=== PATIENT | male | born 1935 | race Caucasian/White ===

== ENCOUNTER 2024-04-07 07:36 | Observation (INO) | payer MEDICARE, SELFPAY ==
[2024-04-07] VITALS (17 sets, daily range): BP systolic 118–180; BP diastolic 67–93; PULSE 62–80; RESP 14–18; TEMP 36.1–37.2; O2SAT 91–100; BMI 29.1
[2024-04-07] MEDS: 0.9% Normal Saline (1000mL) 1,000 ML 15 ML IV (06:46)
--- NOTE | 2024-04-07 06:55 | PRE.ANES_ITS ---
ASA Classification* ASA Classification ASA Classification: 2 Assessment & Plan Anesthesia* Anesthesia Assessment Anesthesia Assessment: Discussed sedation and/or anesthesia options, risks, benefits, and alternatives with patient/parents/legal guardian/POA. Questions invited. The patient/parents/legal guardian/POA seems to understand and agrees to proceed with anesthesia plan. Reviewed the physical assessment, medical history, allergy history and patient home medications list prior to surgery/procedure/anesthetic and documented any changes. Performed airway and anesthesia risk assessments. Anesthesia Type Anesthesia Type: General Anesthesia Focused Assessment* Temperature: 97 F Pulse Rate: 80 Blood Pressure: 180/93 Respiratory Rate: 16 Pulse Ox: 96 Airway Assessment Mouth opens: >3 cm Mallampati Score: II Focused Labs Anesthesia Preop lab: CBC CHEMISTRY COAG Pre-Assessment Diagnosis/Proposed Procedure Planned Operative Procedure(s): Cysto,TUR,Prostate,Olympus and Removal of SP tube Anesthesia History Anesthesia History - destination sign repairer: Anesthesia History - destination sign repairer Hx Hospitalization Yes 03/24/24 11:26 Any Problems With Anesthesia No 03/24/24 11:26 Cholinesterase deficiency No 03/24/24 11:26 You/Your Family Experience No 03/24/24 11:26 fever (hyperthermia) with Relationship Recent Exposure to Contagious No 04/07/24 06:35 Disease Does patient have nerve No 03/24/24 11:26 stimulator Patient instructed to have device shut off --Does patient have Pacemaker No 04/07/24 06:35 or ICD? When Was Last Pacemaker Check QUESTION #4 FULL TEXT: You/Your Family Experience fever (hyperthermia) with Anesthesia Last Oral Intake Last Oral intake: Last Oral Intake NPO since 06:15 04/07/24 06:35 Meds taken in AM with sips of Yes 04/07/24 06:35 water? Meds patient instructed to SEE MAR 04/07/24 06:35 take am of surgery PONV PONV - destination sign repairer: PONV - destination sign repairer Female No 03/24/24 11:26 HX of Motion Sickness No 03/24/24 11:26 HX of N/V After Surgery No 03/24/24 11:26 Non-Smoker Yes 03/24/24 11:26 Duration of Surgery greater No 03/24/24 11:26 than 60 minutes Number of Risk Factors 1 03/24/24 11:26 PONV Score Low Risk 03/24/24 11:26 Height & Weight Height & Weight: Anesthesia: Height & Weight Height 5 ft 10 in 04/07/24 06:35 Weight: 92.079 kg 04/07/24 06:35 Body Mass Index (BMI) 29.1 04/07/24 06:35 Respiratory Assessment Respiratory Assessment - destination sign repairer: Respiratory Tract Infection Hx - destination sign repairer Hx Respiratory Tract Infection No 03/24/24 11:26 STOP Sleep Apnea STOP Sleep Apnea - destination sign repairer: STOP Sleep Apnea - destination sign repairer Hx Hypertension Yes: CONTROLLED ON MED 03/24/24 11:26 Hx Sleep Apnea No 03/24/24 11:26 CPAP BIPAP Do you snore loudly (louder No 03/24/24 11:26 than talking or can be heard Do you often feel tired/ No 03/24/24 11:26 fatigued/ sleepy during daytime? Has anyone observed you stop No 03/24/24 11:26 breathing during sleep? STOP Results Negative 03/24/24 11:26 QUESTION #5 FULL TEXT : Do you snore loudly (louder than talking or can be heard through closed doors)? Tobacco Use History Tobacco Use History - destination sign repairer: Tobacco Use History - destination sign repairer Tobacco Use Smoking Status Never smoker 03/24/24 11:26 Hx Tobacco Use No 03/24/24 11:26 Years Smoking Packs Smoked per Day Smoking Cessation Date was within the last 15 years Hx Smoking Cessation Date Hx Smoking Cessation Counseling Hematologic Medial History Hematologic Hx - destination sign repairer: Hematologic Medical Hx - certified pharmacy technician Hx of Blood Transfusion No 03/24/24 11:26 Hx of Transfusion in last 3 No 03/24/24 11:26 Months Date of Last Transfusion (if within last 3 months) Ever experience any problems No 03/24/24 11:26 with transfusion(s)? Specify any problems Hx of Preganancy in last 3 N/A 03/24/24 11:26 Months Nurse Filling Out Transfusion VCHRISTIN 03/24/24 11:26 & Questions: Date: 03/24/24 03/24/24 11:26 Time: 11:28 03/24/24 11:26 Patient unable to answer at this time (ie. confused, unrespo /Reproduction History /Reproductive History - destination sign repairer: /Reproductive Hx- destination sign repairer Hx Now Gestational Age (in weeks): EDC: Hx Hx Para Hx Section SAB Active Medications Active Medications: Current Medications Generic Name Dose Route Start Last Admin Trade Name Freq PRN Reason Stop Dose Admin Cefazolin Sodium 2 gm/ N/A 20 mls @ 400 mls/hr 04/07/24 07:30 IV 04/07/24 07:32 PREOP ONE Sodium Chloride 1,000 mls @ 15 mls/hr 04/07/24 06:20 04/07/24 06:46 IV 04/12/24 19:39 15 mls/hr .Q48H GAURI Administration Protocol [facility] Medical History Wears hearing aid Wears glasses Anemia Excessive bleeding DVT (deep venous thrombosis) Gastric reflux Non-smoker Hypertension Suprapubic catheter Home Medications ?Medication ?Instructions ?Recorded ?Last Taken ?Type ascorbic acid (vitamin C) 500 mg 500 mg PO DAILY 03/24/24 Unknown History tablet (C-500) calcium 315 mg (as 1 tab PO DAILY 03/24/24 Unknown History citrate)-vitamin D3 5 mcg (200 unit) tablet (Calcium Citrate + D) cholecalciferol (vitamin D3) 25 25 mcg PO DAILY 03/24/24 Unknown History mcg (1,000 unit) capsule (Vitamin D3) finasteride 5 mg tablet 5 mg PO DAILY 03/24/24 Unknown History fluticasone 500 mcg-salmeterol 50 1 inh inhalation PRN 03/24/24 Unknown History mcg/dose blistr powdr for inhalation fluticasone propionate 50 2 spray intranasal DAILY 03/24/24 Unknown History mcg/actuation nasal spray,suspension guaifenesin 600 mg tablet, 600 mg PO BID 03/24/24 Unknown History extended release 12 hr (Mucus Relief ER) multivitamin (Daily Multi-Vitamin 1 tab PO DAILY 03/24/24 Unknown History tablet) pantoprazole 40 mg tablet,delayed 40 mg PO DAILY 03/24/24 04/07/24 History release polyethylene glycol 3350 17 17 g PO DAILY PRN constipation 03/24/24 Unknown History gram/dose oral powder rivaroxaban 20 mg tablet (Xarelto) 20 mg PO DAILY 03/24/24 04/02/24 History valsartan 40 mg tablet 40 mg PO DAILY 03/24/24 04/07/24 History vit C 250 mg-vit E 90 mg-zinc 40 1 tab PO BID 03/24/24 Unknown History mg-copper 1 [id number] capsule (PreserVision AREDS-2) vitamin A 2,400 mcg capsule 2,400 mcg PO DAILY 03/24/24 Unknown History Allergy/AdvReac Type Severity Reaction Status Date / Time hydrocodone Allergy Severe Other Verified 04/07/24 06:34 Surgical History Hx of transurethral resection of prostate History of back surgery Social History Smoking Status: Never smoker Review of Systems (Anesthesia) ROS Narrative System reviewed and no additional complaints, except as documented.
[2024-04-07 07:07] LABS: Hematocrit 39.4 % (40-54); Hemoglobin 12.3 g/dL (13.0-16.5); Mean Corp Hgb Conc 31.2 g/dL (32-36); Mean Corpuscular Hgb 26.8 pg (27.0-32.0); Mean Corpuscular Volume 85.8 fL (80-94); Mean Platelet Vol. 9.8 fl (6.2-12.0); Platelet Count 217 K/mm3 (150-450); RBC Distribution Width CV 14.1 % (11.6-14.6); RBC Distribution Width SD 43.8 fl (35.1-43.9); Red Blood Count 4.59 M/mm3 (4.6-6.2)
--- NOTE | 2024-04-07 07:15 | PCM.HP.STD ---
HPI - General General Date of Service: 04/07/24 Chief Complaint: urine retention HPI Narrative NYDIA SALES, is a 89 M who presents for a turp for retention of urine, already had a turp at outside hospital and failed but on cysto still has obstructive tissue so going to repeat turp in hopes it will work and pt and void post op, will leave sp in place, pt is will to proceed but knows that surgery may fail and may not be able to void still? [facility] Medical History Wears hearing aid Wears glasses Anemia Excessive bleeding DVT (deep venous thrombosis) Gastric reflux Non-smoker Hypertension Suprapubic catheter Home Medications ?Medication ?Instructions ?Recorded ?Last Taken ?Type ascorbic acid (vitamin C) 500 mg 500 mg PO DAILY 03/24/24 Unknown History tablet (C-500) calcium 315 mg (as 1 tab PO DAILY 03/24/24 Unknown History citrate)-vitamin D3 5 mcg (200 unit) tablet (Calcium Citrate + D) cholecalciferol (vitamin D3) 25 25 mcg PO DAILY 03/24/24 Unknown History mcg (1,000 unit) capsule (Vitamin D3) finasteride 5 mg tablet 5 mg PO DAILY 03/24/24 Unknown History fluticasone 500 mcg-salmeterol 50 1 inh inhalation PRN 03/24/24 Unknown History mcg/dose blistr powdr for inhalation fluticasone propionate 50 2 spray intranasal DAILY 03/24/24 Unknown History mcg/actuation nasal spray,suspension guaifenesin 600 mg tablet, 600 mg PO BID 03/24/24 Unknown History extended release 12 hr (Mucus Relief ER) multivitamin (Daily Multi-Vitamin 1 tab PO DAILY 03/24/24 Unknown History tablet) pantoprazole 40 mg tablet,delayed 40 mg PO DAILY 03/24/24 04/07/24 History release polyethylene glycol 3350 17 17 g PO DAILY PRN constipation 03/24/24 Unknown History gram/dose oral powder rivaroxaban 20 mg tablet (Xarelto) 20 mg PO DAILY 03/24/24 04/02/24 History valsartan 40 mg tablet 40 mg PO DAILY 03/24/24 04/07/24 History vit C 250 mg-vit E 90 mg-zinc 40 1 tab PO BID 03/24/24 Unknown History mg-copper 1 [id number] capsule (PreserVision AREDS-2) vitamin A 2,400 mcg capsule 2,400 mcg PO DAILY 03/24/24 Unknown History Allergy/AdvReac Type Severity Reaction Status Date / Time hydrocodone Allergy Severe Other Verified 04/07/24 06:34 Surgical History Hx of transurethral resection of prostate History of back surgery Social History Smoking Status: Never smoker Vital Signs Vital Signs Vital Signs: 04/07/24 06:35 04/07/24 06:35 04/07/24 06:55 Temperature 97 F L 97 F L Temperature Source Temporal Pulse Rate 80 80 Respiratory Rate 16 16 Respiratory Pattern Normal Blood Pressure 180/93 H 180/93 H Blood Pressure Mean 122 Blood Pressure Source Monitor Blood Pressure Position Semi-Fowlers Blood Pressure Location Left Arm Pulse Ox 96 96 Oxygen Delivery Method Room Air Weight Weight: 92.079 kg Body Mass Index (BMI) 29.1 Results Lab / Micro Data 04/07/24 06:49 04/07/24 06:49 Labs: Laboratory Results - last 24 hr 04/07/24 06:49: WBC 6.0, RBC 4.59 L, Hgb 12.3 L, Hct 39.4 L, MCV 85.8, MCH 26.8 L, MCHC 31.2 L, RDW Std Deviation 43.8, RDW Coeff of Vikas 14.1, Plt Count 217, MPV 9.8
[2024-04-07 07:20] LABS: Anion Gap 2 (5-15); BUN 20 mg/dL (7-18); BUN/Creat Ratio 12.8 RATIO (10-20); Chloride 108 mmol/L (98-107); Creatinine, Serum 1.56 mg/dL (0.70-1.30); EST Glomerular Filtration Rate 45 mL/min (>60); Est Glom Filt Rate - Afr Amer 54 mL/min (>60); Estimated Creatinine Clearance 37.33 ml/min; Glucose 112 mg/dL (74-106); Potassium 4.4 mmol/L (3.5-5.1); Sodium Level 140 mmol/L (136-145)
[2024-04-07] MEDS: Cefazolin 2 GM in Syringe IV (07:30)
--- NOTE | 2024-04-07 07:30 | PROS_PTH ---
PATIENT: NYDIA SALES LOC: MS3 U#:[id number] AGE/SX: 89/M ROOM: [facility] [place]/07/[address]: Dr. Sina Augustine MD : [id number] BED: 1 DIS: 04/08/2024 SPEC #: [id number] RECD: 04/07/24 10:19 STATUS: ABBY DONOHUE #: [id number] KARIN: 04/07/24 07:[address]: Sina Augustine DEPT: SURGICAL PATHOLOGY RECD BY: Link Salazar ENTERED: 04/07/24 11:30 SP TYPE: TURP OTHR DR: Dr. Elvin Damian MD Tissues: Prostate, NOS Procedures: Surgery Specimen Level IV HEADER OPERATION: Transurethral resection, prostate PRE-OP DIAGNOSIS: TISSUE SUBMITTED: Prostate tissue MICROSCOPIC DIAGNOSIS Prostate tissue, transurethral resection: Benign nodular hyperplasia, glandular and stromal types. Focal squamous metaplasia. Chronic inflammation. AM. 04/08/2024 MICROSCOPIC DESCRIPTION Slides are reviewed. GROSS DESCRIPTION Received is one container labeled with the patient's name and designated prostate tissue. The specimen consists of multiple irregular fragments of pink-silvestre, rubbery, soft tissue that in aggregate weigh 7.7 gm and measure in aggregate 3.5 x 4.5 x 1.0 cm. The entire specimen is submitted in eight cassettes. 04/07/2024 TC:3 CPT: 74172
--- NOTE | 2024-04-07 07:39 | DCINST_ITS ---
Discharge Instructions Diet Discharge Diet: No restrictions, Light diet - advance as tolerated and Soft diet DC O2, CPAP, BIPAP needs Additional Home O2 Discharge instructions: No Dressing / Incision Discharge Activity: Return to Normal Activity May shower in (days): 1 Dressing / Incision Catheter: - (SP tube Clamped) Follow Up Care Please Follow Up With: Sina Augustine MD When: call for follow up appt [phone] Test Results: Test results from this visit will be discussed in further detail at your follow- up appointment, if applicable. Discharge Plan Admission Primary Reason for Your Visit: turp Attending Provider: Sina Augustine Primary Care Provider: Elvin Damian Instructions Print Language: Maori Discharge Orders/Prescriptions Prescriptions: New ciprofloxacin HCl [Cipro] 500 mg tablet 500 mg PO BID Qty: 14 0RF Continued pantoprazole 40 mg tablet,delayed release (DR/EC) 40 mg PO DAILY polyethylene glycol 3350 17 gram/dose powder 17 g PO DAILY PRN (Reason: constipation) fluticasone propionate 50 mcg/actuation spray,suspension 2 spray INTRANASAL DAILY valsartan 40 mg tablet 40 mg PO DAILY guaifenesin [Mucus Relief ER] 600 mg tablet extended release 12hr 600 mg PO BID PreserVision AREDS-2 250-90-40-1 mg capsule 1 tab PO BID vitamin A 2,400 mcg capsule 2,400 mcg PO DAILY cholecalciferol (vitamin D3) [Vitamin D3] 25 mcg (1,000 unit) capsule 25 mcg PO DAILY multivitamin [Daily Multi-Vitamin] Tablet 1 tab PO DAILY ascorbic acid (vitamin C) [C-500] 500 mg tablet 500 mg PO DAILY calcium citrate-vitamin D3 [Calcium Citrate + D] 315 mg-5 mcg (200 unit) table t 1 tab PO DAILY fluticasone propion-salmeterol 500-50 mcg/dose blister with device 1 inh INHALATION PRN Patient Comments: INHALE 1 DOSE BY MOUTH TWICE DAILY DIRECTED Held Xarelto 20 mg tablet 20 mg PO DAILY Hold Instructions: Resume on 04/21/24. Patient Comments: STOP 4 DAYS PRIOR TO SURGERY PER DR. AUGUSTINE Discontinued finasteride 5 mg tablet 5 mg PO DAILY Referrals / Follow Up: Elvin Damian MD [Primary Care Provider] - Sina Augustine MD [Med Staff - Active Staff] - Disposition Disposition (needs filled in before D/C Order can be placed): Home, Self Care
--- NOTE | 2024-04-07 08:48 | PCM.OPRPT ---
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 Post-Operative Diagnosis: The same Surgery/Procedure Performed: Transurethral section of prostate electronic data interchange specialist: No Type of Anesthesia: General RN Documented Start/Stop Times: Operation Date: 04/07/24 07:30 Case Time Into Pre-Op 04/07/24 06:18 Out of Pre-Op 04/07/24 07:27 Procedure Start Time: 07:45 Procedure Stop Time: 08:48 Select all DRAINS/GRAFTS/IMPLANTS that apply: Drains Drain details: Ackerman catheter and SP tube Estimated Blood Loss: Minimal le Specimen collected: Yes Description of specimen(s) removed: Prostate tissue Description of surgery: Indication this is an 89-year-old male who developed retention of urine and he underwent a TURP and a Ackerman placement and suprapubic catheter placement at outside hospital felt Ackerman catheter had been removed but he was still not able to urinate so he been having a chronic suprapubic catheter for last few months. He came in to see me for second opinion as to why he is not able to urinate we did a cystoscopy in the office and I found that on cystoscopy he still had significant obstruction of the prostate channel even though he had a prior TURP just done recently there was still a lot of obstruction near the apex and the sphincter of the prostatic channel and the fact obstruction was so severe that it would sealed in together and was very weak and hard to get through the blockage into the bladder so because of this I recommended that we do a TURP this would be a second TURP first TURP was done by another surgeon and this will be done by myself to resect the residual tissue that is still causing obstruction. Patient was taken back to the operating room after smooth induction of anesthesia went into the urethra with a 26 Swedish continuous-flow resectoscope once I got through the urethra the entire length urethra was clear of any strictures or problems sphincter was identified the verumontanum was identified but then right beyond the verumontanum the there was prostatic hypertrophy and blockage and it had sealed together and there was a tiny opening into the bladder I then pushed through this and then I saw the bladder neck the bladder neck was wide open I then switched over to the medium size loop and started resecting all this obstructive tissue I resected back to the verumontanum I then resected the obstructive tissue in the right side of the prostate obstructive tissue in the left side prostate tissue in the roof and then resected a wide open channel at this point I had no obstructive tissue from the verumontanum into the bladder neck. I did a flow test had a wide open flow the sphincter looked intact but I did have to resect a lot of tissue real close of the sphincter. Harsha that all the chips out of the bladder and we left a suprapubic catheter in place as a safety valve irrigation through the SP tube and out through the Ackerman urine was completely clear I cauterized the prostate to control bleeding and is taken back to the PACU in stable condition we will remove the catheter tomorrow for a voiding trial and either go home with an SP tube or be able to urinate his own and he will use the SP tube for voiding trial given the clamp to start retraining his bladder see him in the office in a few weeks to decide whether we remove the SP tube or keep it in place. Surgical Findings: Had a lot of significant obstruction in the prostatic channel even after a prior TURP done by another hospital Complications Complications: No Admit VTE Documentation VTE Present on Admission: No VTE Mechan Device Prophylaxis: SCD's VTE Pharm Prophylaxis ordered?: No
--- NOTE | 2024-04-07 08:51 | PCM.POST.ANE ---
Anesthesia: Postop Eval I Current Vital Signs Temperature: 98.4 F Pulse Rate: 73 Blood Pressure: 159/89 Respiratory Rate: 18 Pulse Ox: 96 Assessment Airway patent: Yes Spontaneous unlabored respirations: Yes nausea: No Vomiting: No Anesthesia Complication: No Fluid Hydration Crystalloid volume administer (ml): 1,000 Total IV fluid infused: 1,000 Progress Note Anesthesia document: Postop Eval 1 completed: Yes
[2024-04-07] MEDS: 0.9% Normal Saline (1000mL) 1,000 ML 75 ML IV ×2 (09:42→20:06)
--- NOTE | 2024-04-07 10:58 | POSTOPAN2_ITS ---
Anesthesia Postop Eval I Sum Postop Eval Completion status Anesthesia document: Postop Eval 1 completed: Yes Anesthesia Postop Eval I Summary Anesthesia Postop Eval I Summary: Anesthesia Postop Eval I: Assessment Summary Airway patent Yes 04/07/24 08:51 GENERAL MAINTENANCE MECHANIC.CSIR Spontaneous unlabored Yes 04/07/24 08:51 GENERAL MAINTENANCE MECHANIC.CSIR respirations Mental status nausea No 04/07/24 08:51 GENERAL MAINTENANCE MECHANIC.CSIR Vomiting No 04/07/24 08:51 GENERAL MAINTENANCE MECHANIC.CSIR Anesthesia Postop Eval I: Fluid Summary Crystalloid volume administer 1,000 04/07/24 08:51 GENERAL MAINTENANCE MECHANIC.CSIR (ml) Colloids volume administered ( ml) Blood Product volume administered (ml) Total IV fluid infused 1,000 04/07/24 08:51 GENERAL MAINTENANCE MECHANIC.CSIR Anesthesia Postop Eval I: Summary Notes Anesthesia Complication No 04/07/24 08:51 GENERAL MAINTENANCE MECHANIC.CSIR Anesthesia Complication Comment: Post-operative progress note Anesthesia: Postop Eval II Evaluation Mental status: Awake Pain Level: 0 nausea: No Vomiting: No
--- NOTE | 2024-04-07 10:58 | PCM.POSTANE2 ---
Anesthesia Postop Eval I Sum Postop Eval Completion status Anesthesia document: Postop Eval 1 completed: Yes Anesthesia Postop Eval I Summary Anesthesia Postop Eval I Summary: Anesthesia Postop Eval I: Assessment Summary Airway patent Yes 04/07/24 08:51 REAL ESTATE SALES AGENT.CSIR Spontaneous unlabored Yes 04/07/24 08:51 REAL ESTATE SALES AGENT.CSIR respirations Mental status nausea No 04/07/24 08:51 REAL ESTATE SALES AGENT.CSIR Vomiting No 04/07/24 08:51 REAL ESTATE SALES AGENT.CSIR Anesthesia Postop Eval I: Fluid Summary Crystalloid volume administer 1,000 04/07/24 08:51 REAL ESTATE SALES AGENT.CSIR (ml) Colloids volume administered ( ml) Blood Product volume administered (ml) Total IV fluid infused 1,000 04/07/24 08:51 REAL ESTATE SALES AGENT.CSIR Anesthesia Postop Eval I: Summary Notes Anesthesia Complication No 04/07/24 08:51 REAL ESTATE SALES AGENT.CSIR Anesthesia Complication Comment: Post-operative progress note Anesthesia: Postop Eval II Evaluation Mental status: Awake Pain Level: 0 nausea: No Vomiting: No
[2024-04-07] MEDS: Ciprofloxacin 400 MG/200 ML BAG 200 MG IV ×2 (12:13→23:19)
--- NOTE | 2024-04-07 12:52 | CASEMGMT ---
Charge nurse made aware pt would like to speak to RN CM regarding dc planning. RN CM into pt room, pt sitting up in bed with and son at bedside. Pt states that his had brain surgery recently and was in a rehab facility and he wants to know if he can stay an extra night in the hospital. Made pt aware that with his procedure, he has a dc in for tomorrow. Asked pt if he felt he couldn't manage at home. Pt states he ambulates without a device, but board states 1-2 assist. Pt stated he had HHC currently then stated it ended. Discussed SNF if pt needed. Pt does not want pt to go to SNF and does not want HHC again. Pt son did not speak for entire 20 minute conversation until the end when he asked his father why he had the RN CM come in. He states they will do at home what they were doing prior to this surgery. Pt asked about transportation resources but did not want any if he had to pay for them. Pt then states he agrees with and he will dc home without services. He is aware to ask for RN CM should he change his mind.
[2024-04-08 03:21] VITALS: BP 135/81; PULSE 75; RESP 16; TEMP 36.6; O2SAT 94
[2024-04-08 06:40] VITALS: BP 127/75; PULSE 70; RESP 16; TEMP 36.6; O2SAT 96
--- NOTE | 2024-04-08 07:21 | PCM.PN.GU ---
Subjective Subjective Doing well s/p TURP d/c lopez leave SP tube clamped. if he cant urinate he can unclamp and drain and then reclamp and try again!! show him how to unclamp and reclamp SP tube. home today Objective Data Objective Data Vital Signs: Vital Signs Temp Pulse Resp BP Pulse Ox O2 Del Method O2 Flow Rate 98 F 70 16 127/75 H 96 Room Air 2 04/08/24 06:40 04/08/24 06:40 04/08/24 06:40 04/08/24 06:40 04/08/24 06:40 04/08/24 06:40 04/07/24 10:50 Oxygen Flow Rate (L/min) 2 Oxygen Delivery Method Room Air Weight: 92.079 kg Body Mass Index (BMI) 29.1 Intake & Output: Intake and Output for Last 24 Hours 04/06/24 04/07/24 04/08/24 23:59 23:59 23:59 Intake Total 2200.00 / 2200.00 500 / 500 Output Total 1400 / 1400 100 / 100 Balance 800.00 / 800.00 400 / 400 Lab / Micro Data 04/07/24 06:49 04/07/24 06:49
[2024-04-08 07:44] VITALS: PULSE 80
[2024-04-08 09:48] VITALS: BP 144/88; PULSE 80; RESP 18; TEMP 37.3; O2SAT 98
[2024-04-08] MEDS: Docusate Sodium 100 MG Capsule 200 MG PO (09:50)
[2024-04-08] MEDS: Losartan Potassium 25 MG Tablet PO (09:50)
[2024-04-08] MEDS: Pantoprazole Sodium 40 MG Tablet PO (09:50)
[2024-04-08 12:00] VITALS: BP 124/70; PULSE 75; RESP 20; TEMP 36.6; O2SAT 95
--- NOTE | 2024-04-08 12:35 | NURSING ---
Call daughter Serena that pt is ready to be picked up. Said she will be here when she can be here.
--- NOTE | 2024-04-08 12:36 | NURSING ---
Dr Deleon removed cath this am.
== END 2024-04-08 13:54 | disposition home or self-care (01) ==
LOC: SDC 10:51 → MS3 10:51
PROVIDERS: Anesthesiology; Admitting Provider Urology; PCP Family Medicine; Referring Provider Urology; Visit Provider Urology
PROC: (CPT 52630; principal; 2024-04-07 07:20)
DX: N40.1 Benign prostatic hyperplasia with lower urinary tract symptoms (principal); Z93.50 Unspecified cystostomy status; K21.9 Gastro-esophageal reflux disease without esophagitis; Z79.01 Long term (current) use of anticoagulants; N13.8 Other obstructive and reflux uropathy; R33.8 Other retention of urine; I10 Essential (primary) hypertension; Z86.718 Personal history of other venous thrombosis and embolism; Z79.899 Other long term (current) drug therapy; Z79.51 Long term (current) use of inhaled steroids
CPT/HCPCS: 52630; 80048; 85027; 88305; 93005; 96361; 96365; 96366; 99221; G0378; J0744; J2405

== ENCOUNTER → 2024-10-30 | Outpatient (CLI) | payer MEDICARE, SELFPAY ==
--- OUTSIDE RECORDS SUMMARY | 2024-10-30 09:35 | XMS RPT_ITS | CCD ---
Author Organization [facility] Care Team Providers Care Group Home Counselor Name Role Phone Rickie Hermann Loi Primary Care Provider [phone] RICKIE HERMANN DANIEL Primary Care UnavailMAK Mares Admitting Unavailable MARY CHAVEZ Attending Unavailable Hermann Damian MD Primary Care Provider Ciro Frausto MD Unavailable [phone] Sana Marcos DO Unavailable Dana Plummer RN Unavailable Unavailable Davide, Anshul Admitting Unavailable Davide, Anshul Attending Unavailable Davide, Asnhul Referring Unavailable Rickie, Hermann Primary Care Unavailable RICKIE, HERMANN Primary Care Unavailable PRITI, SANA Attending Unavailable RICKIE, HERMANN Primary Care Unavailable RICKIE, HERMANN Primary Care Unavailable RICKIE, HERMANN Primary Care Unavailable KING BAEZA Attending Unavailable PRITI, SANA Admitting Unavailable PRITIERONSANA Attending Unavailable RICKIE, HERMANN Primary Care Unavailable RICKIE, HERMANN Primary Care Unavailable ANDRES SERVIN Attending Unavailable RICKIE, HERMANN Primary Care Unavailable CONRAD KNOX Attending Unavailable RICKIE, HERMANN Primary Care Unavailable ALBERTO ANGELES Attending Unavailable YASHIRA RODRIGUEZ Attending Unavailable RICKIE, HERMANN Primary Care Unavailable BRIDENTHAL, GRETCHEN Attending Unavailable RICKIE, HERMANN Primary Care Unavailable BRIDENTHAL, GRETCHEN Attending Unavailable RICKIE, HERMANN Primary Care Unavailable YASHIRA RODRIGUEZ Attending Unavailable RICKIE, HERMANN Primary Care Unavailable ANDRES SERVIN Referring Unavailable RICKIE, HERMANN Primary Care Unavailable BRIDENTHAL, GRETCHEN Attending Unavailable RICKIE, HERMANN Primary Care Unavailable RICKIE, HERMANN Attending Unavailable RICKIE, HERMANN Primary Care [facility] Unavailable SANA MARCOS Attending Unavailable HERMANN DAMIAN [facility] Unavailable HERMANN DAMIAN [facility] Unavailable SANA MARCOS Attending Unavailable RICKIEHERMANN WEEMS [facility] Unavailable [facility] Unavailable Allergies Allergy Classification Reported Allergen(s) Allergy Type Date of Onset Reaction(s) Facility beta Sitosterol / ZINC CITRATE (9 sources) beta Sitosterol / ZINC CITRATE Drug Allergy 2 Other [facility] Opioid Agonists (9 sources) HYDROcodone Drug Allergy 4 Other, Swelling [facility] (20 sources) beta Sitosterol / ZINC CITRATE Drug Allergy 2 Other [facility] (20 sources) HYDROcodone; Translations: [HYDROCODONE] Drug Allergy 4 Other, Swelling [facility] (20 sources) Levonorgestrel- Ethinyl Estrad; Translations: [LEVONORGESTREL -ETHINYL ESTRAD] Drug Allergy 4 Unknown [facility] (20 sources) Lisinopril Propensity to adverse reactions 4 Cough [facility] (1 source) HYDROcodone Drug Allergy 4 [facility] Repository Medications Current Medications Medication Drug Class(es) Dates Sig (Normalized) Sig (Original) albuterol 0.83 mg/ml inhalation solution (20 sources) beta2-Adrenergic Agonist Start: 01-13-2024 albuterol (2.5 MG/3ML) 0.083% nebulizer solution Indications: Wheezing Take 3 mL (2.5 mg) by nebulization every 6 hours as needed for wheezing. 150 mL 01/13/2024 Active Start: 10-05-2023 End: 10-06-2023 2.5 mg, Nebulization, As nee ded, wheezing, Starting on 10/05/23 at 1015, Every 1 to 3 hours as needed 24 hr alfuzosin hydrochloride 10 mg extended release oral tablet (20 sources) alpha-Adrenergic Mando Start: 09-03-2023 End: 12-02-2023 take 1 tablet by mouth once daily alfuzosin ER (Uroxatral) 10 MG 24 hr tablet Indications: Benign Prostatic Hypertrophy Take 1 tablet (10 mg) by mouth daily. Do not crush, chew, or split. 90 tablet 2 09/03/2023 12/02/2023 Active ALPRAZolam 0.25 mg disintegrating oral tablet (1 source) Benzodiazepine Start: 05-28-2019 ALPRAZolam (NIRAVAM) dissolvable tablet 0.25 mg amoxicillin 875 mg / clavulanate 125 mg oral tablet (3 sources) Penicillin-class Antibacterial Start: 2024 End: 04-08-2024 take 1 tablet by mouth twice daily amoxicillin-clavu lanate (Augmentin) 875-125 MG tablet Indications: Acute maxillary sinusitis, recurrence not specified Take 1 tablet by mouth 2 times daily for 10 days. 20 tablet 2024 04/08/2024 Active Start: 08-21-2023 End: 08-28-2023 take 1 tablet by mouth twice daily amoxicillin-clavulanate (Augmentin) 875-125 MG tablet Indications: Acute bacterial sinusitis Take 1 tablet by mouth 2 times daily for 7 days. 14 tablet 0 08/21/2023 08/28/2023 Active ascorbic acid 500 mg oral tablet (20 sources) Vitamin C take 500 mg by mouth at bedtime ASCORBIC ACID PO Take 500 mg by mouth before bedtime. Active ASCORBIC ACID PO Take by mouth. 0 Active ascorbic acid 113 mg / copper gluconate 0.4 mg / docosahexaenoic acid 87.5 mg / eicosapentaenoic acid 163 mg / lutein 2.5 mg / tocopherol acetate 100 unt / zeaxanthin 0.5 mg / zinc oxide 17.4 mg oral capsule (1 source) Vitamin C Multiple Vitamins-Minerals (PreserVision AREDS 2) capsule Take by mouth. Active benzonatate 200 mg oral capsule (1 source) Non-narcotic Antitussive Start: End: take 1 capsule by mouth three times daily as needed for cough benzonatate (Tessalon) 200 MG capsule Indications: Chronic cough Take 1 capsule (200 mg) by mouth 3 times daily as needed for cough for up to 7 days. Do not crush or chew. 21 capsule 11/12/2023 11/19/2023 Active Calcium Citrate / Vitamin D (20 sources) take 600 mg by mouth once at bedtime Calcium Citrate-Vitamin D (CALCIUM CITRATE + PO) Take 600 mg by mouth before bedtime. Suspended take 600 mg by mouth once at bed time Calcium Citrate-Vitamin D (CALCIUM CITRATE + PO) Take 600 mg by mouth before bedtime. Active take 600 mg by mouth once at bed time Calcium Citrate-Vitamin D (CALCIUM CITRATE + PO) Take 600 mg by mouth before bedtime. 0 Suspended take 600 mg by mouth once at bed time Calcium Citrate-Vitamin D (CALCIUM CITRATE + PO) Take 600 mg by mouth before bedtime. 0 Active Cholecalciferol (20 sources) Vitamin D take 125 ug by mouth at bedtime CHOLECALCIFEROL PO Take 125 mcg by mouth before bedtime. Suspended take 125 ug by mouth at bedtime CHOLECALCIFEROL PO Take 125 mcg by mouth before bedtime. Active take 125 ug by mouth at bedtime CHOLECALCIFEROL PO Take 125 mcg by mouth before bedtime. 0 Suspended take 125 ug by mouth at bedtime CHOLECALCIFEROL PO Take 125 mcg by mouth before bedtime. 0 Active CHOLECALCIFEROL PO Take by mouth. 0 Active ciclopirox 7.7 mg/ml topical cream (20 sources) Start: 09-11-2023 ciclopirox (Loprox) 0.77 % cream Indications: Toenail fungus Apply topically 2 times daily x4 weeks to affected toenails 90 g 09/11/2023 Active 1 ml diphenhydrAMINE hydrochloride 50 mg/ml cartridge (1 source) Histamine-1 Receptor Antagonist Start: 05-28-2019 End: 05-28-2019 diphenhydrAMINE (BENADRYL) injection 12.5 mg docusate sodium 50 mg / sennosides, chcf 8.6 mg oral tablet (20 sources) Start: 09-29-2023 End: 09-29-2024 take 1 tablet by mouth every twenty-four hours as needed for constipation and constipation and constipation senna-docusate sodium (Senokot-S) 8.6-50 MG tablet Indications: Constipation, unspecified constipation type Take 1 tablet by mouth Daily as needed for constipation (if no bowel movement in 3 days). 30 tablet 1 09/29/2023 09/29/2024 Active fexofenadine hydrochloride 180 mg oral tablet (2 sources) Histamine-1 Receptor Antagonist Start: 09-29-2024 take 1 tablet by mouth once daily as needed fexofenadine (Radha) 180 MG tablet Indications: Allergic rhinitis, unspecified seasonality, unspecified trigger Take 1 tablet (180 mg) by mouth Daily as needed (allergies). 90 tablet 1 09/29/2024 Active finasteride 5 mg oral tablet (20 sources) 5-alpha Reductase Inhibitor Start: 09-29-2023 End: 12-15-2024 take 1 tablet by mouth once daily finasteride (Proscar) 5 MG tablet Indications: Benign Prostatic Hypertrophy Take 1 tablet (5 mg) by mouth daily. Do not crush, chew, or split. 90 tablet 3 12/16/2023 12/15/2024 Active 60 actuat fluticasone propionate 0.5 mg/actuat / salmeterol 0.05 mg/actuat dry powder inhaler (20 sources) Corticosteroid, beta2-Adrenergi c Agonist Start: 12-16-2023 take 1 dose by mouth twice daily Fluticasone-Salmete rol 500-50 MCG/ACT aerosol powder INHALE 1 DOSE BY MOUTH TWICE DAILY DIRECTED 12/16/2023 Active 12 hr guaiFENesin 600 mg extended release oral tablet (20 sources) Start: 10-05-2023 End: 10-05-2024 take 1 tablet by mouth twice daily guaiFENesin (Mucinex) 600 MG 12 hr tablet Take 1 tablet (600 mg) by mouth 2 times daily. Do not crush, chew, or split. 60 tablet 3 10/13/2023 02/10/2024 Active 1 ml HYDROmorphone hydrochloride 1 mg/ml cartridge (4 sources) Opioid Agonist Start: 05-28-2019 HYDROmorphone (DILAUDID) injection 1 mg Start: 05-28-2019 HYDROmorphone (DILAUDID) injection 0.5 mg Start: 05-28-2019 HYDROmorphone (DILAUDID) injection 0.25 mg ipratropium bromide 0.042 mg/actuat metered dose nasal spray (2 sources) Anticholinergic Start: 10-04-2022 End: 10-11-2022 take 2 spray(s) nasal route three times daily ipratropium (Atrovent) 0.06 % nasal spray Indications: Rhinorrhea associated with the Common Cold Administer 2 sprays into each nostril 3 times daily for 7 days. 15 mL 0 10/04/2022 Active 4 ml labetalol hydrochloride 5 mg/ml cartridge (1 source) beta-Adrenergic Mando Start: 05-28-2019 labetalol (NORMODYNE;TRANDA TE) injection 5 mg 1 ml meperidine hydrochloride 25 mg/ml cartridge (1 source) Opioid Agonist Start: 05-28-2019 meperidine (DEMEROL) injection 12.5 mg mometasone furoate 0.05 mg/actuat metered dose nasal spray (2 sources) Corticosteroid Start: 09-29-2024 take 2 spray(s) nasal route once daily mometasone (Nasonex) 50 MCG/ACT nasal spray Indications: Allergic rhinitis, unspecified seasonality, unspecified trigger Administer 2 sprays into each nostril daily. 17 g 5 09/29/2024 Active Multiple Vitamins-Minerals (CENTRUM SILVER 50+MEN PO) (20 sources) Multiple Vitamins-Minerals (CENTRUM SILVER 50+MEN PO) Take by mouth Nightly. Active Multiple Vitamin s-Minerals (CENTRUM SILVER 50+MEN PO) Take by mouth Nightly. Suspended Multiple Vitamin s-Minerals (CENTRUM SILVER 50+MEN PO) Take by mouth 1 (one) time each day. Active Multiple Vitamin s-Minerals (CENTRUM SILVER 50+MEN PO) Take by mouth 1 (one) time each day. 0 Suspended Multiple Vitamin s-Minerals (CENTRUM SILVER 50+MEN PO) Take by mouth 1 (one) time each day. 0 Active NON FORMULARY (20 sources) take 1 drop(s) into the eye(s) twice daily as needed NON FORMULARY 2 times daily as needed. Unk eye drop Suspended take 1 drop(s) into the eye(s) twice daily as needed NON FORMULARY 2 times daily as needed. U nk eye drop Active take 1 drop(s) into the eye(s) twice daily as needed NON FORMULARY 2 times daily as needed. U nk eye drop 0 Suspended take 1 drop(s) into the eye(s) twice daily as needed NON FORMULARY 2 times daily as needed. U nk eye drop 0 Active omega-3 acid ethyl esters (chcf) 1000 mg oral capsule (2 sources) take 1 capsule by mouth once daily before breakfast Napoleon-3 Fatty Acids (OMEGA-3 FISH OIL) 1000 MG CAPS Take 1,000 mg by mouth every morning (before breakfast) 0 Active 2 ml ondansetron 2 mg/ml injection (1 source) Serotonin-3 Receptor Antagonist Start: 0 End: 0 ondansetron (ZOFRAN) injection 4 mg 24 hr oxybutynin chloride 10 mg extended release oral tablet (20 sources) Cholinergic Muscarinic Antagonist Start: 5 End: 5 take 1 tablet by mouth once daily oxybutynin XL (Ditropan-XL) 10 MG 24 hr tablet Indications: OAB (overactive bladder) Take 1 tablet (10 mg) by mouth daily. 90 tablet 1 10/13/2024 Active Start: 02-11-2022 End: 08-05-2023 take 1 tablet by mouth once daily oxybutynin XL (Ditropan-XL) 10 MG 24 hr tablet Take 10 mg by mouth daily. 0 02/11/2022 08/05/2023 Discontinued (Stop taking at discharge) polyethylene glycol 3350 23471 mg powder for oral solution (20 sources) Osmotic Laxative Start: 12-16-2023 End: 12-15-2024 polyethylene glycol, PEG, 3350 (MiraLax) 17 GM/SCOOP powder Indications: Constipation, unspecified constipation type Take 17 g by mouth daily. 850 g 3 12/16/2023 12/15/2024 Active Start: 09-29-2023 End: 11-28-2023 polyethylene glycol, PEG, 33 50 (MiraLax) 17 GM/SCOOP powder Indications: Constipation, unspecified constipation type Take 17 g by mouth daily. 1020 g 09/29/2023 11/28/2023 Active Start: 07-31-2023 End: 08-05-2023 17 g, Oral, Daily, First dos e on Alyce 07/31/23 at 1515, Phase II/On Unit, Bowel Regimen - for prevention of constipation., , On hold since [place] 08/03/2023 at 0852 until manually unheld 1 ml promethazine hydrochloride 25 mg/ml injection (1 source) Phenothiazine Start: 05-28-2019 End: 05-28-2019 promethazine (PHENERGAN) injection 6.25 mg rivaroxaban 20 mg oral tablet (20 sources) Factor Xa Inhibitor Start: 04-12-2024 End: 10-13-2024 take 1 tablet by mouth once daily at mealtime rivaroxaban (Xarelto) 20 MG tablet Indications: Other pulmonary embolism without acute cor pulmonale, unspecified chronicity (HCC) Take 1 tablet (20 mg) by mouth daily. Take with food. 90 tablet 1 10/13/2024 Active Start: 04-07-2024 End: 04-09-2024 take 1 tablet by mouth once daily at mealtime rivaroxaban (Xarelto) 20 MG tablet Take 1 tablet by mouth once daily with food 90 tablet 1 04/07/2024 04/09/2024 Discontinued (Reorder) Start: 11-11-2023 End: 01-06-2024 take 1 tablet by mouth once daily at mealtime rivaroxaban (Xarelto) 20 MG tablet Take 1 tablet (20 mg) by mouth daily. Take with food. Do not start before January 07, 2024. 90 tablet 1 01/07/2024 Active Start: 11-07-2023 take 1 tablet by brian th once daily at mealtime rivaroxaban (Xarelto) 20 MG tablet Take 1 tablet (20 mg) by mouth daily. Take with food. 30 tablet 2 11/07/2023 Active Start: 11-26-2022 End: 04-03-2023 take 1 tablet by mouth once daily, then take 8 tablets by mouth at mealtime rivaroxaban (Xarelto) 20 MG tablet Indications: Acute deep vein thrombosis (DVT) of popliteal vein of left lower extremity (HCC) Take 1 tablet (20 mg) by mouth daily. Take with food. Do not start before November 26, 2022. 30 tablet 2 11/26/2022 04/03/2023 Discontinued (Therapy completed) Start: 11-04-2022 End: 12-16-2022 take 1 tablet by mouth twice daily at mealtime rivaroxaban (Xarelto) 15 MG tablet Indications: Acute deep vein thrombosis (DVT) of popliteal vein of left lower extremity (HCC) Take 1 tablet (15 mg) by mouth 2 times daily for 21 days. Take with food. 42 tablet 0 11/04/2022 12/16/2022 Discontinued (Therapy completed) rosuvastatin calcium 5 mg oral tablet (6 sources) HMG-CoA Reductase Inhibitor Start: 04-13-2024 End: 10-10-2024 take 1 tablet by mouth once daily rosuvastatin (Crestor) 5 MG tablet Take 1 tablet (5 mg) by mouth daily. 30 tablet 04/13/2024 Active Completed/Discontinued Medications Medication Drug Class(es) Dates Sig (Normalized) Sig (Original) acetaminophen 325 mg oral tablet (9 sources) Start: 01-05-2024 End: 01-06-2024 take 1 tablet by mouth every six hours as needed for pain Start: 01-05-2024 End: 01-05-2024 take 1000 mg by mouth once, then take 4000 mg by mouth every twenty-four hours 1,000 mg, Oral, Once, On 01/05/24 at 0730, For 1 dose, Preprocedure, Maximum dose of acetaminophen is 4000 mg from all sources in 24 hours. Do not administer if patient has taken tylenol Start: 10-03-2023 End: 10-06-2023 take 1 tablet by mouth every six hours as needed for pain and fever acetaminophen (Tylenol) tablet 650 mg Start: 07-31-2023 End: 07-31-2023 acetaminophen (Tylenol) tabl et 1,000 mg Start: 05-28-2019 End: 05-28-2019 acetaminophen (TYLENOL) tabl et 1,000 mg acetaminophen 325 mg / oxyCODONE hydrochloride 5 mg oral tablet (9 sources) Opioid Agonist Start: 01-06-2024 End: 02-12-2024 take 1 tablet by mouth every six hours as needed for pain oxyCODONE-acetaminophen (Percocet) 5-325 MG tablet Indications: Benign prostatic hyperplasia with lower urinary tract symptoms Take 1 tablet by mouth every 6 hours as needed for severe pain (7-10) for up to 5 days. 10 tablet 01/06/2024 4:51 PM EDT 01/06/2024 02/12/2024 Discontinued Start: 08-05-2023 End: 08-12-2023 take 1 tablet by mouth every eight hours as needed for pain oxyCODONE-acetaminophen (Percocet) 5-325 MG tablet Indications: Lumbar stenosis with neurogenic claudication Take 1 tablet by mouth every 8 hours as needed for severe pain (7-10) for up to 7 days. 21 tablet 0 08/05/2023 08/12/2023 Active Start: 07-31-2023 End: 08-05-2023 take 1 tablet by mouth every four hours as needed for pain oxyCODONE-acetaminophen (Percocet) 5-325 MG per tablet 1 tablet Start: 05-28-2019 End: 05-31-2019 take 1 tablet by mouth every six hours as needed for pain, then take 1 tablet by mouth as needed for pain oxyCODONE-acetaminophen (PERCOCET) 5-325 MG per tablet Indications: Umbilical hernia without obstruction and without gangrene Take 1 tablet by mouth every 6 hours as needed for Pain for up to 3 days. Intended supply: 3 days. Take lowest dose possible to manage pain 20 tablet 0 05/28/2019 05/31/2019 Active albuterol 0.833 mg/ml / ipratropium bromide 0.167 mg/ml inhalation solution (2 sources) Anticholinergic, beta2-Adrenergic Agonist Start: 10-04-2023 End: 10-04-2023 3 mL, Nebulization, Once, On 10/04/23 at 0045, For 1 dose amLODIPine 10 mg oral tablet (20 sources) Dihydropyridine Calcium Channel Mando Start: 04-19-2022 End: 04-10-2023 take 1 tablet by mouth once daily amLODIPine (Norvasc) 10 MG tablet Indications: Essential hypertension, benign Take 1 tablet (10 mg) by mouth daily. 90 tablet 1 10/18/2022 04/10/2023 Discontinued (Side effects) Start: 10-07-2019 take 1 tablet by brian th once daily amLODIPine (NORVASC) 5 MG tablet Indications: Essential hypertension, benign Take 1 tablet by mouth daily 90 tablet 1 10/07/2019 Active Start: 12-25-2018 take 1 tablet by brian th once daily amLODIPine (NORVASC) 5 MG tablet Indications: Essential hypertension, benign Take 1 tablet by mouth daily 90 tablet 1 12/25/2018 Active apixaban 5 mg oral tablet (16 sources) Factor Xa Inhibitor Start: 11-03-2023 End: 11-07-2023 take 1 tablet by mouth twice daily apixaban (Eliquis) 5 MG tablet Take 1 tablet (5 mg) by mouth 2 times daily. 60 tablet 11/03/2023 11/07/2023 Discontinued Start: 10-06-2023 End: 12-10-2023 take 2 tablets by mouth twice daily, then take 1 tablet by mouth twice daily apixaban (Eliquis) 5 MG tablet Take 2 tablets (10 mg) by mouth 2 times daily for 5 days, THEN 1 tablet (5 mg) 2 times daily. 60 tablet 10/06/2023 11/03/2023 Discontinued (Reorder) Start: 10-04-2023 End: 10-06-2023 apixaban (Eliquis) tablet 10 mg bacitracin 0.5 unt/mg topical ointment (2 sources) Start: 01-05-2024 End: 01-06-2024 bisacodyl 10 mg rectal suppository (4 sources) Stimulant Laxative Start: 07-31-2023 End: 08-05-2023 take 10 mg rectal route every twenty-four hours as needed for constipation 10 mg, Rectal, Daily PRN, constipation, Starting on Alyce 07/31/23 at 1507, Phase II/On Unit, 2nd line for treatment of constipation - give scheduled (in addition to 1st line agent) if no bowel movement in past 48 hours Start: 07-31-2023 End: 08-05-2023 take 1 tablet by mouth every twenty-four hours as needed for constipation 5 mg, Oral, Daily PRN, constipation, Starting on Alyce 07/31/23 at 1507, Phase II/On Unit, 1st line for treatment of constipation - give scheduled if no bowel movement in past 24 hours. Do not crush, chew, or split. calcium carbonate 500 mg ora l tablet (20 sources) End: 10-04-2023 calcium carbonate (Os-Mariana) 1 250 (500 Ca) MG tablet Take by mouth daily. 10/04/2023 Discontinued (Therapy completed) calcium chloride 0.0014 meq/ ml / potassium chloride 0.004 meq/ml / sodium chloride 0.103 meq/ml / sodium lactate 0.028 meq/ml injectable solution (3 sources) Start: 07-31-2023 End: 07-31-2023 lactated Ringer's (LR) infus ion Start: 05-28-2019 lactated ringe rs infusion Dhqogyn-Upgrterrh-Xaax 333-1 33-5 MG tablet (19 sources) End: 04-10-2023 Tdpubyr-Xyyfnjjvz-Blzi 333-133-5 MG tablet Take by mouth. 0 04/10/2023 Discontinued (Therapy completed) Calcium-Magnesiu m-Zinc 333-133-5 MG tablet Take by mouth. 0 Active carboxymethylcellulose sodium 5 mg/ml ophthalmic solution (2 sources) Start: 10-05-2023 End: 10-06-2023 1 drop, Both Eyes, As needed, dry eyes, Starting on Fri10/05/23 at 1004 carboxymethylcellulose 0.0025 mg/mg / hypromellose 0.003 mg/mg ophthalmic gel (20 sources) End: 05-20-2023 Carboxymethylce ll-Hypromellose 0.25-0.3 % gel Apply to affected eye(s). 0 05/20/2023 Discontinued ceFAZolin 2000 mg injection (2 sources) Cephalosporin Antibacterial Start: 07-31-2023 End: 07-31-2023 take 2000 mg intravenously every eight hours 2,000 mg, IntraVENous, Administer over 30 Minutes, Every 8 hours, First dose on Alyce 07/31/23 at 1515, For 2 doses, Phase II/On Unit, premix bag, Suspected Indication (Select all that apply): Surgical Prophylaxis ceFAZolin (ANCEF) 2 g in dextrose 5 % 100 mL IVPB (1 source) Start: 05-28-2019 End: 05-28-2019 ceFAZolin (ANCEF) 2 g in dextrose 5 % 100 mL IVPB cefTRIAXone (Rocephin) 1,000 mg in sodium chloride 0.9 % 50 mL IVPB Mini-Bag Plus (8 sources) Start: 01-28-2024 End: 01-28-2024 1,000 mg, IntraVENous, at 100 mL/hr, Administer over 30 Minutes, Once, On Fri01/28/24 at 1755, For 1 dose, Mini-Bag Plus bag, Suspected Indication (Select all that apply): Urinary Tract Infection Start: 10-05-2023 End: 10-06-2023 1,000 mg, IntraVENous, at 10 0 mL/hr, Administer over 30 Minutes, Every 24 hours, First dose (after last modification) on Fri10/05/23 at 0400, For 3 doses, Mini-Bag Plus bag, Suspected Indication (Select all that apply): Urinary Tract Infection Start: 10-03-2023 End: 10-04-2023 1,000 mg, IntraVENous, at 10 0 mL/hr, Administer over 30 Minutes, Every 24 hours, First dose on Fri10/03/23 at 2230, Mini-Bag Plus bag, Suspected Indication (Select all that apply): Urinary Tract Infection Start: 10-03-2023 End: 10-03-2023 1,000 mg, IntraVENous, at 10 0 mL/hr, Administer over 30 Minutes, Once, On Fri10/03/23 at 1305, For 1 dose, Mini-Bag Plus bag, Suspected Indication (Select all that apply): Urinary Tract Infection cefuroxime 500 mg oral tablet (12 sources) Cephalosporin Antibacterial Start: 01-28-2024 End: 02-12-2024 take 1 tablet by mouth twice daily cefuroxime (Ceftin) 500 MG tablet Take 1 tablet (500 mg) by mouth 2 times daily for 7 days. 14 tablet 01/28/2024 02/12/2024 Discontinued (Therapy completed) celecoxib 200 mg oral capsule (1 source) Nonsteroidal Anti-inflammatory Drug Start: 05-28-2019 End: 05-28-2019 celecoxib (CELEBREX) capsule 200 mg cephalexin 500 mg oral capsule (1 source) Cephalosporin Antibacterial Start: 11-04-2022 End: 11-04-2022 cephalexin (Keflex) 500 MG capsule Indications: Cellulitis of left lower extremity Take 1 capsule (500 mg) by mouth in the morning and 1 capsule (500 mg) at noon and 1 capsule (500 mg) in the evening and 1 capsule (500 mg) before bedtime. Do all this for 7 days. 28 capsule 0 11/04/2022 11/04/2022 Discontinued cetirizine hydrochloride 10 mg oral tablet (3 sources) Histamine-1 Receptor Antagonist Start: 07-31-2023 End: 08-05-2023 take 10 mg by mouth once daily 10 mg, Oral, Daily, First dose on Fri07/31/23 at 2200, Phase II/On Unit End: 05-20-2019 take 1 tablet by mouth once daily cetirizine (ZYRTEC ALLERGY) 10 MG tablet Take 10 mg by mouth daily 0 05/20/2019 Discontinued (Therapy completed) ciprofloxacin 500 mg oral tablet (7 sources) Quinolone Antimicrobial Start: 04-07-2024 End: 10-13-2024 take 1 tablet by mouth twice daily ciprofloxacin (Cipro) 500 MG tablet Take 500 mg by mouth 2 times daily. 04/07/2024 10/13/2024 Discontinued (Med list cleanup) clobetasol propionate 0.5 mg/ml topical solution (4 sources) Corticosteroid Start: 03-10-2023 End: 05-20-2023 clobetasol (Temovate) 0.05 % external solution APPLY TOPICALLY AT NIGHT FOR 2 WEEKS TAKING 1 WEEK OFF BEFORE REPEATING NEEDED FOR FLARES 0 03/10/2023 05/20/2023 Discontinued Cranberry, Vacc oxycoccus, (Cranberry Extract) 200 MG capsule (19 sources) End: 04-10-2023 Cranberry, Vacc oxycoccus, (Cranberry Extract) 200 MG capsule Take by mouth. 0 04/10/2023 Discontinued (Therapy completed) Cranberry, Vacc oxycoccus, (Cranberry Extract) 200 MG capsule Take by mouth. 0 Active diphenhydrAMINE / Phenylephrine (1 source) Histamine-1 Receptor Antagonist, alpha-1 Adrenergic Agonist End: 10-18-2022 diphenhydrAMINE-Phenylephrin e (RA ALLERGY PLUS SINUS PO) Take by mouth. 0 10/18/2022 Discontinued [id number] PAP (ALLERGY RELIEF PLUS SINUS PO) (4 sources) End: 10-18-2022 [id number] (ALL ERGY RELIEF PLUS SINUS PO) Take by mouth. 0 10/18/2022 Discontinued diphenhydrAMINE- PE-APAP (ALLERGY RELIEF PLUS SINUS PO) Take by mouth. 0 Active docosahexaenoic acid 120 mg / eicosapentaenoic acid 180 mg oral capsule (20 sources) End: 04-10-2023 omega-3 (Fish Oil) 1000 MG capsule Take 1,000 mg by mouth. 0 04/10/2023 Discontinued (Therapy completed) docusate sodium 100 mg oral capsule (20 sources) Start: 08-21-2023 End: 03-09-2024 take 1 capsule by mouth once daily as needed for constipation docusate sodium (Colace) 100 MG capsule Indications: Drug-induced constipation Take 1 capsule (100 mg) by mouth Daily as needed for constipation. 90 capsule 1 09/11/2023 10/06/2023 Discontinued (Stop taking at discharge) Start: 07-31-2023 End: 08-05-2023 take 100 mg by mouth twice daily for constipation 100 mg, Oral, 2 times daily, First dose on Alyce 07/31/23 at 2100, Phase II/On Unit, Bowel Regimen - for prevention of constipation., , On hold since 08/03/2023 at 0852 until manually unheld 0.4 ml enoxaparin sodium 100 mg/ml prefilled syringe (2 sources) Low Molecular Weight Heparin Start: 10-04-2023 End: 10-04-2023 inject 40 mg by subcutaneous injection every twenty-four hours 40 mg, SubCUTAneous, Every 24 hours scheduled (Daily), First dose on 10/04/23 at 0900, Indication of Use: Prophylaxis-DVT/PE, Indications: Prophylaxis of Venous Thromboembolism famotidine 20 mg oral tablet (20 sources) Histamine-2 Receptor Antagonist Start: 08-02-2023 End: 08-05-2023 famotidine (Pepcid) tablet 20 mg Start: 05-28-2019 End: 10-13-2024 famotidine (PEPCID) tablet 2 0 mg famotidine (Pepcid) 20 mg in sodium chloride (PF) 0.9 % 10 mL injection (2 sources) Start: 08-01-2023 End: 08-02-2023 famotidine (Pepcid) 20 mg in sodium chloride (PF) 0.9 % 10 mL injection 2 ml fentaNYL 0.05 mg/ml injection (2 sources) Opioid Agonist Start: 07-31-2023 End: 07-31-2023 fentaNYL (Sublimaze) injection 25 mcg ferrous sulfate 325 mg oral tablet (20 sources) Start: 10-14-2023 End: 10-13-2024 take 1 tablet by mouth every other day ferrous sulfate 325 (65 Fe) MG tablet Indications: Anemia, unspecified type Take 1 tablet (325 mg) by mouth every other day. 45 tablet 1 10/14/2023 11/12/2023 Discontinued (Therapy completed) End: 10-14-2023 take 65 mg by mouth once daily Ferrous Sulfate Dried ( FERROUS SULFATE CR PO) Take 65 mg by mouth 1 (one) time each day. 10/14/2023 Discontinued take 65 mg by mouth once daily F errous Sulfate Dried (FERROUS SULFATE CR PO) Take 65 mg by mouth 1 (one) time each day. Active take 65 mg by mouth once daily F errous Sulfate Dried (FERROUS SULFATE CR PO) Take 65 mg by mouth 1 (one) time each day. 0 Suspended take 65 mg by mouth once daily F errous Sulfate Dried (FERROUS SULFATE CR PO) Take 65 mg by mouth 1 (one) time each day. 0 Active Ferrous Sulfate Dried (FERROUS SULFATE CR PO) Take by mouth. 0 Active fluticasone propionate 0.05 mg/actuat metered dose nasal spray (20 sources) Corticosteroid Start: 09-09-2022 End: 09-29-2024 take 2 spray(s) nasal route once daily fluticasone (Flonase) 50 MCG/ACT nasal spray Indications: Sinus congestion Administer 2 sprays into each nostril daily. Shake gently. Before first use, prime pump. After use, clean tip and replace cap. 16 g 5 09/11/2023 09/29/2024 Discontinued (Formulary change) 4 ml furosemide 10 mg/ml injection (7 sources) Loop Diuretic Start: 10-03-2023 End: 10-04-2023 20 mg, IntraVENous, Once, On 10/04/23 at 0045, For 1 dose Start: 04-07-2023 End: 04-10-2023 take 1 tablet by mouth once daily furosemide (Lasix) 20 MG tablet Indications: Bilateral lower extremity edema Take 1 tablet (20 mg) by mouth daily for 2 days. 2 tablet 0 04/07/2023 04/10/2023 Discontinued (Therapy completed) gabapentin 100 mg oral capsule (13 sources) Anti-epileptic Agent Start: 09-12-2022 End: 04-03-2023 take 3 capsules by mouth every twelve hours gabapentin (Neurontin) 100 MG capsule Take 300 mg by mouth in the morning and 300 mg in the evening. 0 09/12/2022 04/03/2023 Discontinued (Therapy completed) Start: 09-12-2022 take 1 capsule by [facility] once daily gabapentin (Neurontin) 100 MG capsule TAKE 1 CAPSULE BY MOUTH ONCE DAILY DIRECTED 0 09/12/2022 Active Start: 05-28-2019 End: 05-28-2019 gabapentin (NEURONTIN) capsu le 100 mg 1 ml hydrALAZINE hydrochloride 20 mg/ml injection (3 sources) Arteriolar Vasodilator Start: 07-31-2023 End: 08-05-2023 take 10 mg intravenously every six hours as needed for hypertension hydrALAZINE (Apresoline) injection 10 mg Start: 05-28-2019 hydrALAZINE (A PRESOLINE) injection 5 mg hydroCHLOROthiazide 25 mg / triamterene 37.5 mg oral tablet (12 sources) Potassium-sparing Diuretic, Thiazide Diuretic Start: 04-10-2023 End: 08-05-2023 take 1 tablet by mouth once daily triamterene-hydrochlorothiazide (Maxzide-25) 37.5-25 MG tablet Take 1 tablet by mouth daily. 30 tablet 0 04/10/2023 08/05/2023 Discontinued (Stop taking at discharge) hydrocortisone 25 mg/ml topical cream (6 sources) Corticosteroid Start: 04-03-2023 End: 04-02-2024 hydrocortisone 2.5 % cream Indications: Dermatitis Apply topically 2 times daily as needed for irritation or rash. 30 g 0 04/03/2023 04/10/2023 Discontinued (Therapy completed) ibuprofen 200 mg oral tablet (9 sources) Nonsteroidal Anti-inflammatory Drug End: 08-05-2023 take 3 tablets by mouth every eight hours as needed ibuprofen 200 MG tablet Take 600 mg by mouth every 8 hours as needed. 0 08/05/2023 Discontinued (Stop taking at discharge) ibuprofen 200 MG tablet Take by mouth. 0 Active iopamidol (Isovue-370) 76 % injection 75 mL (2 sources) Start: 10-03-2023 End: 10-03-2023 iopamidol (Isovue-370) 76 % injection 75 mL ketoconazole 20 mg/ml medicated shampoo (4 sources) Azole Antifungal Start: 01-22-2023 End: 05-20-2023 ketoconazole (NIZOral) 2 % shampoo WASH THE SCALP DAILY WHEN FLARED, THEN 1-2 TIMES PER WEEK FOR MAINTENANCE. LATHER & LET SIT FOR A FEW MINUTES BEFORE RINSING. 0 01/22/2023 05/20/2023 Discontinued lidocaine 0.04 mg/mg medicated patch (5 sources) Antiarrhythmic, Amide Local Anesthetic Start: 07-31-2023 End: 08-05-2023 apply 1 dose topically once daily, then apply 1 dose topically every twelve hours 1 patch, Topical, Administer over 12 Hours, Daily, First dose on Alyce 07/31/23 at 1515, Phase II/On Unit, Apply patch to LUMBAR SPINE. Patch may remain in place for up to 12 hours in any 24 hour period. Start: 05-20-2023 End: 05-20-2023 lidocaine (Xylocaine) 2 % in jection 4 mL Start: 05-20-2023 End: 05-20-2023 lidocaine (Xylocaine) 2 % in jection 4 mL Start: 05-28-2019 End: 05-28-2019 lidocaine PF 1 % injection 1 mL lisinopril 20 mg oral tablet (13 sources) Angiotensin Converting Enzyme Inhibitor Start: 04-19-2022 End: 11-18-2022 take 1 tablet by mouth once daily lisinopril 20 MG tablet Indications: Essential hypertension, benign Take 1 tablet (20 mg) by mouth daily. 90 tablet 1 10/18/2022 11/18/2022 Discontinued (Side effects) Start: 10-07-2019 take 1 tablet by brian th once daily lisinopril (PRINIVIL;ZESTRIL) 20 MG tablet Indications: Essential hypertension, benign Take 1 tablet by mouth daily 90 tablet 1 10/07/2019 Active Start: 12-25-2018 take 1 tablet by brian th once daily lisinopril (PRINIVIL;ZESTRIL) 20 MG tablet Indications: Essential hypertension, benign Take 1 tablet by mouth daily 90 tablet 1 12/25/2018 Active loratadine 10 mg oral tablet (20 sources) End: 10-04-2023 take 10 mg by mouth at bedtime Loratadine (CLARITIN PO) Take 10 mg by mouth before bedtime. 10/04/2023 Discontinued (Therapy completed) Loratadine (CLAR ITIN PO) Take by mouth daily. 0 Active Loratadine (CLAR ITIN PO) Take by mouth. 0 Active 1 ml methylPREDNISolone acetate 40 mg/ml injection (2 sources) Corticosteroid Start: 05-20-2023 End: 05-20-2023 methylPREDNISolone acetate (DEPO-Medrol) injection 40 mg Start: 05-20-2023 End: 05-20-2023 methylPREDNISolone acetate ( DEPO-Medrol) injection 40 mg morphine injection 2 mg (2 sources) Start: 07-31-2023 End: 08-05-2023 morphine injection 2 mg 1 ml naloxone hydrochloride 0.4 mg/ml injection (6 sources) Opioid Antagonist Start: 01-05-2024 End: 01-06-2024 0.4 mg, IntraVENous, Every 5 min PRN, opioid reversal, respiratory depression, Starting on 01/05/24 at 1400, +++ For RR Start: 08-05-2023 End: 08-05-2023 naloxone (Narcan) 4 mg/0.1 m L nasal spray Administer 1 spray (4 mg) into affected nostril(s) Once for 1 dose. May repeat every 2-3 minutes if needed, alternating nostrils, until medical assistance becomes available. 2 each 0 08/05/2023 08/05/2023 Active Start: 07-31-2023 End: 08-05-2023 naloxone (Narcan) injection 0.4 mg Normal saline (2 sources) Start: 10-04-2023 End: 10-06-2023 Nasal, Every 2 hour PRN, congestion, Starting on 10/04/23 at 1326 ondansetron ODT (Zofran-ODT) disintegrating tablet 4 mg (6 sources) Start: 01-05-2024 End: 01-06-2024 take 1 tablet by mouth every eight hours as needed for nausea and vomiting ondansetron ODT (Zofran-ODT) disintegrating tablet 4 mg Start: 10-03-2023 End: 10-06-2023 take 1 tablet by mouth every eight hours as needed for nausea and vomiting ondansetron ODT (Zofran-ODT) disintegrating tablet 4 mg Start: 07-31-2023 End: 08-05-2023 take 1 tablet by mouth every eight hours as needed for nausea and vomiting ondansetron ODT (Zofran-ODT) disintegrating tablet 4 mg oxyCODONE hydrochloride 5 mg oral tablet (9 sources) Opioid Agonist Start: 01-30-2024 End: 01-30-2024 take 10 mg by mouth once 10 mg, Oral, Once, On Fri01/30/24 at 2310, For 1 dose Start: 01-30-2024 End: 01-30-2024 take 10 mg by mouth once 10 mg, Oral, Once, On Fri at 2310, For 1 dose Start: 01-29-2024 End: 01-29-2024 take 10 mg by mouth once 10 mg, Oral, Once, On Alyce at 2345, For 1 dose Start: 01-28-2024 End: 01-28-2024 take 10 mg by mouth once 10 mg, Oral, Once, On Fri at 1715, For 1 dose Start: 01-05-2024 End: 01-06-2024 take 1 tablet by mouth every six hours as needed for pain and pain 5 mg, Oral, Every 6 hours PRN, moderate pain (4-6), severe pain (7-10), Starting on Fri01/05/24 at 1104 Start: 05-28-2019 End: 05-28-2019 oxyCODONE (ROXICODONE) immed iate release tablet 5 mg pantoprazole 40 mg delayed release oral tablet (20 sources) Proton Pump Inhibitor Start: 11-27-2023 End: 10-13-2024 take 1 tablet by mouth once daily pantoprazole (ProtoNix) 40 MG EC tablet Take 1 tablet (40 mg) by mouth daily. 90 tablet 1 05/24/2024 10/13/2024 Discontinued (Med list cleanup) perflutren protein A microsphere (Optison) 3 mL in sodium chloride (PF) 0.9 % 10 mL IV syringe (2 sources) Start: 01-06-2024 End: 01-06-2024 0-10 mL, IntraVENous, IMG once PRN, other, Suboptimal echo image, Starting on Fri01/06/24 at 1559, For 1 dose, CV Procedural Medications, Administer via slow IVP for suboptimal echocardiogram enhancement. May administer as divided doses to reach optimal image enhancement pregabalin 75 mg oral capsule (6 sources) Start: 03-20-2023 End: 04-10-2023 take 1 capsule by mouth twice daily pregabalin (Lyrica) 75 MG capsule TAKE 1 CAPSULE BY MOUTH TWICE DAILY DIRECTED 0 03/20/2023 04/10/2023 Discontinued (Therapy completed) simethicone 80 mg chewable tablet (2 sources) Start: 08-01-2023 End: 08-05-2023 simethicone (Mylicon) chewable tablet 80 mg 5 ml sodium chloride 9 mg/ml injection (20 sources) Start: 01-05-2024 End: 01-06-2024 take 50 mL intravenously every hour 50 mL/hr, IntraVENous, Continuous, Starting on Fri01/05/24 at 1115 Start: 01-05-2024 End: 01-06-2024 10 mL, IntraVENous, Every 12 hours scheduled (2 times per day), First dose on 01/05/24 at 1115 Start: 01-05-2024 End: 01-06-2024 Start: 01-05-2024 End: 01-06-2024 Start: 08-03-2023 End: 08-04-2023 sodium chloride 0.9 % infusi on Start: 07-31-2023 End: 08-05-2023 10 mL, IntraVENous, Every 12 hours scheduled (2 times per day), First dose on Alyce 07/31/23 at 2100, Phase II/On Unit Start: 07-31-2023 End: 08-02-2023 take 75 mL intravenously every hour 75 mL/hr, IntraVENous, Continuous, Starting on Alyce 07/31/23 at 1515, Phase II/On Unit Start: 07-31-2023 End: 08-05-2023 take 100 mL intravenously every hour as needed, then take 20 mL intravenously every hour as needed 5-250 mL/hr, IntraVENous, PRN, if patient receiving piggyback infusions and maintenance fluids are not ordered OR KVO fluids to protect IV site / prevent frequent line interruptions/ long duration, Starting on Alyce 07/31/23 at 1507, Phase II/On Unit, For piggyback infusion, administer at same rate as piggyback for a total of 25 mL. Enter 25 mL into dose field and piggyback rate into rate field of order. If piggyback is infusing at a rate less than 100 mL/hr, enter 25 mL into dose field and 100 mL/hr into rate field of order. For KVO fluids, enter rate of 20 mL/hr or less into rate field of order. Start: 07-31-2023 End: 08-05-2023 take 10 mL intravenously once as needed 10 mL, IntraVENous, PRN, line care, Starting on Alyce 07/31/23 at 1507, Phase II/On Unit, After every IV line use Start: 05-28-2019 sodium chlorid e flush 0.9 % injection 10 mL tamsulosin hydrochloride 0.4 mg oral capsule (15 sources) alpha-Adrenergic Mando Start: 08-19-2023 End: 05-15-2024 take 1 capsule by mouth twice daily tamsulosin (Flomax) 0.4 MG 24 hr capsule Indications: Urinary retention Take 1 capsule (0.4 mg) by mouth 2 times daily. 180 capsule 3 08/19/2023 09/03/2023 Discontinued (Ineffective) Start: 08-06-2023 End: 08-19-2023 take 1 capsule by mouth once daily tamsulosin (Flomax) 0.4 MG 24 hr capsule Indications: Urinary retention Take 1 capsule (0.4 mg) by mouth daily. 90 capsule 3 08/19/2023 08/19/2023 Discontinued Start: 08-02-2023 End: 08-05-2023 tamsulosin (Flomax) 24 hr ca psule 0.4 mg tiZANidine 4 mg oral tablet (16 sources) Central alpha-2 Adrenergic Agonist Start: 07-31-2023 End: 08-21-2023 take 1 tablet by mouth every eight hours as needed tiZANidine (Zanaflex) 4 MG tablet Take 1 tablet (4 mg) by mouth every 8 hours as needed for muscle spasms for up to 10 days. 30 tablet 0 08/05/2023 08/21/2023 Discontinued (Therapy completed) End: 08-05-2023 take 1 capsule by mouth twice daily as needed for muscle spasms tiZANidine (Zanaflex) 4 MG capsule Take 4 mg by mouth 2 times daily as needed for muscle spasms. 0 08/05/2023 Discontinued (Stop taking at discharge) trospium chloride 20 mg oral tablet (2 sources) Cholinergic Muscarinic Antagonist Start: 07-31-2023 End: 08-01-2023 take 20 mg by mouth once daily 1 hour(s) before mealtime 20 mg, Oral, Daily, First dose on Alyce 07/31/23 at 1515, Phase II/On Unit, Substituted for oxybutynin (DITROPAN); fesoterodine (TOVIAZ); darifenacin (ENABLEX); solifenacin (VESICARE); tolterodine IR (DETROL); tolterodine ER (DETROL LA). Give one hour before meals. Turmeric extract (19 sources) End: 04-10-2023 TURMERIC PO Take by mouth. 0 04/10/2023 Discontinued (Therapy completed) TURMERIC PO Take by mouth. 0 Active valsartan 40 mg oral tablet (20 sources) Angiotensin 2 Receptor Mando Start: 10-04-2023 End: 10-06-2023 take 40 mg by mouth once daily 40 mg, Oral, Daily, First dose on 10/04/23 at 0900 Start: 09-11-2023 End: 04-11-2025 take 1 tablet by mouth once daily valsartan (Diovan) 40 MG tablet Indications: Essential hypertension, benign Take 1 tablet (40 mg) by mouth daily. 90 tablet 1 05/24/2024 10/13/2024 Discontinued (Reorder) Start: 08-17-2023 End: 09-11-2023 take 1 tablet by mouth in the morning valsartan (Diovan) 80 MG tablet Take 80 mg by mouth in the morning. 0 08/17/2023 09/11/2023 Discontinued (Side effects) Start: 07-31-2023 End: 08-05-2023 40 mg, Oral, Daily, First do se on Alyce 07/31/23 at 1515, Phase II/On Unit, Hold if systolic blood pressure less than 100, , On hold since 08/03/2023 at 1305 until manually unheld Start: 05-26-2023 End: 08-21-2023 take 1 tablet by mouth in the morning valsartan (Diovan) 40 MG tablet Take 1 tablet by mouth in the morning. 0 05/26/2023 08/21/2023 Discontinued (Med list cleanup) Start: 11-18-2022 End: 07-05-2023 take 0.5 tablet by mouth once daily valsartan (Diovan) 40 MG tablet Indications: Essential hypertension, benign Take 0.5 tablets (20 mg) by mouth daily. 90 tablet 1 04/10/2023 Active zinc gluconate 50 mg oral tablet (7 sources) End: 10-18-2022 take 1 tablet by mouth once daily zinc gluconate 50 MG tablet Take 50 mg by mouth daily. 0 10/18/2022 Discontinued (Therapy completed) Problems Active Problems Problem Classification Problem Date Documented Da te Episodic/Chronic Chronic kidney disease (20 sources) Chronic kidney disease stage 3; Translations: [Chronic renal disease, stage III] Onset: 12-14-2021 02-03-2022 Chronic Chronic kidney disease (2 sources) Chronic kidney disease; Translations: [Chronic kidney disease, stage 3a (HCC)] Onset: 10-12-2024 Diabetes mellitus without complication (20 sources) Prediabetes; Translations: [Prediabetes] Onset: 12-27-2018 12-27-2018 Episodic Disorders of lipid metabolism (20 sources) Hyperlipidemia; Translations: [Hyperlipidemia, unspecified] Onset: 04-11-2020 02-03-2022 Chronic Essential hypertension (20 sources) Benign essential hypertension; Translations: [Essential (primary) hypertension] Onset: 06-21-2016 Resolved: 10-13-2023 06-21-2016 Chronic Genitourinary symptoms and ill-defined conditions (20 sources) Urge incontinence of urine; Translations: [Urge incontinence] Onset: 08-08-2016 Resolved: 10-13-2024 08-08-2016 Chronic Hyperplasia of prostate (20 sources) Benign prostatic hypertrophy with outflow obstruction; Translations: [Benign prostatic hyperplasia with lower urinary tract symptoms] Onset: 08-08-2016 Resolved: 04-06-2018 04-06-2018 Chronic Mycoses (1 source) Onychomycosis of toenails; Translations: [Tinea unguium] 09-11-2023 Episodic Osteoarthritis (20 sources) Osteoarthritis of right hip joint; Translations: [Unilateral primary osteoarthritis, right hip] Onset: 12-05-2021 02-03-2022 Chronic Other acquired deformities (1 source) Lumbar spondylolisthesis; Translations: [Spondylolisthesis, lumbar region] 06-18-2023 Episodic Other aftercare (1 source) Encounter for other specified aftercare; Translations: [Aftercare] Onset: 08-05-2023 Episodic Other diseases of bladder and urethra (20 sources) Overactive bladder; Translations: [Overactive bladder] Onset: 10-18-2022 10-18-2022 Chronic Other diseases of bladder and urethra (2 sources) Overactive bladder; Translations: [Overactive bladder] Onset: 10-18-2022 Chronic Other gastrointestinal disorders (1 source) Drug-induced constipation; Translations: [Drug induced constipation] 09-11-2023 Episodic Other gastrointestinal disorders (1 source) Slow transit constipation; Translations: [Slow transit constipation] 10-13-2024 Episodic Other hereditary and degenerative nervous system conditions (20 sources) Hereditary essential tremor; Translations: [Essential tremor] Onset: 02-27-2017 02-27-2017 Chronic Other hereditary and degenerative nervous system conditions (2 sources) Essential tremor; Translations: [Essential tremor] Onset: 02-03-2022 Chronic Other lower respiratory disease (6 sources) Wheezing; Translations: [Wheezing] 01-13-2024 Episodic Other non-epithelial cancer of skin (1 source) Basal cell carcinoma of nose; Translations: [Basal cell carcinoma of nose] Onset: 10-07-2019 10-07-2019 Chronic Other non-traumatic joint disorders (1 source) Pain in right hip joint; Translations: [Pain in right hip] Episodic Other nutritional; endocrine; and metabolic disorders (20 sources) Obese class I; Translations: [Obesity, unspecified] Onset: 08-05-2023 08-20-2023 Chronic Other upper respiratory disease (7 sources) Seasonal allergic rhinitis; Translations: [Other seasonal allergic rhinitis] Onset: 10-02-2017 10-02-2017 Chronic Other upper respiratory disease (20 sources) Chronic rhinitis; Translations: [Chronic rhinitis] Onset: 10-18-2022 10-18-2022 Chronic Other upper respiratory disease (20 sources) Allergic rhinitis; Translations: [Allergic rhinitis, unspecified] Onset: 10-02-2017 11-04-2022 Chronic Other upper respiratory disease (2 sources) Allergic rhinitis, unspecified; Translations: [Allergic rhinitis, unspecified] Onset: 11-04-2022 Chronic Other upper respiratory disease (20 sources) Congestion of nasal sinus; Translations: [Nasal congestion] Onset: 10-13-2023 09-11-2023 Episodic Other upper respiratory disease (2 sources) Nasal congestion; Translations: [Nasal congestion] Onset: 10-13-2023 Episodic Pulmonary heart disease (20 sources) Acute pulmonary embolism; Translations: [Other pulmonary embolism without acute cor pulmonale] Onset: 10-13-2023 Resolved: 04-12-2024 10-13-2023 Episodic Residual codes; unclassified (1 source) Influenza vaccination declined; Translations: [Immunization not carried out because of patient refusal] 04-12-2024 Episodic Unclassified (20 sources) Patient Stated Goal Onset: 11-11-2023 11-11-2023 Unclassified (2 sources) Post-op; Translations: [Post-op] Onset: 02-12-2024 Unclassified (2 sources) Other; Translations: [Other] Onset: 01-15-2024 Past or Other Problems Problem Classification Problem Date Documented Da te Episodic/Chronic Abdominal hernia (20 sources) Umbilical hernia; Translations: [Umbilical hernia without obstruction or gangrene] Onset: 04-06-2018 04-06-2018 Episodic Allergic reactions (20 sources) Contact dermatitis due to poison gt; Translations: [Allergic contact dermatitis due to plants, except food] Onset: 11-22-2020 Resolved: 04-19-2022 04-19-2022 Episodic Complication of device; implant or graft (12 sources) Obstructed indwelling urinary catheter; Translations: [Other mechanical complication of indwelling urethral catheter, initial encounter] Onset: 01-29-2024 01-30-2024 Episodic Complications of surgical procedures or medical care (20 sources) Delayed recovery from general anesthesia; Translations: [Other complications of anesthesia, initial encounter] Onset: 12-29-2023 12-29-2023 Episodic Deficiency and other anemia (20 sources) Anemia; Translations: [Anemia, unspecified] Onset: 08-21-2023 Resolved: 10-13-2024 08-21-2023 Episodic Genitourinary symptoms and ill-defined conditions (20 sources) Retention of urine; Translations: [Retention of urine, unspecified] Onset: 08-05-2023 Resolved: 10-13-2024 08-19-2023 Episodic Other connective tissue disease (20 sources) Triggering of digit; Translations: [Trigger finger, left ring finger] Onset: 01-05-2021 02-03-2022 Episodic Other connective tissue disease (20 sources) Trochanteric bursitis; Translations: [Trochanteric bursitis, right hip] Onset: 10-10-2020 02-03-2022 Episodic Other connective tissue disease (20 sources) Tendinitis of left rotator cuff; Translations: [Other shoulder lesions, left shoulder] Onset: 07-05-2021 02-03-2022 Episodic Other connective tissue disease (20 sources) Pain of left lower leg; Translations: [Pain in left lower leg] Onset: 11-04-2022 Resolved: 11-18-2022 11-04-2022 Episodic Other connective tissue disease (20 sources) Swelling of left lower limb; Translations: [Other specified soft tissue disorders] Onset: 04-03-2023 Resolved: 04-15-2023 04-03-2023 Episodic Other diseases of kidney and ureters (20 sources) Renal impairment; Translations: [Disorder of kidney and ureter, unspecified] Onset: 08-06-2023 08-20-2023 Episodic Other diseases of kidney and ureters (2 sources) Other obstructive and reflux uropathy; Translations: [Other obstructive and reflux uropathy] Onset: 01-05-2024 Episodic Other gastrointestinal disorders (20 sources) Constipation; Translations: [Constipation, unspecified] Onset: 08-06-2023 08-20-2023 Episodic Other gastrointestinal disorders (2 sources) Constipation, unspecified; Translations: [Constipation, unspecified] Onset: 08-20-2023 Episodic Other lower respiratory disease (1 source) Interstitial lung disease; Translations: [Other specified interstitial pulmonary diseases] Onset: 04-21-2024 Resolved: 10-13-2024 10-13-2024 Chronic Other lower respiratory disease (20 sources) Chronic cough; Translations: [Chronic cough] Onset: 10-04-2022 Resolved: 01-06-2023 10-04-2022 Episodic Other lower respiratory disease (20 sources) Cough; Translations: [Subacute cough] Onset: 10-04-2022 09-11-2023 Episodic Other lower respiratory disease (20 sources) Hypoxia; Translations: [Hypoxemia] Onset: 10-03-2023 Resolved: 10-13-2024 10-03-2023 Episodic Other non-epithelial cancer of skin (20 sources) Basal cell carcinoma of nose; Translations: [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] Onset: 10-07-2019 02-03-2022 Episodic Other screening for suspected conditions (not mental disorders or infectious disease) (20 sources) Raised prostate specific antigen; Translations: [Elevated prostate specific antigen [PSA]] Onset: 08-08-2016 04-06-2018 Episodic Other skin disorders (20 sources) Sebaceous cyst of skin; Translations: [Sebaceous cyst] Onset: 12-05-2021 02-03-2022 Episodic Other upper respiratory infections (20 sources) Viral upper respiratory tract infection; Translations: [Acute upper respiratory infection, unspecified] Onset: 04-11-2022 Resolved: 09-11-2023 04-19-2022 Episodic Phlebitis; thrombophlebitis and thromboembolism (20 sources) Acute deep venous thrombosis of popliteal vein of left leg; Translations: [Acute embolism and thrombosis of left popliteal vein] Onset: 11-18-2022 Resolved: 10-13-2024 11-18-2022 Episodic Residual codes; unclassified (20 sources) Bilateral lower limb edema; Translations: [Localized edema] Onset: 04-03-2023 Resolved: 10-13-2024 04-03-2023 Episodic Residual codes; unclassified (2 sources) Immunization not carried out because of patient refusal; Translations: [Immunization not carried out because of patient refusal] Onset: 04-12-2024 Episodic Skin and subcutaneous tissue infections (20 sources) Cellulitis of left lower limb; Translations: [Cellulitis of left lower limb] Onset: 11-04-2022 Resolved: 11-28-2022 11-04-2022 Episodic Spondylosis; intervertebral disc disorders; other back problems (20 sources) Spinal stenosis of lumbar region; Translations: [Spinal stenosis, lumbar region with neurogenic claudication] Onset: 07-31-2023 Resolved: 09-11-2023 06-18-2023 Episodic Urinary tract infections (4 sources) Acute cystitis; Translations: [Acute cystitis without hematuria] Onset: 01-28-2024 01-28-2024 Episodic Results Test Name Value Interpretation Reference Range Facility 37on 10-13-2024 37 Please follow up wit h the ENT for your congestion of your sinuses. [facility] Office Visiton 10-13-2024 Follow-up visit [id number] Ciro Sales 1935 M Date Provider Department Center 10/13/2024 [id number] [facility] Family History Problem Relation Age of Onset Heart disease Mother Cancer Father Family Status - Relation Status Age at Mother Father Level of Service:13175 [place] OFFICE/OUTPATIENT ESTABLISHED MOD MDM 30 MIN Reason for Visit and Comments: Medication Check [[id number]] Med Refill [795002] Other [0] - Wants refill on oxybutynin-advised patient it may have to come from urology [facility] Progress Noteon 10-13-2024 Progress Note Controlled. Blood pressure 139/69. Continue valsartan 40 mg daily Normal [facility] Progress Note Has been stable. Las t hemoglobin A1c Lab Results Component Value Date HGBA1C 6.2 (H) 04/12/2024 Continue low-carb diet, avoid concentrated sweets Normal [facility] Progress Note Symptoms poorly controlled, continue current medications and follow-up with ENT [facility] Progress Note Symptoms well-controlled continue increased fiber and senna if needed [facility] Progress Note Controlled. Continue rosuvastatin 5 mg daily. Continue low-fat low-cholesterol diet. Normal [facility] Progress Note Continue Nasonex, follow-up with ENT [facility] Progress Note Denies any chest [place] n or shortness of breath. Continue Eliquis. Normal [facility] Progress Note Stable, continue oxybutynin XL. Advised patient that if he has any difficulty urinating that he should stop the medication as he does have a history of urinary retention [facility] Progress Note Has been stable. Lizbeth ck BMP. Normal [facility] Progress Note 10/13/2024 Ciro Sales (: 1935) is a 89 y.o. male , Established patient, here for evaluation of the following chief complaint(s): Medication Check, Med Refill, and Other (Wants refill on oxybutynin-advised patient it may have to come from urology) ASSESSMENT/PLAN: 1. Mixed hyperlipidemia Assessment & Plan: Controlled. Continue rosuvastatin 5 mg daily. Continue low-fat low-cholesterol diet. 2. Stage 3a chronic kidney disease (HCC) Assessment & Plan: Has been stable. Check BMP. Orders: - Basic metabolic panel 3. Other pulmonary embolism without acute cor pulmonale, unspecified chronicity (HCC) Assessment & Plan: Denies any chest pain or shortness of breath. Continue Eliquis. Orders: - rivaroxaban (Xarelto) 20 MG tablet; Take 1 tablet (20 mg) by mouth daily. Take with food., Starting 10/13/2024, Normal 4. Sinus congestion Assessment & Plan: Continues to have sinus congestion. Continue Nasonex and fexofenadine. Recommend following up with ENT for further evaluation and treatment. 5. Prediabetes Assessment & Plan: Has been stable. Last hemoglobin A1c Lab Results Component Value Date HGBA1C 6.2 (H) 04/12/2024 Continue low-carb diet, avoid concentrated sweets 6. Allergic rhinitis, unspecified seasonality, unspecified trigger Assessment & Plan: Symptoms poorly controlled, continue current medications and follow-up with ENT 7. Essential hypertension, benign - valsartan (Diovan) 40 MG tablet; Take 1 tablet (40 mg) by mouth daily., Starting Fri10/13/2024, Until Fri04/11/2025, Normal 8. OAB (overactive bladder) Assessment & Plan: Stable, continue oxybutynin XL. Advised patient that if he has any difficulty urinating that he should stop the medication as he does have a history of urinary retention Orders: - oxybutynin XL (Ditropan-XL) 10 MG 24 hr tablet; Take 1 tablet (10 mg) by mouth daily., Starting Fri10/13/2024, Normal 9. Essential (primary) hypertension Assessment & Plan: Controlled. Blood pressure 139/69. Continue valsartan 40 mg daily 10. Slow transit constipation Assessment & Plan: Symptoms well-controlled continue increased fiber and senna if needed 11. Chronic rhinitis Assessment & Plan: Continue Nasonex, follow-up with ENT Follow up for with primary care provider as scheduled. SUBJECTIVE/OBJECTIVE: ALFREDA - Ciro Sales (: 1935) is a 89 y.o. male , Established patient, here for the evaluation of the following chief complaint(s): Medication Check, Med Refill, and Other (Wants refill on oxybutynin-advised patient it may have to come from urology) Patient presents for med check and to follow-up with sinus congestion and allergic rhinitis. Was seen last week and was changed over from Flonase to Nasonex. He has had a chronic issue with his sinuses and was last seen by ENT last year sometime. Said he had allergy testing done and he was allergic to dust but nothing else. Denies any fever or chills. Thinks that it might be slightly better since last week. Hypertension-is taking the valsartan daily denies any adverse effects of the medication. His blood pressure initially was elevated we will recheck it prior to him leaving today. Hyperlipidemia-is taking rosuvastatin daily, his last lipid panel was good Overactive bladder-is requesting a refill of oxybutynin, reports he has been on this for several years and it helps a lot with his nighttime urination. 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 Reports he has been doing well and feels like he is emptying his bladder fine. 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 Denies any signs or symptoms of bleeding. Current Medications[1] Review of Systems Constitutional: Negative. HENT: Positive for congestion, postnasal drip and sinus pressure. Negative for facial swelling and sinus pain. Respiratory: Negative. Cardiovascular: Negative. Negative for chest pain. Gastrointestinal: Negative. Senna helps Genitourinary: Negative for difficulty urinating. Reports overactive and would like refill of oxybutin Neurological: Positive for tremors (head). Negative for dizziness, light-headedness and headaches. Vitals: 10/13/24 1032 10/13/24 1119 BP: (!) 149/72 139/69 Pulse: 68 59 Resp: 24 Temp: 37.4 ?C (99.3 ?F) TempSrc: Infrared SpO2: 91% Weight: 213 lb (96.6 kg) Physical Exam Vitals reviewed. Constitutional: General: He is not in acute distress. Appearance: Normal appearance. He is not ill-appearing. HENT: Head: Normocephalic and atraumatic. Right Ear: Tympanic membrane normal. Left Ear: Tympanic membrane normal. Ears: Comments: Hearing aids Nose: No congestion or rhinorrhea. Comments: No significant nasal edema noted. Mouth/Throat: Mouth: Mucous membranes are moist. Pharynx: Oropharynx is clear. No posterior oropharyngeal erythema. E (more content not included)... [facility] 36on 09-29-2024 36 Noted. Will see as scheduled. [facility] Office Visiton 09-29-2024 Follow-up visit [id number] Ciro Sales 1935 M Date Provider Department Center 09/29/2024 [id number] RODRIGUEZ [facility] Family History Problem Relation Age of Onset Heart disease Mother Cancer Father Family Status - Relation Status Age at Mother Father Level of Service:41297 [place] OFFICE/OUTPATIENT ESTABLISHED LOW [facility] 20 MIN Reason for Visit and Comments: Sinusitis [[id number]] - Patient has complaints of sinus pressure, headache, nasal drips that comes and goes. Patient reports he has had these symptoms for the past couple months [facility] Progress Noteon 09-29-2024 Progress Note 09/29/2024 Ciro Sales (: 1935) is a 89 y.o. male , Established patient, here for evaluation of the following chief complaint(s): Sinusitis (Patient has complaints of sinus pressure, headache, nasal drips that comes and goes. Patient reports he has had these symptoms for the past couple months) I obtained verbal consent from the patient and/or patient?s guardian to use ambient listening technology during this encounter before the ambient technology was engaged. Assessment/Plan 1. Allergic rhinitis, unspecified seasonality, unspecified trigger - fexofenadine (Radha) 180 MG tablet; Take 1 tablet (180 mg) by mouth Daily as needed (allergies)., Starting 09/29/2024, Normal - mometasone (Nasonex) 50 MCG/ACT nasal spray; Administer 2 sprays into each nostril daily., Starting 09/29/2024, Normal - chronic, poorly controlled - Patient experiencing sinus pressure, occasional nasal drainage, and eye irritation - Pale and swollen nasal passages consistent with chronic allergies - Provided reassurance of negative exam findings that would support signs of a bacterial infection - Discontinue current allergy medications - Prescribed Nasonex nasal spray to replace Flonase - Prescribed Radha to replace Loratadine - Follow up with Ashly on 10/13/2024 to assess effectiveness of new regimen I performed the above service AI scribed on my behalf, and I have reviewed and confirmed the accuracy and completeness of the medical documentation. Follow up in 2 weeks (on 10/13/2024) for Next scheduled follow-up. Subjective History of Present Illness Ciro Sales, an 89-year-old male, presents for a same-day appointment with complaints of head pain and sinus pressure that have been ongoing for the past few months. He reports occasional nasal drainage, but not today. He has been using [id number] mucus relief medication and Flonase nasal spray. The patient mentions feeling drowsy and sleeping a lot. See ROS for additional information. Review of Systems Constitutional: Negative for chills and fever. HENT: Positive for congestion, rhinorrhea, sinus pressure and sinus pain. Negative for ear discharge, ear pain and sore throat. Respiratory: Negative for cough, chest tightness, shortness of breath and wheezing. Cardiovascular: Negative for chest pain. Objective Vitals: 09/29/24 1102 09/29/24 1110 BP: (!) 169/89 139/82 Pulse: 72 SpO2: 95% Weight: 211 lb (95.7 kg) Height: 5' 10 (1.778 m) Body mass index is 30.28 kg/m?. Physical Exam Constitutional: General: He is not in acute distress. Appearance: He is not ill-appearing or diaphoretic. HENT: Head: Normocephalic and atraumatic. Right Ear: Tympanic membrane, ear canal and external ear normal. Left Ear: Tympanic membrane, ear canal and external ear normal. Nose: Mucosal edema, congestion and rhinorrhea present. Rhinorrhea is clear. Right Turbinates: Swollen and pale. Left Turbinates: Swollen and pale. Mouth/Throat: Lips: [place]. Mouth: Mucous membranes are moist. Pharynx: Oropharynx is clear. Postnasal drip present. No pharyngeal swelling, oropharyngeal exudate or posterior oropharyngeal erythema. Tonsils: No tonsillar exudate or tonsillar abscesses. Pulmonary: Effort: Pulmonary effort is normal. Breath sounds: Normal breath sounds. Musculoskeletal: Cervical back: Neck supple. Lymphadenopathy: Head: Right side of head: No tonsillar adenopathy. Left side of head: No tonsillar adenopathy. Cervical: No cervical adenopathy. Skin: General: Skin is warm and dry. Coloration: Skin is not pale. Findings: No erythema or rash. Neurological: Mental Status: He is alert and oriented to person, place, and time. Psychiatric: Mood and Affect: Mood normal. Behavior: Behavior normal. Thought Content: Thought content normal. Judgment: Judgment normal. Data Reviewed Results Blood pressure: 139/82 An electronic signature was used to authenticate this note. KALLIE Vallecillo CNP 09/29/2024 11:57 AM Normal [facility] 36on 09-28-2024 36 S: Patient spoke wit h CAC nurse regarding URI/ sinus infection B: Onset of symptoms/concern, greater than a month Last OV 04/12/25 A: C/O severe headache, eye and facial pressure, and intermittent clear nasal drainage for greater than a monht Denies any fever, chest pain or shortness of breath, or facial redness or swelling. Has not checked for Covid. Using OTC cold, unknown name. R: Appointment scheduled for first available 09/29/24 at 11 am with June Rodriguez CNP. Declined POD or UCC. [facility] Advised to wear mask to appointment, arrive 15 mins prior, bring insurance card, ID and copayment. Patient instructed to call back with new or worsening symptoms. Encouraged to hydrate, use saline nasal wash and OTC pain relief. Patient understands care advice. Reason for Disposition Severe headache Protocols used: Sinus Pain [facility] 09-[facility]24 36 Okay, thank you [facility] 36 S: Patient spoke wit h CAC nurse regarding sinus congestion/headache B: Onset of symptoms/concern 2-3 weeks A: Patient c/o headache 8/10, sinus pressure, eye pressure/forehead. Patient reports he is taking an over the counter sinus PE for congestion. CAC nurse advised checking with his pharmacist before continuing to take that medication as it might make his blood pressure higher and they might recommend something different. Denies redness, swelling, fever. R: CAC nurse unable to schedule at PCP office patient declined virtual or POD appointments. CAC nurse gave home care advise and advised UC eval. Patient declined UC eval. Reports he will call the office back on Friday. CAC nurse stressed importance of calling back if he develops fever, redness, swelling, pain not relieved 2 hrs after taking tylenol or any new or worsening symptoms. Patient verbalized understanding, Message sent to the office for review. Reason for Disposition Patient wants to be seen Protocols used: Face [id number] [place] [address]on 07-23-2024 36 Ok.? [place] [address] Message released to patient as written. Patient's further questions if applicable: Pt spoke to his insurance and they stated that the 90 day supply is covered. Pt picked up a 30 day supply yesterday. Were all questions from office addressed or relayed to the patient from encounter: Yes [place] [address] Yes, there isn't an alternative for him. Not sure why such a difference in cost? Maybe Ludivina Wright has input regarding? . [address] 07-22-2024 36 Name of caller: Kirill wilkes Contact phone number: [phone] Relationship to Patient: patient Provider: Dr. Damian Practice: [facility] Chief Complaint/Reason for Call: The patient is calling in regards to the refill of his medication called rivaroxaban (Xarelto) 20 MG tablet. The patient states when he got the medication filled time it was $119.00 for 90 days. Today is Daughter stopped to warp picker the medication and it was $195.00 for 30 days. The patient is asking if there is a different cheaper medication he can get in place of the Xarelto. The patient states he doesn't want to be on the blood thinning medication that has to be monitored. Please advise. Best time of day caller can be reached: Any Patient advised that office/PCP has 24-48 business hours to return their call: No [address] 05-24-2024 36 Reviewed chart. Refi ll appropriate. RX sent. [place] [address] Ordering provider: Howard Damian Date of last office visit: 04/12/24 Date of next office visit: 10/13/24 Updated/Validated preferred pharmacy: Yes Patient instructed to contact the pharmacy prior to picking up the medication: Yes (1) Medication name: valsartan (Diovan) tablet 40 mg Medication dosage: 40 mg Monthly quantity needed: 30 How many day supply requestin days Medication route: oral (PO) Medication administration time(s): daily If taking medication PRN, reason for taking medication: N/A If this is a controlled substance do you receive this or any other controlled medication from any other doctor or facility: No Date of last refill (see medication tab): 01/06/24 (2) Medication name: pantoprazole (ProtoNix) EC tablet 40 mg Medication dosage: 40 mg Monthly quantity needed: 30 How many day supply requestin days Medication route: oral (PO) Medication administration time(s): daily If taking medication PRN, reason for taking medication: N/A If this is a controlled substance do you receive this or any other controlled medication from any other doctor or facility: No Date of last refill (see medication tab): 01/06/24 I [facility] Progress Noteon 04-30-2024 Progress Note EMR reviewed. The patient had a Medicare annual wellness visit with PCP on 04/12/24: ssessment/Plan : Problem List Items Addressed This Visit BPH with obstruction/lower urinary tract symptoms Stable, beginning to urinate better he is seeing urology for this. Stage 3a chronic kidney disease (HCC) Stable Benign head tremor Stable, he is currently on no medication. Essential hypertension, benign Controlled, currently off of all of his blood pressure medications. Hyperlipidemia Controlled, off of all of his cholesterol medicine. Continue low-fat low-cholesterol diet. Relevant Orders Lipid panel Prediabetes Stable, will get lab work today Relevant Orders Comprehensive metabolic panel Hemoglobin A1c Vitals: BP 135/80 Pulse 94 Ht 1.778 m (5' 10) Wt 91.7 kg (202 lb 3.2 oz) SpO2 91% BMI 29.01 kg/m? BSA 2.13 m? PMH: SPINAL STENOSIS, HTN, PE, CKD3, URINARY RETENTION, PREDIABETES, ANEMIA, HYPERLIPIDEMIA He still has a suprapubic catheter. He is urinating on his own. He stated he gets up every 2 hours at night to urinate. He has an appt. with Urology next week on 05/06/24. He is going to talk with the doctor about prescribing a medication for his frequent urination. He stated he still has a dry cough since his surgery 2 weeks ago. CM suggested a humidifier and lozenges. He sated he has been losing some weight-current weight 198 pounds. Stated with his age he doesn't eat as much anymore. He stated his is home from Rehab. She had surgery to remove a brain tumor. He stated he hasn't driven since his back surgery in July. He wants to resume driving. CM suggested he talk with his doctors and his family about this to make sure he is safe when driving. The patient denies any current needs. CM gave the patient her phone number in case he has an questions. CM will follow-up one more time with the patient in a few weeks. Scheduled next outreach. [facility] 36on 04-15-2024 36 Noted. Agree with disposition. [facility] 36 S: Patient spoke sammie brito [facility] nurse regarding constipation B: Onset of symptoms/concern 04/08/24 A: States they have not had regular bowel movement since 04/08/24. States they have had small bowel movements. States they are taking stool softeners daily and have tried Miralax. Denies rectal pain or fullness, denies bloated or distended abdomen, denies abdominal pain, denies nausea or vomiting, denies chest pain or shortness of breath. R: Home care advise to increase hydration with 6-8 cups water per day, add warm prune juice and Milk of Magnesia per package directions. Patient understands care advice. No further needs at this time. Patient instructed to call back with new or worsening symptoms. Reason for Disposition MILD constipation Protocols used: [id number] [facility] 36on 04-13-2024 36 Rx sent, order signed [facility] 36 Spoke with patients . Agreeable to send into pharmacy. Medications and labs pended. Scheduled in 4 weeks for lab recheck. Also sent [employer] message for both patient and to reference back to. [facility] 36 ----- Message from Hermann Damian MD sent at 04/13/2024 5:20 AM EST ----- Blood sugar is good, chemistry is normal except slightly decreased kidney function which is stable. A1c is good at 6.2. Cholesterol total is borderline, good is very good, bad is a little high at 129, recommend low-dose rosuvastatin 5 mg and continue very strict low-fat low-cholesterol diet and recheck in 4 weeks. [facility] 36on 04-12-2024 36 Prescription Request : Sent to [facility] 04/07/24 90 and 1 refill Call pt and see if he can warp picker there or does he need to have it resent to [facility]? Pt asking for it to be resent to [facility] - called and lm to cancel script at [facility] 37on 04-12-2024 37 Personalized Preventative Plan for Ciro Sales - 04/12/2024 Medicare offers a range of preventative health benefits. Some of the tests and screenings are paid in full while others may be subject to a deductible, co-insurance, and / or copay. Some of these benefits include a comprehensive review of your medical history including lifestyle, illnesses that may run in your family, and various assessments and screenings as appropriate. After reviewing your medical record and screening and assessments performed today, your provider may have ordered immunizations, labs, imaging, and / or referrals for you. A list of these orders (if applicable) as well as your Preventative Care list are included within your After Visit Summary for your review. Other Preventative Recommendations: A preventive eye exam by an weatherization specialist is recommended every 1-2 years to screen for glaucoma, cataracts, macular degeneration, and other eye disorders. A preventive dental visit is recommended every 6 months. Try to get at least 150 minutes of exercise per week or 10,000 steps per day on a pedometer. You need 1200-1500mg of calcium and [id number] international units of vitamin D per day. It is possible to meet your calcium requirement with diet alone, but a vitamin D supplement is usually necessary to meet this goal. When exposed to the sun, use a sunscreen that protects against both UVA and UVB radiation with an SPF of 30 or greater. Reapply every 2-3 hours or after sweating, drying off with a towel, or swimming. Always wear a seat belt when traveling in a car. Always wear a helmet when riding a bicycle or a motorcycle [facility] Office Visiton 04-12-2024 Follow-up visit [id number] Ciro Sales 1935 M Date Provider Department Center 04/12/2024 27230[facility]N [facility] Family History Problem Relation Age of Onset Heart disease Mother Cancer Father Family Status - Relation Status Age at Mother Father Level of Service:G0439 [place] PPPS, SUBSEQ VISIT Reason for Visit and Comments: Medicare Annual Wellness Visit Subsequent [297] Blood Work [066411] Health Maintenance [872] - Dermatology referral- refuse Flu vaccine- refuse 3rd covid vaccine- not done Orders [749] - Asking for cough syrup Normal [facility] Progress Noteon 04-12-2024 Progress Note Controlled, off of a ll of his cholesterol medicine. Continue low-fat low-cholesterol diet. Normal [facility] Progress Note Stable, will get lab work today Normal [facility] Progress Note Stable Normal [facility] Progress Note Stable, beginning to urinate better he is seeing urology for this. Normal [facility] Progress Note Controlled, currentl y off of all of his blood pressure medications. Normal [facility] Progress Note Stable, he is angie kumar on no medication. Normal [facility] Progress Note Patient verified by last name and date of . Normal [facility] Progress Note She is [facility] [address] [facility] [address] [facility] [address] Dept: [phone] Dept Chief Complaint: Ciro Sales is an 89 y.o. male here for an annual wellness visit. Assessment/Plan : Problem List Items Addressed This Visit BPH with obstruction/lower urinary tract symptoms Stable, beginning to urinate better he is seeing urology for this. Stage 3a chronic kidney disease (HCC) Stable Benign head tremor Stable, he is currently on no medication. Essential hypertension, benign Controlled, currently off of all of his blood pressure medications. Hyperlipidemia Controlled, off of all of his cholesterol medicine. Continue low-fat low-cholesterol diet. Relevant Orders Lipid panel Prediabetes Stable, will get lab work today Relevant Orders Comprehensive metabolic panel Hemoglobin A1c Other Visit Diagnoses Routine general medical examination at health care facility - Primary Influenza vaccine refused I have reviewed and reconciled the medication list with the patient today. Current Outpatient Medications Medication Sig Dispense Refill albuterol (2.5 MG/3ML) 0.083% nebulizer solution Take 3 mL (2.5 mg) by nebulization every 6 hours as needed for wheezing. 150 mL 0 ASCORBIC ACID PO Take 500 mg by mouth before bedtime. Calcium Citrate-Vitamin D (CALCIUM CITRATE + PO) Take 600 mg by mouth before bedtime. CHOLECALCIFEROL PO Take 125 mcg by mouth before bedtime. ciclopirox (Loprox) 0.77 % cream Apply topically 2 times daily x4 weeks to affected toenails 90 g 0 ciprofloxacin (Cipro) 500 MG tablet Take 500 mg by mouth 2 times daily. famotidine (Pepcid) 20 MG tablet Take by mouth every evening. fluticasone (Flonase) 50 MCG/ACT nasal spray Administer 2 sprays into each nostril daily. Shake gently. Before first use, prime pump. After use, clean tip and replace cap. 16 g 5 Fluticasone-Salmeterol 500-50 MCG/ACT aerosol powder INHALE 1 DOSE BY MOUTH TWICE DAILY DIRECTED Multiple Vitamins-Minerals (CENTRUM SILVER 50+MEN PO) Take by mouth Nightly. NON FORMULARY 2 times daily as needed. Unk eye drop pantoprazole (ProtoNix) 40 MG EC tablet Take 40 mg by mouth daily. polyethylene glycol, PEG, 3350 (MiraLax) 17 GM/SCOOP powder Take 17 g by mouth daily. 850 g 3 senna-docusate sodium (Senokot-S) 8.6-50 MG tablet Take 1 tablet by mouth Daily as needed for constipation (if no bowel movement in 3 days). 30 tablet 1 rivaroxaban (Xarelto) 20 MG tablet Take 1 tablet (20 mg) by mouth daily. Take with food. 90 tablet 1 valsartan (Diovan) 40 MG tablet Take 1 tablet (40 mg) by mouth daily. 90 tablet 1 No current facility-administered medications for this visit. Also reviewed during this visit: The following health maintenance schedule was reviewed with the patient and provided in printed form in the after visit summary: Health Maintenance Topic Date Due Depression Screening 04/10/2024 RSV Immunization for Adults (1 - 1-dose 75+ series) 04/15/2024 (Originally 2011) Influenza Vaccine (1) 10/18/2024 (Originally 12/21/2023) Derm Melanoma Skin Check 04/12/2025 (Originally 08/26/2023) COVID-19 Vaccine (3 - 2023- season) 2025 (Originally 12/21/2023) DTaP/Tdap/Td Vaccines (2 - Td or Tdap) 04/06/2028 Lipid Panel 04/10/2028 Medicare Advantage Annual Wellness Visit Completed Hepatitis B Vaccines Completed Pneumococcal Vaccine: 50+ Years Completed Zoster Vaccines Completed RSV Immunization under 20 Months Aged Out HIB Vaccines Aged Out IPV Vaccines Aged Out Hepatitis A Vaccines Aged Out Meningococcal Vaccine Aged Out Rotavirus Vaccines Aged Out HPV Vaccines Aged Out List of current healthcare providers: Patient Care Team: Hermann Damian MD as PCP - General Ciro Frausto MD as Surgeon (Urology) Sana Marcos DO as Surgeon (Urology) Dana Plummer, RN as Water Purifier Operator (Rolling Mill Plugger Manager) Orders Placed This Encounter Procedures Lipid panel Standing Status: Future Number of Occurrences: 1 Standing Expiration Date: 04/09/2025 Comprehensive metabolic panel Standing Status: Future Number of Occurrences: 1 Standing Expiration Date: 04/09/2025 Hemoglobin A1c Standing Status: Future Number of Occurrences: 1 Standing Expiration Date: 04/09/2025 Review of Systems Constitutional: Negative for activity change, appetite change, chills, fever and unexpected weight change. HENT: Negative for ear pain and sore throat. Respiratory: Negative for shortness of breath. Cardiovascular: Negative for chest pain and palpitations. Gastrointestinal: Positive for constipation. Negative for abdominal pain, blood in stool and diarrhea. Genitourinary: Negative for dysuria, frequency, hematuria and urgency. Musculoskeletal: Negative for arthralgias and back pain. Skin: Negative. Neurological: Negative for weakness and numbness. Psychiatric/Behavioral: Negativ (more content not included)... Normal [facility] 36on 04-09-2024 36 Okay, thank you Normal [facility] 36 S Patient calling urinary issues B Recent surgery discharged yesterday A Spine Surgery [facility] discharged yesterday States he had called Dr Waters - neurology at [phone] but they are closed today. Patient calling with what sounds like bladder spasm. States it feels like muscle spasm in penis. Causing frequency and urgency. Incontinent at night. Some discomfort. No burning. Just pain with spasms. No visible bleeding.. Is asking for rx from Dr Damian for this. Is also asking if pcp has or could request recent blood work from [facility] for upcoming appt Friday. Reports he did have catheter in the hospital R Declines appt today. Has appt with Dr Damian Friday, will discuss then. Advised he could be experiencing irritation for catheter and that he could try OTC to see if it would help with his symptoms. Home care given. Advised calling back if anything changes or worsens. Initially advised trying AZO but then told patient to not take that until he sees pcp due to his kidney function. Patient voiced understanding. Will have pcp address Friday and will call back with concerns. Reason for Disposition Can't control passage of urine (i.e., urinary incontinence) and new-onset (< 2 weeks) or getting worse All other males with painful urination, or patient wants to be seen Protocols used: Urinary Jrqpirpl-[id number]-QA, Urination Pain - ADULT-[place] Normal [facility] Basic Metabolic Profile (BMP )on 04-09-2024 BUN Normal 7-18 [facility] Comment on above: Result Comment: Canc elled via OM: Order cancelled - Patient discharged Performed By: #### L 500.2500, L100.0100 #### [facility] [address] [place], [address] BUN/CRE Normal -20 [facility] Comment on above: Result Comment: Canc elled via OM: Order cancelled - Patient discharged Performed By: #### L 500.2500, L100.0100 #### [facility] [address] [place], [address] CA,Total Normal 8.5-10.1 [facility] Comment on above: Result Comment: Canc elled via OM: Order cancelled - Patient discharged Performed By: #### L 500.2500, L100.0100 #### [facility] [address] [place], [address] CL Normal 98-107 [facility] Comment on above: Result Comment: Canc elled via OM: Order cancelled - Patient discharged Performed By: #### L 500.2500, L100.0100 #### [facility] [address] [place], [address] CO2 Normal 21.0-32.0 [facility] Comment on above: Result Comment: Canc elled via OM: Order cancelled - Patient discharged Performed By: #### L 500.2500, L100.0100 #### [facility] [address] [place], [address] CREAT,SERUM Normal 0.70-1.30 [facility] Comment on above: Result Comment: Canc elled via OM: Order cancelled - Patient discharged Performed By: #### L 500.2500, L100.0100 #### [facility] [address] [place], [address] EST GFR Normal >60 [facility] Comment on above: Result Comment: Canc elled via OM: Order cancelled - Patient discharged Performed By: #### L 500.2500, L100.0100 #### [facility] [address] [place], [address] EST GFR - AA Normal >60 [facility] Comment on above: Result Comment: Canc elled via OM: Order cancelled - Patient discharged Performed By: #### L 500.2500, L100.0100 #### [facility] [address] [place], [address] GAP Normal 5-15 [facility] Comment on above: Result Comment: Canc elled via OM: Order cancelled - Patient discharged Performed By: #### L 500.2500, L100.0100 #### [facility] [address] [place], [address] GLU Normal 74-106 [facility] Comment on above: Result Comment: Canc elled via OM: Order cancelled - Patient discharged Performed By: #### L 500.2500, L100.0100 #### [facility] [address] [place], [address] Potassium Normal 3.5-5.1 [facility] Comment on above: Result Comment: Canc elled via OM: Order cancelled - Patient discharged Performed By: #### L 500.2500, L100.0100 #### [facility] [address] [place], [address] Basic Metabolic Profile (BMP) Normal 136-145 [facility] Comment on above: Result Comment: Canc elled via OM: Order cancelled - Patient discharged Performed By: #### L 500.2500, L100.0100 #### [facility] [address] [place], [address] CBC W/Diff, Automatedon 12-2 0-4 Absolute Neut Normal 2.0-7.7 [facility] Comment on above: Result Comment: Canc elled via OM: Order cancelled - Patient discharged Performed By: #### L 500.2500, L100.0100 #### [facility] [address] [place], [address] HCT Normal 40-54 [facility] Comment on above: Result Comment: Canc elled via OM: Order cancelled - Patient discharged Performed By: #### L 500.2500, L100.0100 #### [facility] [address] [place], [address] HGB Normal 13.0-16.5 [facility] Comment on above: Result Comment: Canc elled via OM: Order cancelled - Patient discharged Performed By: #### L 500.2500, L100.0100 #### [facility] [address] [place], [address] MCH Normal 27.0-32.0 [facility] Comment on above: Result Comment: Canc elled via OM: Order cancelled - Patient discharged Performed By: #### L 500.2500, L100.0100 #### [facility] [address] [place], [address] MCHC Normal 32-36 [facility] Comment on above: Result Comment: Canc elled via OM: Order cancelled - Patient discharged Performed By: #### L 500.2500, L100.0100 #### [facility] [address] [place], [address] MCV Normal 80-94 [facility] Comment on above: Result Comment: Canc elled via OM: Order cancelled - Patient discharged Performed By: #### L 500.2500, L100.0100 #### [facility] [address] [place], [address] NEUT% Normal 47-70 [facility] Comment on above: Result Comment: Canc elled via OM: Order cancelled - Patient discharged Performed By: #### L 500.2500, L100.0100 #### [facility] [address] [place], [address] PLT Normal 150-450 [facility] Comment on above: Result Comment: Canc elled via OM: Order cancelled - Patient discharged Performed By: #### L 500.2500, L100.0100 #### [facility] [address] [place], [address] RBC Normal 4.6-6.2 [facility] Comment on above: Result Comment: Canc elled via OM: Order cancelled - Patient discharged Performed By: #### L 500.2500, L100.0100 #### [facility] [address] [place], [address] RDW CV Normal 11.6-14.6 [facility] Comment on above: Result Comment: Canc elled via OM: Order cancelled - Patient discharged Performed By: #### L 500.2500, L100.0100 #### [facility] [address] [place], [address] RDW SD Normal 35.1-43.9 [facility] Comment on above: Result Comment: Canc elled via OM: Order cancelled - Patient discharged Performed By: #### L 500.2500, L100.0100 #### [facility] [address] [place], [address] WBC Normal 4.4-11.0 [facility] Comment on above: Result Comment: Canc elled via OM: Order cancelled - Patient discharged Performed By: #### L 500.2500, L100.0100 #### [facility] [address] [place], [address] 36on 04-07-2024 36 Rx sent Normal [facility] 36 Prescription Request : Last medication check: 09/11/23 Last physical exam: 04/10/23 Next scheduled appointment: 04/12/24 Last date of refill on this medication 01/07/24 90 day 1 refill Normal [facility] Basic Metabolic Profile (BMP )on 04-07-2024 BUN/CRE 12.8 RATIO Normal 10-20 [facility] Comment on above: Performed By: #### L 100.0500, L500.2500 #### [facility] [address] [place], [address] CA,Total 9.0 mg/dL Normal 8.5-10.1 [facility] Comment on above: Performed By: #### L 100.0500, L500.2500 #### [facility] [address] [place], [address] Chloride [Moles/Vol] 108 mmol/L High 98-107 [facility] Comment on above: Performed By: #### L 100.0500, L500.2500 #### [facility] [address] [place], [address] CO2 [Moles/Vol] 29.0 mmol/L Normal 21.0-32.0 [facility] Comment on above: Performed By: #### L 100.0500, L500.2500 #### [facility] [address] [place], [address] Creatinine [Mass/Vol] 1.56 mg/dL High 0.70-1.30 [facility] Comment on above: Result Comment: The validity of the calculated GFR GFRAA in patients over 70 years has not been determined. Clinical correlation is essential. Performed By: #### L 100.0500, L500.2500 #### [facility] [address] [place], [address] ECRCL 37.33 ml/min Normal [facility] Comment on above: Performed By: #### L 100.0500, L500.2500 #### [facility] [address] [place], [address] EST GFR - AA 54 mL/min Low >60 [facility] Comment on above: Result Comment: Afri can Azerbaijani GFR Calc Performed By: #### L 100.0500, L500.2500 #### [facility] [address] [place], [address] GAP 2 Low 5-15 [facility] Comment on above: Performed By: #### L 100.0500, L500.2500 #### [facility] [address] [place], [address] GFR/1.73 sq M.predicted among non-blacks MDRD (S/P/Bld) [Vol rate/Area] 45 mL/min/{1.73_m2} Low >60 [facility] Comment on above: Result Comment: Non- GFR Calc Performed By: #### L 100.0500, L500.2500 #### [facility] [address] [place], [address] Glucose [Mass/Vol] 112 mg/dL High 74-106 [facility] Comment on above: Result Comment: Fast ing Glucose result from 100 to 125 mg/dL suggests IMPAIRED HOMEOSTASIS per A.D.A. criteria. Performed By: #### L 100.0500, L500.2500 #### [facility] [address] [place], [address] Potassium [Moles/Vol] 4.4 mmol/L Normal 3.5-5.1 [facility] Comment on above: Performed By: #### L 100.0500, L500.2500 #### [facility] [address] [place], [address] Sodium [Moles/Vol] 140 mmol/L Normal 136-145 [facility] Comment on above: Performed By: #### L 100.0500, L500.2500 #### [facility] [address] [place], [address] Urea nitrogen [Mass/Vol] 20 mg/dL High 7-18 [facility] Comment on above: Performed By: #### L 100.0500, L500.2500 #### [facility] [address] [place], [address] CBC-Complete Blood Cnt No Di ffon 04-07-2024 Erythrocyte distribution width (RBC) [Ratio] 14.1 % Normal 11.6-14.6 [facility] Comment on above: Performed By: #### L 100.0500, L500.2500 #### [facility] [address] [place], [address] Hematocrit (Bld) [Volume fraction] 39.4 % Low 40-54 [facility] Comment on above: Performed By: #### L 100.0500, L500.2500 #### [facility] [address] [place], [address] Hemoglobin (Bld) [Mass/Vol] 12.3 g/dL Low 13.0-16.5 [facility] Comment on above: Performed By: #### L 100.0500, L500.2500 #### [facility] [address] [place], [address] MCH (RBC) [Entitic mass] 26.8 pg Low 27.0-32.0 [facility] Comment on above: Performed By: #### L 100.0500, L500.2500 #### [facility] [address] [place], [address] MCHC (RBC) [Mass/Vol] 31.2 g/dL Low 32-36 [facility] Comment on above: Performed By: #### L 100.0500, L500.2500 #### [facility] [address] [place], [address] MCV (RBC) [Entitic vol] 85.8 fL Normal 80-94 [facility] Comment on above: Performed By: #### L 100.0500, L500.2500 #### [facility] [address] [place], [address] Platelet mean volume (Bld) [Entitic vol] 9.8 fL Normal 6.2-12.0 [facility] Comment on above: Performed By: #### L 100.0500, L500.2500 #### [facility] [address] [place], [address] Platelets (Bld) [#/Vol] 217 10*3/uL Normal 150-450 [facility] Comment on above: Performed By: #### L 100.0500, L500.2500 #### [facility] [address] [place], [address] RBC (Bld) [#/Vol] 4.59 10*6/uL Low 4.6-6.[address] [facility] Comment on above: Performed By: #### L 100.0500, L500.2500 #### [facility] [address] [place], [address] RDW SD 43.8 fl Normal 35.1-43.9 [facility] Comment on above: Performed By: #### L 100.0500, L500.2500 #### [facility] [address] [place], [address] WBC (Bld) [#/Vol] 6.0 10*3/uL Normal 4.4-11.0 [facility] Comment on above: Performed By: #### L 100.0500, L500.2500 #### [facility] [address] [place], [address] Discharge Instructionon 03-21 Discharge Instruction [facility] Medical Records Department [address] [place] [address] Instructions for Home/Discharge Instructions 04/07/24 0739 MR#: [id number] Acct: [id number] Name: CIRO SALES Rep #: [id number] : [id number] From: Sina Augustine MD PCP: Dr. Hermann Damian MD Status:REG SDC Discharge Instructions Diet Discharge Diet: No restrictions, Light diet - advance as tolerated and Soft diet DC O2, CPAP, BIPAP needs Additional Home O2 Discharge instructions: No Dressing / Incision Discharge Activity: Return to Normal Activity May shower in (days): 1 Dressing / Incision Catheter: - (SP tube Clamped) Follow Up Care Please Follow Up With: Sina Augustine MD When: call for follow up appt [phone] Test Results: Test results from this visit will be discussed in further detail at your follow-up appointment, if applicable. Discharge Plan Admission Primary Reason for Your Visit: turp Attending Provider: Sina Augustine Primary Care Provider: Hermann Damian Instructions Print Language: Nauruan Discharge Orders/Prescriptions Prescriptions: New ciprofloxacin HCl [Cipro] 500 mg tablet 500 mg PO BID Qty: 14 0RF Continued pantoprazole 40 mg tablet,delayed release (DR/EC) 40 mg PO DAILY polyethylene glycol 3350 17 gram/dose powder 17 g PO DAILY PRN (Reason: constipation) fluticasone propionate 50 mcg/actuation spray,suspension 2 spray INTRANASAL DAILY valsartan 40 mg tablet 40 mg PO DAILY guaifenesin [Mucus Relief ER] 600 mg tablet extended release 12hr 600 mg PO BID PreserVision AREDS-2 250-90-40-1 mg capsule 1 tab PO BID vitamin A 2,400 mcg capsule 2,400 mcg PO DAILY cholecalciferol (vitamin D3) [Vitamin D3] 25 mcg (1,000 unit) capsule 25 mcg PO DAILY multivitamin [Daily Multi-Vitamin] Tablet 1 tab PO DAILY ascorbic acid (vitamin C) [C-500] 500 mg tablet 500 mg PO DAILY calcium citrate-vitamin D3 [Calcium Citrate + D] 315 mg-5 mcg (200 unit) tablet 1 tab PO DAILY fluticasone propion-salmeterol 500-50 mcg/dose blister with device 1 inh INHALATION PRN Patient Comments: INHALE 1 DOSE BY MOUTH TWICE DAILY DIRECTED Held Xarelto 20 mg tablet 20 mg PO DAILY Hold Instructions: Resume on 04/21/24. Patient Comments: STOP 4 DAYS PRIOR TO SURGERY PER DR. AUGUSTINE Discontinued finasteride 5 mg tablet 5 mg PO DAILY Referrals / Follow Up: Hermann Damian MD [Primary Care Provider] - Davide,Sina Mueller MD [Med Staff - Active Staff] - Disposition Disposition (needs filled in before D/C Order can be placed): Home, Self Care 04/07/24 0740 Sina Augustine MD CC: Dr. Hermann Damian MD Signed [facility] MR/POSTOP.ANE 04-07-2024 MR/POSTOP.[facility] Medical Records Department [address] [place] [address] Anesthesia Postop Eval I 04/07/2451 MR#: [id number] Acct: [id number] Name: CIRO SALES Rep #: [id number] : 1935 89 From: Stefany Saenz PCP: Dr. Hermann Damian MD Status:[facility] Y Race: C Location: [place] [address] Anesthesia: Postop Eval I Current Vital Signs Temperature: 98.4 F Pulse Rate: 73 Blood Pressure: 159/89 Respiratory Rate: 18 Pulse Ox: 96 Assessment Airway patent: Yes Spontaneous unlabored respirations: Yes nausea: No Vomiting: No Anesthesia Complication: No Fluid Hydration Crystalloid volume administer (ml): 1,000 Total IV fluid infused: 1,000 Progress Note Anesthesia document: Postop Eval 1 completed: Yes 04/07/2452 Date Stefany Robin Signature: Date CC: Signed [facility] MR/[id number] 04-07-2024 [facility] Medical Records Department [address] [place] [address] Anesthesia Postop Eval II 04/07/24 1058 MR#: [id number] Acct: [id number] Name: CIRO SALES Rep #: [id number] : 1935 89 From: Abhinav Lopez MD PCP: Dr. Hermann Damian MD Status:[facility] Y Race: C Location: [place] [address] Anesthesia Postop Eval I Sum Postop Eval Completion status Anesthesia document: Postop Eval 1 completed: Yes Anesthesia Postop Eval I Summary Anesthesia Postop Eval I Summary: Anesthesia Postop Eval I: Assessment Summary Airway patent Yes 04/07/24 08:51 VAMP CUT OUT WORKER.CSIR Spontaneous unlabored Yes 04/07/24 08:51 VAMP CUT OUT WORKER.CSIR respirations Mental status nausea No 04/07/24 08:51 VAMP CUT OUT WORKER.CSIR Vomiting No 04/07/24 08:51 VAMP CUT OUT WORKER.CSIR Anesthesia Postop Eval I: Fluid Summary Crystalloid volume administer 1,000 04/07/24 08:51 VAMP CUT OUT WORKER.CSIR (ml) Colloids volume administered ( ml) Blood Product volume administered (ml) Total IV fluid infused 1,000 04/07/24 08:51 VAMP CUT OUT WORKER.CSIR Anesthesia Postop Eval I: Summary Notes Anesthesia Complication No 04/07/24 08:51 VAMP CUT OUT WORKER.CSIR Anesthesia Complication Comment: Post-operative progress note Anesthesia: Postop Eval II Evaluation Mental status: Awake Pain Level: 0 nausea: No Vomiting: No 04/07/24 1058 Date Abhinav Lopez MD Cosigner Signature: Date CC: Signed Normal [facility] Operative Reporton 4 Operative Report [facility] Medical Records Department [address] [place] [address] Operative Report 04/07/24 0848 MR#: [id number] Acct: [id number] Name: CIRO SALES Rep #: [id number] : 1935 89 From: Sina Augustine MD PCP: Dr. 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 Post-Operative Diagnosis: The same Surgery/Procedure Performed: Transurethral section of prostate special librarian: No Type of Anesthesia: General RN Documented Start/Stop Times: Operation Date: 04/07/24 07:30 Case Time Into Pre-Op 04/07/24 06:18 Out of Pre-Op 04/07/24 07:27 Procedure Start Time: 07:45 Procedure Stop Time: 08:48 Select all DRAINS/GRAFTS/IMPLANTS that apply: Drains Drain details: Lopez catheter and SP tube Estimated Blood Loss: Minimal le Specimen collected: Yes Description of specimen(s) removed: Prostate tissue Description of surgery: Indication this is an 89-year-old male who developed retention of urine and he underwent a TURP and a Lopez placement and suprapubic catheter placement at outside hospital felt Lopez catheter had been removed but he was still not able to urinate so he been having a chronic suprapubic catheter for last few months. He came in to see me for second opinion as to why he is not able to urinate we did a cystoscopy in the office and I found that on cystoscopy he still had significant obstruction of the prostate channel even though he had a prior TURP just done recently there was still a lot of obstruction near the apex and the sphincter of the prostatic channel and the fact obstruction was so severe that it would sealed in together and was very weak and hard to get through the blockage into the bladder so because of this I recommended that we do a TURP this would be a second TURP first TURP was done by another surgeon and this will be done by myself to resect the residual tissue that is still causing obstruction. Patient was taken back to the operating room after smooth induction of anesthesia went into the urethra with a 26 Nicaraguan continuous-flow resectoscope once I got through the urethra the entire length urethra was clear of any strictures or problems sphincter was identified the verumontanum was identified but then right beyond the verumontanum the there was prostatic hypertrophy and blockage and it had sealed together and there was a tiny opening into the bladder I then pushed through this and then I saw the bladder neck the bladder neck was wide open I then switched over to the medium size loop and started resecting all this obstructive tissue I resected back to the verumontanum I then resected the obstructive tissue in the right side of the prostate obstructive tissue in the left side prostate tissue in the roof and then resected a wide open channel at this point I had no obstructive tissue from the verumontanum into the bladder neck. I did a flow test had a wide open flow the sphincter looked intact but I did have to resect a lot of tissue real close of the sphincter. Ellik that all the chips out of the bladder and we left a suprapubic catheter in place as a safety valve irrigation through the SP tube and out through the Lopez urine was completely clear I cauterized the prostate to control bleeding and is taken back to the PACU in stable condition we will remove the catheter tomorrow for a voiding trial and either go home with an SP tube or be able to urinate his own and he will use the SP tube for voiding trial given the clamp to start retraining his bladder see him in the office in a few weeks to decide whether we remove the SP tube or keep it in place. Surgical Findings: Had a lot of significant obstruction in the prostatic channel even after a prior TURP done by another hospital Complications Complications: No Admit VTE Documentation VTE Present on Admission: No VTE Mechan Device Prophylaxis: SCD's VTE Pharm Prophylaxis ordered?: No 04/07/24 0851 Cosigner Signature (if applicable): CC: Dr. Hermann Damian MD; Dr. Sina Augustine MD Signed Normal [facility] Surgery Specimen Level Nancy 04-07-2024 Surgery Specimen Level IV Patient Age/Sex Location Account Attending Physician LAWRENCECIRO GILMORE 89/M MS3 [id number] Dr. Sina Augustine MD Specimen: [id number] Received: 04/07/24 Status: [facility] [place] Num: [id number] Spec Type: TURP Subm Dr: Dr. Sina Augustine MD HEADER OPERATION: Transurethral resection, prostate PRE-OP DIAGNOSIS: TISSUE SUBMITTED: Prostate tissue MICROSCOPIC DIAGNOSIS Prostate tissue, transurethral resection: Benign nodular hyperplasia, glandular and stromal types. Focal squamous metaplasia. Chronic inflammation. AM. 04/08/2024 MICROSCOPIC DESCRIPTION Slides are reviewed. GROSS DESCRIPTION Received is one container labeled with the patient's name and designated prostate tissue. The specimen consists of multiple irregular fragments of pink-silvestre, rubbery, soft tissue that in aggregate weigh 7.7 gm and measure in aggregate 3.5 x 4.5 x 1.0 cm. The entire specimen is submitted in eight cassettes. . 04/07/2024 TC:3 CPT: 82843 Patient Age/Sex Location Account Attending Physician CIRO SALES 89/M MS3 [id number] Dr. Sina Augustine MD Signed (signature on file) Dr. Nicholas Johnson DO 04/08/24 1459 Normal [facility] Comment on above: Performed By: #### P ABELARDO #### [facility] Laboratory [address] [place], [address] 36on 2024 36 S: The patient is calling the [facility] about sinus symptoms B: Symptoms have been present for a week A: He has a head fullness and headache with drainage. No dyspnea, wheezing or fever. He is having a prostate surgery next week - he has a temporary indwelling catheter. R: He wants seen today because he is concerned that he be better for this surgery. Appointment made, insurance verified and care advise reviewed. Reason for Disposition Patient wants to be seen Protocols used: Sinus Pain or [id number] [facility] Office Visiton 2024 Follow-up visit [id number] Ciro Sales 1935 M Date Provider Department Center 2024 [id number]-GNCZPYASHIRA RODRIGUEZ [facility] Family History Problem Relation Age of Onset Heart disease Mother Cancer Father Family Status - Relation Status Age at Mother Father Level of Service:27282 [place] OFFICE/OUTPATIENT ESTABLISHED LOW MDM 20 MIN Reason for Visit and Comments: URI [115] - States that his nose has been running like crazy, sneezing, watery eyes. States that he has surgery coming up next Friday and wants to get checked out before then. [facility] Progress Noteon 2024 Progress Note 2024 Ciro Sales (: 1935) is a 89 y.o. male , Established patient, here for evaluation of the following chief complaint(s): URI (States that his nose has been running like crazy, sneezing, watery eyes. States that he has surgery coming up next Friday and wants to get checked out before then. ) ASSESSMENT/PLAN: 1. Acute maxillary sinusitis, recurrence not specified - amoxicillin-clavulanate (Augmentin) 875-125 MG tablet; Take 1 tablet by mouth 2 times daily for 10 days., Starting 2024, Until Alyce 04/08/2024, Normal - Saline nasal spray for congestion. - Encouraged increasing oral fluids to keep mucous secretions moist. - Sleep with humidified air. - Discussed signs and symptoms warranting follow up in the office- verbalized understanding. Follow up in 2 weeks (on 04/12/2024) for Next scheduled follow-up. SUBJECTIVE/OBJECTIVE: HPI - Ciro presents today with concerns of sinus congestion with pressure and drainage that has been ongoing for the past week or more. Has taken OTC cough/cold medications without much improvement. Has a cough as well- denies shortness of breath or wheezing. Is worried because he is scheduled for surgery on his indwelling urinary catheter in a week or so and wants to make sure he is okay for the surgery. See ROS for additional information. Review of Systems Constitutional: Negative for chills and fever. HENT: Positive for congestion, rhinorrhea, sinus pressure and sinus pain. Negative for ear discharge, ear pain and sore throat. Respiratory: Positive for cough. Negative for chest tightness, shortness of breath and wheezing. Cardiovascular: Negative for chest pain. Vitals: 03/29/24 1400 BP: 132/84 BP Location: Left arm Patient Position: Sitting Pulse: 81 Temp: 36.6 ?C (97.9 ?F) SpO2: 94% Weight: 205 lb 3.2 oz (93.1 kg) Height: 5' 10 (1.778 m) Body mass index is 29.44 kg/m?. Physical Exam Constitutional: General: He is not in acute distress. Appearance: He is not diaphoretic. HENT: Head: Normocephalic and atraumatic. Right Ear: Tympanic membrane, ear canal and external ear normal. Left Ear: Tympanic membrane, ear canal and external ear normal. Nose: Congestion and rhinorrhea present. Rhinorrhea is purulent. Right Turbinates: Swollen. Left Turbinates: Swollen. Mouth/Throat: Mouth: Mucous membranes are moist. Pharynx: Oropharynx is clear. No oropharyngeal exudate or posterior oropharyngeal erythema. Cardiovascular: Rate and Rhythm: Normal rate and regular rhythm. Heart sounds: Normal heart sounds. No murmur heard. No friction rub. Pulmonary: Effort: Pulmonary effort is normal. Breath sounds: Normal breath sounds. No wheezing, rhonchi or rales. Musculoskeletal: Cervical back: Neck supple. Lymphadenopathy: Cervical: No cervical adenopathy. Skin: General: Skin is warm and dry. Coloration: Skin is not pale. Findings: No erythema. Neurological: Mental Status: He is alert and oriented to person, place, and time. Psychiatric: Mood and Affect: Mood normal. Behavior: Behavior normal. Thought Content: Thought content normal. Judgment: Judgment normal. Data Reviewed Labs: Imaging/Testing: An electronic signature was used to authenticate this note. Yashira Rodriguez APRN - 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 2024 2:43 PM [facility] Progress Noteon 03-10-2024 Progress Note [facility] UROLOGY [address], [address] [facility] [address] Urology Nursing Visit PATIENT NAME: Ciro Sales DATE OF : 1935 TODAY'S DATE: 03/10/2024 Patient presents today for suprapubic catheter change. The patient's identity was verified by name and . Patient complaining of tenderness around stoma and of catheter pulling and rubbing. Light pink skin surrounding stoma site. Existing catheter 10 mL balloon deflated and the 18 romanian BARD catheter was removed without difficulty. Patient prepped and draped in sterile fashion. A new 18 romanian BARD catheter was inserted without difficulty an 10 mL of fluid used to inflate catheter balloon. There noted to be draining cloudy/sediment and straw-yellow output passively into overnight bag. Gauze dressing placed around insertion site and two stat locks to prevent rubbing. Patient tolerated well. Extra overnight bag and stat locks given to patient at this time. Advised patient that it is common to see blood-tinged urine for the first 48 hours after catheter change just from the manipulation. This timeframe can be longer if on blood thinning medications. Advised to call office if catheter not draining in >4 hours during the daytime hours. If catheter not draining and becomes uncomfortable after hours, patient will have to go to the nearest emergency department for evaluation of catheter. [facility] Progress Noteon 02-25-2024 Progress Note EMR reviewed. The patient has had 4 ED encounters over the past few weeks. The most recent one was on 02/01/24 for abdominal pain: HPI Tennille Sales is a 88 y.o. who presents to the emergency department with chief complaint of suprapubic abdominal pain. Patient has a suprapubic catheter in place. Family states that it does not appear to be draining since around 11 AM. Patient is complaining of a pressure sensation in the suprapubic region. Patient states that he has recently started antibiotics for urinary tract infection. Since starting his catheter has clogged 3 previous times. Suprapubic catheter was just placed approximately 2-3 weeks ago. The patient had a post-op appt. 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 Fortunately this was benign but was causing mass effect and pushing on her eye. Tennille initially passed his void trial on 926 however it appears that he was unable to void and thus the suprapubic tube was hooked up to a drainage bag. He has had some intermittent issues with it not draining however this was resolved after hand irrigation, removing some debris and sediment Today is his first suprapubic tube exchange There is granulation tissue on the outside of the suprapubic tract, this is to be expected especially at the beginning when he is still healing Explained need for suprapubic tube, while he is very disappointed that he is not able to have the tube removed we did manage to secure it in a different fashion so that he was able to be slightly more mobile I showed his son how to secure it today as well Vitals: BP 117/66 (BP Location: Right arm, Patient Position: Sitting, BP Cuff Size: Large adult) Pulse 75 Ht 1.778 m (5' 10) Wt 92.5 kg (204 lb) BMI 29.27 kg/m? BSA 2.14 m? Pain Sc 0-No pain PMH: SPINAL STENOSIS, HTN, PE, CKD3, URINARY RETENTION, PREDIABETES, ANEMIA, HYPERLIPIDEMIA Follow-up appts: 03/10/24-Urology The patient stated he hasn't had any difficulty with the suprapubic catheter draining since seeing the Urologist on 02/12/24. He wants to have his suprapubic catheter removed. He stated he has an appt. tomorrow with another Urologist for a second opinion at [facility]. He stated he has an appt. this month with an ENT for a cough. He was prescribed Pantoprazole for acid reflux and they want him to follow-up. The patient stated his is currently in Rehab. She had surgery a few weeks ago for a benign brain tumor. The patient has been visiting his daily. The patient has 4 children who have been transporting the patient. He stated his children are all very helpful. He is still receiving home health services. Skilled nurse is visiting this Friday. The patient stated his daughter just arrived with some donuts and he was wanting to talk with her. plans on following up with the patient in a few weeks to further assess patient's needs. Scheduled next outreach. [facility] 36on 02-16-2024 36 Patient was notified. [facility] 36 Notified. [place] [address] Name of caller: Tennille Contact phone number: [phone] Relationship to Patient: patient Provider: Dr. Damian Practice: [facility] Chief Complaint/Reason for Call: The patient is Is calling back stating he found a Urologist in [place] Dr. Sina Augustine #[phone] that he can get a 2nd opinion regarding getting rid of the urine bag. The patient is asking if the referral can be faxed to fax#[phone]. Please advise. Best time of day caller can be reached: Any Patient advised that office/PCP has 24-48 business hours to return their call: No [place] [address] Name of caller: tennille Contact phone number: [phone] Relationship to Patient: patient Provider: rickie Practice: [facility] Chief Complaint/Reason for Call: Pt is requesting to be referred to another doctor in [facility] who takes his insurance to get a second opinion on the issue he is having with carrying a urine bag around all day every day. Pt states does not want to do that and is wanting a second opinion on what else can be done. Please advise. Best time of day caller can be reached: AM Patient advised that office/PCP has 24-48 business hours to return their call: Yes [facility] 36on 02-12-2024 36 Bella from [facility] called in to let us know she saw the pt today and his spt site is pussy and green, she states that she flushed the cath with no restrictions, but the tubing is gross from nolan, he just got off antibiotics last week from a uti but she suggests an oral antibiotic. She wanted to make sure this was addressed at his appt. [facility] Office Visiton 02-12-2024 Follow-up visit [id number] Ciro Sales 1935 M Date Provider Department Center 02/12/2024 [id number] MARCOS [facility] ACH URO None Family History Problem Relation Age of Onset Heart disease Mother Cancer Father Family Status - Relation Status Age at Mother Father Level of Service:20945 [place] OFFICE/OUTPATIENT ESTABLISHED MOD MDM 30 MIN Reason for Visit and Comments: Post-op [483] - TURP./ Home health nurse think SPT maybe infected [facility] Progress Noteon 02-12-2024 Progress Note Sana Marcos DO Urology Office Visit Established patient [facility] UROLOGY - [address] [facility] [address] Dept: [phone] Dept Loc: [phone] PATIENT NAME: Ciro Sales DATE OF : 1935 REFERRING PROVIDER: No ref. provider found PCP: Hermann Damian MD DATE OF VISIT: 02/12/24 CHIEF COMPLAINT: Chief Complaint Patient presents with Post-op TURP./ Home health nurse think SPT maybe infected Impression: Diagnoses and all orders for this visit: Urinary retention . Plan: 18 Nicaraguan SP tube exchanged today, placed to drainage Discussed with patient and his son who is present with him that unfortunately despite TURP he is still unable to void After his void trial in office the bag had to be hooked up to drainage as he could not empty his bladder Continue irrigation as needed for sediment, debris Appears significantly improved today Topical Vaseline or Aquaphor around SP tube, dressing as needed Granulation tissue, healing appropriately and as would be expected no evidence for infection Discussed with patient that at this time I would not recommend he return to driving nor to using his lawnmower Based on his current functional status and also due to having an indwelling catheter with an attached bag I feel this would be a significant hazard to him operating any heavy machinery Discussed this with his son who is present with him today as well Will plan on SP tube changes every 4 to 5 weeks and urology office They will contact office sooner as needed Discontinue finasteride, this is no longer necessary as 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 Sana Marcos, Reconstructive Urology [facility] Subjective: Mr. Sales is a 88 y.o. male who presents to the office for first SPT change. 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 Fortunately this was benign but was causing mass effect and pushing on her eye. Tennille initially passed his void trial on however it appears that he was unable to void and thus the suprapubic tube was hooked up to a drainage bag. He has had some intermittent issues with it not draining however this was resolved after hand irrigation, removing some debris and sediment Today is his first suprapubic tube exchange There is granulation tissue on the outside of the suprapubic tract, this is to be expected especially at the beginning when he is still healing Explained need for suprapubic tube, while he is very disappointed that he is not able to have the tube removed we did manage to secure it in a different fashion so that he was able to be slightly more mobile I showed his son how to secure it today as well 01/28/24 [facility] ED. SP tube not draining. ED Flushed it. Then drained. Sent home -Spear 01/15/24 Void trial. Able to void through penis, given cap for SPT as well as additional leg and overnight bags 01/05/24 TURP, SPT 18 fr By Priti 09/03/23 [place] - unable to void. Switched to Alfuzosin due to side effects from tamsulosin 08/18/22 [place] - unable to void. Tamsulosin BID 08/02/23 Consult for retention after spinal surgery on 07/30. > 1 L UOP Known hx of BPH, Elevated PSA Tobacco History reports that he has never smoked. He has never used smokeless tobacco. Review of Systems Review of Systems Constitutional: Positive for activity change and fatigue. HENT: Positive for hearing loss. Genitourinary: Positive for difficulty urinating. Neurological: Positive for tremors, speech difficulty and weakness. Past Medical History: Past Medical History: Diagnosis Date Acute deep vein thrombosis (DVT) of popliteal vein of left lower extremity (HCC) 11/18/2022 11/04/2022. 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/2023 Anemia Arthritis Cancer (CMS/HCC) (HCC) BcC of nose DVT (deep venous thrombosis) (HCC) LLE GERD (gastroesophageal reflux disease) History of elevated PSA Hyperlipidemia Hypertension Poison gt 11/22/2020 Umbilical hernia without obstruction or gangrene SCHEDULED FOR THE SURGERY ON 05/28 Viral URI with cough 04/11/2022 Past Surgical History: Past Surgical History: Procedure Laterality Date CATARACT EXTRACTION Right COLONOSCOPY HEMORRHOID SURGERY 1999 [facility] HERNIA REPAIR Right inguinal LAMINECTOMY 07/31/2023 L2, L3, L4, L5 laminectomy L4-L5 fusion NOSE SURGERY A KID OTHER SURGICAL HISTORY TURP UMBILICAL HERNIA REPAIR 05/28/2019 Medications Current Outpatient Medications: albuterol (2.5 MG/3ML) 0.083% nebulizer solution, Take 3 mL (2.5 mg) by nebulization e (more content not included)... [facility] Progress Noteon 02-03-2024 Progress Note --- Attestation signed by Carlos Manuel Mosley APRN - 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 at 02/03/2024 3:[address] [place] [phone] Supervising Provider?s Attestation Statement The patient met the criteria for indirect supervision. I discussed the findings and plans with the nurse and agree as documented in their noted. Carlos Manuel Mosley DNP, [facility] 02/03/2024 at 3:11 PM An electronic signature was used to authenticate this note. Patient here today with son and to learn how to irrigate SPT at home. SPT flushed with 100cc normal saline with clear urine return. Patient tolerated well. Instructed on how to detach bag prior to flushing and reconnecting bag. Irrigation supplies given along with extra bags and stat locks. Family had no other questions about irrigation process. Verbalized and demonstrated understanding of procedure. [facility] 36on 02-02-2024 36 SPT cannot be change d until 02/12/24 due to recent placement Ok to bring patient in for nurse visit to teach patient's family member how to irrigate Another option is to place urethral catheter for the time being while SPT tract is healing [facility] 36 Daughter, Roma, LVM on clinical line due to continued issues with SPT. Patient in the ER twice over the weekend due to clogged catheter and needing flushed. Daughter requesting if an order for home care to come and flush catheter daily. Returned call to Roma. Advised to have her father increase his water intake to help with sediment. Patient has [facility] coming to the house one time a week. She would like to either have Home Care come more often or be taught how to flush his catheter. Please advise. [facility] ED Nursing Noteon 02-01-2024 ED Nursing Note Patient has a suprapubic lopez catheter in place that has been obstructed due to a UTI. Bladder scan completed for 566 ml. Suprapubic lopez irrigated with 40 ml of sterile NS. Immediate return of 750 ml of yellow cloudy urine. Dr. Knox notified. Yue Chacon, RN 02/01/24 3068 [facility] ED Nursing Note Patient to room 7 wi th c/o lower abdominal pressure. Patient has a supra pubic lopez catheter, that has been blocked in past visits. Patient is taking an antibiotic for a UTI. V/S obtained, call light within reach. [facility] ED Provider Noteon ED Provider Note EMERGENCY DEPARTMENT ENCOUNTER Pt Name: Tennille Sales Birthdate 1935 Date of evaluation: 02/01/2024 ED Provider: Conrad Knox MD CHIEF COMPLAINT Chief Complaint Patient presents with Abdominal Pain HISTORY OF PRESENT ILLNESS (Location/Symptom, Timing/Onset, Context/Setting, Quality, Duration, Modifying Factors, Severity) Note limiting factors. I wore appropriate PPE for the entirety of this encounter. HPI Tennille Sales is a 88 y.o. who presents to the emergency department with chief complaint of suprapubic abdominal pain. Patient has a suprapubic catheter in place. Family states that it does not appear to be draining since around 11 AM. Patient is complaining of a pressure sensation in the suprapubic region. Patient states that he has recently started antibiotics for urinary tract infection. Since starting his catheter has clogged 3 previous times. Suprapubic catheter was just placed approximately 2-3 weeks ago. Nursing Notes were reviewed. Limitations to history: None Outside historians: Family REVIEW OF SYSTEMS Review of Systems All other systems reviewed and are negative. Pertinent positives and negatives as per HPI. PAST MEDICAL HISTORY Past Medical History: Diagnosis Date Acute deep vein thrombosis (DVT) of popliteal vein of left lower extremity (HCC) 11/18/2022 11/04/2022. 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 ([facility]) 04/21/2023 Anemia Arthritis Cancer (CMS/HCC) ([facility]) BcC of nose DVT (deep venous thrombosis) ([facility]) LLE GERD (gastroesophageal reflux disease) History of elevated PSA Hyperlipidemia Hypertension Poison gt 11/22/2020 Umbilical hernia without obstruction or gangrene SCHEDULED FOR THE SURGERY ON 05/28 Viral URI with cough 04/11/2022 SURGICAL HISTORY Past Surgical History: Procedure Laterality Date CATARACT EXTRACTION Right COLONOSCOPY HEMORRHOID SURGERY 1999 [facility] HERNIA REPAIR Right inguinal LAMINECTOMY 07/31/2023 L2, L3, L4, L5 laminectomy L4-L5 fusion NOSE SURGERY A KID OTHER SURGICAL HISTORY TURP UMBILICAL HERNIA REPAIR 05/28/2019 CURRENT MEDICATIONS Previous Medications ALBUTEROL (2.5 MG/3ML) 0.083% NEBULIZER SOLUTION Take 3 mL (2.5 mg) by nebulization every 6 hours as needed for wheezing. ASCORBIC ACID PO Take 500 mg by mouth before bedtime. CALCIUM CITRATE-VITAMIN D (CALCIUM CITRATE + PO) Take 600 mg by mouth before bedtime. CEFUROXIME (CEFTIN) 500 MG TABLET Take 1 tablet (500 mg) by mouth 2 times daily for 7 days. CHOLECALCIFEROL PO Take 125 mcg by mouth before bedtime. CICLOPIROX (LOPROX) 0.77 % CREAM Apply topically 2 times daily x4 weeks to affected toenails FAMOTIDINE (PEPCID) 20 MG TABLET Take by mouth every evening. FINASTERIDE (PROSCAR) 5 MG TABLET Take 1 tablet (5 mg) by mouth daily. Do not crush, chew, or split. FLUTICASONE (FLONASE) 50 MCG/ACT NASAL SPRAY Administer 2 sprays into each nostril daily. Shake gently. Before first use, prime pump. After use, clean tip and replace cap. FLUTICASONE-SALMETEROL 500-50 MCG/ACT AEROSOL POWDER INHALE 1 DOSE BY MOUTH TWICE DAILY DIRECTED GUAIFENESIN (MUCINEX) 600 MG 12 HR TABLET Take 1 tablet (600 mg) by mouth 2 times daily. Do not crush, chew, or split. MULTIPLE VITAMINS-MINERALS (CENTRUM SILVER 50+MEN PO) Take by mouth Nightly. NON FORMULARY 2 times daily as needed. Unk eye drop PANTOPRAZOLE (PROTONIX) 40 MG EC TABLET Take 40 mg by mouth daily. POLYETHYLENE GLYCOL, PEG, 3350 (MIRALAX) 17 GM/SCOOP POWDER Take 17 g by mouth daily. RIVAROXABAN (XARELTO) 20 MG TABLET Take 1 tablet (20 mg) by mouth daily. Take with food. Do not start before January 07, 2024. SENNA-DOCUSATE SODIUM (SENOKOT-S) 8.6-50 MG TABLET Take 1 tablet by mouth Daily as needed for constipation (if no bowel movement in 3 days). VALSARTAN (DIOVAN) 40 MG TABLET Take 1 tablet (40 mg) by mouth daily. ALLERGIES Hydrocodone, Lisinopril, and Seasonal ic [cholestatin] FAMILY HISTORY Family History Problem Relation Name Age of Onset Heart disease Mother Cancer Father SOCIAL HISTORY Social History Socioeconomic History Marital status: Tobacco Use Smoking status: Never Smokeless tobacco: Never Vaping Use Vaping status: Never Used Substance and Sexual Activity Alcohol use: Yes Comment: 3-4 per year Drug use: No Sexual activity: Not Currently Social Determinants of Health Financial Resource Strain: Low Risk (04/10/2023) Overall Financial Resource Strain (CARDIA) Difficulty of Paying Living Expenses: Not very hard Food Insecurity: No Food Insecurity (01/06/2024) Hunger Vital Sign Worried About Running Out of Food in the Last Year: Never true Ran Out of Food in the Last Year: Never true Transportation Needs: No Transportation Needs (01/06/2024) PRAPARE - Transportation Lack of Transportation (Medical): No Lack of Transportation (Non-Medical): No Physical Ac (more content not included)... [facility] 36on 01-30-2024 36 Received a VM from patient's daughter Roma. Roma states patient was seen in the ER the past 2 nights for UTI and clogged catheter. States patient has had a lot of sediment in his catheter. They just wanted to make us aware and requested a call back with any additional instructions. Roma is not on patient's contact list. Contacted patient and spoke with his spouse Manju. Manju gave permission for this nurse to speak with Roma about patient's care. Manju did inform this nurse that patient's urine at this moment looks clear. Advised Manju this nurse would speak with Roma. Call placed to Roma. Roma just wanted us to be aware that patient was in the ER and being treated for a UTI. Discussed sediment. Advised to have patient increase his water intake, and that once infection clears the sediment may not be a concern. Reviewed with daughter that if patient's catheter clogs they can call the office during business hours and if after hours to just go to the ER like they did. Reviewed follow up with Dr. Marcos on 02/11. Advised this is sufficient for follow up and POC going forward will be discussed at that visit. Roma voiced understanding and was thankful for return call. [facility] ED Nursing Noteon 01-30-2024 ED Nursing Note Pt's catheter flushe d, large chunk of settlement came out along with 700cc of urine. Pt reports relief. DO Gombash at bedside. Harriet Gutiérrez, AILYN 01/30/242323 Harriet Gutiérrez RN 01/30/24 2325 [facility] ED Nursing Note Lopez cath bag last drained at 1999. Harriet Gutiérrez RN 01/30/24 2300 [facility] ED Nursing Note Dr. Baeza at bedside . Hemalatha Sanchez RN 01/30/2425 [facility] ED Nursing Note Suprapubic catheter irrigated with 60 ML sterile water. Small amount of a yellow substance noted in syringe after irrigation. Immediate return of urine- approx 500 ml. Patient tolerated well. New dressing placed on insertion site per patient request. Site was open to air prior. Hemalatha Sanchez RN 01/30/2425 [facility] ED Provider Noteon ED Provider Note EMERGENCY DEPARTMENT ENCOUNTER Pt Name: Ciro Sales Birthdate 1935 Date of evaluation: 01/30/2024 ED Provider: Alberto Angeles DO CHIEF COMPLAINT Chief Complaint Patient presents with Urinary Catheter Problem Pt here for third night in a row for catheter to be flushed. Pt has had to have pain medications and catheter flushed for it to drain. Pt reports he has settlement in his catheter clogging it due to a UTI. Pt has suprapubic catheter and has a urologist who he called today. HISTORY OF PRESENT ILLNESS (Location/Symptom, Timing/Onset, Context/Setting, Quality, Duration, Modifying Factors, Severity) Note limiting factors. I wore appropriate PPE for the entirety of this encounter. HPI Ciro Sales is a 88 y.o. male who presents to the emergency department with lower abdominal pain and decreased output from his suprapubic catheter. Patient has been in the emergency room the past 3 nights for the same complaint. Found to have a UTI 2 nights ago which led to increased sediment buildup which clog the catheter. Last night it was flushed and draining. Today when he was going to bed he noticed mild increased pain and decreased output. Pain is now moderate to severe in the suprapubic region. No fevers or chills. Nursing Notes were reviewed. REVIEW OF SYSTEMS 14 systems reviewed and otherwise acutely negative except as in the [place]. PAST MEDICAL HISTORY Past Medical History: Diagnosis Date Acute deep vein thrombosis (DVT) of popliteal vein of left lower extremity (HCC) 11/18/2022 11/04/2022. 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/2023 Anemia Arthritis Cancer (CMS/HCC) (HCC) BcC of nose DVT (deep venous thrombosis) (HCC) LLE GERD (gastroesophageal reflux disease) History of elevated PSA Hyperlipidemia Hypertension Poison gt 11/22/2020 Umbilical hernia without obstruction or gangrene SCHEDULED FOR THE SURGERY ON 05/28 Viral URI with cough 04/11/2022 SURGICAL HISTORY Past Surgical History: Procedure Laterality Date CATARACT EXTRACTION Right COLONOSCOPY HEMORRHOID SURGERY 1999 [facility] HERNIA REPAIR Right inguinal LAMINECTOMY 07/31/2023 L2, L3, L4, L5 laminectomy L4-L5 fusion NOSE SURGERY A KID OTHER SURGICAL HISTORY TURP UMBILICAL HERNIA REPAIR 05/28/2019 CURRENT MEDICATIONS Discharge Medication List as of 01/30/2024 11:26 PM CONTINUE these medications which have NOT CHANGED Details albuterol (2.5 MG/3ML) 0.083% nebulizer solution Take 3 mL (2.5 mg) by nebulization every 6 hours as needed for wheezing., Starting Fri01/13/2024, Print ASCORBIC ACID PO Take 500 mg by mouth before bedtime., Historical Med Calcium Citrate-Vitamin D (CALCIUM CITRATE + PO) Take 600 mg by mouth before bedtime., Historical Med cefuroxime (Ceftin) 500 MG tablet Take 1 tablet (500 mg) by mouth 2 times daily for 7 days., Starting Fri01/28/2024, Until Fri02/04/2024, Normal CHOLECALCIFEROL PO Take 125 mcg by mouth before bedtime., Historical Med ciclopirox (Loprox) 0.77 % cream Apply topically 2 times daily x4 weeks to affected toenails, Normal famotidine (Pepcid) 20 MG tablet Take by mouth every evening., Historical Med finasteride (Proscar) 5 MG tablet Take 1 tablet (5 mg) by mouth daily. Do not crush, chew, or split., Starting Fri12/16/2023, Until Fri12/15/2024, Normal fluticasone (Flonase) 50 MCG/ACT nasal spray Administer 2 sprays into each nostril daily. Shake gently. Before first use, prime pump. After use, clean tip and replace cap., Starting Fri09/11/2023, Until Fri09/10/2024, Normal Fluticasone-Salmeterol 500-50 MCG/ACT aerosol powder INHALE 1 DOSE BY MOUTH TWICE DAILY DIRECTED, Historical Med guaiFENesin (Mucinex) 600 MG 12 hr tablet Take 1 tablet (600 mg) by mouth 2 times daily. Do not crush, chew, or split., Starting Fri10/13/2023, Until Fri02/10/2024, Normal Multiple Vitamins-Minerals (CENTRUM SILVER 50+MEN PO) Take by mouth Nightly., Historical Med NON FORMULARY 2 times daily as needed. Unk eye drop, Historical Med pantoprazole (ProtoNix) 40 MG EC tablet Take 40 mg by mouth daily., Starting Fri11/27/2023, Historical Med polyethylene glycol, PEG, 3350 (MiraLax) 17 GM/SCOOP powder Take 17 g by mouth daily., Starting Fri12/16/2023, Until Fri12/15/2024, Normal rivaroxaban (Xarelto) 20 MG tablet Take 1 tablet (20 mg) by mouth daily. Take with food. Do not start before January 07, 2024., Starting Fri01/07/2024, Normal senna-docusate sodium (Senokot-S) 8.6-50 MG tablet Take 1 tablet by mouth Daily as needed for constipation (if no bowel movement in 3 days)., Starting Fri09/29/2023, Until Fri09/28/2024 at 2359, Normal valsartan (Diovan) 40 MG tablet Take 1 tablet (40 mg) by mouth daily., Starting Fri10/13/2023, Until 04/10/2024, Normal ALLERGIES Hydrocodone, Lisinopril, and Seasonal ic [cholestatin] FAMILY HISTORY Family History Problem R (more content not included)... [facility] ED Provider Noteon ED Provider Note EMERGENCY DEPARTMENT ENCOUNTER Pt Name: Ciro Sales Birthdate 1935 Date of evaluation: 01/29/2024 ED Provider: King Baeza MD CHIEF COMPLAINT Chief Complaint Patient presents with Urinary Retention Pt has suprapubic catheter that has stopped draining. Began to have pain when going to sleep. HISTORY OF PRESENT ILLNESS I wore appropriate PPE for the entirety of this encounter. HPI Ciro Sales is a 88 y.o. person who presents to the emergency department with concern for Lopez catheter not draining. He had a TURP procedure done last month and had both Lopez catheter placed through his penis as well as suprapubically. He was seen in the office 2 weeks ago where they removed his penile Lopez catheter and was able to do a void trial at that time they did his suprapubic catheter with the hopes that he would be urinating normally although he reports that has not been doing so. He does have mild leakage through the penis itself although main drainage is through the Lopez catheter. He was seen here yesterday where he had CT imaging as well as blood work and urinalysis obtained was thought to have a UTI and case was discussed with urology on-call who recommended keeping Lopez catheter in place as the tract was too immature at this time and having him follow-up outpatient. He reports throughout the day was draining appropriately up until about 7 PM when it stopped draining he feels suprapubic pain as well as no drainage from the Lopez catheter since this time last time he emptied it was at 9 PM and has had no output since then. Nursing Notes were reviewed. Limitations to history: None Outside historians: None REVIEW OF SYSTEMS Review of Systems Gastrointestinal: Positive for abdominal pain. PAST MEDICAL HISTORY Past Medical History: Diagnosis Date Acute deep vein thrombosis (DVT) of popliteal vein of left lower extremity (HCC) 11/18/2022 11/04/2022. 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/2023 Anemia Arthritis Cancer (CMS/HCC) (HCC) BcC of nose DVT (deep venous thrombosis) ([facility]) LLE GERD (gastroesophageal reflux disease) History of elevated PSA Hyperlipidemia Hypertension Poison gt 11/22/2020 Umbilical hernia without obstruction or gangrene SCHEDULED FOR THE SURGERY ON 05/28 Viral URI with cough 04/11/2022 SURGICAL HISTORY Past Surgical History: Procedure Laterality Date CATARACT EXTRACTION Right COLONOSCOPY HEMORRHOID SURGERY 1999 [facility] HERNIA REPAIR Right inguinal LAMINECTOMY 07/31/2023 L2, L3, L4, L5 laminectomy L4-L5 fusion NOSE SURGERY A KID OTHER SURGICAL HISTORY TURP UMBILICAL HERNIA REPAIR 05/28/2019 CURRENT MEDICATIONS Previous Medications ALBUTEROL (2.5 MG/3ML) 0.083% NEBULIZER SOLUTION Take 3 mL (2.5 mg) by nebulization every 6 hours as needed for wheezing. ASCORBIC ACID PO Take 500 mg by mouth before bedtime. CALCIUM CITRATE-VITAMIN D (CALCIUM CITRATE + PO) Take 600 mg by mouth before bedtime. CEFUROXIME (CEFTIN) 500 MG TABLET Take 1 tablet (500 mg) by mouth 2 times daily for 7 days. CHOLECALCIFEROL PO Take 125 mcg by mouth before bedtime. CICLOPIROX (LOPROX) 0.77 % CREAM Apply topically 2 times daily x4 weeks to affected toenails FAMOTIDINE (PEPCID) 20 MG TABLET Take by mouth every evening. FINASTERIDE (PROSCAR) 5 MG TABLET Take 1 tablet (5 mg) by mouth daily. Do not crush, chew, or split. FLUTICASONE (FLONASE) 50 MCG/ACT NASAL SPRAY Administer 2 sprays into each nostril daily. Shake gently. Before first use, prime pump. After use, clean tip and replace cap. FLUTICASONE-SALMETEROL 500-50 MCG/ACT AEROSOL POWDER INHALE 1 DOSE BY MOUTH TWICE DAILY DIRECTED GUAIFENESIN (MUCINEX) 600 MG 12 HR TABLET Take 1 tablet (600 mg) by mouth 2 times daily. Do not crush, chew, or split. MULTIPLE VITAMINS-MINERALS (CENTRUM SILVER 50+MEN PO) Take by mouth Nightly. NON FORMULARY 2 times daily as needed. Unk eye drop PANTOPRAZOLE (PROTONIX) 40 MG EC TABLET Take 40 mg by mouth daily. POLYETHYLENE GLYCOL, PEG, 3350 (MIRALAX) 17 GM/SCOOP POWDER Take 17 g by mouth daily. RIVAROXABAN (XARELTO) 20 MG TABLET Take 1 tablet (20 mg) by mouth daily. Take with food. Do not start before January 07, 2024. SENNA-DOCUSATE SODIUM (SENOKOT-S) 8.6-50 MG TABLET Take 1 tablet by mouth Daily as needed for constipation (if no bowel movement in 3 days). VALSARTAN (DIOVAN) 40 MG TABLET Take 1 tablet (40 mg) by mouth daily. ALLERGIES Hydrocodone, Lisinopril, and Seasonal ic [cholestatin] FAMILY HISTORY Family History Problem Relation Name Age of Onset Heart disease Mother Cancer Father SOCIAL HISTORY Social History Socioeconomic History Marital status: Tobacco Use Smoking status: Never Smokeless tobacco: Never Vaping Use Vaping status: Never Used Substance and Sexual Activity Alcohol use: Yes Comment: 3-4 per year (more content not included)... [facility] 36on 01-28-2024 36 Name of caller: January Contact phone number: [phone] Relationship to Patient: [facility]hab Therapist Provider: Dr. Marcos Practice: Urology Chief Complaint/Reason for Call: January states that the patient has been in terrible pain since yesterday. Pain around his pubic catheter into the penis area. She states that the pain medication is not helping it at all , there is a yellowish sloth around the pubic catheter. Urine is cloudy and thick. Patient is thinking of going to the ER because pain is so bad. Please contact January to advise. Best time of day caller can be reached: any Patient advised that office/PCP has 24-48 business hours to return their call: N/A [facility] CBC W Auto Differential pane l (Bld)on 01-28-2024 Basophils (Bld) [#/Vol] 0.0 10*3/uL 0.0 - 0.2 10*3/uL [facility] Basophils/100 WBC (Bld) 0.3 % 0.0 - 2.0 % [facility] Eosinophils (Bld) [#/Vol] 0.0 10*3/uL 0.0 - 0.5 10*3/uL [facility] Eosinophils/100 WBC (Bld) 0.3 % 0.0 - 6.0 % [facility] Erythrocyte distribution width (RBC) [Ratio] 14.5 % 11.5 - 15.0 % [facility] Hematocrit (Bld) [Volume fraction] 38.3 % Low 40.0 - 52.0 % [facility] Hemoglobin (Bld) [Mass/Vol] 12.5 g/dL Low 13.0 - 18.0 g/dL [facility] Immature granulocytes (Bld) [#/Vol] 0.1 10*3/uL High NINF - 0.1 10*3/uL [facility] Immature granulocytes/100 WBC (Bld) 0.4 % 0.0 - 2.0 % [facility] Interpretation and review of laboratory results Abnormal [facility] Lymphocytes (Bld) [#/Vol] 2.2 10*3/uL 1.0 - 4.3 10*3/uL [facility] Lymphocytes/100 WBC (Bld) 18.4 % 15.0 - 45.0 % [facility] MCH (RBC) [Entitic mass] 28.0 pg 26. 0 - 34.0 pg [facility] MCHC (RBC) [Mass/Vol] 32.6 % 30.5 - 36.0 % [facility] MCV (RBC) [Entitic vol] 85.9 fL 77.0 - 99.0 fL [facility] Monocytes (Bld) [#/Vol] 0.9 10*3/uL 0.0 - 0.9 10*3/uL [facility] Monocytes/100 WBC (Bld) 7.4 % 5.0 - 13.0 % [facility] Neutrophils (Bld) [#/Vol] 8.8 10*3/uL High 1.8 - 7.5 10*3/uL [facility] Neutrophils/100 WBC (Bld) 73.2 % 38.0 - 82.0 % [facility] Nucleated RBC/100 WBC (Bld) [Ratio] 0.0 % [facility] Platelet mean volume (Bld) [Entitic vol] 9.6 fL 9.0 - 12.7 fL [facility] Comment on above: MPV is a calculated measurement using platelet volume ratio Platelets (Bld) [#/Vol] 311 10*3/uL 140 - 440 10*3/uL [facility] RBC (Bld) [#/Vol] 4.46 10*6/uL 4.40 - 5.9 0 10*6/uL [facility] WBC (Bld) [#/Vol] 12.0 10*3/uL High 3.6 - 10.7 10*3/uL [facility] CBC WITH AUTO DIFFERENTIALon 01-28-2024 Basophils (Bld) [#/Vol] 0.0 10*3/uL Normal 0.0-0.2 [facility] Comment on above: Performed By: #### L [id number] #### Clinical Engineering Director: CHIQUIS PINEDO ([id number]) [facility] ([facility]) [address] [place] [address] Basophils/100 WBC (Bld) 0.3 % Normal 0.0-2.0 [facility] Comment on above: Performed By: #### L [id number] #### Clinical Engineering Director: CHIQUIS PINEDO ([id number]) [facility]) [address] [place] [address] Eosinophils (Bld) [#/Vol] 0.0 10*3/uL Normal 0.0-0.5 [facility] Comment on above: Performed By: #### L [id number] #### Clinical Engineering Director: CHIQUIS PINEDO ([id number]) [facility]) [address] [place] [address] Eosinophils/100 WBC (Bld) 0.3 % Normal 0.0-6.0 [facility] Comment on above: Performed By: #### L [id number] #### Clinical Engineering Director: CHIQUIS PINEDO ([id number]) [facility]) [address] [place] [address] Erythrocyte distribution width (RBC) [Ratio] 14.5 % Normal 11.5-15.0 [facility] Comment on above: Performed By: #### L [id number] #### Clinical Engineering Director: CHIQUIS PINEDO ([id number]) [facility]) [address] [place] [address] Hematocrit (Bld) [Volume fraction] 38.3 % Low 40.0-52.0 [facility] Comment on above: Performed By: #### L [id number] #### Clinical Engineering Director: CHIQUIS PINEDO ([id number]) [facility]) [address] [place] [address] Hemoglobin (Bld) [Mass/Vol] 12.5 g/dL Low 13.0-18.0 [facility] Comment on above: Performed By: #### L [id number] #### Clinical Engineering Director: CHIQUIS PINEDO ([id number]) [facility]) [address] [place] [address] IMMATURE GRANS % 0.4 % Normal 0.0-2.0 [facility] Comment on above: Performed By: #### L [id number] #### Clinical Engineering Director: CHIQUIS PINEDO ([id number]) [facility] ([facility]) [address] [place] [address] IMMATURE GRANS ABSOLUTE 0.1 10*3/uL High <0.1 [facility] Comment on above: Performed By: #### L [id number] #### Clinical Engineering Director: CHIQUIS PINEDO ([id number]) [facility] ([facility]) [address] [place] [address] Lymphocytes (Bld) [#/Vol] 2.2 10*3/uL Normal 1.0-4.3 [facility] Comment on above: Performed By: #### L [id number] #### Clinical Engineering Director: CHIQUIS PINEDO ([id number]) [facility]) [address] [place] [address] Lymphocytes/100 WBC (Bld) 18.4 % Normal 15.0-45.0 [facility] Comment on above: Performed By: #### L [id number] #### Clinical Engineering Director: CHIQUIS PINEDO ([id number]) [facility] ([facility]) [address] [place] [address] MCH (RBC) [Entitic mass] 28.0 pg Normal 26.0-34.0 [facility] Comment on above: Performed By: #### L [id number] #### Clinical Engineering Director: CHIQUIS PINEDO ([id number]) [facility]) [address] [place] [address] MCHC 32.6 % Normal 30.5-36.0 [facility] Comment on above: Performed By: #### L [id number] #### Clinical Engineering Director: CHIQUIS PINEDO ([id number]) [facility] ([facility]) [address] [place] [address] MCV (RBC) [Entitic vol] 85.9 fL Normal 77.0-99.0 [facility] Comment on above: Performed By: #### L [id number] #### Clinical Engineering Director: CHIQUIS PINEDO ([id number]) [facility] ([facility]) [address] [place] [address] [place] Monocytes (Bld) [#/Vol] 0.9 10*3/uL Normal 0.0-0.9 [facility] Comment on above: Performed By: #### L [id number] #### Clinical Engineering Director: CHIQUIS PINEDO ([id number]) [facility] ([facility]) [address] [place] [address] Monocytes/100 WBC (Bld) 7.4 % Normal 5.0-13.0 [facility] Comment on above: Performed By: #### L AB239 #### Clinical Engineering Director: CHIQUIS PINEDO ([id number]) [facility] [address] [place] [address] NEUTROPHILS ABSOLUTE 8.8 10*3/uL High 1.8-7.5 [facility] Comment on above: Performed By: #### L [id number] #### Clinical Engineering Director: CHIQUIS PINEDO ([id number]) [facility] [address] [place] [address] Neutrophils/100 WBC (Bld) 73.2 % Normal 38.0-82.0 [facility] Comment on above: Performed By: #### L [id number] #### Clinical Engineering Director: CHIQUIS PINEDO ([id number]) [facility] [address] [place] [address] NRBC 0.0 /100 WBCs Normal 0.0-2.0 [facility] Comment on above: Performed By: #### L [id number] #### Clinical Engineering Director: CHIQUIS PINEDO ([id number]) [facility] ([facility]) [address] [place] [address] Platelet mean volume (Bld) [Entitic vol] 9.6 fL Normal 9.0-12.7 [facility] Comment on above: Result Comment: MPV is a calculated measurement using platelet volume ratio Performed By: #### L AB239 #### Clinical Engineering Director: CHIQUIS PINEDO ([id number]) [facility]) [address] [place] [address] Platelets (Bld) [#/Vol] 311 10*3/uL Normal 140-440 [facility] Comment on above: Performed By: #### L AB239 #### Clinical Engineering Director: CHIQUIS PINEDO ([id number]) [facility] ([facility]) [address] [place] [address] RBC (Bld) [#/Vol] 4.46 10*6/uL Normal 4.40-5.90 [facility] Comment on above: Performed By: #### L AB239 #### Clinical Engineering Director: CHIQUIS PINEDO ([id number]) [facility] ([facility]) [address] [place] [address] WBC (Bld) [#/Vol] 12.0 10*3/uL High 3.6-10.7 [facility] Comment on above: Performed By: #### L AB239 #### Clinical Engineering Director: CHIQUIS PINEDO ([id number]) [facility] ([facility]) [address] [place] [address] COMPLETE URINALYSISon 2023 BACTERIA (#/HPF) IN URINE Loaded Abnormal Negative [facility] Comment on above: Performed By: #### L [id number] ####Clinical Engineering Director: CHIQUIS PINEDO ([id number])[facility] ([facility])[address] [place] [address] BILIRUBIN, TOTAL PRESENCE IN URINE Negative Normal Negative [facility] Comment on above: Performed By: #### L AB347 ####Clinical Engineering Director: CHIQUIS PINEDO ([id number])[facility] ([facility])[address] [place] [address] Clarity (U) Extra Turbid Abnormal Clear [facility] Comment on above: Performed By: #### L AB347 ####Clinical Engineering Director: CHIQUIS PINEDO ([id number])[facility] ([facility])[address] [place] [address] Color (U) Yellow Normal Lt. Yellow [facility] Comment on above: Performed By: #### L AB347 ####Clinical Engineering Director: CHIQUIS PINEDO ([id number])[facility] ([facility])[address] [place] [address] [place] GLUCOSE (MG/DL) IN URINE Normal Normal Nor mal (<70) [facility] Comment on above: Performed By: #### L AB347 ####Clinical Engineering Director: CHIQUIS PINEDO ([id number])[facility] ([facility])[address] [place] [address] [place] HEMOGLOBIN PRESENCE IN URINE 1.0 mg/dL Abnormal Negative [facility] Comment on above: Performed By: #### L AB347 ####Clinical Engineering Director: CHIQUIS PINEDO ([id number])[facility] ([facility])[address] Ketones Ql (U) Negative Normal Negative [facility] Comment on above: Performed By: #### L AB347 ####Clinical Engineering Director: CHIQUIS PINEDO ([id number])[facility] ([facility])[address] [place] [address] [place] LEUKOCYTE ESTERASE PRESENCE IN URINE BY TEST STRIP 500 David/uL Abnormal Negative [facility] Comment on above: Performed By: #### L AB347 ####Clinical Engineering Director: CHIQUIS PINEDO ([id number])[facility] BRAYRAIZA RITTMAN ([facility])[address] [place] [address] [place] NITRITE PRESENCE IN URINE Negative Normal Negative [facility] Comment on above: Performed By: #### L AB347 ####Clinical Engineering Director: CHIQUIS PINEDO ([id number])[facility] ([facility])[address] [place] [address] [place] pH (U) 6.5 [pH] Normal 5.0-8.0 [facility] Comment on above: Performed By: #### L AB347 ####Clinical Engineering Director: CHIQUIS PINEDO ([id number])[facility] ([facility])[address] [place] [address] [place] Protein (U) [Mass/Vol] 200 mg/dL Abnormal Negative [facility] Comment on above: Performed By: #### L AB347 ####Clinical Engineering Director: CHIQUIS PINEDO ([id number])[facility] EASTMAN [facility] ([facility])[address] [place] [address] [place] RBC (#/HPF) IN URINE SEDIMENT Present Abnormal 0-2 [facility] Comment on above: Performed By: #### L AB347 ####Clinical Engineering Director: CHIQUIS PINEDO ([id number])[facility] ([facility])[address] [place] [address] Specific gravity (U) [Rel density] 1.014 Normal 1.005-1.030 [facility] Comment on above: Performed By: #### L AB347 ####Clinical Engineering Director: CHIQUIS PINEDO ([id number])[facility] ([facility])[address] [place] [address] SQUAMOUS EPITHELIAL CELLS (#/HPF) IN URINE SEDIMENT Present Abnormal 3-5 [facility] Comment on above: Performed By: #### L AB347 ####Clinical Engineering Director: CHIQUIS PINEDO ([id number])[facility] E[facility] ([facility])[address] [place] [address] [place] UROBILINOGEN (MG/DL) IN URINE Normal Normal Normal (0-1) [facility] Comment on above: Performed By: #### L AB347 ####Clinical Engineering Director: CHIQUIS PINEDO ([id number])[facility] ([facility])[address] [place] [address] [place] VOLUME OF URINE QNS for accurate quantitation. Normal [facility] Comment on above: Performed By: #### L AB347 ####Clinical Engineering Director: CHIQUIS PINEDO ([id number])[facility] EAST[facility] ([facility])[address] [place] [address] [place] WBC (LEUKOCYTE) (#/HPF) IN URINE SEDIMENT Grossly loaded, unable to identify any other formed elements. Abnormal 0-5 [facility] Comment on above: Performed By: #### L [id number] ####Clinical Engineering Director: CHIQUIS PINEDO ([id number])[facility] STOVER ([facility])[address] [place] [address] COMPREHENSIVE METABOLIC PANE John 01-28-2024 Albumin [Mass/Vol] 3.8 g/dL Normal 3.5-5.0 [facility] Comment on above: Performed By: #### L AB239 #### Clinical Engineering Director: CHIQUIS PINEDO ([id number]) [facility] ([facility]) [address] [place] [address] ALP [Catalytic activity/Vol] 69 U/L Normal 38-126 [facility] Comment on above: Performed By: #### L AB239 #### Clinical Engineering Director: CHIQUIS PINEDO ([id number]) [facility] ([facility]) [address] [place] [address] ALT [Catalytic activity/Vol] 16 U/L Normal 0-49 [facility] Comment on above: Performed By: #### L AB239 #### Clinical Engineering Director: CHIQUIS PINEDO ([id number]) [facility] ([facility]) [address] [place] [address] Anion gap [Moles/Vol] 9 mmol/L Normal 3-13 [facility] Comment on above: Performed By: #### L AB239 #### Clinical Engineering Director: CHIQUIS PINEDO ([id number]) [facility] ([facility]) [address] [place] [address] AST [Catalytic activity/Vol] 22 U/L Normal 15-46 [facility] Comment on above: Performed By: #### L AB239 #### Clinical Engineering Director: CHIQUIS PINEDO ([id number]) [facility] ([facility]) [address] [place] [address] Bilirubin [Mass/Vol] 0.8 mg/dL Normal 0.2-1.3 [facility] Comment on above: Performed By: #### L AB239 #### Clinical Engineering Director: CHIQUIS PINEDO ([id number]) [facility] ([facility]) [address] [place] [address] Calcium [Mass/Vol] 9.0 mg/dL Normal 8.4-10.4 [facility] Comment on above: Performed By: #### L AB239 #### Clinical Engineering Director: CHIQUIS PINEDO ([id number]) [facility] ([facility]) [address] [place] [address] Chloride [Moles/Vol] 97 mmol/L Low 98-107 [facility] Comment on above: Performed By: #### L AB239 #### Clinical Engineering Director: CHIQUIS PINEDO ([id number]) [facility] [address] [place] [address] CO2 [Moles/Vol] 28 mmol/L Normal 22-30 [facility] Comment on above: Performed By: #### L AB239 #### Clinical Engineering Director: CHIQUIS PINEDO ([id number]) [facility]) [address] [place] [address] Creatinine [Mass/Vol] 1.74 mg/dL High 0.66-1.25 [facility] Comment on above: Performed By: #### L AB239 #### Clinical Engineering Director: CHIQUIS PINEDO ([id number]) [facility] ([facility]) [address] [place] [address] [place] GLOMERULAR FILTRATION RATE ML/MIN/1.73 SQ M.PREDICTED 37.5 mL/min/1.73m*2 Low >60.0 [facility] Comment on above: Result Comment: Calc ulation based on the Chronic Kidney Disease Epidemiology Collaboration (CKD-EPI) equation refit without adjustment for race Performed By: #### L AB239 #### Clinical Engineering Director: CHIQUIS PINEDO ([id number]) [facility] ([facility]) [address] [place] [address] [place] Glucose [Mass/Vol] 135 mg/dL High 70-100 [facility] Comment on above: Performed By: #### L AB239 #### Clinical Engineering Director: CHIQUIS [id number]) [facility] ([facility]) [address] [place] [address] Potassium [Moles/Vol] 4.5 mmol/L Normal 3.5-5.1 [facility] Comment on above: Performed By: #### L AB239 #### Clinical Engineering Director: CHIQUIS PINEDO ([id number]) [facility]) [address] [place] [address] Protein [Mass/Vol] 7.2 g/dL Normal 6.3-8.2 [facility] Comment on above: Performed By: #### L AB239 #### Clinical Engineering Director: CHIQUIS PINEDO ([id number]) [facility]) [address] [place] [address] Sodium [Moles/Vol] 133 mmol/L Low 135-145 [facility] Comment on above: Performed By: #### L AB239 #### Clinical Engineering Director: CHIQUIS PINEDO ([id number]) [facility]) [address] [place] [address] Urea nitrogen [Mass/Vol] 26 mg/dL High 9-20 [facility] Comment on above: Performed By: #### L AB239 #### Clinical Engineering Director: CHIQUIS PINEDO ([id number]) [facility]) [address] [place] [address] CT [facility]EL[facility] WO IV CONTRAST Patient Name: CIRO SALES : 1935 Exam Date/Time: 01/28/2024 16:47 Procedure: CT ABDOMEN PELVIS WO IV CONTRAST Ordering Provider: SERVIN JONATHAN Reason For Exam: LLQ abdominal pain CT ABDOMEN AND PELVIS Indication: 88-year-old male; left lower quadrant pain Scan Parameters: Multiple axial CT images were obtained of the abdomen and pelvis. Coronal and sagittal reconstructions were reviewed as well. ALARA protocol. Dose reduction was employed with automated exposure control. Contrast: No IV and no oral contrast Comparison: CTA chest 10/03/2023 FINDINGS: The lung bases are clear. A right lower lobe calcified 7 mm granuloma is present. The heart is not enlarged. Atherosclerotic calcifications are present along length of the aorta and branches. Posterior fusion hardware L4-L5 with laminectomies L2-L5. The bones are osteopenic. A postsurgical scarring is present at the midline posteriorly. Low attenuating lesions within the liver likely reflect cysts, incompletely characterized on unenhanced exam. The gallbladder is normal in contour. The pancreas is normal. Calcifications are present within the spleen. The spleen is not enlarged. The adrenal glands are normal. Bilateral perinephric stranding and edema is present. There is no obstructing ureteral calculus. There is mild prominence of the renal collecting system bilaterally. The bladder is distended approximately 16 cm. There is a ventral approach suprapubic Lopez catheter present. There is wall thickening along the posterior aspect of the bladder. It is difficult to separate the prostate gland from the bladder. The prostate gland is enlarged (TURP procedure 01/05/2024 with benign pathology). There is a 1.9 x 1.5 cm soft tissue density to the right of the bladder in the mesentery which may reflect an enlarged lymph node. There is stranding in the fat surrounding the bladder. The left iliac chain lymph node measures 2.2 x 1.9 cm. A right iliac chain lymph node measures 1.4 x 3.4 cm. The appendix is normal. A few colonic diverticuli are present. There is no CT evidence for bowel obstruction. A small sliding-type hiatal hernia is present. IMPRESSION: 1. The bladder is distended approximately 16 cm with a suprapubic Lopez catheter present. There is abnormal wall thickening along the posterior aspect of the bladder, (differential malignancy versus chronic outlet obstruction inflammation). There is no clear fatty plane between the bladder and the prostate gland. The prostate gland is enlarged (TURP procedure 01/05/2024 with benign pathology). 2. There are enlarged abnormal lymph nodes to the right of the bladder and within the bilateral iliac chain measuring 1.9 cm and 2.2 cm, malignancy is not excluded 3. There is mild hydronephrosis. Bilateral perinephric stranding is present as well as stranding surrounding the bladder, superimposed infectious/inflammatory process not excluded. 4. Lumbar spine postsurgical changes. 5. Hepatic low attenuating lesions, probable cysts. 6. Colonic diverticulosis. 7. Additional findings, as above. Report Dictated on Electronically Signed By: Yuliya Lyle MD Electronically Signed Date/Time: 01/28/2024 5:15 PM EDT Pt reports pain in his groin that started yesterday after riding a stationary bike for 15 minutes. Pt had a suprapubic catheter placed 2 weeks ago, pt denies fevers. Pt is incontinent, urinating with his penis in addition to the suprapubic catheter, catheter also appears to be leaking at the site, urine is malodorous and cloudy. Normal [facility] CT Abdomen WO contraston 1. The bladder is distended approximately 16 cm with a suprapubic Lopez catheter present. There is abnormal wall thickening along the posterior aspect of the bladder, (differential malignancy versus chronic outlet obstruction inflammation). There is no clear fatty plane between the bladder and the prostate gland. The prostate gland is enlarged (TURP procedure 01/05/2024 with benign pathology). 2. There are enlarged abnormal lymph nodes to the right of the bladder and within the bilateral iliac chain measuring 1.9 cm and 2.2 cm, malignancy is not excluded 3. There is mild hydronephrosis. Bilateral perinephric stranding is present as well as stranding surrounding the bladder, superimposed infectious/inflammatory process not excluded. 4. Lumbar spine postsurgical changes. 5. Hepatic low attenuating lesions, probable cysts. 6. Colonic diverticulosis. 7. Additional findings, as above. Report Dictated on Electronically Signed By: Yuliya Lyle MD Electronically Signed Date/Time: 01/28/2024 5:15 PM EDT [facility] Patient Name: CIRO SALES : 1935 Exam Date/Time: 01/28/2024 16:47 Procedure: CT ABDOMEN PELVIS WO IV CONTRAST Ordering Provider: SERVIN JONATHAN Reason For Exam: LLQ abdominal pain CT ABDOMEN AND PELVIS Indication: 88-year-old male; left lower quadrant pain Scan Parameters: Multiple axial CT images were obtained of the abdomen and pelvis. Coronal and sagittal reconstructions were reviewed as well. ALARA protocol. Dose reduction was employed with automated exposure control. Contrast: No IV and no oral contrast Comparison: CTA chest 10/03/2023 FINDINGS: The lung bases are clear. A right lower lobe calcified 7 mm granuloma is present. The heart is not enlarged. Atherosclerotic calcifications are present along length of the aorta and branches. Posterior fusion hardware L4-L5 with laminectomies L2-L5. The bones are osteopenic. A postsurgical scarring is present at the midline posteriorly. Low attenuating lesions within the liver likely reflect cysts, incompletely characterized on unenhanced exam. The gallbladder is normal in contour. The pancreas is normal. Calcifications are present within the spleen. The spleen is not enlarged. The adrenal glands are normal. Bilateral perinephric stranding and edema is present. There is no obstructing ureteral calculus. There is mild prominence of the renal collecting system bilaterally. The bladder is distended approximately 16 cm. There is a ventral approach suprapubic Lopez catheter present. There is wall thickening along the posterior aspect of the bladder. It is difficult to separate the prostate gland from the bladder. The prostate gland is enlarged (TURP procedure 01/05/2024 with benign pathology). There is a 1.9 x 1.5 cm soft tissue density to the right of the bladder in the mesentery which may reflect an enlarged lymph node. There is stranding in the fat surrounding the bladder. The left iliac chain lymph node measures 2.2 x 1.9 cm. A right iliac chain lymph node measures 1.4 x 3.4 cm. The appendix is normal. A few colonic diverticuli are present. There is no CT evidence for bowel obstruction. A small sliding-type hiatal hernia is present. [facility] Yuliya Lyle MD - 01/28/2024 Patient Name: CIRO SALES : 1935 Exam Date/Time: 01/28/2024 16:47 Procedure: CT ABDOMEN PELVIS WO IV CONTRAST Ordering Provider: SERVIN JONATHAN Reason For Exam: LLQ abdominal pain CT ABDOMEN AND PELVIS Indication: 88-year-old male; left lower quadrant pain Scan Parameters: Multiple axial CT images were obtained of the abdomen and pelvis. Coronal and sagittal reconstructions were reviewed as well. ALARA protocol. Dose reduction was employed with automated exposure control. Contrast: No IV and no oral contrast Comparison: CTA chest 10/03/2023 FINDINGS: The lung bases are clear. A right lower lobe calcified 7 mm granuloma is present. The heart is not enlarged. Atherosclerotic calcifications are present along length of the aorta and branches. Posterior fusion hardware L4-L5 with laminectomies L2-L5. The bones are osteopenic. A postsurgical scarring is present at the midline posteriorly. Low attenuating lesions within the liver likely reflect cysts, incompletely characterized on unenhanced exam. The gallbladder is normal in contour. The pancreas is normal. Calcifications are present within the spleen. The spleen is not enlarged. The adrenal glands are normal. Bilateral perinephric stranding and edema is present. There is no obstructing ureteral calculus. There is mild prominence of the renal collecting system bilaterally. The bladder is distended approximately 16 cm. There is a ventral approach suprapubic Lopez catheter present. There is wall thickening along the posterior aspect of the bladder. It is difficult to separate the prostate gland from the bladder. The prostate gland is enlarged (TURP procedure 01/05/2024 with benign pathology). There is a 1.9 x 1.5 cm soft tissue density to the right of the bladder in the mesentery which may reflect an enlarged lymph node. There is stranding in the fat surrounding the bladder. The left iliac chain lymph node measures 2.2 x 1.9 cm. A right iliac chain lymph node measures 1.4 x 3.4 cm. The appendix is normal. A few colonic diverticuli are present. There is no CT evidence for bowel obstruction. A small sliding-type hiatal hernia is present. IMPRESSION: 1. The bladder is distended approximately 16 cm with a suprapubic Lopez catheter present. There is abnormal wall thickening along the posterior aspect of the bladder, (differential malignancy versus chronic outlet obstruction inflammation). There is no clear fatty plane between the bladder and the prostate gland. The prostate gland is enlarged (TURP procedure 01/05/2024 with benign pathology). 2. There are enlarged abnormal lymph nodes to the right of the bladder and within the bilateral iliac chain measuring 1.9 cm and 2.2 cm, malignancy is not excluded 3. There is mild hydronephrosis. Bilateral perinephric stranding is present as well as stranding surrounding the bladder, superimposed infectious/inflammatory process not excluded. 4. Lumbar spine postsurgical changes. 5. Hepatic low attenuating lesions, probable cysts. 6. Colonic diverticulosis. 7. Additional findings, as above. Report Dictated on Electronically Signed By: Yuliya Lyle MD Electronically Signed Date/Time: 01/28/2024 5:15 PM EDT [facility] Radiology Study observation (narrative) [facility] CT Abdomen WO contrastOrdere d By: Yuliya Lyle on 01-28-2024 [facility] [employer] Work Phone: Comprehensive metabolic 1998 panelon 01-28-2024 Albumin [Mass/Vol] 3.8 g/dL 3.5 - 5.0 g/dL [facility] ALP [Catalytic activity/Vol] 69 U/L 38 - 126 U/L [facility] ALT [Catalytic activity/Vol] 16 U/L 0 - 49 U/L [facility] Anion gap [Moles/Vol] 9 mmol/L 3 - 13 mmol/L [facility] AST [Catalytic activity/Vol] 22 U/L 15 - 46 U/L [facility] Bilirubin [Mass/Vol] 0.8 mg/dL 0.2 - 1 .3 mg/dL [facility] Calcium [Mass/Vol] 9.0 mg/dL 8.4 - 10. 4 mg/dL [facility] [employer] Chloride [Moles/Vol] 97 mmol/L Low 98 - 10 7 mmol/L [facility] CO2 [Moles/Vol] 28 mmol/L 22 - 30 mmol/L [facility] Creatinine [Mass/Vol] 1.74 mg/dL High 0.66 - 1.25 mg/dL [facility] GFR/1.73 sq M.predicted (S/P/Bld) [Vol rate/Area] 37.5 mL/min Low - PINF [facility] Comment on above: Calculation based on the Chronic Kidney Disease Epidemiology Collaboration (CKD-EPI) equation refit without adjustment for race Glucose [Mass/Vol] 135 mg/dL High 70 - 100 mg/dL [facility] Interpretation and review of laboratory results Abnormal [facility] Potassium [Moles/Vol] 4.5 mmol/L 3.5 - 5.1 mmol/L [facility] [employer] Protein [Mass/Vol] 7.2 g/dL 6.3 - 8.2 g/dL [facility] [employer] Sodium [Moles/Vol] 133 mmol/L Low 135 - 145 mmol/L [facility] Urea nitrogen [Mass/Vol] 26 mg/dL High 9 - 20 mg/dL [facility] ED Nursing Noteon 01-28-2024 ED Nursing Note Pt changed into alexandre n diaper, new dressing applied to suprapubic catheter, pt changed into his clothes and assisted to car via wheelchair. Lacy Anderson RN 01/28/24 1858 [facility] ED Provider Noteon ED Provider Note [facility] ED EMERGENCY DEPARTMENT ENCOUNTER Pt Name: Ciro Sales Birthdate 1935 Date of evaluation: 01/28/2024 Provider: Andres Servin MD CHIEF COMPLAINT Chief Complaint Patient presents with Groin Pain Pt reports pain in his groin that started yesterday after riding a stationary bike for 15 minutes. Pt had a suprapubic catheter placed 2 weeks ago, pt denies fevers. Pt is incontinent, urinating with his penis in addition to the suprapubic catheter, catheter also appears to be leaking at the site, urine is malodorous and cloudy. HISTORY OF PRESENT ILLNESS I wore proper PPE for the entirety of this encounter. Ciro Sales is a 88 y.o. male who presents to the emergency department with left lower quadrant abdominal pain/inguinal pain after riding a stationary bike this evening. Patient also notes that 2 weeks ago his suprapubic catheter placed. He denies nausea, vomiting, diarrhea, constipation. No hematuria. He does have incontinence of urine through his penis but does not note any dysuria. No fever or chills. Nursing Notes were reviewed. REVIEW OF SYSTEMS As above PAST MEDICAL HISTORY Past Medical History: Diagnosis Date Acute deep vein thrombosis (DVT) of popliteal vein of left lower extremity (HCC) 11/18/2022 11/04/2022. 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/2023 Anemia Arthritis Cancer (CMS/HCC) (HCC) BcC of nose DVT (deep venous thrombosis) ([facility]) LLE GERD (gastroesophageal reflux disease) History of elevated PSA Hyperlipidemia Hypertension Poison gt 11/22/2020 Umbilical hernia without obstruction or gangrene SCHEDULED FOR THE SURGERY ON 02/07 Viral URI with cough 04/11/2022 SURGICAL HISTORY Past Surgical History: Procedure Laterality Date CATARACT EXTRACTION Right COLONOSCOPY HEMORRHOID SURGERY 1999 [facility] HERNIA REPAIR Right inguinal LAMINECTOMY 07/31/2023 L2, L3, L4, L5 laminectomy L4-L5 fusion NOSE SURGERY A KID OTHER SURGICAL HISTORY TURP UMBILICAL HERNIA REPAIR 05/28/2019 CURRENT MEDICATIONS Discharge Medication List as of 01/28/2024 6:01 PM CONTINUE these medications which have NOT CHANGED Details albuterol (2.5 MG/3ML) 0.083% nebulizer solution Take 3 mL (2.5 mg) by nebulization every 6 hours as needed for wheezing., Starting Fri01/13/2024, Print ASCORBIC ACID PO Take 500 mg by mouth before bedtime., Historical Med Calcium Citrate-Vitamin D (CALCIUM CITRATE + PO) Take 600 mg by mouth before bedtime., Historical Med CHOLECALCIFEROL PO Take 125 mcg by mouth before bedtime., Historical Med ciclopirox (Loprox) 0.77 % cream Apply topically 2 times daily x4 weeks to affected toenails, Normal famotidine (Pepcid) 20 MG tablet Take by mouth every evening., Historical Med finasteride (Proscar) 5 MG tablet Take 1 tablet (5 mg) by mouth daily. Do not crush, chew, or split., Starting Fri12/16/2023, Until Fri12/15/2024, Normal fluticasone (Flonase) 50 MCG/ACT nasal spray Administer 2 sprays into each nostril daily. Shake gently. Before first use, prime pump. After use, clean tip and replace cap., Starting Fri09/11/2023, Until Fri09/10/2024, Normal Fluticasone-Salmeterol 500-50 MCG/ACT aerosol powder INHALE 1 DOSE BY MOUTH TWICE DAILY DIRECTED, Historical Med guaiFENesin (Mucinex) 600 MG 12 hr tablet Take 1 tablet (600 mg) by mouth 2 times daily. Do not crush, chew, or split., Starting Fri10/13/2023, Until Fri02/10/2024, Normal Multiple Vitamins-Minerals (CENTRUM SILVER 50+MEN PO) Take by mouth Nightly., Historical Med NON FORMULARY 2 times daily as needed. Unk eye drop, Historical Med pantoprazole (ProtoNix) 40 MG EC tablet Take 40 mg by mouth daily., Starting Fri11/27/2023, Historical Med polyethylene glycol, PEG, 3350 (MiraLax) 17 GM/SCOOP powder Take 17 g by mouth daily., Starting Fri12/16/2023, Until Fri12/15/2024, Normal rivaroxaban (Xarelto) 20 MG tablet Take 1 tablet (20 mg) by mouth daily. Take with food. Do not start before January 07, 2024., Starting Fri01/07/2024, Normal senna-docusate sodium (Senokot-S) 8.6-50 MG tablet Take 1 tablet by mouth Daily as needed for constipation (if no bowel movement in 3 days)., Starting Fri09/29/2023, Until Fri09/28/2024 at 2359, Normal valsartan (Diovan) 40 MG tablet Take 1 tablet (40 mg) by mouth daily., Starting Fri10/13/2023, Until 04/10/2024, Normal ALLERGIES Hydrocodone, Lisinopril, and Seasonal ic [cholestatin] FAMILY HISTORY Family History Problem Relation Name Age of Onset Heart disease Mother Cancer Father SOCIAL HISTORY Social History Socioeconomic History Marital status: Tobacco Use Smoking status: Never Smokeless tobacco: Never Vaping Use Vaping status: Never Used Substance and Sexual Activity Alcohol use: Yes Comment: 3-4 per year Drug use: No Sexual activity: Not Currently Social Determinants of Health Financial (more content not included)... [facility] LIPASEon 01-28-2024 Lipase [Catalytic activity/Vol] 101 U/L Normal 23-300 [facility] Comment on above: Performed By: #### L [id number] #### Clinical Engineering Director: CHIQUIS PINEDO ([id number]) [facility] ([facility]) [address] [place] [address] Laboratory - Chemistry and C hemistry - challengeon 01-28-2024 Lipase [Catalytic activity/Vol] 101 U/L 23 - 300 U/L [facility] Lipase [Catalytic activity/V ol]on 01-28-2024 Interpretation and review of laboratory results Normal [facility] No Panel Informationon 01-27 [facility] URINE CULTUREon 10-09-2024 Bacteria identified Cx Nom (U) URINE CULTURE (A) Reference CITROBACTER FREUNDII >100,000 CFU/mL Citrobacter freundii (A) This organism possesses an ampC beta-lactamase. For serious infections outside of the urinary tract, third generation cephalosporins may not be effective, even if test results indicate the organism is susceptible. PSEUDOMONAS AERUGINOSA >100,000 CFU/mL Pseudomonas aeruginosa (A) Organism: CITROBACTER FREUNDII Antibiotic RADHA Interpretation Status Amoxicillin / Clavulanate R F Aztreonam <=1 ug/ml S F Cefazolin >=64 ug/ml R F Cefepime <=1 ug/ml S F Ceftriaxone <=1 ug/ml S F Ciprofloxacin <=0.25 ug/ml S F Gentamicin <=1 ug/ml S F Meropenem <=0.25 ug/ml S F Nitrofurantoin <=16 ug/ml S F Piperacillin / Tazobactam <=4 ug/ml S F Trimethoprim / Sulfamethoxazole <=20 ug/ml S F Organism: PSEUDOMONAS AERUGINOSA Antibiotic RADHA Interpretation Status Cefepime <=1 ug/ml S F Ciprofloxacin <=0.25 ug/ml S F Gentamicin <=1 ug/ml S F Meropenem <=0.25 ug/ml S F Piperacillin / Tazobactam <=4 ug/ml S F [ S = SUSCEPTIBLE R = RESISTANT I = INTERMEDIATE S-DD = Susceptible-dose dependent NS = Non-susceptible NO = No Interpretation ] [facility] Comment on above: Performed By: #### L [id number] #### Clinical Engineering Director: CHIQUIS PINEDO ([id number]) [facility] ([address] Urinalysis complete panel (U )Ordered By: Ximena Razo on 01-28-2024 Bacteria LM.HPF (Urine sed) [#/Area] Loaded Abnormal Negative /HPF [facility] Bilirubin Ql (U) Negative Negative mg/dL [facility] Clarity (U) Extra Turbid Abnormal Clear [facility] Color (U) Yellow Lt. Yellow [facility] Epithelial cells.squamous LM.HPF (Urine sed) [#/Area] Present Abnormal [facility] Glucose Ql (U) Normal Normal (<70) mg/dL [facility] Hemoglobin Ql (U) 1.0 mg/dL Abnormal Negative [facility] Interpretation and review of laboratory results Abnormal [facility] Ketones (U) [Mass/Vol] Negative Negat miguelito mg/dL [facility] Leukocyte esterase Test strip Ql (U) 500 Abnormal Negative David/uL [facility] Nitrite Ql (U) Negative Negative [facility] pH (U) 6.5 [pH] 5.0 - 8.0 pH [facility] Protein (U) [Mass/Vol] 200 mg/dL Abnormal Negative [facility] RBC LM.HPF (Urine sed) [#/Area] Present Abnormal [facility] Specific gravity (U) [Rel density] 1.014 1.005 - 1.030 [facility] Urobilinogen (U) [Mass/Vol] Normal Normal (0-1) mg/dL [facility] Volume, Urine QNS for accurate quantitation. [facility] WBC LM.HPF (Urine sed) [#/Area] Grossly loaded, unable to identify any other formed elements. Abnormal [facility] CARECOORDon 01-26-2024 [place] Patient Choice Patient Name: CIRO SALES Date of : 1935 [facility] 36on 01-19-2024 36 Notified. Normal [place] [address] Diagnosis code on e previous x-ray order was R06.2 Wheezing, 2 views would be okay [place] [id number] Message released to patient as written. Hermann Damian MD 01/19/24 8:02 AM Note Yes, it can be changed to a portable Patient's further questions if applicable: Char is wanting to know if pcp has a diagnosis code for order and how many views should xray be. Please advise. Were all questions from office addressed or relayed to the patient from encounter: N/A [facility] 36 Called [facility] , , it went to a . I called Bella at [phone] and left a message to call the office. [facility] 36 Yes, it can be pickett ed to a portable [facility] 36on 01-16-2024 36 Name of caller: Bill christie/ [facility] Contact phone number: [phone] Relationship to Patient: [facility] Provider: Dr. Damian Practice: [facility] Chief Complaint/Reason for Call: x-ray not completed because he was not informed of when it was scheduled. Home care wants to know if x-ray can be changed to portable x-ray. Verbal order or fax [phone]. Please advise. Best time of day caller can be reached: any Patient advised that office/PCP has 24-48 business hours to return their call: Yes [facility] Progress Noteon 01-16-2024 Progress Note EMR reviewed. The patient had a hospital admission from 01/05/24 to 01/06/24: HOSPITAL COURSE: Patient was admitted following cystoscopy, TURP, and insertion of SPT. On POD#1, pain remained well controlled. Patient was ambulating and tolerating a diet. Suprapubic catheter was clamped. Urine remained faint pink and urethral catheter third port was capped. He was discharged in stable condition. The patient had the lopez catheter removed on 01/15/24. PMH: SPINAL STENOSIS, HTN, PE, CKD3, URINARY RETENTION, PREDIABETES, ANEMIA, HYPERLIPIDEMIA Follow-up appts: 02/12/24-Urology The patient is receiving home health services. Physical therapy is visiting twice per week He has a suprapubic catheter. He stated it was leaking last night. Denies any pain. The patient stated he also has had a cough for the past few days. A home health nurse from [facility] contacted the patient's PCP on 01/13/24 and got an order for a chest x-ray and a nebulizer. He had an appt. yesterday and the nurse wanted him to get his chest x-ray while he was there. The patient stated he never was told to get the chest x-ray and therefore didn't have it done. CM contacted [facility]'s home health care and they are going to contact the patient regarding his suprapubic catheter that may be leaking and his chest x-ray order. CM called the patient back and left him a detailed voicemail message with CM's phone number in case he has any further questions. CM will continue to follow-up. Scheduled next outreach. [facility] Progress Noteon 01-15-2024 Progress Note --- Attestation signed by Carlos Manuel Mosley APRN - [facility] at 01/20/2024 10:42 AM [address] [facility] [id number] Supervising Provider?s Attestation Statement The patient met the criteria for indirect supervision. I discussed the findings and plans with the nurse and agree as documented in their noted. Carlos Manuel Mosley DNP, [facility] Urology 01/20/2024 at 10:42 AM An electronic signature was used to authenticate this note. [facility] [address] [facility] [id number] Urology Nursing Visit PATIENT NAME: Ciro Sales DATE OF : 1935 TODAY'S DATE: 01/15/2024 Patient presents today for indwelling lopez catheter removal and trial of voiding. Patient presents for lopez catheter removal and trial of voiding after episode of urinary retention. Patient is currently on Alfuzosin (Uroxatrol). Allergies Allergen Reactions Hydrocodone Other and Swelling Swelling of LEs Lisinopril Cough Seasonal Ic [Cholestatin] Other sinus Procedure: The existing 30 romanian straight tip catheter was instilled with 100 mL of sterile water into the urinary bladder. The catheter balloon was deflated, removing 20mL of fluid. The catheter was clamped and then removed without difficulty. The patient was able to void 50 mL immediately. Patient tolerated well. PLAN: Patient was able to void through his penis after the voiding trial, patient was provided a new cap for his SPT and given additional leg and overnight bag for drainage. Advised patient he may experience some leakage from his penis and this is normal, patient also advised if he has the urge to urinate through his penis, it is ok to do this. Advised patient that it is common to having some burning with urination and to see blood-tinged urine intermittently for 2-4 weeks after catheter removal due to nature of recent surgical procedure. This timeframe can be longer if on blood thinning medications. Encouraged patient to increase fluids over the next few weeks to help with blood in urine and burning with urination that can occur. Patient instructed to go to ER if fever >100.4F +/- chills develop or unable to urinate. [facility] 36on 01-13-2024 36 Bella notified and orders faxed. [place] [address] Order for chest x-ra y, nebulizer with tubing and albuterol solution printed to fax. [facility] 36 Name of caller: Bella Contact phone number: [phone] [facility] [place] Nurse Provider: Rickie Practice: [facility] Chief Complaint/Reason for Call: Bella calling and asking for chest x-ray. Pt has some wheezing. Also possibly a nebulizer. Pt does have an inhaler, O2 was 94% at room air. Pt has an appointment on at [facility] and can have X-Ray done at that time. Please Advise. Best time of day caller can be reached: Any Patient advised that office/PCP has 24-48 business hours to return their call: Yes [facility] 36on 01-08-2024 36 Noted. [facility] 36 Patient discharged f rom [facility] on 01/06/24 INSTRUCTIONS TO MA/ALIGNING CHECKER: Please call patient on day after discharge (must document patient contacted within 2 business days of discharge). - patient said he's following up with a urologist FOLLOW UP QUESTIONS FOR MA/ALIGNING CHECKER: 1. Did you get medications filled and taking them as instructed from discharge? yes 2. Are you following your discharge instructions from your hospital stay? yes 3. Please confirm patient is scheduled for a follow up appointment within the above time frame. Left a message to return call. The [facility] is allowed to schedule transitional care follow ups in case he calls back. Thanks! [facility] 36on 01-07-2024 36 Patient discharged f rom [facility] on 01/06/24 INSTRUCTIONS TO MA/ALIGNING CHECKER: Please call patient on day after discharge (must document patient contacted within 2 business days of discharge). FOLLOW UP QUESTIONS FOR MA/ALIGNING CHECKER: 1. Did you get medications filled and taking them as instructed from discharge? 2. Are you following your discharge instructions from your hospital stay? 3. Please confirm patient is scheduled for a follow up appointment within the above time frame. Left a message to return call. The [facility] is allowed to schedule transitional care follow ups in case he calls back. Thanks! [facility] CARECOORDon 01-06-2024 [place] Next Site of Care Admission Date: 01/05/2024 06:43 AM Patient Name: CIRO SALES [id number] Date of : 1935 - Placement Information - Referral Type:Home Health Care Services - New Referral ID:[id number] Provider Name:[facility] At Home Address 1:[address] Address 2: City:[place] Selection Factors:Patient/Family Choice State:[place] [facility] informed SW that Pt in need of transport home, family not able to provide transport. SW phone call w / [facility] provider [facility] and inquired upon Pt's transport benefits. SW scheduled wheelchair transport through [employer]. SW met w /Pt to inform of transport plans, bedside nurse was present in the room and was on the phone w / Pt's Dtr, informed SW that Pt was worried about possible transportation cost, Pt's Dtr is able to transport Pt home after all. Pt confirmed this information. SW cancelled transport in [employer]. SW called [facility] w / [facility] transport and cancelled scheduled transport. [facility] Care Managment Initi al Assessment Date: 01/06/2024 Patient Name: Ciro Sales : 1935 Patient Information Source of Information: Patient Cognition/Language: WFL - Within Functional Limits Permission given to speak with patient self pay representative/caregive r as indicated: Confirmation of Payer with patient/family: Yes Payer Name: [employer] Medicare [place]: No Confirmation of Primary Care Physician: Confirmed PCP Name: Hermann Damian Seen in last 2 years?: Yes Primary Caregiver: Self If assistance needed, confirmed caregiver ready, willing and able to care for patient at discharge: Confirmed with: Living Arrangements Current Residence: House Number of Floors 1 Number of Entry Steps: 3 Bed/Bath Levels: Both first floor Facility: Facility Name: Plan to Return: Lives with: Spouse/significant other Support Systems: Spouse/significant other, Children, Family members, Friends/neighbors Activities of Daily Living Ambulation: Independent (has cane, walker at home if needed) Bathing/Dressing: Independent Elimination/Continence/ Toileting: Independent Feeding: Independent Who Assists with Activities of Daily Living: Instrumental Activities of Daily Living Prescription Coverage: Yes Pharmacy Used: [facility] Medication Management: Independent Transportation/Shopping : Independent Transportation Mode: Car Needs Assistance with Transportation at Discharge: No (son will transport) Meal Preparation: Independent Laundry/Cleaning: Assistance Provider Laundry/Cleaning Assistance Provider Name: spouse Finances/Bill Paying: Independent Communication: Independent Types of Care Services/Equipment Utilized Care Services: Dialysis Type: Durable Medical Equipment: Cane, Walker Patient's Goal/Discharge Plan Patient expects to be discharged to: home with spouse and home care Discharge Planning Actions: Continue to follow Patient's Choice Rights and [employer] and Collaborative Relationships Disclosed as Indicated for Post-Acute Care: Interdisciplinary Team Engagement: Social Work Referral for: Additional Information: 88 yo male assigned to observation status for surgery on 01/05/24: Cystscopy, TURP and creation of suprapubic tube. Pt underwent CBI treatments last night. He will be going home with lopez catheter. SP tube has been capped. Met with pt at bedside; explained role of tcc. Pt lives with his . He is independent adls. He uses cane and walker prn. Discussed pt going home with catheter and he is agreeable to home care. AXEL Wagner has been made aware. Anticipate discharge to home later today vs tomorrow if medically stable. Thalia Sow RN [facility] met w /Pt, introduced self, explained role, and informed of [facility] and [employer] [facility] resources. Pt thanked for information, stated he used [facility] service 1x in past and would be interested in using again. Pt stated his Dtr will provide transport at discharge. Pt stated his has Hx of brain tumors, they are growing back, she has a scheduled follow up MRI later this month, and their children are able to provide assistance. Pt reported no other issues for to address at this time. [facility] IDNon 01-06-2024 IDN Problem: Pain - Adul t Goal: Verbalizes/displays adequate comfort level or baseline comfort level Outcome: Progressing Problem: Safety - Adult Goal: Free from fall injury Outcome: Progressing Problem: Discharge Planning Goal: Discharge to home or other facility with appropriate resources Outcome: Progressing Problem: Skin/Tissue Integrity - Adult Goal: Incisions, wounds, or drain sites healing without S/S of infection Outcome: Progressing Problem: Genitourinary - Adult Goal: Urinary catheter remains patent Outcome: Progressing [facility] IDN Problem: Pain - Adul t Goal: Verbalizes/displays adequate comfort level or baseline comfort level Outcome: Progressing Problem: Safety - Adult Goal: Free from fall injury Outcome: Progressing Problem: Discharge Planning Goal: Discharge to home or other facility with appropriate resources Outcome: Progressing Problem: Skin/Tissue Integrity - Adult Goal: Incisions, wounds, or drain sites healing without S/S of infection Outcome: Progressing Problem: Genitourinary - Adult Goal: Urinary catheter remains patent Outcome: Progressing [facility] Progress Noteon 01-06-2024 Progress Note --- Attestation signed by Sana Marcos DO at 01/07/2024 7:33 AM Attending Physician's Attestation Date of assessment: 01/06/24 I have seen and examined the patient and agree with the assessment and plan. Doing well POD1 TURP and SPT Urine clear SPT capped, urethral lopez to drainage Continue home medications at this time Outpatient void trial If able to void will still leave SPT in place, capped, for at least 2 months Please do not hesitate to reach out to the urology team with additional questions or concerns On-Call Finder --> [facility] Page on-call resident(s) first Sana Marcos DO [facility] Urology UROLOGY PROGRESS NOTE PATIENT NAME: Ciro Sales DATE OF : 1935 ADMISSION DATE: 01/05/2024 TODAY'S DATE: 01/06/2024 Subjective No acute events overnight. POD1 TURP Alivia irrigation running on slow gtt this AM, urine grade 1-2 Has been OOB BM yesterday Tolerating diet Said he does not have a ride until tomorrow Objective VS: BP 157/91 Pulse 72 Temp 36.6 ?C (97.8 ?F) (Temporal) Resp 20 Ht 5' 10 (1.778 m) Wt 210 lb (95.3 kg) SpO2 95% BMI 30.13 kg/m? I & O - 24hr: I/O last 3 completed shifts: In: 887 (9.3 mL/kg) [I.V.:828 (8.7 mL/kg); IV Piggyback:59] Out: 4200 (44.1 mL/kg) [Urine:4100 (1.2 mL/kg/hr); Blood:100] Weight: 95.3 kg I/O this shift: In: 496.7 [I.V.:496.7] Out: -90 Physical Exam: General: Neck: Resp: Abdomen: No acute distress Supple Normal effort, no respiratory distress, on room air Soft, non-tender, nondistended : Alivia irrigation on slow gtt, urine grade 1-2 Skin: Skin color, texture, turgor normal, no rashes or lesions Labs and Imaging Studies Labs: CBC: Lab Results Component Value Date WBC 7.1 12/29/2023 HGB 12.7 (L) 12/29/2023 HCT 40.6 12/29/2023 MCV 85.3 12/29/2023 PLT 242 12/29/2023 BMP: Lab Results Component Value Date GLUCOSE 92 12/29/2023 CALCIUM 9.3 12/29/2023 NA 136 12/29/2023 K 4.8 12/29/2023 CO2 30 12/29/2023 CL 103 12/29/2023 BUN 30 (H) 12/29/2023 CREATININE 1.67 (H) 12/29/2023 PT/INR: Lab Results Component Value Date INR 1.0 08/01/2023 PROTIME 10.8 08/01/2023 Assessment and Plan ASSESSMENT: 88 y.o. male with hx of BPH POD1 TURP PLAN: -Doing well -POD1 TURP -CBI on slow gtt urine grade 1-2 -CBI clamped this AM -No labs -encourage ambulation / IS - DC fluids -Will cap SPT this AM, urethral catheter to gravity drainage -Home tomorrow, no ride today Darlene Hodge MD Urology PGY-3 01/06/2024 6:40 AM -Please refer to electronic page makeup system operator finder and page the electronic page makeup system operator resident with questions or concerns [facility] 36on 01-05-2024 36 of pt called in stating she needed to cancel 01/15/24 appt because she also has an appt for herself on 01/15/24. The son of the pt got on the phone to explain the need for the appt change. Changed 01/15/24 nurse visit for VT from 9:30 AM to 11:00 AM. [facility] Nursing Noteon 01-05-2024 Nursing Note Patient family/visit or updated by RN at this time. Update to son Yobany via phone call, will meet patient in room 5130 [facility] Op Noteon 01-05-2024 Op Note UROLOGY OPERATIVE REPORT PATIENT NAME: Ciro Sales DATE OF : 1935 TODAY'S DATE: 01/05/24 PreOp Dx: Urinary retention, BPH, possible neurogenic bladder PostOp Dx: same Operation: Cystoscopy Transurethral resection of the prostate Insertion of suprapubic catheter Surgeon: Sana Marcos DO Relay Adjuster: Mc Jiménez MD PGY2 Anesthesia: General endotracheal EBL: 50 cc Wound classification: clean contaminated Implants: none Drains/Packing: none Lopez: 18 fr SPT 24 fr urethral catheter [place] irrigation Specimens: Prostate chips Complications: none apparent Condition: Stable to PACU Indication for Procedure: Ciro Sales is a 88 y.o. male who presents with urinary retention sustained several months after spinal surgery. After having a discussion on treatment options, risks and benefits, the patient wishes to proceed forward with surgical intervention Description of Procedure: Patient was brought to the operating room and placed on the operative table. Induction per anesthesia. Ancef was administered preoperative antibiotic, positioned in a lithotomy fashion. Patient was then prepped and draped in the normal sterile fashion, a timeout was performed and all parties were in agreement. Rigid cystoscope was used to atraumatically enter the bladder. Prostate is noted to be severely enlarged with intravesical median lobe and lateral lobe coaptation. Bladder was thoroughly inspected, no masses, stones, or lesions were identified. Bilateral ureteral orifices are identified, they did appear normal in number position and orientation. Scope was withdrawn and a resectoscope was then inserted. The bipolar loop electrode was used to perform transurethral resection of the prostate. We started at the 3 o'clock position and resected from the bladder neck to the verumontanum systematically going to the 9 o'clock position. Resection continued antiorly to include the anterior prostate. Once all obstructing tissue had been resected, chips were evacuated from the bladder. Scope was then reintroduced and the loop was used to obtain hemostasis. Ureteral orifices were identified again, away from the area of resection. Once adequate hemostasis had been obtained and there was noted to be a wide open channel through the prostatic urethra. At this point we inserted the suprapubic catheter. The abdomen had been prepped previously, patient was placed in a trendelenburg position. Cook Carmine Suprapubic Trochar With the bladder distended, the chosen location on the abdominal wall was incised with a scalpel. Scalpel was used to incised the dermis and then cautery was used to divide the subcutaneous tissues. Using the spinal needle from the Cook Carmine Suprapubic Trochar kit, needle was passed into the bladder under direct visualization. Inner stylet was removed and guidewire was passed into the bladder. Needle was removed and the 18/20 fr suprapubic trochar was passed over the wire. Using steady pressure the trochar was passed into the bladder. Once in the bladder, the wire and inner trochar were removed while maintaining the outer sheath. An 18 fr catheter was passed via the sheath into the bladder with aid of a catheter guide. Catheter guide was removed, and balloon was inflated under direct visualization. After balloon was inflated, bladder wall was inspected for hemostasis. There was no active bleeding identified. The scope was removed and catheter was allowed to drain. Catheter was secured to the skin with a permanent suture. Wounds were cleaned and dried and dressings were applied.the scope was withdrawn and a 24 [place] two-way hematuria catheter was placed. Balloon inflated with 30 cc of fluid and continuous bladder irrigation initiated via keys irrigation. He was administered a belladonna and opium suppository in the operating room prior to being awakened. Patient was awakened from anesthesia and transferred to the recovery room in stable condition Plan: Admit overnight for perioperative antbiotics, keys irrigation Plan to dc home on POD 1 with SPT capped and urethral lopez to drainage Has void trial next week SPT will remain capped if patient passes void trial [facility] Op Note Date: 01/05/2024 Location: [facility] OR Name: Tennille Sales, : 1935, Diagnosis Pre-op Diagnosis * Benign prostatic hyperplasia with lower urinary tract symptoms [N40.1] * Retention of urine, unspecified [R33.9] Post-op Diagnosis * Benign prostatic hyperplasia with lower urinary tract symptoms [N40.1] * Retention of urine, unspecified [R33.9] Procedures CYSTOSCOPY 28621 - NV CYSTOURETHROSCOPY TRANSURETHRAL RESECTION OF PROSTATE 57390 - NV TRURL ELECTROSURG RESCJ PROSTATE BLEED COMPLETE INSERTION OF SUPRAPUBIC TUBE 85515 - [place] ASPIRATION BLADDER INSERT SUPRAPUBIC CATHETER Surgeons * Sana Marcos - Primary Procedure Summary Anesthesia: General ASA: III Estimated Blood Loss: 100 mL Drains: Urethral Catheter (Active) Catheter Indications Short-term following a surgical procedure (i.e. Urological or Gynecological) or active irrigation 01/05/24 1105 Site Assessment Skin intact;Clean 01/05/24 1300 Collection Container Standard drainage bag 01/05/24 1105 Catheter Best Practices Drainage tube clipped to bed;Catheter secured to thigh;Tamper seal intact;Bag below bladder;Lack of dependent loop in tubing;Drainage bag less than half full;Bag not on floor 01/05/24 1142 Catheter Status Draining 01/05/24 1300 Suprapubic Catheter (Active) Site Assessment Clean;Intact 01/05/24 1300 Dressing Status Clean, dry & intact 01/05/24 1300 Dressing Type Split gauze 01/05/24 1300 Output (mL) 1100 mL 01/05/24 1300 Specimens ID Source Type Tests Collected By Collected At Frozen? Priority Lab ID 1 Prostate Tissue TISSUE EXAM Sana Benji Marcos DO 01/05/24 0846 No Routine [id number] Description: Prostate Chips Staff: Filament Wound Parts Fabricator: Camron Hernadez RN Scrub Person: Lisa Morales; Dayana Jason RN Findings: Unremarkable urethra on cystoscope insertion. Enlarged prostate with enlarged median lobe identified. TURP was done down to just proximal of the Veru. Prostatic chips collected for biopsy Suprapubic tube was then inserted without complication. Alivia irrigation initiated after insertion of both suprapubic tube and urethral lopez catheter. Complications: None; patient tolerated the procedure well. Specimens Collected: Order Name Source Comment Collection Info Order Time POTASSIUM WITH MG REFLEX For patients on dialysis to draw potassium day of surgery 01/05/2024 7:27 AM PROTHROMBIN TIME If patient on coumadin within 4 days prior. 01/05/2024 7:27 AM TISSUE EXAM Prostate Collected By: Sana Marcos DO 01/05/2024 8:46 AM Wound Class: Class II: Clean-Contaminated Blood Products: None Prophylactic Antibiotics: Procedure appropriate prophylactic antibiotic(s) given within 1 hour of surgical incision (two hours if receiving Vancomycin or flouroquinolone) [facility] Progress Noteon 01-05-2024 Progress Note Updated patient tara ly on delay. Notified them of patient going to room [facility] 3601-02-2024 36 Returned call to patient, spoke with patient and to clarify medications prior to surgery. Advised them to refer to their PAT paper work. Reviewed medication together. Communicated understanding, no further questions. [facility] 36 Received call from keshav cadena regarding his upcoming surgery. Pt had questions about his medications. Pt does take Xarelto, see TE from 12-30 with ALEJANDRA. Returned call to pt, no answer, left message to call the office back [facility] 36on 12-31-2023 36 Notified. [facility] 36 Notified by CAC, a T E was started. [facility] 36 Message released to patient as written. Bridging anticoagulation would be taking another short acting blood thinner while off of his Xarelto, but I do not feel he needs to do this for his surgery. He has been taking the Xarelto for 3 months since most recent clot, which would allow adequate treatment time. He is remaining on the Xarelto lifelong to prevent future clots. Per surgical clearance with Ashly, For the procedure he will need to be off of the anticoagulant 2 days prior to surgery and 2 days after. Please let him know the bridging instructions are not needed for him. Thank you Patient's further questions if applicable: Patient verbalized understanding. Patient would like to know how long it will take them to recover from this procedure. Please advise. Were all questions from office addressed or relayed to the patient from encounter: No [facility] 36 Yashira Rodriguez, [employer] - 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 [facility] Luly Oconnell Clinical Support Staff15 hours ago (6:33 PM) Bridging anticoagulation would be taking another short acting blood thinner while off of his Xarelto, but I do not feel he needs to do this for his surgery. He has been taking the Xarelto for 3 months since most recent clot, which would allow adequate treatment time. He is remaining on the Xarelto lifelong to prevent future clots. Per surgical clearance with Ashly, For the procedure he will need to be off of the anticoagulant 2 days prior to surgery and 2 days after. Please let him know the bridging instructions are not needed for him. Thank you. Left a message to return call. [facility] 36on 12-30-2023 36 Bridging anticoagulation would be taking another short acting blood thinner while off of his Xarelto, but I do not feel he needs to do this for his surgery. He has been taking the Xarelto for 3 months since most recent clot, which would allow adequate treatment time. He is remaining on the Xarelto lifelong to prevent future clots. Per surgical clearance with Ashly, For the procedure he will need to be off of the anticoagulant 2 days prior to surgery and 2 days after. Please let him know the bridging instructions are not needed for him. Thank you. [facility] 36 S: Patient spoke wit h [facility] nurse regarding Xarelto question pre-op B: Onset of symptoms/concern today A: Pre-testing appointment for surgery on 01/04. Patient on Xarelto and wanting to know about the bridging instructions for Xarelto pre-op. See below: rivaroxaban 20 MG tablet Commonly known as: Xarelto Take 1 tablet (20 mg) by mouth daily. Take with food. Medication Adjustments for Surgery: Other (Comment) Notes to patient: LAST DOSE PRE OP 01/02/24, FOLLOW INSTRUCTIONS GIVEN BY PCP FOR ANY NEEDED BRIDGING, FOLLOW SURGEON INSTRUCTIONS FOR WHEN OK TO RESUME - 1 DAYS POST OP PER DR. MARCOS INSTRUCTIONS R: Patient advised note will be sent to office. Please advise patient of pre-op and post-op Xarelto instructions. Patient phone is [phone]. Patient advised to keep phone charged, ringer on and near him. Patient understands care advice. No further needs at this time. Patient instructed to call back with new or worsening symptoms. Reason for Disposition ? Nursing judgment Protocols used: Information Only Call - No [id number] [facility] BASIC METABOLIC PANELon Anion gap [Moles/Vol] 3 mmol/L Normal 3-13 [facility] Comment on above: Performed By: #### L AB15 ####Clinical Engineering Director: CHIQUIS PINEDO ([id number])[address] Calcium [Mass/Vol] 9.3 mg/dL Normal 8.4-10.4 [facility] Comment on above: Performed By: #### L AB15 ####Clinical Engineering Director: CHIQUIS PINEDO ([id number])[facility])[address] [place] [address] Chloride [Moles/Vol] 103 mmol/L Normal 98-107 [facility] Comment on above: Performed By: #### L AB15 ####Clinical Engineering Director: CHIQUIS PINEDO ([id number])[address] CO2 [Moles/Vol] 30 mmol/L Normal 22-30 [facility] Comment on above: Performed By: #### L AB15 ####Clinical Engineering Director: CHIQUIS [id number])[facility] ([facility])[address] [place] [address] Creatinine [Mass/Vol] 1.67 mg/dL High 0.66-1.25 [facility] Comment on above: Performed By: #### L AB15 ####Clinical Engineering Director: CHIQUIS PINEDO ([id number])[facility] ([facility])[address] [place] [address] [place] GLOMERULAR FILTRATION RATE ML/MIN/1.73 SQ M.PREDICTED 39.4 mL/min/1.73m*2 Low >60.0 [facility] Comment on above: Result Comment: Calc ulation based on the Chronic Kidney Disease Epidemiology Collaboration (CKD-EPI) equation refit without adjustment for race Performed By: #### L AB15 ####Clinical Engineering Director: CHIQUIS PINEDO ([id number])[facility] ([facility])[address] [place] [address] Glucose [Mass/Vol] 92 mg/dL Normal 70-100 [facility] Comment on above: Performed By: #### L AB15 ####Clinical Engineering Director: CHIQUIS PINEDO ([id number])[facility] ([facility])[address] [place] [address] Potassium [Moles/Vol] 4.8 mmol/L Normal 3.5-5.1 [facility] Comment on above: Performed By: #### L AB15 ####Clinical Engineering Director: CHIQUIS PINEDO ([id number])[facility] ([facility])[address] [place] [address] [place] Sodium [Moles/Vol] 136 mmol/L Normal 135-145 [facility] Comment on above: Performed By: #### L AB15 ####Clinical Engineering Director: CHIQUIS PINEDO ([id number])[facility])[address] [place] [address] Urea nitrogen [Mass/Vol] 30 mg/dL High 9-20 [facility] Comment on above: Performed By: #### L AB15 ####Clinical Engineering Director: CHIQUIS PINEDO ([id number])[facility])[address] [place] [address] CBC (HEMOGRAM)on 12-29-2023 Erythrocyte distribution width (RBC) [Ratio] 16.3 % High 11.5-15.0 [facility] Comment on above: Performed By: #### L AB294 ####Clinical Engineering Director: CHIQUIS PINEDO ([id number])[address] Hematocrit (Bld) [Volume fraction] 40.6 % Normal 40.0-52.0 [facility] Comment on above: Performed By: #### L AB294 ####Clinical Engineering Director: CHIQUIS PINEDO ([id number])[address] Hemoglobin (Bld) [Mass/Vol] 12.7 g/dL Low 13.0-18.0 [facility] Comment on above: Performed By: #### L AB294 ####Clinical Engineering Director: CHIQUIS PINEDO ([id number])[facility])[address] [place] [address] MCH (RBC) [Entitic mass] 26.7 pg Normal 26.0-34.0 [facility] Comment on above: Performed By: #### L AB294 ####Clinical Engineering Director: CHIQUIS PINEDO ([id number])[address] MCHC 31.3 % Normal 30.5-36.0 [facility] Comment on above: Performed By: #### L AB294 ####Clinical Engineering Director: CHIQUIS PINEDO ([id number])[facility])[address] [place] [address] MCV (RBC) [Entitic vol] 85.3 fL Normal 77.0-99.0 [facility] Comment on above: Performed By: #### L AB294 ####Clinical Engineering Director: CHIQUIS PINEDO ([id number])[facility])[address] [place] [address] Platelet mean volume (Bld) [Entitic vol] 10.6 fL Normal 9.0-12.7 [facility] Comment on above: Performed By: #### L AB294 ####Clinical Engineering Director: CHIQUIS PINEDO ([id number])[facility] ([facility])[address] [place] [address] Platelets (Bld) [#/Vol] 242 10*3/uL Normal 140-440 [facility] Comment on above: Performed By: #### L AB294 ####Clinical Engineering Director: CHIQUIS PINEDO ([id number])[facility] ([facility])[address] [place] [address] RBC (Bld) [#/Vol] 4.76 10*6/uL Normal 4.40-5.90 [facility] Comment on above: Performed By: #### L AB294 ####Clinical Engineering Director: CHIQUIS PINEDO ([id number])[facility] ([facility])[address] [place] [address] WBC (Bld) [#/Vol] 7.1 10*3/uL Normal 3.6-10.7 [facility] Comment on above: Performed By: #### L AB294 ####Clinical Engineering Director: CHIQUIS PINEDO ([id number])[facility])[address] [place] [address] PREPROCINSon 12-29-2023 PREPROCINS Medication List Accurate as of December 29, 2023 3:26 PM. Always use your most recent med list. ASCORBIC ACID PO Medication Adjustments for Surgery: Take night before surgery CALCIUM CITRATE + PO Medication Adjustments for Surgery: Take night before surgery CENTRUM SILVER 50+MEN PO Medication Adjustments for Surgery: Take night before surgery CHOLECALCIFEROL PO Medication Adjustments for Surgery: Take night before surgery ciclopirox 0.77 % cream Commonly known as: Loprox Apply topically 2 times daily x4 weeks to affected toenails Medication Adjustments for Surgery: Other (Comment) famotidine 20 MG tablet Commonly known as: Pepcid Medication Adjustments for Surgery: Take night before surgery finasteride 5 MG tablet Commonly known as: Proscar Take 1 tablet (5 mg) by mouth daily. Do not crush, chew, or split. Medication Adjustments for Surgery: Take morning of surgery fluticasone 50 MCG/ACT nasal spray Commonly known as: Flonase Administer 2 sprays into each nostril daily. Shake gently. Before first use, prime pump. After use, clean tip and replace cap. Medication Adjustments for Surgery: Take morning of surgery guaiFENesin 600 MG 12 hr tablet Commonly known as: Mucinex Take 1 tablet (600 mg) by mouth 2 times daily. Do not crush, chew, or split. Medication Adjustments for Surgery: Hold morning of surgery NON FORMULARY Medication Adjustments for Surgery: Other (Comment) Notes to patient: OK TO USE EYE DROPS IF NEEDED pantoprazole 40 MG EC tablet Commonly known as: ProtoNix Medication Adjustments for Surgery: Take morning of surgery polyethylene glycol (PEG) 3350 17 GM/SCOOP powder Commonly known as: MiraLax Take 17 g by mouth daily. Medication Adjustments for Surgery: Hold morning of surgery rivaroxaban 20 MG tablet Commonly known as: Xarelto Take 1 tablet (20 mg) by mouth daily. Take with food. Medication Adjustments for Surgery: Other (Comment) Notes to patient: LAST DOSE PRE OP 01/02/24, FOLLOW INSTRUCTIONS GIVEN BY PCP FOR ANY NEEDED BRIDGING, FOLLOW SURGEON INSTRUCTIONS FOR WHEN OK TO RESUME - 1 DAYS POST OP PER DR. MARCOS INSTRUCTIONS senna-docusate sodium 8.6-50 MG tablet Commonly known as: Senokot-S Take 1 tablet by mouth Daily as needed for constipation (if no bowel movement in 3 days). Medication Adjustments for Surgery: Hold morning of surgery valsartan 40 MG tablet Commonly known as: Diovan Take 1 tablet (40 mg) by mouth daily. Medication Adjustments for Surgery: Hold morning of surgery Additional Instructions: You may take your prescription pain medication. You may take Tylenol for pain. NO Motrin, ibuprofen or Advil for 24 hours prior to surgery or longer if instructed by your surgeon. NO Aleve or Naprosyn for 5 days prior to surgery or longer if instructed by your surgeon. IF YOU TAKE BLOOD THINNERS OR ASPIRIN: DO NOT take aspirin or aspirin containing products for 5 days before surgery, or longer if instructed by your surgeon. Follow any instructions given to you by Dr. MARCOS Shower with an antibacterial soap such as Dial or Safeguard or shower kit provided to you before coming to the hospital. No makeup, lotion, powder, deodorant or body spays. No hair products. Remove all jewelry and leave it at home. Wear loose comfortable clothing to go home in. You may brush your teeth morning of surgery. Do not wear contacts day of surgery. No marijuana (THC), smoking or alcohol for 24 hours prior to surgery. Please arrange for a responsible adult to drive you home after your surgery and that there is a responsible adult with you for 24 hours post discharge. If you have specific questions, please call your surgeon. You will receive a call the day before your surgery to verify your arrival time and date. You will be asked to arrive at least two hours prior to your scheduled surgery time. Please bring your [facility] Surgical folder and medication list with you day of surgery. We encourage you to write down any questions you may have for the surgeon, anesthesiologist, or other members of the surgical team and bring it with you the day of surgery. Please bring photo ID and insurance information. If you will be spending the night following surgery, please plan to have your ride available by 11 am on the day of discharge. SUPERVISOR [employer]AL[employer]ING ENTER BUILDING AT THE MAIN ENTRANCE. TAKE THE H ELEVATOR TO THE FIRST FLOOR, TURN LEFT OFF THE ELEVATOR AND GO TO THE SAME DAY SURGERY REGISTRATION DESK TO CHECK IN PARKING DECK You may park in the main garage for free day of surgery, and take the bridge on level one to enter the hospital. Sign into same day surgery on the right hand side. [facility] Progress Noteon 12-29-2023 Progress Note [facility] PLANNI DIANN Ciro Leeroy Sales : 1935 Primary Care Physician: Hermann Damian MD The patient and/or family/surrogate voluntarily agreed to participate in ACP services. Patient?s cognitive capacity: Patient is Alert and [place] to person, place and time Code Status: [x] [FULL CODE - Continue all advanced life support: CPR,intubation,invasive procedures] [_] [DNR-CCA - DO NOT do CPR, intubation] [_] [DNR-FIRE SUPPORT MAN - Comfort care only] [_] DNR form [was/was not] signed Summary of discussion: The patient health care POA/ surrogate is the following: Yes, advised to bring a copy DOS to have scanned into his chart [Condition that instigated the ACP on this DOS, relevant PMH, functional status, goals of care, and whom this was discussed with including names and relationship to the patient, and any relevant advance care documentation discussion] I answered all the patient/family questions that I could within the range and scope of the current medical situation. We discussed the medical conditions, risks, benefits, outcomes, and goals of care at this time for the patient's medical issues at hand in the face of the patient's chronic issues and current presentation. Total time spent: 2 minutes were spent discussing the patient's resuscitation status, advance care planning, and end of life care, with patient and/or family/surrogate. Tanna Finch APRN - 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 [employer] 12/29/2023, 11:57 AM [facility] 36on 12-24-2023 36 Spoke to patient, appointment was confirmed. [facility] Office Visiton 12-24-2023 Follow-up visit [id number] Ciro Sales 1935 [facility] Provider Department Center 12/24/2023 [id number] BLAND [facility] Family History Problem Relation Age of Onset Heart disease Mother Cancer Father Family Status - Relation Status Age at Mother Father Level of Service:80433 [place] OFFICE/OUTPATIENT ESTABLISHED LOW MDM 20 MIN Reason for Visit and Comments: Follow-up [625503] - Surgical Clearance [facility] Progress Noteon 12-24-2023 Progress Note [facility] [address] [facility] [address] Dept: [phone] Dept Loc: [phone] Subjective Chief Complaint: Mr. Sales is a 88 y.o. male who presentsfor pre-operative evaluation. Planned surgery: cystoscopy Surgeon: Dr. Marcos Date of Surgery: 01/05/2024 Patient is scheduled for surgery January 05, 2024 and preoperative testing on December 29, 2023. Currently has a urinary catheter due to urinary retention and BPH. He is scheduled for cystoscopy. 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 He will have been on anticoagulant for 3 months since the last episode. 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 For the procedure he will need to be off of the anticoagulant 2 days prior to surgery and 2 days after. Review of Systems Constitutional: Negative for activity change, appetite change, diaphoresis, fatigue, fever and unexpected weight change. Respiratory: Positive for cough. Negative for apnea, chest tightness and shortness of breath. Cardiovascular: Negative for chest pain, palpitations and leg swelling. Gastrointestinal: Negative. Genitourinary: Urinary catheter Musculoskeletal: Negative. Neurological: Negative for dizziness, light-headedness and headaches. Psychiatric/Behavioral: Negative. Functional Capacity (>4 METS implies low cardiovascular risk from surgery): Do yardwork, such as raking leaves, weeding,or pushing a power mower (4.50 METs) Jose's Simple Cardiac RiskIndex: High-risk surgery (intraperitoneal, intrathoracic or suprainguinalvascular surgery): no Coronary artery disease: yes - 1 Point Congestive heart failure: no History of cerebrovascular disease: no Insulin treatment for diabetes mellitus: no Preoperative serumcreatinine > 2.0mg/dL: pending preoperative testing on 12/29/2023 Total: pending results of preop testing for creatinine Interpretation: 0Points Class I 1 Point Class II 2 Points Class III >=3 Points Class IV Class: pending preop testing Objective BP 115/72 Pulse 81 Temp 36.9 ?C (98.4 ?F) (Infrared) Resp 24 Wt 205 lb 9.6 oz (93.3 kg) SpO2 93% BMI 29.50 kg/m? Physical Exam Constitutional: General: He is not in acute distress. Appearance: Normal appearance. He is not ill-appearing. HENT: Head: Normocephalic and atraumatic. Right Ear: Tympanic membrane normal. Left Ear: Tympanic membrane normal. Nose: Nose normal. Mouth/Throat: Mouth: Mucous membranes are moist. Pharynx: Oropharynx is clear. No posterior oropharyngeal erythema. Eyes: Conjunctiva/sclera: Conjunctivae normal. Cardiovascular: Rate and Rhythm: Normal rate and regular rhythm. Pulses: Normal pulses. Heart sounds: Normal heart sounds. Pulmonary: Effort: Pulmonary effort is normal. Breath sounds: Normal breath sounds. Abdominal: General: Bowel sounds are normal. Palpations: Abdomen is soft. Tenderness: There is no abdominal tenderness. Genitourinary: Comments: Urinary catheter draining clear yellow urine Musculoskeletal: Right lower leg: No edema. Left lower leg: No edema. Comments: Gait steady and ambulates without assistance Lymphadenopathy: Cervical: No cervical adenopathy. Skin: General: Skin is warm and dry. Neurological: Mental Status: He is alert and oriented to person, place, and time. Psychiatric: Mood and Affect: Mood normal. Behavior: Behavior normal. Thought Content: Thought content normal. Assessment/Plan 1. Pre-operative clearance [x] No CV contraindications to surgery, as per ACC / AHA guidelines [] Postponesurgery for noninvasive testing Patient medically optimized for surgery. He does have pending preadmission testing which should include an updated CBC and BMP for renal functioning. His previous labs completed in September were relatively good and his creatinine was below 2. Discussed increased risk of thrombosis, PE or stroke with being off of the anticoagulant for the surgery. He would like to proceed with the surgery as scheduled. Follow-up:Follow up for with specialist. Gretchen Cabrera, [employer] - 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 [facility] Progress Note Patient was identifi ed by name and Date of . [facility] 36on 12-19-2023 36 Left a message to return call. CAC: If patient calls back please confirm if he can come in on 12/23 at 10:00 am for his surgical clearance [facility] 36on 12-18-2023 36 Lvm for Pt with d/t/ l and instructions for PAT/Surgery Doctor: Priti PATE (arrive 15 min early): 12/29/23 at 10:00am at [facility] PAT instructions: Please bring photo ID, insurance card, list of all current medications Surgery: 01/05/24 at 8:30am at [facility] Surgery arrival time: 6:30am Surgery instructions: Nothing to eat after midnight. Can have clear liquids black coffee (no cream or dairy), tea, water, Sprite, apple juice, Gatorade (no reds or purples) up until arrival time. Medication instructions: Hold Aspirin, fish oil and over the counter vitamins 3 days prior to surgery Post op follow-up: [facility] Progress Noteon 12-18-2023 Progress Note EMR reviewed. The patient had a follow-up appt. with PCP's office on 11/12/23: HPI - Ciro Sales (: 1935) is a 88 y.o. male , Established patient, here for the evaluation of the following chief complaint(s): Follow-up Presents with today for continued cough and sinus drainage, was referred to ENT but his appointment is not until the end of December. He would like referral to another provider to see if he can get in sooner. Denies any increased symptoms. He also would like to try Tessalon Perles for his cough as he has taken those in the past. Denies any fever or chills. Urinary retention-continues to have Lopez catheter and reports he is going to see urology next month and hopefully have it removed. Recently had a pulmonary embolism and was restarted on anticoagulants. He is currently on Xarelto 20 mg daily. Previously on Eliquis. Anemia-was placed on ferrous sulfate to help with his anemia. Last CBC was markedly improved and his iron levels had also improved. Last checked labs 1 month ago. He would like to stop taking the ferrous sulfate as it causes him constipation. Vitals: BP 133/75 Pulse 82 Temp 37.1 ?C (98.7 ?F) (Infrared) Resp 16 Wt 93.1 kg (205 lb 3.2 oz) SpO2 94% BMI 29.44 kg/m? BSA 2.14 m? Pain Sc 0-No pain The patient had a follow-up appt. with Urology on 12/16/23: HPI HPI He is on xarelto for DVT/PE which was found in early September 2023 10/07/23 had surgery planned (TURP and SPT insertion) however this was cancelled as he was admitted with a PE He would like to proceed with surgery when able to schedule Understands that we need to weigh risks and benefits of holding anticoagulation and discuss appropriate timing of surgery Will start finasteride at this time This will potentially help with prostatic bleeding/varices are time of surgery Plan: Will send message to PCP regarding timing of surgery Would need to hold Xarelto 2 days prior to surgery and likely 2 days after surgery If unable to hold xarelto, would not recommend surgery at this time Continue Q 4 week catheter changes If we are able to get Cysto/TURP/SPT scheduled then would plan for catheter change with urine culture about 2 weeks prior to surgery date Will contact pt once we head back from primary team PMH: SPINAL STENOSIS, HTN, PE, CKD3, URINARY RETENTION, PREDIABETES, ANEMIA, HYPERLIPIDEMIA Follow-up appts: 12/24/23-Family medicine 12/29/2302-Kds-hliqcflca testing 01/07/24-Family medicine 01/15/24-Urology ?receiving physical therapy ?having cystoscopy on 01/05/24 ?still having a cough ?get paperwork completed for patient assistance for Xarelto Outreach attempted. CM called [phone] and left a voicemail message requesting a callback. Scheduled next outreach. [facility] 36on 12-17-2023 36 Correction on time: 12/23 at 10:00am [facility] 36 Left a message to return call. CAC: I am going to put patient on schedule for 12/23 at 10:20am for a surgical clearance per ashly. Please confirm with patient if this will work. [facility] 36 Name of caller: Tennille Contact phone number: [phone] or call [phone] Relationship to Patient: patient Provider: Dr. Damian Practice: [facility] Chief Complaint/Reason for Call: pt called to get the surgical visit gerardo and the soonest was 01/07/24 and please call if the pt can get in anytime next week, 12/22/23. Pt does not drive and has a lot of upcoming appt and is wanting to get the surgery with Dr. Marcos as soon as he can. See prior TE. Pt is on vacation till 12/21/23 and will have his cell with him till he comes back home. Best time of day caller can be reached: any Patient advised that office/PCP has 24-48 business hours to return their call: N/A [facility] Office Visiton 12-16-2023 Follow-up visit [id number] Ciro Sales 1935 M Date Provider Department Center 12/16/2023 [id number]-FABHSANA MARCOS [facility] URO None Family History Problem Relation Age of Onset Heart disease Mother Cancer Father Family Status - Relation Status Age at Mother Father Level of Service:87800 [place] OFFICE/OUTPATIENT ESTABLISHED MOD MDM 30 MIN Reason for Visit and Comments: Follow-up [582046] Urinary Retention [781475] - Discuss surgery options [facility] Progress Noteon 12-16-2023 Progress Note Sana Marcos DO Urology Office Visit Established patient [facility] [address] [facility] [address] Dept: [phone] Dept Loc: [phone] PATIENT NAME: Ciro Sales DATE OF : 1935 REFERRING PROVIDER: No ref. provider found PCP: Hermann Damian MD DATE OF VISIT: 12/16/23 CHIEF COMPLAINT: Chief Complaint Patient presents with Follow-up Urinary Retention Discuss surgery options Impression: Diagnoses and all orders for this visit: Urinary retention BPH with obstruction/lower urinary tract symptoms - finasteride (Proscar) 5 MG tablet; Take 1 tablet (5 mg) by mouth daily. Do not crush, chew, or split. Constipation, unspecified constipation type - polyethylene glycol, PEG, 3350 (MiraLax) 17 GM/SCOOP powder; Take 17 g by mouth daily. Acute pulmonary embolism, unspecified pulmonary embolism type, unspecified whether acute cor pulmonale present (HCC) . Plan: Will send message to PCP regarding timing of surgery Would need to hold Xarelto 2 days prior to surgery and likely 2 days after surgery If unable to hold xarelto, would not recommend surgery at this time Continue Q 4 week catheter changes If we are able to get Cysto/TURP/SPT scheduled then would plan for catheter change with urine culture about 2 weeks prior to surgery date Will contact pt once we head back from primary team Follow Up: Follow up in about 2 weeks (around 12/30/2023) for nurse visit catheter change . Sana Marcos DO Reconstructive Urology [facility] Subjective: Mr. Sales is a 88 y.o. male who presents to the office for BPH/urinary retention . Records have been reviewed HPI HPI He is on xarelto for DVT/PE which was found in early September 2023 10/07/23 had surgery planned (TURP and SPT insertion) however this was cancelled as he was admitted with a PE He would like to proceed with surgery when able to schedule Understands that we need to weigh risks and benefits of holding anticoagulation and discuss appropriate timing of surgery Will start finasteride at this time This will potentially help with prostatic bleeding/varices are time of surgery 09/03/23 VT - unable to void. Switched to Alfuzosin due to side effects from tamsulosin 08/18/22 VT - unable to void. Tamsulosin BID 08/02/23 Consult for retention after spinal surgery on 07/30. > 1 L UOP Known hx of BPH, Elevated PSA Tobacco History reports that he has never smoked. He has never used smokeless tobacco. Review of Systems Review of Systems Constitutional: Negative. HENT: Negative. Cardiovascular: Negative for leg swelling. Genitourinary: Positive for difficulty urinating. Musculoskeletal: Positive for back pain and gait problem. Neurological: Positive for weakness. Past Medical History: Past Medical History: Diagnosis Date Acute deep vein thrombosis (DVT) of popliteal vein of left lower extremity (HCC) 11/18/2022 11/04/2022. 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/2023 Anemia Arthritis Cancer (CMS/HCC) (HCC) BcC of nose DVT (deep venous thrombosis) ([facility]) LLE GERD (gastroesophageal reflux disease) History of elevated PSA Hyperlipidemia Hypertension Poison gt 11/22/2020 Umbilical hernia without obstruction or gangrene SCHEDULED FOR THE SURGERY ON 05/28 Viral URI with cough 04/11/2022 Past Surgical History: Past Surgical History: Procedure Laterality Date CATARACT EXTRACTION Right COLONOSCOPY HEMORRHOID SURGERY 1999 [facility] HERNIA REPAIR Right inguinal LAMINECTOMY 07/31/2023 L2, L3, L4, L5 laminectomy L4-L5 fusion NOSE SURGERY A KID UMBILICAL HERNIA REPAIR 05/28/2019 Medications Current Outpatient Medications: ASCORBIC ACID PO, Take 500 mg by mouth before bedtime., Disp: , Rfl: Calcium Citrate-Vitamin D (CALCIUM CITRATE + PO), Take 600 mg by mouth before bedtime., Disp: , Rfl: CHOLECALCIFEROL PO, Take 125 mcg by mouth before bedtime., Disp: , Rfl: ciclopirox (Loprox) 0.77 % cream, Apply topically 2 times daily x4 weeks to affected toenails, Disp: 90 g, Rfl: 0 fluticasone (Flonase) 50 MCG/ACT nasal spray, Administer 2 sprays into each nostril daily. Shake gently. Before first use, prime pump. After use, clean tip and replace cap., Disp: 16 g, Rfl: 5 guaiFENesin (Mucinex) 600 MG 12 hr tablet, Take 1 tablet (600 mg) by mouth 2 times daily. Do not crush, chew, or split., Disp: 60 tablet, Rfl: 3 Multiple Vitamins-Minerals (CENTRUM SILVER 50+MEN PO), Take by mouth 1 (one) time each day., Disp: , Rfl: NON FORMULARY, 2 times daily as needed. Unk eye drop, Disp: , Rfl: pantoprazole (ProtoNix) 40 MG EC tablet, Take 40 mg by mouth daily., Disp: , Rfl: rivaroxaban (Xarelto) 20 MG tablet, Take 1 tablet (20 mg) by mouth daily. Take with food., Disp: 90 tablet, Rfl: 1 senna-docusate sodium (Senokot-S) 8.6-50 MG ta (more content not included)... [facility] Progress Noteon 11-25-2023 Progress Note --- Attestation signed by Calros Manuel Mosley APRN - 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 at 11/25/2023 10:[address] [place] [id number] Supervising Provider?s Attestation Statement The patient met the criteria for indirect supervision. I discussed the findings and plans with the nurse and agree as documented in their noted. Carlos Manuel Mosley DNP, KALLIE [facility] Urology 11/25/2023 at 10:37 AM An electronic signature was used to authenticate this note. [facility] [address], [address] [facility] [id number] Urology Nursing Visit PATIENT NAME: Ciro Sales DATE OF : 1935 TODAY'S DATE: 11/25/2023 Patient presents today for indwelling lopez catheter change. The patient's identity was verified by name and . Existing catheter 10 mL balloon deflated and the 16 romanian coud? tip catheter catheter was removed without difficulty. Patient prepped and draped in sterile fashion. A new 16 romanian coud? tip catheter catheter was inserted without difficulty an 10 mL of fluid used to inflate catheter balloon. There noted to be draining blood-tinged clear urine output passively into drainage bag. Patient tolerated well. Extra drainage bag and stat locks given to patient at this time. Urojet x 1 UROJET 6 ML [facility] [id number] LOT # [id number] EXPIRES 09/2025 Administered by Iram Morrison MA Pt tolerated well Encouraged patient and to push fluids to clear up blood. Reassured patient and that blood in urine most likely from catheter passing large prostate. Advised patient that it is common to see blood-tinged urine for the first 48 hours after catheter change just from the manipulation. This timeframe can be longer if on blood thinning medications. Advised to call office if catheter not draining in >4 hours during the daytime hours. If catheter not draining and becomes uncomfortable after hours, patient will have to go to the nearest emergency department for evaluation of catheter. [facility] 36on 11-13-2023 36 Patients notifi ed. Patient already scheduled on 11/27/23. [facility] 36 Will call after [address] [facility] Office Visiton 11-12-2023 Follow-up visit [id number] Ciro Sales 1935 M Date Provider Department Center 11/12/2023 [id number][facility]GBHK[facility]UNLAGRETCHEN [facility] Family History Problem Relation Age of Onset Heart disease Mother Cancer Father Family Status - Relation Status Age at Mother Father Level of Service:74020 [place] OFFICE/OUTPATIENT ESTABLISHED LOW MDM 20 MIN Reason for Visit and Comments: Follow-up [796108] [facility] PATINSon 11-12-2023 PATINS Ok to stop taking iron. Normal [facility] Progress Noteon 11-12-2023 Progress Note Likely secondary to chronic postnasal drainage. Recommend continuing with fluticasone nasal spray. Previously referred to ENT, as we had tried multiple things without significant improvement in his symptoms. Patient reports appointment with ENT is not until the end of December and is requesting a referral to another provider to see if they can get him in sooner. Will place referral [facility] Progress Note Resolving. Patient h as continued his iron supplement over the past month and a half. Has been having some constipation secondary to the iron supplement. Most recent iron levels had improved significantly. Okay to stop iron supplement at this time [facility] Progress Note 11/12/2023 Ciro Sales (: 1935) is a 88 y.o. male , Established patient, here for evaluation of the following chief complaint(s): Follow-up ASSESSMENT/PLAN: 1. Chronic cough Assessment & Plan: Likely secondary to chronic postnasal drainage. Recommend continuing with fluticasone nasal spray. Previously referred to ENT, as we had tried multiple things without significant improvement in his symptoms. Patient reports appointment with ENT is not until the end december and is requesting a referral to another provider to see if they can get him in sooner. Will place referral Orders: - benzonatate (Tessalon) 200 MG capsule; Take 1 capsule (200 mg) by mouth 3 times daily as needed for cough for up to 7 days. Do not crush or chew., Starting Fri11/12/2023, Until Fri11/19/2023 at 2359, Normal - External referral to ENT 2. Anemia, unspecified type Assessment & Plan: Resolving. Patient has continued his iron supplement over the past month and a half. Has been having some constipation secondary to the iron supplement. Most recent iron levels had improved significantly. Okay to stop iron supplement at this time Follow up for with primary care provider as scheduled. SUBJECTIVE/OBJECTIVE: HPI - Ciro Sales (: 1935) is a 88 y.o. male , Established patient, here for the evaluation of the following chief complaint(s): Follow-up Presents with today for continued cough and sinus drainage, was referred to ENT but his appointment is not until the end of December. He would like referral to another provider to see if he can get in sooner. Denies any increased symptoms. He also would like to try Tessalon Perles for his cough as he has taken those in the past. Denies any fever or chills. Urinary retention-continues to have Lopez catheter and reports he is going to see urology next month and hopefully have it removed. Recently had a pulmonary embolism and was restarted on anticoagulants. He is currently on Xarelto 20 mg daily. Previously on Eliquis. Anemia-was placed on ferrous sulfate to help with his anemia. Last CBC was markedly improved and his iron levels had also improved. Last checked labs 1 month ago. He would like to stop taking the ferrous sulfate as it causes him constipation. Prior to Admission medications Medication Sig Start Date End Date Taking? Authorizing Provider alfuzosin ER (Uroxatral) 10 MG 24 hr tablet Take 1 tablet (10 mg) by mouth daily. Do not crush, chew, or split. 09/03/23 12/02/23 KALLIE Bowles CNP ASCORBIC ACID PO Take 500 mg by mouth before bedtime. Historical Provider, Calcium Citrate-Vitamin D (CALCIUM CITRATE + PO) Take 600 mg by mouth before bedtime. Historical Provider, CHOLECALCIFEROL PO Take 125 mcg by mouth before bedtime. Historical Provider, ciclopirox (Loprox) 0.77 % cream Apply topically 2 times daily x4 weeks to affected toenails 09/11/23 KALLIE Carter CNP famotidine (Pepcid) 20 MG tablet Take by mouth. Historical Provider, ferrous sulfate 325 (65 Fe) MG tablet Take 1 tablet (325 mg) by mouth every other day. 10/14/23 10/13/24 KALLIE Carter CNP fluticasone (Flonase) 50 MCG/ACT nasal spray Administer 2 sprays into each nostril daily. Shake gently. Before first use, prime pump. After use, clean tip and replace cap. 09/11/23 09/10/24 Gretchen KALLIE Cabrera - JERZY guaiFENesin (Mucinex) 600 MG 12 hr tablet Take 1 tablet (600 mg) by mouth 2 times daily. Do not crush, chew, or split. 10/13/23 02/10/24 Gretchen KALLIE Cabrera - JERZY Multiple Vitamins-Minerals (CENTRUM SILVER 50+MEN PO) Take by mouth 1 (one) time each day. Historical Provider, NON FORMULARY 2 times daily as needed. Unk eye drop Historical Provider, polyethylene glycol, PEG, 3350 (MiraLax) 17 GM/SCOOP powder Take 17 g by mouth daily. 09/29/23 11/28/23 Sana Marcos DO rivaroxaban (Xarelto) 20 MG tablet Take 1 tablet (20 mg) by mouth daily. Take with food. 11/11/23 Hermann Damian MD senna-docusate sodium (Senokot-S) 8.6-50 MG tablet Take 1 tablet by mouth Daily as needed for constipation (if no bowel movement in 3 days). 09/29/23 09/28/24 Sana Marcos DO valsartan (Diovan) 40 MG tablet Take 1 tablet (40 mg) by mouth daily. 10/13/23 04/10/24 KALLIE Carter CNP apixaban (Eliquis) 5 MG tablet Take 1 tablet (5 mg) by mouth 2 times daily. 11/03/23 11/07/23 KALLIE Vallecillo CNP rivaroxaban (Xarelto) 20 MG tablet Take 1 tablet (20 mg) by mouth daily. Take with food. 11/07/23 11/10/23 Hermann Damian MD Review of Systems Constitutional: Positive for fatigue (Unchanged). Negative for activity change, chills and fever. Respiratory: Positive for cough. Negative for chest tightness, shortness of breath and wheezing. Cardiovascular: Negative for chest pain and leg swelling. Neurological: Negative. Vitals: 11/12/23 1020 11/12/23 1102 BP: (!) 170/87 133/75 Pulse: (more content not included)... [facility] Healthcare Progress Note Patient was identifi ed by name and Date of . [facility]on 11-11-2023 36 Rx sent [facility] Progress Noteon 11-11-2023 Progress Note EMR reviewed. The patient had a follow-up appt. with Neurosurgery on 10/15/23: History of Present Illness: 88 y.o. presents with postop follow-up. He underwent L2, L3, L4, L5 laminectomy, L4-5 fusion on 07/31/2023. From a surgery standpoint, he is doing well with minimal back pain or leg symptoms. He was recently hospitalized due to DVT and PE, was started on Eliquis. He states he is easily fatigued and complains of chronic cough, has been following with his PCP. He is following with urology for urinary retention. Overall he is pleased with his surgical results. PMH: SPINAL STENOSIS, HTN, PE, CKD3, URINARY RETENTION, PREDIABETES, ANEMIA, HYPERLIPIDEMIA Follow-up appts: 11/12/23-Family medicine 11/25/23-Urology HTN MEDS: Valsartan 40mg daily Not monitoring BP's at home. Has a BP cuff, but not working correctly. He stated PT was monitoring his BP's. Always had good readings. Denies any edema The patient stated he still has a urinary catheter. He was supposed to have a TURP surgery a few weeks ago and during the work-up they found blood clots in his legs and lungs. He is now taking Xarelto. He was treated for a UTI with IV antibiotics while in the hospital. He stated he is taking iron for anemia. Still lacking energy. The patient lives with his . His still drives, but not too far. Patient stated they are supposed to be resuming PT. PCP signed an order, but waiting to hear from home health. He has 4 children-2 boys and 2 girls. 3 live in the area. They all help the patient. The patient was also concerned about a persistent cough he has had since his hospitalization in September. This was addressed at his PCP follow-up appt. on 10/13/23. 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 recommended continuing Flonase and referred the patient to ENT. The patient is also taking Mucinex. He patient plans on re-addressing this issue 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 at tomorrow's follow-up appt. The patient was asking about financial assistance for Xarelto. CM called and spoke with a self pay representative at [facility]. CM received the patient assistance enrollment form and emailed it to the patient to complete. He has an appt. tomorrow with PCP's office and he is going to take the form into the office and have his PCP sign and fax it. CM provided the patient with CM's phone number in case he had an questions or concerns. SDOH completed. CM will continue to follow-up. Scheduled next outreach. [facility] 36on 11-10-2023 36 Spoke to pt justinnilda valentino the Xarelto rx that was sent in to replace the eliquis. He is requesting this be changed to a 90 day supply. Med pended. [place] [address]on 11-07-2023 36 Called [facility], left a detailed vm with verbal order. Called Tennille to notify him. Spoke to patient, no questions. [facility] 36 The patient called i n making sure no further information is needed. At this time, I do not see anything needed. Please advise and call Tennille to notify him when the verbal orders have been placed and he can begin with PT in the home at [phone]. [place] [address]on 11-04-2023 36 Please send a verbal order to [facility] for home PT if he qualifies. [facility] 36 Message released to patient as written. Patient's further questions if applicable Were all questions from office addressed or relayed to the patient from encounter: Yes Message released: What is he having the PT for? Urology does not usually order physical therapy. Answer: The patient states he had back surgery on 07-31-[address] Li. The patient would like to continue PT at home. Also, the patient state they found a blood clot in his legs. The patient Urology appointment does not have anything to do with his physical therapy appointment. However, he states he has a catheter and he wants it removed. The patient states he is seeing the Urologist today at 8:30 am. If you have any further questions, please call the patient. Call back time: PM [facility] Progress Noteon 11-04-2023 Progress Note --- Attestation signed by Maribel Mcgovern APRN [facility] at 11/04/2023 11:[address] [facility] [id number] Supervising Provider?s Attestation Statement The patient met the criteria for indirect supervision. I discussed the findings and plans with the nurse and agree as documented in their noted. Maribel Mcgovern APRN [facility] Urology 11/04/2023 at 11:49 AM An electronic signature was used to authenticate this note. [facility] [address], [address] [facility] [address] Urology Nursing Visit PATIENT NAME: Ciro Sales DATE OF : 1935 TODAY'S DATE: 11/04/2023 Patient presents today for indwelling lopez catheter change. The patient's identity was verified by name and . 16 Fr coude catheter removed after deflating 10 cc balloon. Site prepped with 3 povidone-iodine swabs prior to new catheter insertion. UROJET 6 ML [facility] [id number] LOT # [id number] EXPIRES 09/13 Administered by Kamaljit Holley LPN 16 Fr coude catheter placed,instilled 50 ml sodium chloride to verify placement, inflated 10 cc balloon, rec'd urine return. Pt tolerated well. Overnight bag and Clear STAT lock placed. [facility] 36 11-03-2023 36 Left a message to return call. [place] [address] Refill sent. [place] [address] Medication name: apixaban (Eliquis) 5 MG tablet The patient states he is out of the medication and is asking if the prescription can be sent to the pharmacy today. Please advise. Medication dosage: 5 mg (Miligrams Monthly quantity needed: 180 How many day supply requestin days Medication route: oral (PO) Medication administration time(s): apixaban (Eliquis) 5 MG tablet If taking medication PRN, reason for taking medication: N/A If this is a controlled substance do you receive this or any other controlled medication from any other doctor or facility: No Ordering provider: Gretchen Cabrera Date of last office visit: 10/13/2023 Date of next office visit: 04/12/2024 Date of last refill: (see medication tab): 10/06/2023 Updated/Validated preferred pharmacy: Yes Patient instructed to contact the pharmacy prior to picking up the medication: No [place] [address] What is he having th e PT for? Urology does not usually order physical therapy. [place] [address] S: The patient is calling the [facility] about a cough B: This has been present since July A: The cough productive and Mucinex is helping some but not completely. No additional symptoms noted. He is not short of breath or wheezing; no lower extremity edema. R: Offered an appointment but he prefers to wait until next week to schedule Reason for Disposition Cough has been present for > 3 weeks Protocols used: Cough - Acute Ign-Vquevvmpba-GVRQU-[place] [id number] Name of caller: Tennille Contact phone number: [phone] Relationship to Patient: patient Provider: Dr. Damian Practice: [facility] Chief Complaint/Reason for Call: pt just got back from camping with family and called urology to continue his PT with [facility] @ [phone] and they stated the pt should call Dr. Damian to continue with PT at home, have another order with [facility]. Pt wants to stay with [facility] coming out. Please advise. Best time of day caller can be reached: any Patient advised that office/PCP has 24-48 business hours to return their call: Yes [place] [address]on 10-22-2023 36 Ok. Hopefully he'll be able to come in when he gets back from vacation [facility] 36 Message released to patient as written. Patient's further questions if applicable: Were all questions from office addressed or relayed to the patient from encounter: Yes. I released the message to the patient. He said he's going on vacation next week so he won't be able to schedule an appointment. [facility] 36 Gretchen Cabrera, [employer] - 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 [facility] Clinical Support Staff1 hour ago (1:56 PM) Please call and let Tennille know that he can increase the Mucinex to 1200 mg every 12 hours. Schedule him an office appointment with me early next week if possible to further address this cough-prior to make sure he keeps the ENT appointment Left a message to return call. [facility] 36 Please call and let Tennille know that he can increase the Mucinex to 1200 mg every 12 hours. Schedule him an office appointment with me early next week if possible to further address this cough-prior to make sure he keeps the ENT appointment [place] [address] Doe Limon, I see you saw Tennille most recently and thought you may be better able to provide recommendation. Thanks. Yashira Rodriguez APRN - JERZY [facility] 36 Name of caller: tennille Contact phone number: [phone] Relationship to Patient: patient Provider: Dr. Damian Practice: [facility] Chief Complaint/Reason for Call: pt called it report can't get in to see ent until December, still coughing a lot, want to ask pcp if mucinex can be increased and also needs a cough medicine, please call and advise pt. Starts coughing every time start talking Best time of day caller can be reached: AM Patient advised that office/PCP has 24-48 business hours to return their call: Yes [facility] 36on 10-16-2023 36 Pts called henny mercado needing to R/S his 12/24/2023 josefina. I rescheduled him for 12/16/2023. [facility] Bacteria identified Cx Nom ( U)Ordered By: Phil Alejandro on 10-05-2023 Interpretation and review of laboratory results Normal [facility] Ferritin [Mass/Vol]on 2023 Interpretation and review of laboratory results Normal [facility] Laboratory - Chemistry and C hemistry - challengeon 10-05-2023 Ferritin [Mass/Vol] 74 ng/mL 18 - 464 ng/mL [facility] Laboratory - Microbiology an d Antimicrobial susceptibilityOrdered By: Phil Alejandro on 10-05-2023 Bacteria identified Cx Nom (U) No growth (<1,000 CFU/mL) [facility] US Heart TransthoracicOrdere d By: Donna Lopez on 10-05-2023 Ao Root Index 1.60 cm/m2 [facility] Work Phone: [phone] Aortic Root 3.4 cm [facility] Work Phone: [phone] AV Area by Peak Velocity 2.5 cm2 [facility] Work Phone: 95 AV Area by VTI 2.8 cm2 [facility] th Work Phone: 95 AV Mean Gradient 4 mmHg [facility] Work Phone: 95 AV Mean Velocity 0.9 m/s [facility] Work Phone: 95 AV Peak Gradient 7 mmHg [facility] Work Phone: 95 AV Peak Velocity 1.3 m/s [facility] Work Phone: 95 AV Velocity Ratio 0.62 [facility] Work Phone: 95 AV VTI 22.4 cm [facility] Work Phone: 95 ARABELLA/BSA Peak Velocity 1.2 cm2/m2 [facility] Work Phone: 95 ARABELLA/BSA VTI 1.3 cm2/m2 [facility] Work Phone: 95 Est. RA Pressure 3 mmHg [facility] Work Phone: [phone] Fractional Shortening 2D 29 % 28 - 44 % [facility] Work Phone: [phone] IVC Diameter 2.0 cm [facility] Work Phone: [phone] IVSd 0.9 cm 0.6 - 1.0 cm [facility] Work Phone: [phone] LA Diameter 2.9 cm [facility] Work Phone: [phone] LA Size Index 1.37 cm/m2 [facility] Work Phone: [phone] LA/AO Root Ratio 0.85 [facility] Work Phone: [phone] LV Mass 2D 123.1 g 88 - 224 g [facility] Work Phone: [phone] LV Mass 2D Index 58.1 g/m2 49 - 115 g/m2 [facility] Work Phone: [phone] LV RWT Ratio 0.36 [facility] [employer] Work Phone: 95 LVIDd 4.5 cm 4.2 - 5.9 cm [facility] [employer] Work Phone: [phone] LVIDd Index 2.12 cm/m2 [facility] [employer] Work Phone: [phone] LVIDs 3.2 cm [facility] [employer] Work Phone: [phone] LVIDs Index 1.51 cm/m2 [facility] [employer] Work Phone: [phone] LVOT Area 4.2 cm2 [facility] [employer] Work Phone: [phone] LVOT Cardiac Output 4.6 liter/mi nut e [facility] [employer] Work Phone: [phone] LVOT Diameter 2.3 cm [facility] Work Phone: [phone] LVOT Mean Gradient 2 mmHg [facility] [employer] Work Phone: [phone] LVOT Peak Gradient 2 mmHg [facility] [employer] Work Phone: [phone] LVOT Peak Velocity 0.8 m/s [facility] [employer] Work Phone: 95 LVOT Stroke Volume Index 29.0 mL/m2 [facility] [employer] Work Phone: [phone] LVOT SV 61.5 ml [facility] Work Phone: [phone] LVOT VTI 14.8 cm [facility] [employer] Work Phone: [phone] LVOT:AV VTI Index 0.66 [facility] Work Phone: [phone] LVPWd 0.8 cm 0.6 - 1.0 cm [facility] [employer] Work Phone: [phone] MV A Velocity 0.72 m/s [facility] Work Phone: [phone] MV E Velocity 0.40 m/s [facility] [employer] Work Phone: [phone] MV E Wave Deceleration Time 390.1 ms [facility] [employer] Work Phone: [phone] MV E/A 0.56 [facility] [employer] Work Phone: [phone] RA Area 4C 64.4 mL [facility] [employer] Work Phone: [phone] RV Free Wall Peak S' 11 cm/s [facility] [employer] Work Phone: [phone] TAPSE 1.7 cm 1.7 cm [facility] [employer] Phone: [phone] [facility] [employer] Work Phone: [phone] Heart Transthoracicon Left Ventricle: Left ventricle size is normal. Normal wall thickness. Normal left ventricular systolic function. The EF by visual approximation is 55%. Unable to assess wall motion. Right Ventricle: Not well visualized. Right Atrium: Right atrium is mildly dilated. No significant valvular abnormalities. Aorta: Ascending aorta is not well visualized. Normal sized sinuses of Valsalva. There is mild and non-protruding atherosclerosis present in the sinuses of Valsalva with grade 2 thickening (extensive aortic wall intimal thickening but no protruding atheroma). Pericardium: Evidence of prominent epicardial fat. Left Ventricle Left ventricle size is normal. Normal wall thickness. Normal left ventricular systolic function. The EF by visual approximation is 55%. Unable to assess wall motion. Indeterminate diastolic function. Right Ventricle Not well visualized. Left Atrium Not well visualized. Right Atrium Right atrium is mildly dilated. Mitral Valve Not well visualized. Tricuspid Valve Valve structure is normal. Trace regurgitation. Unable to assess RVSP due to insignificant tricuspid regurgitation. Aortic Valve Thickened cusps. No regurgitation. No stenosis. AV mean gradient is 4 mmHg. AV peak velocity is 1.3 m/s. Pulmonic Valve The pulmonic valve visualization is suboptimal but appears to be functioning normally. Ascending Aorta Ascending aorta is not well visualized. Normal sized sinuses of Valsalva. There is mild and non-protruding atherosclerosis present in the sinuses of Valsalva with grade 2 thickening (extensive aortic wall intimal thickening but no protruding atheroma). Pericardium Evidence of prominent epicardial fat. Septum No interatrial shunt visualized on color Doppler. Study Details Image quality: technically difficult. Heart rate: 70 bpm. Blood pressure: 131/79 mmHg. Technical qualifiers: Technically difficult study, technically difficult study with poor endocardial visualization, technically difficult study due to patient's body habitus, technically difficult study due to low parasternal window and procedure performed with the patient in a supine position. Technically difficult due to poor acoustic windows and lung interference. No contrast was given. Echo Additional Conclusions No significant valvular abnormalities. CV CPACS Basic metabolic 1998 panelon 10-04-2023 Anion gap [Moles/Vol] 6 mmol/L 3 - 13 mmol/L [facility] Calcium [Mass/Vol] 8.6 mg/dL 8.4 - 10. 4 mg/dL [facility] Chloride [Moles/Vol] 100 mmol/L 98 - 10 7 mmol/L [facility] CO2 [Moles/Vol] 27 mmol/L 22 - 30 mmol/L [facility] Creatinine [Mass/Vol] 1.41 mg/dL High 0.66 - 1.25 mg/dL [facility] GFR/1.73 sq M.predicted MDRD (S/P/Bld) [Vol rate/Area] 48.2 mL/min/{1.73_m2} Low - PINF [facility] Comment on above: Calculation based on the Chronic Kidney Disease Epidemiology Collaboration (CKD-EPI) equation refit without adjustment for race Glucose [Mass/Vol] 137 mg/dL High 70 - 100 mg/dL [facility] Interpretation and review of laboratory results Abnormal [facility] Potassium [Moles/Vol] 4.7 mmol/L 3.5 - 5.1 mmol/L [facility] Sodium [Moles/Vol] 132 mmol/L Low 135 - 145 mmol/L [facility] Urea nitrogen [Mass/Vol] 22 mg/dL High 9 - 20 mg/dL [facility] CBC W Auto Differential pane l (Bld)on 10-04-2023 Basophils (Bld) [#/Vol] 0.0 10*3/uL 0.0 - 0.2 10*3/uL [facility] Basophils/100 WBC (Bld) 0.4 % 0.0 - 2.0 % [facility] Eosinophils (Bld) [#/Vol] 0.1 10*3/uL 0.0 - 0.5 10*3/uL [facility] Eosinophils/100 WBC (Bld) 1.4 % 0.0 - 6.0 % [facility] Erythrocyte distribution width (RBC) [Ratio] 13.6 % 11.5 - 15.0 % [facility] Hematocrit (Bld) [Volume fraction] 33.6 % Low 40.0 - 52.0 % [facility] Hemoglobin (Bld) [Mass/Vol] 10.6 g/dL Low 13.0 - 18.0 g/dL [facility] Immature granulocytes (Bld) [#/Vol] 0.0 10*3/uL NINF - 0.1 10*3/uL [facility] Immature granulocytes/100 WBC (Bld) 0.2 % 0.0 - 2.0 % [facility] Interpretation and review of laboratory results Abnormal [facility] Lymphocytes (Bld) [#/Vol] 1.6 10*3/uL 1.0 - 4.3 10*3/uL [facility] Lymphocytes/100 WBC (Bld) 29.1 % 15.0 - 45.0 % [facility] MCH (RBC) [Entitic mass] 27.5 pg 26. 0 - 34.0 pg [facility] MCHC (RBC) [Mass/Vol] 31.5 % 30.5 - 36.0 % [facility] MCV (RBC) [Entitic vol] 87.3 fL 77.0 - 99.0 fL [facility] Monocytes (Bld) [#/Vol] 0.8 10*3/uL 0.0 - 0.9 10*3/uL [facility] Monocytes/100 WBC (Bld) 13.5 % High 5.0 - 13.0 % [facility] Neutrophils (Bld) [#/Vol] 3.1 10*3/uL 1.8 - 7.5 10*3/uL [facility] Neutrophils/100 WBC (Bld) 55.4 % 38.0 - 82.0 % [facility] Nucleated RBC/100 WBC (Bld) [Ratio] 0.0 % [facility] Platelet mean volume (Bld) [Entitic vol] 10.1 fL 9.0 - 12.7 fL [facility] Platelets (Bld) [#/Vol] 200 10*3/uL 140 - 440 10*3/uL [facility] RBC (Bld) [#/Vol] 3.85 10*6/uL Low 4.40 - 5.9 0 10*6/uL [facility] WBC (Bld) [#/Vol] 5.6 10*3/uL 3.6 - 10.7 10*3/uL [facility] No Panel Informationon 10-03 Acute occlusive deep vein thrombosis in the right peroneal vein. Acute occlusive deep vein thrombosis in the right soleal vein. Acute non-occlusive, loosely attached deep vein thrombosis in the left middle femoral vein. Acute occlusive deep vein thrombosis in the left distal femoral vein. No evidence of superficial thrombosis in the right lower extremity. No evidence of superficial thrombosis in the left lower extremity. Right Lower Venous No evidence of superficial thrombosis in the right lower extremity. Common Femoral Vein: Patent, normal phasicity, spontaneous, normal augmentation, compressible. Greater Saphenous Vein: Entire vessel patent, compressible Saphenofemoral Junction: Patent, compressible. Profunda Femoral Vein: Patent. Femoral Vein: Patent, normal phasicity, spontaneous, normal augmentation, compressible Popliteal Vein: Patent, normal phasicity, spontaneous, normal augmentation, compressible. Gastrocnemius Vein: Patent, compressible. Soleal Vein: Acute occlusive thrombus. Posterior Tibial Vein: Patent, compressible. Peroneal Vein: Acute occlusive thrombus. Left Lower Venous No evidence of superficial thrombosis in the left lower extremity. Common Femoral Vein: Patent, normal phasicity, spontaneous, normal augmentation, compressible. Greater Saphenous Vein: Enitre vessel patent, compressible. Saphenofemoral Junction: Patent, compressible. Profunda Femoral Vein: Patent. Proximal Femoral Vein: Patent, compressible. Middle Femoral Vein: Acute non-occlusive thrombus. Distal Femoral Vein: Acute occlusive thrombus. Popliteal Vein: Patent, normal phasicity, spontaneous, normal augmentation, compressible. Gastrocnemius Vein: Patent, compressible. Soleal Vein: Patent, compressible. Posterior Tibial Vein: Patent, compressible. Peroneal Vein: Patent, compressible. 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 During the study longitudinal and transverse views were obtained. Pulsed wave doppler was performed. The exam was performed with the patient in the supine position. Study was technically difficult due to: bedside exam. CV CPACS Urinalysis complete panel (U )Ordered By: Niki Mendoza on 10-04-2023 Bacteria LM.HPF (Urine sed) [#/Area] Negative Negative /HPF [facility] Bilirubin Ql (U) Negative Negative mg/dL [facility] Clarity (U) Turbid Abnormal Clear [facility] Color (U) Yellow Lt. Yellow [facility] Epithelial cells.squamous LM.HPF (Urine sed) [#/Area] [facility] Glucose Ql (U) Normal Normal (<70) mg/dL [facility] Hemoglobin Ql (U) 0.5 mg/dL Abnormal Negative [facility] Hyaline casts Auto (Urine sed) [#/Area] Negative Negative /LPF [facility] Interpretation and review of laboratory results Abnormal [facility] Ketones (U) [Mass/Vol] Negative Negat miguelito mg/dL [facility] Leukocyte esterase Test strip Ql (U) 500 Abnormal Negative David/uL [facility] Mucus LM.HPF (Urine sed) [#/Area] Few Negative /LPF [facility] Nitrite Ql (U) Negative Negative [facility] [place] pH (U) 5.0 [pH] 5.0 - 8.0 pH [facility] Protein (U) [Mass/Vol] 50 mg/dL Abnormal Negative [facility] RBC LM.HPF (Urine sed) [#/Area] 51-100 Abnormal [facility] Specific gravity (U) [Rel density] 1.024 1.005 - 1.030 [facility] Urobilinogen (U) [Mass/Vol] 2 mg/dL Abnormal Normal (0-1) [facility] WBC LM.HPF (Urine sed) [#/Area] 26-50 Abnormal [facility] Basic metabolic 1998 panelon 10-03-2023 Anion gap [Moles/Vol] 8 mmol/L 3 - 13 mmol/L [facility] Calcium [Mass/Vol] 8.7 mg/dL 8.4 - 10. 4 mg/dL [facility] Chloride [Moles/Vol] 98 mmol/L 98 - 10 7 mmol/L [facility] CO2 [Moles/Vol] 27 mmol/L 22 - 30 mmol/L [facility] Creatinine [Mass/Vol] 1.56 mg/dL High 0.66 - 1.25 mg/dL [facility] GFR/1.73 sq M.predicted MDRD (S/P/Bld) [Vol rate/Area] 42.7 mL/min/{1.73_m2} Low - PINF [facility] Comment on above: Calculation based on the Chronic Kidney Disease Epidemiology Collaboration (CKD-EPI) equation refit without adjustment for race Glucose [Mass/Vol] 146 mg/dL High 70 - 100 mg/dL [facility] Interpretation and review of laboratory results Abnormal [facility] Potassium [Moles/Vol] 4.6 mmol/L 3.5 - 5.1 mmol/L [facility] Sodium [Moles/Vol] 133 mmol/L Low 135 - 145 mmol/L [facility] Urea nitrogen [Mass/Vol] 23 mg/dL High 9 - 20 mg/dL [facility] CBC W Auto Differential pane l (Bld)on 10-03-2023 Basophils (Bld) [#/Vol] 0.0 10*3/uL 0.0 - 0.2 10*3/uL [facility] Basophils/100 WBC (Bld) 0.6 % 0.0 - 2.0 % [facility] Eosinophils (Bld) [#/Vol] 0.0 10*3/uL 0.0 - 0.5 10*3/uL [facility] Eosinophils/100 WBC (Bld) 0.3 % 0.0 - 6.0 % [facility] Erythrocyte distribution width (RBC) [Ratio] 13.7 % 11.5 - 15.0 % [facility] Hematocrit (Bld) [Volume fraction] 35.6 % Low 40.0 - 52.0 % [facility] Hemoglobin (Bld) [Mass/Vol] 11.6 g/dL Low 13.0 - 18.0 g/dL [facility] [employer] Immature granulocytes (Bld) [#/Vol] 0.0 10*3/uL NINF - 0.1 10*3/uL [facility] [employer] Immature granulocytes/100 WBC (Bld) 0.3 % 0.0 - 2.0 % [facility] Interpretation and review of laboratory results Abnormal [facility] Lymphocytes (Bld) [#/Vol] 1.4 10*3/uL 1.0 - 4.3 10*3/uL [facility] Lymphocytes/100 WBC (Bld) 19.9 % 15.0 - 45.0 % [facility] MCH (RBC) [Entitic mass] 28.0 pg 26. 0 - 34.0 pg [facility] MCHC (RBC) [Mass/Vol] 32.6 % 30.5 - 36.0 % [facility] MCV (RBC) [Entitic vol] 86.0 fL 77.0 - 99.0 fL [facility] Monocytes (Bld) [#/Vol] 0.7 10*3/uL 0.0 - 0.9 10*3/uL [facility] Monocytes/100 WBC (Bld) 9.2 % 5.0 - 13.0 % [facility] Neutrophils (Bld) [#/Vol] 4.9 10*3/uL 1.8 - 7.5 10*3/uL [facility] Neutrophils/100 WBC (Bld) 69.7 % 38.0 - 82.0 % [facility] Nucleated RBC/100 WBC (Bld) [Ratio] 0.0 % [facility] Platelet mean volume (Bld) [Entitic vol] 9.9 fL 9.0 - 12.7 fL [facility] Comment on above: MPV is a calculated measurement using platelet volume ratio Platelets (Bld) [#/Vol] 216 10*3/uL 140 - 440 10*3/uL [facility] RBC (Bld) [#/Vol] 4.14 10*6/uL Low 4.40 - 5.9 0 10*6/uL [facility] WBC (Bld) [#/Vol] 7.0 10*3/uL 3.6 - 10.7 10*3/uL [facility] COVID-19, Flu A/B, and RSV C omboon 10-03-2023 Interpretation and review of laboratory results Normal [facility] CTA Chest vessels WO and W c ontrast Nancy 10-03-2023 Significantly limite d study. No large acute central pulmonary embolus. Small regions of diminished attenuation within lower lobe and right middle lobe pulmonary arterial branches may be artifactual, however true filling defect within the right middle lobe and upper lobe segmental branches (i.e. pulmonary embolus) are a possibility. Consider follow-up duplex ultrasound of the lower extremities, correlation with patient risk factors and short-term follow-up exam. Report Dictated on Electronically Signed By: Danisha Valentin MD Electronically Signed Date/Time: 10/03/2023 12:14 PM EDT [facility] Patient Name: CIRO SALES : 1935 [id number] Exam Date/Time: 10/03/2023 11:58 Procedure: CT CHEST ANGIOGRAM W AND/OR WO IV CONTRAST Ordering Provider: SCHMITZ KEVIN Reason For Exam: Pulmonary embolism (PE) suspected, positive D-dimer EXAMINATION: CT angiogram chest Indication: Pulmonary embolism (PE) suspected, positive D-dimer TECHNIQUE: Axial CT angiographic images of the chest were obtained from the thoracic inlet through the lung bases at 1 mm intervals with IV contrast (75 cc Isovue 370). Dose reduction was employed with automatic exposure control. Images were reformatted on a separate 3-D workstation concurrently by myself and reviewed with volume rendering. FINDINGS: Respiratory and patient motion artifact present, which limits assessment. There are no definitive pulmonary arterial filling defects to suggest acute pulmonary embolus. There are regions of diminished attenuation within the pulmonary arterial branch vessels in the lower lungs, some of which are indeterminate and some of which may be artifactual. Moderate calcification of the thoracic aorta. Heart size appears borderline. No sizable pleural or pericardial effusion is noted. There is no thoracic or axillary adenopathy. The lungs are grossly clear. Small hepatic cysts are present. Scoliosis and at least moderate degenerative changes of the spine are present. [facility] Danisha Valentin MD - 10/03/2023 Patient Name: CIRO SALES : 1935 [id number] Exam Date/Time: 10/03/2023 11:58 Procedure: CT CHEST ANGIOGRAM W AND/OR WO IV CONTRAST Ordering Provider: SCHMITZ KEVIN Reason For Exam: Pulmonary embolism (PE) suspected, positive D-dimer EXAMINATION: CT angiogram chest Indication: Pulmonary embolism (PE) suspected, positive D-dimer TECHNIQUE: Axial CT angiographic images of the chest were obtained from the thoracic inlet through the lung bases at 1 mm intervals with IV contrast (75 cc Isovue 370). Dose reduction was employed with automatic exposure control. Images were reformatted on a separate 3-D workstation concurrently by myself and reviewed with volume rendering. FINDINGS: Respiratory and patient motion artifact present, which limits assessment. There are no definitive pulmonary arterial filling defects to suggest acute pulmonary embolus. There are regions of diminished attenuation within the pulmonary arterial branch vessels in the lower lungs, some of which are indeterminate and some of which may be artifactual. Moderate calcification of the thoracic aorta. Heart size appears borderline. No sizable pleural or pericardial effusion is noted. There is no thoracic or axillary adenopathy. The lungs are grossly clear. Small hepatic cysts are present. Scoliosis and at least moderate degenerative changes of the spine are present. IMPRESSION: Significantly limited study. No large acute central pulmonary embolus. Small regions of diminished attenuation within lower lobe and right middle lobe pulmonary arterial branches may be artifactual, however true filling defect within the right middle lobe and upper lobe segmental branches (i.e. pulmonary embolus) are a possibility. Consider follow-up duplex ultrasound of the lower extremities, correlation with patient risk factors and short-term follow-up exam. Report Dictated on Electronically Signed By: Danisha Valentin MD Electronically Signed Date/Time: 10/03/2023 12:14 PM EDT [facility] Radiology Study observation (narrative) [facility] sebastian Fibrin D-dimer FEU (PPP) [Ma ss/Vol]on 10-03-2023 Interpretation and review of laboratory results Abnormal [facility] D-Dimer values of <0.50 mg/L FEU can be used in combination with a pre-test probability model (e.g. Well's) to exclude pulmonary embolism (PE) disease, as well as an aid in the diagnosis of deep vein thrombosis (DVT). [facility] Hepatic function 2000 panelo n 10-03-2023 Albumin [Mass/Vol] 3.5 g/dL 3.5 - 5.0 g/dL [facility] [employer] ALP [Catalytic activity/Vol] 64 U/L 38 - 126 U/L [facility] ALT [Catalytic activity/Vol] 16 U/L 0 - 49 U/L [facility] AST [Catalytic activity/Vol] 25 U/L 15 - 46 U/L [facility] [employer] Bilirubin [Mass/Vol] 0.7 mg/dL 0.2 - 1 .3 mg/dL [facility] Bilirubin.conjugated [Mass/Vol] 0.0 mg/dL 0.0 - 0.3 mg/dL [facility] Interpretation and review of laboratory results Normal [facility] Protein [Mass/Vol] 6.7 g/dL 6.3 - 8.2 g/dL [facility] Laboratory - Chemistry and C hemistry - challengeon 10-03-2023 Troponin I.cardiac [Mass/Vol] ng/mL NINF - 0.034 ng/mL [facility] Troponin I.cardiac [Mass/Vol] ng/mL NINF - 0.034 ng/mL [facility] Troponin I.cardiac [Mass/Vol] 0.012 ng/mL NINF - 0.034 ng/mL [facility] Laboratory - Coagulationon 0 10-03-2023 Fibrin D-dimer FEU (PPP) [Mass/Vol] 3.55 mg/L High NINF - 0.50 mg/L [facility] Laboratory - Microbiology an d Antimicrobial susceptibilityon 10-03-2023 FLUAV RNA CHRISTA+probe Ql (Resp) Not detected Not Detected [facility] FLUBV RNA CHRISTA+probe Ql (Resp) Not detected Not Detected [facility] RSV RNA CHRISTA+probe Ql (Resp) Not detected Not Detected [facility] SARS-CoV-2 (COVID-19) RNA CHRISTA+probe Ql (Resp) Not detected Not Detected [facility] SARS-CoV-2 (COVID-19) RNA CHRISTA+probe Ql (Unsp spec) Methodology: real-time, RT-PCR The SARS-CoV-2, Flu A/B, and RSV Combo assay is intended for in vitro diagnostic use under the FDA Emergency Use Authorization (EUA). This test has not been FDA cleared or approved. In compliance with this authorization, please visit www.fda.gov/media/66294 5/download or www.fda.gov/media/16340 6/download to access the applicable information sheets. [facility] Natriuretic peptide B [Mass/ Vol]on 10-03-2023 Interpretation and review of laboratory results Abnormal [facility] Natriuretic peptide B (Bld) [Mass/Vol] 777 pg/mL High <20 - 300 [facility] [employer] No Panel Informationon 10-02 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 [facility] Interpretation and review of laboratory results Normal [facility] Patients with high levels of Biotin oral intake (ie >5 mg/day) may have falsely decreased Troponin levels. [facility] Interpretation and review of laboratory results Normal [facility] Patients with high levels of Biotin oral intake (ie >5 mg/day) may have falsely decreased Troponin levels. [facility] Urinalysis complete panel (U )Ordered By: Ximena Razo on 10-03-2023 Amorphous Phosphates, Urine Few Abnormal Negative /HPF [facility] Bacteria LM.HPF (Urine sed) [#/Area] Many Abnormal Negative /HPF [facility] Bilirubin Ql (U) Negative Negative mg/dL [facility] Clarity (U) Turbid Abnormal Clear [facility] Color (U) Yellow Lt. Yellow [facility] Epithelial cells.squamous LM.HPF (Urine sed) [#/Area] 0-2 [facility] h Glucose Ql (U) Normal Normal (<70) mg/dL [facility] Hemoglobin Ql (U) 0.03 mg/dL Abnormal Negative [facility] Interpretation and review of laboratory results Abnormal [facility] Ketones (U) [Mass/Vol] Negative Negat miguelito mg/dL [facility] Leukocyte esterase Test strip Ql (U) 500 Abnormal Negative David/uL [facility] Nitrite Ql (U) Positive Abnormal Negative [facility] th pH (U) 6.5 [pH] 5.0 - 8.0 pH [facility] Protein (U) [Mass/Vol] 50 mg/dL Abnormal Negative [facility] RBC LM.HPF (Urine sed) [#/Area] 3-5 Abnormal [facility] Specific gravity (U) [Rel density] 1.018 1.005 - 1.030 [facility] Urobilinogen (U) [Mass/Vol] 3 mg/dL Abnormal Normal (0-1) [facility] Volume, Urine 8-12 mL [facility] WBC LM.HPF (Urine sed) [#/Area] /[HPF] Abnormal [facility] Vital signson 10-03-2023 Heart rate 90 /min bpm [facility] XR Chest Single viewon 10-02 Mild cardiomegaly. Report Dictated on Electronically Signed By: Danisha Valentin MD Electronically Signed Date/Time: 10/03/2023 11:11 AM EDT [facility] Patient Name: CIRO SALES : 1935 Exam Date/Time: 10/03/2023 11:10 Procedure: XR CHEST 1 VIEW Ordering Provider: SCHMITZ KEVIN Reason For Exam: DYSPNEA EXAMINATION: Portable chest INDICATION: DYSPNEA FINDINGS: There is no focal consolidation, sizable pleural effusion or pneumothorax. Mild volume loss of the right hemithorax noted. There is mild elevation of the right hemidiaphragm. Mild coarsening of interstitium is likely chronic. The cardiac silhouette is mildly enlarged. There is moderate calcification of the thoracic aorta. Small to moderate osteophytes of the spine are present at multiple levels. Left shoulder osteoarthritis present. [facility] Danisha Valentin MD - 10/03/2023 Patient Name: CIRO SALES : 1935 Exam Date/Time: 10/03/2023 11:10 Procedure: XR CHEST 1 VIEW Ordering Provider: SCHMITZ KEVIN Reason For Exam: DYSPNEA EXAMINATION: Portable chest INDICATION: DYSPNEA FINDINGS: There is no focal consolidation, sizable pleural effusion or pneumothorax. Mild volume loss of the right hemithorax noted. There is mild elevation of the right hemidiaphragm. Mild coarsening of interstitium is likely chronic. The cardiac silhouette is mildly enlarged. There is moderate calcification of the thoracic aorta. Small to moderate osteophytes of the spine are present at multiple levels. Left shoulder osteoarthritis present. IMPRESSION: Mild cardiomegaly. Report Dictated on Electronically Signed By: Danisha Valentin MD Electronically Signed Date/Time: 10/03/2023 11:11 AM EDT [facility] Radiology Study observation (narrative) Kj cortes XR Chest Single viewOrdered By: Danisha Valentin on 10-03-2023 [facility]R Chest 2 Viewson 4 Chronic appearing interstitial changes. No focal consolidation is identified within the lungs. Report Dictated on Electronically Signed By: Andres Encarnacion MD Electronically Signed Date/Time: 10/02/2023 6:18 PM EDT [employer] [facility] Patient Name: CIRO SALES : 1935 Exam Date/Time: 10/02/2023 12:11 Procedure: XR CHEST 2 VIEWS Ordering Provider: FINCH BRANDY Reason For Exam: PREOPERATIVE ANESTHESIA CHEST X-RAY PA/LATERAL CLINICAL INDICATION: PREOPERATIVE ANESTHESIA Frontal and lateral plain films of the chest were obtained. COMPARISON: 10/04/2022 FINDINGS: The cardiac silhouette is within normal limits. Coarsening of the interstitial lung markings is noted, likely chronic. No focal consolidation is seen within the lungs. No pleural effusion or pneumothorax is identified. There are degenerative changes of the thoracic spine. [facility] Andres Encarnacion MD - 10/02/2023 Patient Name: CIRO SALES : 1935 Exam Date/Time: 10/02/2023 12:11 Procedure: XR CHEST 2 VIEWS Ordering Provider: FINCH BRANDY Reason For Exam: PREOPERATIVE ANESTHESIA CHEST X-RAY PA/LATERAL CLINICAL INDICATION: PREOPERATIVE ANESTHESIA Frontal and lateral plain films of the chest were obtained. COMPARISON: 10/04/2022 FINDINGS: The cardiac silhouette is within normal limits. Coarsening of the interstitial lung markings is noted, likely chronic. No focal consolidation is seen within the lungs. No pleural effusion or pneumothorax is identified. There are degenerative changes of the thoracic spine. IMPRESSION: Chronic appearing interstitial changes. No focal consolidation is identified within the lungs. Report Dictated on Electronically Signed By: Andres Encarnacion MD Electronically Signed Date/Time: 10/02/2023 6:18 PM EDT [facility] Radiology Study observation (narrative) [facility] XR Chest 2 ViewsOrdered By: Andres Encarnacion on 10-02-2023 [facility] [employer] SOCIAL WORKon 08-18-2023 SOCIAL WORK HNO ID: [id number] Author: TAMMY COURTNEY LSW Service: Social Work Author Type: Morgue Keeper Type: Social Work Filed: 08/21/2023 15:56 Note Text: Summary: Post DC Note SOCIAL WORK PROGRESS NOTE Name: Ciro Sales Phone call from patient's Manju. [facility] (DC 08/17) Phoned Kj/Cassie. She will check with intake and call me within the hour. Phoned Manju to relay this. Patient had appt on 08/18 and has one today. Hoping for start of care on 08/21. SW to let know when Kj calls back. 1426: Have not heard back from Cassie. Phoned again [phone] and the person answering for multiple agencies could not find patient's record and did not know who Cassie is. Phoned Aure Flores at [phone]. She will check start of care and call MICHAEL back. 1510: Aure called back/left messagestating there was a miscommunication and she will call patient's now re: visits. Signature: ANTHONY Rodriguez Date: August 21, 2023 Time: 9:29 AM Normal [facility] SOCIAL WORK HNO ID: [id number] Author: TAMMY COURTNEY LSW Service: Social Work Author Type: Morgue Keeper Type: Social Work Filed: 08/18/2023 08:50 Note Text: Summary: MICHAEL rounding/DC SOCIAL WORK PROGRESS NOTE Name: Ciro Sales Provided patient with contact info for [facility]. Patient asking several questions about what to do if he's not doing well at home, doses of meds, etc. MICHAEL addressed questions and assured patient he would receive a medication list and nurse will go over each med/dose. Signature: ANTHONY Rodriguez Date: August 18, 2023 Time: 8:50 AM Normal [facility] THERAPY NTon 08-18-2023 THERAPY NT HNO ID: [id number] Author: GLENDY DONOVAN, PT Service: Physical Therapy Author Type: Physical Therapist Type: Therapy (PT/OT/Speech/Resp) Filed: 08/18/2023 15:05 Note Text: Summary: PT Discharge Note Physical Therapy Assisted Facility Treatment Summary SERVICE DATE: 08/18/2023 SERVICE TIME: 1120 to 1205 ROOM: [place] [id number] PT 6 Clicks Score: 23 DISCHARGE RECOMMENDATIONS Home PT Recommended Discharge Disposition Comments: Home PT with 11/11 supervision and assist from spouse and PRN from children as needed followed by outpatient therapy Anticipated Discharge Needs: Family Training, Physical Assist at Home, Supervision at Home, Equipment, Home Modifications Recommended Discharge Equipment: Commode-3 in 1, Hand Held Shower, Wheeled Walker, To Be Determined (B HRs to enter home) GOALS Patient will demonstrate progress with functional mobility to allow safe discharge to home with available support and/or physical assistance. Able to Perform HEP with: Independent Transfer Sit to/from Stand with: Modified Independent Ambulate with: Stand By Assistance Distance: 150+ Device: Wheeled Walker Ambulate Up and Down Steps with: Contact Guard Assistance Number of Steps: 4 Device: Rail ROM: BLE strength to WFL Goal: 10 MWT walking speed to at least 0.75 m/s Rehab Potential: Good Progress Toward Goals: Progressing as expected ASSESSMENT Response to Therapy Interventions: On-Track to Achieve Discharge Goals PT initial goals met or nearly met. Requires SBA to CGA for safety with ambulation and stair management. Patient tendency to lean on walker and may not be appropriate for use of Rollator at this time. Had difficulty maintaining stability of Rollator on hard mendel. May do better at home with carpeted surfaces. Home PT to continue with patient to assess in home mobility, progress mobility and strength, reinforce proper body mechanics for post spinal fusion. Plan for Next Visit: Gait Training, Stair Training, Standing Tolerance PRECAUTIONS Fall Risk L-2-3-4-5 laminectomy with L4-5 posterior fusion, no back brace, lopez, no BLT, resting tremor, [place] SUBJECTIVE Patient perferring to hold off on purchasing FWW as he has a Rollator at home. Requesting prescription for walker should he choose to purchase one later. FUNCTIONAL STATUS Bed Mobility Rolling: Modified Independent Supine To Sit: Supervision Sit to Supine: Supervision Scooting: Stand By Assistance Transfers Sit To Stand: Stand By Assistance Stand To Sit: Stand By Assistance Bed to Chair Contact Guard Assistance Bed To Chair Transfer Type: Stepping Bed To Chair Transfer Equipment: Wheeled Walker Gait Stand By Assistance attempted with Rollator, patient did not like the feel of the swivel whhels. States his rollator at home has smaller wheels and feels more stable. Gait Device: Rollator, Wheeled Walker Gait Distance (feet): 200+ Stairs Stand By Assistance Stairs Device: Rail (bilateral) Number of Stairs: 8 CURRENT HOSPITAL COURSE Patient is an 88 year old male presenting to [facility] s/p elective L2-3-4-5 laminectomy and L4-5 posterior fusion on 07/30 at [facility] with Dr. Rhodes after diagnosis of lumbar spondylosis and stenosis. Uneventful post-op course. Patient now presents below baseline level of function and can benefit from skilled services to facilitate return to home setting. Relevant Past Medical History: Lumbar stenosis and spondylosis HOME LIVING Patient Lives With: Spouse (1 story home with basement) Assistance Available: 24-Hour (spouse is retired, 4 children that live locally) Entry To Home: Stairs, With Rail Number Of Stairs Into Home: 4 (3 steps plus threshold, 1 HR) Number Of Stairs To Bed/Bath: 0 (ranch home) Tub/Shower Type: Tub/shower combo, grab bars, stands to shower, shower chair Laundry: Spouse performs, main floor Equipment Owned: Rollator, Grab Bars- Shower, Shower Chair, Commode- Raised PRIOR FUNCTIONAL LEVEL Within Functional Limits, Required Assistance, History of Falls Assistance Required With: Laundry, Cleaning, Meals Patient reports ind with ambulation without AD. One fall noted on a ship. 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 Performs own med mgmt. Was sleeping a recliner x 2 months. Has hearing aides but does not like them. 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 THERAPY DIAGNOSIS Reduced mobility-other, Muscle Weakness (generalized), Abnormalities of gait and mobility-other, Difficulty walking-musculoskeletal TREATMENT INTERVE (more content not included)... Normal [facility] THERAPY NT HNO ID: [id number] Author: CHIQUIS MTZ OTR/Leeroy Service: Occupational Therapy Author Type: Occupational Therapist Type: Therapy (PT/OT/Speech/Resp) Filed: 08/18/2023 12:18 Note Text: Summary: OT Discharge Note Occupational Therapy Assisted Facility Treatment Summary and Discharge Note SERVICE DATE: 08/18/2023 SERVICE TIME: 1015 to 1055 ROOM: [place] [address] OT 6 Clicks Score: 21 DISCHARGE RECOMMENDATIONS Discharge Therapy Services Discharged (date): 08/18/23 Discharged To: Home Ability To Apply Precautions Upon Discharge: Requires Cues Equipment Issued: Long Sponge Home OT Recommended Discharge Disposition Comments: Pt is expected to return home with supportive family to provide 24/ assistance as needed and home health to follow for continued OT Anticipated Discharge Needs: Family Training, Physical Assist at Home, Supervision at Home, Equipment, Home Modifications Recommended Discharge Equipment: ADL Kit, Commode-3 in 1, Wheeled Walker, Walker bag/basket, Shower Chair (shower chair vs, extended tub bench with home therapist to further assess.) GOALS Patient will demonstrate progress with self-care, cognitive and/or coping needs identified to allow safe discharge to home with available support and/or physical assistance.:Met Lower Body Bathing with: Stand By Assistance: Not met Lower Body Dressing with: Stand By Assistance: Not met Toilet Hygiene with: Minimal Assistance: Met Chair Transfer with: Stand By Assistance: Not met Toilet Transfer with: Stand By Assistance: Met Tub Transfer with: Minimal Assistance: Met Tolerate (minutes of functional activity): 50: Met Functional Activity with: Stand By Assistance : Not met Progress Toward Goals: Progressing as expected Rehab Potential: Good ASSESSMENT Response to Therapy Interventions: Cognitive Deficits, Good Participation in Activities, Improved Tolerance for Activity, Needs Frequent Redirection or Reinstruction, Requires Additional Time to Complete Activities This 88 year old patient has made good progress in all areas addressed by OT during his course of inpatient rehab s/p spinal surgery. Pt did not meet all OT goals mainly due to issues with cognition and decreased investment of pt into using alternative methods of completing ADL tasks with pt stating his spouse would do these tasks for him. Family has been instructed in amount/type of assistance pt requires for ADLIADLs and functional mobility skills re: ADLs. Equipment recommendations have been made and handouts provided. Contacted pt's dtr Serena by phone today and reviewed all discharge instructions as well as anwering questions that family may have. Pt is being discharged home with spouse today and he will have home health services upon discharge including Nursing, OT, PT, and DENTISTRY TEACHER. See below for specifics. Plan for Next Visit: (N/A due to discharge home today) PRECAUTIONS Fall Risk L-2-3-4-5 laminectomy with L4-5 posterior fusion, no back brace, lopez, no BLT, resting tremor, [place] SUBJECTIVE Pt commented frequently on his concern re: the lopez catheter FUNCTIONAL STATUS Activities of Daily Living Assist Level Additional Information Feeding Independent, Set Up Grooming Set Up (while seated) Bathing Upper Body Verbal Cues Only, Additional Information Bathing Lower Body Minimal Assistance Dressing Upper Body Modified Independent Dressing Lower Body Minimal Assistance, Additional Information pt not invested in use of AE for lower body ADLs, stating his spouse would complete for him. Verbal cues needed for use of AE for dressing tasks; minimal assist for shoes.Assist to manage catheter tubing through briefs/pants. Discussed pt's current status in this area with pt's dtr by phone today Toileting Stand By Assistance, Additional Information SBA for hygiene to posterior after BM; pt using commode frame over toilet in bathroom Instrumental Activities of Daily Living Assist Level Additional Information Meal/Beverage Prep Total Assistance Cleaning Total Assistance Laundry Total Assistance Medication Management with Strategies Mobility Assist Level Additional Information Bed Mobility Supine To Sit: Independent flat bed, no rail Sit To Supine: Independent, Additional Information flat bed, no rail Sit to Stand Supervision improved hand placement Stand to Sit Stand By Assistance improved hand placement Bed to Chair Contact Guard Assistance Bed To Chair Transfer Type: Stepping Bed To Chair Transfer Equipment: Wheeled Walker, Gait Belt Toilet/Commode Supervision using commode frame over toilet in bathroom Shower Contact Guard Assistance Functional Mobility Stand By Assistance Functional Mobility Device: Wheeled Walker CURRENT HOSPITAL COURSE Patient is an 88 y (more content not included)... Normal [facility] C diff Tox gens Stl Ql CHRISTA+p robeon 08-17-2023 C. difficile toxin genes CHRISTA+probe Ql (Stl) Negative Normal Negative for C. difficile toxin by PCR [facility] Comment on above: Order Comment: Speci men Type: STOOL SPECIMEN Ordering Facility: [facility] Address: [address] [place] [address] Performed By: #### 5 4067-4 #### [facility] [id number] [address] [place] [address] STATES OF [facility] CNDSon 08-17-2023 CNDS HNO ID: [id number] Author: MARY CHAVEZ MD Service: Hospital Medicine Author Type: Nurse Practitioner Type: Discharge Summary Filed: 08/19/2023 23:32 Note Text: Attestation signed by Mary Chavez MD at 08/19/2023 11:32 PM Attending Note I have personally reviewed the PA/PROGRESSIVE ASSEMBLER AND FITTER note. Agree with above assessment and plan. Other additions or changes: None SIGNATURE: Mary Chavez MD DATE: August 19, 2023 TIME: 11:32 PM DISCHARGE SUMMARY PATIENT NAME: Ciro Sales ADMISSION DATE: 08/05/2023 DISCHARGE DATE: 08/18/2023 ATTENDING PHYSICIAN: Mary Chavez MD Code Status: Full Code Highest Readmission Risk Score: 12 The 30 day readmissions risk score is derived from an internally validated risk model which evaluates patient level characteristics, utilization history, medication orders and lab results up until the day of discharge. Patients with a score of 40 or above are considered highest risk for readmission. Specific patient level drivers will be listed at the bottom of the summary. CONSULTING TEAMS DURING HOSPITALIZATION: None Treatment Team: Attending Provider: Mary Chavez MD REASON FOR HOSPITALIZATION: Aftercare and rehab services DIAGNOSIS: Principal Problem: Aftercare (POA: Yes) Active Problems: Low back pain (POA: Yes) HTN (hypertension) (POA: Yes) S/P laminectomy (POA: Yes) Urinary retention (POA: Yes) Obesity, Class I, BMI 30-34.9 (POA: Yes) Constipation (POA: Yes) Spinal stenosis (POA: Yes) Renal insufficiency (POA: Yes) Resolved Problems: * No resolved hospital problems. * OPERATIONS DURING HOSPITALIZATION: None PROCEDURES DURING HOSPITALIZATION: No procedures performed HOSPITAL COURSE: Ciro Sales is a 88 year old male with PMH BCC, elevated PSA, HTN, OAB, spinal stenosis was admitted to [facility] on 07/31/2023 for lumbar laminectomy. Post-op course was complicated by urinary retention. Patient failed voiding trial and was DCd with lopez. Flomax was started and Oxybutynin was stopped. Urology appointment scheduled for 08/18. Post-op recs were vitamin D and Calcium. Do not lift over 10 pounds for 4 weeks. Post-op appointment done 08/12 and sutures removed at that time. PT/OT recommended SNF, [facility]. Progressed well with rehab plan and is now being discharged to home. Ciro was treated for the follwoing Principal Problem: Aftercare - Hospitalization Dates: 07/31/2023-08/05/2023 - Hospitalization Diagnosis: Spinal stenosis - Discharge Facility[facility] - PT/OT Consult - Nutrition Consult - Case Management Consult for Discharge Planning - Pain Control: scheduled tylenol; PRN oxycodone/Zanalfex - DVT Prophylaxis: early ambulation - PT/OT Restrictions: no lifting over 10 pounds for 4 weeks - Current Living Situation: home with - Code Status: FULL CODE Low back pain Spinal stenosis S/P laminectomy Lumbar laminectomy on 07/31/2023 Scheduled tylenol and PRN oxycodone/Zanaflex Lidocaine patches to back Vitamin D and Calcium for wound healing Bowel regimen No lifting greater than 10 pounds for 4 weeks Limit twisting, turning, and bending motions at the waist Sutures removed Urinary retention S/p lopez placement with failed voiding trial Stopped Oxybutynin Continue tamsulosin Failed voiding trial again Lopez had to be replaced Discharge with lopez Follow-up with urology as scheduled HTN (hypertension) Valsartan increased to 80mg daily Obesity, Class I, BMI 30-34.9 BMI 31.89 Lifestyle modification counseling Constipation RESOLVED Bowel regimen now PRN due to diarrhea Anemia H/H stable Iron level 31 Started on ferrous sulfate No overt bleeding 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 Valsartan increased to 80mg daily; LABS AND PROCEDURES PENDING AT DISCHARGE: No pending results. PATIENT CONDITION AT DISCHARGE: Stable DISCHARGE DISPOSITION: Home with Home Health Discharge Physical Exam: VITAL SIGNS: BP 167/82 Pulse 86 Temp 36.5 ?C (97.7 ?F) (Oral) Resp 16 Ht 177.8 cm (5' 10) Wt 100.8 kg (222 lb 3.6 oz) SpO2 92% BMI 31.89 kg/m? Constitutional: General: He is not in acute distress. Appearance: He is normal weight. He is not toxic-appearing. HENT: Head: Normocephalic and atraumatic. Nose: Nose normal. Mouth/Throat: Mouth: Mucous membranes are moist. Pharynx: Oropharynx is clear. Cardiovascular: Rate and Rhythm: Regular rhythm. Pulse (more content not included)... Normal [facility] FECAL LACTOFERRIN/LEUKOCYTES on 08-17-2023 Lactoferrin IA Ql (Stl) Negative for lactoferrin, which may indicate the absence of fecal white blood cells Normal Negative [facility] Comment on above: Order Comment: Speci men Type: STOOL SPECIMEN Ordering Facility: [facility] Address: [address] [place] [address] Performed By: #### F ECWBC #### [facility] CLIA [id number] OF [facility] G lamblia+Cryptosp Ag Stl Ql IAon 08-17-2023 G. lamblia+Cryptosporidium sp Ag IA Ql (Stl) CRYPTOSPORIDIUM ANTIGEN BY EIA: Negative for Cryptosporidium by EIA. GIARDIA ANTIGEN BY EIA: Negative for Giardia lamblia by EIA. Normal [facility] Comment on above: Performed By: #### 4 8059-0 ####[facility] [id number] [address] OF [place] Gastrointestinal pathogens i dentified CHRISTA+probe Nom (Stl)on 08-17-2023 Campylobacter sp DNA CHRISTA+probe Nom (Unsp spec) Not detected Normal Not Detected [facility] Comment on above: Order Comment: Speci men Type: STOOL SPECIMEN Ordering Facility: [facility] Address: [address] [place] [address] Performed By: #### 7 9390-1 #### [facility] CLIA [id number] [address] [place] [address] [place] Salmonella sp DNA CHRISTA+probe Ql (Unsp spec) Not detected Normal Not Detected [facility] Comment on above: Order Comment: Speci men Type: STOOL SPECIMEN Ordering Facility: [facility] Address: [address] [place] [address] Performed By: #### 7 9390-1 #### [facility] CLIA [id number] [address] [place] [address] [place] Shiga toxin stx gene CHRISTA+probe Nom (Unsp spec) Not detected Normal Not Detected [facility] Comment on above: Order Comment: Speci men Type: STOOL SPECIMEN Ordering Facility: [facility] Address: [address] [place] [address] Performed By: #### 7 9390-1 #### [facility] CLIA [id number] [address] [place] [address] STATES [place] Shigella sp DNA CHRISTA+probe Ql (Unsp spec) Not detected Normal Not Detected [facility] Comment on above: Order Comment: Speci men Type: STOOL SPECIMEN Ordering Facility: [facility] Address: [address] [place] [address] Performed By: #### 7 9390-1 #### [facility] CLIA [id number] [address] [place] [address] [place] NURSING PROGon 08-17-2023 NURSING PROG HNO ID: [id number] Author: ATUL DRISCOLL, RN Service: Nursing Author Type: Registered Nurse Type: Nursing Progress Note Filed: 08/17/2023 12:15 Note Text: Received Fax from [employer] this AM stating the physician reviewer agrees with termination of services. Spoke to pt and (at bedside) about appeal being denied. They are planning on D/C on Friday08/18/23 after lunch. Normal [facility] NURSING PROGon 08-16-2023 NURSING PROG HNO ID: [id number] Author: ATUL DRISCOLL, RN Service: Nursing Author Type: Registered Nurse Type: Nursing Progress Note Filed: 08/16/2023 17:25 Note Text: Received Insurance Appeal request from [employer]. Requested documentation faxed to [employer] today @ 1100. [employer] called to request signed NOMNC to be faxed. NOMNC faxed to [employer] @ [phone] today as requested. Normal [facility] THERAPY NTon 08-16-2023 THERAPY NT HNO ID: [id number] Author: YULIYA CAMERON, PT Service: Physical Therapy Author Type: Regional Account Executive Type: Therapy (PT/OT/Speech/Resp) Filed: 08/16/2023 17:16 Note Text: Attestation signed by Yuliya Cameron, PT at 08/16/2023 5:16 PM I reviewed and agree with the documentation corresponding to this therapy visit. SIGNATURE: Yuliya Cameron PT DATE: August 16, 2023 TIME: 5:16 PM Physical Therapy Assisted Facility Treatment Summary SERVICE DATE: 08/16/2023 SERVICE TIME: 1025 to 1107 ROOM: [place] [address] PT 6 Clicks Score: 23 DISCHARGE RECOMMENDATIONS Home PT Recommended Discharge Disposition Comments: Home PT with 11/11 supervision and assist from spouse and PRN from children as needed followed by outpatient therapy Anticipated Discharge Needs: Family Training, Physical Assist at Home, Supervision at Home, Equipment, Home Modifications Recommended Discharge Equipment: Commode-3 in 1, Hand Held Shower, Wheeled Walker, To Be Determined (B HRs to enter home) GOALS Patient will demonstrate progress with functional mobility to allow safe discharge to home with available support and/or physical assistance. Able to Perform HEP with: Independent Transfer Sit to/from Stand with: Modified Independent Ambulate with: Stand By Assistance Distance: 150+ Device: Wheeled Walker Ambulate Up and Down Steps with: Contact Guard Assistance Number of Steps: 4 Device: Rail ROM: BLE strength to WFL Goal: 10 MWT walking speed to at least 0.75 m/s Rehab Potential: Good Progress Toward Goals: Progressing as expected ASSESSMENT Response to Therapy Interventions: Good Participation in Activities Patinet completes to complete all exercise with good tolerance and minimal fatigue. Plan for Next Visit: Gait Training, Stair Training, Standing Tolerance PRECAUTIONS Fall Risk L-2-3-4-5 laminectomy with L4-5 posterior fusion, no back brace, lopez, no BLT, resting tremor, [place] SUBJECTIVE Theres gotta be something they can give me for my head FUNCTIONAL STATUS Bed Mobility Rolling: Modified Independent Supine To Sit: Supervision Sit to Supine: Supervision Scooting: Stand By Assistance Transfers Sit To Stand: Stand By Assistance Stand To Sit: Stand By Assistance Bed to Chair Contact Guard Assistance Bed To Chair Transfer Type: Stepping Bed To Chair Transfer Equipment: Wheeled Walker Gait Stand By Assistance Gait Device: Wheeled Walker General Deviations/Observations : Flexed trunk posture, Improper distancing from assistive device Gait Distance (feet): 200+ Stairs Stand By Assistance Stairs Device: Rail (bilateral) Number of Stairs: 8 CURRENT HOSPITAL COURSE Patient is an 88 year old male presenting to [facility] s/p elective L2-3-4-5 laminectomy and L4-5 posterior fusion on 07/30 at [facility] with Dr. Rhodes after diagnosis of lumbar spondylosis and stenosis. Uneventful post-op course. Patient now presents below baseline level of function and can benefit from skilled services to facilitate return to home setting. Relevant Past Medical History: Lumbar stenosis and spondylosis HOME LIVING Patient Lives With: Spouse (1 story home with basement) Assistance Available: 24-Hour (spouse is retired, 4 children that live locally) Entry To Home: Stairs, With Rail Number Of Stairs Into Home: 4 (3 steps plus threshold, 1 HR) Number Of Stairs To Bed/Bath: 0 (ranch home) Tub/Shower Type: Tub/shower combo, grab bars, stands to shower, shower chair Laundry: Spouse performs, main floor Equipment Owned: Rollator, Grab Bars- Shower, Shower Chair, Commode- Raised PRIOR FUNCTIONAL LEVEL Within Functional Limits, Required Assistance, History of Falls Assistance Required With: Laundry, Cleaning, Meals Patient reports ind with ambulation without AD. One fall noted on a ship. 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 Performs own med mgmt. Was sleeping a recliner x 2 months. Has hearing aides but does not like them. 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 THERAPY DIAGNOSIS Reduced mobility-other, Muscle Weakness (generalized), Abnormalities of gait and mobility-other, Difficulty walking-musculoskeletal TREATMENT INTERVENTIONS Therapeutic Exercise (32641), Therapeutic Activity (48682), Gait Training (06597) Timed Code Treatment (minutes): 40 Skilled Treatment Time (minutes): 40 EXERCISE Exercises Exercise: standing june x20, standing hip abduction x10, standing hamstring curl x10, lateral stepping TRAINING AND EDUCATION PROVIDED Benefits of In (more content not included)... Normal [facility] SOCIAL WORKon 08-15-2023 SOCIAL WORK HNO ID: [id number] Author: TAMMY COURTNEY LSW Service: Social Work Author Type: Morgue Keeper Type: Social Work Filed: 08/15/2023 17:57 Note Text: Summary: [facility] SOCIAL WORK PROGRESS NOTE Name: Ciro Sales Received NOMNC with LCD of 08/16. Patient signed and called family. Yobany plans to mariana to appeal. NOMNC emailed to Lisa/Lakshmi as well as faxed to [phone] and [phone]. Signature: ANTHONY Rodriguez Date: August 15, 2023 Time: 5:42 PM [facility] SOCIAL WORK HNO ID: [id number] Author: TAMMY COURTNEY LSW Service: Social Work Author Type: Morgue Keeper Type: Social Work Filed: 08/15/2023 09:35 Note Text: Summary: Family Call SOCIAL WORK PROGRESS NOTE Name: Ciro Sales Phoned patient's daughter Serena to relay that patient's lopez had to be reinserted. Serena saying that if staff feels patient is ready to go, she is fine with discharge any time. She knows patient is concerned about lopez.Told her that staff is hoping that insurance will give patient until 08/18 so [facility] and then [facility]. Daughter agreeable to that. Signature: ANTHONY Rodriguez Date: August 15, 2023 Time: 9:31 AM [facility] THERAPY NTon 08-15-2023 THERAPY NT HNO ID: [id number] Author: GLENDY DONOVAN PT Service: Physical Therapy Author Type: Regional Account Executive Type: Therapy (PT/OT/Speech/Resp) Filed: 08/15/2023 16:26 Note Text: Attestation signed by Glendy Donovan, PT at 08/15/2023 4:26 PM I reviewed and agree with the documentation corresponding to this therapy visit. SIGNATURE: Glendy Donovan PT DATE: August 15, 2023 TIME: 4:26 PM Physical Therapy Assisted Facility Treatment Summary SERVICE DATE: 08/15/2023 SERVICE TIME: 1419 to 1525 ROOM: [place] [address] PT 6 Clicks Score: 22 DISCHARGE RECOMMENDATIONS Home PT Recommended Discharge Disposition Comments: Home PT with 11/11 supervision and assist from spouse and PRN from children as needed followed by outpatient therapy Anticipated Discharge Needs: Family Training, Physical Assist at Home, Supervision at Home, Equipment, Home Modifications Recommended Discharge Equipment: Commode-3 in 1, Hand Held Shower, Wheeled Walker, To Be Determined (B HRs to enter home) GOALS Patient will demonstrate progress with functional mobility to allow safe discharge to home with available support and/or physical assistance. Able to Perform HEP with: Independent Transfer Sit to/from Stand with: Modified Independent Ambulate with: Stand By Assistance Distance: 150+ Device: Wheeled Walker Ambulate Up and Down Steps with: Contact Guard Assistance Number of Steps: 4 Device: Rail ROM: BLE strength to WFL Goal: 10 MWT walking speed to at least 0.75 m/s Rehab Potential: Good Progress Toward Goals: Progressing as expected ASSESSMENT Response to Therapy Interventions: Good Participation in Activities Patient complees all exercise with minimum faigue. Plan for Next Visit: Gait Training, Stair Training, Standing Tolerance PRECAUTIONS Fall Risk L-2-3-4-5 laminectomy with L4-5 posterior fusion, no back brace, lopez, no BLT, resting tremor, [place] SUBJECTIVE I need that cream on my back FUNCTIONAL STATUS Bed Mobility Rolling: Modified Independent Supine To Sit: Supervision Sit to Supine: Supervision Scooting: Stand By Assistance Transfers Sit To Stand: Stand By Assistance Stand To Sit: Stand By Assistance Bed to Chair Contact Guard Assistance Bed To Chair Transfer Type: Stepping Bed To Chair Transfer Equipment: Wheeled Walker Gait Stand By Assistance, Contact Guard Assistance (CGA with no AD) Gait Device: Wheeled Walker, None General Deviations/Observations : Flexed trunk posture, Cynthia decreased, Improper distancing from assistive device Gait Distance (feet): 200+; 15 (15 without AD) Stairs Contact Guard Assistance Stairs Device: Rail (right ascending handrail) Number of Stairs: 16 CURRENT HOSPITAL COURSE Patient is an 88 year old male presenting to [facility] s/p elective L2-3-4-5 laminectomy and L4-5 posterior fusion on 07/30 at [facility] with Dr. Rhodes after diagnosis of lumbar spondylosis and stenosis. Uneventful post-op course. Patient now presents below baseline level of function and can benefit from skilled services to facilitate return to home setting. Relevant Past Medical History: Lumbar stenosis and spondylosis HOME LIVING Patient Lives With: Spouse (1 story home with basement) Assistance Available: 24-Hour (spouse is retired, 4 children that live locally) Entry To Home: Stairs, With Rail Number Of Stairs Into Home: 4 (3 steps plus threshold, 1 HR) Number Of Stairs To Bed/Bath: 0 (ranch home) Tub/Shower Type: Tub/shower combo, grab bars, stands to shower, shower chair Laundry: Spouse performs, main floor Equipment Owned: Rollator, Grab Bars- Shower, Shower Chair, Commode- Raised PRIOR FUNCTIONAL LEVEL Within Functional Limits, Required Assistance, History of Falls Assistance Required With: Laundry, Cleaning, Meals Patient reports ind with ambulation without AD. One fall noted on a ship. 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 Performs own med mgmt. Was sleeping a recliner x 2 months. Has hearing aides but does not like them. 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 THERAPY DIAGNOSIS Reduced mobility-other, Muscle Weakness (generalized), Abnormalities of gait and mobility-other, Difficulty walking-musculoskeletal TREATMENT INTERVENTIONS Therapeutic Exercise (73461), Therapeutic Activity (64273), Gait Training (11377) Timed Code Treatment (minutes): 63 Skilled Treatment Time (minutes): 63 EXERCISE Exercises Exercise: seated march green T-band x20, seated hip abduction green T-band x20, hip adduction green T-b (more content not included)... [facility] THERAPY NT HNO ID: [id number] Author: KERRI DOUGHERTY OTR/Leeroy Service: Occupational Therapy Author Type: Occupational Therapist Type: Therapy (PT/OT/Speech/Resp) Filed: 08/15/2023 11:38 Note Text: Summary: OT insurance update Occupational Therapy Assisted Facility Treatment SERVICE DATE: 08/15/2023 SERVICE TIME: 1035 to 1125 ROOM: [place] [address] Recommended Discharge Disposition: Home OT Recommended Discharge Disposition Comments: Pt is expected to return home with supportive family to provide 24/7 assistance as needed and home health to follow for continued OT Anticipated Discharge Needs: Family Training, Physical Assist at Home, Supervision at Home, Equipment, Home Modifications Recommended Discharge Equipment: Commode-3 in 1, ADL Kit, Hand Held Shower, Long Handled Sponge, Wheeled Walker, To Be Determined OT 6 Clicks Score: 21 Precautions/Activity Restrictions: Fall Risk Precaution/Activity Restriction Comments: L-2-3-4-5 laminectomy with L4-5 posterior fusion, no back brace, lopez, no BLT, resting tremor, [place] Isolation Type: None Current Hospital Course: Patient is an 88 year old male presenting to [facility] s/p elective L2-3-4-5 laminectomy and L4-5 posterior fusion on 07/30 at [facility] with Dr. Rhodes after diagnosis of lumbar spondylosis and stenosis. Uneventful post-op course. Patient now presents below baseline level of function and can benefit from skilled services to facilitate return to home setting. Relevant Past Medical History: Lumbar stenosis and spondylosis Response to Therapy Interventions: Good Participation in Activities, Needs Frequent Redirection or Reinstruction, Requires Encouragement to Complete Activities Assessment Comments: Pt completing shower level ADL this date; pt requiring encouragement for independence; pt requesting assist for many aspects of ADLS; he is improving with transfers and mobility but will likely require assist with lopez management, LB ADLS, toileting and IADLS; pt would benefit from cont. therapy services to ensure safety and independence with exptected d/c by 08/19 Treatment Interventions: Education, Self Care/Home Management, Energy Conservation Training, Strengthening, Functional Mobility Training, Balance Training Home Environment Patient Lives With: Spouse (1 story home with basement) Assistance Available: 24-Hour (spouse is retired, 4 children that live locally) Entry To Home: Stairs, With Rail Number Of Stairs Into Home: 4 (3 steps plus threshold, 1 HR) Number Of Stairs To Bed/Bath: 0 (ranch home) Tub/Shower Type: Tub/shower combo, grab bars, stands to shower, shower chair Laundry: Spouse performs, main floor Equipment Owned: Rollator, Grab Bars- Shower, Shower Chair, Commode- Raised Prior Functional Level: Within Functional Limits, Required Assistance, History of Falls Assistance Required With: Laundry, Cleaning, Meals Prior Functional Level Comments: Patient reports ind with ambulation without AD. One fall noted on a ship. 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 Performs own med mgmt. Was sleeping a recliner x 2 months. Has hearing aides but does not like them. 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; worked at [employer] in the [place] Highest Level of Education: (not reported) Occupational Factors Life Roles: Spouse/Significant Other, Family Member, Retired Identified Strengths for Life Roles: Good Support System, Involvement in Hobbies/Leisure Activities, Positive Coping Strategies, Effective Communication Skills, Motivation Identified Barriers for Life Roles: Difficulty with ADLs/IADLs, Fear/Anxiety, Fatigue/Endurance, Medical Acuity/Chronic Condition Subjective: pt requesting shower; reports having rough night because of the catheter CURRENT FUNCTIONAL STATUS: Most recent performance Current Activities of Daily Living Assist Level Additional Information Feeding Independent, Set Up Grooming Set Up (while seated) Bathing Upper Body Verbal Cues Only, Additional Information shower level - assist for back, V/Cs throughout for sequencing as pt would forget soap or to rinse. encouragement for thoroughness independntly; assist for back Bathing Lower Body Minimal Assistance shower level - shower chair, HHSH, grab bars in use. Pt able to bathe all aspects but buttocks (medial portions) with use of LHS for distal portions of BLEs. V/Cs throu (more content not included)... Normal [facility] THERAPY NT HNO ID: [id number] Author: GLENDY DONOVAN PT Service: Physical Therapy Author Type: Regional Account Executive Type: Therapy (PT/OT/Speech/Resp) Filed: 08/15/2023 10:30 Note Text: Attestation signed by Glendy Donovan PT at 08/15/2023 10:30 AM I reviewed and agree with the documentation corresponding to this therapy visit. SIGNATURE: Glendy Donovan PT DATE: August 15, 2023 TIME: 10:30 AM Physical Therapy Assisted Facility Treatment Summary SERVICE DATE: 08/15/2023 SERVICE TIME: 843 to 915 ROOM: [place] [address] PT 6 Clicks Score: 22 DISCHARGE RECOMMENDATIONS Home PT Recommended Discharge Disposition Comments: Home PT with 11/11 supervision and assist from spouse and PRN from children as needed followed by outpatient therapy Anticipated Discharge Needs: Family Training, Physical Assist at Home, Supervision at Home, Equipment, Home Modifications Recommended Discharge Equipment: Commode-3 in 1, Hand Held Shower, Wheeled Walker, To Be Determined (B HRs to enter home) GOALS Patient will demonstrate progress with functional mobility to allow safe discharge to home with available support and/or physical assistance. Able to Perform HEP with: Independent Transfer Sit to/from Stand with: Modified Independent Ambulate with: Stand By Assistance Distance: 150+ Device: Wheeled Walker Ambulate Up and Down Steps with: Contact Guard Assistance Number of Steps: 4 Device: Rail ROM: BLE strength to WFL Goal: 10 MWT walking speed to at least 0.75 m/s Rehab Potential: Good Progress Toward Goals: Progressing as expected ASSESSMENT Response to Therapy Interventions: Good Participation in Activities Patient able to complete stairs this session with one handrail. Plan for Next Visit: Gait Training, Stair Training, Standing Balance (Core strength) PRECAUTIONS Fall Risk L-2-3-4-5 laminectomy with L4-5 posterior fusion, no back brace, lopez, no BLT, resting tremor, [place] SUBJECTIVE They said I was getting a shower at 8:45 FUNCTIONAL STATUS Bed Mobility Rolling: Modified Independent Supine To Sit: Supervision Sit to Supine: Supervision Scooting: Stand By Assistance Transfers Sit To Stand: Stand By Assistance Stand To Sit: Stand By Assistance Bed to Chair Contact Guard Assistance Bed To Chair Transfer Type: Stepping Bed To Chair Transfer Equipment: Wheeled Walker Gait Stand By Assistance Gait Device: Wheeled Walker General Deviations/Observations : Flexed trunk posture, Cynthia decreased, Improper distancing from assistive device Gait Distance (feet): 200+ Stairs Contact Guard Assistance Stairs Device: Rail (right ascending handrail) Number of Stairs: 16 CURRENT HOSPITAL COURSE Patient is an 88 year old male presenting to [facility] s/p elective L2-3-4-5 laminectomy and L4-5 posterior fusion on 07/30 at [facility] with Dr. Rhodes after diagnosis of lumbar spondylosis and stenosis. Uneventful post-op course. Patient now presents below baseline level of function and can benefit from skilled services to facilitate return to home setting. Relevant Past Medical History: Lumbar stenosis and spondylosis HOME LIVING Patient Lives With: Spouse (1 story home with basement) Assistance Available: 24-Hour (spouse is retired, 4 children that live locally) Entry To Home: Stairs, With Rail Number Of Stairs Into Home: 4 (3 steps plus threshold, 1 HR) Number Of Stairs To Bed/Bath: 0 (ranch home) Tub/Shower Type: Tub/shower combo, grab bars, stands to shower, shower chair Laundry: Spouse performs, main floor Equipment Owned: Rollator, Grab Bars- Shower, Shower Chair, Commode- Raised PRIOR FUNCTIONAL LEVEL Within Functional Limits, Required Assistance, History of Falls Assistance Required With: Laundry, Cleaning, Meals Patient reports ind with ambulation without AD. One fall noted on a ship. 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 Performs own med mgmt. Was sleeping a recliner x 2 months. Has hearing aides but does not like them. 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 THERAPY DIAGNOSIS Reduced mobility-other, Muscle Weakness (generalized), Abnormalities of gait and mobility-other, Difficulty walking-musculoskeletal TREATMENT INTERVENTIONS Gait Training (06494), Therapeutic Activity (79723) Timed Code Treatment (minutes): 30 Skilled Treatment Time (minutes): 30 EXERCISE Exercises Exercise: cone taps x25 TRAINING AND EDUCATION PROVIDED Exercise Program, Expected Functional Level, Gait Pattern, Reduction of Deviations, Stair Navigation (more content not included)... [facility] NURSING PROGon 08-14-2023 NURSING PROG HNO ID: [id number] Author: SUKHI DELATORRE RN Service: Nursing Author Type: Registered Nurse Type: Nursing Progress Note Filed: 08/14/2023 12:39 Note Text: Patient requesting to sit up in chair at bedside for lunch. All new orders were reviewed with patient and spouse. Patient and spouse verbalized understanding. Pt requesting to wait and take lopez out after lunch so I can go back to bed. No other requests were made. [facility] NURSING PROG HNO ID: [id number] Author: SUKHI DELATORRE RN Service: Nursing Author Type: Registered Nurse Type: Nursing Progress Note Filed: 08/14/2023 08:21 Note Text: Patient resting in bed on left side. All treatments and procedures were explained. Pt asking about nasal spray. Patient states, That nurse yesterday told me that I had to wait a few more hours before I could take it again. Informed patient that it is every 12 hours as needed. Pt states, You can buy it over the counter so I think that you can take sooner than that. Took package into room and read instructions on back of package every 10 - 12 hours as needed and no more than 2 doses in a 24 hour period. Patient verbalized understanding. No other questions or concerns were voiced at this time.. [facility] SOCIAL WORKon 08-14-2023 SOCIAL WORK HNO ID: [id number] Author: TAMMY COURTNEY LSW Service: Social Work Author Type: Morgue Keeper Type: Social Work Filed: 08/14/2023 11:33 Note Text: Summary: Family Call SOCIAL WORK PROGRESS NOTE Name: Ciro Sales Patient's daughter Serena called after conference to make sure she didn't miss anything (had to go back to work.) She asked about patient's lopez. SW relayed that a voiding trial is to be done today to determine if patient is able to void and if not, lopez will have to be placed again. Serena asking that staff let her know the results of the trial. Serena said if patient has to discharge prior to 08/18, family will get him to his appt. Signature: ANTHONY Rodriguez Date: August 14, 2023 Time: 11:30 AM [facility] SOCIAL WORK HNO ID: [id number] Author: TAMMY COURTNEY LSW Service: Social Work Author Type: Morgue Keeper Type: Social Work Filed: 08/14/2023 11:21 Note Text: Summary: Patient Care Conference [facility] SERVICE DATE: 08/14/2023 ADMISSION DATE: 08/05/2023 SERVICE TIME: 10:30 AM ANTICIPATED D/C DATE: Pending insurance approval. Update 08/14. Physical Therapy: Yuliya Occupational Therapy: Toshia Social Work: Tammy Met with Ciro Sales, Manju and dtr Serena (via phone) to discuss patient's progress in rehabilitation program. Anticipated discharge date: Earliest would be 08/17 if insurance gives 3 days notice on 08/14. Anticipated discharge disposition: Home with homecare Equipment recommendations: Bedside Commode, Dressing Stick, Book Agent, Sock Aid. We recommend you have home therapist suggest an appropriate bed rail if needed. PT to work with patient to see if rail is necessary. Morgue Keeper will get front wheeled walker from [facility] equipment closet. Was family updated on current status and discharge planning: Yes Additional needs: Manju to measure height of bed at home. Patient had made a lot of progress. He is walking 500+ feet. Needs to remember to walk with an upright posture. Therapy recommends that someone be with patient 11/11 initially just to make sure he is getting around okay. [facility] will provide home therapy (physical and occupational), a nurse and a bath aide. Patient has an appt with urology on 08/18 at 9:30 am. sewage disposal worker will schedule wheelchair van if patient is at [facility] at that time. DOCUMENTED BY: ANTHONY Rodriguez PATIENT NAME: Ciro Sales DATE: August 14, 2023 TIME: 11:05 AM CSN: [id number] [facility] THERAPY NTon 08-14-2023 THERAPY NT HNO ID: [id number] Author: KERRI DOUGHERTY OTR/L Service: Occupational Therapy Author Type: Technical Sales Consultant Type: Therapy (PT/OT/Speech/Resp) Filed: 08/15/2023 07:39 Note Text: Attestation signed by Kerri Dougherty OTR/L at 08/15/2023 7:39 AM I reviewed and agree with the documentation corresponding to this therapy visit. SIGNATURE: COURT Morrissey DATE: August 15, 2023 TIME: 7:39 AM Summary: OT Insurance Update Occupational Therapy Assisted Facility Treatment Summary SERVICE DATE: 08/14/2023 SERVICE TIME: 1515 to 1557 ROOM: [place] [address] OT 6 Clicks Score: 21 DISCHARGE RECOMMENDATIONS Home OT Recommended Discharge Disposition Comments: Pt is expected to return home with supportive family to provide 11/11 assistance as needed and home health to follow for continued OT Anticipated Discharge Needs: Family Training, Physical Assist at Home, Supervision at Home, Equipment, Home Modifications Recommended Discharge Equipment: Commode-3 in 1, ADL Kit, Hand Held Shower, Long Handled Sponge, Wheeled Walker, To Be Determined GOALS Patient will demonstrate progress with self-care, cognitive and/or coping needs identified to allow safe discharge to home with available support and/or physical assistance. Lower Body Bathing with: Stand By Assistance Lower Body Dressing with: Stand By Assistance Toilet Hygiene with: Minimal Assistance Chair Transfer with: Stand By Assistance Toilet Transfer with: Stand By Assistance Tub Transfer with: Minimal Assistance Tolerate (minutes of functional activity): 50 Functional Activity with: Stand By Assistance Progress Toward Goals: Progressing as expected Rehab Potential: Good ASSESSMENT Response to Therapy Interventions: Good Participation in Activities, Needs Frequent Redirection or Reinstruction, Requires Encouragement to Complete Activities Pt improving in posterior hygiene tasks this day. Pt continues to demo some difficulty retaining education on effective sock aide use and would benefit from continued training to increase retention of education. Recommendation of caregiver presence during tub/shower transfers and standing aspects in the shower to decrease fall risk. Please see tub transfer comments for further detail. Plan for Next Visit: Bed Mobility, Chair/Commode Transfer Training, Dressing Training, Energy Conservation, Grooming Training, Sit to Stand Transfers, Standing Balance, Standing Tolerance, Toileting Instruction PRECAUTIONS Fall Risk L-2-3-4-5 laminectomy with L4-5 posterior fusion, no back brace, lopez, no BLT, resting tremor, [place] SUBJECTIVE Pt seen sleeping upon entering room - amenable to OT with some encouragement. FUNCTIONAL STATUS Activities of Daily Living Assist Level Additional Information Feeding Independent, Set Up Grooming Set Up (while seated) Bathing Upper Body Verbal Cues Only, Additional Information Bathing Lower Body Minimal Assistance, Additional Information Dressing Upper Body Modified Independent Dressing Lower Body Verbal Cues Only to don/doff socks. Cues for efficient AE use. Toileting Contact Guard Assistance, Minimal Assistance BSC frame over commode. Pt with catheter removed. Stating he does not have to urinate but amenable to placement of urinal while attempting BM for urine collection. Pt unsuccessful on both fronts. Pt participating in posterior hygiene but requiring assist for thoroughness. Pt likely able to complete at CGA/SBA with ample time and rest breaks as needed Instrumental Activities of Daily Living Assist Level Additional Information Meal/Beverage Prep Total Assistance Cleaning Total Assistance Laundry Total Assistance Medication Management with Strategies Mobility Assist Level Additional Information Bed Mobility Supine To Sit: Stand By Assistance use of hand rail Sit To Supine: Stand By Assistance Sit to Stand Stand By Assistance improved hand placement Stand to Sit Stand By Assistance improved hand placement Bed to Chair Contact Guard Assistance Bed To Chair Transfer Type: Stepping Bed To Chair Transfer Equipment: Wheeled Walker, Gait Belt Toilet/Commode Stand By Assistance BSC over commode Shower Contact Guard Assistance Functional Mobility Stand By Assistance Functional Mobility Device: Wheeled Walker CURRENT HOSPITAL COURSE Patient is an 88 year old male presenting to [facility] s/p elective L2-3-4-5 laminectomy and L4-5 posterior fusion on 07/30 at [facility] with Dr. Rhodes after diagnosis of lumbar spondylosis and stenosis. Uneventful post-op cours (more content not included)... [facility] THERAPY NT HNO ID: [id number] Author: YULIYA CAMERON PT Service: Physical Therapy Author Type: Regional Account Executive Type: Therapy (PT/OT/Speech/Resp) Filed: 08/14/2023 14:34 Note Text: Attestation signed by Yuliya Cameron PT at 08/14/2023 2:34 PM I reviewed and agree with the documentation corresponding to this therapy visit. SIGNATURE: Yuliya Cameron PT DATE: August 14, 2023 TIME: 2:34 PM Summary: PT Insurance Update Physical Therapy Assisted Facility Treatment Summary SERVICE DATE: 08/14/2023 SERVICE TIME: 1302 to 1350 ROOM: [place] [address] PT 6 Clicks Score: 22 DISCHARGE RECOMMENDATIONS Home PT Recommended Discharge Disposition Comments: Home PT with 11/11 supervision and assist from spouse and PRN from children as needed followed by outpatient therapy Anticipated Discharge Needs: Family Training, Physical Assist at Home, Supervision at Home, Equipment, Home Modifications Recommended Discharge Equipment: Commode-3 in 1, Hand Held Shower, Wheeled Walker, To Be Determined (B HRs to enter home) GOALS Patient will demonstrate progress with functional mobility to allow safe discharge to home with available support and/or physical assistance. Able to Perform HEP with: Independent Transfer Sit to/from Stand with: Modified Independent Ambulate with: Stand By Assistance Distance: 150+ Device: Wheeled Walker Ambulate Up and Down Steps with: Contact Guard Assistance Number of Steps: 4 Device: Rail ROM: BLE strength to WFL Goal: 10 MWT walking speed to at least 0.75 m/s Rehab Potential: Good Progress Toward Goals: Progressing as expected ASSESSMENT Response to Therapy Interventions: Good Participation in Activities, On-Track to Achieve Discharge Goals Patient able to ambulate around whole unit complete stairs and seated lower extremity exercises with resistance. Patient will continue to benefit from therapy as he could still use some work on the steps as he still requires cues for technique patient will also benefit as he still has some lower extremity weakness. Plan for Next Visit: Gait Training, Stair Training (core) PRECAUTIONS Fall Risk L-2-3-4-5 laminectomy with L4-5 posterior fusion, no back brace, lopez, no BLT, resting tremor, [place] SUBJECTIVE I've been up in this chair a little too long FUNCTIONAL STATUS Bed Mobility Rolling: Modified Independent Supine To Sit: Supervision Sit to Supine: Supervision Scooting: Stand By Assistance Transfers Sit To Stand: Stand By Assistance Stand To Sit: Stand By Assistance Bed to Chair Contact Guard Assistance Bed To Chair Transfer Type: Stepping Bed To Chair Transfer Equipment: Wheeled Walker Gait Stand By Assistance Gait Device: Wheeled Walker General Deviations/Observations : Flexed trunk posture, Cynthia decreased, Improper distancing from assistive device Gait Distance (feet): 200+ Stairs Contact Guard Assistance Stairs Device: Rail (bilateral) Number of Stairs: 8 CURRENT HOSPITAL COURSE Patient is an 88 year old male presenting to [facility] s/p elective L2-3-4-5 laminectomy and L4-5 posterior fusion on 07/30 at [facility] with Dr. Rhodes after diagnosis of lumbar spondylosis and stenosis. Uneventful post-op course. Patient now presents below baseline level of function and can benefit from skilled services to facilitate return to home setting. Relevant Past Medical History: Lumbar stenosis and spondylosis HOME LIVING Patient Lives With: Spouse (1 story home with basement) Assistance Available: 24-Hour (spouse is retired, 4 children that live locally) Entry To Home: Stairs, With Rail Number Of Stairs Into Home: 4 (3 steps plus threshold, 1 HR) Number Of Stairs To Bed/Bath: 0 (ranch home) Tub/Shower Type: Tub/shower combo, grab bars, stands to shower, shower chair Laundry: Spouse performs, main floor Equipment Owned: Rollator, Grab Bars- Shower, Shower Chair, Commode- Raised PRIOR FUNCTIONAL LEVEL Within Functional Limits, Required Assistance, History of Falls Assistance Required With: Laundry, Cleaning, Meals Patient reports ind with ambulation without AD. One fall noted on a ship. 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 Performs own med mgmt. Was sleeping a recliner x 2 months. Has hearing aides but does not like them. 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 THERAPY DIAGNOSIS Reduced mobility-other, Mus (more content not included)... [facility] THERAPY NT HNO ID: [id number] Author: CARLOS ALLISON OTA/L Service: Occupational Therapy Author Type: Technical Sales Consultant Type: Therapy (PT/OT/Speech/Resp) Filed: 08/14/2023 12:56 Note Text: Attestation signed by Brooke Ruiz OTR/L at 08/14/2023 3:20 PM I reviewed and agree with the documentation corresponding to this therapy visit. SIGNATURE: Brooke Ruiz OTR/L DATE: August 14, 2023 TIME: 3:20 PM Occupational Therapy Assisted Facility Treatment Summary SERVICE DATE: 08/14/2023 SERVICE TIME: 1035 to 1111 ROOM: [place] [address] OT 6 Clicks Score: 21 DISCHARGE RECOMMENDATIONS Home OT Recommended Discharge Disposition Comments: Pt is expected to return home with supportive family to provide 11/11 assistance as needed and home health to follow for continued OT Anticipated Discharge Needs: Family Training, Physical Assist at Home, Supervision at Home, Equipment, Home Modifications Recommended Discharge Equipment: Commode-3 in 1, ADL Kit, Hand Held Shower, Long Handled Sponge, Wheeled Walker, To Be Determined GOALS Patient will demonstrate progress with self-care, cognitive and/or coping needs identified to allow safe discharge to home with available support and/or physical assistance. Lower Body Bathing with: Stand By Assistance Lower Body Dressing with: Stand By Assistance Toilet Hygiene with: Minimal Assistance Chair Transfer with: Stand By Assistance Toilet Transfer with: Stand By Assistance Tub Transfer with: Minimal Assistance Tolerate (minutes of functional activity): 50 Functional Activity with: Stand By Assistance Progress Toward Goals: Progressing as expected Rehab Potential: Good ASSESSMENT Response to Therapy Interventions: Good Participation in Activities Pt and family participating in Care Conference. Education and recommendations provided re: equipment, assist levels, cargiver support. Pt, spouse, and dtr verbalizing understanding of all recommendations. Plan for Next Visit: Bed Mobility, Chair/Commode Transfer Training, Dressing Training, Energy Conservation, Grooming Training, Sit to Stand Transfers, Standing Balance, Standing Tolerance, Toileting Instruction PRECAUTIONS Fall Risk L-2-3-4-5 laminectomy with L4-5 posterior fusion, no back brace, lopez, no BLT, resting tremor, [place] SUBJECTIVE Pt, spouse, and dtr participating in Care Conference this day. FUNCTIONAL STATUS Activities of Daily Living Assist Level Additional Information Feeding Independent, Set Up Grooming Set Up (while seated) Bathing Upper Body Verbal Cues Only, Additional Information Bathing Lower Body Minimal Assistance, Additional Information Dressing Upper Body Modified Independent Dressing Lower Body Minimal Assistance, Additional Information Toileting Contact Guard Assistance Instrumental Activities of Daily Living Assist Level Additional Information Meal/Beverage Prep Total Assistance Cleaning Total Assistance Laundry Total Assistance Medication Management with Strategies Mobility Assist Level Additional Information Bed Mobility Supine To Sit: Stand By Assistance Sit To Supine: Stand By Assistance Sit to Stand Stand By Assistance Stand to Sit Stand By Assistance Bed to Chair Contact Guard Assistance Bed To Chair Transfer Type: Stepping Bed To Chair Transfer Equipment: Wheeled Walker, Gait Belt Toilet/Commode Stand By Assistance Shower Contact Guard Assistance Functional Mobility Stand By Assistance Functional Mobility Device: Wheeled Walker CURRENT HOSPITAL COURSE Patient is an 88 year old male presenting to [facility] s/p elective L2-3-4-5 laminectomy and L4-5 posterior fusion on 07/30 at [facility] with Dr. Rhodes after diagnosis of lumbar spondylosis and stenosis. Uneventful post-op course. Patient now presents below baseline level of function and can benefit from skilled services to facilitate return to home setting. Relevant Past Medical History: Lumbar stenosis and spondylosis HOME LIVING Patient Lives With: Spouse (1 story home with basement) Assistance Available: 24-Hour (spouse is retired, 4 children that live locally) Entry To Home: Stairs, With Rail Number Of Stairs Into Home: 4 (3 steps plus threshold, 1 HR) Number Of Stairs To Bed/Bath: 0 (ranch home) Tub/Shower Type: Tub/shower combo, grab bars, stands to shower, shower chair Laundry: Spouse performs, main floor Equipment Owned: Rollator, Grab Bars- Shower, Shower Chair, Commode- Raised PRIOR FUNCTIONAL LEVEL Within Functional Limits, Required Assistance, History of Falls Assistance Required With: Laundry, Cleaning, Meals Patient reports ind with ambulation without AD. One fall noted on a ship. Patient reporting ind with ADLs, showering, spouse performs cooking, cleaning, and l (more content not included)... Normal [facility] THERAPY NT HNO ID: [id number] Author: YULIYA CAMERON PT Service: Physical Therapy Author Type: Physical Therapist Type: Therapy (PT/OT/Speech/Resp) Filed: 08/14/2023 12:26 Note Text: Physical Therapy Assisted Facility Treatment Summary SERVICE DATE: 08/14/2023 SERVICE TIME: 1035 to 1111 ROOM: [place] [address] PT 6 Clicks Score: 23 DISCHARGE RECOMMENDATIONS Home PT Recommended Discharge Disposition Comments: Home PT with 11/11 supervision and assist from spouse and PRN from children as needed followed by outpatient therapy Anticipated Discharge Needs: Family Training, Physical Assist at Home, Supervision at Home, Equipment, Home Modifications Recommended Discharge Equipment: Commode-3 in 1, Hand Held Shower, Wheeled Walker, To Be Determined (B HRs to enter home) GOALS Patient will demonstrate progress with functional mobility to allow safe discharge to home with available support and/or physical assistance. Able to Perform HEP with: Independent Transfer Sit to/from Stand with: Modified Independent Ambulate with: Stand By Assistance Distance: 150+ Device: Wheeled Walker Ambulate Up and Down Steps with: Contact Guard Assistance Number of Steps: 4 Device: Rail ROM: BLE strength to WFL Goal: 10 MWT walking speed to at least 0.75 m/s Rehab Potential: Good Progress Toward Goals: Progressing as expected ASSESSMENT Response to Therapy Interventions: On-Track to Achieve Discharge Goals Care conference completed this date with patient, spouse, daughter Serena via phone, PT, OT, MANAGER VAN present. Discussion this date regarding patient's current level of functioning including ambulation at a CGA level, 4 steps with CGA and gait belt, as well as bed mobility encouraging log roll with SBA/ supervision. Discussed that paitent has been resistive to exercises for core/ trunk strength as well as LE strength. Patient notes that he has a recumbent bicycle at home he'd be willing to use, with encouragement for no resistance while bicycling. NRD of 08/14, and patient extremely concerned regarding lopez management. Voiding trial scheduled for today after lunch, with discussion that should patient fail voiding trial, we will show him and family how to don a leg bag/ empty the bag. Patient also questionning if he should be mowing the lawn, with patient educated that family should be completing all outdoor tasks. Continue as tolerated. Plan for Next Visit: Gait Training, Stair Training (core strength) PRECAUTIONS Fall Risk L-2-3-4-5 laminectomy with L4-5 posterior fusion, no back brace, lopez, no BLT, resting tremor, [place] SUBJECTIVE Care conference completed this date with patient, spouse, daughter Serena via phone, PT, OT, MANAGER VAN present FUNCTIONAL STATUS Bed Mobility Rolling: Modified Independent Supine To Sit: Supervision Sit to Supine: Supervision Scooting: Stand By Assistance Transfers Sit To Stand: Stand By Assistance (cues for hand placement at times due to pulling up on walker) Stand To Sit: Stand By Assistance Bed to Chair Contact Guard Assistance Bed To Chair Transfer Type: Stepping Bed To Chair Transfer Equipment: Wheeled Walker Gait Stand By Assistance Gait Device: Wheeled Walker Gait Distance (feet): 150 Stairs Contact Guard Assistance Stairs Device: Rail Number of Stairs: 4 CURRENT HOSPITAL COURSE Patient is an 88 year old male presenting to [facility] s/p elective L2-3-4-5 laminectomy and L4-5 posterior fusion on 07/30 at [facility] with Dr. Rhodes after diagnosis of lumbar spondylosis and stenosis. Uneventful post-op course. Patient now presents below baseline level of function and can benefit from skilled services to facilitate return to home setting. Relevant Past Medical History: Lumbar stenosis and spondylosis HOME LIVING Patient Lives With: Spouse (1 story home with basement) Assistance Available: 24-Hour (spouse is retired, 4 children that live locally) Entry To Home: Stairs, With Rail Number Of Stairs Into Home: 4 (3 steps plus threshold, 1 HR) Number Of Stairs To Bed/Bath: 0 (ranch home) Tub/Shower Type: Tub/shower combo, grab bars, stands to shower, shower chair Laundry: Spouse performs, main floor Equipment Owned: Rollator, Grab Bars- Shower, Shower Chair, Commode- Raised PRIOR FUNCTIONAL LEVEL Within Functional Limits, Required Assistance, History of Falls Assistance Required With: Laundry, Cleaning, Meals Patient reports ind with ambulation without AD. One fall noted on a ship. 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 Performs own med mgmt. Was sleeping a recliner x 2 months. Has hearing aides but does not like them. 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 THERAPY DIAGNOSIS Reduced mobility- (more content not included)... [facility] NURSING PROGon 08-13-2023 NURSING PROG HNO ID: [id number] Author: SUKHI DELATORRE RN Service: Nursing Author Type: Registered Nurse Type: Nursing Progress Note Filed: 08/13/2023 15:16 Note Text: Patient sitting up on side of bed with OT present in room. Patient with concerns regarding lopez. Patient states, I don't want to go home with this catheter . It is too much for me and my to handle. Discussed with patient that we have no answers until he sees the urologist on the . Patient asking about bladder scan or removal of lopez. Informed patient that he will need to see the urologist next week. Patient states, Just tell the insurance that it's too much for us and that I need to stay here until it is out. Patient states, What would happen and they try to send me home with this catheter. Informed patient if they do we will teach them how to take care of the lopez. No other questions or concerns were voiced at this time. [facility] NURSING PROG HNO ID: [id number] Author: SUKHI DELATORRE RN Service: Nursing Author Type: Registered Nurse Type: Nursing Progress Note Filed: 08/13/2023 11:16 Note Text: Patient sitting up in chair at bedside waiting for breakfast. All treatments and procedures were explained. Patient verbalized understanding. Patient has an appointment to have sutures removed this morning. Pick-up time 0745. Meds given. No questions or concerns were voiced at this time. [facility] NUTRITIONon 08-13-2023 NUTRITION HNO ID: [id number] Author: ALEJANDRO SMITH RD Service: Nutrition Therapy Author Type: Registered Dietitian Type: Nutrition Filed: 08/13/2023 11:51 Note Text: NUTRITION THERAPY PROGRESS NOTE SERVICE DATE: 08/13/2023 SERVICE TIME: 11:47 AM Nutrition Assessment: Recommended Malnutrition Diagnosis: No Malnutrition Identified (08/06/23 1051 : Alejandro Smith RD) Calorie Calculation Method: 25-30 kcals/kg Estimated protein needs (grams): 76-91 Grams protein determined by: 1.0 - 1.2 g/kg, [place] body weight Care Plan: Continue current diet Monitor and Evaluation: Meet greater than 75% of estimated needs, Monitor fluid/electrolyte balance, Monitor labs, I/Os, vital signs, weight Discharge Recommendations: Diet Diet: regular Interval History: Day 7 LOS, here for therapy, no new wt. Skin alterations remain, N.O. VitC,Fe, Calcium,VitD. Good appetite >75% meals, no concerns voiced. +BMs per Chart. 1+BLE edema noted. Anthropometrics: Height: 177.8 cm (5' 10) Weight: 100.8 kg (222 lb 3.6 oz) Dosing Weight: 75.3 kg (166 lb) Body mass index is 31.89 kg/m?. Intake History: Current Nutrition Intake: Greater than 75% estimated energy needs Current Intake Over time: Greater than or equal to 7 days Diet Orders (From admission, onward) Start Ordered 08/05/23 1545 DIET REGULAR START NOW 08/05/23 1537 MNT Billing: $ Reassessment: 1-15 minutes SIGNATURE: Alejandro Smith RD PATIENT NAME: Ciro Sales DATE: August 13, 2023 TIME: 11:47 AM [facility] SOCIAL WORKon 08-13-2023 SOCIAL WORK HNO ID: [id number] Author: TAMMY COURTNEY LSW Service: Social Work Author Type: Morgue Keeper Type: Social Work Filed: 08/13/2023 18:11 Note Text: Summary: MICHAEL cardenas SOCIAL WORK PROGRESS NOTE Name: Ciro Sales Patient returned from appt. Said he has another appt on 08/18 and is really hoping to be here at that time as it is much easier to transport from here. Told him of insurance update on 08/14. Signature: ANTHONY Rodriguez Date: August 13, 2023 Time: 6:10 PM [facility] SOCIAL WORK HNO ID: [id number] Author: TAMMY COURTNEY LSW Service: Social Work Author Type: Morgue Keeper Type: Social Work Filed: 08/13/2023 16:48 Note Text: Summary: Team Rounds MULTIDISCIPLINARY ROUNDS SERVICE DATE: 08/13/2023 ADMISSION DATE: 08/05/2023 SERVICE TIME: 12:30 PM ANTICIPATED D/C DATE: 08/18 Problem List: ACTIVE PROBLEM LIST Aftercare Low Back Pain Htn (Hypertension) S/P Laminectomy Urinary Retention Obesity, Class I, Bmi 30-34.9 Constipation Spinal Stenosis Renal Insufficiency Attendees Present at Rounds: CM, 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, NM, OT, PT, SW Needs Discussed on Rounds: Discharge Needs Follow Up Appointments Mobility Psycho/Social Plan of Care Anticipated Discharge Disposition: Home with Home Health Last Vitals: BP 165/92 Pulse 88 Temp (Src) 98.8 (Oral) Resp 16 Ht 5' 10 (1.78m) Wt 222 lb 3.6 oz (100.8kg) SpO2 91% BMI 31.89 kg/(m2). O2 Therapy: Room Air SW: Conference 08/13 at 10:30 with Manju. Daughter Serena on phone. DC plan - Home with . Patient hoping to be here to go to [facility] on 08/18. PT: Walked over 500ft. 8 steps with contact guard. OT: Resistant to self care. Toileting is biggest barrier. Capable to reach most areas in showering but relied upon therapy to complete most tasks. Nursing: DOCUMENTED BY: ANTHONY Rodriguez PATIENT NAME: Ciro Sales DATE: August 13, 2023 TIME: 11:26 AM CSN: [id number] [facility] THERAPY NTon 08-13-2023 THERAPY NT HNO ID: [id number] Author: GLENDY DONOVAN PT Service: Physical Therapy Author Type: Regional Account Executive Type: Therapy (PT/OT/Speech/Resp) Filed: 08/14/2023 08:02 Note Text: Attestation signed by Glendy Donovan PT at 08/14/2023 8:02 AM I reviewed and agree with the documentation corresponding to this therapy visit. SIGNATURE: Glendy Donovan PT DATE: August 14, 2023 TIME: 8:02 AM Physical Therapy Assisted Facility Treatment Summary SERVICE DATE: 08/13/2023 SERVICE TIME: 1515 to 1555 ROOM: [place] [address] PT 6 Clicks Score: 23 DISCHARGE RECOMMENDATIONS Home PT Recommended Discharge Disposition Comments: Home PT with 11/11 supervision and assist from spouse and PRN from children as needed followed by outpatient therapy Anticipated Discharge Needs: Family Training, Physical Assist at Home, Supervision at Home, Equipment, Home Modifications Recommended Discharge Equipment: Commode-3 in 1, Hand Held Shower, Wheeled Walker, To Be Determined (B HRs to enter home) GOALS Patient will demonstrate progress with functional mobility to allow safe discharge to home with available support and/or physical assistance. Able to Perform HEP with: Independent Transfer Sit to/from Stand with: Modified Independent Ambulate with: Stand By Assistance Distance: 150+ Device: Wheeled Walker Ambulate Up and Down Steps with: Contact Guard Assistance Number of Steps: 4 Device: Rail ROM: BLE strength to WFL Goal: 10 MWT walking speed to at least 0.75 m/s Rehab Potential: Good Progress Toward Goals: Progressing as expected ASSESSMENT Response to Therapy Interventions: Good Participation in Activities Patient continues to tolerate all exercises well while require some verbal and visual cues throughout for technique as well as some short rest breaks due to fatigue. Plan for Next Visit: Gait Training, Standing Balance, Standing Tolerance PRECAUTIONS Fall Risk L-2-3-4-5 laminectomy with L4-5 posterior fusion, no back brace, lopez, no BLT, resting tremor, [place] SUBJECTIVE what's this meeting tomorrow all about FUNCTIONAL STATUS Bed Mobility Rolling: Modified Independent Supine To Sit: Supervision Sit to Supine: Supervision Scooting: Stand By Assistance Transfers Sit To Stand: Stand By Assistance (cues for hand placement at times due to pulling up on walker) Stand To Sit: Stand By Assistance Bed to Chair Contact Guard Assistance Bed To Chair Transfer Type: Stepping Bed To Chair Transfer Equipment: Wheeled Walker Gait Stand By Assistance Gait Device: Wheeled Walker General Deviations/Observations : Flexed trunk posture, Cynthia decreased, Improper distancing from assistive device Gait Distance (feet): 150 Stairs Contact Guard Assistance Stairs Device: Rail Number of Stairs: 4 CURRENT HOSPITAL COURSE Patient is an 88 year old male presenting to [facility] s/p elective L2-3-4-5 laminectomy and L4-5 posterior fusion on 07/30 at [facility] with Dr. Rhodes after diagnosis of lumbar spondylosis and stenosis. Uneventful post-op course. Patient now presents below baseline level of function and can benefit from skilled services to facilitate return to home setting. Relevant Past Medical History: Lumbar stenosis and spondylosis HOME LIVING Patient Lives With: Spouse (1 story home with basement) Assistance Available: 24-Hour (spouse is retired, 4 children that live locally) Entry To Home: Stairs, With Rail Number Of Stairs Into Home: 4 (3 steps plus threshold, 1 HR) Number Of Stairs To Bed/Bath: 0 (ranch home) Tub/Shower Type: Tub/shower combo, grab bars, stands to shower, shower chair Laundry: Spouse performs, main floor Equipment Owned: Rollator, Grab Bars- Shower, Shower Chair, Commode- Raised PRIOR FUNCTIONAL LEVEL Within Functional Limits, Required Assistance, History of Falls Assistance Required With: Laundry, Cleaning, Meals Patient reports ind with ambulation without AD. One fall noted on a ship. 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 Performs own med mgmt. Was sleeping a recliner x 2 months. Has hearing aides but does not like them. 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 THERAPY DIAGNOSIS Reduced mobility-other, Muscle Weakness (generalized), Abnormalities of gait and mobility-other, Difficulty walking-musculoskeletal TREATMENT INTERVENTIONS Gait Training (75198), Therapeutic Exercise (50484) Timed Code Treatment (minutes): 38 Skilled Treatment Time (minutes): 38 EXERCISE Exercises Exercise: seated hip abduction green T- (more content not included)... [facility] THERAPY NT HNO ID: [id number] Author: KERRI DOUGHERTY OTR/L Service: Occupational Therapy Author Type: Technical Sales Consultant Type: Therapy (PT/OT/Speech/Resp) Filed: 08/13/2023 15:47 Note Text: Attestation signed by Kerri Dougherty OTR/L at 08/13/2023 3:47 PM I reviewed and agree with the documentation corresponding to this therapy visit. SIGNATURE: COURT Morrissey DATE: August 13, 2023 TIME: 3:47 PM Occupational Therapy Assisted Facility Treatment Summary SERVICE DATE: 08/13/2023 SERVICE TIME: 1500 to 1514 ROOM: [place] [address] OT 6 Clicks Score: 21 DISCHARGE RECOMMENDATIONS Home OT Recommended Discharge Disposition Comments: Pt is expected to return home with supportive family to provide 11/11 assistance as needed and home health to follow for continued OT Anticipated Discharge Needs: Family Training, Physical Assist at Home, Supervision at Home, Equipment, Home Modifications Recommended Discharge Equipment: Commode-3 in 1, ADL Kit, Hand Held Shower, Long Handled Sponge, Wheeled Walker, To Be Determined GOALS Patient will demonstrate progress with self-care, cognitive and/or coping needs identified to allow safe discharge to home with available support and/or physical assistance. Lower Body Bathing with: Stand By Assistance Lower Body Dressing with: Stand By Assistance Toilet Hygiene with: Minimal Assistance Chair Transfer with: Stand By Assistance Toilet Transfer with: Stand By Assistance Tub Transfer with: Minimal Assistance Tolerate (minutes of functional activity): 50 Functional Activity with: Stand By Assistance Progress Toward Goals: Progressing as expected Rehab Potential: Good ASSESSMENT Response to Therapy Interventions: Good Participation in Activities Pt completing exercise this day with physical assist and modeling to body mechanics. Plan for Next Visit: Bed Mobility, Chair/Commode Transfer Training, Dressing Training, Energy Conservation, Grooming Training, Sit to Stand Transfers, Standing Balance, Standing Tolerance, Toileting Instruction PRECAUTIONS Fall Risk L-2-3-4-5 laminectomy with L4-5 posterior fusion, no back brace, lopez, no BLT, resting tremor, [place] SUBJECTIVE Pt reporting he thought this therapist was coming back - saying he was upset re: catheter but still wanted to work with therapy if there was time. FUNCTIONAL STATUS Activities of Daily Living Assist Level Additional Information Feeding Independent, Set Up Grooming Set Up (while seated) Bathing Upper Body Verbal Cues Only, Additional Information Bathing Lower Body Minimal Assistance, Additional Information Dressing Upper Body Modified Independent Dressing Lower Body Minimal Assistance, Additional Information Pt stating he is able to BLT per doctor apt this morning. Unsuccessful attempt to thread brief over BLEs and demo'ing some difficutly with AE use but more success than without. Participating in cath mgmt this day with extended time/effort Toileting Contact Guard Assistance BSC frame over commode. Pt able to complete posterior hygiene in standing with unilateral support on FWW. Instrumental Activities of Daily Living Assist Level Additional Information Meal/Beverage Prep Total Assistance Cleaning Total Assistance Laundry Total Assistance Medication Management with Strategies Mobility Assist Level Additional Information Bed Mobility Supine To Sit: Stand By Assistance using log roll technique for spinal precautions; bed flat, heavy use of rail Sit To Supine: Stand By Assistance Sit to Stand Stand By Assistance improved hand placement Stand to Sit Stand By Assistance improved hand placement Bed to Chair Contact Guard Assistance Bed To Chair Transfer Type: Stepping Bed To Chair Transfer Equipment: Wheeled Walker, Gait Belt Toilet/Commode Stand By Assistance BSC over commode Shower Contact Guard Assistance Functional Mobility Stand By Assistance Functional Mobility Device: Wheeled Walker CURRENT HOSPITAL COURSE Patient is an 88 year old male presenting to [facility] s/p elective L2-3-4-5 laminectomy and L4-5 posterior fusion on 07/30 at [facility] with Dr. Rhodes after diagnosis of lumbar spondylosis and stenosis. Uneventful post-op course. Patient now presents below baseline level of function and can benefit from skilled services to facilitate return to home setting. Relevant Past Medical History: Lumbar stenosis and spondylosis HOME LIVING Patient Lives With: Spouse (1 story home with basement) Assistance Available: 24-Hour (spouse is retired, 4 children that live locally) Entry To Home: Stairs, With Rail Number Of Stairs Into Home: 4 (3 steps plus threshold, 1 HR) Number Of Stairs To Bed/Bath: 0 (ranch home) Tub/Shower Type: Tub/harleen (more content not included)... Normal [facility] THERAPY NT HNO ID: [id number] Author: KERRI DOUGHERTY OTR/L Service: Occupational Therapy Author Type: Technical Sales Consultant Type: Therapy (PT/OT/Speech/Resp) Filed: 08/13/2023 15:45 Note Text: Attestation signed by Kerri Dougherty OTR/L at 08/13/2023 3:45 PM I reviewed and agree with the documentation corresponding to this therapy visit. SIGNATURE: COURT Morrissey DATE: August 13, 2023 TIME: 3:45 PM Occupational Therapy Assisted Facility Treatment Summary SERVICE DATE: 08/13/2023 SERVICE TIME: 1350 to 1430 ROOM: [place] [address] OT 6 Clicks Score: 21 DISCHARGE RECOMMENDATIONS Home OT Recommended Discharge Disposition Comments: Pt is expected to return home with supportive family to provide 11/11 assistance as needed and home health to follow for continued OT Anticipated Discharge Needs: Family Training, Physical Assist at Home, Supervision at Home, Equipment, Home Modifications Recommended Discharge Equipment: Commode-3 in 1, ADL Kit, Hand Held Shower, Long Handled Sponge, Wheeled Walker, To Be Determined GOALS Patient will demonstrate progress with self-care, cognitive and/or coping needs identified to allow safe discharge to home with available support and/or physical assistance. Lower Body Bathing with: Stand By Assistance Lower Body Dressing with: Stand By Assistance Toilet Hygiene with: Minimal Assistance Chair Transfer with: Stand By Assistance Toilet Transfer with: Stand By Assistance Tub Transfer with: Minimal Assistance Tolerate (minutes of functional activity): 50 Functional Activity with: Stand By Assistance Progress Toward Goals: Progressing as expected Rehab Potential: Good ASSESSMENT Response to Therapy Interventions: Good Participation in Activities, Requires Encouragement to Complete Activities Pt participating in equipement recommendations as he demo'd no recollection of previous conversations regarding equipment. Pt provided with handouts for AE, BSC, and shower chair as needed. Pt reporting doctor has removed BLT restrictions but confirmation may be warrented as pt may not be an accurate historian. Pt would benefit from continued LB dressing and toileting training prior to d/c with a focus on catheter mgmt in order to increase IND prior to d/c. Plan for Next Visit: Bed Mobility, Chair/Commode Transfer Training, Dressing Training, Energy Conservation, Grooming Training, Sit to Stand Transfers, Standing Balance, Standing Tolerance, Toileting Instruction PRECAUTIONS Fall Risk L-2-3-4-5 laminectomy with L4-5 posterior fusion, no back brace, lopez, no BLT, resting tremor, [place] SUBJECTIVE Pt sleeping upon entering room. Pt amenable to some OT but very distracted throughout. Pt becoming upset re:catheter management and d/c planning. Tearful and requesting cold cloth for eyes. Requesting early end to session FUNCTIONAL STATUS Activities of Daily Living Assist Level Additional Information Feeding Independent, Set Up Grooming Set Up (while seated) Bathing Upper Body Verbal Cues Only, Additional Information Bathing Lower Body Minimal Assistance, Additional Information Dressing Upper Body Modified Independent Dressing Lower Body Minimal Assistance, Additional Information Pt stating he is able to BLT per doctor apt this morning. Unsuccessful attempt to thread brief over BLEs and demo'ing some difficutly with AE use but more success than without. Participating in cath mgmt this day with extended time/effort Toileting Contact Guard Assistance BSC frame over commode. Pt able to complete posterior hygiene in standing with unilateral support on FWW. Instrumental Activities of Daily Living Assist Level Additional Information Meal/Beverage Prep Total Assistance Cleaning Total Assistance Laundry Total Assistance Medication Management with Strategies Mobility Assist Level Additional Information Bed Mobility Supine To Sit: Stand By Assistance using log roll technique for spinal precautions; bed flat, heavy use of rail Sit To Supine: Stand By Assistance Sit to Stand Stand By Assistance improved hand placement Stand to Sit Stand By Assistance improved hand placement Bed to Chair Contact Guard Assistance Bed To Chair Transfer Type: Stepping Bed To Chair Transfer Equipment: Wheeled Walker, Gait Belt Toilet/Commode Stand By Assistance BSC over commode Shower Contact Guard Assistance Functional Mobility Stand By Assistance Functional Mobility Device: Wheeled Walker CURRENT HOSPITAL COURSE Patient is an 88 year old male presenting to [facility] s/p elective L2-3-4-5 laminectomy and L4-5 posterior fusion on 07/30 at [facility] with Dr. Rhodes after diagnosis of lumbar spondylosis and stenosis. Uneventful post-op course. Patient n (more content not included)... Normal [facility] FLUABV+SARS-CoV-2+RSV Pnl Re sp CHRISTA+probeon 08-12-2023 FLUABV+SARS-CoV-2+RSV Pnl Resp CHRISTA+probe COVID 19 RESULT: Not detected The method used is RT-PCR or an equivalent NAAT method. Reference Range(the expected result in uninfected individuals): Not detected INFLUENZA A PCR: Not detected INFLUENZA B PCR: Not detected RSV PCR: Not detected Normal [facility] Comment on above: Performed By: #### 9 5941-1 ####[facility] [id number] [place] [address] [facility] SOCIAL WORKon 08-12-2023 SOCIAL WORK HNO ID: [id number] Author: TAMMY COURTNEY LSW Service: Social Work Author Type: Morgue Keeper Type: Social Work Filed: 08/12/2023 15:54 Note Text: Summary: Family Call/care conference SOCIAL WORK PROGRESS NOTE Name: Ciro Sales Patient's informed SW that the number we have for daughter Serena is no longer correct. She has a cell now: [phone]. Scheduled conference for 08/13 at 1030 am. Serena to be on phone. SW will relay to patient's . 1553: Left message for patient's re: conference at 10:30 on 08/13. Signature: ANTHONY Rodriguez Date: August 12, 2023 Time: 10:56 AM Normal [facility] THERAPY NTon 08-12-2023 THERAPY NT HNO ID: [id number] Author: ROBINA MARTINEZ, PT, DPT Service: Physical Therapy Author Type: Physical Therapist Type: Therapy (PT/OT/Speech/Resp) Filed: 08/12/2023 15:21 Note Text: Physical Therapy Assisted Facility Treatment Summary SERVICE DATE: 08/12/2023 SERVICE TIME: 1330 to 1416 ROOM: [place] [address] PT 6 Clicks Score: 23 DISCHARGE RECOMMENDATIONS Home PT Recommended Discharge Disposition Comments: Home PT with 11/11 supervision and assist from spouse and PRN from children as needed followed by outpatient therapy Anticipated Discharge Needs: Family Training, Physical Assist at Home, Supervision at Home, Equipment, Home Modifications Recommended Discharge Equipment: Commode-3 in 1, Hand Held Shower, Wheeled Walker, To Be Determined (B HRs to enter home) GOALS Patient will demonstrate progress with functional mobility to allow safe discharge to home with available support and/or physical assistance. Able to Perform HEP with: Independent Transfer Sit to/from Stand with: Modified Independent Ambulate with: Stand By Assistance Distance: 150+ Device: Wheeled Walker Ambulate Up and Down Steps with: Contact Guard Assistance Number of Steps: 4 Device: Rail ROM: BLE strength to WFL Goal: 10 MWT walking speed to at least 0.75 m/s Rehab Potential: Good Progress Toward Goals: Progressing as expected ASSESSMENT Response to Therapy Interventions: Good Participation in Activities, Improved Tolerance for Activity Patient is pleasant and engaged in therapy session, demonstrating improved overall functional mobility requiring SBA-CGA from therapist. Patient able to complete standing balance activities without LOB. Patient in bed with needs in reach at end of session. Plan for Next Visit: Gait Training, Standing Balance, Fall Prevention PRECAUTIONS Fall Risk L-2-3-4-5 laminectomy with L4-5 posterior fusion, no back brace, lopez, no BLT, resting tremor, [place] SUBJECTIVE Patient sitting up in bed upon entering room,agreeable to therapy session. FUNCTIONAL STATUS most recent performance Bed Mobility Rolling: Modified Independent Supine To Sit: Supervision Sit to Supine: Supervision Scooting: Stand By Assistance Transfers Sit To Stand: Stand By Assistance (cues for hand placement at times due to pulling up on walker) Stand To Sit: Stand By Assistance Bed to Chair Contact Guard Assistance Bed To Chair Transfer Type: Stepping Bed To Chair Transfer Equipment: Wheeled Walker Gait Stand By Assistance, Additional Information patient ambulates with decreased gait speed, wide IRENA and reciprocal pattern. Gait Device: Wheeled Walker General Deviations/Observations : Flexed trunk posture, Cynthia decreased, Improper distancing from assistive device Gait Distance (feet): 200', 150' Stairs Contact Guard Assistance Stairs Device: Rail Number of Stairs: 4 CURRENT HOSPITAL COURSE Patient is an 88 year old male presenting to [facility] s/p elective L2-3-4-5 laminectomy and L4-5 posterior fusion on 07/30 at [facility] with Dr. Rhodes after diagnosis of lumbar spondylosis and stenosis. Uneventful post-op course. Patient now presents below baseline level of function and can benefit from skilled services to facilitate return to home setting. Relevant Past Medical History: Lumbar stenosis and spondylosis HOME LIVING Patient Lives With: Spouse (1 story home with basement) Assistance Available: 24-Hour (spouse is retired, 4 children that live locally) Entry To Home: Stairs, With Rail Number Of Stairs Into Home: 4 (3 steps plus threshold, 1 HR) Number Of Stairs To Bed/Bath: 0 (ranch home) Tub/Shower Type: Tub/shower combo, grab bars, stands to shower, shower chair Laundry: Spouse performs, main floor Equipment Owned: Rollator, Grab Bars- Shower, Shower Chair, Commode- Raised PRIOR FUNCTIONAL LEVEL Within Functional Limits, Required Assistance, History of Falls Assistance Required With: Laundry, Cleaning, Meals Patient reports ind with ambulation without AD. One fall noted on a ship. 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 Performs own med mgmt. Was sleeping a recliner x 2 months. Has hearing aides but does not like them. 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 THERAPY DIAGNOSIS Reduced mobility-other, Muscle Weakness (generalized), Abnormalities of gait and mobility-other, Difficulty walking-musculoskeletal TREATMENT INTERVENTIONS Gait Training (82110), Therapeutic Exercise (47390), Therapeutic Activity (44630) Timed Code Treatment (minutes): 46 Skilled Treatment Time (minutes): 46 EXERCISE Exercises Exercise Performed: Hip Abduction, LAQ (HS curls with green T band 1x10 B LE, hip abduction with green T (more content not included)... Normal [facility] THERAPY NT HNO ID: [id number] Author: KERRI DOUGHERTY OTR/L Service: Occupational Therapy Author Type: Technical Sales Consultant Type: Therapy (PT/OT/Speech/Resp) Filed: 08/12/2023 12:28 Note Text: Attestation signed by Kerri Dougherty OTR/L at 08/12/2023 12:28 PM I reviewed and agree with the documentation corresponding to this therapy visit. SIGNATURE: COURT Morrissey DATE: August 12, 2023 TIME: 12:28 PM Occupational Therapy Assisted Facility Treatment Summary SERVICE DATE: 08/12/2023 SERVICE TIME: 1005 to 1057 ROOM: [place] [address] OT 6 Clicks Score: 20 DISCHARGE RECOMMENDATIONS Home OT Recommended Discharge Disposition Comments: Pt is expected to return home with supportive family to provide 24/7 assistance as needed and home health to follow for continued OT Anticipated Discharge Needs: Family Training, Physical Assist at Home, Supervision at Home, Equipment, Home Modifications Recommended Discharge Equipment: Commode-3 in 1, ADL Kit, Hand Held Shower, Long Handled Sponge, Wheeled Walker, To Be Determined GOALS Patient will demonstrate progress with self-care, cognitive and/or coping needs identified to allow safe discharge to home with available support and/or physical assistance. Lower Body Bathing with: Stand By Assistance Lower Body Dressing with: Stand By Assistance Toilet Hygiene with: Minimal Assistance Chair Transfer with: Stand By Assistance Toilet Transfer with: Stand By Assistance Tub Transfer with: Minimal Assistance Tolerate (minutes of functional activity): 50 Functional Activity with: Stand By Assistance Progress Toward Goals: Progressing as expected Rehab Potential: Good ASSESSMENT Response to Therapy Interventions: Good Participation in Activities, Requires Encouragement to Complete Activities Pt improving in bathing and LB dressing skills this day. Pt would benefit from con't AE training. Plan for Next Visit: Bed Mobility, Chair/Commode Transfer Training, Dressing Training, Energy Conservation, Grooming Training, Sit to Stand Transfers, Standing Balance, Standing Tolerance, Toileting Instruction PRECAUTIONS Fall Risk, Lines/Tubes/Drains, Spine L-2-3-4-5 laminectomy with L4-5 posterior fusion, no back brace, lopez, no BLT, resting tremor, [place] SUBJECTIVE Pt amenable to shower - asleep upon entering room. FUNCTIONAL STATUS Activities of Daily Living Assist Level Additional Information Feeding Independent, Set Up Grooming Set Up (while seated) Bathing Upper Body Verbal Cues Only, Additional Information shower level - assist for back, V/Cs throughout for sequencing as pt would forget soap or to rinse. Bathing Lower Body Minimal Assistance, Additional Information shower level - shower chair, HHSH, grab bars in use. Pt able to bathe all aspects but buttocks (medial portions) with use of LHS for distal portions of BLEs. V/Cs throughout to inhibit BLT Dressing Upper Body Modified Independent Dressing Lower Body Minimal Assistance, Additional Information with use of AE to don/doff pants and brief, thread catheter through pant leg. Assist for donning socks d/t time constraints Toileting Moderate Assistance Instrumental Activities of Daily Living Assist Level Additional Information Meal/Beverage Prep Total Assistance Cleaning Total Assistance Laundry Total Assistance Medication Management with Strategies Mobility Assist Level Additional Information Bed Mobility Supine To Sit: Stand By Assistance using log roll technique for spinal precautions; bed flat, heavy use of rail Sit to Stand Stand By Assistance cues for hand placement Stand to Sit Stand By Assistance cues for hand placement Bed to Chair Contact Guard Assistance Bed To Chair Transfer Type: Stepping Bed To Chair Transfer Equipment: Wheeled Walker, Gait Belt Toilet/Commode Stand By Assistance Shower Contact Guard Assistance Functional Mobility Contact Guard Assistance, Stand By Assistance Functional Mobility Device: Wheeled Walker CURRENT HOSPITAL COURSE Patient is an 88 year old male presenting to [facility] s/p elective L2-3-4-5 laminectomy and L4-5 posterior fusion on 07/30 at [facility] with Dr. Rhodes after diagnosis of lumbar spondylosis and stenosis. Uneventful post-op course. Patient now presents below baseline level of function and can benefit from skilled services to facilitate return to home setting. Relevant Past Medical History: Lumbar stenosis and spondylosis HOME LIVING Patient Lives With: Spouse (1 story home with basement) Assistance Available: 24-Hour (spouse is retired, 4 children that live locally) Entry To Home: Stairs, With Rail Number Of Stairs Into Home: 4 (3 steps plus threshold, 1 HR) Number Of Stairs To Bed/Bath: 0 (ranc (more content not included)... Normal [facility] Basic metabolic 2000 panelon 08-11-2023 Anion gap [Moles/Vol] 8 mmol/L Low 9-18 [facility] Comment on above: Order Comment: Speci men Type: BLOOD SPECIMEN Ordering Facility: [facility] Address: [address] [place] [address] Performed By: #### 2 4321-2 #### [facility] CLIA [id number] [address] [place] [address] [place] Calcium [Mass/Vol] 8.6 mg/dL Normal 8.5-10.2 [facility] Comment on above: Order Comment: Speci men Type: BLOOD SPECIMEN Ordering Facility: [facility] Address: [address] [place] [address] Performed By: #### 2 4321-2 #### [facility] CLIA [id number] [address] [place] [address] [place] Chloride [Moles/Vol] 104 mmol/L Normal 97-105 [facility] Comment on above: Order Comment: Speci men Type: BLOOD SPECIMEN Ordering Facility: [facility] Address: [address] [place] [id number] Performed By: #### 2 4321-2 #### [facility] CLIA [id number] [address] [place] [address] [place] CO2 [Moles/Vol] 28 mmol/L Normal 22-30 [facility] Comment on above: Order Comment: Speci men Type: BLOOD SPECIMEN Ordering Facility: [facility] Address: [address] [place] [address] Performed By: #### 2 4321-2 #### [facility] CLIA [id number] [address] [place] [address] [place] Creatinine [Mass/Vol] 1.48 mg/dL High 0.73-1.22 [facility] Comment on above: Order Comment: Speci men Type: BLOOD SPECIMEN Ordering Facility: [facility] Address: [address] [place] [address] Performed By: #### 2 4321-2 #### [facility] CLIA [id number] [address] [place] [id number] [place] Creatinine and Glomerular filtration rate.predicted panel (S/P/Bld) 46 mL/min/1.73m??? Low >=60 [facility] Comment on above: Order Comment: Speci men Type: BLOOD SPECIMEN Ordering Facility: [facility] Address: [address] [place] [address] Result Comment: Lorrie mated Glomerular Filtration Rate (eGFR) is calculated using the 2020 CKD-EPI creatinine equation. This equation utilizes serum creatinine, sex, and age as parameters. The creatinine assay has traceable calibration to isotope dilution-mass spectrometry. Refer to KDIGO guidelines for clinical interpretation. In patients with unstable renal function, e.g. those with acute kidney injury, the eGFR may not accurately reflect actual GFR. Performed By: #### 2 4321-2 #### [facility] CLIA [id number] [address] [place] [address] [place] Glucose [Mass/Vol] 103 mg/dL High 74-99 [facility] Comment on above: Order Comment: Speci men Type: BLOOD SPECIMEN Ordering Facility: [facility] Address: [address] [place] [id number] Result Comment: The [place] Diabetes Association (ADA) provides guidance for cutoff values for fasting glucose and random glucose. The ADA defines fasting as no caloric intake for at least 8 hours. Fasting plasma glucose results between 100 to 125 mg/dL indicate increased risk for diabetes (prediabetes). Fasting plasma glucose results greater than or equal to 126 mg/dL meet the criteria for diagnosis of diabetes. In the absence of unequivocal hyperglycemia, results should be confirmed by repeat testing. In a patient with classic symptoms of hyperglycemia or hyperglycemic crisis, random plasma glucose results greater than or equal to 200 mg/dL meet the criteria for diagnosis of diabetes. Reference: Standards of Medical Care in Diabetes 2016, [place] [employer] Association. Diabetes Care. 2016.39(Suppl 1). Performed By: #### 2 4321-2 #### [facility] CLIA [id number] [address] [place] [address] [place] Potassium [Moles/Vol] 4.1 mmol/L Normal 3.7-5.1 [facility] Comment on above: Order Comment: Speci men Type: BLOOD SPECIMEN Ordering Facility: [facility] Address: [address] [place] [address] Performed By: #### 2 4321-2 #### [facility] CLIA [id number] [address] [place] [address] [place] Sodium [Moles/Vol] 140 mmol/L Normal 136-144 [facility] Comment on above: Order Comment: Speci men Type: BLOOD SPECIMEN Ordering Facility: [facility] Address: [address] [place] [id number] Performed By: #### 2 4321-2 #### [facility] CLIA [id number] [address] [place] [address] [place] Urea nitrogen [Mass/Vol] 15 mg/dL Normal 9-24 [facility] Comment on above: Order Comment: Speci men Type: BLOOD SPECIMEN Ordering Facility: [facility] Address: [address] [place] [id number] Performed By: #### 2 4321-2 #### [facility] CLIA [id number] [address] [place] [address] [place] CBC panel Auto (Bld)on 08-10 Erythrocyte distribution width (RBC) [Ratio] 13.8 % Normal 11.5-15.0 [facility] Comment on above: Order Comment: Speci men Type: BLOOD SPECIMEN Ordering Facility: [facility] Address: [address] [place] [address] Performed By: #### 5 8410-2 #### [facility] CLIA [id number] [address] [place] [address] [place] Hematocrit (Bld) [Volume fraction] 31.1 % Low 39.0-51.0 [facility] Comment on above: Order Comment: Speci men Type: BLOOD SPECIMEN Ordering Facility: [facility] Address: [address] [place] [address] Performed By: #### 5 8410-2 #### [facility] CLIA [id number] [address] [place] [address] [facility] [place] Hemoglobin (Bld) [Mass/Vol] 9.8 g/dL Low 13.0-17.0 [facility] Comment on above: Order Comment: Speci men Type: BLOOD SPECIMEN Ordering Facility: [facility] Address: [address] [place] [address] Performed By: #### 5 8410-2 #### [facility] CLIA [id number] [address] [place] [address] [place] MCH (RBC) [Entitic mass] 29.9 pg Normal 26.0-34.0 [facility] Comment on above: Order Comment: Speci men Type: BLOOD SPECIMEN Ordering Facility: [facility] Address: [address] [place] [address] Performed By: #### 5 8410-2 #### [facility] CLIA [id number] [address] [place] [address] [place] MCHC (RBC) [Mass/Vol] 31.5 g/dL Normal 30.5-36.0 [facility] Comment on above: Order Comment: Speci men Type: BLOOD SPECIMEN Ordering Facility: [facility] Address: [address] [place] [address] Performed By: #### 5 8410-2 #### [facility] CLIA [id number] [address] [place] [address] [place] MCV (RBC) [Entitic vol] 94.8 fL Normal 80.0-100.0 [facility] Comment on above: Order Comment: Speci men Type: BLOOD SPECIMEN Ordering Facility: [facility] Address: [address] [place] [address] Performed By: #### 5 8410-2 #### [facility] CLIA [id number] [address] [place] [address] [place] Platelet mean volume (Bld) [Entitic vol] 9.5 fL Normal 9.0-12.7 [facility] Comment on above: Order Comment: Speci men Type: BLOOD SPECIMEN Ordering Facility: [facility] Address: [address] [place] [address] Performed By: #### 5 8410-2 #### [facility] CLIA [id number] [address] [place] [address] [place] Platelets (Bld) [#/Vol] 249 10*3/uL Normal 150-400 [facility] Comment on above: Order Comment: Speci men Type: BLOOD SPECIMEN Ordering Facility: [facility] Address: [address] [place] [address] Performed By: #### 5 8410-2 #### [facility] CLIA [id number] [address] [place] [address] [place] RBC (Bld) [#/Vol] 3.28 10*6/uL Low 4.20-6.00 [facility] Comment on above: Order Comment: Speci men Type: BLOOD SPECIMEN Ordering Facility: [facility] Address: [address] [place] [address] Performed By: #### 5 8410-2 #### [facility] CLIA [id number] [address] [place] [address] [place] WBC (Bld) [#/Vol] 7.53 10*3/uL Normal 3.70-11.00 [facility] Comment on above: Order Comment: Speci men Type: BLOOD SPECIMEN Ordering Facility: [facility] Address: [address] [place] [address] Performed By: #### 5 [id number] #### [facility] CLIA [id number] [address] [place] [address] [facility] SOCIAL WORKon 08-11-2023 SOCIAL WORK HNO ID: [id number] Author: TAMMY COURTNEY LSW Service: Social Work Author Type: Morgue Keeper Type: Social Work Filed: 08/11/2023 18:24 Note Text: Summary: MICHAEL rounding/Appt SOCIAL WORK PROGRESS NOTE Name: Ciro Sales Patient's Manju asking about appt with Dr Gaona. States patient will need w/ch transport. She told daughter Serena that MICHAEL wants to schedule a conference. MICHAEL will call Serena again to schedule. 1250: Scheduled [facility] Wheelchair/Princess to warp picker patient on 08/12 at 0745 for [address] Ta Gaona, [address] [place], [place] [id number]. [phone]. Signature: ANTHONY Rodriguez Date: August 11, 2023 Time: 12:42 PM Normal [facility] THERAPY NTon 08-11-2023 THERAPY NT HNO ID: [id number] Author: GLENDY DONOVAN PT Service: Physical Therapy Author Type: Regional Account Executive Type: Therapy (PT/OT/Speech/Resp) Filed: 08/11/2023 17:02 Note Text: Attestation signed by Glendy Donovan PT at 08/11/2023 5:02 PM I reviewed and agree with the documentation corresponding to this therapy visit. SIGNATURE: Glendy Donovan PT DATE: August 11, 2023 TIME: 5:02 PM Physical Therapy Assisted Facility Treatment Summary SERVICE DATE: 08/11/2023 SERVICE TIME: 1530 to 1619 ROOM: [place] [address] PT 6 Clicks Score: 23 DISCHARGE RECOMMENDATIONS Home PT Recommended Discharge Disposition Comments: Home PT with / supervision and assist from spouse and PRN from children as needed followed by outpatient therapy Anticipated Discharge Needs: Family Training, Physical Assist at Home, Supervision at Home, Equipment, Home Modifications Recommended Discharge Equipment: Commode-3 in 1, Hand Held Shower, Wheeled Walker, To Be Determined (B HRs to enter home) GOALS Patient will demonstrate progress with functional mobility to allow safe discharge to home with available support and/or physical assistance. Able to Perform HEP with: Independent Transfer Sit to/from Stand with: Modified Independent Ambulate with: Stand By Assistance Distance: 150+ Device: Wheeled Walker Ambulate Up and Down Steps with: Contact Guard Assistance Number of Steps: 4 Device: Rail ROM: BLE strength to WFL Goal: 10 MWT walking speed to at least 0.75 m/s Rehab Potential: Good Progress Toward Goals: Progressing as expected ASSESSMENT Response to Therapy Interventions: Good Participation in Activities Patient continues to motivated and states he likes doing therapy because he feels that he need it and it is helping him. Plan for Next Visit: Gait Training, Standing Balance PRECAUTIONS Fall Risk, Lines/Tubes/Drains, Spine L-2-3-4-5 laminectomy with L4-5 posterior fusion, no back brace, lopez, no BLT, resting tremor, [place] SUBJECTIVE i appreciate you stopping by FUNCTIONAL STATUS Bed Mobility Rolling: Modified Independent Supine To Sit: Supervision Sit to Supine: Supervision Scooting: Stand By Assistance Transfers Sit To Stand: Stand By Assistance Stand To Sit: Stand By Assistance Bed to Chair Stand By Assistance Bed To Chair Transfer Type: Stepping Bed To Chair Transfer Equipment: Gait Belt, Wheeled Walker Gait Stand By Assistance Gait Device: Wheeled Walker General Deviations/Observations : Flexed trunk posture, Improper distancing from assistive device Gait Distance (feet): 200+ Stairs Contact Guard Assistance Stairs Device: Rail (once with bilateral: once with left ascendding) Number of Stairs: 8 CURRENT HOSPITAL COURSE Patient is an 88 year old male presenting to [facility] s/p elective L2-3-4-5 laminectomy and L4-5 posterior fusion on 07/30 at [facility] with Dr. Rhodes after diagnosis of lumbar spondylosis and stenosis. Uneventful post-op course. Patient now presents below baseline level of function and can benefit from skilled services to facilitate return to home setting. Relevant Past Medical History: Lumbar stenosis and spondylosis HOME LIVING Patient Lives With: Spouse (1 story home with basement) Assistance Available: 24-Hour (spouse is retired, 4 children that live locally) Entry To Home: Stairs, With Rail Number Of Stairs Into Home: 4 (3 steps plus threshold, 1 HR) Number Of Stairs To Bed/Bath: 0 (ranch home) Tub/Shower Type: Tub/shower combo, grab bars, stands to shower, shower chair Laundry: Spouse performs, main floor Equipment Owned: Rollator, Grab Bars- Shower, Shower Chair, Commode- Raised PRIOR FUNCTIONAL LEVEL Within Functional Limits, Required Assistance, History of Falls Assistance Required With: Laundry, Cleaning, Meals Patient reports ind with ambulation without AD. One fall noted on a ship. 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 Performs own med mgmt. Was sleeping a recliner x 2 months. Has hearing aides but does not like them. 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 THERAPY DIAGNOSIS Reduced mobility-other, Muscle Weakness (generalized), Abnormalities of gait and mobility-other, Difficulty walking-musculoskeletal TREATMENT INTERVENTIONS Therapeutic Exercise (19434), Gait Training (91339) Timed Code Treatment (minutes): 49 Skilled Treatment Time (minutes): 49 EXERCISE Exercises Exercise: seated march green T-band x20, hip addcution x10 green T-band, seated hip abduction green T-band x10, LAQ (more content not included)... Normal [facility] THERAPY NT HNO ID: [id number] Author: CHIQUIS MTZ OTR/L Service: Occupational Therapy Author Type: Technical Sales Consultant Type: Therapy (PT/OT/Speech/Resp) Filed: 08/11/2023 17:44 Note Text: Attestation signed by Chiquis Mtz OTR/L at 08/11/2023 5:44 PM I reviewed and agree with the documentation corresponding to this therapy visit. SIGNATURE: COURT Amato DATE: August 11, 2023 TIME: 5:44 PM Occupational Therapy Assisted Facility Treatment Summary SERVICE DATE: 08/11/2023 SERVICE TIME: 1302 to 1342 ROOM: [place] [address] OT 6 Clicks Score: 19 DISCHARGE RECOMMENDATIONS Home OT Recommended Discharge Disposition Comments: Pt is expected to return home with supportive family to provide 24/7 assistance as needed and home health to follow for continued OT Anticipated Discharge Needs: Family Training, Physical Assist at Home, Supervision at Home, Equipment, Home Modifications Recommended Discharge Equipment: Commode-3 in 1, ADL Kit, Hand Held Shower, Long Handled Sponge, Wheeled Walker, To Be Determined GOALS Patient will demonstrate progress with self-care, cognitive and/or coping needs identified to allow safe discharge to home with available support and/or physical assistance. Lower Body Bathing with: Stand By Assistance Lower Body Dressing with: Stand By Assistance Toilet Hygiene with: Minimal Assistance Chair Transfer with: Stand By Assistance Toilet Transfer with: Stand By Assistance Tub Transfer with: Minimal Assistance Tolerate (minutes of functional activity): 50 Functional Activity with: Stand By Assistance Progress Toward Goals: Progressing as expected Rehab Potential: Good ASSESSMENT Response to Therapy Interventions: Good Participation in Activities, Requires Encouragement to Complete Activities Pt requiring encouragement to participate but improving in AE use this day. Pt would benefit from continued practice with AE prior to d/c. Plan for Next Visit: Bed Mobility, Chair/Commode Transfer Training, Dressing Training, Energy Conservation, Grooming Training, Sit to Stand Transfers, Standing Balance, Standing Tolerance, Toileting Instruction PRECAUTIONS Fall Risk, Lines/Tubes/Drains, Spine L-2-3-4-5 laminectomy with L4-5 posterior fusion, no back brace, lopez, no BLT, resting tremor, [place] SUBJECTIVE Pt requiring some encouragement to participate in therapy. FUNCTIONAL STATUS Activities of Daily Living Assist Level Additional Information Feeding Independent, Set Up Grooming Set Up (while seated) Bathing Upper Body Set Up Bathing Lower Body Maximal Assistance Dressing Upper Body Modified Independent Dressing Lower Body Minimal Assistance, Additional Information with use of AE to don/doff pants and brief, thread catheter through pant leg Toileting Moderate Assistance BSC over commode. Pt incontinent of bowel but able to complete BM on commode. Participating in posterior hygiene but requiring assist for thoroughness. Instrumental Activities of Daily Living Assist Level Additional Information Meal/Beverage Prep Total Assistance Cleaning Total Assistance Laundry Total Assistance Medication Management with Strategies Mobility Assist Level Additional Information Bed Mobility Supine To Sit: Contact Guard Assistance, Additional Information Sit to Stand Stand By Assistance cues for hand placement Stand to Sit Stand By Assistance cues for hand placement Bed to Chair Contact Guard Assistance Bed To Chair Transfer Type: Stepping Bed To Chair Transfer Equipment: Wheeled Walker, Gait Belt Toilet/Commode Stand By Assistance using commode frame over toilet in bathroom Shower Functional Mobility Contact Guard Assistance, Stand By Assistance Functional Mobility Device: Wheeled Walker CURRENT HOSPITAL COURSE Patient is an 88 year old male presenting to [facility] s/p elective L2-3-4-5 laminectomy and L4-5 posterior fusion on 07/30 at [facility] with Dr. Rhodes after diagnosis of lumbar spondylosis and stenosis. Uneventful post-op course. Patient now presents below baseline level of function and can benefit from skilled services to facilitate return to home setting. Relevant Past Medical History: Lumbar stenosis and spondylosis HOME LIVING Patient Lives With: Spouse (1 story home with basement) Assistance Available: 24-Hour (spouse is retired, 4 children that live locally) Entry To Home: Stairs, With Rail Number Of Stairs Into Home: 4 (3 steps plus threshold, 1 HR) Number Of Stairs To Bed/Bath: 0 (ranch home) Tub/Shower Type: Tub/shower combo, grab bars, stands to shower, shower chair Laundry: Spouse performs, main floor Equipment Owned: Rollator, Grab Bars- Shower, Shower Chair, Commode- Raised PRIOR FUNCTIONAL LEVEL Within Functional Limits, Requ (more content not included)... Normal [facility] THERAPY NT HNO ID: [id number] Author: GLENDY DONOVAN, PT Service: Physical Therapy Author Type: Regional Account Executive Type: Therapy (PT/OT/Speech/Resp) Filed: 08/11/2023 12:31 Note Text: Attestation signed by Glendy Donovan, PT at 08/11/2023 12:31 PM I reviewed and agree with the documentation corresponding to this therapy visit. SIGNATURE: Glendy Donovan, PT DATE: August 11, 2023 TIME: 12:31 PM Physical Therapy Assisted Facility Treatment Summary SERVICE DATE: 08/11/2023 SERVICE TIME: 844 to 926 ROOM: [place] [address] PT 6 Clicks Score: 23 DISCHARGE RECOMMENDATIONS Home PT Recommended Discharge Disposition Comments: Home PT with 11/11 supervision and assist from spouse and PRN from children as needed followed by outpatient therapy Anticipated Discharge Needs: Family Training, Physical Assist at Home, Supervision at Home, Equipment, Home Modifications Recommended Discharge Equipment: Commode-3 in 1, Hand Held Shower, Wheeled Walker, To Be Determined (B HRs to enter home) GOALS Patient will demonstrate progress with functional mobility to allow safe discharge to home with available support and/or physical assistance. Able to Perform HEP with: Independent Transfer Sit to/from Stand with: Modified Independent Ambulate with: Stand By Assistance Distance: 150+ Device: Wheeled Walker Ambulate Up and Down Steps with: Contact Guard Assistance Number of Steps: 4 Device: Rail ROM: BLE strength to WFL Goal: 10 MWT walking speed to at least 0.75 m/s Rehab Potential: Good Progress Toward Goals: Progressing as expected ASSESSMENT Response to Therapy Interventions: Good Participation in Activities Improved participation this session as patients walks around whole unit completes satirs and performs a few exercises. Plan for Next Visit: Gait Training, Stair Training PRECAUTIONS Fall Risk, Lines/Tubes/Drains, Spine L-2-3-4-5 laminectomy with L4-5 posterior fusion, no back brace, lopez, no BLT, resting tremor, [place] SUBJECTIVE I had a lot of company yesterday FUNCTIONAL STATUS Bed Mobility Rolling: Modified Independent Supine To Sit: Supervision Sit to Supine: Supervision Scooting: Stand By Assistance Transfers Sit To Stand: Stand By Assistance Stand To Sit: Stand By Assistance Bed to Chair Stand By Assistance Bed To Chair Transfer Type: Stepping Bed To Chair Transfer Equipment: Gait Belt, Wheeled Walker Gait Stand By Assistance Gait Device: Wheeled Walker General Deviations/Observations : Flexed trunk posture, Improper distancing from assistive device Gait Distance (feet): 200+ Stairs Contact Guard Assistance Stairs Device: Rail (once with bilateral: once with left ascendding) Number of Stairs: 8 CURRENT HOSPITAL COURSE Patient is an 88 year old male presenting to [facility] s/p elective L2-3-4-5 laminectomy and L4-5 posterior fusion on 07/30 at [facility] with Dr. Rhodes after diagnosis of lumbar spondylosis and stenosis. Uneventful post-op course. Patient now presents below baseline level of function and can benefit from skilled services to facilitate return to home setting. Relevant Past Medical History: Lumbar stenosis and spondylosis HOME LIVING Patient Lives With: Spouse (1 story home with basement) Assistance Available: 24-Hour (spouse is retired, 4 children that live locally) Entry To Home: Stairs, With Rail Number Of Stairs Into Home: 4 (3 steps plus threshold, 1 HR) Number Of Stairs To Bed/Bath: 0 (ranch home) Tub/Shower Type: Tub/shower combo, grab bars, stands to shower, shower chair Laundry: Spouse performs, main floor Equipment Owned: Rollator, Grab Bars- Shower, Shower Chair, Commode- Raised PRIOR FUNCTIONAL LEVEL Within Functional Limits, Required Assistance, History of Falls Assistance Required With: Laundry, Cleaning, Meals Patient reports ind with ambulation without AD. One fall noted on a ship. 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 Performs own med mgmt. Was sleeping a recliner x 2 months. Has hearing aides but does not like them. 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 THERAPY DIAGNOSIS Reduced mobility-other, Muscle Weakness (generalized), Abnormalities of gait and mobility-other, Difficulty walking-musculoskeletal TREATMENT INTERVENTIONS Therapeutic Exercise (89681), Gait Training (81307), Therapeutic Activity (71592) Timed Code Treatment (minutes): 42 Skilled Treatment Time (minutes): 42 Exercise Exercise: SLR x10, supine hip abduction x10, SAQ x10 TRAINING AND EDUCATION PROVIDED Anatom (more content not included)... Normal [facility] NURSING PROGon 08-10-2023 NURSING PROG HNO ID: [id number] Author: SUKHI DELATORRE RN Service: Nursing Author Type: Registered Nurse Type: Nursing Progress Note Filed: 08/10/2023 15:13 Note Text: Patient resting quietly in bed. All treatments and procedures were explained. Patient verbalized understanding. Patient assisted up to BR with use of gait belt and walker. Patient needs encouragement to assist getting self to side of bed. Patient incontinent of a small brown unformed stool. Will continue to monitor stools. Patient requests to sit for a few minutes. Pt told to pull red string when he was ready to get up. Patient verbalized understanding. Informed patient that labs will be redrawn tomorrow morning. No questions or concerns were voiced at this time Normal [facility] NURSING PROGon 08-09-2023 NURSING PROG HNO ID: [id number] Author: SUKHI DELATORRE RN Service: Nursing Author Type: Registered Nurse Type: Nursing Progress Note Filed: 08/09/2023 09:42 Note Text: Patient sitting up in chair at bedside. All treatments and procedures were explained. Patient verbalized understanding. Pt hear of hearing. No questions or concerns were voiced at this time. Normal [facility] THERAPY NTon 08-09-2023 THERAPY NT HNO ID: [id number] Author: YULIYA CAMERON, PT Service: Physical Therapy Author Type: Physical Therapist Type: Therapy (PT/OT/Speech/Resp) Filed: 08/09/2023 16:12 Note Text: Physical Therapy Assisted Facility Treatment Summary SERVICE DATE: 08/09/2023 SERVICE TIME: 1321 to 1350 ROOM: [place] [address] PT 6 Clicks Score: 23 DISCHARGE RECOMMENDATIONS Home PT Recommended Discharge Disposition Comments: Home PT with 24/7 supervision and assist from spouse and PRN from children as needed followed by outpatient therapy Anticipated Discharge Needs: Family Training, Physical Assist at Home, Supervision at Home, Equipment, Home Modifications Recommended Discharge Equipment: Commode-3 in 1, Hand Held Shower, Wheeled Walker, To Be Determined (B HRs to enter home) GOALS Patient will demonstrate progress with functional mobility to allow safe discharge to home with available support and/or physical assistance. Able to Perform HEP with: Independent Transfer Sit to/from Stand with: Modified Independent Ambulate with: Stand By Assistance Distance: 150+ Device: Wheeled Walker Ambulate Up and Down Steps with: Contact Guard Assistance Number of Steps: 4 Device: Rail ROM: BLE strength to WFL Goal: 10 MWT walking speed to at least 0.75 m/s Rehab Potential: Good Progress Toward Goals: Progressing as expected ASSESSMENT Response to Therapy Interventions: Requires Encouragement to Complete Activities Patient minimally willing to participate this date, if at all, with multiple attempts made just to initiate therapy session, with patient only willing to ambulate this date, not able to perform any therapeutic exercises, and requesting to return to bed after session, though he returns to the chair after session. Spouse present initially to attempt to motivate patient. Plan for Next Visit: Gait Training, Stair Training PRECAUTIONS Fall Risk, Lines/Tubes/Drains, Spine L-2-3-4-5 laminectomy with L4-5 posterior fusion, no back brace, lopez, no BLT, resting tremor, [place] SUBJECTIVE I'm not walking again. I already walked. Don't make me do anything. I won't. FUNCTIONAL STATUS Bed Mobility Rolling: Modified Independent Supine To Sit: Supervision Sit to Supine: Supervision Scooting: Stand By Assistance Transfers Sit To Stand: Stand By Assistance Stand To Sit: Stand By Assistance Bed to Chair Stand By Assistance Bed To Chair Transfer Type: Stepping Bed To Chair Transfer Equipment: Gait Belt, Wheeled Walker Gait Stand By Assistance Gait Device: Wheeled Walker Gait Distance (feet): 500+ Stairs Contact Guard Assistance Stairs Device: Rail (Right ascending handrail) Number of Stairs: 8 CURRENT HOSPITAL COURSE Patient is an 88 year old male presenting to [facility] s/p elective L2-3-4-5 laminectomy and L4-5 posterior fusion on 07/30 at [facility] with Dr. Rhodes after diagnosis of lumbar spondylosis and stenosis. Uneventful post-op course. Patient now presents below baseline level of function and can benefit from skilled services to facilitate return to home setting. Relevant Past Medical History: Lumbar stenosis and spondylosis HOME LIVING Patient Lives With: Spouse (1 story home with basement) Assistance Available: 24-Hour (spouse is retired, 4 children that live locally) Entry To Home: Stairs, With Rail Number Of Stairs Into Home: 4 (3 steps plus threshold, 1 HR) Number Of Stairs To Bed/Bath: 0 (ranch home) Tub/Shower Type: Tub/shower combo, grab bars, stands to shower, shower chair Laundry: Spouse performs, main floor Equipment Owned: Rollator, Grab Bars- Shower, Shower Chair, Commode- Raised PRIOR FUNCTIONAL LEVEL Within Functional Limits, Required Assistance, History of Falls Assistance Required With: Laundry, Cleaning, Meals Patient reports ind with ambulation without AD. One fall noted on a ship. 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 Performs own med mgmt. Was sleeping a recliner x 2 months. Has hearing aides but does not like them. 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 THERAPY DIAGNOSIS Reduced mobility-other, Muscle Weakness (generalized), Abnormalities of gait and mobility-other, Difficulty walking-musculoskeletal TREATMENT INTERVENTIONS Gait Training (01766) Timed Code Treatment (minutes): 29 Skilled Treatment Time (minutes): 29 EXERCISE None performed this session due to patient refusal TRAINING AND EDUCATION PROVIDED Discharge Planning, Disease Specific Education, Expected Functional Level, Falls Prevention, Gait Pattern, Reduction of Deviations, Home Safety, Home Set-up/Modifications THERAPEUTIC SKILLS USED Activity Dosing, Cuing Tactile, Cues for Sequencing/Proper Technique for (more content not included)... Normal [facility] THERAPY NT HNO ID: [id number] Author: CARLOS ALLISON OTA/L Service: Occupational Therapy Author Type: Technical Sales Consultant Type: Therapy (PT/OT/Speech/Resp) Filed: 08/09/2023 12:23 Note Text: Attestation signed by Brooke Ruiz OTR/L at 08/09/2023 12:44 PM I reviewed and agree with the documentation corresponding to this therapy visit. SIGNATURE: COURT Arora DATE: August 09, 2023 TIME: 12:44 PM Occupational Therapy Assisted Facility Treatment Summary SERVICE DATE: 08/09/2023 SERVICE TIME: 0952 to 1016 ROOM: [place] [address] OT 6 Clicks Score: 18 DISCHARGE RECOMMENDATIONS Home OT Recommended Discharge Disposition Comments: Pt is expected to return home with supportive family to provide 24 assistance as needed and home health to follow for continued OT Anticipated Discharge Needs: Family Training, Physical Assist at Home, Supervision at Home, Equipment, Home Modifications Recommended Discharge Equipment: Commode-3 in 1, ADL Kit, Hand Held Shower, Long Handled Sponge, Wheeled Walker, To Be Determined GOALS Patient will demonstrate progress with self-care, cognitive and/or coping needs identified to allow safe discharge to home with available support and/or physical assistance. Lower Body Bathing with: Stand By Assistance Lower Body Dressing with: Stand By Assistance Toilet Hygiene with: Minimal Assistance Chair Transfer with: Stand By Assistance Toilet Transfer with: Stand By Assistance Tub Transfer with: Minimal Assistance Tolerate (minutes of functional activity): 50 Functional Activity with: Stand By Assistance Progress Toward Goals: Progressing as expected Rehab Potential: Good ASSESSMENT Response to Therapy Interventions: Limited Participation, Requires Encouragement to Complete Activities Pt with limited participation this day - refusing most ADLs, transfering to bed d/t having been up for 2 hours, most exercise. Pt educated on importance of participation in therapy with pt verbalizing understanding, agreeing to some LB dressing. Pt would benefit from continued LB dressing and bathing training to reduce caregiver burden upon d/c and increase IND in self-care tasks. Plan for Next Visit: Bed Mobility, Chair/Commode Transfer Training, Dressing Training, Energy Conservation, Grooming Training, Sit to Stand Transfers, Standing Balance, Standing Tolerance, Toileting Instruction PRECAUTIONS Fall Risk, Lines/Tubes/Drains, Spine L-2-3-4-5 laminectomy with L4-5 posterior fusion, no back brace, lopez, no BLT, resting tremor, [place] SUBJECTIVE Pt declining most ADLs but requesting to ambulate. FUNCTIONAL STATUS Activities of Daily Living Assist Level Additional Information Feeding Independent, Set Up Grooming Set Up (while seated) Bathing Upper Body Set Up Bathing Lower Body Maximal Assistance Dressing Upper Body Modified Independent Dressing Lower Body Moderate Assistance with use of AE to don pants. Toileting Maximal Assistance Instrumental Activities of Daily Living Assist Level Additional Information Meal/Beverage Prep Total Assistance Cleaning Total Assistance Laundry Total Assistance Medication Management with Strategies Mobility Assist Level Additional Information Bed Mobility Supine To Sit: Contact Guard Assistance, Additional Information Sit to Stand Stand By Assistance cues for hand placement Stand to Sit Stand By Assistance cues for hand placement Bed to Chair Contact Guard Assistance Bed To Chair Transfer Type: Stepping Bed To Chair Transfer Equipment: Wheeled Walker, Gait Belt Toilet/Commode Stand By Assistance Shower Functional Mobility Contact Guard Assistance, Stand By Assistance Functional Mobility Device: Wheeled Walker CURRENT HOSPITAL COURSE Patient is an 88 year old male presenting to [facility] s/p elective L2-3-4-5 laminectomy and L4-5 posterior fusion on 07/30 at [facility] with Dr. Rhodes after diagnosis of lumbar spondylosis and stenosis. Uneventful post-op course. Patient now presents below baseline level of function and can benefit from skilled services to facilitate return to home setting. Relevant Past Medical History: Lumbar stenosis and spondylosis HOME LIVING Patient Lives With: Spouse (1 story home with basement) Assistance Available: 24-Hour (spouse is retired, 4 children that live locally) Entry To Home: Stairs, With Rail Number Of Stairs Into Home: 4 (3 steps plus threshold, 1 HR) Number Of Stairs To Bed/Bath: 0 (ranch home) Tub/Shower Type: Tub/shower combo, grab bars, stands to shower, shower chair Laundry: Spouse performs, main floor Equipment Owned: Rollator, Grab Bars- Shower, Shower Chair, Commode- Raised PRIOR FUNCTIONAL LEVEL Within Functional Limits, Required Assistance, History of (more content not included)... Normal [facility] SOCIAL WORKon 08-08-2023 SOCIAL WORK HNO ID: [id number] Author: TAMMY COURTNEY LSW Service: Social Work Author Type: Morgue Keeper Type: Social Work Filed: 08/11/2023 17:24 Note Text: Summary: Family Call SOCIAL WORK PROGRESS NOTE Name: Ciro Sales Phoned patient's Manju re: conference. She is very agreeable. Says she's comfortable with having patient home, but thinks it would be good to meet. To call daughter Serena to see what day is good for her. Attempted to call daughter x 2. Line is busy. Signature: ANTHONY Rodriguez Date: August 08, 2023 Time: 4:08 PM Normal [facility] THERAPY NTon 08-08-2023 THERAPY NT HNO ID: [id number] Author: YULIYA CAMERON PT Service: Physical Therapy Author Type: Regional Account Executive Type: Therapy (PT/OT/Speech/Resp) Filed: 08/08/2023 15:23 Note Text: Attestation signed by Yuliya Cameron, PT at 08/08/2023 3:23 PM I reviewed and agree with the documentation corresponding to this therapy visit. SIGNATURE: Yuliya Cameron PT DATE: August 08, 2023 TIME: 3:23 PM Physical Therapy Assisted Facility Treatment Summary SERVICE DATE: 08/08/2023 SERVICE TIME: 1425 to 1502 ROOM: [place] [address] PT 6 Clicks Score: 20 DISCHARGE RECOMMENDATIONS Home PT Recommended Discharge Disposition Comments: Home PT with 11/11 supervision and assist from spouse and PRN from children as needed followed by outpatient therapy Anticipated Discharge Needs: Family Training, Physical Assist at Home, Supervision at Home, Equipment, Home Modifications Recommended Discharge Equipment: Commode-3 in 1, Hand Held Shower, Wheeled Walker, To Be Determined (B HRs to enter home) GOALS Patient will demonstrate progress with functional mobility to allow safe discharge to home with available support and/or physical assistance. Able to Perform HEP with: Independent Transfer Sit to/from Stand with: Modified Independent Ambulate with: Stand By Assistance Distance: 150+ Device: Wheeled Walker Ambulate Up and Down Steps with: Contact Guard Assistance Number of Steps: 4 Device: Rail ROM: BLE strength to WFL Goal: 10 MWT walking speed to at least 0.75 m/s Rehab Potential: Good Progress Toward Goals: Progressing as expected ASSESSMENT Response to Therapy Interventions: Good Participation in Activities Patient demonstrates good tolerance to all exercises this session. Plan for Next Visit: Gait Training, Standing Tolerance, Exercise Instruction/Handout PRECAUTIONS Fall Risk, Lines/Tubes/Drains, Spine L-2-3-4-5 laminectomy with L4-5 posterior fusion, no back brace, lopez, no BLT, resting tremor, [place] SUBJECTIVE They sure keep you busy around here FUNCTIONAL STATUS Bed Mobility Rolling: Modified Independent Supine To Sit: Supervision Sit to Supine: Supervision Scooting: Contact Guard Assistance Transfers Sit To Stand: Stand By Assistance Stand To Sit: Stand By Assistance Bed to Chair Contact Guard Assistance Bed To Chair Transfer Type: Stepping Bed To Chair Transfer Equipment: Gait Belt, Wheeled Walker Gait Contact Guard Assistance Gait Device: Wheeled Walker General Deviations/Observations : Flexed trunk posture, Cynthia decreased, Improper distancing from assistive device Gait Distance (feet): 100, 80 Stairs Contact Guard Assistance Stairs Device: Rail (Right ascending handrail) Number of Stairs: 8 CURRENT HOSPITAL COURSE Patient is an 88 year old male presenting to [facility] s/p elective L2-3-4-5 laminectomy and L4-5 posterior fusion on 07/30 at [facility] with Dr. Rhodes after diagnosis of lumbar spondylosis and stenosis. Uneventful post-op course. Patient now presents below baseline level of function and can benefit from skilled services to facilitate return to home setting. Relevant Past Medical History: Lumbar stenosis and spondylosis HOME LIVING Patient Lives With: Spouse (1 story home with basement) Assistance Available: 24-Hour (spouse is retired, 4 children that live locally) Entry To Home: Stairs, With Rail Number Of Stairs Into Home: 4 (3 steps plus threshold, 1 HR) Number Of Stairs To Bed/Bath: 0 (ranch home) Tub/Shower Type: Tub/shower combo, grab bars, stands to shower, shower chair Laundry: Spouse performs, main floor Equipment Owned: Rollator, Grab Bars- Shower, Shower Chair, Commode- Raised PRIOR FUNCTIONAL LEVEL Within Functional Limits, Required Assistance, History of Falls Assistance Required With: Laundry, Cleaning, Meals Patient reports ind with ambulation without AD. One fall noted on a ship. 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 Performs own med mgmt. Was sleeping a recliner x 2 months. Has hearing aides but does not like them. 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 THERAPY DIAGNOSIS Reduced mobility-other, Muscle Weakness (generalized), Abnormalities of gait and mobility-other, Difficulty walking-musculoskeletal TREATMENT INTERVENTIONS Therapeutic Exercise (80114), Gait Training (69459) Timed Code Treatment (minutes): 37 Skilled Treatment Time (minutes): 37 Exercise Exercise: standing june x20, standing hip abduction x10, standing hip extension x10, standing hamstring curl x10, STS x5 TRAINI (more content not included)... Normal [facility] THERAPY NT HNO ID: [id number] Author: YULIYA CAMERON PT Service: Physical Therapy Author Type: Regional Account Executive Type: Therapy (PT/OT/Speech/Resp) Filed: 08/08/2023 13:35 Note Text: Attestation signed by Yuliya Cameron PT at 08/08/2023 1:35 PM I reviewed and agree with the documentation corresponding to this therapy visit. SIGNATURE: Yuliya Cameron PT DATE: August 08, 2023 TIME: 1:35 PM Physical Therapy Assisted Facility Treatment Summary SERVICE DATE: 08/08/2023 SERVICE TIME: 1102 to 1144 ROOM: [place] [address] PT 6 Clicks Score: 20 DISCHARGE RECOMMENDATIONS Home PT Recommended Discharge Disposition Comments: Home PT with 11/11 supervision and assist from spouse and PRN from children as needed followed by outpatient therapy Anticipated Discharge Needs: Family Training, Physical Assist at Home, Supervision at Home, Equipment, Home Modifications Recommended Discharge Equipment: Commode-3 in 1, Hand Held Shower, Wheeled Walker, To Be Determined (B HRs to enter home) GOALS Patient will demonstrate progress with functional mobility to allow safe discharge to home with available support and/or physical assistance. Able to Perform HEP with: Independent Transfer Sit to/from Stand with: Modified Independent Ambulate with: Stand By Assistance Distance: 150+ Device: Wheeled Walker Ambulate Up and Down Steps with: Contact Guard Assistance Number of Steps: 4 Device: Rail ROM: BLE strength to WFL Goal: 10 MWT walking speed to at least 0.75 m/s Rehab Potential: Good Progress Toward Goals: Progressing as expected ASSESSMENT Response to Therapy Interventions: Good Participation in Activities Patient able to completed all seated exercises with resistance this session with minimal fatigue. Plan for Next Visit: Gait Training, Standing Tolerance, Stair Training PRECAUTIONS Fall Risk, Lines/Tubes/Drains, Spine L-2-3-4-5 laminectomy with L4-5 posterior fusion, no back brace, lopez, no BLT, resting tremor, [place] SUBJECTIVE I just fell asleep FUNCTIONAL STATUS Bed Mobility Rolling: Modified Independent Supine To Sit: Supervision Sit to Supine: Supervision Scooting: Contact Guard Assistance Transfers Sit To Stand: Stand By Assistance Stand To Sit: Stand By Assistance Bed to Chair Contact Guard Assistance Bed To Chair Transfer Type: Stepping Bed To Chair Transfer Equipment: Gait Belt, Wheeled Walker Gait Contact Guard Assistance Gait Device: Wheeled Walker General Deviations/Observations : Flexed trunk posture, Cyn[place]ha decreased, Improper distancing from assistive device Gait Distance (feet): 100, 80 Stairs Contact Guard Assistance Stairs Device: Rail (bilateral handrails step to pattern) Number of Stairs: 8 CURRENT HOSPITAL COURSE Patient is an 88 year old male presenting to [facility] s/p elective L2-3-4-5 laminectomy and L4-5 posterior fusion on 07/30 at [facility] with Dr. Rhodes after diagnosis of lumbar spondylosis and stenosis. Uneventful post-op course. Patient now presents below baseline level of function and can benefit from skilled services to facilitate return to home setting. Relevant Past Medical History: Lumbar stenosis and spondylosis HOME LIVING Patient Lives With: Spouse (1 story home with basement) Assistance Available: 24-Hour (spouse is retired, 4 children that live locally) Entry To Home: Stairs, With Rail Number Of Stairs Into Home: 4 (3 steps plus threshold, 1 HR) Number Of Stairs To Bed/Bath: 0 (ranch home) Tub/Shower Type: Tub/shower combo, grab bars, stands to shower, shower chair Laundry: Spouse performs, main floor Equipment Owned: Rollator, Grab Bars- Shower, Shower Chair, Commode- Raised PRIOR FUNCTIONAL LEVEL Within Functional Limits, Required Assistance, History of Falls Assistance Required With: Laundry, Cleaning, Meals Patient reports ind with ambulation without AD. One fall noted on a ship. 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 Performs own med mgmt. Was sleeping a recliner x 2 months. Has hearing aides but does not like them. 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 THERAPY DIAGNOSIS Reduced mobility-other, Muscle Weakness (generalized), Abnormalities of gait and mobility-other, Difficulty walking-musculoskeletal TREATMENT INTERVENTIONS Therapeutic Exercise (89913), Gait Training (57915) Timed Code Treatment (minutes): 41 Skilled Treatment Time (minutes): 41 Exercise Exercise: seated march green T-band x20, hip addcution x10 green T-band, seated hip abduction green T-band x10, LAQ x10 (more content not included)... Normal [facility] THERAPY NT HNO ID: [id number] Author: KERRI DOUGHERTY OTR/Leeroy Service: Occupational Therapy Author Type: Occupational Therapist Type: Therapy (PT/OT/Speech/Resp) Filed: 08/08/2023 09:34 Note Text: Occupational Therapy Assisted Facility Treatment SERVICE DATE: 08/08/2023 SERVICE TIME: 45 to 928 ROOM: [place] [address] Recommended Discharge Disposition: Home OT Recommended Discharge Disposition Comments: Pt is expected to return home with supportive family to provide 24/7 assistance as needed and home health to follow for continued OT Anticipated Discharge Needs: Family Training, Physical Assist at Home, Supervision at Home, Equipment, Home Modifications Recommended Discharge Equipment: Commode-3 in 1, ADL Kit, Hand Held Shower, Long Handled Sponge, Wheeled Walker, To Be Determined OT 6 Clicks Score: 18 Precautions/Activity Restrictions: Fall Risk, Lines/Tubes/Drains, Spine Precaution/Activity Restriction Comments: L-2-3-4-5 laminectomy with L4-5 posterior fusion, no back brace, lopez, no BLT, resting tremor, [place] Isolation Type: None Current Hospital Course: Patient is an 88 year old male presenting to [facility] s/p elective L2-3-4-5 laminectomy and L4-5 posterior fusion on 07/30 at [facility] with Dr. Rhodes after diagnosis of lumbar spondylosis and stenosis. Uneventful post-op course. Patient now presents below baseline level of function and can benefit from skilled services to facilitate return to home setting. Relevant Past Medical History: Lumbar stenosis and spondylosis Response to Therapy Interventions: Good Participation in Activities, Low Activity Tolerance, Needs Frequent Redirection or Reinstruction, Requires Additional Time to Complete Activities Assessment Comments: Pt completing toilieting tasks with increased ability to release from stabilization; pt cont. to have difficulty controlling bowels - very loose (RN aware); pt declining grooming tasks standing at sink this date; would cont. to benefit from AE practice, standing tolerance/balance during ADLS Treatment Interventions: Education, Self Care/Home Management, Energy Conservation Training, Strengthening, Functional Mobility Training, Balance Training Home Environment Patient Lives With: Spouse (1 story home with basement) Assistance Available: 24-Hour (spouse is retired, 4 children that live locally) Entry To Home: Stairs, With Rail Number Of Stairs Into Home: 4 (3 steps plus threshold, 1 HR) Number Of Stairs To Bed/Bath: 0 (ranch home) Tub/Shower Type: Tub/shower combo, grab bars, stands to shower, shower chair Laundry: Spouse performs, main floor Equipment Owned: Rollator, Grab Bars- Shower, Shower Chair, Commode- Raised Prior Functional Level: Within Functional Limits, Required Assistance, History of Falls Assistance Required With: Laundry, Cleaning, Meals Prior Functional Level Comments: Patient reports ind with ambulation without AD. One fall noted on a ship. 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 Performs own med mgmt. Was sleeping a recliner x 2 months. Has hearing aides but does not like them. 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 Highest Level of Education: (not reported) Occupational Factors Life Roles: Spouse/Significant Other, Family Member, Retired Identified Strengths for Life Roles: Good Support System, Involvement in Hobbies/Leisure Activities, Positive Coping Strategies, Effective Communication Skills, Motivation Identified Barriers for Life Roles: Difficulty with ADLs/IADLs, Fear/Anxiety, Fatigue/Endurance, Medical Acuity/Chronic Condition Subjective: pt reporting having a bowel movement CURRENT FUNCTIONAL STATUS: Most recent performance Current Activities of Daily Living Assist Level Additional Information Feeding Independent, Set Up Grooming Set Up (while seated) Bathing Upper Body Set Up Bathing Lower Body Maximal Assistance Dressing Upper Body Modified Independent Dressing Lower Body Maximal Assistance began instruction with use of AE and purpose including sock aid, local sales manager, dressing stick, shoe horn and sponge- pt reports will likely assist; discussed best clothing options for lopez management Toileting Maximal Assistance using commode frame over toilet in bathroom; pt incontinent of bowel requiring assist for clothing management and posterior hygiene; pt begining to release from stabilization to roberta/doff briefs over hips Instrumental Activities of Daily Living Assist Level Additional Information Meal/Beverage Prep T (more content not included)... Normal [facility] CASE MGT EMILY De La Torre 2023 CASE MGT EMILY CUETO HNO ID: [id number] Author: TAMMY COURTNEY LSW Service: Social Work Author Type: Morgue Keeper Type: Care Mgt Initial Assessment Filed: 08/07/2023 10:08 Note Text: Summary: Initial Assessment CARE MANAGEMENT: ASSESSMENT AND DISCHARGE PLAN SERVICE DATE: August 07, 2023 SERVICE TIME: 909 PCP: Hermann Damian MD Primary Contact: Extended Emergency Contact Information Primary Emergency Contact: Serena Martin Relation: Daughter Secondary Emergency Contact: Mnaju Sales Address: [address] [place] [address] Relation: Spouse Admission Status: Inpatient Swing Insurance Provider: [employer] Discharge Planning requested by: Per Department Practice Potential Transition Plans Home OT/PT Advance Directives: Not in EMR Current Living Arrangements and Support Lives with: Spouse/significant other Type of Residence: Private Residence (Apartment or Condo) Does the patient have to climb stairs at home?: Yes;stairs outside the home (3 steps and 1 threshold to get into home) Support: Children, Spouse/significant other How do you manage to accomplish the following: Independent: Ambulation;Bathe/Shower ;Dress;Going to the bathroom;Medication Management Needs Assistance: Meals/Meal Prep;Transportation to appointments/community Current Services/Equipment Current Post-Acute Service(s): DME Current DME Type: Rollator Scooter, Grab bars, Shower seat, Elevated toilet seat Discharge Planning Patient Goal(s): Be able to go home, Better mobility, Be able to drive [place] Explained: [place] of [place] Given: Yes Level of Care Discussed: Home Care (No previous) Discharge Planning Participant(s): Patient Patient/Family Comments: Someone said I have an appt with Dr Damian. I thought that was in September. Caregiver Assessment: Caregiver is ready, willing and able to meet the patient's needs as recommended by the inter-professional team: Other: See Comment (To be determined) Transport at Discharge: TBD Needs Prior to Discharge: Needs Prior to Discharge: To Be Determined;Facility or Agency Choices;Home Care Order Post-Acute Discharge Plan: Home with [facility] Patient came to [facility] from [facility]. He lives with his Manju. He has 4 children who all live within an hour away. Patient denies any concerns about discharge. Plans to return home and is very agreeable to [facility]. Told him if he needs extra help (aides) and has no family available, there are agencies that have aides for hire. Patient states he doesn't think he will need that. Said his children work but are able to assist if needed. Patient expects his to be here soon. SW to speak with her when she arrives. Patient aware of appt with Dr Young on 08/12 at 9 am. Asking about appt with Dr Damian - he thinks he's to see him in September. SW to check. SIGNATURE: ANTHONY Rodriguez PATIENT NAME: Ciro Sales DATE: August 07, 2023 TIME: 9:34 AM CONTACT #: [id number] Normal [facility] CBC panel Auto (Bld)on 08-06 Erythrocyte distribution width (RBC) [Ratio] 13.7 % Normal 11.5-15.0 [facility] Comment on above: Order Comment: Elías thomson Type: BLOOD SPECIMENOrdering Facility: [facility] Address: [address] [place] [address] Performed By: #### 5 8410-2 ####[facility] LABCLIA [id number] [place] [address] [place] Hematocrit (Bld) [Volume fraction] 30.5 % Low 39.0-51.0 [facility] Comment on above: Order Comment: Elías thomson Type: BLOOD SPECIMENOrdering Facility: [facility] Address: [address] [place] [address] Performed By: #### 5 8410-2 ####[facility] LABCLIA [id number] [place] [address] [place] Hemoglobin (Bld) [Mass/Vol] 9.7 g/dL Low 13.0-17.0 [facility] Comment on above: Order Comment: Elías thomson Type: BLOOD SPECIMENOrdering Facility: [facility] Address: [address] [place] [address] Performed By: #### 5 8410-2 ####[facility] LABCLIA [id number] [place] [address] [place] MCH (RBC) [Entitic mass] 29.9 pg Normal 26.0-34.0 [facility] Comment on above: Order Comment: Speci men Type: BLOOD SPECIMENOrdering Facility: [facility] Address: [address] [place] [address] Performed By: #### 5 8410-2 ####[facility] LABCLIA [id number] [place] [address] [place] MCHC (RBC) [Mass/Vol] 31.8 g/dL Normal 30.5-36.0 [facility] Comment on above: Order Comment: Speci men Type: BLOOD SPECIMENOrdering Facility: [facility] Address: [address] [place] [address] Performed By: #### 5 8410-2 ####[facility] LABCL[facility] [id number] [place] [address] [place] MCV (RBC) [Entitic vol] 94.1 fL Normal 80.0-100.0 [facility] Comment on above: Order Comment: Speci men Type: BLOOD SPECIMENOrdering Facility: [facility] Address: [address] [place] [address] Performed By: #### 5 8410-2 ####[facility] LABCLIA [id number] [place] [address] [place] Platelet mean volume (Bld) [Entitic vol] 10.1 fL Normal 9.0-12.7 [facility] Comment on above: Order Comment: Speci men Type: BLOOD SPECIMENOrdering Facility: [facility] Address: [address] [place] [address] Performed By: #### 5 8410-2 ####[facility] LABCLIA [id number] [place] [address] [facility] Platelets (Bld) [#/Vol] 193 10*3/uL Normal 150-400 [facility] Comment on above: Order Comment: Speci men Type: BLOOD SPECIMENOrdering Facility: [facility] Address: [address] [place] [address] Performed By: #### 5 8410-2 ####[facility] LABCLIA [id number] [place] [address] [facility] [place] RBC (Bld) [#/Vol] 3.24 10*6/uL Low 4.20-6.00 [facility] Comment on above: Order Comment: Speci men Type: BLOOD SPECIMENOrdering Facility: [facility] Address: [address] [place] [address] Performed By: #### 5 8410-2 ####[facility] LABCLIA [id number] [facility] [address] [facility] WBC (Bld) [#/Vol] 7.97 10*3/uL Normal 3.70-11.00 [facility] Comment on above: Order Comment: Speci men Type: BLOOD SPECIMENOrdering Facility: [facility] Address: [address] [place] [address] Performed By: #### 5 8410-2 ####[facility] LABCLIA [id number] [place] [address] [facility] CONSULT PROGon 08-07-2023 CONSULT PROG HNO ID: [id number] Author: KAREN BAILEY RPh Service: Pharmacy Author Type: Pharmacist Type: Consult Progress Note Filed: 08/07/2023 19:33 Note Text: PHARMACY PROGRESS NOTE Patient Name: Ciro Sales Admission Date: 08/05/2023 Date of Consult: 08/07/2023 Time of Consult: 7:32 PM In accordance with the pharmacy dose optimization service, the following medication changes/decisions have been made: Medication Current Regimen Dosing Assessment Indication Assessment/Plan Famotidine 20 mg Q12h Modify dosing to 20 mg Q24h gastroesophageal reflux disease (GERD) Order has been modified to standard dosing based on the patient's estimated renal function: CrCl 42.4 mL/min For medications which dose is dependent on renal function, a pharmacist will monitor renal function daily and adjust doses accordingly. Any dose adjustments needed based on changes in indication should be addressed by an LIP. If you have any questions, [place] [phone]. Estimated Creatinine Clearance: 42.4 mL/min (A) (based on SCr of 1.46 mg/dL (H)). Serum creatinine and eGFR results 72 hours 08/07/2023 6:06 AM SCr (mg/dL) 1.46 eGFR (mL/min/1.73m2) 46 Allergies: ALLERGIES Allergen Reactions Hydrocodone Swelling Seasonale [Levonorg* Unknown Last 1 Encounter Wt Readings: Date: Wt: 08/05/2023 100.8 kg (222 lb 3.6 oz) Last 1 Encounter Ht Readings: Date: Ht: 08/05/2023 177.8 cm (5' 10) Karen Bailey [facility] August 07, 2023 7:32 PM Normal [facility] Comprehensive metabolic 2000 panelon 08-07-2023 Albumin [Mass/Vol] 2.9 g/dL Low 3.9-4.9 [facility] Comment on above: Order Comment: Speci men Type: BLOOD SPECIMEN Ordering Facility: [facility] Address: [address] [place] [address] Performed By: #### 5 0190-8 #### [facility] CLIA [id number] [address] #### 67602-0 #### [facility] CLIA [id number] [address] [place] [address] ALP [Catalytic activity/Vol] 61 U/L Normal 38-113 [facility] Comment on above: Order Comment: Speci men Type: BLOOD SPECIMEN Ordering Facility: [facility] Address: [address] [place] [address] Performed By: #### 5 0190-8 #### [facility] CLIA [id number] [address] #### 64055-2 #### [facility] CLIA [id number] [address] [place] [address] ALT With P-5'-P [Catalytic activity/Vol] 26 U/L Normal 10-54 [facility] Comment on above: Order Comment: Speci men Type: BLOOD SPECIMEN Ordering Facility: [facility] Address: [address] [place] [address] Performed By: #### 5 0190-8 #### [facility] CLIA [id number] [address] #### 45880-6 #### [facility] CLIA [id number] [address] [place] Anion gap [Moles/Vol] 9 mmol/L Normal 9-18 [facility] Comment on above: Order Comment: Speci men Type: BLOOD SPECIMEN Ordering Facility: [facility] Address: [address] [place] [address] Performed By: #### 5 0190-8 #### [facility] CLIA [id number] [address] #### 27469-1 #### [facility] CLIA [id number] [address] [place] AST With P-5'-P [Catalytic activity/Vol] 21 U/L Normal 14-40 [facility] Comment on above: Order Comment: Speci men Type: BLOOD SPECIMEN Ordering Facility: [facility] Address: [address] [place] [address] Performed By: #### 5 0190-8 #### [facility] CLIA [id number] [address] [place] #### 73392-3 #### [facility] CLIA [id number] [address] [place] Bilirubin [Mass/Vol] 0.4 mg/dL Normal 0.2-1.3 [facility] Comment on above: Order Comment: Speci men Type: BLOOD SPECIMEN Ordering Facility: [facility] Address: [address] [place] [address] Performed By: #### 5 0190-8 #### [facility] CLIA [id number] [address] #### 46610-9 #### [facility] CLIA [id number] [address] [place] [address] [place] Calcium [Mass/Vol] 8.4 mg/dL Low 8.5-10.2 [facility] Comment on above: Order Comment: Speci men Type: BLOOD SPECIMEN Ordering Facility: [facility] Address: [address] [place] [address] Performed By: #### 5 0190-8 #### [facility] CLIA [id number] [address] #### 06722-2 #### [facility] CLIA [id number] [address] [place] Chloride [Moles/Vol] 106 mmol/L High 97-105 [facility] Comment on above: Order Comment: Speci men Type: BLOOD SPECIMEN Ordering Facility: [facility] Address: [address] [place] [address] Performed By: #### 5 0190-8 #### [facility] CLIA [id number] [address] #### 30831-7 #### [facility] CLIA [id number] [address] [place] CO2 [Moles/Vol] 26 mmol/L Normal 22-30 [facility] Comment on above: Order Comment: Speci men Type: BLOOD SPECIMEN Ordering Facility: [facility] Address: [address] [place] [address] Performed By: #### 5 0190-8 #### [facility] CLIA [id number] [address] [place] #### 02515-0 #### [facility] CLIA [id number] [address] [place] [address] [place] Creatinine [Mass/Vol] 1.46 mg/dL High 0.73-1.22 [facility] Comment on above: Order Comment: Elías thomson Type: BLOOD SPECIMEN Ordering Facility: [facility] Address: [address] [place] [address] Performed By: #### 5 0190-8 #### [facility] CLIA [id number] [address] [place] #### 87187-8 #### [facility] CLIA [id number] [address] [place] [address] Creatinine and Glomerular filtration rate.predicted panel (S/P/Bld) 46 mL/min/1.73m??? Low >=60 [facility] Comment on above: Order Comment: Elías thomson Type: BLOOD SPECIMEN Ordering Facility: [facility] Address: [address] [place] [address] Result Comment: Lorrie mated Glomerular Filtration Rate (eGFR) is calculated using the 2020 CKD-EPI creatinine equation. This equation utilizes serum creatinine, sex, and age as parameters. The creatinine assay has traceable calibration to isotope dilution-mass spectrometry. Refer to KDIGO guidelines for clinical interpretation. In patients with unstable renal function, e.g. those with acute kidney injury, the eGFR may not accurately reflect actual GFR. Performed By: #### 5 0190-8 #### [facility] CLIA [id number] [address] [place] [address] #### 18490-9 #### [facility] CLIA [id number] [address] [place] [address] [place] Glucose [Mass/Vol] 115 mg/dL High 74-99 [facility] Comment on above: Order Comment: Elías thomson Type: BLOOD SPECIMEN Ordering Facility: [facility] Address: [address] [place] [address] Result Comment: The [place] Diabetes [employer] (ADA) provides guidance for cutoff values for fasting glucose and random glucose. The ADA defines fasting as no caloric intake for at least 8 hours. Fasting plasma glucose results between 100 to 125 mg/dL indicate increased risk for diabetes (prediabetes). Fasting plasma glucose results greater than or equal to 126 mg/dL meet the criteria for diagnosis of diabetes. In the absence of unequivocal hyperglycemia, results should be confirmed by repeat testing. In a patient with classic symptoms of hyperglycemia or hyperglycemic crisis, random plasma glucose results greater than or equal to 200 mg/dL meet the criteria for diagnosis of diabetes. Reference: Standards of Medical Care in Diabetes 2016, [place] [employer] Association. Diabetes Care. 2016.39(Suppl 1). Performed By: #### 5 0190-8 #### [facility] CLIA [id number] [address] #### 48106-6 #### [facility] CLIA [id number] [address] [place] [address] [place] Potassium [Moles/Vol] 3.8 mmol/L Normal 3.7-5.1 [facility] Comment on above: Order Comment: Speci men Type: BLOOD SPECIMEN Ordering Facility: [facility] Address: [address] [place] [address] Performed By: #### 5 0190-8 #### [facility] CLIA [id number] [address] #### 95627-7 #### [facility] CLIA [id number] [address] [place] [address] [place] Protein [Mass/Vol] 5.5 g/dL Low 6.3-8.0 [facility] Comment on above: Order Comment: Elías thomson Type: BLOOD SPECIMEN Ordering Facility: [facility] Address: [address] [place] [address] Performed By: #### 5 0190-8 #### [facility] CLIA [id number] [address] #### 22224-1 #### [facility] CLIA [id number] [address] [place] [address] [place] [facility] Sodium [Moles/Vol] 141 mmol/L Normal 136-144 [facility] Comment on above: Order Comment: Toniai berto Type: BLOOD SPECIMEN Ordering Facility: [facility] Address: [address] [place] [address] Performed By: #### 5 0190-8 #### [facility] CLIA [id number] [address] #### 06724-3 #### [facility] CLIA [id number] [address] OF [facility] Urea nitrogen [Mass/Vol] 21 mg/dL Normal 9-24 [facility] Comment on above: Order Comment: Speci men Type: BLOOD SPECIMEN Ordering Facility: [facility] Address: [address] [place] [address] Performed By: #### 5 0190-8 #### [facility] CLIA [id number] [address] #### 46032-0 #### [facility] CLIA [id number] [address] [place] Iron and Iron binding capaci ty panel 08-07-2023 Iron [Mass/Vol] 31 ug/dL Low 41-186 [facility] Comment on above: Order Comment: Speci men Type: BLOOD SPECIMEN Ordering Facility: [facility] Address: [address] [place] [address] Performed By: #### 5 0190-8 #### [facility] CLIA [id number] [address] #### 86644-4 #### [facility] CLIA [id number] [address] [place] Iron binding capacity [Mass/Vol] 180 ug/dL Low 232-386 [facility] Comment on above: Order Comment: Speci men Type: BLOOD SPECIMEN Ordering Facility: [facility] Address: [address] [place] [address] Performed By: #### 5 0190-8 #### [facility] CLIA [id number] [address] [place] #### 33857-8 #### [facility] CLIA [id number] [address] [place] [address] [facility] Iron saturation [Mass fraction] 17.2 % Normal 15.0-57.0 [facility] Comment on above: Order Comment: Speci men Type: BLOOD SPECIMEN Ordering Facility: [facility] Address: [address] [place], [place] [address] [address] Performed By: #### 5 0190-8 #### [facility] CLIA [id number] [address] #### 73344-0 #### [facility] CLIA [id number] [address] [place] [address] [facility] [place] NURSING PROGon 08-07-2023 NURSING PROG HNO ID: [id number] Author: SUKHI DELATORRE RN Service: Nursing Author Type: Registered Nurse Type: Nursing Progress Note Filed: 08/07/2023 17:53 Note Text: Discussed lab results (iron, TIBC) with patient and daughter. Discussed new orders to recheck labs on 08/11/23 and hold off starting an iron tablet due to recent back surgery and risk of constipation due to iron tablet. Patient and daughter verbalized understanding. Discussed urology appointment with patient and daughter. Patient with concerns if the urologist is in the [facility] and where the office is. Informed patient the urologist is in the [facility] and the office is in [place]. Daughter with questions could patient go home with lopez if he is discharged home before appointment? Discussed with daughter that he could go home with lopez and the family will get taught how to care for the lopez. Daughter verbalized understanding. Normal [facility] NURSING PROG HNO ID: [id number] Author: SUKHI DELATORRE RN Service: Nursing Author Type: Registered Nurse Type: Nursing Progress Note Filed: 08/07/2023 12:19 Note Text: Patient assisted up to BR with use of gait belt and walker. Pt incontinent of a moderate amount of stool. Josefina care and lopez care given. Gown changed. All treatments and procedures were explained. Patient verbalized understanding. No questions or concerns were voiced at this time. Normal [facility] SOCIAL WORKon 08-07-2023 SOCIAL WORK HNO ID: [id number] Author: TAMMY COURTNEY LSW Service: Social Work Author Type: Morgue Keeper Type: Social Work Filed: 08/08/2023 15:08 Note Text: Summary: Appointments SOCIAL WORK PROGRESS NOTE Name: Ciro Sales Told patient the only appointments listed are with Dr Keshav Young/ Neurosurgeon on 08/12 at 9:[address] Terrazas/Urology on 08/18 at 9:30 am. Signature: ANTHONY Rodriguez Date: August 07, 2023 Time: 10:08 AM Normal [facility] THERAPY NTon 08-07-2023 THERAPY NT HNO ID: [id number] Author: GLENDY DONOVAN PT Service: Physical Therapy Author Type: Regional Account Executive Type: Therapy (PT/OT/Speech/Resp) Filed: 08/07/2023 18:50 Note Text: Attestation signed by Glendy Donovan PT at 08/07/2023 6:50 PM I reviewed and agree with the documentation corresponding to this therapy visit. SIGNATURE: Glendy Donovan PT DATE: August 07, 2023 TIME: 6:50 PM Physical Therapy Assisted Facility Treatment Summary SERVICE DATE: 08/07/2023 SERVICE TIME: 1512 to 1555 ROOM: [place] [address] PT 6 Clicks Score: 20 DISCHARGE RECOMMENDATIONS Home PT Recommended Discharge Disposition Comments: Home PT with 11/11 supervision and assist from spouse and PRN from children as needed followed by outpatient therapy Anticipated Discharge Needs: Family Training, Physical Assist at Home, Supervision at Home, Equipment, Home Modifications Recommended Discharge Equipment: Commode-3 in 1, Hand Held Shower, Wheeled Walker, To Be Determined (B HRs to enter home) GOALS Patient will demonstrate progress with functional mobility to allow safe discharge to home with available support and/or physical assistance. Able to Perform HEP with: Independent Transfer Sit to/from Stand with: Modified Independent Ambulate with: Stand By Assistance Distance: 150+ Device: Wheeled Walker Ambulate Up and Down Steps with: Contact Guard Assistance Number of Steps: 4 Device: Rail ROM: BLE strength to WFL Goal: 10 MWT walking speed to at least 0.75 m/s Rehab Potential: Good Progress Toward Goals: Progressing as expected ASSESSMENT Response to Therapy Interventions: Good Participation in Activities Patient tolerates all seated exercises well, attempted a few standing exercises however patient states that his calf are sore and would like to go back to his room. Plan for Next Visit: Gait Training, Exercise Instruction/Handout PRECAUTIONS Fall Risk, Lines/Tubes/Drains, Spine L-2-3-4-5 laminectomy with L4-5 posterior fusion, no back brace, lopez, no BLT, resting tremor, [place] SUBJECTIVE Patient states he just finished with occupational therapy and is agreeable to physical therapy FUNCTIONAL STATUS Bed Mobility Rolling: Modified Independent Supine To Sit: Supervision Sit to Supine: Supervision Scooting: Contact Guard Assistance Transfers Sit To Stand: Contact Guard Assistance Stand To Sit: Contact Guard Assistance Bed to Chair Contact Guard Assistance Bed To Chair Transfer Type: Stepping Bed To Chair Transfer Equipment: Gait Belt, Wheeled Walker Gait Contact Guard Assistance Gait Device: Wheeled Walker General Deviations/Observations : Flexed trunk posture, Difficulty changing direction/turning, Cynthia decreased, Antalgic gait, Shuffling Gait, Step length decreased Gait Distance (feet): 100, 80 Stairs Contact Guard Assistance Stairs Device: Rail (bilateral handrails step to pattern) Number of Stairs: 8 CURRENT HOSPITAL COURSE Patient is an 88 year old male presenting to [facility] s/p elective L2-3-4-5 laminectomy and L4-5 posterior fusion on 07/30 at [facility] with Dr. Rhodes after diagnosis of lumbar spondylosis and stenosis. Uneventful post-op course. Patient now presents below baseline level of function and can benefit from skilled services to facilitate return to home setting. Relevant Past Medical History: Lumbar stenosis and spondylosis HOME LIVING Patient Lives With: Spouse (1 story home with basement) Assistance Available: 24-Hour (spouse is retired, 4 children that live locally) Entry To Home: Stairs, With Rail Number Of Stairs Into Home: 4 (3 steps plus threshold, 1 HR) Number Of Stairs To Bed/Bath: 0 (ranch home) Tub/Shower Type: Tub/shower combo, grab bars, stands to shower, shower chair Laundry: Spouse performs, main floor Equipment Owned: Rollator, Grab Bars- Shower, Shower Chair, Commode- Raised PRIOR FUNCTIONAL LEVEL Within Functional Limits, Required Assistance, History of Falls Assistance Required With: Laundry, Cleaning, Meals Patient reports ind with ambulation without AD. One fall noted on a ship. 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 Performs own med mgmt. Was sleeping a recliner x 2 months. Has hearing aides but does not like them. 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 THERAPY DIAGNOSIS Reduced mobility-other, Muscle Weakness (generalized), Abnormalities of gait and mobility-other, Difficulty walking-musculoskeletal TREATMENT INTERVENTIONS Therapeutic Exercise (63677), Gait Training (90442), Thera (more content not included)... Normal [facility] THERAPY NT HNO ID: [id number] Author: KERRI DOUGHERTY, OTR/L Service: Occupational Therapy Author Type: Occupational Therapist Type: Therapy (PT/OT/Speech/Resp) Filed: 08/07/2023 15:16 Note Text: Occupational Therapy Assisted Facility Treatment SERVICE DATE: 08/07/2023 SERVICE TIME: 1425 to 1510 ROOM: [place] [address] Recommended Discharge Disposition: Home OT Recommended Discharge Disposition Comments: Pt is expected to return home with supportive family to provide 24/ assistance as needed and home health to follow for continued OT Anticipated Discharge Needs: Family Training, Physical Assist at Home, Supervision at Home, Equipment, Home Modifications Recommended Discharge Equipment: Commode-3 in 1, ADL Kit, Hand Held Shower, Long Handled Sponge, Wheeled Walker, To Be Determined OT 6 Clicks Score: 18 Precautions/Activity Restrictions: Fall Risk, Lines/Tubes/Drains, Spine Precaution/Activity Restriction Comments: L-2-3-4-5 laminectomy with L4-5 posterior fusion, no back brace, lopez, no BLT, resting tremor, [place] Isolation Type: None Current Hospital Course: Patient is an 88 year old male presenting to [facility] s/p elective L2-3-4-5 laminectomy and L4-5 posterior fusion on 07/30 at [facility] with Dr. Rhodes after diagnosis of lumbar spondylosis and stenosis. Uneventful post-op course. Patient now presents below baseline level of function and can benefit from skilled services to facilitate return to home setting. Relevant Past Medical History: Lumbar stenosis and spondylosis Response to Therapy Interventions: Good Participation in Activities, Low Activity Tolerance, Needs Frequent Redirection or Reinstruction, Requires Additional Time to Complete Activities Assessment Comments: Pt is demo'ing good balance and improved transfers; he reports will be there to assist; Treatment Interventions: Education, Self Care/Home Management, Energy Conservation Training, Strengthening, Functional Mobility Training, Balance Training Home Environment Patient Lives With: Spouse (1 story home with basement) Assistance Available: 24-Hour (spouse is retired, 4 children that live locally) Entry To Home: Stairs, With Rail Number Of Stairs Into Home: 4 (3 steps plus threshold, 1 HR) Number Of Stairs To Bed/Bath: 0 (ranch home) Tub/Shower Type: Tub/shower combo, grab bars, stands to shower, shower chair Laundry: Spouse performs, main floor Equipment Owned: Rollator, Grab Bars- Shower, Shower Chair, Commode- Raised Prior Functional Level: Within Functional Limits, Required Assistance, History of Falls Assistance Required With: Laundry, Cleaning, Meals Prior Functional Level Comments: Patient reports ind with ambulation without AD. One fall noted on a ship. 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 Performs own med mgmt. Was sleeping a recliner x 2 months. Has hearing aides but does not like them. 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; worked at [employer] in the [place] Highest Level of Education: (not reported) Occupational Factors Life Roles: Spouse/Significant Other, Family Member, Retired Identified Strengths for Life Roles: Good Support System, Involvement in Hobbies/Leisure Activities, Positive Coping Strategies, Effective Communication Skills, Motivation Identified Barriers for Life Roles: Difficulty with ADLs/IADLs, Fear/Anxiety, Fatigue/Endurance, Medical Acuity/Chronic Condition Subjective: pt asking questions about expected functional level/equipment and general sx; OT answering questions - pt verbalizing understanding CURRENT FUNCTIONAL STATUS: Most recent performance Current Activities of Daily Living Assist Level Additional Information Feeding Independent, Set Up Grooming Set Up (while seated) Bathing Upper Body Set Up Bathing Lower Body Maximal Assistance Dressing Upper Body Set Up Dressing Lower Body Maximal Assistance began instruction with use of AE and purpose including sock aid, local sales manager, dressing stick, shoe horn and sponge- pt reports will likely assist; discussed best clothing options for lopez management Toileting Maximal Assistance using commode frame over toilet in bathroom; pt fearful of using unilateral support on walker for clothing mgt aspects of toileting; total assist for hygiene following BM Instrumental Activities of Daily Living Assist Level Additional Information Meal/Beverage Prep Total Assistance Cleaning Total Assistance Laundry Total Assistance Medication Management with Strategies Functional Mobility Assist Level Additiona (more content not included)... Normal [facility] THERAPY NT HNO ID: [id number] Author: GLENDY DONOVAN PT Service: Physical Therapy Author Type: Regional Account Executive Type: Therapy (PT/OT/Speech/Resp) Filed: 08/07/2023 12:22 Note Text: Attestation signed by Glendy Donovan PT at 08/07/2023 12:22 PM I reviewed and agree with the documentation corresponding to this therapy visit. SIGNATURE: Glendy Donovan PT DATE: August 07, 2023 TIME: 12:22 PM Physical Therapy Assisted Facility Treatment Summary SERVICE DATE: 08/07/2023 SERVICE TIME: 937 to 1013 ROOM: [place] [address] PT 6 Clicks Score: 20 DISCHARGE RECOMMENDATIONS Home PT Recommended Discharge Disposition Comments: Home PT with 11/11 supervision and assist from spouse and PRN from children as needed followed by outpatient therapy Anticipated Discharge Needs: Family Training, Physical Assist at Home, Supervision at Home, Equipment, Home Modifications Recommended Discharge Equipment: Commode-3 in 1, Hand Held Shower, Wheeled Walker, To Be Determined (B HRs to enter home) GOALS Patient will demonstrate progress with functional mobility to allow safe discharge to home with available support and/or physical assistance. Able to Perform HEP with: Independent Transfer Sit to/from Stand with: Modified Independent Ambulate with: Stand By Assistance Distance: 150+ Device: Wheeled Walker Ambulate Up and Down Steps with: Contact Guard Assistance Number of Steps: 4 Device: Rail ROM: BLE strength to WFL Goal: 10 MWT walking speed to at least 0.75 m/s Rehab Potential: Good Progress Toward Goals: Progressing as expected ASSESSMENT Response to Therapy Interventions: Good Participation in Activities Patient able to ambulate around unit as well as perform the stairs in this session with good tolerance and only requiring some verbal cues for technique. Plan for Next Visit: Gait Training, Exercise Instruction/Handout PRECAUTIONS Fall Risk, Lines/Tubes/Drains, Spine L-2-3-4-5 laminectomy with L4-5 posterior fusion, no back brace, lopez, no BLT, resting tremor, [place] SUBJECTIVE I don't know why they don't make this hospital bigger FUNCTIONAL STATUS Bed Mobility Rolling: Modified Independent Supine To Sit: Supervision Sit to Supine: Supervision Scooting: Contact Guard Assistance Transfers Sit To Stand: Contact Guard Assistance Stand To Sit: Contact Guard Assistance Bed to Chair Contact Guard Assistance Bed To Chair Transfer Type: Stepping Bed To Chair Transfer Equipment: Gait Belt, Wheeled Walker Gait Contact Guard Assistance Gait Device: Wheeled Walker General Deviations/Observations : Flexed trunk posture, Difficulty changing direction/turning, Cynthia decreased, Antalgic gait, Shuffling Gait, Step length decreased Gait Distance (feet): 100 x 2 Stairs Contact Guard Assistance Stairs Device: Rail (bilateral handrails step to pattern) Number of Stairs: 8 CURRENT HOSPITAL COURSE Patient is an 88 year old male presenting to [facility] s/p elective L2-3-4-5 laminectomy and L4-5 posterior fusion on 07/30 at [facility] with Dr. Rhodes after diagnosis of lumbar spondylosis and stenosis. Uneventful post-op course. Patient now presents below baseline level of function and can benefit from skilled services to facilitate return to home setting. Relevant Past Medical History: Lumbar stenosis and spondylosis HOME LIVING Patient Lives With: Spouse (1 story home with basement) Assistance Available: 24-Hour (spouse is retired, 4 children that live locally) Entry To Home: Stairs, With Rail Number Of Stairs Into Home: 4 (3 steps plus threshold, 1 HR) Number Of Stairs To Bed/Bath: 0 (ranch home) Tub/Shower Type: Tub/shower combo, grab bars, stands to shower, shower chair Laundry: Spouse performs, main floor Equipment Owned: Rollator, Grab Bars- Shower, Shower Chair, Commode- Raised PRIOR FUNCTIONAL LEVEL Within Functional Limits, Required Assistance, History of Falls Assistance Required With: Laundry, Cleaning, Meals Patient reports ind with ambulation without AD. One fall noted on a ship. 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 Performs own med mgmt. Was sleeping a recliner x 2 months. Has hearing aides but does not like them. 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 THERAPY DIAGNOSIS Reduced mobility-other, Muscle Weakness (generalized), Abnormalities of gait and mobility-other, Difficulty walking-musculoskeletal TREATMENT INTERVENTIONS Gait Training (55964), Therapeutic Activity (62829) Timed Code Treatment (minutes): 34 Skilled Treatment T (more content not included)... Normal [facility] HISTORY PHYSICALon HISTORY PHYSICAL HNO ID: [id number] Author: STARLA FRAZIER APRN.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 Service: Hospital Medicine Author Type: Nurse Practitioner Type: H&P Filed: 08/06/2023 21:04 Note Text: Attestation signed by Mak Thomason MD at 08/07/2023 12:26 PM [facility] STAFF PHYSICIAN NOTE OF PERSONAL INVOLVEMENT IN CARE I have reviewed the history and physical examination obtained and documented by the nurse practitioner and discussed the case on as needed basis Principal Problem: Aftercare (POA: Yes) Active Problems: Low back pain (POA: Yes) HTN (hypertension) (POA: Yes) S/P laminectomy (POA: Yes) Urinary retention (POA: Yes) Obesity, Class I, BMI 30-34.9 (POA: Yes) Constipation (POA: Yes) Spinal stenosis (POA: Yes) Renal insufficiency (POA: Yes) Resolved Problems: * No resolved hospital problems. * Mak Thomason MD, FACP [facility] Staff,Dept of Hospital Medicine August 07, 2023 12:26 PM Pager:Click here to page [facility] MEDICINE HISTORY AND PHYSICAL EXAM SERVICE DATE: 08/06/2023 SERVICE TIME: 12:15 PM Primary Care Physician: Hermann Damian MD NIGHT AND WEEKEND COVERAGE: [facility] Medicine JOSEFINA 7a-7p Page [id number] Subjective CHIEF COMPLAINT: rehabilitation following hospitalization HPI: This is a 88 year old male with PMH BCC, elevated PSA, HTN, OAB, spinal stenosis was admitted to [facility] on 07/31/2023 for lumbar laminectomy. Post-op course was complicated by urinary retention. Patient failed voiding trial and was DCd with lopez. Flomax was started and Oxybutynin was stopped. Urology appointment scheduled for 08/18 for voiding trial (remove lopez on 08/17). Post-op recs were vitamin D and Calcium. Do not lift over 10 pounds for 4 weeks. Post-op appointment was scheduled for 08/12 and sutures will be removed at that time. PT/OT recommended SNF, thus patient was transferred to [facility] for further services. Today, patient resting in chair. Denies pain to back. No SOB, CP, N/V. Reports mild constipation and states he has not had BM for several days. Reports chronic dry cough. Lives at home with his and is hopeful to return at [place]. PAST MEDICAL HISTORY Diagnosis Date Basal cell carcinoma nose Elevated prostate specific antigen (PSA) HTN (hypertension) Mixed hyperlipidemia OAB (overactive bladder) Spinal stenosis PAST SURGICAL HISTORY Procedure Laterality Date CATARACT EXTRACTION HX Right HEMORRHOID;BAND LIGAT, SNGL/MUL 2000 HERNIA REPAIR HX 2020 umbilical HERNIA REPAIR HX Right inguinal LAMINECTOMY,LUMBAR 07/31/2023 L2, L3, L4, L5 laminectomy; L4-5 fusion History reviewed. No pertinent family history. Social History Tobacco Use Smoking status: Never Passive exposure: Never Smokeless tobacco: Never Substance Use Topics Alcohol use: Not Currently Drug use: Never PRIOR TO ADMISSION MEDICATIONS: tamsulosin (FLOMAX) 0.4 mg, Take 0.4 mg by mouth once daily., Disp: , Rfl: tiZANidine (ZANAFLEX) 4 mg tablet, Take 4 mg by mouth every 8 hours as needed (muscle spasms)., Disp: , Rfl: loratadine (CLARITIN ORAL), Take by mouth once daily., Disp: , Rfl: naloxone (NARCAN) 0.4 mg/mL soln, 0.4 mg as needed for known or suspected opioid overdose. nasal, Disp: , Rfl: oxyCODONE-acetaminophen (PERCOCET) 5-325 mg tablet, Take 1 tablet by mouth every 8 hours as needed for pain., Disp: , Rfl: valsartan (DIOVAN) 40 mg tablet, Take 1 tablet by mouth every afternoon., Disp: , Rfl: ALLERGIES Allergen Reactions Hydrocodone Swelling Seasonale [Levonorg* Unknown REVIEW OF SYSTEM: Review of Systems Constitutional: Negative for chills and fever. Respiratory: Positive for cough. Negative for sputum production, shortness of breath and wheezing. Cardiovascular: Negative for chest pain, palpitations and leg swelling. Gastrointestinal: Positive for constipation. Negative for abdominal pain, nausea and vomiting. Musculoskeletal: Negative for back pain. Skin: Negative. Neurological: Negative for dizziness and headaches. Objective PHYSICAL EXAM: BP 134/75 Pulse 76 Temp (Src) 98 (Oral) Resp 18 Ht 5' 10 (1.78m) Wt 222 lb 3.6 oz (100.8kg) SpO2 94% BMI 31.89 kg/(m2). O2 Therapy: Room Air Physical Exam Performed: Physical Exam Vitals reviewed. Constitutional: General: He is not in acute distress. Appearance: He is not ill-appearing. HENT: Head: Normocephalic and atraumatic. Mouth/Throat: Mouth: Mucous membranes are moist. Eyes: Conjunctiva/sclera: Conjunctivae normal. Neck: Vascular: No carotid bruit. Cardiovascular: Rate and Rhythm: Normal rate and regular rhythm. Pulses: Normal pulses. Heart sounds: Normal heart sounds. No murmur heard. Pulmonary: Effort: Pulmonary effort is normal. No respiratory distress. Breath sounds: Normal breath sounds. No whee (more content not included)... Normal [facility] NURSING PROGon 08-06-2023 NURSING PROG HNO ID: [id number] Author: SUKHI DELATORRE RN Service: Nursing Author Type: Registered Nurse Type: Nursing Progress Note Filed: 08/06/2023 17:11 Note Text: Patient resting quietly in bed. All treatments and procedures were explained. Patient verbalized understanding. Patient resting a chair to sit in. Informed patient that therapy will look for a chair for him to sit in. Informed patient that therapy will do his PT eval this morning. Patient verbalized understanding. No other questions or concerns were voiced at this time. [facility] NUTRITIONon 08-06-2023 NUTRITION HNO ID: [id number] Author: ALEJANDRO SMITH RD Service: Nutrition Therapy Author Type: Registered Dietitian Type: Nutrition Filed: 08/06/2023 10:58 Note Text: INITIAL ASSESSMENT SERVICE DATE: 08/06/2023 SERVICE TIME: 10:36 AM Nutrition Assessment: Recommended Malnutrition Diagnosis: No Malnutrition Identified Nutrition Diagnosis: Calorie Calculation Method: 25-30 kcals/kg Estimated protein needs (grams): 76-91 Grams protein determined by: 1.0 - 1.2 g/kg, [place] body weight Care Plan: Continue current diet Monitor and Evaluation: Meet greater than 75% of estimated needs, Monitor fluid/electrolyte balance, Monitor labs, I/Os, vital signs, weight Discharge Recommendations: Diet Diet: regular HPI: 88 y/o male w/ PMHx below here for Aftercare [Z51.89] r/t Spinal Stenosis s/p Sx No past medical history on file. Intake History: Nutrition Intake Prior to Admission: Greater than 75% estimated energy needs greater than or equal to 3 months Current Nutrition Intake: Greater than 75% estimated energy needs (x 2 meals) Diet Orders (From admission, onward) Start Ordered 08/05/23 1545 DIET REGULAR START NOW 08/05/23 1537 Anthropometrics: Height: 177.8 cm (5' 10) Weight: 100.8 kg (222 lb 3.6 oz) Dosing Weight: 75.3 kg (166 lb) Usual Weight: 100.7 kg (222 lb) 08/04 Usual Weight Obtained From: Chart Review Body mass index is 31.89 kg/m?. Weight Change: Stable weight(s) Physical Exam: Subcutaneous fat loss: No fat loss Muscle loss: No muscle loss Potential micronutrient deficiency: No deficiency identified, Skin (Sx site lumbar. sacral pressure per chart) Edema/Ascites: No edema GI Symptoms: None Functional Status: No Change Potential Signs of Inflammation: Acute post-operative MNT Billing: $ Initial Assessment: 1-15 minutes SIGNATURE: Alejandro Smith RD PATIENT NAME: Ciro Sales DATE: August 06, 2023 TIME: 10:37 AM [facility] SOCIAL WORKon 08-06-2023 SOCIAL WORK HNO ID: [id number] Author: TAMMY COURTNEY LSW Service: Social Work Author Type: Morgue Keeper Type: Social Work Filed: 08/06/2023 17:18 Note Text: Summary: Team Rounds MULTIDISCIPLINARY ROUNDS SERVICE DATE: 08/06/2023 ADMISSION DATE: 08/05/2023 SERVICE TIME: 12:30 PM ANTICIPATED D/C DATE: TBD Problem List: ACTIVE PROBLEM LIST Aftercare Low Back Pain Htn (Hypertension) S/P Laminectomy Urinary Retention Obesity, Class I, Bmi 30-34.9 Attendees Present at Rounds: CM, 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, NM, OT, PT, SW Needs Discussed on Rounds: Discharge Needs Mobility Psycho/Social Plan of Care Anticipated Discharge Disposition: Home with Home Health Last Vitals: BP 134/75 Pulse 76 Temp (Src) 98 (Oral) Resp 18 Ht 5' 10 (1.78m) Wt 222 lb 3.6 oz (100.8kg) SpO2 94% BMI 31.89 kg/(m2). O2 Therapy: Room Air SW: Lives with Manju. 08/[address] Gaona - suture removal. Need to assess. PT: Hard of hearing. Walked to radiology and back. Very stiff. Did not know his precautions. OT: To eval today. Nursing: Discharge Planning Intervention(s) Plan: Assess Patient/Family Individual Needs Cultural Spirituality and Values;Coordinate Discharge Planning;Encourage Patient/Family to Express Fears and Concerns to Help Identify Feeling Related to Identified Problems;Recommending Equipment for Discharge;Review Current Medication and Medication History and Administer Medications as Ordered Discharge Planning Goals/Outcomes: Exhibits Increased Interest and Assume Responsibility for Patient's Own/Family Learning by Beginning to Look for Information and Ask Questions;Patient Will be Discharged to an Appropriate Safe Level of Care;Patient/Family Aware of Appropriate Arrangements as Evidenced by Verbalizing Services Arranged Discharge Planning Goal Target Achievement Date: 08/12/23Risk for Infection Intervention(s) Plan: Assess and Administer Medications;Assess Vital Signs;Assess Signs/Symptom of Infection;Dressing Changes per Protocol;Ensure Appropriate Infection Control Standards (Isolation), Sterile, Aseptic Technique;Maintain Hand Hygiene;Monitor Labs and Cultures;Review Current Medication and Medication History and Administer Medications as Ordered Risk for Infection Goals/Outcomes: Absence of bleeding, redness, or unusual swelling;Exhibits Increased Interest and Assume Responsibility for Patient's Own/Family Learning by Beginning to Look for Information and Ask Questions;Patient Without Signs/Symptoms of Infections Risk For Infection Goal Target Achievement Date: 08/12/23 Pain Intervention(s) Plan: Pain Assessment, Management, Reassessment Per Scoring Tool;Provide Quiet and Restful Environment;Review Current Medication and Medication History and Administer Medications as Ordered;Utilize Pain Modalities Pain Goals/Outcomes: Decrease in Pain Level per Scoring Tool;Exhibits Increased Interest and Assume Responsibility for Patient's Own/Family Learning by Beginning to Look for Information and Ask Questions;Patient Verbalizes Acceptable Level of Comfort and is Able to Carry Out Activities of Daily Living Pain Goal Target Achievement Date: 08/12/23 Safety Intervention(s) Plan: Assess Patient for Signs of Increasing Anxiety or Agitation;Ensure Safe Positioning;Fall Risk Assessment and Prevention;Maintain a Safe Environment;Review Current Medication and Medication History and Administer Medications as Ordered Safety Goals/Outcomes: Exhibits Increased Interest and Assume Responsibility for Patient's Own/Family Learning by Beginning to Look for Information and Ask Questions;Maintain Patient Safety Safety Goal Target Achievement Date: 08/12/23 DOCUMENTED BY: ANTHONY Rodriguez PATIENT NAME: Ciro Sales DATE: August 06, 2023 TIME: 11:00 AM CSN: [id number] [facility] THERAPY NTon 08-06-2023 THERAPY NT HNO ID: [id number] Author: CHIQUIS MTZ OTR/L Service: Occupational Therapy Author Type: Occupational Therapist Type: Therapy (PT/OT/Speech/Resp) Filed: 08/06/2023 16:01 Note Text: Summary: OT Evaluation Occupational Therapy Assisted Facility Evaluation Summary SERVICE DATE: 08/06/2023 SERVICE TIME: 1300 to 1338 ROOM: [place] [address] OT 6 Clicks Score: 18 DISCHARGE RECOMMENDATIONS Home OT Recommended Discharge Disposition Comments: Pt is expected to return home with supportive family to provide 24/ assistance as needed and home health to follow for continued OT Anticipated Discharge Needs: Family Training, Physical Assist at Home, Supervision at Home, Equipment, Home Modifications Recommended Discharge Equipment: Commode-3 in 1, ADL Kit, Hand Held Shower, Long Handled Sponge, Wheeled Walker, To Be Determined GOALS Patient will demonstrate progress with self-care, cognitive and/or coping needs identified to allow safe discharge to home with available support and/or physical assistance. Lower Body Bathing with: Stand By Assistance Lower Body Dressing with: Stand By Assistance Toilet Hygiene with: Minimal Assistance Chair Transfer with: Stand By Assistance Toilet Transfer with: Stand By Assistance Tub Transfer with: Minimal Assistance Tolerate (minutes of functional activity): 50 Functional Activity with: Stand By Assistance Progress Toward Goals: Progressing as expected Rehab Potential: Good ASSESSMENT Response to Therapy Interventions: Good Participation in Activities, Low Activity Tolerance, Needs Frequent Redirection or Reinstruction, Requires Additional Time to Complete Activities This 88 year old patient presents with deficits in ADL skills, functional mobility skills, standing balance, and overall activity tolerance s/p recent hospitalization for spinal laminectomy and fusion. Pt now has spinal precautions in place, but no brace was issues for pt's use. Pt has lopez catheter in place as well. Pt is functioning below his PLOF and would benefit from skilled OT to address ADL training with adaptive equipment, functional mobility training including bed mobility, and transfers re: ADL to toilet, tub, and chair; standing balance training, and graded activity to improve overall strength and functional endurance. Pt plans to return home with spouse and family to assist as needed with home health services to follow upon discharge. See below for specifics. Plan for Next Visit: Bed Mobility, Chair/Commode Transfer Training, Dressing Training, Energy Conservation, Grooming Training, Sit to Stand Transfers, Standing Balance, Standing Tolerance, Toileting Instruction PRECAUTIONS Fall Risk, Lines/Tubes/Drains, Spine L-2-3-4-5 laminectomy with L4-5 posterior fusion, no back brace, lopez, no BLT, resting tremor, [place] SUBJECTIVE Pt stated his goal is to get moving better and to be able to take care of himself so he is not a burden to his . FUNCTIONAL STATUS Activities of Daily Living Assist Level Additional Information Feeding Independent, Set Up Grooming Set Up (while seated) Bathing Upper Body Set Up Bathing Lower Body Maximal Assistance Dressing Upper Body Set Up Dressing Lower Body Maximal Assistance Toileting Maximal Assistance, Additional Information using commode frame over toilet in bathroom; pt fearful of using unilateral support on walker for clothing mgt aspects of toileting; total assist for hygiene following BM due to pt's fear of LOB Instrumental Activities of Daily Living Assist Level Additional Information Meal/Beverage Prep Total Assistance Cleaning Total Assistance Laundry Total Assistance Medication Management with Strategies Mobility Assist Level Additional Information Bed Mobility Supine To Sit: Contact Guard Assistance, Additional Information using log roll technique for spinal precautions; bed flat, heavy use of rail Sit to Stand Contact Guard Assistance, Additional Information cues for hand placement Stand to Sit Contact Guard Assistance, Additional Information cues for hand placement Bed to Chair Contact Guard Assistance, Additional Information Bed To Chair Transfer Type: Stepping Bed To Chair Transfer Equipment: Wheeled Walker, Gait Belt Pt required CGA for all transfers Toilet/Commode Contact Guard Assistance, Additional Information using commode frame over toilet in bathroom Shower Functional Mobility Contact Guard Assistance Functional Mobility Device: Wheeled Walker CURRENT HOSPITAL COURSE Patient is an 88 year old male presenting to [facility] s/p elective L2-3-4-5 laminectomy and L4-5 posterior fusion on 07/30 at [facility] with Dr. Rhodes after diagnosis of lumbar spondylosis and stenosis. Uneventful post-op cours (more content not included)... Normal [facility] THERAPY NT HNO ID: [id number] Author: YULIYA CAMERON PT Service: Physical Therapy Author Type: Physical Therapist Type: Therapy (PT/OT/Speech/Resp) Filed: 08/06/2023 12:30 Note Text: Summary: PT evaluation note Physical Therapy Assisted Facility Evaluation Summary SERVICE DATE: 08/06/2023 SERVICE TIME: 0930 to 1020 ROOM: [place] [address] PT 6 Clicks Score: 18 DISCHARGE RECOMMENDATIONS Home PT Recommended Discharge Disposition Comments: Home PT with 11/11 supervision and assist from spouse and PRN from children as needed followed by outpatient therapy Anticipated Discharge Needs: Family Training, Physical Assist at Home, Supervision at Home, Equipment, Home Modifications Recommended Discharge Equipment: Commode-3 in 1, Hand Held Shower, Wheeled Walker, To Be Determined (B HRs to enter home) GOALS Patient will demonstrate progress with functional mobility to allow safe discharge to home with available support and/or physical assistance. Able to Perform HEP with: Independent Transfer Sit to/from Stand with: Modified Independent Ambulate with: Stand By Assistance Distance: 150+ Device: Wheeled Walker Ambulate Up and Down Steps with: Contact Guard Assistance Number of Steps: 4 Device: Rail ROM: BLE strength to WFL Goal: 10 MWT walking speed to at least 0.75 m/s Rehab Potential: Good Progress Toward Goals: Progressing as expected ASSESSMENT Response to Therapy Interventions: Good Participation in Activities Patient is an 88 year old male presenting to [facility] s/p elective laminectomy and fusion with continued back precautions which were reviewed with patient and spouse, and discussion regarding protection of spine during mobility. Patient extremely motivated to d/c home with spouse to provide / supervision and assist and 4 children all local to assist. Plan for Next Visit: Gait Training, Exercise Instruction/Handout PRECAUTIONS Fall Risk, Lines/Tubes/Drains L-2-3-4-5 laminectomy with L4-5 posterior fusion, no back brace, lopez, no BLT, resting tremor, [place] SUBJECTIVE I was having hip pain, but it turns out it was a pinched nerve in my back. I had steroid shots, but it felt like I was getting electrocuted. So I gave up with those. And I had found a neurosurgeon and had back surgery. FUNCTIONAL STATUS Bed Mobility Rolling: Modified Independent Supine To Sit: Supervision Sit to Supine: Supervision Scooting: Contact Guard Assistance Transfers Sit To Stand: Contact Guard Assistance (from 18 bedheight) Stand To Sit: Contact Guard Assistance Bed to Chair Contact Guard Assistance Bed To Chair Transfer Type: Stepping Bed To Chair Transfer Equipment: Gait Belt, Wheeled Walker Gait Contact Guard Assistance Gait Device: Wheeled Walker General Deviations/Observations : Flexed trunk posture, Difficulty changing direction/turning, Cynthia decreased, Antalgic gait, Shuffling Gait, Step length decreased Gait Distance (feet): 50' x 2 Stairs (DNT this date) CURRENT HOSPITAL COURSE Patient is an 88 year old male presenting to [facility] s/p elective L2-3-4-5 laminectomy and L4-5 posterior fusion on 07/30 at [facility] with Dr. Rhodes after diagnosis of lumbar spondylosis and stenosis. Uneventful post-op course. Patient now presents below baseline level of function and can benefit from skilled services to facilitate return to home setting. Relevant Past Medical History: Lumbar stenosis and spondylosis HOME LIVING Patient Lives With: Spouse (1 story home with basement) Assistance Available: 24-Hour (spouse is retired, 4 children that live locally) Entry To Home: Stairs, With Rail Number Of Stairs Into Home: 4 (3 steps plus threshold, 1 HR) Number Of Stairs To Bed/Bath: 0 (ranch home) Tub/Shower Type: Tub/shower combo, grab bars, stands to shower, shower chair Laundry: Spouse performs, main floor Equipment Owned: Rollator, Grab Bars- Shower, Shower Chair (sleeps in lazy boy recliner) PRIOR FUNCTIONAL LEVEL Within Functional Limits, Required Assistance, History of Falls Assistance Required With: Laundry, Cleaning, Meals Patient reports ind with ambulation without AD. One fall noted on a ship. Patient reporting ind with ADLs, showering, spouse performs cooking, cleaning, and laundry. Performs own med mgmt. Was sleeping a recliner x 2 months. Has hearing aides but does not like them. 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 THERAPY DIAGNOSIS Reduced mobility-other, Muscle Weakness (generalized), Abnormalities of gait and mobility-other, Difficulty walking-musculoskeletal TREATMENT INTERVENTIONS Evaluation, Gait Training (87839) Timed Code Treatment (minutes): 15 Skilled Treatment Time (minutes): 15 EXERCISE Exercises Exercise: Enc (more content not included)... Normal [facility] CBC panel Auto (Bld)on 08-04 Erythrocyte distribution width (RBC) [Ratio] 13.8 % 11.5 - 15.0 % [facility] Hematocrit (Bld) [Volume fraction] 32.7 % Low 40.0 - 52.0 % [facility] Hemoglobin (Bld) [Mass/Vol] 10.6 g/dL Low 13.0 - 18.0 g/dL [facility] Interpretation and review of laboratory results Abnormal [facility] MCH (RBC) [Entitic mass] 29.9 pg 26. 0 - 34.0 pg [facility] MCHC (RBC) [Mass/Vol] 32.4 % 30.5 - 36.0 % [facility] MCV (RBC) [Entitic vol] 92.1 fL 77.0 - 99.0 fL [facility] Platelet mean volume (Bld) [Entitic vol] 10.3 fL 9.0 - 12.7 fL [facility] Platelets (Bld) [#/Vol] 206 10*3/uL 140 - 440 10*3/uL [facility] RBC (Bld) [#/Vol] 3.55 10*6/uL Low 4.40 - 5.9 0 10*6/uL [facility] WBC (Bld) [#/Vol] 9.7 10*3/uL 3.6 - 10.7 10*3/uL [facility] Basic metabolic 1998 panelon 08-04-2023 Anion gap [Moles/Vol] 6 mmol/L 3 - 13 mmol/L [facility] Calcium [Mass/Vol] 7.8 mg/dL Low 8.4 - 10. 4 mg/dL [facility] Chloride [Moles/Vol] 106 mmol/L 98 - 10 7 mmol/L [facility] CO2 [Moles/Vol] 24 mmol/L 22 - 30 mmol/L [facility] Creatinine [Mass/Vol] 1.63 mg/dL High 0.66 - 1.25 mg/dL [facility] GFR/1.73 sq M.predicted MDRD (S/P/Bld) [Vol rate/Area] 40.5 mL/min/{1.73_m2} Low - PINF [facility] Comment on above: Calculation based on the Chronic Kidney Disease Epidemiology Collaboration (CKD-EPI) equation refit without adjustment for race Glucose [Mass/Vol] 127 mg/dL High 70 - 100 mg/dL [facility] Interpretation and review of laboratory results Abnormal [facility] Potassium [Moles/Vol] 4.0 mmol/L 3.5 - 5.1 mmol/L [facility] Sodium [Moles/Vol] 136 mmol/L 135 - 145 mmol/L [facility] Urea nitrogen [Mass/Vol] 38 mg/dL High 9 - 20 mg/dL [facility] CBC panel Auto (Bld)on 08-03 Erythrocyte distribution width (RBC) [Ratio] 14.1 % 11.5 - 15.0 % [facility] Hematocrit (Bld) [Volume fraction] 31.1 % Low 40.0 - 52.0 % [facility] Hemoglobin (Bld) [Mass/Vol] 9.9 g/dL Low 13.0 - 18.0 g/dL [facility] Interpretation and review of laboratory results Abnormal [facility] MCH (RBC) [Entitic mass] 29.3 pg 26. 0 - 34.0 pg [facility] MCHC (RBC) [Mass/Vol] 31.8 % 30.5 - 36.0 % [facility] MCV (RBC) [Entitic vol] 92.0 fL 77.0 - 99.0 fL [facility] Platelet mean volume (Bld) [Entitic vol] 10.4 fL 9.0 - 12.7 fL [facility] Platelets (Bld) [#/Vol] 168 10*3/uL 140 - 440 10*3/uL [facility] RBC (Bld) [#/Vol] 3.38 10*6/uL Low 4.40 - 5.9 0 10*6/uL [facility] WBC (Bld) [#/Vol] 9.1 10*3/uL 3.6 - 10.7 10*3/uL [facility] Basic metabolic 1998 panelon 08-03-2023 Anion gap [Moles/Vol] 4 mmol/L 3 - 13 mmol/L [facility] Calcium [Mass/Vol] 7.8 mg/dL Low 8.4 - 10. 4 mg/dL [facility] Chloride [Moles/Vol] 106 mmol/L 98 - 10 7 mmol/L [facility] CO2 [Moles/Vol] 24 mmol/L 22 - 30 mmol/L [facility] Creatinine [Mass/Vol] 1.96 mg/dL High 0.66 - 1.25 mg/dL [facility] GFR/1.73 sq M.predicted MDRD (S/P/Bld) [Vol rate/Area] 32.5 mL/min/{1.73_m2} Low - PINF [facility] Comment on above: Calculation based on the Chronic Kidney Disease Epidemiology Collaboration (CKD-EPI) equation refit without adjustment for race Glucose [Mass/Vol] 145 mg/dL High 70 - 100 mg/dL [facility] Interpretation and review of laboratory results Abnormal [facility] Potassium [Moles/Vol] 4.1 mmol/L 3.5 - 5.1 mmol/L [facility] Sodium [Moles/Vol] 134 mmol/L Low 135 - 145 mmol/L [facility] Urea nitrogen [Mass/Vol] 41 mg/dL High 9 - 20 mg/dL [facility] CBC panel Auto (Bld)Ordered By: Nataliya Landry on 08-03-2023 Erythrocyte distribution width (RBC) [Ratio] 14.2 % 11.5 - 15.0 % [facility] Hematocrit (Bld) [Volume fraction] 30.8 % Low 40.0 - 52.0 % [facility] Hemoglobin (Bld) [Mass/Vol] 9.7 g/dL Low 13.0 - 18.0 g/dL [facility] Interpretation and review of laboratory results Abnormal [facility] MCH (RBC) [Entitic mass] 29.4 pg 26. 0 - 34.0 pg [facility] MCHC (RBC) [Mass/Vol] 31.5 % 30.5 - 36.0 % [facility] MCV (RBC) [Entitic vol] 93.3 fL 77.0 - 99.0 fL [facility] Platelet mean volume (Bld) [Entitic vol] 10.5 fL 9.0 - 12.7 fL [facility] Platelets (Bld) [#/Vol] 162 10*3/uL 140 - 440 10*3/uL [facility] RBC (Bld) [#/Vol] 3.30 10*6/uL Low 4.40 - 5.9 0 10*6/uL [facility] WBC (Bld) [#/Vol] 10.8 10*3/uL High 3.6 - 10.7 10*3/uL [facility] US Kidneyon 08-03-2023 Normal sonographic appearance of the kidneys and bladder. Minimally increased echogenicity of the right renal cortex. This is a nonspecific finding but can be seen in the setting of medical renal disease. Tiny bilateral renal cysts. Report Dictated on Electronically Signed By: Franco Knott MD Electronically Signed Date/Time: 08/03/2023 9:00 AM [facility] [employer] Patient Name: CIRO SALES : 1935 Exam Date/Time: 08/03/2023 08:56 Procedure: US RENAL COMPLETE Ordering Provider: STARKEY JAMSHEED Reason For Exam: ACUTE KIDNEY INJURY Exam type: Ultrasound retroperitoneum. CLINICAL INDICATION: ACUTE KIDNEY INJURY COMPARISON: None Technique: Grayscale sonographic images were obtained of the kidneys and bladder. Color Doppler was utilized. FINDINGS: Right Kidney: Size: 11.0 x 6.2 x 5.4 cm Renal Parenchyma: There is minimally increased echogenicity of the renal cortex. Renal cortical thickness remains within normal limits.A small cyst arises off the superior pole of the right kidney measuring 1.2 x 1.0 x 0.9 cm in size. There is no overlying vascular flow. Hydronephrosis: None Renal Calculi: None Left Kidney: Size: 11.2 x 5.6 x 5.7 cm Renal Parenchyma: Normal echogenicity and cortical thickness. Small cyst arises off the superior pole measuring 1 cm in diameter. There is no overlying vascular flow. Hydronephrosis: None Renal Calculi: None The bladder is decompressed by a Lopez catheter. [facility] Xiao Knott MD - 08/03/2023 Patient Name: CIRO SALES : 1935 Exam Date/Time: 08/03/2023 08:56 Procedure: US RENAL COMPLETE Ordering Provider: STARKEY JAMSHEED Reason For Exam: ACUTE KIDNEY INJURY Exam type: Ultrasound retroperitoneum. CLINICAL INDICATION: ACUTE KIDNEY INJURY COMPARISON: None Technique: Grayscale sonographic images were obtained of the kidneys and bladder. Color Doppler was utilized. FINDINGS: Right Kidney: Size: 11.0 x 6.2 x 5.4 cm Renal Parenchyma: There is minimally increased echogenicity of the renal cortex. Renal cortical thickness remains within normal limits.A small cyst arises off the superior pole of the right kidney measuring 1.2 x 1.0 x 0.9 cm in size. There is no overlying vascular flow. Hydronephrosis: None Renal Calculi: None Left Kidney: Size: 11.2 x 5.6 x 5.7 cm Renal Parenchyma: Normal echogenicity and cortical thickness. Small cyst arises off the superior pole measuring 1 cm in diameter. There is no overlying vascular flow. Hydronephrosis: None Renal Calculi: None The bladder is decompressed by a Lopez catheter. IMPRESSION: Normal sonographic appearance of the kidneys and bladder. Minimally increased echogenicity of the right renal cortex. This is a nonspecific finding but can be seen in the setting of medical renal disease. Tiny bilateral renal cysts. Report Dictated on Electronically Signed By: Franco Knott MD Electronically Signed Date/Time: 08/03/2023 9:00 AM EDT [facility] Radiology Study observation (narrative) [facility] KidneyOrdered By: Xiao meneses on 08-03-2023 [facility] Work Phone: CBC panel Auto (Bld)on 07-31 Erythrocyte distribution width (RBC) [Ratio] 13.3 % 11.5 - 15.0 % [facility] Hematocrit (Bld) [Volume fraction] 38.6 % Low 40.0 - 52.0 % [facility] Hemoglobin (Bld) [Mass/Vol] 12.8 g/dL Low 13.0 - 18.0 g/dL [facility] Interpretation and review of laboratory results Abnormal [facility] MCH (RBC) [Entitic mass] 29.4 pg 26. 0 - 34.0 pg [facility] MCHC (RBC) [Mass/Vol] 33.2 % 30.5 - 36.0 % [facility] MCV (RBC) [Entitic vol] 88.7 fL 77.0 - 99.0 fL [facility] Platelet mean volume (Bld) [Entitic vol] 10.8 fL 9.0 - 12.7 fL [facility] Platelets (Bld) [#/Vol] 219 10*3/uL 140 - 440 10*3/uL [facility] RBC (Bld) [#/Vol] 4.35 10*6/uL Low 4.40 - 5.9 0 10*6/uL [facility] WBC (Bld) [#/Vol] 14.6 10*3/uL High 3.6 - 10.7 10*3/uL [facility] Comprehensive metabolic 1998 panelon 08-01-2023 Albumin [Mass/Vol] 3.5 g/dL 3.5 - 5.0 g/dL [facility] ALP [Catalytic activity/Vol] 64 U/L 38 - 126 U/L [facility] ALT [Catalytic activity/Vol] 20 U/L 0 - 49 U/L [facility] Anion gap [Moles/Vol] 6 mmol/L 3 - 13 mmol/L [facility] AST [Catalytic activity/Vol] 30 U/L 15 - 46 U/L [facility] Bilirubin [Mass/Vol] 0.7 mg/dL 0.2 - 1 .3 mg/dL [facility] Calcium [Mass/Vol] 8.6 mg/dL 8.4 - 10. 4 mg/dL [facility] Chloride [Moles/Vol] 103 mmol/L 98 - 10 7 mmol/L [facility] CO2 [Moles/Vol] 26 mmol/L 22 - 30 mmol/L [facility] Creatinine [Mass/Vol] 1.39 mg/dL High 0.66 - 1.25 mg/dL [facility] GFR/1.73 sq M.predicted MDRD (S/P/Bld) [Vol rate/Area] 49.1 mL/min/{1.73_m2} Low - PINF [facility] Comment on above: Calculation based on the Chronic Kidney Disease Epidemiology Collaboration (CKD-EPI) equation refit without adjustment for race Glucose [Mass/Vol] 141 mg/dL High 70 - 100 mg/dL [facility] Interpretation and review of laboratory results Abnormal [facility] Potassium [Moles/Vol] 4.9 mmol/L 3.5 - 5.1 mmol/L [facility] Protein [Mass/Vol] 6.3 g/dL 6.3 - 8.2 g/dL [facility] Sodium [Moles/Vol] 136 mmol/L 135 - 145 mmol/L [facility] Urea nitrogen [Mass/Vol] 26 mg/dL High 9 - 20 mg/dL [facility] Laboratory - Coagulationon 0 08-01-2023 PT Coag (Bld) [Time] 10.8 s 9.0 - 1 2.0 s [facility] PT Coag (Bld) [Time]on 07-31 INR Coag (PPP) [Relative time] 1.0 {INR} 0.9 - 1.1 [facility] Comment on above: Recommended Anticoag ulant Therapy: SEE BELOW ----- INR of 2.0 - 3.0 : - Prophylaxis of Venous Thrombosis (high-risk surgery) - Treatment of Venous Thrombosis - Treatment of Pulmonary Embolism (Includes tissue heart valves, Acute Myocardial Infarction to prevent systemic embolism, Valvular Heart Disease, and Atrial Fibrillation) ----- INR of 2.5 - 3.5 : - Mechanical Prosthetic Valves (high risk) - If oral anticoagulant therapy is used to prevent Myocardial Infarction Interpretation and review of laboratory results Normal [facility] No Panel Informationon 07-30 There is no interpretation needed for this exam. IMAGING There is no interpretation needed for this exam. IMAGING Comprehensive metabolic 1998 panelon 04-11-2023 Albumin [Mass/Vol] 4.2 g/dL 3.6 - 5.1 g/dL [facility] Albumin/Globulin [Mass ratio] 1.6 {ratio} [facility] ALP [Catalytic activity/Vol] 73 U/L 35 - 144 U/L [facility] ALT [Catalytic activity/Vol] 12 U/L 9 - 46 U/L [facility] AST [Catalytic activity/Vol] 13 U/L 10 - 35 U/L [facility] Bilirubin [Mass/Vol] 0.7 mg/dL 0.2 - 1 .2 mg/dL [facility] Calcium [Mass/Vol] 9.0 mg/dL 8.6 - 10. 3 mg/dL [facility] Chloride [Moles/Vol] 105 mmol/L 98 - 11 0 mmol/L [facility] CO2 [Moles/Vol] 28 mmol/L 20 - 32 mmol/L [facility] Creatinine [Mass/Vol] 1.52 mg/dL High 0.70 - 1.22 mg/dL [facility] GFR/1.73 sq M.predicted among non-blacks MDRD (S/P/Bld) [Vol rate/Area] 44 mL/min/{1.73_m2} Low > OR = 60 mL/min/1.73 m2 [facility] Globulin (S) [Mass/Vol] 2.6 g/dL [facility] Glucose [Mass/Vol] 103 mg/dL High 65 - 99 mg/dL [facility] Comment on above: Fasting reference interval For someone without known diabetes, a glucose value between 100 and 125 mg/dL is consistent with prediabetes and should be confirmed with a follow-up test. Potassium [Moles/Vol] 4.4 mmol/L 3.5 - 5.3 mmol/L [facility] Protein [Mass/Vol] 6.8 g/dL 6.1 - 8.1 g/dL [facility] Sodium [Moles/Vol] 142 mmol/L 135 - 146 mmol/L [facility] Urea nitrogen [Mass/Vol] 19 mg/dL 7 - 25 mg/dL [facility] Urea nitrogen/Creatinine [Mass ratio] 13 mg/mg [facility] Hemoglobin A1con 04-11-2023 HbA1c (Bld) [Mass fraction] 6.1 % High [facility] Comment on above: For someone without known diabetes, a hemoglobin A1c value between 5.7% and 6.4% is consistent with prediabetes and should be confirmed with a follow-up test. For someone with known diabetes, a value <7% indicates that their diabetes is well controlled. A1c targets should be individualized based on duration of diabetes, age, comorbid conditions, and other considerations. This assay result is consistent with an increased risk of diabetes. Currently, no consensus exists regarding use of hemoglobin A1c for diagnosis of diabetes for children. Lipid 1996 panelon 3 Cholesterol [Mass/Vol] 194 mg/dL [facility] - 200 mg/dL [facility] Cholesterol in HDL [Mass/Vol] 59 mg/dL > OR = 40 [facility] Cholesterol in LDL [Mass/Vol] 116 mg/dL High mg/dL (calc) [facility] Comment on above: Reference range: <10 0 Desirable range <100 mg/dL for primary prevention; <70 mg/dL for patients with CHD or diabetic patients with > or = 2 CHD risk factors. LDL-C is now calculated using the Davis-Virgilio calculation, which is a validated novel method providing better accuracy than the Friedewald equation in the estimation of LDL-C. Davis RODRÍGUEZ et al. TRACI. 2013;310(19): 1527-9278 (http://education.[employer]ABS/faq/KFW475) Cholesterol non HDL [Mass/Vol] 135 mg/dL High [facility] Comment on above: For patients with di abetes plus 1 major ASCVD risk factor, treating to a non-HDL-C goal of <100 mg/dL (LDL-C of <70 mg/dL) is considered a therapeutic option. Cholesterol.total/Choles terol in HDL [Mass ratio] 3.3 {ratio} [facility] Triglyceride [Mass/Vol] 87 mg/dL [facility] - 150 mg/dL [facility] No Panel Informationon 04-11 Interpretation and review of laboratory results Abnormal [facility] PSA Total (Screening)on 03-22 Prostate specific Ag [Mass/Vol] 6.78 ng/mL High < OR = 4.00 [facility] Comment on above: The total PSA value from this assay system is standardized against the WHO standard. The test result will be approximately 20% lower when compared to the equimolar-standardized total PSA (Tata Daniel). Comparison of serial PSA results should be interpreted with this fact in mind. This test was performed using the Siemens chemiluminescent method. Values obtained from different assay methods cannot be used interchangeably. PSA levels, regardless of value, should not be interpreted as absolute evidence of the presence or absence of disease. Comprehensive metabolic 1998 panelon 04-04-2023 Albumin [Mass/Vol] 4.2 g/dL 3.6 - 5.1 g/dL [facility] Albumin/Globulin [Mass ratio] 1.8 {ratio} [facility] ALP [Catalytic activity/Vol] 74 U/L 35 - 144 U/L [facility] ALT [Catalytic activity/Vol] 12 U/L 9 - 46 U/L [facility] AST [Catalytic activity/Vol] 15 U/L 10 - 35 U/L [facility] Bilirubin [Mass/Vol] 0.6 mg/dL 0.2 - 1 .2 mg/dL [facility] Calcium [Mass/Vol] 8.9 mg/dL 8.6 - 10. 3 mg/dL [facility] Chloride [Moles/Vol] 107 mmol/L 98 - 11 0 mmol/L [facility] CO2 [Moles/Vol] 28 mmol/L 20 - 32 mmol/L [facility] Creatinine [Mass/Vol] 1.45 mg/dL High 0.70 - 1.22 mg/dL [facility] GFR/1.73 sq M.predicted among non-blacks MDRD (S/P/Bld) [Vol rate/Area] 47 mL/min/{1.73_m2} Low > OR = 60 mL/min/1.73 m2 [facility] Globulin (S) [Mass/Vol] 2.4 g/dL [facility] Glucose [Mass/Vol] 89 mg/dL 65 - 99 mg/dL [facility] Comment on above: Fasting reference interval Interpretation and review of laboratory results Abnormal [facility] Potassium [Moles/Vol] 4.4 mmol/L 3.5 - 5.3 mmol/L [facility] Protein [Mass/Vol] 6.6 g/dL 6.1 - 8.1 g/dL [facility] Sodium [Moles/Vol] 144 mmol/L 135 - 146 mmol/L [facility] Urea nitrogen [Mass/Vol] 25 mg/dL 7 - 25 mg/dL [facility] Urea nitrogen/Creatinine [Mass ratio] 17 mg/mg [facility] No Panel Informationon 04-03 No evidence of left lower extremity deep venous thrombosis. Report Dictated on Electronically Signed By: Nghia Pinzon MD Electronically Signed Date/Time: 04/03/2023 4:57 PM EST [facility] Patient Name: CIRO SALES : 1935 Exam Date/Time: 04/03/2023 16:58 Procedure: VASC US LOWER EXTREMITY VENOUS DUPLEX LEFT Ordering Provider: CABRERA REBECCA Reason For Exam: DVT Hx ULTRASOUND LEFT LOWER EXTREMITY VEINS: Indication: Pain and swelling. Examination: Ultrasonographic evaluation of the veins of the left lower extremity was performed to evaluate for the clinically suspected deep venous thrombosis. The right common femoral vein was evaluated as well. History of left popliteal thrombus 11/04/2022 Findings: Color flow imaging demonstrates normal flow. Two-dimensional imaging demonstrates no evidence of filling defect or limited compressibility of the common femoral, superficial femoral, popliteal vein and visualized calf veins. Doppler interrogation demonstrates normal phasic flow with respiration with adequate augmentation and normal response to Valsalva maneuver. [facility] Nghia Pinzon MD - 04/03/2023 Patient Name: CIRO SALES : 1935 Exam Date/Time: 04/03/2023 16:58 Procedure: VASC US LOWER EXTREMITY VENOUS DUPLEX LEFT Ordering Provider: CABRERA REBECCA Reason For Exam: DVT Hx ULTRASOUND LEFT LOWER EXTREMITY VEINS: Indication: Pain and swelling. Examination: Ultrasonographic evaluation of the veins of the left lower extremity was performed to evaluate for the clinically suspected deep venous thrombosis. The right common femoral vein was evaluated as well. History of left popliteal thrombus 11/04/2022 Findings: Color flow imaging demonstrates normal flow. Two-dimensional imaging demonstrates no evidence of filling defect or limited compressibility of the common femoral, superficial femoral, popliteal vein and visualized calf veins. Doppler interrogation demonstrates normal phasic flow with respiration with adequate augmentation and normal response to Valsalva maneuver. IMPRESSION: No evidence of left lower extremity deep venous thrombosis. Report Dictated on Electronically Signed By: Nghia Pinzon MD Electronically Signed Date/Time: 04/03/2023 4:57 PM [facility] [employer] No Panel Informationon 11-04 Deep venous thrombos es in the left popliteal, posterior tibial and peroneal veins. CRITICAL TEST RESULT COMMUNICATION: Notification of these findings was made to GRETCHEN CABRERA via [employer] Chat on 11/04/2022 2:04 PM EDT. Report Dictated on Electronically Signed By: Gutierrez Jaimes MD Electronically Signed Date/Time: 11/04/2022 2:04 PM EDT [facility] [employer] Patient Name: CIRO SALES : 1935 Exam Date/Time: 11/04/2022 13:26 Procedure: VASC US LOWER EXTREMITY VENOUS DUPLEX LEFT Ordering Provider: CABRERA REBECCA Reason For Exam: Pain left calf ULTRASOUND LEFT LOWER EXTREMITY VEINS: CLINICAL INDICATION: Pain TECHNIQUE: Ultrasonographic evaluation of the veins of the left lower extremity was performed to evaluate for the clinically suspected deep venous thrombosis. The right common femoral vein was evaluated as well. The study was performed at the bedside with portable technique. COMPARISON: None. FINDINGS: Color flow imaging demonstrates normal flow. Two-dimensional imaging demonstrates no evidence of filling defect or limited compressibility of the common femoral, superficial femoral, gastrocnemius and greater saphenous veins. There are filling defects with lack of compressibility in the popliteal, posterior tibial and peroneal veins. Doppler interrogation demonstrates normal phasic flow with respiration with adequate augmentation and normal response to Valsalva maneuver. [facility] Gutierrez Jaimes MD - 11/04/2022 Patient Name: CIRO SALES : 1935 Exam Date/Time: 11/04/2022 13:26 Procedure: VASC US LOWER EXTREMITY VENOUS DUPLEX LEFT Ordering Provider: CABRERA REBECCA Reason For Exam: Pain left calf ULTRASOUND LEFT LOWER EXTREMITY VEINS: CLINICAL INDICATION: Pain TECHNIQUE: Ultrasonographic evaluation of the veins of the left lower extremity was performed to evaluate for the clinically suspected deep venous thrombosis. The right common femoral vein was evaluated as well. The study was performed at the bedside with portable technique. COMPARISON: None. FINDINGS: Color flow imaging demonstrates normal flow. Two-dimensional imaging demonstrates no evidence of filling defect or limited compressibility of the common femoral, superficial femoral, gastrocnemius and greater saphenous veins. There are filling defects with lack of compressibility in the popliteal, posterior tibial and peroneal veins. Doppler interrogation demonstrates normal phasic flow with respiration with adequate augmentation and normal response to Valsalva maneuver. IMPRESSION: Deep venous thromboses in the left popliteal, posterior tibial and peroneal veins. CRITICAL TEST RESULT COMMUNICATION: Notification of these findings was made to GRETCHEN CABRERA via [employer] Secure Chat on 11/04/2022 2:04 PM EDT. Report Dictated on Electronically Signed By: Gutierrez Jaimes MD Electronically Signed Date/Time: 11/04/2022 2:04 PM EDT [facility] XR Chest 2 Viewson 3 Negative chest. Report Dictated on Electronically Signed By: Lex Kasper Electronically Signed Date/Time: 10/04/2022 3:05 PM EDT [facility] Patient Name: CIRO SALES : 1935 Exam Date/Time: 10/04/2022 12:02 Procedure: XR CHEST 2 VIEWS Ordering Provider: CABRERA REBECCA Reason For Exam: COUGH CHEST, PA & LATERAL: INDICATION: Cough COMPARISON: No previous studies are available for comparison. PA and lateral views of the chest were obtained. The heart is normal in size. The mediastinal silhouette is normal. The lungs are clear. There are no effusions or infiltrates. There is no pleural thickening. Arthritic changes of the spine and shoulders are present. [facility] Lex KasperDO - 10/04/2022 Patient Name: CIRO SALES : 1935 Exam Date/Time: 10/04/2022 12:02 Procedure: XR CHEST 2 VIEWS Ordering Provider: CABRERA REBECCA Reason For Exam: COUGH CHEST, PA & LATERAL: INDICATION: Cough COMPARISON: No previous studies are available for comparison. PA and lateral views of the chest were obtained. The heart is normal in size. The mediastinal silhouette is normal. The lungs are clear. There are no effusions or infiltrates. There is no pleural thickening. Arthritic changes of the spine and shoulders are present. IMPRESSION: Negative chest. Report Dictated on Electronically Signed By: Lex Kasper Electronically Signed Date/Time: 10/04/2022 3:05 PM EDT [facility] Radiology Study observation (narrative) [facility] XR Chest 2 ViewsOrdered By: Lex Kasper on 10-04-2022 [facility] Work Phone: CR Shoulder 2+ Views Lefton 12-17-2021 CR Shoulder 2+ Views Left Patient Name: CIRO SALES Diagnostic Radiology ACCESSION EXAM DATE/TIME PROCEDURE ORDERING PROVIDER [id number] 12/17/2021 10:11 EDT CR Shoulder 2+ Views FRANCO COLLINS Left CPT code 09048 Reason For Exam (CR Shoulder 2+ Views Left) left shoulder pain Report LEFT SHOULDER, 3 VIEWS: INDICATION: Left shoulder pain COMPARISON: No previous studies are available for comparison. Grashey, axillary and Y views of the left shoulder were obtained. Bone density appears normal. No fracture or dislocation is noted. Arthritic changes are present with marginal spurring of the humeral head and glenoid. There are no significant soft tissue abnormalities. The left lung apex is clear. IMPRESSION: Arthritic changes. No acute process. Report Dictated on Final Dictating Physician: DO KASPER ALFRED Signed Date and Time: 12/17/2021 7:16 pm Signed by: DO KASPER ALFRED Transcribed Date and Time: 12/17/2021 7:17 Normal [facility] CR Hip w/ Pelvis 2 or 3 View s Righton 12-14-2021 CR Hip w/ Pelvis 2 or 3 Views Right Patient Name: CIRO SALES Diagnostic Radiology ACCESSION EXAM DATE/TIME PROCEDURE ORDERING PROVIDER [id number] 12/14/2021 11:05 EDT CR Hip w/ Pelvis 2 or 3 FRANCO COLLINS S Views Right n CPT code 51223 Reason For Exam (CR Hip w/ Pelvis 2 or 3 Views Right n) right hip pain Report Indication: Pelvis and right hip pain chronic. Findings and impression: Pelvis and right hip multiple views. Degenerative sclerosis noted in the acetabulum. Some degenerative spurring of the lumbar spine noted. There is no fracture, dislocation, or acute bone process seen. The etiology of the symptoms is not certain. Report Dictated on Final Dictating Physician: MD ROBLEDO JOHN Signed Date and Time: 12/17/2021 1:19 pm Signed by: MD ROBLEDO JOHN Transcribed Date and Time: 12/17/2021 1:20 Normal [facility] Radiation Onc Init Conson Radiation Onc Init Cons [facility] Radiation Oncology RADIATION ONCOLOGY INITIAL CONSULTATION PATIENT: Ciro Sales DATE OF SERVICE: 12/15/2019 [facility] : 1935 AGE: 84 PRIMARY SITE: 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 STAGE: [id number] HISTORY OF PRESENT ILLNESS: Mr. Sales is an 84-year-old male who noticed a spot on the top of the nose around May. Over time it became a little bit more noticeable. He was seen by dermatology and had a shave biopsy performed of the dorsum of the nose. 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 He was seen back by dermatology in October. He had 2 other areas biopsied on the nose. They noted that due to the extent of disease it was felt to be advantageous to undergo radiation therapy instead of extensive surgery. He is here with his and daughter today to discuss the above. He was asking if the pathology had come back from the biopsy of the other 2 lesions. They note that the accounts specialist that was to perform the procedure is no longer with the practice. He denies any pain in the area. No infection. No bleeding. PAST MEDICAL HISTORY: Hypertension. Allergic rhinitis. Right trigger finger. Urinary urge incontinence. Benign head tremor. Umbilical hernia was repaired. Prediabetes. Hemorrhoids. Elevated PSA. Cataracts that have been removed. PAST SURGICAL HISTORY: Umbilical hernia repair 05/28/2019. Hemorrhoid surgery. Colonoscopy. Cataract surgery. Shave biopsy of the dorsum of the nose on 10/12/2019. 2 other areas of the nose biopsied on 11/19/2019. SOCIAL HISTORY: Patient is . He worked at [employer]. 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 Social EtOH use. No history of tobacco use. FAMILY HISTORY: Father skin cancer. Otherwise negative. ALLERGIES: No Known Drug Allergies MEDICATIONS: 1. lisinopril - Tablet Oral Daily 2. Norvasc - Tablet Oral Daily 3. Napoleon 3 - Capsule Oral Daily 4. vitamin E (dl, acetate) - Topical 5. zinc gluconate - Tablet Oral Daily Last Reconciled by Sonja Jiang RN on 12/15/2019 SUMMARY OF SIGNIFICIANT X-RAY/LABORATORY FINDINGS: No radiological findings. Biopsy of the dorsum of the nose on 10/11/2019 showed a nodular basal cell carcinoma. The other 2 biopsies on 11/19/2019 noted actinic keratosis. REVIEW OF SYSTEMS: Pain: 0 - No pain Constitutional: Good appetite. Good energy level. No fever, chills, sweats, or headaches. Vision: Stable. Ears Nose Throat and Mouth:Has hearing loss. No mouth, throat, or swallowing issues. Respiratory: No shortness of breath at rest. No dyspnea on exertion. No cough. No paroxysmal nocturnal dyspnea or orthopnea. Not on oxygen. Cardiovascular: No chest pain. No heart racing. No palpitations. Musculoskeletal: No arthritic symptoms. No swelling. Good range of motion. Skin: No rashes, open areas, or pruritus. Biopsy sites are healing well. Neurological: No numbness, tingling, or weakness. Psychiatric: No anxiety or depression. Hematology/Lymphatic: Blood counts okay. No anemia. No blood transfusion. Allergy/Immunologic: No connective tissue disease, such as rheumatoid arthritis, scleroderma, or lupus. Endocrine: No thyroid or diabetic issues. No history of radiation or chemotherapy. KPS: 100 - Normal; no complaints; no evidence of disease PHYSICAL EXAMINATION: VITALS: Temperature 98 F (12/15/19), Pulse 82 (12/15/19), Respirations 18 (12/15/19), Blood Pressure 154/961 (12/15/19), Height 70 inches (12/15/19), Oxygen Saturation 95% (12/15/19), GENERAL: Awake, alert, oriented x3, mild anxiety, dressed appropriately, appears of stated age. Ambulates without assistance. Speech pattern fluent. Hearing loss noted. HEAD AND NECK: Oral without mass or ulceration. Good tongue movement. No exudate or thrush. Nonicteric sclera. LUNGS: Clear to auscultation. No rales or rhonchi. HEART: Regular rate and rhythm, S1-S2 noted no murmur. NECK: Symmetric. No thyroid nodule. NODES: No neck, supraclavicular, infraclavicular adenopathy. MUSCULOSKELETAL: No swelling. No calf tenderness. No spine or posterior chest wall tenderness. SKIN: Sun exposed skin changes noted. Without excessive bruising. No open areas or rash. Small sites noted on the nose as directed by the photographs. IMPRESSION: Mr. Sales is an 84-year-old gentleman who presents with basal cell carcinoma of the skin of the nose. The other 2 lesions are actinic keratosis. We spoke about the use of radiation therapy to the region. We discussed set up, projected course of therapy as well as possible side effects both acute and long-term. Discussed the pathological findings of the other 2 sites in question on the nose and these are not normally treated with radiation. Patient is interested in discussing surgery now that they know the results of the other 2 lesions. Mr. Sales was given information on radiation therapy. I placed a call to [facility] so they may speak further with Mr. Sales. PLAN: Await patient's final decision. We thank you for the consultation. Janice Anne MD, FACRO Electronically signed by: Janice Anne MD , T: 9:10 PM CC: Hermann Damian MD [facility] [place] Department of Radiation Oncology is an Accredited Facility of the [employer] ([employer]). This document was completed utilizing speech recognition software. Grammatical errors, random word insertions, pronoun errors, and incomplete sentences are an occasional consequence of this system due to software limitations, ambient noise, and hardware issues. Any formal questions or concerns about the content, text or information contained within the body of this dictation should be directly addressed to the provider for clarification. PATIENT:Ciro Sales : 1935 cc: Hermann Damian MD [address] [address] Normal [facility] Basic Metabolic PanelOrdered By: Angel Solis on 05-20-2019 Anion gap [Moles/Vol] 8 mmol/L [facility] Work Phone: Calcium [Mass/Vol] 8.7 mg/dL 8.4 - 10. 4 mg/dL [facility] Work Phone: Chloride [Moles/Vol] 106 mmol/L 98 - 10 7 mmol/L [facility] Work Phone: CO2 [Moles/Vol] 24 mmol/L 22 - 30 mmol/L [facility] Work Phone: Creatinine [Mass/Vol] 1.23 mg/dL 0.52 - 1.25 mg/dL [facility] Work Phone: EGFR IF NonAfrican [place] 56.2 mL/min >60 [facility] Work Phone: Comment on above: Source- MDRD equatio n with creatinine calibration to IDMS(NKDEP) eGFR not recommended for drug dose adjustment GFR/1.73 sq M.predicted among blacks MDRD (S/P/Bld) [Vol rate/Area] mL/min/{1.73_m2} >60 mL/min [facility] Work Phone: Glucose [Mass/Vol] 127 mg/dL High 70 - 100 mg/dL [facility] Work Phone: Interpretation and review of laboratory results Abnormal [facility] Work Phone: Potassium [Moles/Vol] 4.4 mmol/L 3.5 - 5.1 mmol/L [facility] Work Phone: Sodium [Moles/Vol] 138 mmol/L 135 - 145 mmol/L [facility] Work Phone: Urea nitrogen [Mass/Vol] 18 mg/dL 7 - 20 mg/dL [facility] Work Phone: Test Performed by [facility], [address] [place] [id number] [place], [place] [id number] Work Phone: CBCOrdered By: Angel Solis on 05-20-2019 Erythrocyte distribution width (RBC) [Ratio] 13.5 % 11.5 - 14.5 % [facility] Work Phone: Hematocrit (Bld) [Volume fraction] 45.1 % 40 - 52 % [facility] Work Phone: Hemoglobin (Bld) [Mass/Vol] 15.6 g/dL 13 - 18 g/dL [facility] Work Phone: MCH (RBC) [Entitic mass] 31.5 pg 26 - 34 pg [facility] Work Phone: MCHC 34.5 % 32 - 36 % [facility] Work Phone: MCV (RBC) [Entitic vol] 91.3 fL 80 - 98 fL S [facility] Work Phone: Platelet mean volume (Bld) [Entitic vol] 7.9 fL 7.4 - 10.4 fL [employer] Work Phone: Platelets (Bld) [#/Vol] 181 10*3/uL 140 - 440 10*3/uL [facility] Work Phone: RBC (Bld) [#/Vol] 4.94 10*6/uL 4.4 - 5.9 10*6/uL [employer] Work Phone: WBC (Bld) [#/Vol] 7.5 10*3/uL 3.6 - 10.7 10*3/uL [employer] Work Phone: Test Performed by [facility], [address] [place], [place] [address] [employer] Work Phone: Vital Signs Date Time Vital Sign Value Performing Clinician Zahraa chand 10-13-2024 11:19-0400 Diastolic blood pressure 69 mm[Hg] Gretchen Bridenthal 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 Work Phone: [employer] 10-13-2024 11:19-0400 Heart rate 59 /min Gretchen Bridenthal [employer] - 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 Work Phone: [employer] 10-13-2024 11:19-0400 Systolic blood pressure 139 mm[Hg] Gretchen Bridenthal [employer] - 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 Work Phone: [employer] 10-13-2024 10:32-0400 Body mass index (BMI) [Ratio] 30.56 kg/m2 Gretchen Bridenthal [employer] - 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 Work Phone: [employer] 10-13-2024 10:32-0400 Body temperature 99.3 [degF] Gretchen Bridenthal [employer] - 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 Work Phone: [employer] 10-13-2024 10:32-0400 Body weight 96.62 kg Gretchen Bridenthal [employer] - 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 Work Phone: [employer] 10-13-2024 10:32-0400 Respiratory rate 24 /min Gretchen Bridenthal [employer] - 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 Work Phone: [employer] 10-13-2024 10:32-0400 SaO2% (BldA) [Mass fraction] 91 % Gretchen Bridenthal [employer] - 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 Work Phone: [facility] [employer] 09-29-2024 11:10-0400 Diastolic blood pressure 82 mm[Hg] Yashira Rodriguez [employer] - 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 Work Phone: [facility] [employer] 09-29-2024 11:10-0400 Systolic blood pressure 139 mm[Hg] Yashira Rodriguez [employer] - 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 Work Phone: [facility] [employer] 09-29-2024 11:02-0400 Body height 177.8 cm Yashira Rodriguez [employer] - 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 Work Phone: [facility] [employer] 09-29-2024 11:02-0400 Body mass index (BMI) [Ratio] 30.28 kg/m2 Yashira Rodriguez [employer] - 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 Work Phone: [facility] [employer] 09-29-2024 11:02-0400 Body weight 95.71 kg Yashira Rodriguez [employer] - 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 Work Phone: [facility] [employer] 09-29-2024 11:02-0400 Heart rate 72 /min Yashira Rodriguez [employer] - 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 Work Phone: [facility] [employer] 09-29-2024 11:02-0400 SaO2% (BldA) [Mass fraction] 95 % Yashira Rodriguez [employer] - 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 Work Phone: [facility] [employer] 04-12-2024 10:03-0500 Body height 177.8 cm Hermann Damian MD Work Phone: [facility] [employer] 04-12-2024 10:03-0500 Body mass index (BMI) [Ratio] 29.01 kg/m2 Hermann Damian MD Work Phone: [facility] [employer] 04-12-2024 10:03-0500 Body weight 91.72 kg Hermann Damian MD Work Phone: [employer] 04-12-2024 10:03-0500 Diastolic blood pressure 80 mm[Hg] Hermann Damian MD Work Phone: [facility] [employer] 04-12-2024 10:03-0500 Heart rate 94 /min Hermann Damian MD Work Phone: [facility] [employer] 04-12-2024 10:03-0500 SaO2% (BldA) [Mass fraction] 91 % Hermann Damian MD Work Phone: [employer] 04-12-2024 10:03-0500 Systolic blood pressure 135 mm[Hg] Hermann Damian MD Work Phone: [employer] 2024 14:00-0500 Body height 177.8 cm Yashira Michael [employer] - 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 Work Phone: [employer] 2024 14:00-0500 Body mass index (BMI) [Ratio] 29.44 kg/m2 Yashira Michael [employer] - 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 Work Phone: [employer] 2024 14:00-0500 Body temperature 97.9 [degF] Yashira Rodriguez [employer] - 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 Work Phone: [employer] 2024 14:00-0500 Body weight 93.08 kg Yashira Rodriguez [employer] - 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 Work Phone: [employer] 2024 14:00-0500 Diastolic blood pressure 84 mm[Hg] Yashira Rodriguez [employer] - 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 Work Phone: [employer] 2024 14:00-0500 Heart rate 81 /min Yashira Rodriguez [employer] - 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 Work Phone: [employer] 2024 14:00-0500 SaO2% (BldA) [Mass fraction] 94 % Yashira Rodriguez [employer] - 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 Work Phone: [employer] 2024 14:00-0500 Systolic blood pressure 132 mm[Hg] Yashira Rodriguez [employer] - 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 Work Phone: [employer] 02-12-2024 13:11-0400 Body height 177.8 cm Sana Marcos DO Work Phone: [employer] 02-12-2024 13:11-0400 Body mass index (BMI) [Ratio] 29.27 kg/m2 Sana Marcos DO Work Phone: [employer] 02-12-2024 13:11-0400 Body weight 92.53 kg Sana Marcos DO Work Phone: [employer] 02-12-2024 13:11-0400 Diastolic blood pressure 66 mm[Hg] Sana Marcos DO Work Phone: [employer] 02-12-2024 13:11-0400 Heart rate 75 /min Sana Marcos DO Work Phone: [employer] 02-12-2024 13:11-0400 Systolic blood pressure 117 mm[Hg] Sana Marcos DO Work Phone: [employer] 02-01-2024 16:02-0400 Body height 177.8 cm Conrad Knox MD Work Phone: [employer] 02-01-2024 16:02-0400 Body mass index (BMI) [Ratio] 29.27 kg/m2 Conrad Knox MD Work Phone: [employer] 02-01-2024 16:02-0400 Body temperature 97.59 [degF] Conrad Knox MD Work Phone: [employer] 02-01-2024 16:02-0400 Body weight 92.53 kg Conrad Knox MD Work Phone: [employer] 02-01-2024 16:02-0400 Diastolic blood pressure 78 mm[Hg] Conrad Knox MD Work Phone: [employer] 02-01-2024 16:02-0400 Heart rate 96 /min Conrad Knox MD Work Phone: [employer] 02-01-2024 16:02-0400 Respiratory rate 16 /min Conrad Knox MD Work Phone: [employer] 02-01-2024 16:02-0400 SaO2% (BldA) [Mass fraction] 98 % Conrad Knox MD Work Phone: [employer] 02-01-2024 16:02-0400 Systolic blood pressure 144 mm[Hg] Conrad Knox MD Work Phone: [employer] 01-30-2024 23:35-0400 Diastolic blood pressure 75 mm[Hg] Alberto Gombash DO Work Phone: [facility] [employer] 01-30-2024 23:35-0400 Systolic blood pressure 119 mm[Hg] Alberto Gombash DO Work Phone: [facility] [employer] 01-30-2024 22:56-0400 SaO2% (BldA) [Mass fraction] 95 % Alberto Gombash DO Work Phone: [employer] 01-30-2024 22:54-0400 Body height 177.8 cm Alberto Gombash DO Work Phone: [employer] 01-30-2024 22:54-0400 Body mass index (BMI) [Ratio] 29.27 kg/m2 Alberto Gombash DO Work Phone: [facility] [employer] 01-30-2024 22:54-0400 Body temperature 97.59 [degF] Alberto Gombash DO Work Phone: [employer] 01-30-2024 22:54-0400 Body weight 92.53 kg Alberto Gombash DO Work Phone: [employer] 01-30-2024 22:54-0400 Heart rate 87 /min Alberto Gombash DO Work Phone: [employer] 01-30-2024 22:54-0400 Respiratory rate 16 /min Alebrto Gombash DO Work Phone: [employer] 01-29-2024 23:33-0400 Body mass index (BMI) [Ratio] 29.27 kg/m2 King Baeza MD Work Phone: [employer] 01-29-2024 23:33-0400 Body temperature 98.6 [degF] King Baeza MD Work Phone: [employer] 01-29-2024 23:33-0400 Body weight 92.53 kg King Baeza MD Work Phone: [facility] [employer] 01-29-2024 23:33-0400 Diastolic blood pressure 107 mm[Hg] King Baeza MD Work Phone: [facility] [employer] 01-29-2024 23:33-0400 Heart rate 85 /min King Baeza MD Work Phone: [facility] [employer] 01-29-2024 23:33-0400 Respiratory rate 16 /min King Baeza MD Work Phone: [facility] [employer] 01-29-2024 23:33-0400 SaO2% (BldA) [Mass fraction] 93 % King Baeza MD Work Phone: [facility] [employer] 01-29-2024 23:33-0400 Systolic blood pressure 178 mm[Hg] King Baeza MD Work Phone: [facility] [employer] 01-28-2024 18:37-0400 Diastolic blood pressure 65 mm[Hg] Andres Servin MD Work Phone: [facility] [employer] 01-28-2024 18:37-0400 Heart rate 82 /min Andres Servin MD Work Phone: [facility] [employer] 01-28-2024 18:37-0400 Respiratory rate 16 /min Andres Servin MD Work Phone: [facility] [employer] 01-28-2024 18:37-0400 SaO2% (BldA) [Mass fraction] 96 % Andres Servin MD Work Phone: [facility] [employer] 01-28-2024 18:37-0400 Systolic blood pressure 104 mm[Hg] Andres Servin MD Work Phone: [facility] [employer] 01-28-2024 15:47-0400 Body height 177.8 cm Andres Servin MD Work Phone: [facility] [employer] 01-28-2024 15:47-0400 Body mass index (BMI) [Ratio] 28.84 kg/m2 Andres Servin MD Work Phone: [facility] [employer] 01-28-2024 15:47-0400 Body temperature 98.4 [degF] Andres Servin MD Work Phone: [employer] 01-28-2024 15:47-0400 Body weight 91.17 kg Andres Servin MD Work Phone: [employer] 01-06-2024 14:19-0400 Body temperature 97.39 [degF] Sana Priti DO Work Phone: [employer] 01-06-2024 14:19-0400 Diastolic blood pressure 54 mm[Hg] Sana Priti DO Work Phone: [employer] 01-06-2024 14:19-0400 Heart rate 67 /min Sana Priti DO Work Phone: [employer] 01-06-2024 14:19-0400 Respiratory rate 16 /min Sana Priti DO Work Phone: [employer] 01-06-2024 14:19-0400 SaO2% (BldA) [Mass fraction] 95 % Sana Priti DO Work Phone: [employer] 01-06-2024 14:19-0400 Systolic blood pressure 115 mm[Hg] Sana Priti DO Work Phone: [employer] 01-05-2024 07:29-0400 Body height 177.8 cm Sana Priti DO Work Phone: [employer] 01-05-2024 07:29-0400 Body mass index (BMI) [Ratio] 30.13 kg/m2 Sana Priti DO Work Phone: [employer] 01-05-2024 07:29-0400 Body weight 95.25 kg Sana Priti DO Work Phone: [employer] 12-24-2023 10:55-0400 Diastolic blood pressure 72 mm[Hg] Gretchen Torres CNP Work Phone: [employer] 12-24-2023 10:55-0400 Heart rate 81 /min Gretchen Bridenthal [employer] - 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 Work Phone: [employer] 12-24-2023 10:55-0400 Systolic blood pressure 115 mm[Hg] Gretchen Bridenthal [employer] - 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 Work Phone: [employer] 12-24-2023 10:06-0400 Body mass index (BMI) [Ratio] 29.5 kg/m2 Gretchen Bridenthal [employer] - 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 Work Phone: [employer] 12-24-2023 10:06-0400 Body temperature 98.4 [degF] Gretchen Bridenthal [employer] - 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 Work Phone: [employer] 12-24-2023 10:06-0400 Body weight 93.26 kg Gretchen Justiceenthal SCIENCE JOB TITLES - 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 Work Phone: [employer] [employer] 12-24-2023 10:06-0400 Respiratory rate 24 /min Gretchen Justiceenthal [employer] - 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 Work Phone: [employer] 12-24-2023 10:06-0400 SaO2% (BldA) [Mass fraction] 93 % Gretchen Justiceenthal [employer] - 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 Work Phone: [facility] 12-16-2023 10:41-0400 Body height 177.8 cm Sana Priti DO Work Phone: [facility] 12-16-2023 10:41-0400 Body mass index (BMI) [Ratio] 29.41 kg/m2 Sana Priti DO Work Phone: [employer] 12-16-2023 10:41-0400 Body weight 92.99 kg Sana Priti DO Work Phone: [employer] 12-16-2023 10:41-0400 Diastolic blood pressure 78 mm[Hg] Sana Nunns DO Work Phone: [employer] 12-16-2023 10:41-0400 Heart rate 90 /min Sana Marcos DO Work Phone: [facility] 12-16-2023 10:41-0400 Systolic blood pressure 106 mm[Hg] Sana Marcos DO Work Phone: [facility] 11-12-2023 11:02-0400 Diastolic blood pressure 75 mm[Hg] Gretchen Bridenthal [employer] - 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 Work Phone: [facility] 11-12-2023 11:02-0400 Heart rate 82 /min Gretchen Bridenthal [employer] - 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 Work Phone: [employer] 11-12-2023 11:02-0400 Systolic blood pressure 133 mm[Hg] Gretchen Bridenthal [employer] - 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 Work Phone: [facility] 11-12-2023 10:20-0400 Body mass index (BMI) [Ratio] 29.44 kg/m2 Gretchen Bridenthal [employer] - 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 Work Phone: [facility] 11-12-2023 10:20-0400 Body temperature 98.71 [degF] Gretchen Bridenthal [employer] - 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 Work Phone: [facility] 11-12-2023 10:20-0400 Body weight 93.08 kg Gretchen Bridenthal [employer] - 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 Work Phone: [facility] 11-12-2023 10:20-0400 Respiratory rate 16 /min Gretchen Bridenthal [employer] - 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 Work Phone: [employer] 11-12-2023 10:20-0400 SaO2% (BldA) [Mass fraction] 94 % Gretchen Bridenthal [employer] - 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 Work Phone: [facility] 10-15-2023 09:22-0400 Body height 177.8 cm Ta Young MD Work Phone: [facility] 10-15-2023 09:22-0400 Body mass index (BMI) [Ratio] 29.56 kg/m2 Ta Young MD Work Phone: [facility] 10-15-2023 09:22-0400 Body weight 93.44 kg Ta Young MD Work Phone: [facility] 10-15-2023 09:22-0400 Diastolic blood pressure 69 mm[Hg] Ta Young MD Work Phone: [facility] 10-15-2023 09:22-0400 Heart rate 91 /min Ta Young MD Work Phone: [facility] 10-15-2023 09:22-0400 Systolic blood pressure 109 mm[Hg] Ta Young MD Work Phone: [facility] 10-13-2023 09:24-0400 Body mass index (BMI) [Ratio] 29.7 kg/m2 Gretchen Bridenthal [employer] - 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 Work Phone: [facility] 10-13-2023 09:24-0400 Body temperature 98.71 [degF] Gretchen Bridenthal [employer] - 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 Work Phone: [facility] 10-13-2023 09:24-0400 Body weight 93.89 kg Gretchen Bridenthal [employer] - 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 Work Phone: [facility] 10-13-2023 09:24-0400 Diastolic blood pressure 74 mm[Hg] Gretchen Bridenthal [employer] - 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 Work Phone: [facility] 10-13-2023 09:24-0400 Heart rate 94 /min Gretchen Bridenthal [employer] - 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 Work Phone: [facility] 10-13-2023 09:24-0400 Respiratory rate 18 /min Gretchen Bridenthal [employer] - 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 Work Phone: [facility] 10-13-2023 09:24-0400 SaO2% (BldA) [Mass fraction] 92 % Gretchen Bridenthal [employer] - 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 Work Phone: [facility] 10-13-2023 09:24-0400 Systolic blood pressure 131 mm[Hg] Gretchen Cabrera [employer] - 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 Work Phone: [facility] 10-06-2023 15:58-0400 Body temperature 100 [degF] Stephen Schmitz MD Work Phone: [facility] 10-06-2023 15:58-0400 Diastolic blood pressure 69 mm[Hg] Stephen Schmitz MD Work Phone: [facility] 10-06-2023 15:58-0400 Heart rate 75 /min Stephen Schmitz MD Work Phone: [facility] 10-06-2023 15:58-0400 Respiratory rate 16 /min Stephen Schmitz MD Work Phone: [facility] 10-06-2023 15:58-0400 SaO2% (BldA) [Mass fraction] 95 % Stephen Schmitz MD Work Phone: [facility] 10-06-2023 15:58-0400 Systolic blood pressure 118 mm[Hg] Stephen Schmitz MD Work Phone: [facility] 10-05-2023 12:32-0400 Body height 177.8 cm Stephen Schmitz MD Work Phone: [facility] 10-05-2023 12:32-0400 Body mass index (BMI) [Ratio] 29.7 kg/m2 Stephen Schmitz MD Work Phone: [facility] 10-05-2023 12:32-0400 Body weight 93.89 kg Stephen Schmitz MD Work Phone: [facility] 09-29-2023 09:09-0400 Body height 177.8 cm Sana Marcos DO Work Phone: [facility] 09-29-2023 09:09-0400 Body mass index (BMI) [Ratio] 29.84 kg/m2 Sana Marcos DO Work Phone: [facility] 09-29-2023 09:09-0400 Body weight 94.35 kg Sana Marcos DO Work Phone: [facility] 09-29-2023 09:09-0400 Diastolic blood pressure 89 mm[Hg] Sana Nunns DO Work Phone: [facility] 09-29-2023 09:09-0400 Heart rate 90 /min Sana Marcos DO Work Phone: [facility] 09-29-2023 09:09-0400 Systolic blood pressure 158 mm[Hg] Sana Marcos DO Work Phone: [facility] 09-11-2023 11:06-0400 Diastolic blood pressure 67 mm[Hg] Gretchen Bridenthal [employer] - 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 Work Phone: [facility] 09-11-2023 11:06-0400 Heart rate 101 /min Gretchen Bridenthal [employer] - 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 Work Phone: [facility] 09-11-2023 11:06-0400 Systolic blood pressure 104 mm[Hg] Gretchen Bridenthal [employer] - 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 Work Phone: [facility] 09-11-2023 10:27-0400 Body mass index (BMI) [Ratio] 29.93 kg/m2 Gretchen Bridenthal [employer] - 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 Work Phone: [facility] 09-11-2023 10:27-0400 Body temperature 97.59 [degF] Gretchen Bridenthal [employer] - 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 Work Phone: [facility] 09-11-2023 10:27-0400 Body weight 94.62 kg Gretchen Bridenthal [employer] - 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 Work Phone: [facility] 09-11-2023 10:27-0400 Respiratory rate 24 /min Gretchen Bridenthal [employer] - 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 Work Phone: [facility] 09-11-2023 10:27-0400 SaO2% (BldA) [Mass fraction] 94 % Gretchen Bridenthal [employer] - 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 Work Phone: [facility] 09-03-2023 09:26-0400 Body height 177.8 cm Nona Collins [employer] - 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 Work Phone: [facility] 09-03-2023 09:26-0400 Body mass index (BMI) [Ratio] 29.7 kg/m2 Nona Chi [employer] - 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 Work Phone: [facility] 09-03-2023 09:26-0400 Body weight 93.89 kg Nona Chi [employer] - 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 Work Phone: [facility] 09-03-2023 09:26-0400 Diastolic blood pressure 73 mm[Hg] Nona Collins [employer] - 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 Work Phone: [facility] 09-03-2023 09:26-0400 Heart rate 91 /min Nona Chi [employer] - 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 Work Phone: [facility] 09-03-2023 09:26-0400 Systolic blood pressure 148 mm[Hg] Nona Chi [employer] - 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 Work Phone: [facility] 08-21-2023 10:14-0400 Body mass index (BMI) [Ratio] 30.56 kg/m2 Gretchen Bridenthal [employer] - 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 Work Phone: [facility] 08-21-2023 10:14-0400 Body temperature 99.3 [degF] Gretchen Bridenthal [employer] - 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 Work Phone: [facility] 08-21-2023 10:14-0400 Body weight 96.62 kg Gretchen Bridenthal [employer] - 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 Work Phone: [facility] 08-21-2023 10:14-0400 Diastolic blood pressure 66 mm[Hg] Gretchen Bridenthal [employer] - 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 Work Phone: [facility] 08-21-2023 10:14-0400 Heart rate 105 /min Gretchen Bridenthal [employer] - 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 Work Phone: [facility] 08-21-2023 10:14-0400 Respiratory rate 24 /min Gretchen Bridenthal [employer] - 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 Work Phone: [facility] 08-21-2023 10:14-0400 SaO2% (BldA) [Mass fraction] 94 % Gretchen Cabrera [employer] - 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 Work Phone: [facility] 08-21-2023 10:14-0400 Systolic blood pressure 128 mm[Hg] Gretchen Cabrera [employer] - 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 Work Phone: [facility] 08-19-2023 09:28-0400 Body height 177.8 cm Danica Chan [employer] - 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 Work Phone: [facility] 08-19-2023 09:28-0400 Body mass index (BMI) [Ratio] 31.57 kg/m2 Danica Chan [employer] - 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 Work Phone: [facility] 08-19-2023 09:28-0400 Body weight 99.79 kg Danica Chan [employer] - 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 Work Phone: [facility] 08-19-2023 09:28-0400 Diastolic blood pressure 68 mm[Hg] Danica Chan [employer] - 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 Work Phone: [facility] 08-19-2023 09:28-0400 Heart rate 89 /min Danica Chan [employer] - 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 Work Phone: [facility] 08-19-2023 09:28-0400 Systolic blood pressure 139 mm[Hg] Danica Chan [employer] - 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 Work Phone: [facility] 08-05-2023 11:06-0400 Diastolic blood pressure 72 mm[Hg] Ta Young MD Work Phone: [facility] 08-05-2023 11:06-0400 Heart rate 83 /min Ta Young MD Work Phone: [facility] 08-05-2023 11:06-0400 Systolic blood pressure 127 mm[Hg] Ta Young MD Work Phone: [facility] 04-16-2024 07:53-0400 Body temperature 98.8 [degF] Ta Young MD Work Phone: [facility] 08-05-2023 07:53-0400 Respiratory rate 20 /min Ta Young MD Work Phone: [facility] 08-05-2023 07:53-0400 SaO2% (BldA) [Mass fraction] 93 % Ta Young MD Work Phone: [facility] 06-18-2023 11:03-0500 Body height 177.8 cm Ta Young MD Work Phone: [facility] 06-18-2023 11:03-0500 Body mass index (BMI) [Ratio] 31.85 kg/m2 Ta Young MD Work Phone: [facility] 06-18-2023 11:03-0500 Body temperature 97.3 [degF] Ta Young MD Work Phone: [facility] 06-18-2023 11:03-0500 Body weight 100.7 kg Ta Young MD Work Phone: [facility] 06-18-2023 11:03-0500 Diastolic blood pressure 95 mm[Hg] Ta Young MD Work Phone: [facility] 06-18-2023 11:03-0500 Heart rate 86 /min Ta Young MD Work Phone: [facility] 06-18-2023 11:03-0500 Systolic blood pressure 173 mm[Hg] Ta Young MD Work Phone: [facility] 05-20-2023 09:17-0500 Diastolic blood pressure 88 mm[Hg] Hermann Damian MD Work Phone: [facility] 05-20-2023 09:17-0500 Heart rate 67 /min Hermann Damian MD Work Phone: [facility] 05-20-2023 09:17-0500 Systolic blood pressure 146 mm[Hg] Hermann Damian MD Work Phone: [facility] 05-20-2023 08:44-0500 Body height 179.1 cm Hermann Damian MD Work Phone: [facility] 05-20-2023 08:44-0500 Body mass index (BMI) [Ratio] 31.97 kg/m2 Hermann Damian MD Work Phone: [facility] 05-20-2023 08:44-0500 Body weight 102.51 kg Hermann Damian MD Work Phone: [facility] 05-20-2023 08:44-0500 SaO2% (BldA) [Mass fraction] 90 % Hermann Damian MD Work Phone: [facility] 04-15-2023 10:05-0500 Body mass index (BMI) [Ratio] 30.72 kg/m2 Gretchen Bridenthal [employer] - 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 Work Phone: [facility] 04-15-2023 10:05-0500 Body temperature 98.2 [degF] Gretchen Bridenthal [employer] - 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 Work Phone: [facility] 04-15-2023 10:05-0500 Body weight 98.52 kg Gretchen Bridenthal [employer] - 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 Work Phone: [facility] 04-15-2023 10:05-0500 Diastolic blood pressure 71 mm[Hg] Gretchen Bridenthal [employer] - 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 Work Phone: [facility] 04-15-2023 10:05-0500 Heart rate 78 /min Gretchen Bridenthal [employer] - 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 Work Phone: [facility] 04-15-2023 10:05-0500 Respiratory rate 20 /min Gretchen Bridenthal [employer] - 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 Work Phone: [facility] 04-15-2023 10:05-0500 SaO2% (BldA) [Mass fraction] 95 % Gretchen Bridenthal [employer] - 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 Work Phone: [facility] 04-15-2023 10:05-0500 Systolic blood pressure 120 mm[Hg] Gretchen Bridenthal [employer] - 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 Work Phone: [facility] 04-10-2023 08:23-0500 Body height 179.1 cm Hermann Damian MD Work Phone: [facility] 04-10-2023 08:23-0500 Body mass index (BMI) [Ratio] 31.8 kg/m2 Hermann Damian MD Work Phone: [facility] 04-10-2023 08:23-0500 Body weight 101.97 kg Hermann Damian MD Work Phone: [facility] 04-10-2023 08:23-0500 Diastolic blood pressure 79 mm[Hg] Hermann Damian MD Work Phone: [facility] 04-10-2023 08:23-0500 Heart rate 82 /min Hermann aDmian MD Work Phone: [facility] 04-10-2023 08:23-0500 SaO2% (BldA) [Mass fraction] 90 % Hermann Damian MD Work Phone: [facility] 04-10-2023 08:23-0500 Systolic blood pressure 128 mm[Hg] Hermann Damian MD Work Phone: [facility] 04-07-2023 09:52-0500 Diastolic blood pressure 83 mm[Hg] Gretchen Bridenthal [employer] - 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 Work Phone: [facility] 04-07-2023 09:52-0500 Systolic blood pressure 148 mm[Hg] Gretchen Bridenthal [employer] - 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 Work Phone: [facility] 04-07-2023 09:38-0500 Body mass index (BMI) [Ratio] 31.54 kg/m2 Gretchen Bridenthal [employer] - 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 Work Phone: [facility] 04-07-2023 09:38-0500 Body temperature 98.4 [degF] Gretchen Bridenthal [employer] - 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 Work Phone: [facility] 04-07-2023 09:38-0500 Body weight 101.15 kg Gretchen Bridenthal [employer] - 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 Work Phone: [facility] 04-07-2023 09:38-0500 Heart rate 89 /min Gretchen Bridenthal [employer] - 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 Work Phone: [facility] 04-07-2023 09:38-0500 Respiratory rate 24 /min Gretchen Bridenthal [employer] - 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 Work Phone: [facility] 04-07-2023 09:38-0500 SaO2% (BldA) [Mass fraction] 94 % Gretchen Bridenthal [employer] - 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 Work Phone: [facility] 04-03-2023 14:44-0500 Body mass index (BMI) [Ratio] 32.45 kg/m2 Gretchen Bridenthal [employer] - 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 Work Phone: [facility] 04-03-2023 14:44-0500 Body temperature 98.6 [degF] Gretchen Bridenthal [employer] - 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 Work Phone: [facility] 04-03-2023 14:44-0500 Body weight 104.06 kg Gretchen Bridenthal [employer] - 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 Work Phone: [facility] 04-03-2023 14:44-0500 Diastolic blood pressure 82 mm[Hg] Gretchen Bridenthal [employer] - 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 Work Phone: [facility] 04-03-2023 14:44-0500 Heart rate 83 /min Gretchen Bridenthal [employer] - 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 Work Phone: [facility] 04-03-2023 14:44-0500 Respiratory rate 18 /min Gretchen Bridenthal [employer] - 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 Work Phone: [facility] 04-03-2023 14:44-0500 SaO2% (BldA) [Mass fraction] 92 % Gretchen Bridenthal [employer] - 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 Work Phone: [facility] 04-03-2023 14:44-0500 Systolic blood pressure 132 mm[Hg] Gretchen Bridenthal [employer] - 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 Work Phone: [facility] 12-16-2022 09:13-0400 Body mass index (BMI) [Ratio] 29.54 kg/m2 Gretchen Bridenthal [employer] - 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 Work Phone: [facility] 12-16-2022 09:13-0400 Body temperature 97.81 [degF] Gretchen Bridenthal [employer] - 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 Work Phone: [facility] 12-16-2022 09:13-0400 Body weight 94.71 kg Gretchen Bridenthal [employer] - 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 Work Phone: [facility] 12-16-2022 09:13-0400 Diastolic blood pressure 69 mm[Hg] Gretchen Bridenthal [employer] - 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 Work Phone: [facility] 12-16-2022 09:13-0400 Heart rate 69 /min Gretchen Bridenthal [employer] - 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 Work Phone: [facility] 12-16-2022 09:13-0400 Respiratory rate 24 /min Gretchen Bridenthal [employer] - 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 Work Phone: [facility] 12-16-2022 09:13-0400 Systolic blood pressure 137 mm[Hg] Gretchen Bridenthal [employer] - 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 Work Phone: [facility] 11-28-2022 08:18-0400 Body mass index (BMI) [Ratio] 29 kg/m2 Gretchen Bridenthal [employer] - 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 Work Phone: [facility] 11-28-2022 08:18-0400 Body temperature 97.81 [degF] Gretchen Bridenthal [employer] - 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 Work Phone: [facility] 11-28-2022 08:18-0400 Body weight 92.99 kg Gretchen Bridenthal [employer] - 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 Work Phone: [facility] 11-28-2022 08:18-0400 Diastolic blood pressure 74 mm[Hg] Gretchen Bridenthal [employer] - 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 Work Phone: [facility] 11-28-2022 08:18-0400 Heart rate 83 /min Gretchen Bridenthal [employer] - 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 Work Phone: [facility] 11-28-2022 08:18-0400 Respiratory rate 20 /min Gretchen Bridenthal [employer] - 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 Work Phone: [facility] 11-28-2022 08:18-0400 SaO2% (BldA) [Mass fraction] 92 % Gretchen Bridenthal [employer] - 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 Work Phone: [facility] 11-28-2022 08:18-0400 Systolic blood pressure 138 mm[Hg] Gretchen Bridenthal [employer] - 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 Work Phone: [facility] 11-18-2022 11:40-0400 Body mass index (BMI) [Ratio] 29.69 kg/m2 Gretchen Bridenthal [employer] - 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 Work Phone: [facility] 11-18-2022 11:40-0400 Body temperature 98.2 [degF] Gretchen Bridenthal [employer] - 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 Work Phone: [facility] 11-18-2022 11:40-0400 Body weight 95.21 kg Gretchen Bridenthal [employer] - 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 Work Phone: [facility] 11-18-2022 11:40-0400 Diastolic blood pressure 67 mm[Hg] Gretchen Bridenthal [employer] - 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 Work Phone: [facility] 11-18-2022 11:40-0400 Heart rate 87 /min Gretchen Bridenthal [employer] - 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 Work Phone: [facility] 11-18-2022 11:40-0400 Respiratory rate 20 /min Gretchen Bridenthal [employer] - 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 Work Phone: [facility] 11-18-2022 11:40-0400 SaO2% (BldA) [Mass fraction] 96 % Gretchen Bridenthal [employer] - 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 Work Phone: [facility] 11-18-2022 11:40-0400 Systolic blood pressure 129 mm[Hg] Gretchen Bridenthal [employer] - 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 Work Phone: [facility] 11-04-2022 11:17-0400 Body mass index (BMI) [Ratio] 29.2 kg/m2 Gretchen Bridenthal [employer] - 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 Work Phone: [facility] 11-04-2022 11:17-0400 Body temperature 98.91 [degF] Gretchen Bridenthal [employer] - 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 Work Phone: [facility] 11-04-2022 11:17-0400 Body weight 93.62 kg Gretchen Bridenthal [employer] - 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 Work Phone: [facility] 11-04-2022 11:17-0400 Diastolic blood pressure 67 mm[Hg] Gretchen Bridenthal [employer] - 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 Work Phone: [facility] 11-04-2022 11:17-0400 Heart rate 88 /min Gretchen Bridenthal [employer] - 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 Work Phone: [facility] 11-04-2022 11:17-0400 Respiratory rate 20 /min Gretchen Bridenthal [employer] - 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 Work Phone: [facility] 11-04-2022 11:17-0400 SaO2% (BldA) [Mass fraction] 99 % Gretchen Bridenthal [employer] - 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 Work Phone: [facility] 11-04-2022 11:17-0400 Systolic blood pressure 130 mm[Hg] Gretchen Bridenthal [employer] - 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 Work Phone: [facility] 10-18-2022 10:06-0400 Diastolic blood pressure 84 mm[Hg] Hermann Damian MD Work Phone: [employer] 10-18-2022 10:06-0400 Heart rate 73 /min Hermann Damian MD Work Phone: [employer] 10-18-2022 10:06-0400 Systolic blood pressure 137 mm[Hg] Hermann Damian MD Work Phone: [employer] 10-18-2022 09:24-0400 Body height 179.1 cm Hermann Damian MD Work Phone: [employer] 10-18-2022 09:24-0400 Body mass index (BMI) [Ratio] 29.03 kg/m2 Hermann Damian MD Work Phone: [employer] 10-18-2022 09:24-0400 Body weight 93.08 kg Hermann Damian MD Work Phone: [employer] 10-18-2022 09:24-0400 SaO2% (BldA) [Mass fraction] 92 % Hermann Damian MD Work Phone: [employer] 05-28-2019 12:45-0500 Body Temperature 97.59 [degF] Angel Solis [employer] Work Phone: 05-28-2019 12:45-0500 BP Diastolic 98 mm[Hg] Angel Solis [employer] Work Phone: 05-28-2019 12:45-0500 BP Systolic 129 mm[Hg] Anegl Solis [employer] Work Phone: 05-28-2019 12:45-0500 Pulse (Heart Rate) 61 /min Angel Solis [employer] Work Phone: 05-28-2019 12:45-0500 Pulse Oximetry 99 % Angel Solis [employer] Work Phone: 05-28-2019 12:45-0500 Respiratory Rate 20 /min Angel Solis [employer] Work Phone: 05-28-2019 09:29-0500 Height 177.8 cm Angel Solis [employer] Work Phone: 05-28-2019 09:21-0500 BMI (Body Mass Index) 30.28 kg/m2 Angel Solis [employer]ENN[employer]A Work Phone: 05-28-2019 09:21-0500 Body weight 95.71 kg Angel Solis [employer] Work Phone: 05-20-2019 10:31-0500 Body temperature 98.49 [degF] [facility] MD [facility] Work Phone: 05-20-2019 10:31-0500 Diastolic blood pressure 88 mm[Hg] Angel Solis MD Work Phone: [facility] Work Phone: 05-20-2019 10:31-0500 Heart rate 79 /min Angel Solis MD Work Phone: [facility] Work Phone: 05-20-2019 10:31-0500 Respiratory rate 16 /min Angel Solis MD Work Phone: [facility] Work Phone: 05-20-2019 10:31-0500 SaO2% (BldA) [Mass fraction] 93 % Angel Solis MD Work Phone: [facility] Work Phone: 05-20-2019 10:31-0500 Systolic blood pressure 146 mm[Hg] Angel Solis MD Work Phone: [facility] Work Phone: 05-20-2019 10:22-0500 Body height 177.8 cm Angel Solis MD Work Phone: [facility] Work Phone: 05-20-2019 10:22-0500 Body mass index (BMI) [Ratio] 30.29 kg/m2 Angel Solis MD Work Phone: [facility] Work Phone: 05-20-2019 10:22-0500 Body weight 95.77 kg Angel Solis MD Work Phone: [facility] Work Phone: Encounters Encounter Date Encounter Type Care Provider Facility Start: 10-13-2024 End: 10-13-2024 Office outpatient visit 25 minutes Gretchen Cabrera 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 Work Phone: [facility] Comment on above: Mixed hyperlipidemia (Primary Dx); Stage 3a chronic kidney disease (HCC); Other pulmonary embolism without acute cor pulmonale, unspecified chronicity (HCC); Sinus congestion; Prediabetes; Allergic rhinitis, unspecified seasonality, unspecified trigger; Essential hypertension, benign; OAB (overactive bladder); Essential (primary) hypertension; Slow transit constipation; Chronic rhinitis Start: 10-13-2024 End: 10-13-2024 [facility] Start: 09-29-2024 End: 09-29-2024 Office outpatient visit 15 minutes Yashira Coffman Michael [employer] - 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 Work Phone: [facility] Comment on above: Allergic rhinitis, u nspecified seasonality, unspecified trigger (Primary Dx) Start: 09-29-2024 End: 09-29-2024 ambulatory YASHIRA [facility] Start: 09-28-2024 End: 09-28-2024 ambulatory Meri Freire RN [facility] Clinical Communication Start: 09-28-2024 End: 09-28-2024 Patient encounter procedure Meri Freire RN [facility] Clinical Communication Start: 05-24-2024 End: 05-24-2024 Refill Hermann Damian MD Work Phone: [facility] Clinical Communication Comment on above: Essential hypertensi on, benign Start: 04-15-2024 End: 04-15-2024 ambulatory Sammie Renteria RN [facility] Clinical Communication Start: 04-15-2024 End: 04-15-2024 Patient encounter procedure Sammie Renteria RN [facility] Clinical Communication Start: 04-12-2024 End: 04-12-2024 Assay of hemosiderin, mejia Damian MD Work Phone: [facility] Work Phone: Start: 04-12-2024 End: 04-12-2024 Patient encounter procedure [facility] MD [facility] Comment on above: Routine general medi mariana examination at health care facility (Primary Dx); Benign head tremor; Stage 3a chronic kidney disease (HCC); Essential hypertension, benign; BPH with obstruction/lower urinary tract symptoms; Prediabetes; Mixed hyperlipidemia; Influenza vaccine refused Start: 04-12-2024 End: 04-12-2024 ambulatory HERMANN [facility] Start: 04-12-2024 End: 04-12-2024 Encounter for general adult medical examination without abnormal findings [facility] Start: 04-09-2024 End: 04-09-2024 ambulatory Lisa Sanchez RN [facility] Clinical Communication Start: 04-09-2024 End: 04-12-2024 Patient encounter procedure Lisa Sanchez RN [facility] Clinical Communication Start: 04-07-2024 End: 04-08-2024 ambulatory Sina Augustine Facility:[facility] Start: 2024 End: 2024 Office outpatient visit 15 minutes Yashira Torres CNP Work Phone: [facility] Comment on above: Acute maxillary sinu sitis, recurrence not specified (Primary Dx) Start: 2024 End: 2024 Patient encounter procedure Rosalba Carmichael RN [facility] Clinical Communication Start: 2024 End: 2024 ambulatory Rosalba Carmichael RN [facility] Clinical Communication Start: 03-10-2024 End: 03-10-2024 ambulatory HERMANN [facility] Start: 02-12-2024 End: 02-27-2024 Telephone encounter Sana Marcos DO Work Phone: [facility] Urology - [place] Start: 02-12-2024 End: 02-12-2024 ambulatory [facility] Start: 02-12-2024 End: 02-12-2024 Office outpatient visit 25 minutes Sana Marcos DO Work Phone: [facility] - [place] Comment on above: Urinary retention (P rimary Dx) Start: 02-03-2024 End: 02-03-2024 ambulatory [facility] Start: 02-01-2024 End: 02-01-2024 Emergency department patient visit Conrad Knox MD Work Phone: [facility] Comment on above: Suprapubic catheter dysfunction, initial encounter (HCC) (Primary Dx) Start: 01-30-2024 End: 01-30-2024 Emergency department patient visit Alberto Angeles DO Work Phone: [facility] Comment on above: Suprapubic catheter dysfunction, subsequent encounter (Primary Dx) Start: 01-29-2024 End: 01-30-2024 Emergency department patient visit King Baeza MD Work Phone: [facility] Comment on above: Obstruction of Lopez catheter, initial encounter (HCC) (Primary Dx) Start: 01-28-2024 End: 01-28-2024 Subsequent hospital visit by physician [facility] Exam Room [address] [facility] CT Comment on above: Arrived Start: 01-28-2024 End: 01-28-2024 Emergency department patient visit Andres Servin MD Work Phone: [facility] Comment on above: Acute cystitis witho ut hematuria (Primary Dx) Start: 01-15-2024 End: [facility] Start: 01-13-2024 End: 01-13-2024 Telephone encounter Hermann Damian MD Work Phone: [facility] Comment on above: Other ([facility] Home Nurse) Start: 01-05-2024 End: 01-06-2024 ambulatory [facility] Start: 01-05-2024 End: 01-06-2024 Subsequent hospital visit by physician Sana Marcos DO Work Phone: [facility] H5 Comment on above: Benign prostatic hyp erplasia with lower urinary tract symptoms; Retention of urine, unspecified Start: 01-02-2024 End: 01-02-2024 Telephone encounter Sana Marcos DO Work Phone: [facility] - [place] Comment on above: Other Start: 12-29-2023 End: 12-29-2023 ambulatory [facility]NA PRITI [facility] Start: 12-24-2023 End: 12-24-2023 Office outpatient visit 15 minutes Gretchen Josefinaal 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 Work Phone: [facility] Comment on above: Pre-operative cleara nce (Primary Dx) Start: 12-24-2023 End: 12-24-2023 Preoperative state Gretchen Justicekateal 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 Work Phone: [facility] [employer] Work Phone: Start: 12-24-2023 End: 12-24-2023 [facility] Start: 12-24-2023 End: 12-24-2023 Encounter for other [facility]procedural [facility] Start: 12-16-2023 End: 01-25-2024 Telephone encounter Sana Marcos DO Work Phone: [facility] - [place] Comment on above: Surgery Scheduling Start: 12-16-2023 End: 12-16-2023 Office outpatient visit 25 minutes Sana Marcos DO Work Phone: [facility] Comment on above: Urinary retention (P rimary Dx); BPH with obstruction/lower urinary tract symptoms; Constipation, unspecified constipation type; Acute pulmonary embolism, unspecified pulmonary embolism type, unspecified whether acute cor pulmonale present ([facility]) Start: 12-16-2023 End: 12-16-2023 ambulatory [facility] Start: 11-25-2023 End: 11-25-2023 ambulatory HERMANN DAM[facility] Start: 11-12-2023 End: 11-12-2023 Office outpatient visit 15 minutes Gretchen Bridenthal 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 Work Phone: [facility] Comment on above: Chronic cough (Prima ry Dx); Anemia, unspecified type Start: 11-12-2023 End: 11-12-2023 ambulatory [facility]CHEN BRIDENT[facility] Start: 11-07-2023 End: 11-07-2023 Orders Only Hermann Damian MD Work Phone: [facility] Start: 11-04-2023 End: 11-04-2023 ambulatory HERMANN [facility] Start: 11-03-2023 End: 11-03-2023 ambulatory Rosalba Carmichael RN [facility] Clinical Communication Start: 11-03-2023 End: 11-03-2023 Patient encounter procedure Rosalba Carmichael RN [facility] Clinical Communication Start: 10-16-2023 End: 10-16-2023 Telephone encounter Sana Marcos DO Work Phone: [facility] Start: 10-15-2023 End: 10-15-2023 Office outpatient visit 25 minutes Ta Young MD Work Phone: [facility] Comment on above: Lumbar stenosis with neurogenic claudication (Primary Dx) Start: 10-14-2023 End: 10-14-2023 Telephone encounter Gretchen Justiceenthal 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 Work Phone: [facility] Comment on above: Results Start: 10-13-2023 End: 10-13-2023 Subsequent hospital visit by physician Yuliya Diaz 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 Work Phone: [facility] Radiology Comment on above: Lumbar stenosis with neurogenic claudication Start: 10-13-2023 End: 10-13-2023 Office outpatient visit 25 minutes Gretchen Bridenthal 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 Work Phone: [facility] Comment on above: Acute pulmonary embo lism, unspecified pulmonary embolism type, unspecified whether acute cor pulmonale present (HCC) (Primary Dx); Essential hypertension, benign; Anemia, unspecified type; Subacute cough; Sinus congestion Start: 10-07-2023 End: 10-07-2023 Telephone encounter Sana Marcos DO Work Phone: [facility] Comment on above: Other Hospital Follow-up Other; Release of In formation Start: 10-03-2023 ambulatory Elana Howard RN [facility] Clinical Communication Start: 10-03-2023 Patient encounter procedure Elana Howard RN [facility] Clinical Communication Start: 10-03-2023 End: 10-03-2023 Subsequent hospital visit by physician [facility] Radiology Comment on above: Arrived Start: 10-03-2023 End: 10-06-2023 Evaluation and management of inpatient Stephen Schmitz MD Work Phone: [facility] Surgical Progressive Care Unit PCU H6 Comment on above: Hypoxia (Primary Dx) ; Bilateral leg edema Start: 10-02-2023 End: 10-02-2023 Subsequent hospital visit by physician Joseph Xr Exam Room 1 [facility] X-Ray Comment on above: Arrived Start: 09-29-2023 Telephone encounter Sana Marcos DO Work Phone: [facility] Comment on above: Surgery Scheduling Start: 09-29-2023 End: 09-29-2023 Patient encounter procedure Sana Marcos DO Work Phone: [facility] Comment on above: Benign prostatic hyp erplasia with urinary retention (Primary Dx); Constipation, unspecified constipation type Start: 09-11-2023 End: 09-11-2023 Office outpatient visit 25 minutes Gretchen Cabrera 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 Work Phone: [facility] Comment on above: Essential hypertensi on, benign (Primary Dx); Drug-induced constipation; Toenail fungus; Sinus congestion; Primary hypertension; Urinary retention; Chronic rhinitis; Subacute cough; Anemia, unspecified type Start: 09-08-2023 Telephone encounter Sana Marcos DO Work Phone: [facility] Start: 09-03-2023 End: 09-03-2023 Office outpatient visit 25 minutes Nona Collins [employer] - 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 Work Phone: [facility] Comment on above: Urinary retention (P rimary Dx); Benign prostatic hyperplasia with urinary retention Start: 08-28-2023 Telephone encounter Ciro dobbins MD Work Phone: [facility] Start: 08-27-2023 Telephone encounter Hermann De Leon MD Work Phone: [facility] Start: 08-21-2023 End: 08-21-2023 Office outpatient visit 25 minutes Gretchen Cabrera [employer] - 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 Work Phone: [facility] Comment on above: Spinal stenosis of l umbosacral region (Primary Dx); Urinary retention; Anemia, unspecified type; Acute bacterial sinusitis; Post-nasal drainage; Bilateral lower extremity edema Start: 08-19-2023 End: 08-19-2023 Office outpatient visit 25 minutes Danica Chan [employer] 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 Work Phone: [facility] Comment on above: Encounter for Lopez catheter removal (Primary Dx); Urinary retention Start: 08-05-2023 End: 08-18-2023 Evaluation and management of inpatient HERMANN DAMIAN Facility:[facility] Start: 08-05-2023 Telephone encounter Jayme mccain MD Work Phone: [facility] Start: 07-31-2023 End: 08-05-2023 Evaluation and management of inpatient Ta Young MD Work Phone: [facility] Surgical Progressive Care Unit PCU H6 Comment on above: Lumbar stenosis with neurogenic claudication (Primary Dx); Pre-op examination Start: 07-31-2023 End: 08-05-2023 Preprocedural examination done Ta Young MD Work Phone: [facility] Start: 06-18-2023 End: 06-18-2023 Office outpatient new 45 minutes Ta Young MD Work Phone: [facility] Comment on above: Lumbar stenosis with neurogenic claudication (Primary Dx); Spondylolisthesis of lumbar region Start: 05-26-2023 Telephone encounter Hermann De Leon MD Work Phone: [facility] Comment on above: Other Essential hypertensi on, benign Start: 05-20-2023 End: 05-20-2023 Office outpatient visit 10 minutes Hermann Damian MD Work Phone: [facility] Comment on above: Greater trochanteric bursitis of right hip (Primary Dx); Essential hypertension, benign Start: 04-15-2023 End: 04-15-2023 Office outpatient visit 15 minutes Gretchen Cabrera [employer] - 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 Work Phone: [facility] Comment on above: Bilateral lower extr emity edema (Primary Dx); Essential hypertension, benign Start: 04-10-2023 End: 04-10-2023 Patient encounter procedure Hermann Damian MD Work Phone: [facility] Comment on above: Medicare annual well ness visit, subsequent (Primary Dx); Essential hypertension, benign; Benign head tremor; Urge incontinence; OAB (overactive bladder); Bilateral lower extremity edema; Prediabetes; Mixed hyperlipidemia; Screening for prostate cancer Start: 04-07-2023 ambulatory Meri Freire RN [facility]ji Clinical Communication Start: 04-07-2023 Patient encounter procedure Meri Underwood Clinical Communication Start: 04-07-2023 End: 04-07-2023 Office outpatient visit 15 minutes Gretchen Cabrera 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 Work Phone: [facility] Comment on above: Bilateral lower extr emity edema (Primary Dx); Dermatitis; Essential hypertension, benign Start: 04-03-2023 End: 04-03-2023 Subsequent hospital visit by physician Gretchen Cabrera [employer] - 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 Work Phone: [facility] Comment on above: Swelling of left low er extremity Start: 04-03-2023 End: 04-03-2023 Office outpatient visit 25 minutes Gretchen Bridenthal [employer] 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 Work Phone: [facility] Comment on above: Swelling of left low er extremity (Primary Dx); Bilateral lower extremity edema; Essential hypertension, benign; Dermatitis Start: 04-03-2023 [facility] Start: 04-03-2023 [facility] Start: 12-16-2022 End: 12-16-2022 Office outpatient visit 15 minutes Gretchen Bridenthal [employer] - 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 Work Phone: [facility] Comment on above: Essential hypertensi on, benign (Primary Dx); Acute deep vein thrombosis (DVT) of popliteal vein of left lower extremity (HCC) Start: 11-28-2022 End: 11-28-2022 Office outpatient visit 15 minutes Gretchen Bridenthal [employer] 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 Work Phone: [facility] Comment on above: Essential hypertensi on, benign (Primary Dx); Acute deep vein thrombosis (DVT) of popliteal vein of left lower extremity (HCC) Start: 11-25-2022 Orders Only Gretchen Briden thal [employer] - 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 Work Phone: [facility] Start: 11-18-2022 End: 11-18-2022 Office outpatient visit 25 minutes Gretchen Bridenthal [employer] - 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 Work Phone: [facility] Comment on above: Acute deep vein thro mbosis (DVT) of popliteal vein of left lower extremity (HCC) (Primary Dx); Essential hypertension, benign Start: 11-07-2022 ambulatory [facility] Start: 11-07-2022 Patient encounter procedure [facility] Start: 11-04-2022 ambulatory [facility] Start: 11-04-2022 Patient encounter procedure Sammie Renteria RN [facility] Clinical Communication Start: 11-04-2022 End: 11-04-2022 Subsequent hospital visit by physician [facility] Exam Room 2 [facility] US Comment on above: Pain and swelling of left lower leg Start: 11-04-2022 End: 11-04-2022 Office outpatient visit 25 minutes Gretchen Cabrera [employer] - 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 Work Phone: [facility] Comment on above: Pain and swelling of left lower leg (Primary Dx); Cellulitis of left lower extremity; Allergic rhinitis, unspecified seasonality, unspecified trigger Start: 10-18-2022 End: 10-18-2022 Office outpatient visit 25 minutes Hermann Damian MD Work Phone: [facility] Comment on above: Essential hypertensi on, benign (Primary Dx); Mixed hyperlipidemia; Stage 3a chronic kidney disease (HCC); Prediabetes; Elevated PSA, between 10 and less than 20 ng/ml; OAB (overactive bladder); Chronic rhinitis Start: 10-04-2022 End: 10-04-2022 Subsequent hospital visit by physician Gretchen Cabrera [employer] - 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 Work Phone: [facility] Radiology Comment on above: Chronic cough Start: 09-30-2022 ambulatory Maribel Cha RN [facility] Clinical Communication Start: 09-30-2022 Patient encounter procedure Maribel Cha RN [facility] Clinical Communication Start: 08-08-2022 End: 08-08-2022 Subsequent hospital visit by physician Hermann Damian MD Work Phone: [employer] [facility] Comment on above: Pain in right hip Start: 12-15-2019 End: 12-15-2019 Subsequent hospital visit by physician Janice Anne Work Phone: [facility] Start: 05-28-2019 End: 05-28-2019 Subsequent hospital visit by physician Angel Solis Work Phone: [facility] General Surgery Comment on above: Umbilical hernia wit hout obstruction and without gangrene (Primary Dx) Start: 05-20-2019 End: 05-20-2019 Subsequent hospital visit by physician Angel Solis MD Work Phone: [facility] Comment on above: Arrived Procedures Date Procedure Procedure Detail Performing Clinician Start: 09-29-2024 Adult depression scr eening assessment Meri Freire RN Start: 04-12-2024 Adult depression scr eening assessment Hermann Damian MD Work Phone: Start: 04-12-2024 Lipid 1996 panel - S mabel or Plasma Sammie Renteria RN Start: 01-28-2024 Ct abdomen & pelvis w/o contrast material Andres Serivn MD Work Phone: Start: 01-28-2024 Comprehensive metabolic panel Andres Servin MD Work Phone: Start: 01-28-2024 Urinalysis complete panel - Urine Andres Servin MD Work Phone: Start: 01-28-2024 Urnls dip stick/tabl et reagent auto microscopy Andres Servin MD Work Phone: Start: 01-05-2024 End: 01-05-2024 Aspiration bladder insert suprapubic catheter Sana Marcos DO Work Phone: Start: 01-05-2024 End: 01-05-2024 Cystourethroscopy Sana Marcos DO Work Phone: Start: 01-05-2024 End: 01-05-2024 Trurl electrosurg rescj prostate bleed complete Sana Marcos DO Work Phone: Start: 10-05-2023 Echo tthrc r-t 2d w/ wom-mode compl spec&colr d Jeremie Adame MD Work Phone: Start: 10-04-2023 Culture bacterial qu anttative colony count urine Thomas Courtney MD Work Phone: Start: 10-04-2023 Urinalysis complete panel - Urine Thomas Courtney MD Work Phone: Start: 10-04-2023 OXYGEN THERAPY Stephen Schmitz MD Work Phone: Start: 10-04-2023 Dup-scan xtr veins c omplete bilateral study Jeremie Adame MD Work Phone: Start: 10-04-2023 OXYGEN THERAPY Stephen Schmitz MD Work Phone: Start: 10-04-2023 Blood count complete auto&auto difrntl wbc Jeremie Adame MD Work Phone: Start: 10-03-2023 Basic metabolic pane l calcium total Jeremie Adame MD Work Phone: Start: 10-03-2023 Assay of troponin quantitative Stephen Schmitz MD Work Phone: Start: 10-03-2023 Ct angiography chest w/contrast/noncontrast Stephen Schmitz MD Work Phone: Start: 10-03-2023 Radiologic exam ches t single view Stephen Schmitz MD Work Phone: Start: 10-03-2023 Culture bacterial qu anttative colony count urine Stephen Schmitz MD Work Phone: Start: 10-03-2023 Urinalysis complete panel - Urine Stephen Schmitz MD Work Phone: Start: 10-03-2023 Comprehensive metabolic panel Stephen Schmitz MD Work Phone: Start: 10-03-2023 SARS-COV-2, FLU A/B, AND RSV COMBO Stephen Schmitz MD Work Phone: Start: 10-03-2023 OXYGEN THERAPY Stephen Schmitz MD Work Phone: Start: 10-03-2023 Ecg routine ecg w/le ast 12 lds trcg only w/o i&r Stephen Schmitz MD Work Phone: Start: 10-02-2023 Radiologic exam chest 2 views Tanna Aguirrefield 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 Work Phone: Start: 08-05-2023 Blood count complete automated James Simpson MD Work Phone: Start: 08-04-2023 Basic metabolic pane l calcium total James Simpson MD Work Phone: Start: 08-03-2023 Us retroperitoneal r eal time w/image complete Ioana Starkey MD Work Phone: Start: 08-03-2023 Basic metabolic pane l calcium total James Simpson MD Work Phone: Start: 08-01-2023 Comprehensive metabolic panel Zhang Brasher MD Work Phone: Start: 07-31-2023 FL GUIDANCE OR USE O NLY - NON-RESULTABLE Ta Young MD Work Phone: Start: 07-31-2023 End: 07-31-2023 Arthrodesis posterior/posterolateral lumbar Ta Young MD Work Phone: Start: 04-10-2023 Comprehensive metabolic panel Hermann Damian MD Work Phone: Start: 04-10-2023 Lipid panel Hermann De Leon MD Work Phone: Start: 04-10-2023 PSA TOTAL (SCREENING) D paris Damian MD Work Phone: Start: 04-10-2023 Adult depression scr eening assessment Hermann Damian MD Work Phone: Start: 04-10-2023 Lipid 1996 panel - S mabel or Plasma Hermann Damian MD Work Phone: Start: 04-03-2023 Dup-scan xtr veins unilateral/limited study Gretchen Bridenthal [employer] - 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 Work Phone: Start: 04-03-2023 Comprehensive metabolic panel Gretchen Bridenthal [employer] - 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 Work Phone: Start: 11-04-2022 Dup-scan xtr veins unilateral/limited study Gretchen Bridenthal [employer] - 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 Work Phone: Start: 10-18-2022 Lipid 1996 panel - S mabel or Plasma Gretchen Bridenthal [employer] - 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 Work Phone: Start: 10-04-2022 Radiologic exam chest 2 views Gretchen Cabrera [employer] - 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 Work Phone: Start: 04-19-2022 Lipid 1996 panel - S mabel or Plasma Hermnan Damian MD Work Phone: Start: 04-18-2022 Adult depression scr eening assessment Gretchen Cabrera [employer] - 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 Work Phone: Start: 05-28-2019 OPERATIVE REPORT 3m Sca nning Start: 05-20-2019 Basic metabolic pane l calcium total Damivlad Iyer MD Work Phone: Start: 05-20-2019 Ecg routine ecg w/le ast 12 lds w/i&r Damivlad Iyer MD Work Phone: Plan of Treatment Date Care Activity Detail Author Start: 04-12-2029 Lipid panel Lipid Panel [facility] Start: 04-10-2028 Lipid panel Lipid Panel [facility] Start: 04-06-2028 DTaP/Tdap/Td vaccine (2 - Td) DTaP/Tdap/Td vaccine (2 - Td) [facility] Work Phone: Start: 04-06-2028 DTaP/Tdap/Td Vaccines (2 - Td or Tdap) DTaP/Tdap/Td Vaccines (2 - Td or Tdap) [facility] Start: 10-19-2027 Lipid panel Lipid Panel [facility] Start: 04-19-2027 Lipid panel Lipid Panel [facility] Start: 09-29-2025 Depression Screening Depression Screening [facility] Start: 04-18-2025 End: 04-18-2025 Patient encounter procedure 04/18/2025 9:00 AM EST Office Visit [facility] [address] [place], [place] [id number] Gretchen Cabrera APRN - CNP [address] [place] [address] [place] [address] [facility] [place] Start: 04-12-2025 COVID-19 Vaccine (2023- season) COVID-19 Vaccine ( season) [facility] Comment on above: Postponed from 12/21/2023 (Patient Refus ed) Start: 04-12-2025 Depression Screening Depression Screening [facility] Start: 04-12-2025 Examination of skin Derm Melanoma Skin Check [facility] Comment on above: Postponed from 08/26/2023 (Patient Refus ed) Start: 12-20-2024 Influenza vaccination Influenza Vaccine (Season Ended) [facility] Start: 10-18-2024 Influenza vaccination Influenza Vaccine (#1) [facility] Comment on above: Postponed from 12/21/2023 (Patient Refus ed) Start: 10-13-2024 End: 10-13-2025 Basic metabolic 1998 panel - Serum or Plasma Basic metabolic panel Lab Routine Stage 3a chronic kidney disease (HCC) Expected: 10/13/2024 (Approximate), Expires: 10/13/2025 [facility] Work Phone: Comment on above: Expected: 10/13/2024 (Approximate), Expi res: 10/13/2025 Start: 10-13-2024 End: 10-13-2024 Patient encounter procedure 10/13/2024 10:20 AM EDT Office Visit [facility] [place] [address] [facility] [place] [address] [place] [address] Gretchen Cabrera, [employer] - 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 [address] [facility] [address] [place] [address] [place] [address] [facility] [place] Start: 09-29-2024 End: 09-29-2024 Patient encounter procedure 09/29/2024 11:00 AM EDT Office Visit [facility] [place] [address] [place] [address] [place] [address] Yashira Rodriguez, [employer] - 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 [address] [facility] [place] [address] [facility] [place] Start: 06-02-2024 End: 06-02-2024 Clinical Support 06/02/2024 11:00 AM EST Clinical Support [facility] [place] [address] [place] [address] [facility] [place] Start: 05-14-2024 End: 05-14-2024 Clinical Support 05/14/2024 10:30 AM EST Clinical Support [facility] [place] [address] [place] [address] [place] [address] [facility] [place] Start: 05-05-2024 End: 05-05-2024 Clinical Support 05/05/2024 11:00 AM EST Clinical Support [facility] [place] [address] [place] [address] [facility] [place] Start: 04-21-2024 Medicare Advantage Annual Wellness Visit Medicare Advantage Annual Wellness Visit [facility] Start: 04-15-2024 COVID-19 Vaccine () COVID-19 Vaccine () [facility] [employer] Comment on above: Postponed from 12/20/2022 (Patient Refus ed) Start: 04-15-2024 RSV Immunization aged 60 or older (1 - 1-dose 60+ series) RSV Immunization aged 60 or older (1 - 1-dose 60+ series) [facility] Comment on above: Postponed from 1996 (Patient Refus ed) Start: 04-15-2024 RSV Immunization for Adults (1 - 1-dose 75+ series) RSV Immunization for Adults (1 - 1-dose 75+ series) [facility] Comment on above: Postponed from 2011 (Patient Refus ed) Start: 04-12-2024 End: 04-09-2025 Comprehensive metabolic 1998 panel - Serum or Plasma Comprehensive metabolic panel Lab Routine Prediabetes Expected: 04/12/2024 (Approximate), Expires: 04/09/2025 [facility] [employer] Comment on above: Expected: 04/12/2024 (Approximate), Expi res: 04/09/2025 Start: 04-12-2024 End: 04-09-2025 Hemoglobin A1c measurement Hemoglobin A1c Lab Routine Prediabetes Expected: 04/12/2024 (Approximate), Expires: 04/09/2025 [facility] Comment on above: Expected: 04/12/2024 (Approximate), Expi res: 04/09/2025 Start: 04-12-2024 End: 04-09-2025 Lipid 1996 panel - Serum or Plasma Lipid panel Lab Routine Mixed hyperlipidemia Expected: 04/12/2024 (Approximate), Expires: 04/09/2025 [employer] Work Phone: Comment on above: Expected: 04/12/2024 (Approximate), Expi res: 04/09/2025 Start: 04-12-2024 End: 04-12-2024 Patient encounter procedure [facility] Start: 04-10-2024 Depression Screening Depression Screening [facility] Start: 04-07-2024 End: 04-07-2024 Clinical Support 04/07/2024 11:00 AM EST Clinical Support [facility] [place] [address] [place] [phone] [facility] [place] Start: 03-18-2024 Medicare Advantage Annual Wellness Visit Medicare Advantage Annual Wellness Visit [facility] Comment on above: Postponed from 04/21/2023 (Other System Reasons) Start: 03-10-2024 End: 03-10-2024 Clinical Support 03/10/2024 11:00 AM EST Clinical Support [facility] [place] [address] [place] [address] [facility] [place] Start: 03-02-2024 End: 03-02-2024 Clinical Support [facility] Start: 02-12-2024 End: 02-12-2024 Patient encounter procedure [facility] Start: 02-03-2024 End: 02-03-2024 Clinical Support [facility] Start: 01-15-2024 End: 01-15-2024 Clinical Support [facility] Start: 01-13-2024 End: 01-12-2025 XR Chest 2 Views XR chest 2 views Imaging Routine Wheezing Expected: 01/13/2024, Expires: 01/12/2025 [employer] Work Phone: Comment on above: Expected: 01/13/2024, Expires: Start: 01-07-2024 End: 01-07-2024 Patient encounter procedure [facility] Start: 01-06-2024 End: 01-06-2024 Clinical Support 01/06/2024 10:30 AM EDT Clinical Support [facility] [address] [place] [address] [facility] Start: 01-05-2024 End: 01-05-2024 Admission to same day surgery center 01/05/2024 8:30 AM EDT - 01/05/2024 10:30 AM EDT Surgery [facility] [address] [facility] [place] [phone] Sana Marcos DO [address] [place] [address] CYSTOSCOPY [89225 (CPT )] [facility] Comment on above: CYSTOSCOPY [22014 (CPT )] Start: 01-05-2024 End: 01-05-2024 Aspiration bladder insert suprapubic catheter ASPIRATION OF BLADDER WITH INSERTION OF SUPRAPUBIC CATHETER Benign prostatic hyperplasia with lower urinary tract symptoms Retention of urine, unspecified 01/05/2024 8:30 AM EDT [facility] Operating Room Start: 01-05-2024 End: 01-05-2024 Cystourethroscopy CYSTOSCOPY Benign prostatic hyperplasia with lower urinary tract symptoms Retention of urine, unspecified 01/05/2024 8:30 AM EDT [facility] Operating Room Start: 01-05-2024 Subsequent hospital visit by physician 01/05/2024 8:30 AM EDT Hospital Encounter [facility] [address] [facility] [place] [phone] Sana Marcos DO [address] [place] [address] [facility] Start: 01-05-2024 End: 01-05-2024 Trurl electrosurg rescj prostate bleed complete TRANSURETHRAL RESECTION OF PROSTATE Benign prostatic hyperplasia with lower urinary tract symptoms Retention of urine, unspecified 01/05/2024 8:30 AM EDT [facility] Start: 12-29-2023 End: 12-29-2023 Admission to establishment 12/29/2023 3:00 PM EDT Pre-Admission Testing [facility] Pre-Admit Testing [address] [facility] [place] [phone] Sana Marcos DO [address] [place] [address] [facility] Pre-Admit Testing Start: 12-24-2023 End: 12-24-2023 Patient encounter procedure 12/24/2023 10:40 AM EDT Office Visit [facility] [address] [place] [address] Sana Marcos DO [address] [place] [address] [facility] Start: 12-23-2023 End: 12-23-2023 Clinical Support 12/23/2023 10:00 AM EDT Clinical Support [facility] [address] [place] [phone] [facility] Start: 12-21-2023 COVID-19 Vaccine ( season) COVID-19 Vaccine ( season) [facility] Start: 12-21-2023 COVID-19 Vaccine ( season) COVID-19 Vaccine ( season) [facility] Start: 12-21-2023 Influenza vaccination [facility] Start: 12-16-2023 End: 12-16-2023 Patient encounter procedure 12/16/2023 10:40 AM EDT Office Visit [facility] [address] [place] [phone] Sana Marcos DO [address] [place] [address] [facility] Start: 11-25-2023 End: 11-25-2023 Clinical Support 11/25/2023 10:00 AM EDT Clinical Support [facility] [address] [place] [phone] [facility] Start: 11-11-2023 End: 11-11-2023 Patient encounter procedure 11/11/2023 1:20 PM EDT Office Visit [facility] [address] [place] [phone] Maribel Mcgovern, [employer] - 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 [address] [place] [phone] [facility] Start: 11-04-2023 End: 11-04-2023 Clinical Support 11/04/2023 8:30 AM EDT Clinical Support [facility] [address] [place] [phone] [facility] Start: 10-28-2023 End: 10-28-2023 Clinical Support 10/28/2023 8:00 AM EDT Clinical Support [facility] [address] [place] [phone] [facility] Start: 10-19-2023 Influenza vaccination Influenza Vaccine (#1) [facility] Comment on above: Postponed from 12/20/2022 (Patient Refus ed) Start: 10-15-2023 End: 10-15-2023 Patient encounter procedure [facility] Start: 10-13-2023 End: 10-12-2024 CBC W Auto Differential panel - Blood CBC auto differential Lab Routine Anemia, unspecified type Expected: 10/13/2023 (Approximate), Expires: 10/12/2024 [facility] [employer] Work Phone: Comment on above: Expected: 10/13/2023 (Approximate), Expi res: 10/12/2024 Start: 10-13-2023 End: 10-12-2024 Iron and Iron binding capacity panel - Serum or Plasma Iron and TIBC Lab Routine Anemia, unspecified type Expected: 10/13/2023 (Approximate), Expires: 10/12/2024 [facility] Comment on above: Expected: 10/13/2023 (Approximate), Expi res: 10/12/2024 Start: 10-13-2023 End: 10-13-2023 Patient encounter procedure [facility] Start: 10-07-2023 End: 10-07-2023 Admission to same day surgery center 10/07/2023 8:30 AM EDT - 10/07/2023 10:30 AM EDT Surgery [facility] [address] [place] [phone] Sana Marcos, DO [address] [place] [address] CYSTOSCOPY [68633 (CPT )] [facility] Comment on above: CYSTOSCOPY [83682 (CPT )] Start: 10-07-2023 End: 10-07-2023 Anesthesia consultation 10/07/2023 8:30 AM EDT Anesthesia Event [facility] [address] [facility] [place] [phone] Tanna Finch, [employer] - 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 [address] [place] [address] [facility] Start: 10-07-2023 End: 10-07-2023 Cystostomy cystotomy w/drainage CYSTOSTOMY CYSTOTOMY WITH DRAINAGE Benign prostatic hyperplasia with lower urinary tract symptoms Retention of urine, unspecified 10/07/2023 8:30 AM EDT [facility] Operating Room Start: 10-07-2023 End: 10-07-2023 Cystourethroscopy CYSTOSCOPY Benign prostatic hyperplasia with lower urinary tract symptoms Retention of urine, unspecified 10/07/2023 8:30 AM EDT [facility] Start: 10-07-2023 Subsequent hospital visit by physician 10/07/2023 8:30 AM EDT Hospital Encounter [facility] [address] [facility] [place] [place] [phone] Sana Marcos, DO [address] [place] [address] [facility] Start: 10-07-2023 End: 10-07-2023 Trurl electrosurg rescj prostate bleed complete TRANSURETHRAL RESECTION OF PROSTATE Benign prostatic hyperplasia with lower urinary tract symptoms Retention of urine, unspecified 10/07/2023 8:30 AM EDT [facility] Start: 10-06-2023 End: 10-06-2023 Patient encounter procedure 10/06/2023 3:20 PM EDT Procedure Visit [facility] [address] [place] [phone] Ameya Madison MD [address] [place] [address] [facility] Start: 10-02-2023 End: 10-02-2023 Anesthesia consultation 10/02/2023 11:59 PM EDT Anesthesia Event [facility] [address] [facility] [place] [phone] Tanna Finch [employer] - 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 [address] [place] [address] [facility] Start: 10-02-2023 End: 10-02-2023 Admission to establishment [facility] Pre-Admit Testing Start: 09-29-2023 End: 09-29-2023 Patient encounter procedure 09/29/2023 9:20 AM EDT Procedure Visit [facility] [address] [place] [phone] Sana Marcos DO [address] [place] [address] [facility] Start: 09-11-2023 End: 09-11-2023 Patient encounter procedure 09/11/2023 10:20 AM EDT Office Visit [facility] [address] [facility] [place] [address] [place] [address] Gretchen Cabrera, [employer] - 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 [address] [facility] [place] [address] [place] [address] [facility] Start: 09-03-2023 End: 09-03-2023 Patient encounter procedure 09/03/2023 9:30 AM EDT Office Visit [facility] [address] [place] [address] Nona Collins, [employer] - 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 [address] [place] [address] [facility] Start: 08-26-2023 Examination of skin Derm Melanoma Skin Check [facility] Start: 08-21-2023 End: 08-20-2024 CBC W Auto Differential panel - Blood CBC auto differential Lab Routine Anemia, unspecified type Expected: 08/21/2023 (Approximate), Expires: 08/20/2024 [facility] [employer] [facility] Work Phone: Comment on above: Expected: 08/21/2023 (Approximate), Expi res: 08/20/2024 Start: 08-19-2023 End: 08-18-2024 Insert,temp indwelling blad cath,simple Insert,temp indwelling blad cath,simple Procedures Routine Urinary retention Expected: 08/19/2023 (Approximate), Expires: 08/18/2024 [facility] Comment on above: Expected: 08/19/2023 (Approximate), Expi res: 08/18/2024 Start: 08-19-2023 End: 08-18-2024 Irrigation of Bladder Irrigation of Bladder Procedures Routine Encounter for Lopez catheter removal Expected: 08/19/2023 (Approximate), Expires: 08/18/2024 [facility] Work Phone: Comment on above: Expected: 08/19/2023 (Approximate), Expi res: 08/18/2024 Start: 08-19-2023 End: 08-19-2023 Patient encounter procedure 08/19/2023 9:30 AM EDT Office Visit [facility] [address] [place] [address] Danica Chan, [employer] - 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 [address] [place] [address] [facility] Start: 08-13-2023 End: 08-13-2023 Patient encounter procedure 08/13/2023 9:00 AM EDT Office Visit [address] [address] Ta Young MD [address] [place] [phone] [facility] Start: 07-31-2023 End: 07-31-2023 Admission to same day surgery center 07/31/2023 7:30 AM EDT - 07/31/2023 10:30 AM EDT Surgery [facility] [address] [facility] [place] [place] [address] Ta Young MD [address] [place] [address] LUMBAR 2/3/4 LAMINECTOMY, LUMBAR 4-5 FUSION [55388 (CPT )] [facility] Comment on above: LUMBAR 2/3/4 LAMINECTOMY, LUMBAR 4-5 FUS ION [29756 (CPT )] Start: 07-31-2023 End: 07-31-2023 Arthrodesis posterior/posterolateral lumbar POSTERIOR LUMBAR FUSION Spinal stenosis, lumbar region with neurogenic claudication Spondylolisthesis, lumbar region 07/31/2023 7:30 AM EDT [facility] Operating [facility] Start: 07-31-2023 Subsequent hospital visit by physician 07/31/2023 7:30 AM EDT Hospital Encounter [facility] [address] [facility] [place] [address] Ta Young MD [address] [place] [address] [facility] Start: 07-23-2023 End: 07-23-2023 Admission to establishment 07/23/2023 11:00 AM EDT Pre-Admission Testing [facility] Pre-Admit Testing [address] [place] [phone] [facility] Pre[facility]mit Testing Start: 06-18-2023 End: 06-18-2023 Patient encounter procedure 06/18/2023 11:30 AM EST Office Visit [facility] [address] [place] [phone] Ta Young MD [facility] [place] [phone] [facility] Start: 05-27-2023 End: 05-27-2023 Clinical Support 05/27/2023 1:00 PM EST Clinical Support [facility] [address] [place] [address] [facility] Start: 05-20-2023 End: 05-20-2024 Large Joint Injection/Arthrocentesis Large Joint Injection/Arthrocentesi s Procedures Routine Greater trochanteric bursitis of right hip Expected: 05/20/2023 (Approximate), Expires: 05/20/2024 [facility] Work Phone: Comment on above: Expected: 05/20/2023 (Approximate), Expi res: 05/20/2024 Start: 04-21-2023 Medicare Advantage Annual Wellness Visit Medicare Advantage Annual Wellness Visit [facility] Start: 04-18-2023 COVID-19 Vaccine (3 - Booster for Moderna series) COVID-19 Vaccine (3 - Booster for Moderna series) [facility] Comment on above: Postponed from 09/29/2020 (Patient Refus ed) Start: 04-18-2023 Depression Screening Depression Screening [facility] Start: 04-15-2023 End: 04-15-2023 Patient encounter procedure 04/15/2023 10:00 AM EST Office Visit [facility] [address] [facility] [place] [address] Gretchen Tobar, [employer] - 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 [address] [facility] [place] [address] [facility] Start: 04-10-2023 End: 04-10-2024 Comprehensive metabolic 1998 panel - Serum or Plasma Comprehensive metabolic panel Lab Routine Prediabetes Expected: 04/10/2023 (Approximate), Expires: 04/10/2024 [facility] [employer] Work Phone: Comment on above: Expected: 04/10/2023 (Approximate), Expi res: 04/10/2024 Start: 04-10-2023 End: 04-10-2024 Hemoglobin A1c measurement Hemoglobin A1c Lab Routine Prediabetes Expected: 04/10/2023 (Approximate), Expires: 04/10/2024 [facility] [employer] Comment on above: Expected: 04/10/2023 (Approximate), Expi res: 04/10/2024 Start: 04-10-2023 End: 04-10-2024 Lipid 1996 panel - Serum or Plasma Lipid panel Lab Routine Mixed hyperlipidemia Expected: 04/10/2023 (Approximate), Expires: 04/10/2024 [facility] [employer] Comment on above: Expected: 04/10/2023 (Approximate), Expi res: 04/10/2024 Start: 04-10-2023 End: 04-10-2023 Patient encounter procedure [facility] Start: 04-03-2023 End: 04-03-2024 CBC panel - Blood by Automated count CBC Lab Routine Swelling of left lower extremity Expected: 04/03/2023 (Approximate), Expires: 04/03/2024 [facility] [employer] Comment on above: Expected: 04/03/2023 (Approximate), Expi res: 04/03/2024 Start: 04-03-2023 End: 04-03-2024 Natriuretic peptide B [Mass/volume] in Blood NT PRO BNP Lab Routine Swelling of left lower extremity Expected: 04/03/2023 (Approximate), Expires: 04/03/2024 [facility] [employer] Work Phone: Comment on above: Expected: 04/03/2023 (Approximate), Expi res: 04/03/2024 Start: 01-06-2023 End: 01-06-2023 Patient encounter procedure 01/06/2023 9:20 AM EDT Office Visit [facility] [address] [place] [address] [place] [address] Bridenthal Gretchen, [employer] - 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 [address] [place] [address] [place] [address] [facility] Start: 12-20-2022 COVID-19 Vaccine ( season) COVID-19 Vaccine () [facility] Start: 12-20-2022 Influenza vaccination [facility] Start: 12-16-2022 End: 12-16-2022 Patient encounter procedure 12/16/2022 9:20 AM EDT Office Visit [facility] [address] [place] [address] [place] [address] Bridenthal, Gretchen, [employer] - 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 [address] [place] [address] [place] [address] [facility] Start: 11-28-2022 End: 11-28-2022 Patient encounter procedure 11/28/2022 8:00 AM EDT Office Visit [facility] [address] [place] [address] [place] [address] Bridenthal Gretchen, [employer] - 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 [address] [place] [address] [place] [address] [facility] Start: 11-18-2022 End: 11-18-2022 Patient encounter procedure 11/18/2022 11:20 AM EDT Office Visit [facility] [address] [place] [address] [place] [address] Bridenthal, Gretchen, [employer] - 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 [address] [place] [address] [place] [address] [facility] Start: 11-04-2022 End: 11-05-2023 CBC W Auto Differential panel - Blood CBC auto differential Lab Routine Pain and swelling of left lower leg Expected: 11/04/2022 (Approximate), Expires: 11/05/2023 [facility] [employer] Work Phone: Comment on above: Expected: 11/04/2022 (Approximate), Expi res: 11/05/2023 Start: 10-18-2022 End: 10-19-2023 Comprehensive metabolic 1998 panel - Serum or Plasma Comprehensive metabolic panel Lab Routine Prediabetes Expected: 10/18/2022 (Approximate), Expires: 10/19/2023 [facility] [employer] Work Phone: Comment on above: Expected: 10/18/2022 (Approximate), Expi res: 10/19/2023 Start: 10-18-2022 End: 10-19-2023 Hemoglobin A1c/Hemoglobin.total in Blood Hemoglobin A1c Lab Routine Prediabetes Expected: 10/18/2022 (Approximate), Expires: 10/19/2023 [facility] [employer] Comment on above: Expected: 10/18/2022 (Approximate), Expi res: 10/19/2023 Start: 10-18-2022 End: 10-19-2023 Lipid 1996 panel - Serum or Plasma Lipid panel Lab Routine Mixed hyperlipidemia Expected: 10/18/2022 (Approximate), Expires: 10/19/2023 [facility] [employer] Comment on above: Expected: 10/18/2022 (Approximate), Expi res: 10/19/2023 Start: 10-18-2022 End: 10-19-2023 PSA Total PSA Total Lab Routine Elevated PSA, between 10 and less than 20 ng/ml Expected: 10/18/2022 (Approximate), Expires: 10/19/2023 [facility] [employer] Comment on above: Expected: 10/18/2022 (Approximate), Expi res: 10/19/2023 Start: 10-18-2022 End: 10-18-2022 Patient encounter procedure [facility] Start: 02-19-2022 Examination of skin Derm Melanoma Skin Check [facility] Start: 05-20-2020 [facility] Creatinine monitoring Creatinine monitoring [facility] Work Phone: Start: 05-20-2020 Potassium monitoring Potassium monitoring [facility] Work Phone: Start: 04-11-2020 End: 04-11-2020 Office Visit 04/11/2020 Office Visit Family Medicine Hermann Damian MD [address] [place] [address] [phone] [facility] Start: 04-07-2020 Annual Wellness Visit (AWV) Annual Wellness Visit (AWV) [facility] Work Phone: Start: 04-07-2020 Creatinine monitoring Creatinine monitoring [facility] Work Phone: Start: 04-07-2020 Influenza vaccination Flu vaccine (#1) [facility] Work Phone: Comment on above: Postponed from 12/20/2018 (Patient Refus ed) Start: 04-07-2020 Potassium monitoring Potassium monitoring [facility] Work Phone: Start: 04-07-2020 Prostate specific antigen measurement PSA counseling [facility] [employer] Start: 04-06-2020 Annual Wellness Visit (AWV) Annual Wellness Visit (AWV) [facility] Work Phone: Start: 12-21-2019 Influenza vaccination Flu vaccine (#1) [place], [place] Start: 10-07-2019 End: 10-07-2019 Office Visit 10/07/2019 Office Visit Family Medicine Hermann Damian MD [address], [facility] [place] [address] [phone] [facility] Start: 05-28-2019 End: 05-28-2019 Patient encounter procedure 05/28/2019 Appointment General Surgery Angel Solis MD [address] [place] [address] [address] [place] [address] [phone] [facility] Start: 2011 RSV Immunization for Adults (1 - 1-dose 75+ series) RSV Immunization for Adults (1 - 1-dose 75+ series) [employer] Start: 1996 RSV Immunization aged 60 or older (1 - 1-dose 60+ series) RSV Immunization aged 60 or older (1 - 1-dose 60+ series) [employer] Start: 1936 Medicare Advantage Annual Wellness Visit (AWV) Medicare Advantage Annual Wellness Visit (AWV) [employer] Bacteria identified in Urine by Culture Urine culture Microbiology Routine Benign prostatic hyperplasia with urinary retention Ordered: 09/29/2023 [employer] Work Phone: Comment on above: Ordered: 09/29/2023 Bacteria identified in Urine by Culture Urine culture Microbiology STAT 10/03/2023 10:46 AM EDT [employer] Work Phone: End: 01-28-2024 Bacteria identified in Urine by Culture [employer] Work Phone: Comment on above: Once (Lab) for 1 Occurrences starting until 01/28/2024 End: 05-28-2019 Blood glucose - POCT Blood glucose - POCT Point of Care Testing STAT One Time for 1 Occurrences starting 05/28/2019 until 05/28/2019 [employer] Phone: Comment on above: One Time for 1 Occurrences starting 10/2019 until 05/28/2019 End: 05-28-2019 Creatinine [Mass/Vol] Creatinine, serum Lab STAT One Time for 1 Occurrences starting 05/28/2019 until 05/28/2019 [employer] Phone: Comment on above: One Time for 1 Occurrences starting 10/2019 until 05/28/2019 EKG 12 Lead EKG 12 Lead ECG Routine 05/20/2019 10:35 AM EST [employer] Work Phone: Incentive spirometry Incentive s pirometry Respiratory Care Routine Q1H PRN until discontinued starting 05/28/2019 [employer] Phone: Comment on above: Q1H PRN until discontinued starting 10/2019 Initiate Oxygen Ther apy Protocol Initiate Oxygen Therapy Protocol Respiratory Care Routine Daily until discontinued starting 05/28/2019 [employer] Phone: Comment on above: Daily until discontinued starting 2019 OUTSIDE PROCEDURE SCAN OUTSIDE P ROCEDURE SCAN Procedures Ordered: 08/08/2022 [facility] [employer] [facility] Comment on above: Ordered: 08/08/2022 OUTSIDE PROCEDURE SCAN OUTSIDE P ROCEDURE SCAN Procedures Ordered: 11/04/2022 [facility] [employer] [facility] Comment on above: Ordered: 11/04/2022 OUTSIDE PROCEDURE SCAN OUTSIDE P ROCEDURE SCAN Procedures Ordered: 04/03/2023 [facility] [employer] Comment on above: Ordered: 04/03/2023 Phase I & II - meter ed glucose Phase I & II - metered glucose Point of Care Testing Routine As Needed until discontinued starting 05/28/2019 [employer] Work Phone: Comment on above: As Needed until discontinued starting End: 05-28-2019 Potassium w/ Reflex to Magnesium Potassium w/ Reflex to Magnesium Lab Routine One Time for 1 Occurrences starting 05/28/2019 until 05/28/2019 [employer] Work Phone: Comment on above: One Time for 1 Occurrences starting 10/2019 until 05/28/2019 End: 05-28-2019 , urine , urine Lab STAT One Time for 1 Occurrences starting 05/28/2019 until 05/28/2019 [employer] Work Phone: Comment on above: One Time for 1 Occurrences starting 10/2019 until 05/28/2019 End: 05-28-2019 Protime-INR Protime-INR Lab STAT One Time for 1 Occurrences starting 05/28/2019 until 05/28/2019 [employer] Work Phone: Comment on above: One Time for 1 Occurrences starting 10/2019 until 05/28/2019 PSA Total (Screening) PSA Total (Screening) Lab Routine Screening for prostate cancer Ordered: 04/10/2023 [employer] Comment on above: Ordered: 04/10/2023 End: 05-28-2019 Pulse Oximetry Spot Check Pulse Oximetry Spot Check Respiratory Care Routine One Time for 1 Occurrences starting 05/28/2019 until 05/28/2019 [employer] Work Phone: Comment on above: One Time for 1 Occurrences starting 10/2019 until 05/28/2019 Tissue exam [employer] Work Phone: Comment on above: Release Upon Ordering for 1 Occurrences starting 01/05/2024, 1 completed End: 08-08-2022 XR Hip - right 3 Views [facility] [employer] Work Phone: Comment on above: Once for 1 Occurrences starting 08/09/19 until 08/08/2022 End: 10-13-2023 XR Lumbar spine 2 or 3 Views [facility] [employer] [facility] Work Phone: Comment on above: Once for 1 Occurrences starting 10/13/19 until 10/13/2023 Immunizations Immunization Date Immunization Notes Care Provider [facility] 03-20-2021 Influenza, High-dose Seasonal, Quadrivalent, Preservative Free Hermann Damian MD Work Phone: [facility] 03-20-2021 influenza virus vacc ine, unspecified formulation Hermann Damian MD Work Phone: [facility] 04-11-2020 Influenza, High-dose Seasonal, Quadrivalent, Preservative Free Hermann Damian MD Work Phone: [facility] 10-15-2018 zoster vaccine recombinant Angel Solis MD Work Phone: [facility] 08-11-2018 zoster vaccine recombinant Angel Solis MD Work Phone: [facility] 04-06-2018 pneumococcal polysaccharide vaccine, 23 valent Angel Solis MD Work Phone: [facility] 04-06-2018 tetanus toxoid, redu destin diphtheria toxoid, and acellular pertussis vaccine, adsorbed Angel Solis MD Work Phone: [facility] 02-27-2017 pneumococcal conjuga te vaccine, 13 valent Angel Solis MD Work Phone: [facility] 04-18-2008 hepatitis A vaccine, pediatric/adolescent dosage, 2 dose schedule Angel Solis MD Work Phone: [facility] Work Phone: 04-18-2008 hepatitis B vaccine, adult dosage Hermann Damian MD Work Phone: [facility] 04-18-2008 hepatitis B vaccine, unspecified formulation Angel Solis MD Work Phone: [facility] Work Phone: 11-16-2007 hepatitis B vaccine, adult dosage Hermann Damian MD Work Phone: [facility] 11-16-2007 hepatitis B vaccine, unspecified formulation Angel Solis MD Work Phone: [facility] Work Phone: 10-13-2007 hepatitis A vaccine, pediatric/adolescent dosage, 2 dose schedule Angel Solis MD Work Phone: [facility] Work Phone: 10-13-2007 hepatitis B vaccine, adult dosage Hermann Damian MD Work Phone: [facility] 10-13-2007 hepatitis B vaccine, unspecified formulation Angel Solis MD Work Phone: [facility] Work Phone: 10-13-2007 typhoid vaccine, parenteral, other than acetone-killed, dried Hermann Damian MD Work Phone: [facility] 10-13-2007 typhoid capsular polysaccharide vaccine nAgel Solis MD [facility] Phone[facility] Work Phone: 12-21-2002 TD(adult) unspecifie d formulation Angel Solis MD Work Phone: [facility] Work Phone: Payers Date Payer Category Payer Self-pay 2021 Medicare [employer] MEDICA RE [employer] SECURE [id number] 2021-Present [address] [place] [address] Medicare HMO [id number] 2021 Medicare HMO [employer] SECURE [id number] 2014 Medicare [employer]-MEDICA RE ADVANTAGE [employer]ICARE ADVANTAGE xxxxxxxxxxx 2014-Present [phone] [address] [place] [address] xxxxxxxxxxx [id number] 2013 Medicare [id number] Unknown [id number] Social History Date Type Detail Facility Start: 05-20-2019 End: 05-28-2019 Tobacco smoking status IDIS Former smoker [facility] Work Phone: History of tobacco use Cigar Smoker [facility] Work Phone: Start: 05-28-2019 End: 10-13-2024 Alcohol intake Current drinker of alcohol (finding) [facility] Work Phone: Start: 04-07-2019 History SDOH Physical Activity DPW 0 [facility] Work Phone: Start: 04-07-2019 History SDOH Financial 5 [facility] Work Phone: Start: 04-07-2019 History SDOH Food Worry 1 [facility] Work Phone: Start: 04-07-2019 History SDOH Transport Med 2 [facility] Work Phone: Start: 05-20-2019 Alcohol Comment VERY VERY RARE [facility] Work Phone: Start: 1935 Sex Assigned At Not on file [facility] Work Phone: Start: 10-08-2019 Tobacco use and exposure Never used [facility] [place] [place] Start: 05-20-2019 Alcohol Comment [facility] Start: 04-19-2022 End: 05-20-2023 Alcohol intake Lifetime non-drinker (finding) [facility] Start: 07-29-2022 End: 12-16-2022 Exposure to SARS-CoV-2 (event) Not sure [facility] Start: 09-09-2022 End: 06-16-2024 History of Social function [facility] Start: 09-09-2022 End: 06-16-2024 Tobacco use panel [facility] How hard is it for y ou to pay for the very basics like food, housing, medical care, and heating Not hard at all [facility] (I/We) worried kary er (my/our) food would run out before (I/we) got money to buy more. Never true [facility] How hard is it for y ou to pay for the very basics like food, housing, medical care, and heating Not very hard [facility] Start: 07-23-2023 Alcohol Comment 3-4 per year [facility] Has the [employer], or [employer] threatened to shut off services in your home in past 12Mo No [facility] How often to you hav e a drink containing alcohol? Never [facility] Do you belong to any clubs or organizations such as yarsanism groups, unions, fraternal or athletic groups, or school groups? Yes [facility] Are you now , , , , never or living with a partner? [facility] Do you feel stress - tense, restless, nervous, or anxious, or unable to sleep at night because your mind is troubled all the time - these days [OSQ] Not at all [facility] Start: 1935 Sex assigned at Male [facility] Start: 12-18-2023 Gender identity Identifies as male gender (finding) [facility] Start: 12-18-2023 Sexual orientation Heterosexual (finding) [facility] Start: 11-19-2021 Sex Male (finding) [facility] How often to you hav e a drink containing alcohol? Monthly or less [facility] How many standard dr inks containing alcohol do you have on a typical day? 1 or 2 [facility] Medical Equipment Procedure Code Equipment Code Equipment Origin al Text Equipment Identifier Dates Bone Bmp Putty I-Factor 5.0cc - [id number] Start: 07-31-2023 Sub [id number] Graft Dbm Putty Grft - [id number] - [id number] Start: 07-31-2023 Screw Spinal 6.4qcv91na - [id number] Start: 07-31-2023 Screw Spinal 6.6nei97lj - [id number] Start: 07-31-2023 Screw Set Ti Spi nal Break Off - [id number] Start: 07-31-2023 Ed Spnl Cromall oy Bent 5.5x35 - [id number] Start: 07-31-2023 Goals Date Patient Goal Desired Activity /State Personal health goal Comment on above: Formatting of this n ote might be different from the original. The patient will get medication assistance for his Xarelto. Comment on above: Patient would like t o maintain overall health Self- Management Goals: Below is a list of objectives your doctor would like you to consider working on help improve your overall health. Which objectives would you like to work on: Objective: overall health Barriers to success: none Plan for overcoming my barriers: n/a Confidence: moderate in terms of implementation Date goal set: today Patient given educational materials below via AVS. Patient received counseling about current lifestyle goal. Patient was informed that they should never smoke. If they are smoker, the need to work on quitting. Advised Alcohol only in moderation. Advised approximately 150 minutes of cardio, i.e treadmill, exercise in a week. Advised strive for 5 a total 5 servings of fruits and vegetables in a day. Advised a diet lower in carbohydrates and simple sugars. They need to watch consumption of bread, rice, pasta, potatoes, corn, soda, sweetened tea, lemonade, and all other sugar drinks. Patient given after visit summary which includes this educational information Discussed use, benefit, and side effects of prescribed medications and barriers to medication compliance addressed, if applicable. All patient questions answered. Patient was given a copy of this, and was advised to call if any questions. Functional Status Date Assessment Result Facility 09-29-2024 Patient Health Questionnaire 2 item (PHQ- 2) [Reported] [facility] Clinical Notes 05-20-2019 to 10-13-2024 Assessment & Plan Note - KALLIE Carter CNP - 10/13/2024 12:19 PM EDTAssessment & Plan Note - KALLIE Carter CNP - 10/13/2024 12:19 PM EDTPatient Instructions Note Date & Type Note Facility 10-13-2024 Evaluation + Plan note Associated Problem(s): Essential (primary) hypertension Controlled. Blood pressure 139/69. Continue valsartan 40 mg daily [facility] 10-13-2024 Evaluation + Plan note Associated Problem(s): Prediabetes Has been stable. Last hemoglobin A1c Lab Results Component Value Date HGBA1C 6.2 (H) 04/12/2024 Continue low-carb diet, avoid concentrated sweets [facility] 10-13-2024 Miscellaneous Notes Associated Problem(s): Essential (primary) hypertension Controlled. Blood pressure 139/69. Continue valsartan 40 mg daily Associated Problem(s): Prediabetes Has been stable. Last hemoglobin A1c Lab Results Component Value Date HGBA1C 6.2 (H) 04/12/2024 Continue low-carb diet, avoid concentrated sweets Associated Problem(s): Allergic rhinitis Symptoms poorly controlled, continue current medications and follow-up with ENT Associated Problem(s): Constipation Symptoms well-controlled continue increased fiber and senna if needed Associated Problem(s): Hyperlipidemia, unspecified Controlled. Continue rosuvastatin 5 mg daily. Continue low-fat low-cholesterol diet. Associated Problem(s): Chronic rhinitis Continue Nasonex, follow-up with ENT Associated Problem(s): Sinus congestion Continues to have sinus congestion. Continue Nasonex and fexofenadine. Recommend following up with ENT for further evaluation and treatment. 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 Continue Eliquis. Associated Problem(s): OAB (overactive bladder) Stable, continue oxybutynin XL. Advised patient that if he has any difficulty urinating that he should stop the medication as he does have a history of urinary retention Associated Problem(s): Chronic kidney disease, stage 3 unspecified (HCC) Has been stable. Check BMP. documented in this encounter [facility] 10-13-2024 Evaluation + Plan note Associated Problem(s): Allergic rhinitis Symptoms poorly controlled, continue current medications and follow-up with ENT [facility] 10-13-2024 Evaluation + Plan note Associated Problem(s): Constipation Symptoms well-controlled continue increased fiber and senna if needed [facility] 10-13-2024 Evaluation + Plan note Associated Problem(s): Hyperlipidemia, unspecified Controlled. Continue rosuvastatin 5 mg daily. Continue low-fat low-cholesterol diet. [facility] 10-13-2024 Evaluation + Plan note Associated Problem(s): Chronic rhinitis Continue Nasonex, follow-up with ENT [facility] 10-13-2024 Evaluation + Plan note Associated Problem(s): Sinus congestion Continues to have sinus congestion. Continue Nasonex and fexofenadine. Recommend following up with ENT for further evaluation and treatment. [facility] 10-13-2024 Note Continues to have si nus congestion. Continue Nasonex and fexofenadine. Recommend following up with ENT for further evaluation and treatment. 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 Continue Eliquis. [facility] 10-13-2024 Evaluation + Plan note Associated Problem(s): OAB (overactive bladder) Stable, continue oxybutynin XL. Advised patient that if he has any difficulty urinating that he should stop the medication as he does have a history of urinary retention [facility] 10-13-2024 Evaluation + Plan note Associated Problem(s): Chronic kidney disease, stage 3 unspecified (HCC) Has been stable. Check BMP. [facility] 10-13-2024 History of Present illness Narrative Patient was identified by name and Date of . Health Maintenance Due Topic RSV Immunization for Adults-Go to pharmacy Medicare Advantage Annual Wellness Visit-Scheduled 04/18/25 Images from the original note were not included. 10/13/2024 Ciro Sales (: 1935) is a 89 y.o. male , Established patient, here for evaluation of the following chief complaint(s): Medication Check, Med Refill, and Other (Wants refill on oxybutynin-advised patient it may have to come from urology) ASSESSMENT/PLAN: 1. Mixed hyperlipidemia Assessment & Plan: Controlled. Continue rosuvastatin 5 mg daily. Continue low-fat low-cholesterol diet. 2. Stage 3a chronic kidney disease (HCC) Assessment & Plan: Has been stable. Check BMP. Orders: - Basic metabolic panel 3. Other pulmonary embolism without acute cor pulmonale, unspecified chronicity (HCC) Assessment & Plan: Denies any chest pain or shortness of breath. Continue Eliquis. Orders: - rivaroxaban (Xarelto) 20 MG tablet; Take 1 tablet (20 mg) by mouth daily. Take with food., Starting Fri10/13/2024, Normal 4. Sinus congestion Assessment & Plan: Continues to have sinus congestion. Continue Nasonex and fexofenadine. Recommend following up with ENT for further evaluation and treatment. 5. Prediabetes Assessment & Plan: Has been stable. Last hemoglobin A1c Lab Results Component Value Date HGBA1C 6.2 (H) 04/12/2024 Continue low-carb diet, avoid concentrated sweets 6. Allergic rhinitis, unspecified seasonality, unspecified trigger Assessment & Plan: Symptoms poorly controlled, continue current medications and follow-up with ENT 7. Essential hypertension, benign - valsartan (Diovan) 40 MG tablet; Take 1 tablet (40 mg) by mouth daily., Starting Fri10/13/2024, Until 04/11/2025, Normal 8. OAB (overactive bladder) Assessment & Plan: Stable, continue oxybutynin XL. Advised patient that if he has any difficulty urinating that he should stop the medication as he does have a history of urinary retention Orders: - oxybutynin XL (Ditropan-XL) 10 MG 24 hr tablet; Take 1 tablet (10 mg) by mouth daily., Starting Fri10/13/2024, Normal 9. Essential (primary) hypertension Assessment & Plan: Controlled. Blood pressure 139/69. Continue valsartan 40 mg daily 10. Slow transit constipation Assessment & Plan: Symptoms well-controlled continue increased fiber and senna if needed 11. Chronic rhinitis Assessment & Plan: Continue Nasonex, follow-up with ENT Follow up for with primary care provider as scheduled. SUBJECTIVE/OBJECTIVE: HPI - Ciro Sales (: 1935) is a 89 y.o. male , Established patient, here for the evaluation of the following chief complaint(s): Medication Check, Med Refill, and Other (Wants refill on oxybutynin-advised patient it may have to come from urology) Patient presents for med check and to follow-up with sinus congestion and allergic rhinitis. Was seen last week and was changed over from Flonase to Nasonex. He has had a chronic issue with his sinuses and was last seen by ENT last year sometime. Said he had allergy testing done and he was allergic to dust but nothing else. Denies any fever or chills. Thinks that it might be slightly better since last week. Hypertension-is taking the valsartan daily denies any adverse effects of the medication. His blood pressure initially was elevated we will recheck it prior to him leaving today. Hyperlipidemia-is taking rosuvastatin daily, his last lipid panel was good Overactive bladder-is requesting a refill of oxybutynin, reports he has been on this for several years and it helps a lot with his nighttime urination. 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 Reports he has been doing well and feels like he is emptying his bladder fine. 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 Denies any signs or symptoms of bleeding. Current Medications[1] Review of Systems Constitutional: Negative. HENT: Positive for congestion, postnasal drip and sinus pressure. Negative for facial swelling and sinus pain. Respiratory: Negative. Cardiovascular: Negative. Negative for chest pain. Gastrointestinal: Negative. Senna helps Genitourinary: Negative for difficulty urinating. Reports overactive and would like refill of oxybutin Neurological: Positive for tremors (head). Negative for dizziness, light-headedness and headaches. Vitals: 10/13/24 1032 10/13/24 1119 BP: (!) 149/72 139/69 Pulse: 68 59 Resp: 24 Temp: 37.4 C (99.3 F) TempSrc: Infrared SpO2: 91% Weight: 213 lb (96.6 kg) Physical Exam Vitals reviewed. Constitutional: General: He is not in acute distress. Appearance: Normal appearance. He is not ill-appearing. HENT: Head: Normocephalic and atraumatic. Right Ear: Tympanic membrane normal. Left Ear: Tympanic membrane normal. Ears: Comments: Hearing aids Nose: No congestion or rhinorrhea. Comments: No significant nasal edema noted. Mouth/Throat: Mouth: Mucous membranes are moist. Pharynx: Oropharynx is clear. No posterior oropharyngeal erythema. Eyes: Conjunctiva/sclera: Conjunctivae normal. Neck: Vascular: No carotid bruit. Cardiovascular: Rate and Rhythm: Normal rate and regular rhythm. Pulses: Normal pulses. Heart sounds: Normal heart sounds. Pulmonary: Effort: Pulmonary effort is normal. Breath sounds: Normal breath sounds. Abdominal: General: Bowel sounds are normal. Palpations: Abdomen is soft. Tenderness: There is no abdominal tenderness. Musculoskeletal: Right lower leg: No edema. Left lower leg: No edema. Comments: Gait steady, able to get on and off the exam table without difficulty Lymphadenopathy: Cervical: No cervical adenopathy. Neurological: Mental Status: He is alert and oriented to person, place, and time. Comments: Noted head tremor Psychiatric: Mood and Affect: Mood normal. Behavior: Behavior normal. Thought Content: Thought content normal. An electronic signature was used to authenticate this note. Gretchen Cabrera, KALLIE - JERZY 10/13/2024 12:24 PM [1] Current Outpatient Medications Medication Sig Dispense Refill ASCORBIC ACID PO Take 500 mg by mouth before bedtime. Calcium Citrate-Vitamin D (CALCIUM CITRATE + PO) Take 600 mg by mouth before bedtime. CHOLECALCIFEROL PO Take 125 mcg by mouth before bedtime. mometasone (Nasonex) 50 MCG/ACT nasal spray Administer 2 sprays into each nostril daily. 17 g 5 Multiple Vitamins-Minerals (CENTRUM SILVER 50+MEN PO) Take by mouth Nightly. Multiple Vitamins-Minerals (PreserVision AREDS 2) capsule Take by mouth. rosuvastatin (Crestor) 5 MG tablet Take 1 tablet (5 mg) by mouth daily. 30 tablet 0 albuterol (2.5 MG/3ML) 0.083% nebulizer solution Take 3 mL (2.5 mg) by nebulization every 6 hours as needed for wheezing. (Patient not taking: Reported on 10/13/2024) 150 mL 0 ciclopirox (Loprox) 0.77 % cream Apply topically 2 times daily x4 weeks to affected toenails 90 g 0 fexofenadine (Radha) 180 MG tablet Take 1 tablet (180 mg) by mouth Daily as needed (allergies). (Patient not taking: Reported on 10/13/2024) 90 tablet 1 Fluticasone-Salmeterol 500-50 MCG/ACT aerosol powder INHALE 1 DOSE BY MOUTH TWICE DAILY DIRECTED NON FORMULARY 2 times daily as needed. Unk eye drop oxybutynin XL (Ditropan-XL) 10 MG 24 hr tablet Take 1 tablet (10 mg) by mouth daily. 90 tablet 1 polyethylene glycol, PEG, 3350 (MiraLax) 17 GM/SCOOP powder Take 17 g by mouth daily. (Patient not taking: Reported on 10/13/2024) 850 g 3 rivaroxaban (Xarelto) 20 MG tablet Take 1 tablet (20 mg) by mouth daily. Take with food. 90 tablet 1 valsartan (Diovan) 40 MG tablet Take 1 tablet (40 mg) by mouth daily. 90 tablet 1 No current facility-administered medications for this visit. documented in this encounter [facility] 10-13-2024 Instructions KALLIE Carter CNP - 10/13/2024 10:20 AM EDT Please follow up with the ENT for your congestion of your sinuses. documented in this encounter [facility] 10-13-2024 Note Patient was identifi ed by name and Date of . Health Maintenance Due Topic RSV Immunization for Adults-Go to pharmacy Medicare Advantage Annual Wellness Visit-Scheduled 04/18/25 [facility] 09-29-2024 History of Present illness Narrative Images from the original note were not included. 09/29/2024 Ciro Sales (: 1935) is a 89 y.o. male , Established patient, here for evaluation of the following chief complaint(s): Sinusitis (Patient has complaints of sinus pressure, headache, nasal drips that comes and goes. Patient reports he has had these symptoms for the past couple months) I obtained verbal consent from the patient and/or patient s guardian to use ambient listening technology during this encounter before the ambient technology was engaged. Assessment/Plan 1. Allergic rhinitis, unspecified seasonality, unspecified trigger - fexofenadine (Radha) 180 MG tablet; Take 1 tablet (180 mg) by mouth Daily as needed (allergies)., Starting Fri09/29/2024, Normal - mometasone (Nasonex) 50 MCG/ACT nasal spray; Administer 2 sprays into each nostril daily., Starting Fri09/29/2024, Normal - chronic, poorly controlled - Patient experiencing sinus pressure, occasional nasal drainage, and eye irritation - Pale and swollen nasal passages consistent with chronic allergies - Provided reassurance of negative exam findings that would support signs of a bacterial infection - Discontinue current allergy medications - Prescribed Nasonex nasal spray to replace Flonase - Prescribed Radha to replace Loratadine - Follow up with Ashly on 10/13/2024 to assess effectiveness of new regimen I performed the above service AI scribed on my behalf, and I have reviewed and confirmed the accuracy and completeness of the medical documentation. Follow up in 2 weeks (on 10/13/2024) for Next scheduled follow-up. Subjective History of Present Illness Ciro Sales, an 89-year-old male, presents for a same-day appointment with complaints of head pain and sinus pressure that have been ongoing for the past few months. He reports occasional nasal drainage, but not today. He has been using tszy-fig-[id number] mucus relief medication and Flonase nasal spray. The patient mentions feeling drowsy and sleeping a lot. See ROS for additional information. Review of Systems Constitutional: Negative for chills and fever. HENT: Positive for congestion, rhinorrhea, sinus pressure and sinus pain. Negative for ear discharge, ear pain and sore throat. Respiratory: Negative for cough, chest tightness, shortness of breath and wheezing. Cardiovascular: Negative for chest pain. Objective Vitals: 09/29/24 1102 09/29/24 1110 BP: (!) 169/89 139/82 Pulse: 72 SpO2: 95% Weight: 211 lb (95.7 kg) Height: 5' 10 (1.778 m) Body mass index is 30.28 kg/m . Physical Exam Constitutional: General: He is not in acute distress. Appearance: He is not ill-appearing or diaphoretic. HENT: Head: Normocephalic and atraumatic. Right Ear: Tympanic membrane, ear canal and external ear normal. Left Ear: Tympanic membrane, ear canal and external ear normal. Nose: Mucosal edema, congestion and rhinorrhea present. Rhinorrhea is clear. Right Turbinates: Swollen and pale. Left Turbinates: Swollen and pale. Mouth/Throat: Lips: [place]. Mouth: Mucous membranes are moist. Pharynx: Oropharynx is clear. Postnasal drip present. No pharyngeal swelling, oropharyngeal exudate or posterior oropharyngeal erythema. Tonsils: No tonsillar exudate or tonsillar abscesses. Pulmonary: Effort: Pulmonary effort is normal. Breath sounds: Normal breath sounds. Musculoskeletal: Cervical back: Neck supple. Lymphadenopathy: Head: Right side of head: No tonsillar adenopathy. Left side of head: No tonsillar adenopathy. Cervical: No cervical adenopathy. Skin: General: Skin is warm and dry. Coloration: Skin is not pale. Findings: No erythema or rash. Neurological: Mental Status: He is alert and oriented to person, place, and time. Psychiatric: Mood and Affect: Mood normal. Behavior: Behavior normal. Thought Content: Thought content normal. Judgment: Judgment normal. Data Reviewed Results Blood pressure: 139/82 An electronic signature was used to authenticate this note. KALLIE Vallecillo CNP 09/29/2024 11:57 AM documented in this encounter [facility] 09-29-2024 Telephone encounter Note Noted. Will see as scheduled. [facility] 09-29-2024 Miscellaneous Notes Noted. Will see as scheduled. S: Patient spoke with [facility] nurse regarding URI/ sinus infection B: Onset of symptoms/concern, greater than a month Last OV 04/12/25 A: C/O severe headache, eye and facial pressure, and intermittent clear nasal drainage for greater than a monht Denies any fever, chest pain or shortness of breath, or facial redness or swelling. Has not checked for Covid. Using OTC cold, unknown name. R: Appointment scheduled for first available 09/29/24 at 11 am with June Rodriguez CNP. Declined POD or UCC. Insurance verified with patient as [employer]. Advised to wear mask to appointment, arrive 15 mins prior, bring insurance card, ID and copayment. Patient instructed to call back with new or worsening symptoms. Encouraged to hydrate, use saline nasal wash and OTC pain relief. Patient understands care advice. Reason for Disposition Severe headache Protocols used: Sinus Pain or [id number] documented in this encounter [facility] 09-28-2024 Telephone encounter Note S: Patient spoke with [facility] nurse regarding URI/ sinus infection B: Onset of symptoms/concern, greater than a month Last OV 04/12/25 A: C/O severe headache, eye and facial pressure, and intermittent clear nasal drainage for greater than a monht Denies any fever, chest pain or shortness of breath, or facial redness or swelling. Has not checked for Covid. Using OTC cold, unknown name. R: Appointment scheduled for first available 09/29/24 at 11 am with June Rodriguez CNP. Declined POD or UCC. Insurance verified with patient as [employer]. Advised to wear mask to appointment, arrive 15 mins prior, bring insurance card, ID and copayment. Patient instructed to call back with new or worsening symptoms. Encouraged to hydrate, use saline nasal wash and OTC pain relief. Patient understands care advice. Reason for Disposition Severe headache Protocols used: Sinus Pain or [id number] [facility] 09-28-2024 Miscellaneous Notes S: Patient spoke with [facility] nurse regarding URI/ sinus infection B: Onset of symptoms/concern, greater than a month Last OV 04/12/25 A: C/O severe headache, eye and facial pressure, and intermittent clear nasal drainage for greater than a monht Denies any fever, chest pain or shortness of breath, or facial redness or swelling. Has not checked for Covid. Using OTC cold, unknown name. R: Appointment scheduled for first available 09/29/24 at 11 am with June Rodriguez CNP. Declined POD or UCC. [facility]. Advised to wear mask to appointment, arrive 15 mins prior, bring insurance card, ID and copayment. Patient instructed to call back with new or worsening symptoms. Encouraged to hydrate, use saline nasal wash and OTC pain relief. Patient understands care advice. Reason for Disposition Severe headache Protocols used: Sinus Pain or [id number] documented in this encounter [facility] 06-16-2024 Note EMR reviewed. No rec ent office visits since last outreach. PMH: SPINAL STENOSIS, HTN, PE, CKD3, URINARY RETENTION, PREDIABETES, ANEMIA, HYPERLIPIDEMIA The patient is urinating without difficulty. Taking a medication for frequent urination. He can't remember what that medication is called. Doesn't appear to be on his medciation list. He stated the medication is helping. He sees a urologist Dr. Augustine at [facility]. The patient is not monitoring his BP's at home. He is checking his pulse ox daily-94-97% on RA Now taking Pantoprazole for GERD. Stated seems to be helping. He wants to get back to driving. He stated his daughter is going to take him out soon and let him drive to make sure he is safe when driving. The patient denies any current needs. He seems to be doing well. CM will discharge the patient from the [facility] childcare aide mgmt. program at this time due to no more needs that need managed at this time. [facility] 06-01-2024 Note EMR reviewed. No recent office visits since last outreach. PMH: SPINAL STENOSIS, HTN, PE, CKD3, URINARY RETENTION, PREDIABETES, ANEMIA, HYPERLIPIDEMIA ?have Urology appt. ?get medication for frequent urination Outreach attempted. CM left a voicemail message with callback number. Scheduled next outreach. [facility] 05-24-2024 Telephone encounter Note Reviewed chart. Refill appropriate. RX sent. [facility] 05-24-2024 Miscellaneous Notes Reviewed chart. Refill appropriate. RX sent. Ordering provider: Howard Damian Date of last office visit: 04/12/24 Date of next office visit: 10/13/24 Updated/Validated preferred pharmacy: Yes Patient instructed to contact the pharmacy prior to picking up the medication: Yes (1) Medication name: valsartan (Diovan) tablet 40 mg Medication dosage: 40 mg Monthly quantity needed: 30 How many day supply requestin days Medication route: oral (PO) Medication administration time(s): daily If taking medication PRN, reason for taking medication: N/A If this is a controlled substance do you receive this or any other controlled medication from any other doctor or facility: No Date of last refill (see medication tab): 01/06/24 (2) Medication name: pantoprazole (ProtoNix) EC tablet 40 mg Medication dosage: 40 mg Monthly quantity needed: 30 How many day supply requestin days Medication route: oral (PO) Medication administration time(s): daily If taking medication PRN, reason for taking medication: N/A If this is a controlled substance do you receive this or any other controlled medication from any other doctor or facility: No Date of last refill (see medication tab): 01/06/24 I documented in this encounter [facility] 05-24-2024 Telephone encounter Note Ordering provider: Howard Damian Date of last office visit: 04/12/24 Date of next office visit: 10/13/24 Updated/Validated preferred pharmacy: Yes Patient instructed to contact the pharmacy prior to picking up the medication: Yes (1) Medication name: valsartan (Diovan) tablet 40 mg Medication dosage: 40 mg Monthly quantity needed: 30 How many day supply requestin days Medication route: oral (PO) Medication administration time(s): daily If taking medication PRN, reason for taking medication: N/A If this is a controlled substance do you receive this or any other controlled medication from any other doctor or facility: No Date of last refill (see medication tab): 01/06/24 (2) Medication name: pantoprazole (ProtoNix) EC tablet 40 mg Medication dosage: 40 mg Monthly quantity needed: 30 How many day supply requestin days Medication route: oral (PO) Medication administration time(s): daily If taking medication PRN, reason for taking medication: N/A If this is a controlled substance do you receive this or any other controlled medication from any other doctor or facility: No Date of last refill (see medication tab): 01/06/24 I [facility] 04-15-2024 Telephone encounter Note Noted. Agree with disposition. [facility] 04-15-2024 Miscellaneous Notes Noted. Agree with disposition. S: Patient spoke with [facility] nurse regarding constipation B: Onset of symptoms/concern 04/08/24 A: States they have not had regular bowel movement since 04/08/24. States they have had small bowel movements. States they are taking stool softeners daily and have tried Miralax. Denies rectal pain or fullness, denies bloated or distended abdomen, denies abdominal pain, denies nausea or vomiting, denies chest pain or shortness of breath. R: Home care advise to increase hydration with 6-8 cups water per day, add warm prune juice and Milk of Magnesia per package directions. Patient understands care advice. No further needs at this time. Patient instructed to call back with new or worsening symptoms. Reason for Disposition MILD constipation Protocols used: [id number] documented in this encounter [facility] 04-15-2024 Telephone encounter Note S: Patient spoke with [facility] nurse regarding constipation B: Onset of symptoms/concern 04/08/24 A: States they have not had regular bowel movement since 04/08/24. States they have had small bowel movements. States they are taking stool softeners daily and have tried Miralax. Denies rectal pain or fullness, denies bloated or distended abdomen, denies abdominal pain, denies nausea or vomiting, denies chest pain or shortness of breath. R: Home care advise to increase hydration with 6-8 cups water per day, add warm prune juice and Milk of Magnesia per package directions. Patient understands care advice. No further needs at this time. Patient instructed to call back with new or worsening symptoms. Reason for Disposition MILD constipation Protocols used: [id number] [facility] 04-12-2024 Evaluation + Plan note Associated Problem(s): Hyperlipidemia Controlled, off of all of his cholesterol medicine. Continue low-fat low-cholesterol diet. [facility] 04-12-2024 Miscellaneous Notes Associated Problem(s): Hyperlipidemia Controlled, off of all of his cholesterol medicine. Continue low-fat low-cholesterol diet. Associated Problem(s): Prediabetes Stable, will get lab work today Associated Problem(s): Stage 3a chronic kidney disease (HCC) Stable Associated Problem(s): BPH with obstruction/lower urinary tract symptoms Stable, beginning to urinate better he is seeing urology for this. Associated Problem(s): Essential hypertension, benign Controlled, currently off of all of his blood pressure medications. Associated Problem(s): Benign head tremor Stable, he is currently on no medication. 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 [facility] 04-12-2024 Evaluation + Plan note Associated Problem(s): Essential hypertension, benign Controlled, currently off of all of his blood pressure medications. [facility] 04-12-2024 Evaluation + Plan note Associated Problem(s): Benign head tremor Stable, he is currently on no medication. [facility] 04-12-2024 History of Present illness Narrative Patient verified by last name and date of . Images from the original note were not included. She is [facility] - [address] [address] Dept: [phone] Dept Chief Complaint: Ciro Sales is an 89 y.o. male here for an annual wellness visit. Assessment/Plan : Problem List Items Addressed This Visit BPH with obstruction/lower urinary tract symptoms Stable, beginning to urinate better he is seeing urology for this. Stage 3a chronic kidney disease (HCC) Stable Benign head tremor Stable, he is currently on no medication. Essential hypertension, benign Controlled, currently off of all of his blood pressure medications. Hyperlipidemia Controlled, off of all of his cholesterol medicine. Continue low-fat low-cholesterol diet. Relevant Orders Lipid panel Prediabetes Stable, will get lab work today Relevant Orders Comprehensive metabolic panel Hemoglobin A1c Other Visit Diagnoses Routine general medical examination at health care facility - Primary Influenza vaccine refused I have reviewed and reconciled the medication list with the patient today. Current Outpatient Medications Medication Sig Dispense Refill albuterol (2.5 MG/3ML) 0.083% nebulizer solution Take 3 mL (2.5 mg) by nebulization every 6 hours as needed for wheezing. 150 mL 0 ASCORBIC ACID PO Take 500 mg by mouth before bedtime. Calcium Citrate-Vitamin D (CALCIUM CITRATE + PO) Take 600 mg by mouth before bedtime. CHOLECALCIFEROL PO Take 125 mcg by mouth before bedtime. ciclopirox (Loprox) 0.77 % cream Apply topically 2 times daily x4 weeks to affected toenails 90 g 0 ciprofloxacin (Cipro) 500 MG tablet Take 500 mg by mouth 2 times daily. famotidine (Pepcid) 20 MG tablet Take by mouth every evening. fluticasone (Flonase) 50 MCG/ACT nasal spray Administer 2 sprays into each nostril daily. Shake gently. Before first use, prime pump. After use, clean tip and replace cap. 16 g 5 Fluticasone-Salmeterol 500-50 MCG/ACT aerosol powder INHALE 1 DOSE BY MOUTH TWICE DAILY DIRECTED Multiple Vitamins-Minerals (CENTRUM SILVER 50+MEN PO) Take by mouth Nightly. NON FORMULARY 2 times daily as needed. Unk eye drop pantoprazole (ProtoNix) 40 MG EC tablet Take 40 mg by mouth daily. polyethylene glycol, PEG, 3350 (MiraLax) 17 GM/SCOOP powder Take 17 g by mouth daily. 850 g 3 senna-docusate sodium (Senokot-S) 8.6-50 MG tablet Take 1 tablet by mouth Daily as needed for constipation (if no bowel movement in 3 days). 30 tablet 1 rivaroxaban (Xarelto) 20 MG tablet Take 1 tablet (20 mg) by mouth daily. Take with food. 90 tablet 1 valsartan (Diovan) 40 MG tablet Take 1 tablet (40 mg) by mouth daily. 90 tablet 1 No current facility-administered medications for this visit. Also reviewed during this visit: The following health maintenance schedule was reviewed with the patient and provided in printed form in the after visit summary: Health Maintenance Topic Date Due Depression Screening 04/10/2024 RSV Immunization for Adults (1 - 1-dose 75+ series) 04/15/2024 (Originally 2011) Influenza Vaccine (1) 10/18/2024 (Originally 12/21/2023) Derm Melanoma Skin Check 04/12/2025 (Originally 08/26/2023) COVID-19 Vaccine (3 - 2023- season) 2025 (Originally 12/21/2023) DTaP/Tdap/Td Vaccines (2 - Td or Tdap) 04/06/2028 Lipid Panel 04/10/2028 Medicare Advantage Annual Wellness Visit Completed Hepatitis B Vaccines Completed Pneumococcal Vaccine: 50+ Years Completed Zoster Vaccines Completed RSV Immunization under 20 Months Aged Out HIB Vaccines Aged Out IPV Vaccines Aged Out Hepatitis A Vaccines Aged Out Meningococcal Vaccine Aged Out Rotavirus Vaccines Aged Out HPV Vaccines Aged Out List of current healthcare providers: Patient Care Team: Hermann Damian MD as PCP - General Ciro Frausto MD as Surgeon (Urology) Sana Marcos DO as Surgeon (Urology) Dana Plummer, RN as Water Purifier Operator (Rolling Mill Plugger Manager) Orders Placed This Encounter Procedures Lipid panel Standing Status: Future Number of Occurrences: 1 Standing Expiration Date: 04/09/2025 Comprehensive metabolic panel Standing Status: Future Number of Occurrences: 1 Standing Expiration Date: 04/09/2025 Hemoglobin A1c Standing Status: Future Number of Occurrences: 1 Standing Expiration Date: 04/09/2025 Review of Systems Constitutional: Negative for activity change, appetite change, chills, fever and unexpected weight change. HENT: Negative for ear pain and sore throat. Respiratory: Negative for shortness of breath. Cardiovascular: Negative for chest pain and palpitations. Gastrointestinal: Positive for constipation. Negative for abdominal pain, blood in stool and diarrhea. Genitourinary: Negative for dysuria, frequency, hematuria and urgency. Musculoskeletal: Negative for arthralgias and back pain. Skin: Negative. Neurological: Negative for weakness and numbness. Psychiatric/Behavioral: Negative for dysphoric mood. The patient is not nervous/anxious. Physical Exam Vitals and nursing note reviewed. Constitutional: General: He is not in acute distress. Appearance: Normal appearance. HENT: Right Ear: Tympanic membrane, ear canal and external ear normal. Left Ear: Tympanic membrane, ear canal and external ear normal. Mouth/Throat: Mouth: Mucous membranes are moist. Pharynx: Oropharynx is clear. Eyes: Extraocular Movements: Extraocular movements intact. Conjunctiva/sclera: Conjunctivae normal. Pupils: Pupils are equal, round, and reactive to light. Neck: Thyroid: No thyromegaly. Vascular: No carotid bruit. Cardiovascular: Rate and Rhythm: Normal rate and regular rhythm. Heart sounds: Normal heart sounds. No murmur heard. Pulmonary: Effort: Pulmonary effort is normal. Breath sounds: Normal breath sounds. Abdominal: General: Bowel sounds are normal. Palpations: Abdomen is soft. Tenderness: There is no abdominal tenderness. Musculoskeletal: General: Normal range of motion. Cervical back: Neck supple. Lymphadenopathy: Cervical: No cervical adenopathy. Skin: General: Skin is warm and dry. Neurological: General: No focal deficit present. Mental Status: He is alert and oriented to person, place, and time. Psychiatric: Mood and Affect: Mood normal. Objective : BP 135/80 Pulse 94 Ht 5' 10 (1.778 m) Wt 202 lb 3.2 oz (91.7 kg) SpO2 91% BMI 29.01 kg/m No results found. Subjective : Tennille comes in today for his annual Medicare well visit, he is also here for follow-up on a number of health issues 1 is that he has benign head tremor which is stable his chronic kidney disease, hypertension and his blood pressure looks good today. He also has a history of BPH, prediabetes and hyperlipidemia. Health Risk Assessment: General: General In general, how would you say your health is?: Good In the past 7 days, have you experienced any of the following: New or Increased Pain, New or Increased Fatigue, Loneliness, Social Isolation, Stress or Anger?: No Do you get the social and emotional suppport you need?: Yes Interventions: Health Habits/Nutrition: Health Habits / Nutrition On average, how many days per week do you engage in moderate to strenous exercise (like a brisk walk)?: (!) 0 days On average, how man minutes do you engage in exercise at this level?: (!) 0 min Have you lost any weight without trying in the past 3 months? : Yes Have you seen the dentist within the past year?: Yes Interventions: Hearing/ Vision: Hearing / Vision Do you or your family notice any trouble with your hearing that hasn't been managed with hearing aids?: (!) Yes Do you have difficulty driving, watching TV, or doing any of your daily activities because of your eyesight?: (!) Yes Have you had an eye exam within the past year?: Yes No results found. Interventions: Safety: Safety Do you have a working smoke detector?: Yes Do you have any tripping hazards - loose or unsecured carpets or rugs?: (!) Yes Do you have any tripping hazards - clutter in doorways, halls, or stairs?: No Do you have either shower bars, grab bars, non-slip mats or non-slip surfaces in your shower or bathtub? : Yes Do all your stairways have a railing or banister? : Yes Do you fasten your seatbelt when you are in a car?: Yes Interventions: ADL: ADL In the past 7 days, did you need help from others to perform any of the following everyday activities: Eating, dressing, grooming,bathing, toileting, or walking / balance? : No In the past 7 days, did you need help from others to take care of any of the following: laundry, housekeeping, banking / finances,shopping, telephone use, food preparation, transportation, or taking medications? : Yes Select all that apply: Shopping, Transportation Interventions: Living Will: Living Will Do you have a living will?: Yes Cognitive: Cognitive Screening: Mini-Cog Clock Drawing Test (CDT): 2 Words Recalled: 3 Total Score: 5 Total Score Interpretation: Normal Mini-Cog Fall Risk: Fall Risk One or more falls in the last year:: Yes Advised to use a cane or walker to get around safely:: Yes Feels unsteady when walking:: No Steadies self on furniture while walking at home:: Yes Worried about falling:: No Interventions: Depression Screening: Over the past 2 weeks, how often have you been bothered by any of the following problems? Little interest or pleasure in doing things: Several days Feeling down, depressed, or hopeless: Several days Patient Health Questionnaire-2 Score: 2 If you checked off any problems on this questionnaire so far, How difficult have these problems made it for you to do your work, take care of things at home, or get along with other people?: Not difficult at all Interventions: Tobacco Use: Social History Tobacco Use Smoking Status Never Smokeless Tobacco Never Alcohol Use: Audit Alcohol Screening Q1: How often do you have a drink containing alcohol?: Monthly or less Q2: How many drinks containing alcohol do you have on a typical day when you are drinking?: 1 or 2 Q3: How often do you have six or more drinks on one occasion?: Never Audit-C Score: 1 Skip to questions 9-10?: 1 Q10: Has a relative, friend, doctor, or another health professional expressed concern about your drinking or suggested you cut down?: No Social Drivers of Health: SDOH risk assessment performed and documented today by members of the health care team. A total time of 10-15 minutes was spent obtaining information from the patient and discussing options to address the patient's social risk factors and unmet needs. Social Drivers of Health with Concerns Concerns Present Physical Activity: Insufficiently Active (04/10/2023) Unknown Concern Housing Stability: Unknown (01/06/2024) documented in this encounter [facility] [employer] 04-12-2024 Instructions Hermann Damian MD - 04/12/2024 10:30 AM EST Personalized Preventative Plan for Ciro Sales - 04/12/2024 Medicare offers a range of preventative health benefits. Some of the tests and screenings are paid in full while others may be subject to a deductible, co-insurance, and / or copay. Some of these benefits include a comprehensive review of your medical history including lifestyle, illnesses that may run in your family, and various assessments and screenings as appropriate. After reviewing your medical record and screening and assessments performed today, your provider may have ordered immunizations, labs, imaging, and / or referrals for you. A list of these orders (if applicable) as well as your Preventative Care list are included within your After Visit Summary for your review. Other Preventative Recommendations: A preventive eye exam by an weatherization specialist is recommended every 1-2 years to screen for glaucoma, cataracts, macular degeneration, and other eye disorders. A preventive dental visit is recommended every 6 months. Try to get at least 150 minutes of exercise per week or 10,000 steps per day on a pedometer. You need 1200-1500mg of calcium and 2976-5926 international units of vitamin D per day. It is possible to meet your calcium requirement with diet alone, but a vitamin D supplement is usually necessary to meet this goal. When exposed to the sun, use a sunscreen that protects against both UVA and UVB radiation with an SPF of 30 or greater. Reapply every 2-3 hours or after sweating, drying off with a towel, or swimming. Always wear a seat belt when traveling in a car. Always wear a helmet when riding a bicycle or a motorcycle documented in this encounter [facility] 04-12-2024 Telephone encounter Note Prescription Request: Sent to [facility] 04/07/24 90 and 1 refill Call pt and see if he can warp picker there or does he need to have it resent to [facility]? Pt asking for it to be resent to [facility] - called and lm to cancel script at [facility] 04-12-2024 Miscellaneous Notes Prescription Request: Sent to [facility] 04/07/24 90 and 1 refill Call pt and see if he can warp picker there or does he need to have it resent to [facility]? Pt asking for it to be resent to [facility] - called and lm to cancel script at [facility] documented in this encounter [facility] 04-09-2024 Telephone encounter Note Okay, thank you [facility] 04-09-2024 Miscellaneous Notes Okay, thank you S Patient calling urinary issues B Recent surgery discharged yesterday A Spine Surgery [facility] discharged yesterday States he had called Dr Waters - neurology at [phone] but they are closed today. Patient calling with what sounds like bladder spasm. States it feels like muscle spasm in penis. Causing frequency and urgency. Incontinent at night. Some discomfort. No burning. Just pain with spasms. No visible bleeding.. Is asking for rx from Dr Damian for this. Is also asking if pcp has or could request recent blood work from [facility] for upcoming appt Friday. Reports he did have catheter in the hospital R Declines appt today. Has appt with Dr Damian Friday, will discuss then. Advised he could be experiencing irritation for catheter and that he could try OTC to see if it would help with his symptoms. Home care given. Advised calling back if anything changes or worsens. Initially advised trying AZO but then told patient to not take that until he sees pcp due to his kidney function. Patient voiced understanding. Will have pcp address Friday and will call back with concerns. Reason for Disposition Can't control passage of urine (i.e., urinary incontinence) and new-onset (< 2 weeks) or getting worse All other males with painful urination, or patient wants to be seen Protocols used: Urinary [id number], Urination Pain - ADULT-[place] documented in this encounter [facility] [employer] 04-09-2024 Telephone encounter Note S Patient calling urinary issues B Recent surgery discharged yesterday A Spine Surgery [facility] discharged yesterday States he had called Dr Waters - neurology at [phone] but they are closed today. Patient calling with what sounds like bladder spasm. States it feels like muscle spasm in penis. Causing frequency and urgency. Incontinent at night. Some discomfort. No burning. Just pain with spasms. No visible bleeding.. Is asking for rx from Dr Damian for this. Is also asking if pcp has or could request recent blood work from [facility] for upcoming appt Friday. Reports he did have catheter in the hospital R Declines appt today. Has appt with Dr Damian Friday, will discuss then. Advised he could be experiencing irritation for catheter and that he could try OTC to see if it would help with his symptoms. Home care given. Advised calling back if anything changes or worsens. Initially advised trying AZO but then told patient to not take that until he sees pcp due to his kidney function. Patient voiced understanding. Will have pcp address Friday and will call back with concerns. Reason for Disposition Can't control passage of urine (i.e., urinary incontinence) and new-onset (< 2 weeks) or getting worse All other males with painful urination, or patient wants to be seen Protocols used: Urinary [id number], Urination Pain - ADULT-[place] [facility] 04-07-2024 Note [facility] Medical Records Department [address] [place] [address] History Physical Exam 04/07/24714 MR#: [id number] Acct: [id number] Name: CIRO SALES Rep #: [id number] : 1935 89 From: Sina Augustine MD PCP: Dr. Hermann Damian MD Status:[facility] Location: [place] [address] HPI - General General Date of Service: 04/07/24 Chief Complaint: urine retention HPI Narrative CIRO SALES, is a 89 M who presents for a turp for retention of urine, already had a turp at outside hospital and failed but on cysto still has obstructive tissue so going to repeat turp in hopes it will work and pt and void post op, will leave sp in place, pt is will to proceed but knows that surgery may fail and may not be able to void still? [facility] Medical History Wears hearing aid Wears glasses Anemia Excessive bleeding DVT (deep venous thrombosis) Gastric reflux Non-smoker Hypertension Suprapubic catheter Home Medications ???Medication ???Instructions ???Recorded ???Last Taken ???Type ascorbic acid (vitamin C) 500 mg 500 mg PO DAILY 03/24/24 Unknown History tablet (C-500) calcium 315 mg (as 1 tab PO DAILY 03/24/24 Unknown History citrate)-vitamin D3 5 mcg (200 unit) tablet (Calcium Citrate + D) cholecalciferol (vitamin D3) 25 25 mcg PO DAILY 03/24/24 Unknown History mcg (1,000 unit) capsule (Vitamin D3) finasteride 5 mg tablet 5 mg PO DAILY 03/24/24 Unknown History fluticasone 500 mcg-salmeterol 50 1 inh inhalation PRN 03/24/24 Unknown History mcg/dose blistr powdr for inhalation fluticasone propionate 50 2 spray intranasal DAILY 03/24/24 Unknown History mcg/actuation nasal spray,suspension guaifenesin 600 mg tablet, 600 mg PO BID 03/24/24 Unknown History extended release 12 hr (Mucus Relief ER) multivitamin (Daily Multi-Vitamin 1 tab PO DAILY 03/24/24 Unknown History tablet) pantoprazole 40 mg tablet,delayed 40 mg PO DAILY 03/24/24 04/07/24 History release polyethylene glycol 3350 17 17 g PO DAILY PRN constipation 03/24/24 Unknown History gram/dose oral powder rivaroxaban 20 mg tablet (Xarelto) 20 mg PO DAILY 03/24/24 04/02/24 History valsartan 40 mg tablet 40 mg PO DAILY 03/24/24 04/07/24 History vit C 250 mg-vit E 90 mg-zinc 40 1 tab PO BID 03/24/24 Unknown History mg-copper 1 cr-swwoog-mdkjxe capsule (PreserVision AREDS-2) vitamin A 2,400 mcg capsule 2,400 mcg PO DAILY 03/24/24 Unknown History Allergy/AdvReac Type Severity Reaction Status Date / Time hydrocodone Allergy Severe Other Verified 04/07/24 06:34 Surgical History Hx of transurethral resection of prostate History of back surgery Social History Smoking Status: Never smoker Vital Signs Vital Signs Vital Signs: 04/07/24 06:35 04/07/24 06:35 04/07/24 06:55 Temperature 97 F L 97 F L Temperature Source Temporal Pulse Rate 80 80 Respiratory Rate 16 16 Respiratory Pattern Normal Blood Pressure 180/93 H 180/93 H Blood Pressure Mean 122 Blood Pressure Source Monitor Blood Pressure Position Semi-Fowlers Blood Pressure Location Left Arm Pulse Ox 96 96 Oxygen Delivery Method Room Air Weight Weight: 92.079 kg Body Mass Index (BMI) 29.1 Results Lab / Micro Data 04/07/24 06:49 04/07/24 06:49 Labs: Laboratory Results - last 24 hr 04/07/24 06:49: WBC 6.0, RBC 4.59 L, Hgb 12.3 L, Hct 39.4 L, MCV 85.8, MCH 26.8 L, MCHC 31.2 L, RDW Std Deviation 43.8, RDW Coeff of Vikas 14.1, Plt Count 217, MPV 9.8 04/07/24 0717 Cosigner Signature (if applicable): CC: Dr. Hermann Damian MD; Dr. Sina Augustine MD Signed [facility] 2024 History of Present illness Narrative Images from the original note were not included. 2024 Ciro Sales (: 1935) is a 89 y.o. male , Established patient, here for evaluation of the following chief complaint(s): URI (States that his nose has been running like crazy, sneezing, watery eyes. States that he has surgery coming up next Friday and wants to get checked out before then. ) ASSESSMENT/PLAN: 1. Acute maxillary sinusitis, recurrence not specified - amoxicillin-clavulanate (Augmentin) 875-125 MG tablet; Take 1 tablet by mouth 2 times daily for 10 days., Starting 2024, Until Alyce 04/08/2024, Normal - Saline nasal spray for congestion. - Encouraged increasing oral fluids to keep mucous secretions moist. - Sleep with humidified air. - Discussed signs and symptoms warranting follow up in the office- verbalized understanding. Follow up in 2 weeks (on 04/12/2024) for Next scheduled follow-up. SUBJECTIVE/OBJECTIVE: HPI - Ciro presents today with concerns of sinus congestion with pressure and drainage that has been ongoing for the past week or more. Has taken OTC cough/cold medications without much improvement. Has a cough as well- denies shortness of breath or wheezing. Is worried because he is scheduled for surgery on his indwelling urinary catheter in a week or so and wants to make sure he is okay for the surgery. See ROS for additional information. Review of Systems Constitutional: Negative for chills and fever. HENT: Positive for congestion, rhinorrhea, sinus pressure and sinus pain. Negative for ear discharge, ear pain and sore throat. Respiratory: Positive for cough. Negative for chest tightness, shortness of breath and wheezing. Cardiovascular: Negative for chest pain. Vitals: 03/29/24 1400 BP: 132/84 BP Location: Left arm Patient Position: Sitting Pulse: 81 Temp: 36.6 C (97.9 F) SpO2: 94% Weight: 205 lb 3.2 oz (93.1 kg) Height: 5' 10 (1.778 m) Body mass index is 29.44 kg/m . Physical Exam Constitutional: General: He is not in acute distress. Appearance: He is not diaphoretic. HENT: Head: Normocephalic and atraumatic. Right Ear: Tympanic membrane, ear canal and external ear normal. Left Ear: Tympanic membrane, ear canal and external ear normal. Nose: Congestion and rhinorrhea present. Rhinorrhea is purulent. Right Turbinates: Swollen. Left Turbinates: Swollen. Mouth/Throat: Mouth: Mucous membranes are moist. Pharynx: Oropharynx is clear. No oropharyngeal exudate or posterior oropharyngeal erythema. Cardiovascular: Rate and Rhythm: Normal rate and regular rhythm. Heart sounds: Normal heart sounds. No murmur heard. No friction rub. Pulmonary: Effort: Pulmonary effort is normal. Breath sounds: Normal breath sounds. No wheezing, rhonchi or rales. Musculoskeletal: Cervical back: Neck supple. Lymphadenopathy: Cervical: No cervical adenopathy. Skin: General: Skin is warm and dry. Coloration: Skin is not pale. Findings: No erythema. Neurological: Mental Status: He is alert and oriented to person, place, and time. Psychiatric: Mood and Affect: Mood normal. Behavior: Behavior normal. Thought Content: Thought content normal. Judgment: Judgment normal. Data Reviewed Labs: Imaging/Testing: An electronic signature was used to authenticate this note. KALLIE Vallecillo CNP 2024 2:43 PM documented in this encounter [facility] 2024 Telephone encounter Note S: The patient is calling the [facility] about sinus symptoms B: Symptoms have been present for a week A: He has a head fullness and headache with drainage. No dyspnea, wheezing or fever. He is having a prostate surgery next week - he has a temporary indwelling catheter. R: He wants seen today because he is concerned that he be better for this surgery. Appointment made, insurance verified and care advise reviewed. Reason for Disposition Patient wants to be seen Protocols used: Sinus Pain or [id number] [facility] 2024 Miscellaneous Notes S: The patient is calling the [facility] about sinus symptoms B: Symptoms have been present for a week A: He has a head fullness and headache with drainage. No dyspnea, wheezing or fever. He is having a prostate surgery next week - he has a temporary indwelling catheter. R: He wants seen today because he is concerned that he be better for this surgery. Appointment made, insurance verified and care advise reviewed. Reason for Disposition Patient wants to be seen Protocols used: Sinus Pain or [id number] documented in this encounter [facility] 02-16-2024 Note I see Ashly march referral per patient request. [facility] 02-16-2024 Note Tennille is calling back with the doctor's name in [place] where he would like the referral to go to. Dr. Sina Augustine at: [facility] [address] [facility] [address] phone PT did not have a fax number for the doctor. Has an apt next afternoon for a 2nd opinion needs it sent over before then. [facility] 02-12-2024 History of Present illness Narrative Images from the original note were not included. Sana Marcos DO Urology Office Visit Established patient [facility] [address] [facility] [address] Dept: [phone] Dept Loc: [phone] PATIENT NAME: Ciro Sales DATE OF : 1935 REFERRING PROVIDER: No ref. provider found PCP: Hermann Damian MD DATE OF VISIT: 02/12/24 CHIEF COMPLAINT: Chief Complaint Patient presents with Post-op TURP./ Home health nurse think SPT maybe infected Impression: Diagnoses and all orders for this visit: Urinary retention . Plan: 18 [place] SP tube exchanged today, placed to drainage Discussed with patient and his son who is present with him that unfortunately despite TURP he is still unable to void After his void trial in office the bag had to be hooked up to drainage as he could not empty his bladder Continue irrigation as needed for sediment, debris Appears significantly improved today Topical Vaseline or Aquaphor around SP tube, dressing as needed Granulation tissue, healing appropriately and as would be expected no evidence for infection Discussed with patient that at this time I would not recommend he return to driving nor to using his lawnmower Based on his current functional status and also due to having an indwelling catheter with an attached bag I feel this would be a significant hazard to him operating any heavy machinery Discussed this with his son who is present with him today as well Will plan on SP tube changes every 4 to 5 weeks and urology office They will contact office sooner as needed Discontinue finasteride, this is no longer necessary as 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 Sana Marcos DO Reconstructive Urology [facility] Subjective: Mr. Sales is a 88 y.o. male who presents to the office for first SPT change. 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 Fortunately this was benign but was causing mass effect and pushing on her eye. Tennille initially passed his void trial on 926 however it appears that he was unable to void and thus the suprapubic tube was hooked up to a drainage bag. He has had some intermittent issues with it not draining however this was resolved after hand irrigation, removing some debris and sediment Today is his first suprapubic tube exchange There is granulation tissue on the outside of the suprapubic tract, this is to be expected especially at the beginning when he is still healing Explained need for suprapubic tube, while he is very disappointed that he is not able to have the tube removed we did manage to secure it in a different fashion so that he was able to be slightly more mobile I showed his son how to secure it today as well 01/28/24 [facility] ED. SP tube not draining. ED Flushed it. Then drained. Sent home -[facility] 01/15/24 Void trial. Able to void through penis, given cap for SPT as well as additional leg and overnight bags 01/05/24 TURP, SPT 18 fr By Priti 09/03/23 [place] - unable to void. Switched to Alfuzosin due to side effects from tamsulosin 08/18/22 [place] - unable to void. Tamsulosin BID 08/02/23 Consult for retention after spinal surgery on 07/30. > 1 L UOP Known hx of BPH, Elevated PSA Tobacco History reports that he has never smoked. He has never used smokeless tobacco. Review of Systems Review of Systems Constitutional: Positive for activity change and fatigue. HENT: Positive for hearing loss. Genitourinary: Positive for difficulty urinating. Neurological: Positive for tremors, speech difficulty and weakness. Past Medical History: Past Medical History: Diagnosis Date Acute deep vein thrombosis (DVT) of popliteal vein of left lower extremity (HCC) 11/18/2022 11/04/2022. 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/2023 Anemia Arthritis Cancer (CMS/HCC) (HCC) BcC of nose DVT (deep venous thrombosis) ([facility]) LLE GERD (gastroesophageal reflux disease) History of elevated PSA Hyperlipidemia Hypertension Poison gt 11/22/2020 Umbilical hernia without obstruction or gangrene SCHEDULED FOR THE SURGERY ON 05/28 Viral URI with cough 04/11/2022 Past Surgical History: Past Surgical History: Procedure Laterality Date CATARACT EXTRACTION Right COLONOSCOPY HEMORRHOID SURGERY 1999 [facility] HERNIA REPAIR Right inguinal LAMINECTOMY 07/31/2023 L2, L3, L4, L5 laminectomy L4-L5 fusion NOSE SURGERY A KID OTHER SURGICAL HISTORY TURP UMBILICAL HERNIA REPAIR 05/28/2019 Medications Current Outpatient Medications: albuterol (2.5 MG/3ML) 0.083% nebulizer solution, Take 3 mL (2.5 mg) by nebulization every 6 hours as needed for wheezing., Disp: 150 mL, Rfl: 0 ASCORBIC ACID PO, Take 500 mg by mouth before bedtime., Disp: , Rfl: Calcium Citrate-Vitamin D (CALCIUM CITRATE + PO), Take 600 mg by mouth before bedtime., Disp: , Rfl: CHOLECALCIFEROL PO, Take 125 mcg by mouth before bedtime., Disp: , Rfl: ciclopirox (Loprox) 0.77 % cream, Apply topically 2 times daily x4 weeks to affected toenails, Disp: 90 g, Rfl: 0 famotidine (Pepcid) 20 MG tablet, Take by mouth every evening., Disp: , Rfl: fluticasone (Flonase) 50 MCG/ACT nasal spray, Administer 2 sprays into each nostril daily. Shake gently. Before first use, prime pump. After use, clean tip and replace cap., Disp: 16 g, Rfl: 5 Fluticasone-Salmeterol 500-50 MCG/ACT aerosol powder , INHALE 1 DOSE BY MOUTH TWICE DAILY DIRECTED, Disp: , Rfl: Multiple Vitamins-Minerals (CENTRUM SILVER 50+MEN PO), Take by mouth Nightly., Disp: , Rfl: NON FORMULARY, 2 times daily as needed. Unk eye drop, Disp: , Rfl: pantoprazole (ProtoNix) 40 MG EC tablet, Take 40 mg by mouth daily., Disp: , Rfl: polyethylene glycol, PEG, 3350 (MiraLax) 17 GM/SCOOP powder, Take 17 g by mouth daily., Disp: 850 g, Rfl: 3 rivaroxaban (Xarelto) 20 MG tablet, Take 1 tablet (20 mg) by mouth daily. Take with food. Do not start before January 07, 2024., Disp: 90 tablet, Rfl: 1 senna-docusate sodium (Senokot-S) 8.6-50 MG tablet, Take 1 tablet by mouth Daily as needed for constipation (if no bowel movement in 3 days)., Disp: 30 tablet, Rfl: 1 valsartan (Diovan) 40 MG tablet, Take 1 tablet (40 mg) by mouth daily., Disp: 90 tablet, Rfl: 1 Vitals: BP 117/66 (BP Location: Right arm, Patient Position: Sitting, BP Cuff Size: Large adult) Pulse 75 Ht 5' 10 (1.778 m) Wt 204 lb (92.5 kg) BMI 29.27 kg/m Physical Exam Physical Exam Constitutional: Comments: Elderly appearing male Abdominal: General: There is no distension. Palpations: Abdomen is soft. Tenderness: There is no abdominal tenderness. Genitourinary: Comments: Uncircumcised, orthotopic meatus, testicles descended bilaterally. Suprapubic tube in place with clear yellow urine. There is granulation tissue and some slight erythema around this new tract, this is to be expected and a new SP tube. Skin: General: Skin is warm and dry. Coloration: Skin is pale. Neurological: Motor: Weakness present. Coordination: Coordination abnormal. Gait: Gait abnormal. Comments: Noted to have tremors Labs: Lab Results Component Value Date COLORU Yellow 01/28/2024 CLARITYU Extra Turbid (A) 01/28/2024 KETONESU Negative 01/28/2024 PROTUR 200 (A) 01/28/2024 UROBILINOGEN Normal 01/28/2024 HEMOGLOBIN Date Value Ref Range Status 10/13/2023 12.5 (L) 13.2 - 17.1 g/dL Final 08/21/2023 11.3 (L) 13.2 - 17.1 g/dL Final 04/03/2023 14.1 13.2 - 17.1 g/dL Final Hemoglobin Date Value Ref Range Status 01/28/2024 12.5 (L) 13.0 - 18.0 g/dL Final 12/29/2023 12.7 (L) 13.0 - 18.0 g/dL Final 10/04/2023 10.6 (L) 13.0 - 18.0 g/dL Final HEMATOCRIT Date Value Ref Range Status 10/13/2023 39.8 38.5 - 50.0 % Final 08/21/2023 35.7 (L) 38.5 - 50.0 % Final 04/03/2023 41.2 38.5 - 50.0 % Final Hematocrit Date Value Ref Range Status 01/28/2024 38.3 (L) 40.0 - 52.0 % Final 12/29/2023 40.6 40.0 - 52.0 % Final 10/04/2023 33.6 (L) 40.0 - 52.0 % Final PSA Total Date Value Ref Range Status 04/12/2021 10.666 (A) <4.000 ng/mL Final Comment: Testing performed on the [employer] 5600 using an immunometric methodology. Results obtained by different methods should not be used interchangeably. 04/07/2019 12.805 (A) <4.000 ng/mL Final Comment: Testing performed on the [employer] [facility]00 using an immunometric methodology. Results obtained by different methods should not be used interchangeably. Procedure: New 18 [place] suprapubic tube was exchanged today, balloon inflated with 10 cc and placed to drainage documented in this encounter [facility] 02-12-2024 Telephone encounter Note Bella from [facility] called in to let us know she saw the pt today and his spt site is pussy and green, she states that she flushed the cath with no restrictions, but the tubing is gross from nolan, he just got off antibiotics last week from a uti but she suggests an oral antibiotic. She wanted to make sure this was addressed at his appt. [facility] 02-12-2024 Miscellaneous Notes Bella from [facility] called in to let us know she saw the pt today and his spt site is pussy and green, she states that she flushed the cath with no restrictions, but the tubing is gross from nolan, he just got off antibiotics last week from a uti but she suggests an oral antibiotic. She wanted to make sure this was addressed at his appt. documented in this encounter [facility] 02-01-2024 Emergency department Note Patient has a suprapubic lopez catheter in place that has been obstructed due to a UTI. Bladder scan completed for 566 ml. Suprapubic lopez irrigated with 40 ml of sterile NS. Immediate return of 750 ml of yellow cloudy urine. Dr. Knox notified. Yue Chacon RN 02/01/24 1628 [facility] 02-01-2024 Emergency department Note Patient has a suprapubic lopez catheter in place that has been obstructed due to a UTI. Bladder scan completed for 566 ml. Suprapubic lopez irrigated with 40 ml of sterile NS. Immediate return of 750 ml of yellow cloudy urine. Dr. Knox notified. Yue Chacon RN 02/01/24 1628 EMERGENCY DEPARTMENT ENCOUNTER Pt Name: Tennille Sales Birthdate 1935 Date of evaluation: 02/01/2024 ED Provider: Conrad Knox MD CHIEF COMPLAINT Chief Complaint Patient presents with Abdominal Pain HISTORY OF PRESENT ILLNESS (Location/Symptom, Timing/Onset, Context/Setting, Quality, Duration, Modifying Factors, Severity) Note limiting factors. I wore appropriate PPE for the entirety of this encounter. HPI Tennille Sales is a 88 y.o. who presents to the emergency department with chief complaint of suprapubic abdominal pain. Patient has a suprapubic catheter in place. Family states that it does not appear to be draining since around 11 AM. Patient is complaining of a pressure sensation in the suprapubic region. Patient states that he has recently started antibiotics for urinary tract infection. Since starting his catheter has clogged 3 previous times. Suprapubic catheter was just placed approximately 2-3 weeks ago. Nursing Notes were reviewed. Limitations to history: None Outside historians: Family REVIEW OF SYSTEMS Review of Systems All other systems reviewed and are negative. Pertinent positives and negatives as per HPI. PAST MEDICAL HISTORY Past Medical History: Diagnosis Date Acute deep vein thrombosis (DVT) of popliteal vein of left lower extremity (HCC) 11/18/2022 11/04/2022. 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/2023 Anemia Arthritis Cancer (CMS/HCC) (HCC) BcC of nose DVT (deep venous thrombosis) ([facility]) LLE GERD (gastroesophageal reflux disease) History of elevated PSA Hyperlipidemia Hypertension Poison gt 11/22/2020 Umbilical hernia without obstruction or gangrene SCHEDULED FOR THE SURGERY ON 05/28 Viral URI with cough 04/11/2022 SURGICAL HISTORY Past Surgical History: Procedure Laterality Date CATARACT EXTRACTION Right COLONOSCOPY HEMORRHOID SURGERY 1999 [facility] HERNIA REPAIR Right inguinal LAMINECTOMY 07/31/2023 L2, L3, L4, L5 laminectomy L4-L5 fusion NOSE SURGERY A KID OTHER SURGICAL HISTORY TURP UMBILICAL HERNIA REPAIR 05/28/2019 CURRENT MEDICATIONS Previous Medications ALBUTEROL (2.5 MG/3ML) 0.083% NEBULIZER SOLUTION Take 3 mL (2.5 mg) by nebulization every 6 hours as needed for wheezing. ASCORBIC ACID PO Take 500 mg by mouth before bedtime. CALCIUM CITRATE-VITAMIN D (CALCIUM CITRATE + PO) Take 600 mg by mouth before bedtime. CEFUROXIME (CEFTIN) 500 MG TABLET Take 1 tablet (500 mg) by mouth 2 times daily for 7 days. CHOLECALCIFEROL PO Take 125 mcg by mouth before bedtime. CICLOPIROX (LOPROX) 0.77 % CREAM Apply topically 2 times daily x4 weeks to affected toenails FAMOTIDINE (PEPCID) 20 MG TABLET Take by mouth every evening. FINASTERIDE (PROSCAR) 5 MG TABLET Take 1 tablet (5 mg) by mouth daily. Do not crush, chew, or split. FLUTICASONE (FLONASE) 50 MCG/ACT NASAL SPRAY Administer 2 sprays into each nostril daily. Shake gently. Before first use, prime pump. After use, clean tip and replace cap. FLUTICASONE-SALMETEROL 500-50 MCG/ACT AEROSOL POWDER INHALE 1 DOSE BY MOUTH TWICE DAILY DIRECTED GUAIFENESIN (MUCINEX) 600 MG 12 HR TABLET Take 1 tablet (600 mg) by mouth 2 times daily. Do not crush, chew, or split. MULTIPLE VITAMINS-MINERALS (CENTRUM SILVER 50+MEN PO) Take by mouth Nightly. NON FORMULARY 2 times daily as needed. Unk eye drop PANTOPRAZOLE (PROTONIX) 40 MG EC TABLET Take 40 mg by mouth daily. POLYETHYLENE GLYCOL, PEG, 3350 (MIRALAX) 17 GM/SCOOP POWDER Take 17 g by mouth daily. RIVAROXABAN (XARELTO) 20 MG TABLET Take 1 tablet (20 mg) by mouth daily. Take with food. Do not start before January 07, 2024. SENNA-DOCUSATE SODIUM (SENOKOT-S) 8.6-50 MG TABLET Take 1 tablet by mouth Daily as needed for constipation (if no bowel movement in 3 days). VALSARTAN (DIOVAN) 40 MG TABLET Take 1 tablet (40 mg) by mouth daily. ALLERGIES Hydrocodone, Lisinopril, and Seasonal ic [cholestatin] FAMILY HISTORY Family History Problem Relation Name Age of Onset Heart disease Mother Cancer Father SOCIAL HISTORY Social History Socioeconomic History Marital status: Tobacco Use Smoking status: Never Smokeless tobacco: Never Vaping Use Vaping status: Never Used Substance and Sexual Activity Alcohol use: Yes Comment: 3-4 per year Drug use: No Sexual activity: Not Currently Social Determinants of Health Financial Resource Strain: Low Risk (04/10/2023) Overall Financial Resource Strain (CARDIA) Difficulty of Paying Living Expenses: Not very hard Food Insecurity: No Food Insecurity (01/06/2024) Hunger Vital Sign Worried About Running Out of Food in the Last Year: Never true Ran Out of Food in the Last Year: Never true Transportation Needs: No Transportation Needs (01/06/2024) PRAPARE - Transportation Lack of Transportation (Medical): No Lack of Transportation (Non-Medical): No Physical Activity: Insufficiently Active (04/10/2023) Exercise Vital Sign Days of Exercise per Week: 1 day Minutes of Exercise per Session: 20 min Stress: No Stress Concern Present (11/11/2023) [employer] - Occupational Stress Questionnaire Feeling of Stress : Not at all Social Connections: Socially Integrated (11/11/2023) Social Connection and Isolation Panel [NHANES] Frequency of Communication with Friends and Family: More than three times a week Frequency of Social Gatherings with Friends and Family: More than three times a week Attends [employer] Services: More than 4 times per year Active Member of Clubs or Organizations: Yes Attends Club or Organization Meetings: More than 4 times per year Marital Status: Intimate Partner Violence: Not At Risk (01/06/2024) Humiliation, Afraid, Rape, and Kick questionnaire Fear of Current or Ex-Partner: No Emotionally Abused: No Physically Abused: No Sexually Abused: No Housing Stability: Unknown (01/06/2024) Housing Stability Vital Sign Unable to Pay for Housing in the Last Year: No Homeless in the Last Year: No SCREENINGS PHYSICAL EXAM ED Triage Vitals [02/01/24 1602] Temp Heart Rate Resp BP 36.4 C (97.6 F) 96 16 (!) 144/78 SpO2 Temp Source Heart Rate Source Patient Position 98 % Oral Monitor -- BP Location FiO2 (%) -- -- Physical Exam Vitals and nursing note reviewed. Exam conducted with a harbor boat pilot present. Constitutional: General: He is not in acute distress. Appearance: He is well-developed. He is not ill-appearing. Eyes: General: No scleral icterus. Cardiovascular: Rate and Rhythm: Normal rate. Pulmonary: Effort: Pulmonary effort is normal. No respiratory distress. Abdominal: Palpations: Abdomen is soft. Tenderness: There is abdominal tenderness in the suprapubic area. There is no right CVA tenderness, left CVA tenderness, guarding or rebound. Negative signs include Gonzáles's sign, Rovsing's sign and McBurney's sign. Skin: General: Skin is warm and dry. Neurological: Mental Status: He is alert and oriented to person, place, and time. Psychiatric: Behavior: Behavior normal. DIAGNOSTIC RESULTS Procedures/EKG: EKG was reviewed by myself. Physician EKG interpretation can be found in [facility] RADIOLOGY (Per Emergency Physician): Interpretation per the Radiologist below, if available at the time of this note: No orders to display ED BEDSIDE ULTRASOUND: Performed by ED Physician - none LABS: Labs Reviewed - No data to display All other labs were within normal range or not returned as of this dictation. EMERGENCY DEPARTMENT COURSE and DIFFERENTIAL DIAGNOSIS/MDM: Vitals: Vitals: 02/01/24 1602 BP: (!) 144/78 Pulse: 96 Resp: 16 Temp: 36.4 C (97.6 F) TempSrc: Oral SpO2: 98% Weight: 92.5 kg (204 lb) Height: 1.778 m (5' 10) Patient presents emergency department for evaluation of suprapubic pain with likely obstructed suprapubic catheter. Catheter was placed 2-3 weeks ago. Had a chronic indwelling Lopez prior to this. According to the family patient has recently diagnosed with urinary tract infection. He has been passing sediment and has had suprapubic catheter clogged a few times over the last week. Catheter was easily flushed by the RN here in the ED with immediate drainage of proxy 1 L of urine. Output continues. I offered BMP for evaluation for possible kidney injury however patient and family declined. It appears as though catheter was only clogged for approximately 5 hours and therefore low suspicion for kidney injury other acute abnormality. Patient plans on calling his urologist who placed the suprapubic catheter first thing in the morning to schedule appropriate follow-up and recommendations. Return precautions were discussed and questions answered at the bedside prior to discharge. Diagnoses as of 02/01/24 1629 Suprapubic catheter dysfunction, initial encounter ([facility]) Medications - No data to display REVAL: CRITICAL CARE TIME None CONSULTS: None PROCEDURES: Unless otherwise noted below, none Procedures Patients symptoms are consistent with sepsis, severe sepsis, or septic shock (If yes use .sepsiscoremeasure): No FINAL IMPRESSION 1. Suprapubic catheter dysfunction, initial encounter ([facility]) DISPOSITION Discharge 02/01/2024 04:29:16 PM PATIENT REFERRED TO: Sana Marcos DO [address] [facility] [address] Call in 1 day [facility] ED [address] [facility] [id number] If the catheter becomes obstructed again. DISCHARGE MEDICATIONS: New Prescriptions No medications on file (Comment: Please note this report has been produced using speech recognition software and may contain errors related to that system including errors in grammar, punctuation, and spelling, as well as words and phrases that may be inappropriate. If there are any questions or concerns please feel free to contact the dictating provider for clarification.) Conrda Knox MD (electronically signed) Emergency Medicine Provider Conrad Knox MD 02/01/24 1631 Patient to room 7 with c/o lower abdominal pressure. Patient has a supra pubic lopez catheter, that has been blocked in past visits. Patient is taking an antibiotic for a UTI. V/S obtained, call light within reach. documented in this encounter [facility] 02-01-2024 Emergency department Triage note Patient to room 7 with c/o lower abdominal pressure. Patient has a supra pubic lopez catheter, that has been blocked in past visits. Patient is taking an antibiotic for a UTI. V/S obtained, call light within reach. [facility] 02-01-2024 Physician Emergency department Note EMERGENCY DEPARTMENT ENCOUNTER Pt Name: Tennille Sales Birthdate 1935 Date of evaluation: 02/01/2024 ED Provider: Conrad Knox MD CHIEF COMPLAINT Chief Complaint Patient presents with Abdominal Pain HISTORY OF PRESENT ILLNESS (Location/Symptom, Timing/Onset, Context/Setting, Quality, Duration, Modifying Factors, Severity) Note limiting factors. I wore appropriate PPE for the entirety of this encounter. HPI Tennille Sales is a 88 y.o. who presents to the emergency department with chief complaint of suprapubic abdominal pain. Patient has a suprapubic catheter in place. Family states that it does not appear to be draining since around 11 AM. Patient is complaining of a pressure sensation in the suprapubic region. Patient states that he has recently started antibiotics for urinary tract infection. Since starting his catheter has clogged 3 previous times. Suprapubic catheter was just placed approximately 2-3 weeks ago. Nursing Notes were reviewed. Limitations to history: None Outside historians: Family REVIEW OF SYSTEMS Review of Systems All other systems reviewed and are negative. Pertinent positives and negatives as per HPI. PAST MEDICAL HISTORY Past Medical History: Diagnosis Date Acute deep vein thrombosis (DVT) of popliteal vein of left lower extremity (HCC) 11/18/2022 11/04/2022. 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 ([facility]) 04/21/2023 Anemia Arthritis Cancer (CMS/HCC) (HCC) BcC of nose DVT (deep venous thrombosis) ([facility]) LLE GERD (gastroesophageal reflux disease) History of elevated PSA Hyperlipidemia Hypertension Poison gt 11/22/2020 Umbilical hernia without obstruction or gangrene SCHEDULED FOR THE SURGERY ON 05/28 Viral URI with cough 04/11/2022 SURGICAL HISTORY Past Surgical History: Procedure Laterality Date CATARACT EXTRACTION Right COLONOSCOPY HEMORRHOID SURGERY 1999 [facility] HERNIA REPAIR Right inguinal LAMINECTOMY 07/31/2023 L2, L3, L4, L5 laminectomy L4-L5 fusion NOSE SURGERY A KID OTHER SURGICAL HISTORY TURP UMBILICAL HERNIA REPAIR 05/28/2019 CURRENT MEDICATIONS Previous Medications ALBUTEROL (2.5 MG/3ML) 0.083% NEBULIZER SOLUTION Take 3 mL (2.5 mg) by nebulization every 6 hours as needed for wheezing. ASCORBIC ACID PO Take 500 mg by mouth before bedtime. CALCIUM CITRATE-VITAMIN D (CALCIUM CITRATE + PO) Take 600 mg by mouth before bedtime. CEFUROXIME (CEFTIN) 500 MG TABLET Take 1 tablet (500 mg) by mouth 2 times daily for 7 days. CHOLECALCIFEROL PO Take 125 mcg by mouth before bedtime. CICLOPIROX (LOPROX) 0.77 % CREAM Apply topically 2 times daily x4 weeks to affected toenails FAMOTIDINE (PEPCID) 20 MG TABLET Take by mouth every evening. FINASTERIDE (PROSCAR) 5 MG TABLET Take 1 tablet (5 mg) by mouth daily. Do not crush, chew, or split. FLUTICASONE (FLONASE) 50 MCG/ACT NASAL SPRAY Administer 2 sprays into each nostril daily. Shake gently. Before first use, prime pump. After use, clean tip and replace cap. FLUTICASONE-SALMETEROL 500-50 MCG/ACT AEROSOL POWDER INHALE 1 DOSE BY MOUTH TWICE DAILY DIRECTED GUAIFENESIN (MUCINEX) 600 MG 12 HR TABLET Take 1 tablet (600 mg) by mouth 2 times daily. Do not crush, chew, or split. MULTIPLE VITAMINS-MINERALS (CENTRUM SILVER 50+MEN PO) Take by mouth Nightly. NON FORMULARY 2 times daily as needed. Unk eye drop PANTOPRAZOLE (PROTONIX) 40 MG EC TABLET Take 40 mg by mouth daily. POLYETHYLENE GLYCOL, PEG, 3350 (MIRALAX) 17 GM/SCOOP POWDER Take 17 g by mouth daily. RIVAROXABAN (XARELTO) 20 MG TABLET Take 1 tablet (20 mg) by mouth daily. Take with food. Do not start before January 07, 2024. SENNA-DOCUSATE SODIUM (SENOKOT-S) 8.6-50 MG TABLET Take 1 tablet by mouth Daily as needed for constipation (if no bowel movement in 3 days). VALSARTAN (DIOVAN) 40 MG TABLET Take 1 tablet (40 mg) by mouth daily. ALLERGIES Hydrocodone, Lisinopril, and Seasonal ic [cholestatin] FAMILY HISTORY Family History Problem Relation Name Age of Onset Heart disease Mother Cancer Father SOCIAL HISTORY Social History Socioeconomic History Marital status: Tobacco Use Smoking status: Never Smokeless tobacco: Never Vaping Use Vaping status: Never Used Substance and Sexual Activity Alcohol use: Yes Comment: 3-4 per year Drug use: No Sexual activity: Not Currently Social Determinants of Health Financial Resource Strain: Low Risk (04/10/2023) Overall Financial Resource Strain (CARDIA) Difficulty of Paying Living Expenses: Not very hard Food Insecurity: No Food Insecurity (01/06/2024) Hunger Vital Sign Worried About Running Out of Food in the Last Year: Never true Ran Out of Food in the Last Year: Never true Transportation Needs: No Transportation Needs (01/06/2024) PRAPARE - Transportation Lack of Transportation (Medical): No Lack of Transportation (Non-Medical): No Physical Activity: Insufficiently Active (04/10/2023) Exercise Vital Sign Days of Exercise per Week: 1 day Minutes of Exercise per Session: 20 min Stress: No Stress Concern Present (11/11/2023) [employer] - Occupational Stress Questionnaire Feeling of Stress : Not at all Social Connections: Socially Integrated (11/11/2023) Social Connection and Isolation Panel [NHANES] Frequency of Communication with Friends and Family: More than three times a week Frequency of Social Gatherings with Friends and Family: More than three times a week Attends [employer] Services: More than 4 times per year Active Member of Clubs or Organizations: Yes Attends Club or Organization Meetings: More than 4 times per year Marital Status: Intimate Partner Violence: Not At Risk (01/06/2024) Humiliation, Afraid, Rape, and Kick questionnaire Fear of Current or Ex-Partner: No Emotionally Abused: No Physically Abused: No Sexually Abused: No Housing Stability: Unknown (01/06/2024) Housing Stability Vital Sign Unable to Pay for Housing in the Last Year: No Homeless in the Last Year: No SCREENINGS PHYSICAL EXAM ED Triage Vitals [02/01/24 1602] Temp Heart Rate Resp BP 36.4 C (97.6 F) 96 16 (!) 144/78 SpO2 Temp Source Heart Rate Source Patient Position 98 % Oral Monitor -- BP Location FiO2 (%) -- -- Physical Exam Vitals and nursing note reviewed. Exam conducted with a harbor boat pilot present. Constitutional: General: He is not in acute distress. Appearance: He is well-developed. He is not ill-appearing. Eyes: General: No scleral icterus. Cardiovascular: Rate and Rhythm: Normal rate. Pulmonary: Effort: Pulmonary effort is normal. No respiratory distress. Abdominal: Palpations: Abdomen is soft. Tenderness: There is abdominal tenderness in the suprapubic area. There is no right CVA tenderness, left CVA tenderness, guarding or rebound. Negative signs include Gonzáles's sign, Rovsing's sign and McBurney's sign. Skin: General: Skin is warm and dry. Neurological: Mental Status: He is alert and oriented to person, place, and time. Psychiatric: Behavior: Behavior normal. DIAGNOSTIC RESULTS Procedures/EKG: EKG was reviewed by myself. Physician EKG interpretation can be found in [facility] RADIOLOGY (Per Emergency Physician): Interpretation per the Radiologist below, if available at the time of this note: No orders to display ED BEDSIDE ULTRASOUND: Performed by ED Physician - none LABS: Labs Reviewed - No data to display All other labs were within normal range or not returned as of this dictation. EMERGENCY DEPARTMENT COURSE and DIFFERENTIAL DIAGNOSIS/MDM: Vitals: Vitals: 02/01/24 1602 BP: (!) 144/78 Pulse: 96 Resp: 16 Temp: 36.4 C (97.6 F) TempSrc: Oral SpO2: 98% Weight: 92.5 kg (204 lb) Height: 1.778 m (5' 10) Patient presents emergency department for evaluation of suprapubic pain with likely obstructed suprapubic catheter. Catheter was placed 2-3 weeks ago. Had a chronic indwelling Lopez prior to this. According to the family patient has recently diagnosed with urinary tract infection. He has been passing sediment and has had suprapubic catheter clogged a few times over the last week. Catheter was easily flushed by the RN here in the ED with immediate drainage of proxy 1 L of urine. Output continues. I offered BMP for evaluation for possible kidney injury however patient and family declined. It appears as though catheter was only clogged for approximately 5 hours and therefore low suspicion for kidney injury other acute abnormality. Patient plans on calling his urologist who placed the suprapubic catheter first thing in the morning to schedule appropriate follow-up and recommendations. Return precautions were discussed and questions answered at the bedside prior to discharge. Diagnoses as of 02/01/24 1629 Suprapubic catheter dysfunction, initial encounter ([facility]) Medications - No data to display REVAL: CRITICAL CARE TIME None CONSULTS: None PROCEDURES: Unless otherwise noted below, none Procedures Patients symptoms are consistent with sepsis, severe sepsis, or septic shock (If yes use .sepsiscoremeasure): No FINAL IMPRESSION 1. Suprapubic catheter dysfunction, initial encounter ([facility]) DISPOSITION Discharge 02/01/2024 04:29:16 PM PATIENT REFERRED TO: Sana Marcos DO [address] [facility] [address] Call in 1 day [facility] ED [address] [facility] [phone] If the catheter becomes obstructed again. DISCHARGE MEDICATIONS: New Prescriptions No medications on file (Comment: Please note this report has been produced using speech recognition software and may contain errors related to that system including errors in grammar, punctuation, and spelling, as well as words and phrases that may be inappropriate. If there are any questions or concerns please feel free to contact the dictating provider for clarification.) Conrad Knox MD (electronically signed) Emergency Medicine Provider Conrad Knox MD 02/01/24 1631 [facility] 01-30-2024 Hospital Discharge instructions Alberto Angeles DO - 01/30/2024 11:26 PM EDT Drink plenty of fluids and take all of your antibiotics as prescribed. Please call urology for follow-up visit. documented in this encounter [facility] 01-30-2024 Emergency department Note Pt's catheter flushed, large chunk of settlement came out along with 700cc of urine. Pt reports relief. DO Yessenia at bedside. Harriet Gutiérrez RN 01/30/24 5934 Harriet Gutiérrez RN 01/30/24 3352 [facility] 01-30-2024 Emergency department Note Pt's catheter flushed, large chunk of settlement came out along with 700cc of urine. Pt reports relief. DO Angeles at bedside. Harriet Gutiérrez RN 01/30/242323 Harriet Gutiérrez RN 01/30/242324 Lopez cath bag last drained at 1999. Harriet Gutiérrez RN 01/30/242299 EMERGENCY DEPARTMENT ENCOUNTER Pt Name: Ciro Sales Birthdate 1935 Date of evaluation: 01/30/2024 ED Provider: Alberto Angeles DO CHIEF COMPLAINT Chief Complaint Patient presents with Urinary Catheter Problem Pt here for third night in a row for catheter to be flushed. Pt has had to have pain medications and catheter flushed for it to drain. Pt reports he has settlement in his catheter clogging it due to a UTI. Pt has suprapubic catheter and has a urologist who he called today. HISTORY OF PRESENT ILLNESS (Location/Symptom, Timing/Onset, Context/Setting, Quality, Duration, Modifying Factors, Severity) Note limiting factors. I wore appropriate PPE for the entirety of this encounter. HPI Ciro Sales is a 88 y.o. male who presents to the emergency department with lower abdominal pain and decreased output from his suprapubic catheter. Patient has been in the emergency room the past 3 nights for the same complaint. Found to have a UTI 2 nights ago which led to increased sediment buildup which clog the catheter. Last night it was flushed and draining. Today when he was going to bed he noticed mild increased pain and decreased output. Pain is now moderate to severe in the suprapubic region. No fevers or chills. Nursing Notes were reviewed. REVIEW OF SYSTEMS 14 systems reviewed and otherwise acutely negative except as in the [place]. PAST MEDICAL HISTORY Past Medical History: Diagnosis Date Acute deep vein thrombosis (DVT) of popliteal vein of left lower extremity (HCC) 11/18/2022 11/04/2022. 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/2023 Anemia Arthritis Cancer (CMS/HCC) (HCC) BcC of nose DVT (deep venous thrombosis) (HCC) LLE GERD (gastroesophageal reflux disease) History of elevated PSA Hyperlipidemia Hypertension Poison gt 11/22/2020 Umbilical hernia without obstruction or gangrene SCHEDULED FOR THE SURGERY ON 05/28 Viral URI with cough 04/11/2022 SURGICAL HISTORY Past Surgical History: Procedure Laterality Date CATARACT EXTRACTION Right COLONOSCOPY HEMORRHOID SURGERY 1999 [facility] HERNIA REPAIR Right inguinal LAMINECTOMY 07/31/2023 L2, L3, L4, L5 laminectomy L4-L5 fusion NOSE SURGERY A KID OTHER SURGICAL HISTORY TURP UMBILICAL HERNIA REPAIR 05/28/2019 CURRENT MEDICATIONS Discharge Medication List as of 01/30/2024 11:26 PM CONTINUE these medications which have NOT CHANGED Details albuterol (2.5 MG/3ML) 0.083% nebulizer solution Take 3 mL (2.5 mg) by nebulization every 6 hours as needed for wheezing., Starting Fri01/13/2024, Print ASCORBIC ACID PO Take 500 mg by mouth before bedtime., Historical Med Calcium Citrate-Vitamin D (CALCIUM CITRATE + PO) Take 600 mg by mouth before bedtime., Historical Med cefuroxime (Ceftin) 500 MG tablet Take 1 tablet (500 mg) by mouth 2 times daily for 7 days., Starting Fri01/28/2024, Until Fri02/04/2024, Normal CHOLECALCIFEROL PO Take 125 mcg by mouth before bedtime., Historical Med ciclopirox (Loprox) 0.77 % cream Apply topically 2 times daily x4 weeks to affected toenails, Normal famotidine (Pepcid) 20 MG tablet Take by mouth every evening., Historical Med finasteride (Proscar) 5 MG tablet Take 1 tablet (5 mg) by mouth daily. Do not crush, chew, or split., Starting Fri12/16/2023, Until Fri12/15/2024, Normal fluticasone (Flonase) 50 MCG/ACT nasal spray Administer 2 sprays into each nostril daily. Shake gently. Before first use, prime pump. After use, clean tip and replace cap., Starting Fri09/11/2023, Until Fri09/10/2024, Normal Fluticasone-Salmeterol 500-50 MCG/ACT aerosol powder INHALE 1 DOSE BY MOUTH TWICE DAILY DIRECTED, Historical Med guaiFENesin (Mucinex) 600 MG 12 hr tablet Take 1 tablet (600 mg) by mouth 2 times daily. Do not crush, chew, or split., Starting Fri10/13/2023, Until Fri02/10/2024, Normal Multiple Vitamins-Minerals (CENTRUM SILVER 50+MEN PO) Take by mouth Nightly., Historical Med NON FORMULARY 2 times daily as needed. Unk eye drop, Historical Med pantoprazole (ProtoNix) 40 MG EC tablet Take 40 mg by mouth daily., Starting Fri11/27/2023, Historical Med polyethylene glycol, PEG, 3350 (MiraLax) 17 GM/SCOOP powder Take 17 g by mouth daily., Starting Fri12/16/2023, Until Fri12/15/2024, Normal rivaroxaban (Xarelto) 20 MG tablet Take 1 tablet (20 mg) by mouth daily. Take with food. Do not start before January 07, 2024., Starting Fri01/07/2024, Normal senna-docusate sodium (Senokot-S) 8.6-50 MG tablet Take 1 tablet by mouth Daily as needed for constipation (if no bowel movement in 3 days)., Starting Fri09/29/2023, Until Fri09/28/2024 at 2359, Normal valsartan (Diovan) 40 MG tablet Take 1 tablet (40 mg) by mouth daily., Starting Fri10/13/2023, Until Fri04/10/2024, Normal ALLERGIES Hydrocodone, Lisinopril, and Seasonal ic [cholestatin] FAMILY HISTORY Family History Problem Relation Name Age of Onset Heart disease Mother Cancer Father SOCIAL HISTORY Social History Socioeconomic History Marital status: Tobacco Use Smoking status: Never Smokeless tobacco: Never Vaping Use Vaping status: Never Used Substance and Sexual Activity Alcohol use: Yes Comment: 3-4 per year Drug use: No Sexual activity: Not Currently Social Determinants of Health Financial Resource Strain: Low Risk (04/10/2023) Overall Financial Resource Strain (CARDIA) Difficulty of Paying Living Expenses: Not very hard Food Insecurity: No Food Insecurity (01/06/2024) Hunger Vital Sign Worried About Running Out of Food in the Last Year: Never true Ran Out of Food in the Last Year: Never true Transportation Needs: No Transportation Needs (01/06/2024) PRAPARE - Transportation Lack of Transportation (Medical): No Lack of Transportation (Non-Medical): No Physical Activity: Insufficiently Active (04/10/2023) Exercise Vital Sign Days of Exercise per Week: 1 day Minutes of Exercise per Session: 20 min Stress: No Stress Concern Present (11/11/2023) [employer] - Occupational Stress Questionnaire Feeling of Stress : Not at all Social Connections: Socially Integrated (11/11/2023) Social Connection and Isolation Panel [NHANES] Frequency of Communication with Friends and Family: More than three times a week Frequency of Social Gatherings with Friends and Family: More than three times a week Attends [employer] Services: More than 4 times per year Active Member of Clubs or Organizations: Yes Attends Club or Organization Meetings: More than 4 times per year Marital Status: Intimate Partner Violence: Not At Risk (01/06/2024) Humiliation, Afraid, Rape, and Kick questionnaire Fear of Current or Ex-Partner: No Emotionally Abused: No Physically Abused: No Sexually Abused: No Housing Stability: Unknown (01/06/2024) Housing Stability Vital Sign Unable to Pay for Housing in the Last Year: No Homeless in the Last Year: No SCREENINGS PHYSICAL EXAM ED Triage Vitals [01/30/24 2254] Temp Heart Rate Resp BP 36.4 C (97.6 F) 87 16 (!) 168/87 SpO2 Temp Source Heart Rate Source Patient Position 95 % Oral Monitor -- BP Location FiO2 (%) -- -- CONSTITUTIONAL: AOx4, no apparent distress, appears stated age HEAD: normocephalic, atraumatic EYES: PERRL, EOMI ENT: moist mucous membranes, uvula midline NECK: supple, symmetric BACK: symmetric LUNGS: clear to auscultation bilaterally CARDIOVASCULAR: regular rate and rhythm ABDOMEN: soft, mild to moderate suprapubic tenderness,, non-distended with normal active bowel sounds, suprapubic catheter site appears clean dry and intact. : deferred NEUROLOGIC: MAEx4, no focal sensory or motor deficits MUSCULOSKELETAL: no clubbing, cyanosis or edema SKIN: no exposed rash DIAGNOSTIC RESULTS Procedures/EKG: EKG was reviewed by myself. Physician EKG interpretation can be found in [facility] RADIOLOGY (Per Emergency Physician): Interpretation per the Radiologist below, if available at the time of this note: No orders to display ED BEDSIDE ULTRASOUND: Performed by ED Physician - none LABS: Labs Reviewed - No data to display All other labs were within normal range or not returned as of this dictation. EMERGENCY DEPARTMENT COURSE and DIFFERENTIAL DIAGNOSIS/MDM: Vitals: Vitals: 01/30/24225301/30/24225501/30/24 2335 BP: (!) 168/87 119/75 Pulse: 87 Resp: 16 Temp: 36.4 C (97.6 F) TempSrc: Oral SpO2: 95% 95% Weight: 92.5 kg (204 lb) Height: 1.778 m (5' 10) EMERGENCY DEPARTMENT COURSE and DIFFERENTIAL DIAGNOSIS/MDM: Vitals: Vitals: 01/30/24225301/30/24225501/30/242334 BP: (!) 168/87 119/75 Pulse: 87 Resp: 16 Temp: 36.4 C (97.6 F) TempSrc: Oral SpO2: 95% 95% Weight: 92.5 kg (204 lb) Height: 1.778 m (5' 10) The patient presented with a chief complaint of decreased urinary output from his Lopez catheter and increased abdominal pain. The differential diagnosis associated with this patient's presentation includes obstruction due to sediment, UTI, bleeding. Our workup consisted of ordering/reviewing catheter easily flushed by nurse, large piece of obstructing sediment was removed and patient then freely drained 750 mL of clear yellow urine. Patient called his urologist today who recommended increasing his p.o. intake and outpatient follow-up. I also reiterated this with the patient and his family today. Stable vital signs, symptoms resolved. No indication for repeat urinalysis or blood work. Patient family agreeable with plan. All questions answered. Okay to be discharged. Diagnoses as of 01/31/24 0133 Suprapubic catheter dysfunction, subsequent encounter Diagnostic tests considered but not performed: Consider BMP and urinalysis however has only been instructed for few hours so doubt RICHARD, no UTI on antibiotics External records reviewed: Inpatient notes urology note reviewed from 01/05/2024 the patient had TURP and insertion of suprapubic catheter Diagnostics interpreted by me: Discussions with other clinicians: Chronic conditions impacting care: Social determinants of health affecting care: ED Medications managed: Medications oxyCODONE (Roxicodone) immediate release tablet 10 mg (10 mg Oral Given 01/30/242306) CONSULTS: None PROCEDURES: Unless otherwise noted below, none Procedures Patients symptoms are consistent with sepsis, severe sepsis, or septic shock (If yes use .sepsiscoremeasure): FINAL IMPRESSION 1. Suprapubic catheter dysfunction, subsequent encounter DISPOSITION/PLAN dc PATIENT REFERRED TO: Hermann Damian MD [address] [place] [address], [address] [facility] [phone] DISCHARGE MEDICATIONS: Discharge Medication List as of 01/30/2024 11:26 PM (Comment: Please note this report has been produced using speech recognition software and may contain errors related to that system including errors in grammar, punctuation, and spelling, as well as words and phrases that may be inappropriate. If there are any questions or concerns please feel free to contact the dictating provider for clarification.) Alberto Angeles DO (electronically signed) Emergency Medicine Provider Alberto Angeles DO 01/31/24135 documented in this encounter [facility] 01-30-2024 Emergency department Note Lopez cath bag last drained at 1999. Harriet Gutiérrez RN 01/30/242299 [facility] 01-30-2024 Physician Emergency department Note EMERGENCY DEPARTMENT ENCOUNTER Pt Name: Ciro Sales Birthdate 1935 Date of evaluation: 01/30/2024 ED Provider: Alberto Angeles DO CHIEF COMPLAINT Chief Complaint Patient presents with Urinary Catheter Problem Pt here for third night in a row for catheter to be flushed. Pt has had to have pain medications and catheter flushed for it to drain. Pt reports he has settlement in his catheter clogging it due to a UTI. Pt has suprapubic catheter and has a urologist who he called today. HISTORY OF PRESENT ILLNESS (Location/Symptom, Timing/Onset, Context/Setting, Quality, Duration, Modifying Factors, Severity) Note limiting factors. I wore appropriate PPE for the entirety of this encounter. HPI Ciro Sales is a 88 y.o. male who presents to the emergency department with lower abdominal pain and decreased output from his suprapubic catheter. Patient has been in the emergency room the past 3 nights for the same complaint. Found to have a UTI 2 nights ago which led to increased sediment buildup which clog the catheter. Last night it was flushed and draining. Today when he was going to bed he noticed mild increased pain and decreased output. Pain is now moderate to severe in the suprapubic region. No fevers or chills. Nursing Notes were reviewed. REVIEW OF SYSTEMS 14 systems reviewed and otherwise acutely negative except as in the [place]. PAST MEDICAL HISTORY Past Medical History: Diagnosis Date Acute deep vein thrombosis (DVT) of popliteal vein of left lower extremity (HCC) 11/18/2022 11/04/2022. 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/2023 Anemia Arthritis Cancer (CMS/HCC) (HCC) BcC of nose DVT (deep venous thrombosis) ([facility]) LLE GERD (gastroesophageal reflux disease) History of elevated PSA Hyperlipidemia Hypertension Poison gt 11/22/2020 Umbilical hernia without obstruction or gangrene SCHEDULED FOR THE SURGERY ON 05/28 Viral URI with cough 04/11/2022 SURGICAL HISTORY Past Surgical History: Procedure Laterality Date CATARACT EXTRACTION Right COLONOSCOPY HEMORRHOID SURGERY 1999 [facility] HERNIA REPAIR Right inguinal LAMINECTOMY 07/31/2023 L2, L3, L4, L5 laminectomy L4-L5 fusion NOSE SURGERY A KID OTHER SURGICAL HISTORY TURP UMBILICAL HERNIA REPAIR 05/28/2019 CURRENT MEDICATIONS Discharge Medication List as of 01/30/2024 11:26 PM CONTINUE these medications which have NOT CHANGED Details albuterol (2.5 MG/3ML) 0.083% nebulizer solution Take 3 mL (2.5 mg) by nebulization every 6 hours as needed for wheezing., Starting 01/13/2024, Print ASCORBIC ACID PO Take 500 mg by mouth before bedtime., Historical Med Calcium Citrate-Vitamin D (CALCIUM CITRATE + PO) Take 600 mg by mouth before bedtime., Historical Med cefuroxime (Ceftin) 500 MG tablet Take 1 tablet (500 mg) by mouth 2 times daily for 7 days., Starting Fri01/28/2024, Until Fri02/04/2024, Normal CHOLECALCIFEROL PO Take 125 mcg by mouth before bedtime., Historical Med ciclopirox (Loprox) 0.77 % cream Apply topically 2 times daily x4 weeks to affected toenails, Normal famotidine (Pepcid) 20 MG tablet Take by mouth every evening., Historical Med finasteride (Proscar) 5 MG tablet Take 1 tablet (5 mg) by mouth daily. Do not crush, chew, or split., Starting Fri12/16/2023, Until Fri12/15/2024, Normal fluticasone (Flonase) 50 MCG/ACT nasal spray Administer 2 sprays into each nostril daily. Shake gently. Before first use, prime pump. After use, clean tip and replace cap., Starting Fri09/11/2023, Until Fri09/10/2024, Normal Fluticasone-Salmeterol 500-50 MCG/ACT aerosol powder INHALE 1 DOSE BY MOUTH TWICE DAILY DIRECTED, Historical Med guaiFENesin (Mucinex) 600 MG 12 hr tablet Take 1 tablet (600 mg) by mouth 2 times daily. Do not crush, chew, or split., Starting Fri10/13/2023, Until Fri02/10/2024, Normal Multiple Vitamins-Minerals (CENTRUM SILVER 50+MEN PO) Take by mouth Nightly., Historical Med NON FORMULARY 2 times daily as needed. Unk eye drop, Historical Med pantoprazole (ProtoNix) 40 MG EC tablet Take 40 mg by mouth daily., Starting Fri11/27/2023, Historical Med polyethylene glycol, PEG, 3350 (MiraLax) 17 GM/SCOOP powder Take 17 g by mouth daily., Starting Fri12/16/2023, Until Fri12/15/2024, Normal rivaroxaban (Xarelto) 20 MG tablet Take 1 tablet (20 mg) by mouth daily. Take with food. Do not start before January 07, 2024., Starting Fri01/07/2024, Normal senna-docusate sodium (Senokot-S) 8.6-50 MG tablet Take 1 tablet by mouth Daily as needed for constipation (if no bowel movement in 3 days)., Starting Fri09/29/2023, Until Tu09/28/2024 at 2359, Normal valsartan (Diovan) 40 MG tablet Take 1 tablet (40 mg) by mouth daily., Starting Fri10/13/2023, Until 04/10/2024, Normal ALLERGIES Hydrocodone, Lisinopril, and Seasonal ic [cholestatin] FAMILY HISTORY Family History Problem Relation Name Age of Onset Heart disease Mother Cancer Father SOCIAL HISTORY Social History Socioeconomic History Marital status: Tobacco Use Smoking status: Never Smokeless tobacco: Never Vaping Use Vaping status: Never Used Substance and Sexual Activity Alcohol use: Yes Comment: 3-4 per year Drug use: No Sexual activity: Not Currently Social Determinants of Health Financial Resource Strain: Low Risk (04/10/2023) Overall Financial Resource Strain (CARDIA) Difficulty of Paying Living Expenses: Not very hard Food Insecurity: No Food Insecurity (01/06/2024) Hunger Vital Sign Worried About Running Out of Food in the Last Year: Never true Ran Out of Food in the Last Year: Never true Transportation Needs: No Transportation Needs (01/06/2024) PRAPARE - Transportation Lack of Transportation (Medical): No Lack of Transportation (Non-Medical): No Physical Activity: Insufficiently Active (04/10/2023) Exercise Vital Sign Days of Exercise per Week: 1 day Minutes of Exercise per Session: 20 min Stress: No Stress Concern Present (11/11/2023) [employer] - Occupational Stress Questionnaire Feeling of Stress : Not at all Social Connections: Socially Integrated (11/11/2023) Social Connection and Isolation Panel [NHANES] Frequency of Communication with Friends and Family: More than three times a week Frequency of Social Gatherings with Friends and Family: More than three times a week Attends [employer] Services: More than 4 times per year Active Member of Clubs or Organizations: Yes Attends Club or Organization Meetings: More than 4 times per year Marital Status: Intimate Partner Violence: Not At Risk (01/06/2024) Humiliation, Afraid, Rape, and Kick questionnaire Fear of Current or Ex-Partner: No Emotionally Abused: No Physically Abused: No Sexually Abused: No Housing Stability: Unknown (01/06/2024) Housing Stability Vital Sign Unable to Pay for Housing in the Last Year: No Homeless in the Last Year: No SCREENINGS PHYSICAL EXAM ED Triage Vitals [01/30/242253] Temp Heart Rate Resp BP 36.4 C (97.6 F) 87 16 (!) 168/87 SpO2 Temp Source Heart Rate Source Patient Position 95 % Oral Monitor -- BP Location FiO2 (%) -- -- CONSTITUTIONAL: AOx4, no apparent distress, appears stated age HEAD: normocephalic, atraumatic EYES: PERRL, EOMI ENT: moist mucous membranes, uvula midline NECK: supple, symmetric BACK: symmetric LUNGS: clear to auscultation bilaterally CARDIOVASCULAR: regular rate and rhythm ABDOMEN: soft, mild to moderate suprapubic tenderness,, non-distended with normal active bowel sounds, suprapubic catheter site appears clean dry and intact. : deferred NEUROLOGIC: MAEx4, no focal sensory or motor deficits MUSCULOSKELETAL: no clubbing, cyanosis or edema SKIN: no exposed rash DIAGNOSTIC RESULTS Procedures/EKG: EKG was reviewed by myself. Physician EKG interpretation can be found in [facility] RADIOLOGY (Per Emergency Physician): Interpretation per the Radiologist below, if available at the time of this note: No orders to display ED BEDSIDE ULTRASOUND: Performed by ED Physician - none LABS: Labs Reviewed - No data to display All other labs were within normal range or not returned as of this dictation. EMERGENCY DEPARTMENT COURSE and DIFFERENTIAL DIAGNOSIS/MDM: Vitals: Vitals: 01/30/24225301/30/24225501/30/242334 BP: (!) 168/87 119/75 Pulse: 87 Resp: 16 Temp: 36.4 C (97.6 F) TempSrc: Oral SpO2: 95% 95% Weight: 92.5 kg (204 lb) Height: 1.778 m (5' 10) EMERGENCY DEPARTMENT COURSE and DIFFERENTIAL DIAGNOSIS/MDM: Vitals: Vitals: 01/30/24225301/30/24225501/30/242334 BP: (!) 168/87 119/75 Pulse: 87 Resp: 16 Temp: 36.4 C (97.6 F) TempSrc: Oral SpO2: 95% 95% Weight: 92.5 kg (204 lb) Height: 1.778 m (5' 10) The patient presented with a chief complaint of decreased urinary output from his Lopez catheter and increased abdominal pain. The differential diagnosis associated with this patient's presentation includes obstruction due to sediment, UTI, bleeding. Our workup consisted of ordering/reviewing catheter easily flushed by nurse, large piece of obstructing sediment was removed and patient then freely drained 750 mL of clear yellow urine. Patient called his urologist today who recommended increasing his p.o. intake and outpatient follow-up. I also reiterated this with the patient and his family today. Stable vital signs, symptoms resolved. No indication for repeat urinalysis or blood work. Patient family agreeable with plan. All questions answered. Okay to be discharged. Diagnoses as of 01/31/24 0133 Suprapubic catheter dysfunction, subsequent encounter Diagnostic tests considered but not performed: Consider BMP and urinalysis however has only been instructed for few hours so doubt RICHARD, no UTI on antibiotics External records reviewed: Inpatient notes urology note reviewed from 01/05/2024 the patient had TURP and insertion of suprapubic catheter Diagnostics interpreted by me: Discussions with other clinicians: Chronic conditions impacting care: Social determinants of health affecting care: ED Medications managed: Medications oxyCODONE (Roxicodone) immediate release tablet 10 mg (10 mg Oral Given 01/30/24 0693) CONSULTS: None PROCEDURES: Unless otherwise noted below, none Procedures Patients symptoms are consistent with sepsis, severe sepsis, or septic shock (If yes use .sepsiscoremeasure): FINAL IMPRESSION 1. Suprapubic catheter dysfunction, subsequent encounter DISPOSITION/PLAN dc PATIENT REFERRED TO: Hermann Damian MD [address], [address] [facility] [id number] DISCHARGE MEDICATIONS: Discharge Medication List as of 01/30/2024 11:26 PM (Comment: Please note this report has been produced using speech recognition software and may contain errors related to that system including errors in grammar, punctuation, and spelling, as well as words and phrases that may be inappropriate. If there are any questions or concerns please feel free to contact the dictating provider for clarification.) Alberto Angeles DO (electronically signed) Emergency Medicine Provider Alberto Angeles DO 01/31/24 0136 [facility] 01-30-2024 Hospital Discharge instructions King Baeza MD - 01/30/2024 12:30 AM EDT Return if having any significant changes or worsening to your Lopez output. Likely that sediment may be building and causing intermittent blockages. This can be prevented if you are staying well-hydrated which will allow for continuous flow of the catheter documented in this encounter [facility] 01-30-[address] Baeza at bedside. Hemalatha Sanchez RN 01/30/24 0026 [facility] 01-30-[address] Baeza at bedside. Hemalatha Sanchez RN 01/30/24 0026 Suprapubic catheter irrigated with 60 ML sterile water. Small amount of a yellow substance noted in syringe after irrigation. Immediate return of urine- approx 500 ml. Patient tolerated well. New dressing placed on insertion site per patient request. Site was open to air prior. Hemalatha Sanchez RN 01/30/24 0026 EMERGENCY DEPARTMENT ENCOUNTER Pt Name: Ciro Sales Birthdate 1935 Date of evaluation: 01/29/2024 ED Provider: King Baeza MD CHIEF COMPLAINT Chief Complaint Patient presents with Urinary Retention Pt has suprapubic catheter that has stopped draining. Began to have pain when going to sleep. HISTORY OF PRESENT ILLNESS I wore appropriate PPE for the entirety of this encounter. HPI Ciro Sales is a 88 y.o. person who presents to the emergency department with concern for Lopez catheter not draining. He had a TURP procedure done last month and had both Lopez catheter placed through his penis as well as suprapubically. He was seen in the office 2 weeks ago where they removed his penile Lopez catheter and was able to do a void trial at that time they did his suprapubic catheter with the hopes that he would be urinating normally although he reports that has not been doing so. He does have mild leakage through the penis itself although main drainage is through the Lopez catheter. He was seen here yesterday where he had CT imaging as well as blood work and urinalysis obtained was thought to have a UTI and case was discussed with urology on-call who recommended keeping Lopez catheter in place as the tract was too immature at this time and having him follow-up outpatient. He reports throughout the day was draining appropriately up until about 7 PM when it stopped draining he feels suprapubic pain as well as no drainage from the Lopez catheter since this time last time he emptied it was at 9 PM and has had no output since then. Nursing Notes were reviewed. Limitations to history: None Outside historians: None REVIEW OF SYSTEMS Review of Systems Gastrointestinal: Positive for abdominal pain. PAST MEDICAL HISTORY Past Medical History: Diagnosis Date Acute deep vein thrombosis (DVT) of popliteal vein of left lower extremity (HCC) 11/18/2022 11/04/2022. 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/2023 Anemia Arthritis Cancer (CMS/HCC) (HCC) BcC of nose DVT (deep venous thrombosis) ([facility]) LLE GERD (gastroesophageal reflux disease) History of elevated PSA Hyperlipidemia Hypertension Poison gt 11/22/2020 Umbilical hernia without obstruction or gangrene SCHEDULED FOR THE SURGERY ON 05/28 Viral URI with cough 04/11/2022 SURGICAL HISTORY Past Surgical History: Procedure Laterality Date CATARACT EXTRACTION Right COLONOSCOPY HEMORRHOID SURGERY 1999 [facility] HERNIA REPAIR Right inguinal LAMINECTOMY 07/31/2023 L2, L3, L4, L5 laminectomy L4-L5 fusion NOSE SURGERY A KID OTHER SURGICAL HISTORY TURP UMBILICAL HERNIA REPAIR 05/28/2019 CURRENT MEDICATIONS Previous Medications ALBUTEROL (2.5 MG/3ML) 0.083% NEBULIZER SOLUTION Take 3 mL (2.5 mg) by nebulization every 6 hours as needed for wheezing. ASCORBIC ACID PO Take 500 mg by mouth before bedtime. CALCIUM CITRATE-VITAMIN D (CALCIUM CITRATE + PO) Take 600 mg by mouth before bedtime. CEFUROXIME (CEFTIN) 500 MG TABLET Take 1 tablet (500 mg) by mouth 2 times daily for 7 days. CHOLECALCIFEROL PO Take 125 mcg by mouth before bedtime. CICLOPIROX (LOPROX) 0.77 % CREAM Apply topically 2 times daily x4 weeks to affected toenails FAMOTIDINE (PEPCID) 20 MG TABLET Take by mouth every evening. FINASTERIDE (PROSCAR) 5 MG TABLET Take 1 tablet (5 mg) by mouth daily. Do not crush, chew, or split. FLUTICASONE (FLONASE) 50 MCG/ACT NASAL SPRAY Administer 2 sprays into each nostril daily. Shake gently. Before first use, prime pump. After use, clean tip and replace cap. FLUTICASONE-SALMETEROL 500-50 MCG/ACT AEROSOL POWDER INHALE 1 DOSE BY MOUTH TWICE DAILY DIRECTED GUAIFENESIN (MUCINEX) 600 MG 12 HR TABLET Take 1 tablet (600 mg) by mouth 2 times daily. Do not crush, chew, or split. MULTIPLE VITAMINS-MINERALS (CENTRUM SILVER 50+MEN PO) Take by mouth Nightly. NON FORMULARY 2 times daily as needed. Unk eye drop PANTOPRAZOLE (PROTONIX) 40 MG EC TABLET Take 40 mg by mouth daily. POLYETHYLENE GLYCOL, PEG, 3350 (MIRALAX) 17 GM/SCOOP POWDER Take 17 g by mouth daily. RIVAROXABAN (XARELTO) 20 MG TABLET Take 1 tablet (20 mg) by mouth daily. Take with food. Do not start before January 07, 2024. SENNA-DOCUSATE SODIUM (SENOKOT-S) 8.6-50 MG TABLET Take 1 tablet by mouth Daily as needed for constipation (if no bowel movement in 3 days). VALSARTAN (DIOVAN) 40 MG TABLET Take 1 tablet (40 mg) by mouth daily. ALLERGIES Hydrocodone, Lisinopril, and Seasonal ic [cholestatin] FAMILY HISTORY Family History Problem Relation Name Age of Onset Heart disease Mother Cancer Father SOCIAL HISTORY Social History Socioeconomic History Marital status: Tobacco Use Smoking status: Never Smokeless tobacco: Never Vaping Use Vaping status: Never Used Substance and Sexual Activity Alcohol use: Yes Comment: 3-4 per year Drug use: No Sexual activity: Not Currently Social Determinants of Health Financial Resource Strain: Low Risk (04/10/2023) Overall Financial Resource Strain (CARDIA) Difficulty of Paying Living Expenses: Not very hard Food Insecurity: No Food Insecurity (01/06/2024) Hunger Vital Sign Worried About Running Out of Food in the Last Year: Never true Ran Out of Food in the Last Year: Never true Transportation Needs: No Transportation Needs (01/06/2024) PRAPARE - Transportation Lack of Transportation (Medical): No Lack of Transportation (Non-Medical): No Physical Activity: Insufficiently Active (04/10/2023) Exercise Vital Sign Days of Exercise per Week: 1 day Minutes of Exercise per Session: 20 min Stress: No Stress Concern Present (11/11/2023) [employer] - Occupational Stress Questionnaire Feeling of Stress : Not at all Social Connections: Socially Integrated (11/11/2023) Social Connection and Isolation Panel [NHANES] Frequency of Communication with Friends and Family: More than three times a week Frequency of Social Gatherings with Friends and Family: More than three times a week Attends [employer] Services: More than 4 times per year Active Member of Clubs or Organizations: Yes Attends Club or Organization Meetings: More than 4 times per year Marital Status: Intimate Partner Violence: Not At Risk (01/06/2024) Humiliation, Afraid, Rape, and Kick questionnaire Fear of Current or Ex-Partner: No Emotionally Abused: No Physically Abused: No Sexually Abused: No Housing Stability: Unknown (01/06/2024) Housing Stability Vital Sign Unable to Pay for Housing in the Last Year: No Homeless in the Last Year: No SCREENINGS PHYSICAL EXAM ED Triage Vitals [01/29/24 2333] Temp Heart Rate Resp BP 37 C (98.6 F) 85 16 (!) 178/107 SpO2 Temp Source Heart Rate Source Patient Position 93 % Oral -- -- BP Location FiO2 (%) -- -- GENERAL: The patient appears nourished and normally developed. Vital signs as documented. Appears uncomfortable EYES: PERRL. No scleral icterus or orbital trauma noted. HEENT: Mucous membranes moist. Nares patent without copious rhinorrhea. LUNGS: Lungs are clear to auscultation, without any respiratory distress. CARDIAC: Rhythm is regular. No murmur appreciated ABDOMEN: Tender in the suprapubic region, soft, with no obvious masses, and no peritoneal signs. EXTREMITIES: Non edematous, with no obvious deformities. SKIN: Good color, with no significant rashes. No pallor. NEURO: No obvious neurological deficits, normal sensation and strength bilaterally. DIAGNOSTIC RESULTS RADIOLOGY (Per Emergency Physician): Interpretation per the Radiologist below, if available at the time of this note: No orders to display EKG Interpretation: LABS: Labs Reviewed - No data to display All other labs were within normal range or not returned as of this dictation. EMERGENCY DEPARTMENT COURSE and DIFFERENTIAL DIAGNOSIS/MDM: Vitals: Vitals: 01/29/24 2333 BP: (!) 178/107 Pulse: 85 Resp: 16 Temp: 37 C (98.6 F) TempSrc: Oral SpO2: 93% Weight: 92.5 kg (204 lb) Medications Administered in the ED: Medications oxyCODONE (Roxicodone) immediate release tablet 10 mg (10 mg Oral Given 01/29/24 2348) With concern for nondraining Lopez catheter PROCEDURES: Unless otherwise noted below, none Procedures Differential Diagnosis Considerations: Sediment, occlusion Sources of History: Patient ED Course: Vital signs on arrival with hypertension otherwise normal and stable he appears uncomfortable given oxycodone for pain control. Likely that he has some sediment buildup in the Lopez catheter itself and will attempt to irrigate to allow for adequate drainage. May need to consider penile Lopez catheter placement if not having any adequate drainage as he likely has some swelling from the TURP procedure itself that is limiting his outflow. Reassessment: Lopez catheter was irrigated and had improvement in output. Patient feels improved at this point in time as well. Will be discharged with follow-up with urology Consideration of Admission/Observation: Independent Interpretation of Tests: Diagnostic Tests Considered but not Performed: Prescription Medications Considered but not Prescribed: Chronic Conditions Affecting Care: FINAL IMPRESSION 1. Obstruction of Lopez catheter, initial encounter ([facility]) DISPOSITION Discharge 01/30/2024 12:30:11 AM CRITICAL CARE TIME PATIENT REFERRED TO: No follow-up provider specified. DISCHARGE MEDICATIONS: New Prescriptions No medications on file (Comment: Please note this report has been produced using speech recognition software and may contain errors related to that system including errors in grammar, punctuation, and spelling, as well as words and phrases that may be inappropriate. If there are any questions or concerns please feel free to contact the dictating provider for clarification.) King Baeza MD (electronically signed) Emergency Medicine Provider [facility] King Baeza MD 01/30/24 0030 documented in this encounter [facility] 01-30-2024 Emergency department Note Suprapubic catheter irrigated with 60 ML sterile water. Small amount of a yellow substance noted in syringe after irrigation. Immediate return of urine- approx 500 ml. Patient tolerated well. New dressing placed on insertion site per patient request. Site was open to air prior. Hemalatha Sanchez RN 01/30/24 0026 [facility] 01-29-2024 Physician Emergency department Note EMERGENCY DEPARTMENT ENCOUNTER Pt Name: Ciro Sales Birthdate 1935 Date of evaluation: 01/29/2024 ED Provider: King Baeza MD CHIEF COMPLAINT Chief Complaint Patient presents with Urinary Retention Pt has suprapubic catheter that has stopped draining. Began to have pain when going to sleep. HISTORY OF PRESENT ILLNESS I wore appropriate PPE for the entirety of this encounter. HPI Ciro Sales is a 88 y.o. person who presents to the emergency department with concern for Lopez catheter not draining. He had a TURP procedure done last month and had both Lopez catheter placed through his penis as well as suprapubically. He was seen in the office 2 weeks ago where they removed his penile Lopez catheter and was able to do a void trial at that time they did his suprapubic catheter with the hopes that he would be urinating normally although he reports that has not been doing so. He does have mild leakage through the penis itself although main drainage is through the Lopez catheter. He was seen here yesterday where he had CT imaging as well as blood work and urinalysis obtained was thought to have a UTI and case was discussed with urology on-call who recommended keeping Lopez catheter in place as the tract was too immature at this time and having him follow-up outpatient. He reports throughout the day was draining appropriately up until about 7 PM when it stopped draining he feels suprapubic pain as well as no drainage from the Lopez catheter since this time last time he emptied it was at 9 PM and has had no output since then. Nursing Notes were reviewed. Limitations to history: None Outside historians: None REVIEW OF SYSTEMS Review of Systems Gastrointestinal: Positive for abdominal pain. PAST MEDICAL HISTORY Past Medical History: Diagnosis Date Acute deep vein thrombosis (DVT) of popliteal vein of left lower extremity ([facility]) 11/18/2022 11/04/2022. 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 ([facility]) 04/21/2023 Anemia Arthritis Cancer (CMS/HCC) (HCC) BcC of nose DVT (deep venous thrombosis) ([facility]) LLE GERD (gastroesophageal reflux disease) History of elevated PSA Hyperlipidemia Hypertension Poison gt 11/22/2020 Umbilical hernia without obstruction or gangrene SCHEDULED FOR THE SURGERY ON 05/28 Viral URI with cough 04/11/2022 SURGICAL HISTORY Past Surgical History: Procedure Laterality Date CATARACT EXTRACTION Right COLONOSCOPY HEMORRHOID SURGERY 1999 [facility] HERNIA REPAIR Right inguinal LAMINECTOMY 07/31/2023 L2, L3, L4, L5 laminectomy L4-L5 fusion NOSE SURGERY A KID OTHER SURGICAL HISTORY TURP UMBILICAL HERNIA REPAIR 05/28/2019 CURRENT MEDICATIONS Previous Medications ALBUTEROL (2.5 MG/3ML) 0.083% NEBULIZER SOLUTION Take 3 mL (2.5 mg) by nebulization every 6 hours as needed for wheezing. ASCORBIC ACID PO Take 500 mg by mouth before bedtime. CALCIUM CITRATE-VITAMIN D (CALCIUM CITRATE + PO) Take 600 mg by mouth before bedtime. CEFUROXIME (CEFTIN) 500 MG TABLET Take 1 tablet (500 mg) by mouth 2 times daily for 7 days. CHOLECALCIFEROL PO Take 125 mcg by mouth before bedtime. CICLOPIROX (LOPROX) 0.77 % CREAM Apply topically 2 times daily x4 weeks to affected toenails FAMOTIDINE (PEPCID) 20 MG TABLET Take by mouth every evening. FINASTERIDE (PROSCAR) 5 MG TABLET Take 1 tablet (5 mg) by mouth daily. Do not crush, chew, or split. FLUTICASONE (FLONASE) 50 MCG/ACT NASAL SPRAY Administer 2 sprays into each nostril daily. Shake gently. Before first use, prime pump. After use, clean tip and replace cap. FLUTICASONE-SALMETEROL 500-50 MCG/ACT AEROSOL POWDER INHALE 1 DOSE BY MOUTH TWICE DAILY DIRECTED GUAIFENESIN (MUCINEX) 600 MG 12 HR TABLET Take 1 tablet (600 mg) by mouth 2 times daily. Do not crush, chew, or split. MULTIPLE VITAMINS-MINERALS (CENTRUM SILVER 50+MEN PO) Take by mouth Nightly. NON FORMULARY 2 times daily as needed. Unk eye drop PANTOPRAZOLE (PROTONIX) 40 MG EC TABLET Take 40 mg by mouth daily. POLYETHYLENE GLYCOL, PEG, 3350 (MIRALAX) 17 GM/SCOOP POWDER Take 17 g by mouth daily. RIVAROXABAN (XARELTO) 20 MG TABLET Take 1 tablet (20 mg) by mouth daily. Take with food. Do not start before January 07, 2024. SENNA-DOCUSATE SODIUM (SENOKOT-S) 8.6-50 MG TABLET Take 1 tablet by mouth Daily as needed for constipation (if no bowel movement in 3 days). VALSARTAN (DIOVAN) 40 MG TABLET Take 1 tablet (40 mg) by mouth daily. ALLERGIES Hydrocodone, Lisinopril, and Seasonal ic [cholestatin] FAMILY HISTORY Family History Problem Relation Name Age of Onset Heart disease Mother Cancer Father SOCIAL HISTORY Social History Socioeconomic History Marital status: Tobacco Use Smoking status: Never Smokeless tobacco: Never Vaping Use Vaping status: Never Used Substance and Sexual Activity Alcohol use: Yes Comment: 3-4 per year Drug use: No Sexual activity: Not Currently Social Determinants of Health Financial Resource Strain: Low Risk (04/10/2023) Overall Financial Resource Strain (CARDIA) Difficulty of Paying Living Expenses: Not very hard Food Insecurity: No Food Insecurity (01/06/2024) Hunger Vital Sign Worried About Running Out of Food in the Last Year: Never true Ran Out of Food in the Last Year: Never true Transportation Needs: No Transportation Needs (01/06/2024) PRAPARE - Transportation Lack of Transportation (Medical): No Lack of Transportation (Non-Medical): No Physical Activity: Insufficiently Active (04/10/2023) Exercise Vital Sign Days of Exercise per Week: 1 day Minutes of Exercise per Session: 20 min Stress: No Stress Concern Present (11/11/2023) [employer] - Occupational Stress Questionnaire Feeling of Stress : Not at all Social Connections: Socially Integrated (11/11/2023) Social Connection and Isolation Panel [NHANES] Frequency of Communication with Friends and Family: More than three times a week Frequency of Social Gatherings with Friends and Family: More than three times a week Attends [employer] Services: More than 4 times per year Active Member of Clubs or Organizations: Yes Attends Club or Organization Meetings: More than 4 times per year Marital Status: Intimate Partner Violence: Not At Risk (01/06/2024) Humiliation, Afraid, Rape, and Kick questionnaire Fear of Current or Ex-Partner: No Emotionally Abused: No Physically Abused: No Sexually Abused: No Housing Stability: Unknown (01/06/2024) Housing Stability Vital Sign Unable to Pay for Housing in the Last Year: No Homeless in the Last Year: No SCREENINGS PHYSICAL EXAM ED Triage Vitals [01/29/24 2333] Temp Heart Rate Resp BP 37 C (98.6 F) 85 16 (!) 178/107 SpO2 Temp Source Heart Rate Source Patient Position 93 % Oral -- -- BP Location FiO2 (%) -- -- GENERAL: The patient appears nourished and normally developed. Vital signs as documented. Appears uncomfortable EYES: PERRL. No scleral icterus or orbital trauma noted. HEENT: Mucous membranes moist. Nares patent without copious rhinorrhea. LUNGS: Lungs are clear to auscultation, without any respiratory distress. CARDIAC: Rhythm is regular. No murmur appreciated ABDOMEN: Tender in the suprapubic region, soft, with no obvious masses, and no peritoneal signs. EXTREMITIES: Non edematous, with no obvious deformities. SKIN: Good color, with no significant rashes. No pallor. NEURO: No obvious neurological deficits, normal sensation and strength bilaterally. DIAGNOSTIC RESULTS RADIOLOGY (Per Emergency Physician): Interpretation per the Radiologist below, if available at the time of this note: No orders to display EKG Interpretation: LABS: Labs Reviewed - No data to display All other labs were within normal range or not returned as of this dictation. EMERGENCY DEPARTMENT COURSE and DIFFERENTIAL DIAGNOSIS/MDM: Vitals: Vitals: 01/29/24 2333 BP: (!) 178/107 Pulse: 85 Resp: 16 Temp: 37 C (98.6 F) TempSrc: Oral SpO2: 93% Weight: 92.5 kg (204 lb) Medications Administered in the ED: Medications oxyCODONE (Roxicodone) immediate release tablet 10 mg (10 mg Oral Given 01/29/24 2348) With concern for nondraining Lopez catheter PROCEDURES: Unless otherwise noted below, none Procedures Differential Diagnosis Considerations: Sediment, occlusion Sources of History: Patient ED Course: Vital signs on arrival with hypertension otherwise normal and stable he appears uncomfortable given oxycodone for pain control. Likely that he has some sediment buildup in the Lopez catheter itself and will attempt to irrigate to allow for adequate drainage. May need to consider penile Lopez catheter placement if not having any adequate drainage as he likely has some swelling from the TURP procedure itself that is limiting his outflow. Reassessment: Lopez catheter was irrigated and had improvement in output. Patient feels improved at this point in time as well. Will be discharged with follow-up with urology Consideration of Admission/Observation: Independent Interpretation of Tests: Diagnostic Tests Considered but not Performed: Prescription Medications Considered but not Prescribed: Chronic Conditions Affecting Care: FINAL IMPRESSION 1. Obstruction of Lopez catheter, initial encounter ([facility]) DISPOSITION Discharge 01/30/2024 12:30:11 AM CRITICAL CARE TIME PATIENT REFERRED TO: No follow-up provider specified. DISCHARGE MEDICATIONS: New Prescriptions No medications on file (Comment: Please note this report has been produced using speech recognition software and may contain errors related to that system including errors in grammar, punctuation, and spelling, as well as words and phrases that may be inappropriate. If there are any questions or concerns please feel free to contact the dictating provider for clarification.) King Baeza MD (electronically signed) Emergency Medicine Provider [facility] King Baeza MD 01/30/24 0030 [facility] 01-28-2024 Emergency department Note Pt changed into clean diaper, new dressing applied to suprapubic catheter, pt changed into his clothes and assisted to car via wheelchair. Lacy Anderson RN 01/28/241857 [facility] 01-28-2024 Emergency department Note Pt changed into clean diaper, new dressing applied to suprapubic catheter, pt changed into his clothes and assisted to car via wheelchair. Lacy Anderson RN 01/28/248 [facility] ED EMERGENCY DEPARTMENT ENCOUNTER Pt Name: Ciro Sales Birthdate 1935 Date of evaluation: 01/28/2024 Provider: Andres Servin MD CHIEF COMPLAINT Chief Complaint Patient presents with Groin Pain Pt reports pain in his groin that started yesterday after riding a stationary bike for 15 minutes. Pt had a suprapubic catheter placed 2 weeks ago, pt denies fevers. Pt is incontinent, urinating with his penis in addition to the suprapubic catheter, catheter also appears to be leaking at the site, urine is malodorous and cloudy. HISTORY OF PRESENT ILLNESS I wore proper PPE for the entirety of this encounter. Ciro Sales is a 88 y.o. male who presents to the emergency department with left lower quadrant abdominal pain/inguinal pain after riding a stationary bike this evening. Patient also notes that 2 weeks ago his suprapubic catheter placed. He denies nausea, vomiting, diarrhea, constipation. No hematuria. He does have incontinence of urine through his penis but does not note any dysuria. No fever or chills. Nursing Notes were reviewed. REVIEW OF SYSTEMS As above PAST MEDICAL HISTORY Past Medical History: Diagnosis Date Acute deep vein thrombosis (DVT) of popliteal vein of left lower extremity (HCC) 11/18/2022 11/04/2022. 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/2023 Anemia Arthritis Cancer (CMS/HCC) (HCC) BcC of nose DVT (deep venous thrombosis) ([facility]) LLE GERD (gastroesophageal reflux disease) History of elevated PSA Hyperlipidemia Hypertension Poison gt 11/22/2020 Umbilical hernia without obstruction or gangrene SCHEDULED FOR THE SURGERY ON 05/28 Viral URI with cough 04/11/2022 SURGICAL HISTORY Past Surgical History: Procedure Laterality Date CATARACT EXTRACTION Right COLONOSCOPY HEMORRHOID SURGERY 1999 [facility] HERNIA REPAIR Right inguinal LAMINECTOMY 07/31/2023 L2, L3, L4, L5 laminectomy L4-L5 fusion NOSE SURGERY A KID OTHER SURGICAL HISTORY TURP UMBILICAL HERNIA REPAIR 05/28/2019 CURRENT MEDICATIONS Discharge Medication List as of 01/28/2024 6:01 PM CONTINUE these medications which have NOT CHANGED Details albuterol (2.5 MG/3ML) 0.083% nebulizer solution Take 3 mL (2.5 mg) by nebulization every 6 hours as needed for wheezing., Starting Fri01/13/2024, Print ASCORBIC ACID PO Take 500 mg by mouth before bedtime., Historical Med Calcium Citrate-Vitamin D (CALCIUM CITRATE + PO) Take 600 mg by mouth before bedtime., Historical Med CHOLECALCIFEROL PO Take 125 mcg by mouth before bedtime., Historical Med ciclopirox (Loprox) 0.77 % cream Apply topically 2 times daily x4 weeks to affected toenails, Normal famotidine (Pepcid) 20 MG tablet Take by mouth every evening., Historical Med finasteride (Proscar) 5 MG tablet Take 1 tablet (5 mg) by mouth daily. Do not crush, chew, or split., Starting Fri12/16/2023, Until Fri12/15/2024, Normal fluticasone (Flonase) 50 MCG/ACT nasal spray Administer 2 sprays into each nostril daily. Shake gently. Before first use, prime pump. After use, clean tip and replace cap., Starting Fri09/11/2023, Until Fri09/10/2024, Normal Fluticasone-Salmeterol 500-50 MCG/ACT aerosol powder INHALE 1 DOSE BY MOUTH TWICE DAILY DIRECTED, Historical Med guaiFENesin (Mucinex) 600 MG 12 hr tablet Take 1 tablet (600 mg) by mouth 2 times daily. Do not crush, chew, or split., Starting Fri10/13/2023, Until Fri02/10/2024, Normal Multiple Vitamins-Minerals (CENTRUM SILVER 50+MEN PO) Take by mouth Nightly., Historical Med NON FORMULARY 2 times daily as needed. Unk eye drop, Historical Med pantoprazole (ProtoNix) 40 MG EC tablet Take 40 mg by mouth daily., Starting Fri11/27/2023, Historical Med polyethylene glycol, PEG, 3350 (MiraLax) 17 GM/SCOOP powder Take 17 g by mouth daily., Starting Fri12/16/2023, Until Fri12/15/2024, Normal rivaroxaban (Xarelto) 20 MG tablet Take 1 tablet (20 mg) by mouth daily. Take with food. Do not start before January 07, 2024., Starting Fri01/07/2024, Normal senna-docusate sodium (Senokot-S) 8.6-50 MG tablet Take 1 tablet by mouth Daily as needed for constipation (if no bowel movement in 3 days)., Starting Fri09/29/2023, Until Fri09/28/2024 at 2359, Normal valsartan (Diovan) 40 MG tablet Take 1 tablet (40 mg) by mouth daily., Starting Fri10/13/2023, Until 04/10/2024, Normal ALLERGIES Hydrocodone, Lisinopril, and Seasonal ic [cholestatin] FAMILY HISTORY Family History Problem Relation Name Age of Onset Heart disease Mother Cancer Father SOCIAL HISTORY Social History Socioeconomic History Marital status: Tobacco Use Smoking status: Never Smokeless tobacco: Never Vaping Use Vaping status: Never Used Substance and Sexual Activity Alcohol use: Yes Comment: 3-4 per year Drug use: No Sexual activity: Not Currently Social Determinants of Health Financial Resource Strain: Low Risk (04/10/2023) Overall Financial Resource Strain (CARDIA) Difficulty of Paying Living Expenses: Not very hard Food Insecurity: No Food Insecurity (01/06/2024) Hunger Vital Sign Worried About Running Out of Food in the Last Year: Never true Ran Out of Food in the Last Year: Never true Transportation Needs: No Transportation Needs (01/06/2024) PRAPARE - Transportation Lack of Transportation (Medical): No Lack of Transportation (Non-Medical): No Physical Activity: Insufficiently Active (04/10/2023) Exercise Vital Sign Days of Exercise per Week: 1 day Minutes of Exercise per Session: 20 min Stress: No Stress Concern Present (11/11/2023) [employer] - Occupational Stress Questionnaire Feeling of Stress : Not at all Social Connections: Socially Integrated (11/11/2023) Social Connection and Isolation Panel [NHANES] Frequency of Communication with Friends and Family: More than three times a week Frequency of Social Gatherings with Friends and Family: More than three times a week Attends [employer] Services: More than 4 times per year Active Member of Clubs or Organizations: Yes Attends Club or Organization Meetings: More than 4 times per year Marital Status: Intimate Partner Violence: Not At Risk (01/06/2024) Humiliation, Afraid, Rape, and Kick questionnaire Fear of Current or Ex-Partner: No Emotionally Abused: No Physically Abused: No Sexually Abused: No Housing Stability: Unknown (01/06/2024) Housing Stability Vital Sign Unable to Pay for Housing in the Last Year: No Homeless in the Last Year: No SCREENINGS [place] Coma Scale Best Eye Response: Spontaneous Best Verbal Response: Oriented Best Motor Response: Follows commands Phyllis Coma Scale Score: 15 PHYSICAL EXAM ED Triage Vitals [01/28/24 1547] Temp Heart Rate Resp BP 36.9 C (98.4 F) 85 19 (!) 156/85 SpO2 Temp Source Heart Rate Source Patient Position 98 % Oral Monitor Sitting BP Location FiO2 (%) Left arm -- Constitutional: No acute distress HEENT:Head: Atraumatic Eyes: Conjunctivae normal. CV: RRR RESP: CTAB, good respiratory effort, no increased wob GI: Abdomen soft, non-tender, non-distended, +BS, no guarding or rebound tenderness. Suprapubic catheter in place with no surrounding erythmea MSK: Normal bulk and tone, no gross deformity BACK: No CVA tenderness EXTR: Warm and well perfused, no edema SKIN: No rash/bruising/erythema PSYCH: Appropriate affect, cooperative behavior NEURO: Alert, face symmetric, no slurred speech DIAGNOSTIC RESULTS Interpretation per the Radiologist below, if available at the time of this note: CT abdomen pelvis wo IV contrast Final Result 1. The bladder is distended approximately 16 cm with a suprapubic Lopez catheter present. There is abnormal wall thickening along the posterior aspect of the bladder, (differential malignancy versus chronic outlet obstruction inflammation). There is no clear fatty plane between the bladder and the prostate gland. The prostate gland is enlarged (TURP procedure 01/05/2024 with benign pathology). 2. There are enlarged abnormal lymph nodes to the right of the bladder and within the bilateral iliac chain measuring 1.9 cm and 2.2 cm, malignancy is not excluded 3. There is mild hydronephrosis. Bilateral perinephric stranding is present as well as stranding surrounding the bladder, superimposed infectious/inflammatory process not excluded. 4. Lumbar spine postsurgical changes. 5. Hepatic low attenuating lesions, probable cysts. 6. Colonic diverticulosis. 7. Additional findings, as above. Report Dictated on Electronically Signed By: Yuliya Lyle MD Electronically Signed Date/Time: 01/28/2024 5:15 PM EDT LABS: Labs Reviewed CBC WITH AUTO DIFFERENTIAL - Abnormal Result Value Auto WBC 12.0 (*) RBC 4.46 Hemoglobin 12.5 (*) Hematocrit 38.3 (*) MCV 85.9 MCH 28.0 MCHC 32.6 RDW 14.5 Platelets 311 MPV 9.6 nRBC 0.0 Neutrophils Relative 73.2 Lymphocytes Relative 18.4 Monocytes Relative 7.4 Eosinophils Relative 0.3 Basophils Relative 0.3 Immature Grans % 0.4 Neutrophils Absolute 8.8 (*) Lymphocytes Absolute 2.2 Monocytes Absolute 0.9 Eosinophils Absolute 0.0 Basophils Absolute 0.0 Immature Grans Absolute 0.1 (*) COMPREHENSIVE METABOLIC PANEL - Abnormal SODIUM 133 (*) POTASSIUM 4.5 CHLORIDE 97 (*) CARBON DIOXIDE 28 ANION GAP 9 UREA NITROGEN 26 (*) CREATININE 1.74 (*) GLUCOSE 135 (*) CALCIUM 9.0 AST (SGOT) 22 ALT 16 ALKALINE PHOSPHATASE 69 ALBUMIN 3.8 BILIRUBIN, TOTAL 0.8 TOTAL PROTEIN 7.2 eGFR 37.5 (*) COMPLETE URINALYSIS - Abnormal Color, Urine Yellow Clarity, Urine Extra Turbid (*) pH, Urine 6.5 Leukocytes, Urine 500 (*) Nitrite, Urine Negative Protein, Urine 200 (*) Glucose, Urine Normal Bilirubin, Urine Negative Ketones, Urine Negative Urobilinogen, Urine Normal Blood, Urine 1.0 (*) Volume, Urine QNS for accurate quantitation. RBC, Urine Present (*) WBC, Urine (*) Value: Grossly loaded, unable to identify any other formed elements. Squamous Epithelial, Urine Present (*) Bacteria, Urine Loaded (*) SPECIFIC GRAVITY OF URINE (NUMERIC) 1.014 LIPASE - Normal LIPASE 101 URINE CULTURE COMPLETE URINALYSIS WITH REFLEX TO CULTURE Narrative: The following orders were created for panel order Urinalysis Complete with reflex to Culture. Procedure Abnormality Status --------- ------ Complete Urinalysis[[id number]] Abnormal Final result Please view results for these tests on the individual orders. EMERGENCY DEPARTMENT COURSE and DIFFERENTIAL DIAGNOSIS/MDM: Vitals: Vitals: 01/28/24 1547 01/28/24 1611 01/28/24 1751 01/28/24 1837 BP: (!) 156/85 (!) 146/89 (!) 157/97 104/65 BP Location: Left arm Left arm Left arm Left arm Patient Position: Sitting Lying Lying Lying Pulse: 85 82 84 82 Resp: 19 18 17 16 Temp: 36.9 C (98.4 F) TempSrc: Oral SpO2: 98% 97% 95% 96% Weight: 91.2 kg (201 lb) Height: 1.778 m (5' 10) Medications acetaminophen (Tylenol) tablet 1,000 mg (1,000 mg Oral Not Given 01/28/24 1705) oxyCODONE (Roxicodone) immediate release tablet 10 mg (10 mg Oral Given 01/28/24 1717) cefTRIAXone (Rocephin) 1,000 mg in sodium chloride 0.9 % 50 mL IVPB Mini-Bag Plus (0 mg IntraVENous Stopped 01/28/24 183) I personally saw the patient and performed a substantive portion of the visit including all aspects of the medical decision making. Patient appears nontoxic and vital signs are normal. Bladder scan showed about 400 mL of urine in the bladder. Suprapubic catheter was irrigated and then 700 mL of urine came out. CMP shows stable elevated creatinine. Have no concern for RICHARD. CBC with slight leukocytosis of 12. Lipase is normal. Urinalysis concerning for UTI. CT abdomen pelvis showed a distended bladder with suprapubic urinary catheter in place. Numerous incidental findings. I discussed with Dr. Munson from urology. It is too soon for the catheter to be exchanged. He recommended antibiotics. Given ceftriaxone 1 g IV and then prescribed cefuroxime. Recommended urology follow-up as soon as possible. Discharged home in good condition. I discussed test results and plan with the patient. Diagnoses as of 01/28/241899 Acute cystitis without hematuria PROCEDURES: Unless otherwise noted below, none Procedures Patients symptoms are consistent with sepsis, severe sepsis, or septic shock (If yes use .sepsiscoremeasure): no FINAL IMPRESSION 1. Acute cystitis without hematuria DISPOSITION/PLAN Discharge 01/28/2024 06:00:13 PM PATIENT REFERRED TO: Sana Marcos DO [address] [facility] [address] Schedule an appointment as soon as possible for a visit DISCHARGE MEDICATIONS: Discharge Medication List as of 01/28/2024 6:01 PM START taking these medications Details cefuroxime (Ceftin) 500 MG tablet Take 1 tablet (500 mg) by mouth 2 times daily for 7 days., Starting 01/28/2024, Until Fri02/04/2024, Normal (Please note: Portions of this note were completed with a voice recognition program. Efforts were made to edit the dictations but occasionally words and phrases are mis-transcribed.) Andres Servin MD SO Emergency Medicine Physician [facility] Andres Servin MD 01/28/241899 documented in this encounter [facility] 01-28-2024 Hospital Discharge instructions Andres Servin MD - 01/28/2024 6:00 PM EDT You were seen in the Emergency Department for groin pain. Your workup here showed that you have a urinary tract infection. You should take antibiotics as prescribed. Follow-up with urology as soon as possible. Drink a lot of water. Return to the Emergency Department if you have: - Blocked catheter - High fever (102F) - Any other symptoms that concern you Please sign up for MyChart and review all results from your visit today. Please follow up with your primary care provider with any questions or concerns about your results today. Thank you for choosing [facility] for your care. Sincerely, Andres Servin MD The following attachments cannot be sent through Care Everywhere.Urinary Tract Infection, Adult ED (Naur[place])documented in this encounter [facility] 01-28-2024 Physician Emergency department Note [facility] ED EMERGENCY DEPARTMENT ENCOUNTER Pt Name: Ciro Sales Birthdate 1935 Date of evaluation: 01/28/2024 Provider: Andres Servin MD CHIEF COMPLAINT Chief Complaint Patient presents with Groin Pain Pt reports pain in his groin that started yesterday after riding a stationary bike for 15 minutes. Pt had a suprapubic catheter placed 2 weeks ago, pt denies fevers. Pt is incontinent, urinating with his penis in addition to the suprapubic catheter, catheter also appears to be leaking at the site, urine is malodorous and cloudy. HISTORY OF PRESENT ILLNESS I wore proper PPE for the entirety of this encounter. Ciro Sales is a 88 y.o. male who presents to the emergency department with left lower quadrant abdominal pain/inguinal pain after riding a stationary bike this evening. Patient also notes that 2 weeks ago his suprapubic catheter placed. He denies nausea, vomiting, diarrhea, constipation. No hematuria. He does have incontinence of urine through his penis but does not note any dysuria. No fever or chills. Nursing Notes were reviewed. REVIEW OF SYSTEMS As above PAST MEDICAL HISTORY Past Medical History: Diagnosis Date Acute deep vein thrombosis (DVT) of popliteal vein of left lower extremity (HCC) 11/18/2022 11/04/2022. 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/2023 Anemia Arthritis Cancer (CMS/HCC) ([facility]) BcC of nose DVT (deep venous thrombosis) (HCC) LLE GERD (gastroesophageal reflux disease) History of elevated PSA Hyperlipidemia Hypertension Poison gt 11/22/2020 Umbilical hernia without obstruction or gangrene SCHEDULED FOR THE SURGERY ON 05/28 Viral URI with cough 04/11/2022 SURGICAL HISTORY Past Surgical History: Procedure Laterality Date CATARACT EXTRACTION Right COLONOSCOPY HEMORRHOID SURGERY 1999 [facility] HERNIA REPAIR Right inguinal LAMINECTOMY 07/31/2023 L2, L3, L4, L5 laminectomy L4-L5 fusion NOSE SURGERY A KID OTHER SURGICAL HISTORY TURP UMBILICAL HERNIA REPAIR 05/28/2019 CURRENT MEDICATIONS Discharge Medication List as of 01/28/2024 6:01 PM CONTINUE these medications which have NOT CHANGED Details albuterol (2.5 MG/3ML) 0.083% nebulizer solution Take 3 mL (2.5 mg) by nebulization every 6 hours as needed for wheezing., Starting Fri01/13/2024, Print ASCORBIC ACID PO Take 500 mg by mouth before bedtime., Historical Med Calcium Citrate-Vitamin D (CALCIUM CITRATE + PO) Take 600 mg by mouth before bedtime., Historical Med CHOLECALCIFEROL PO Take 125 mcg by mouth before bedtime., Historical Med ciclopirox (Loprox) 0.77 % cream Apply topically 2 times daily x4 weeks to affected toenails, Normal famotidine (Pepcid) 20 MG tablet Take by mouth every evening., Historical Med finasteride (Proscar) 5 MG tablet Take 1 tablet (5 mg) by mouth daily. Do not crush, chew, or split., Starting Fri12/16/2023, Until Fri12/15/2024, Normal fluticasone (Flonase) 50 MCG/ACT nasal spray Administer 2 sprays into each nostril daily. Shake gently. Before first use, prime pump. After use, clean tip and replace cap., Starting Alyce 09/11/2023, Until Fri09/10/2024, Normal Fluticasone-Salmeterol 500-50 MCG/ACT aerosol powder INHALE 1 DOSE BY MOUTH TWICE DAILY DIRECTED, Historical Med guaiFENesin (Mucinex) 600 MG 12 hr tablet Take 1 tablet (600 mg) by mouth 2 times daily. Do not crush, chew, or split., Starting Fri10/13/2023, Until 02/10/2024, Normal Multiple Vitamins-Minerals (CENTRUM SILVER 50+MEN PO) Take by mouth Nightly., Historical Med NON FORMULARY 2 times daily as needed. Unk eye drop, Historical Med pantoprazole (ProtoNix) 40 MG EC tablet Take 40 mg by mouth daily., Starting Alyce 11/27/2023, Historical Med polyethylene glycol, PEG, 3350 (MiraLax) 17 GM/SCOOP powder Take 17 g by mouth daily., Starting Fri12/16/2023, Until Fri12/15/2024, Normal rivaroxaban (Xarelto) 20 MG tablet Take 1 tablet (20 mg) by mouth daily. Take with food. Do not start before January 07, 2024., Starting Fri01/07/2024, Normal senna-docusate sodium (Senokot-S) 8.6-50 MG tablet Take 1 tablet by mouth Daily as needed for constipation (if no bowel movement in 3 days)., Starting Fri09/29/2023, Until Fri09/28/2024 at 2359, Normal valsartan (Diovan) 40 MG tablet Take 1 tablet (40 mg) by mouth daily., Starting Fri10/13/2023, Until 04/10/2024, Normal ALLERGIES Hydrocodone, Lisinopril, and Seasonal ic [cholestatin] FAMILY HISTORY Family History Problem Relation Name Age of Onset Heart disease Mother Cancer Father SOCIAL HISTORY Social History Socioeconomic History Marital status: Tobacco Use Smoking status: Never Smokeless tobacco: Never Vaping Use Vaping status: Never Used Substance and Sexual Activity Alcohol use: Yes Comment: 3-4 per year Drug use: No Sexual activity: Not Currently Social Determinants of Health Financial Resource Strain: Low Risk (04/10/2023) Overall Financial Resource Strain (CARDIA) Difficulty of Paying Living Expenses: Not very hard Food Insecurity: No Food Insecurity (01/06/2024) Hunger Vital Sign Worried About Running Out of Food in the Last Year: Never true Ran Out of Food in the Last Year: Never true Transportation Needs: No Transportation Needs (01/06/2024) PRAPARE - Transportation Lack of Transportation (Medical): No Lack of Transportation (Non-Medical): No Physical Activity: Insufficiently Active (04/10/2023) Exercise Vital Sign Days of Exercise per Week: 1 day Minutes of Exercise per Session: 20 min Stress: No Stress Concern Present (11/11/2023) [employer] - Occupational Stress Questionnaire Feeling of Stress : Not at all Social Connections: Socially Integrated (11/11/2023) Social Connection and Isolation Panel [NHANES] Frequency of Communication with Friends and Family: More than three times a week Frequency of Social Gatherings with Friends and Family: More than three times a week Attends [employer] Services: More than 4 times per year Active Member of Clubs or Organizations: Yes Attends Club or Organization Meetings: More than 4 times per year Marital Status: Intimate Partner Violence: Not At Risk (01/06/2024) Humiliation, Afraid, Rape, and Kick questionnaire Fear of Current or Ex-Partner: No Emotionally Abused: No Physically Abused: No Sexually Abused: No Housing Stability: Unknown (01/06/2024) Housing Stability Vital Sign Unable to Pay for Housing in the Last Year: No Homeless in the Last Year: No SCREENINGS Phyll[place] Coma Scale Best Eye Response: Spontaneous Best Verbal Response: Oriented Best Motor Response: Follows commands [place] Coma Scale Score: 15 PHYSICAL EXAM ED Triage Vitals [01/28/24 1547] Temp Heart Rate Resp BP 36.9 C (98.4 F) 85 19 (!) 156/85 SpO2 Temp Source Heart Rate Source Patient Position 98 % Oral Monitor Sitting BP Location FiO2 (%) Left arm -- Constitutional: No acute distress HEENT:Head: Atraumatic Eyes: Conjunctivae normal. CV: RRR RESP: CTAB, good respiratory effort, no increased wob GI: Abdomen soft, non-tender, non-distended, +BS, no guarding or rebound tenderness. Suprapubic catheter in place with no surrounding erythmea MSK: Normal bulk and tone, no gross deformity BACK: No CVA tenderness EXTR: Warm and well perfused, no edema SKIN: No rash/bruising/erythema PSYCH: Appropriate affect, cooperative behavior NEURO: Alert, face symmetric, no slurred speech DIAGNOSTIC RESULTS Interpretation per the Radiologist below, if available at the time of this note: CT abdomen pelvis wo IV contrast Final Result 1. The bladder is distended approximately 16 cm with a suprapubic Lopez catheter present. There is abnormal wall thickening along the posterior aspect of the bladder, (differential malignancy versus chronic outlet obstruction inflammation). There is no clear fatty plane between the bladder and the prostate gland. The prostate gland is enlarged (TURP procedure 01/05/2024 with benign pathology). 2. There are enlarged abnormal lymph nodes to the right of the bladder and within the bilateral iliac chain measuring 1.9 cm and 2.2 cm, malignancy is not excluded 3. There is mild hydronephrosis. Bilateral perinephric stranding is present as well as stranding surrounding the bladder, superimposed infectious/inflammatory process not excluded. 4. Lumbar spine postsurgical changes. 5. Hepatic low attenuating lesions, probable cysts. 6. Colonic diverticulosis. 7. Additional findings, as above. Report Dictated on Electronically Signed By: Yuliya Lyle MD Electronically Signed Date/Time: 01/28/2024 5:15 PM EDT LABS: Labs Reviewed CBC WITH AUTO DIFFERENTIAL - Abnormal Result Value Auto WBC 12.0 (*) RBC 4.46 Hemoglobin 12.5 (*) Hematocrit 38.3 (*) MCV 85.9 MCH 28.0 MCHC 32.6 RDW 14.5 Platelets 311 MPV 9.6 nRBC 0.0 Neutrophils Relative 73.2 Lymphocytes Relative 18.4 Monocytes Relative 7.4 Eosinophils Relative 0.3 Basophils Relative 0.3 Immature Grans % 0.4 Neutrophils Absolute 8.8 (*) Lymphocytes Absolute 2.2 Monocytes Absolute 0.9 Eosinophils Absolute 0.0 Basophils Absolute 0.0 Immature Grans Absolute 0.1 (*) COMPREHENSIVE METABOLIC PANEL - Abnormal SODIUM 133 (*) POTASSIUM 4.5 CHLORIDE 97 (*) CARBON DIOXIDE 28 ANION GAP 9 UREA NITROGEN 26 (*) CREATININE 1.74 (*) GLUCOSE 135 (*) CALCIUM 9.0 AST (SGOT) 22 ALT 16 ALKALINE PHOSPHATASE 69 ALBUMIN 3.8 BILIRUBIN, TOTAL 0.8 TOTAL PROTEIN 7.2 eGFR 37.5 (*) COMPLETE URINALYSIS - Abnormal Color, Urine Yellow Clarity, Urine Extra Turbid (*) pH, Urine 6.5 Leukocytes, Urine 500 (*) Nitrite, Urine Negative Protein, Urine 200 (*) Glucose, Urine Normal Bilirubin, Urine Negative Ketones, Urine Negative Urobilinogen, Urine Normal Blood, Urine 1.0 (*) Volume, Urine QNS for accurate quantitation. RBC, Urine Present (*) WBC, Urine (*) Value: Grossly loaded, unable to identify any other formed elements. Squamous Epithelial, Urine Present (*) Bacteria, Urine Loaded (*) SPECIFIC GRAVITY OF URINE (NUMERIC) 1.014 LIPASE - Normal LIPASE 101 URINE CULTURE COMPLETE URINALYSIS WITH REFLEX TO CULTURE Narrative: The following orders were created for panel order Urinalysis Complete with reflex to Culture. Procedure Abnormality Status --------- ------ Complete Urinalysis[[id number]] Abnormal Final result Please view results for these tests on the individual orders. EMERGENCY DEPARTMENT COURSE and DIFFERENTIAL DIAGNOSIS/MDM: Vitals: Vitals: 01/28/24 1547 01/28/24 1611 01/28/24 1751 01/28/24 1837 BP: (!) 156/85 (!) 146/89 (!) 157/97 104/65 BP Location: Left arm Left arm Left arm Left arm Patient Position: Sitting Lying Lying Lying Pulse: 85 82 84 82 Resp: 19 18 17 16 Temp: 36.9 C (98.4 F) TempSrc: Oral SpO2: 98% 97% 95% 96% Weight: 91.2 kg (201 lb) Height: 1.778 m (5' 10) Medications acetaminophen (Tylenol) tablet 1,000 mg (1,000 mg Oral Not Given 01/28/24 170) oxyCODONE (Roxicodone) immediate release tablet 10 mg (10 mg Oral Given 01/28/24 171) cefTRIAXone (Rocephin) 1,000 mg in sodium chloride 0.9 % 50 mL IVPB Mini-Bag Plus (0 mg IntraVENous Stopped 01/28/24 183) I personally saw the patient and performed a substantive portion of the visit including all aspects of the medical decision making. Patient appears nontoxic and vital signs are normal. Bladder scan showed about 400 mL of urine in the bladder. Suprapubic catheter was irrigated and then 700 mL of urine came out. CMP shows stable elevated creatinine. Have no concern for RICHARD. CBC with slight leukocytosis of 12. Lipase is normal. Urinalysis concerning for UTI. CT abdomen pelvis showed a distended bladder with suprapubic urinary catheter in place. Numerous incidental findings. I discussed with Dr. Munson from urology. It is too soon for the catheter to be exchanged. He recommended antibiotics. Given ceftriaxone 1 g IV and then prescribed cefuroxime. Recommended urology follow-up as soon as possible. Discharged home in good condition. I discussed test results and plan with the patient. Diagnoses as of 01/28/241899 Acute cystitis without hematuria PROCEDURES: Unless otherwise noted below, none Procedures Patients symptoms are consistent with sepsis, severe sepsis, or septic shock (If yes use .sepsiscoremeasure): no FINAL IMPRESSION 1. Acute cystitis without hematuria DISPOSITION/PLAN Discharge 01/28/2024 06:00:13 PM PATIENT REFERRED TO: Sana Marcos, DO [address] [facility] [address] Schedule an appointment as soon as possible for a visit DISCHARGE MEDICATIONS: Discharge Medication List as of 01/28/2024 6:01 PM START taking these medications Details cefuroxime (Ceftin) 500 MG tablet Take 1 tablet (500 mg) by mouth 2 times daily for 7 days., Starting Fri01/28/2024, Until Fri02/04/2024, Normal (Please note: Portions of this note were completed with a voice recognition program. Efforts were made to edit the dictations but occasionally words and phrases are mis-transcribed.) Andres Servin MD SO Emergency Medicine Physician Acute [facility] Andres Servin MD 01/28/241899 [facility] 01-28-2024 Note Spoke with pt and hi s . Advised pt that they would need to go the ED for evaluation. Pt is stating that he has a slight fever at 99.0 and having pain. Voiced understanding. [facility] 01-19-2024 Telephone encounter Note Notified. [facility] 01-19-2024 Miscellaneous Notes Notified. Diagnosis code on the previous x-ray order was R06.2 Wheezing, 2 views would be okay Images from the original note were not included. Message released to patient as written. Hermann Damian MD 01/19/24 8:02 AM Note Yes, it can be changed to a portable Patient's further questions if applicable: Char is wanting to know if pcp has a diagnosis code for order and how many views should xray be. Please advise. Were all questions from office addressed or relayed to the patient from encounter: N/A Called [facility] home, , it went to a . I called Bella at [phone] and left a message to call the office. Yes, it can be changed to a portable Name of caller: Char hcristie/ [facility] Contact phone number: [phone] Relationship to Patient: [facility] Provider: Dr. Damian Practice: [facility] Chief Complaint/Reason for Call: x-ray not completed because he was not informed of when it was scheduled. Home care wants to know if x-ray can be changed to portable x-ray. Verbal order or fax [phone]. Please advise. Best time of day caller can be reached: any Patient advised that office/PCP has 24-48 business hours to return their call: Yes Bella notified and orders faxed. Order for chest x-ray, nebulizer with tubing and albuterol solution printed to fax. Name of caller: Bella Contact phone number: [phone] Relationship to Patient: [facility] Nurse Provider: Rickie Practice: [facility] Chief Complaint/Reason for Call: Bella calling and asking for chest x-ray. Pt has some wheezing. Also possibly a nebulizer. Pt does have an inhaler, O2 was 94% at room air. Pt has an appointment on at [facility] and can have X-Ray done at that time. Please Advise. Best time of day caller can be reached: Any Patient advised that office/PCP has 24-48 business hours to return their call: Yes documented in this encounter [facility] 01-19-2024 Telephone encounter Note Diagnosis code on the previous x-ray order was R06.2 Wheezing, 2 views would be okay [facility] 01-19-2024 Telephone encounter Note Images from the original note were not included. Message released to patient as written. Hermann Damian MD 01/19/24 8:02 AM Note Yes, it can be changed to a portable Patient's further questions if applicable: Char is wanting to know if pcp has a diagnosis code for order and how many views should xray be. Please advise. Were all questions from office addressed or relayed to the patient from encounter: N/A [facility] 01-19-2024 Telephone encounter Note Called [facility] home, , it went to a . I called Bella at [phone] and left a message to call the office. [facility] 01-19-2024 Telephone encounter Note Yes, it can be changed to a portable [facility] 01-16-2024 Telephone encounter Note Name of caller: Char christie/ [facility] Contact phone number: [phone] Relationship to Patient: [facility] Provider: Dr. Damian Practice: [facility] Chief Complaint/Reason for Call: x-ray not completed because he was not informed of when it was scheduled. Home care wants to know if x-ray can be changed to portable x-ray. Verbal order or fax [phone]. Please advise. Best time of day caller can be reached: any Patient advised that office/PCP has 24-48 business hours to return their call: Yes [facility] 01-16-2024 Miscellaneous Notes Name of caller: Char [facility] at Home Contact phone number: [phone] Relationship to Patient: [facility] Provider: Dr. Damian Practice: [facility] Chief Complaint/Reason for Call: x-ray not completed because he was not informed of when it was scheduled. Home care wants to know if x-ray can be changed to portable x-ray. Verbal order or fax [phone]. Please advise. Best time of day caller can be reached: any Patient advised that office/PCP has 24-48 business hours to return their call: Yes Bella notified and orders faxed. Order for chest x-ray, nebulizer with tubing and albuterol solution printed to fax. Name of caller: Bella Contact phone number: [phone] Relationship to Patient: [facility] Nurse Provider: Rickie Practice: [facility] Chief Complaint/Reason for Call: Bella calling and asking for chest x-ray. Pt has some wheezing. Also possibly a nebulizer. Pt does have an inhaler, O2 was 94% at room air. Pt has an appointment on at [facility] and can have X-Ray done at that time. Please Advise. Best time of day caller can be reached: Any Patient advised that office/PCP has 24-48 business hours to return their call: Yes documented in this encounter [facility] 01-13-2024 Telephone encounter Note Bella notified and orders faxed. [facility] 01-13-2024 Telephone encounter Note Order for chest x-ray, nebulizer with tubing and albuterol solution printed to fax. [facility] 01-13-2024 Telephone encounter Note Name of caller: Bella Contact phone number: [phone] Relationship to Patient: [facility] Nurse Provider: Rickie Practice: [facility] Chief Complaint/Reason for Call: Bella calling and asking for chest x-ray. Pt has some wheezing. Also possibly a nebulizer. Pt does have an inhaler, O2 was 94% at room air. Pt has an appointment on at [facility] and can have X-Ray done at that time. Please Advise. Best time of day caller can be reached: Any Patient advised that office/PCP has 24-48 business hours to return their call: Yes [facility] 01-06-2024 Plan of care note Problem: Pain - Adult Goal: Verbalizes/displays adequate comfort level or baseline comfort level Outcome: Progressing Problem: Safety - Adult Goal: Free from fall injury Outcome: Progressing Problem: Discharge Planning Goal: Discharge to home or other facility with appropriate resources Outcome: Progressing Problem: Skin/Tissue Integrity - Adult Goal: Incisions, wounds, or drain sites healing without S/S of infection Outcome: Progressing Problem: Genitourinary - Adult Goal: Urinary catheter remains patent Outcome: Progressing [facility] 01-06-2024 Miscellaneous Notes Problem: Pain - Adult Goal: Verbalizes/displays adequate comfort level or baseline comfort level Outcome: Progressing Problem: Safety - Adult Goal: Free from fall injury Outcome: Progressing Problem: Discharge Planning Goal: Discharge to home or other facility with appropriate resources Outcome: Progressing Problem: Skin/Tissue Integrity - Adult Goal: Incisions, wounds, or drain sites healing without S/S of infection Outcome: Progressing Problem: Genitourinary - Adult Goal: Urinary catheter remains patent Outcome: Progressing TCC informed SW that Pt in need of transport home, family not able to provide transport. SW phone call w / [facility] Care provider [facility] and inquired upon Pt's transport benefits. SW scheduled wheelchair transport through [employer]. SW met w /Pt to inform of transport plans, bedside nurse was present in the room and was on the phone w / Pt's Dtr, informed SW that Pt was worried about possible transportation cost, Pt's Dtr is able to transport Pt home after all. Pt confirmed this information. SW cancelled transport in [employer]. SW called [facility] w / [facility] transport and cancelled scheduled transport. Patient Choice Patient Name: CIRO SALES Date of : 1935 All Providers Sent Referral Name: [facility] [employer] [facility] Phone: [phone] Address: [address] [place] [address] Care Managment Initial Assessment Date: 01/06/2024 Patient Name: Ciro Sales : 1935 Patient Information Source of Information: Patient Cognition/Language: WFL - Within Functional Limits Permission given to speak with patient self pay representative/caregiver as indicated: Confirmation of Payer with patient/family: Yes Payer Name: [employer] Medicare [place]: No Confirmation of Primary Care Physician: Confirmed PCP Name: Hermann Damian Seen in last 2 years?: Yes Primary Caregiver: Self If assistance needed, confirmed caregiver ready, willing and able to care for patient at discharge: Confirmed with: Living Arrangements Current Residence: House Number of Floors 1 Number of Entry Steps: 3 Bed/Bath Levels: Both first floor Facility: Facility Name: Plan to Return: Lives with: Spouse/significant other Support Systems: Spouse/significant other, Children, Family members, Friends/neighbors Activities of Daily Living Ambulation: Independent (has cane, walker at home if needed) Bathing/Dressing: Independent Elimination/Continence/Toileting: Independent Feeding: Independent Who Assists with Activities of Daily Living: Instrumental Activities of Daily Living Prescription Coverage: Yes Pharmacy Used: [facility] Medication Management: Independent Transportation/Shopping: Independent Transportation Mode: Car Needs Assistance with Transportation at Discharge: No (son will transport) Meal Preparation: Independent Laundry/Cleaning: Assistance Provider Laundry/Cleaning Assistance Provider Name: spouse Finances/Bill Paying: Independent Communication: Independent Types of Care Services/Equipment Utilized Care Services: Dialysis Type: Durable Medical Equipment: Cane, Walker Patient's Goal/Discharge Plan Patient expects to be discharged to: home with spouse and home care Discharge Planning Actions: Continue to follow Patient's Choice Rights and [employer] and Collaborative Relationships Disclosed as Indicated for Post-Acute Care: Interdisciplinary Team Engagement: Social Work Referral for: Additional Information: 88 yo male assigned to observation status for surgery on 01/05/24: Cystscopy, TURP and creation of suprapubic tube. Pt underwent CBI treatments last night. He will be going home with lopez catheter. SP tube has been capped. Met with pt at bedside; explained role of tcc. Pt lives with his . He is independent adls. He uses cane and walker prn. Discussed pt going home with catheter and he is agreeable to home care. HCL Lesa has been made aware. Anticipate discharge to home later today vs tomorrow if medically stable. Thalia Sow RN SW met w /Pt, introduced self, explained role, and informed of [facility] and [employer] [facility] resources. Pt thanked MICHAEL for information, stated he used [facility] service 1x in past and would be interested in using again. Pt stated his Dtr will provide transport at discharge. Pt stated his has Hx of brain tumors, they are growing back, she has a scheduled follow up MRI later this month, and their children are able to provide assistance. Pt reported no other issues for to address at this time. Start PACC Note Home Health Referral Educated patient on Home Care and services available. Patient offered choice of available HHC and agreeable to SN/PT services with [facility] at Home - Home Care. Care Types: None Isolation Precautions: No active isolations Social Determinates of Health: Tobacco Use: Low Risk (12/29/2023) Patient History Smoking Tobacco Use: Never Smokeless Tobacco Use: Never Passive Exposure: Not on file Social History Substance and Sexual Activity Alcohol Use Yes Comment: 3-4 per year Social History Substance and Sexual Activity Drug Use No Does the patient have any financial resource strain? No Does the patient have any food insecurities? No Does the patient have any housing instabilities? No If any of the above is noted as yes - consider a STONEMASON SUPERVISOR evaluation once the patient returns home. START PATIENT REGISTRATION INFORMATION Order Information Order Signing Physician: Sana Marcos, DO Service Ordered RN ?: Yes Service Ordered PT ?: Yes Service Ordered OT ?: No Service Ordered ST ?: No Service Ordered STONEMASON SUPERVISOR?:No Service Ordered DENTISTRY TEACHER?: No Following Physician: Hermann Damian MD Following Physician Overseeing Physician: Hermann Damian MD (Required for Residents only) Agreeable to Follow? Yes Date/Time of Call 01/06/24 11:45 AM, Spoke with: pcp directly via secure chat. Care Coordination Same Day SOC?: No Primary Care Physician: Hermann Damian MD Primary Care Physician Primary Care Physician Address: [address] [place] [address] Visit Instructions: N/A Service Discharge Location Type: Home with Home Care Service Facility Name: N/A Service Floor Facility: N/A Service Room No: N/A Demographics Patient Last Name: Stephan Patient First Name: Ciro Language/Communication Barrier: na Service Address: [address] [place] [address] Service City: [email or web address] ST: [place] Service ZIP: [address] Service (home) Other phone numbers: [phone] Telephone Information: Emergency Contact: Extended Emergency Contact Information Primary Emergency Contact: Manju Sales Address: [address] [place] [address] Mobile Relation: Spouse Admission Information Admit Date: 01/05/2024 Patient status at discharge: Observation Admitting Diagnosis: Benign prostatic hyperplasia with lower urinary tract symptoms [N40.1] Retention of urine, unspecified [R33.9] BPH with obstruction/lower urinary tract symptoms [N40.1, N13.8] Caregiver Information Caregiver First Name: self Caregiver Last Name: self Caregiver Relationship to Patient self Caregiver Phone Number: na Caregiver Notes: N/A [facility]: Sociall TECH - NEXT DAY REQUEST Requests Next Available SOC/MARLI END PATIENT REGISTRATION INFORMATION Pt Home Health goal TBD COVID Status 1. Do you have any upper respiratory symptoms (cough, SOB, Fever)? No 2. Have you been exposed to anyone with COVID-19 Virus? No Answer only if pending or positive for COVID-19? 1. Agreeable to wear PPE at each visit? No 2. Is the hospital supplying them with PPE upon Discharge? No Start PACC Summary General Report/ Additional Comments Home with lopez catheter and suprapubic catheter. Suprapubic capped. Discharge Date: pending Referral Source-PACC: (Hospital/Unit): [facility] / 5130/-5130 A End PACC Note Problem: Pain - Adult Goal: Verbalizes/displays adequate comfort level or baseline comfort level Outcome: Progressing Problem: Safety - Adult Goal: Free from fall injury Outcome: Progressing Problem: Discharge Planning Goal: Discharge to home or other facility with appropriate resources Outcome: Progressing Problem: Skin/Tissue Integrity - Adult Goal: Incisions, wounds, or drain sites healing without S/S of infection Outcome: Progressing Problem: Genitourinary - Adult Goal: Urinary catheter remains patent Outcome: Progressing Updated patient family on delay. Notified them of patient going to room Patient family/visitor updated by RN at this time. Update to son Yobany via phone call, will meet patient in room 5130 documented in this encounter [facility] 01-06-2024 Note Formatting of this n ote might be different from the original. TCC informed SW that Pt in need of transport home, family not able to provide transport. SW phone call w / [facility] provider [facility] and inquired upon Pt's transport benefits. SW scheduled wheelchair transport through [employer]. SW met w /Pt to inform of transport plans, bedside nurse was present in the room and was on the phone w / Pt's Dtr, informed SW that Pt was worried about possible transportation cost, Pt's Dtr is able to transport Pt home after all. Pt confirmed this information. SW cancelled transport in [employer]. SW called [facility] christie / [facility] transport and cancelled scheduled transport. [facility] 01-06-2024 Note Formatting of this n ote might be different from the original. TCC informed SW that Pt in need of transport home, family not able to provide transport. SW phone call w / [facility] provider [facility] and inquired upon Pt's transport benefits. SW scheduled wheelchair transport through [employer]. SW met w /Pt to inform of transport plans, bedside nurse was present in the room and was on the phone w / Pt's Dtr, informed SW that Pt was worried about possible transportation cost, Pt's Dtr is able to transport Pt home after all. Pt confirmed this information. SW cancelled transport in [employer]. SW called [facility] christie / [facility] transport and cancelled scheduled transport. [facility] 01-06-2024 Note Formatting of this n ote might be different from the original. Patient Choice Patient Name: CIRO SALES Date of : 1935 All Providers Sent Referral Name: [facility] At [facility] Phone: [phone] Address: [address] [place] [address] [facility] 01-06-2024 Note Formatting of this n ote might be different from the original. Patient Choice Patient Name: CIRO SALES Date of : 1935 All Providers Sent Referral Name: [facility] Phone: [phone] Address: [address] [place] [address] [facility] 01-06-2024 Hospital Discharge instructions Mc Jiménez MD - 01/06/2024 2:58 PM EDT Images from the original note were not included. Transurethral Resection of the Prostate (TURP) What is Benign Prostatic Hyperplasia (BPH)? When the prostate becomes enlarged, it can press on the urethra and make it difficult to urinate. Symptoms of BPH include a weak urinary stream, difficulty emptying your bladder, frequent urinary tract infections, bleeding from the prostate, bladder stones, getting up a night to urinate and bladder control issues. If your symptoms have not improved with home treatment or medications, your doctor may recommend surgery. Men who have severe symptoms often report greatly improved quality of life after surgery. What is a TURP? A TURP is a surgery to remove part of the prostate gland when it becomes enlarged. If you have BPH, a TURP can help you urinate more easily. How is it performed? A resectoscope is inserted into the end of the penis and up through the urethra. This scope is then used to remove the portion of the prostate that is causing a blockage, either by directly cutting it away or burning it away with a laser. The entire procedure takes approximately 1-2 hours. How long will I be in the hospital? This is an outpatient procedure, so you may be able to go home the same day as the surgery however most people spend one night in the hospital What are the possible complications of TURP? All surgeries carry the risk of bleeding, infection, blood clots, breathing problems, or heart attack while under anesthesia. In addition, a TURP can cause retrograde ejaculation, loss of fertility, uretheral stricture, and in very rare instances, incontinence. About 2% of men may need a repeat procedure within 3 years. Before Surgery: - A packet of information will be sent to you. It contains helpful information, details about how to prepare for surgery, and where to arrive on the day of surgery. Maps and local hotel information are sent to persons from out of town. If you have questions or have not received this information, please call our office at . - Most patients having surgery will need a physical completed to clear them medically for surgery. Pre-operative testing is completed approx. 1-2 weeks before your planned surgery. These tests will be done either at your pre-operative day at [facility], [facility], or with your regular doctor. - Some patients may require additional testing such as a stress test or cardiac clearance. - At the time of your pre-operative visit the following tests may be completed: Blood work, an EKG, and/ or a Chest X-ray - The day before your surgery you will need to call the surgical scheduling office to confirm your arrival time. - Do NOT eat or drink anything after midnight the night before your surgery. Medications: - Your information packet will contain a list of medications that need to be stopped before surgery. - Do not take Aspirin, Motrin or Ibuprofen for 2 weeks before surgery. - Stop taking all herbal remedies 2 weeks before your surgery. - Please make certain that we know if you take medication that affected bleeding or is a blood thinner. Examples of these include Coumadin, Warfarin or Plavix. A safe plan will need to be made about how and when you take this medication near the time of your surgery. The Day of Surgery - Please report to the designated area at your confirmed arrival time. - Before you are taken to the operating room, you will change into a gown and have an IV started. - An anesthesiologist will come speak with you about the surgery and answer any questions that you may have. - Your family may stay with you in the pre-op area until you are taken to the operating room. Home Going Instructions: Lopez Catheter: You will go home with a Lopez catheter in place for 3-10 days. The catheter helps keep your bladder decompressed so that the prostate can heal. It is normal to have blood in the urine right after surgery. Drink plenty of fluids to flush this through. The blood should clear up within a week, but in some instances may persist for 1-2 months after surgery. Activity: You are encouraged to walk every day, increasing the distance each day. You may go up and down steps, but please rest when you are tired. - Do NOT drive for 1-2 weeks after surgery or until you are not taking pain medications. You may ride in a car or plane. Be sure to get up and walk every 1-2 hours when traveling long distances. - Avoid strenuous activity for 2-4 weeks after surgery (running, jumping, lifting more than 10 lbs.) Diet and Fluid Intake: Eating a well-balanced diet is important. If you were on a specific diet before your surgery, you should return to that diet. Otherwise, there are no diet restrictions after surgery. Do NOT drink alcoholic beverages while taking pain medications. Drink at least 8 glasses of fluid per day, preferably water. Bowel Management: Constipation sometimes occurs after surgery, especially when taking pain medication. Eating a well-balanced diet and maintaining a good fluid intake are often all that is necessary to return to you pre-surgical bowel regimen. It is important not to strain excessively when having a bowel movement for the first several weeks following your surgery. A stool softener such as Colace may be helpful. You can purchase stool softeners without a prescription at your local drug store. If a stool softener is not enough to relieve your constipation, you may try taking Milk of Magnesia. You may use over the counter medicine, such a Gas-X, if you experience gas pains after surgery. Showering: You may shower when you get home from the hospital. Pain Medications: Your doctor may prescribe the appropriate pain medication for you. Take these pills only as directed and only if you need them. If you are experiencing mild discomfort, you may take Tylenol or Ibuprofen. NEVER mix alcohol with prescription pain medications. Pain medication may make you drowsy. Do not take pain medication when doing any activity that requires coordination, such as driving. Infection: Report the following warning signs of infection to your doctor immediately: A temperature of 101 degrees or greater Increased redness, swelling or drainage at the incision site Sudden onset of increased pain or tenderness or warmth around the incision Foul odor from the incision site. Miscellaneous It is normal for you to have minor discomfort after your surgery. However, if there are any significant changes in your condition--such as shortness of breath, difficulty breathing, or pain or uneven swelling in your legs--please go to the Emergency Room. Return to Work: If you work in an office and are not lifting or doing strenuous activity, you may return to work when comfortable. If your work involves strenuous activity, you may need more time before returning to work. If necessary, our office can provide a letter stating the date that you may return to work. Follow-up Appointments Follow-up appointments will be scheduled by our office If you have any questions, please call . CANDYLESA - 01/06/2024 11:27 AM EDT Images from the original note were not included. Continuity of Care Form Patient Name: Ciro Sales : 1935 Admit date: 01/05/2024 Discharge date: Code Status Order: Full Code Advance Directives: Y Admitting Physician: Sana Marcos DO PCP: Hermann Damian MD Discharging Nurse: Discharging Hospital Unit/Room#: H-5130/H-5130 A Discharging Unit Phone Number: Emergency Contact: Extended Emergency Contact Information Primary Emergency Contact: StephanManju [address]: [address] [place] [address] Mobile Relation: Spouse Past Surgical History: Past Surgical History: Procedure Laterality Date CATARACT EXTRACTION Right COLONOSCOPY HEMORRHOID SURGERY 1999 SH[facility] HERNIA REPAIR Right inguinal LAMINECTOMY 07/31/2023 L2, L3, L4, L5 laminectomy L4-L5 fusion NOSE SURGERY A KID OTHER SURGICAL HISTORY TURP UMBILICAL HERNIA REPAIR 05/28/2019 Immunization History: Immunization History Administered Date(s) Administered Hep A, ped/adol, 2 dose 10/13/2007, 04/18/2008 Hep B, adult 10/13/2007, 11/16/2007, 04/18/2008 Influenza, High-dose Seasonal, Quadrivalent, Preservative Free 04/11/2020, 03/20/2021 Moderna SARS-CoV-2 Vaccination 06/21/2020, 08/04/2020 Pneumococcal Conjugate PCV 13 02/27/2017 Pneumococcal Polysaccharide PPSV23 04/06/2018 Td (adult), unspecified 12/21/2002 Tdap 04/06/2018 Typhoid, Parenteral 10/13/2007 Typhoid, ViCPs 10/13/2007 Zoster, Recombinant 08/11/2018, 10/15/2018 Active Problems: Medical Problems Problem List * (Principal) BPH with obstruction/lower urinary tract symptoms Osteoarthritis of right hip Chronic kidney disease, stage 3a (HCC) Sebaceous cyst Chronic cough Post-nasal drainage OAB (overactive bladder) Chronic rhinitis Dermatitis Bilateral lower extremity edema Spinal stenosis Constipation Obesity, Class I, BMI 30-34.9 Renal insufficiency Urinary retention Anemia Hypoxia Acute pulmonary embolism (HCC) Sinus congestion Delayed emergence from anesthesia Hyperlipidemia Elevated PSA, between 10 and less than 20 ng/ml Urge incontinence Allergic rhinitis Prediabetes Basal cell carcinoma of nose Trigger finger, left ring finger Greater trochanteric bursitis of right hip Rotator cuff tendinitis, left Essential hypertension, benign Umbilical hernia without obstruction and without gangrene Benign head tremor Isolation/Infection: No active isolations No active infections Nurse Assessment: Last Vital Signs: BP 139/73 (BP Location: Left arm, Patient Position: Sitting) Pulse 75 Temp 37 C (98.6 F) (Temporal) Resp 14 Ht 1.778 m (5' 10) Wt 95.3 kg (210 lb) SpO2 92% BMI 30.13 kg/m Last documented pain score (0-10 scale): Last Weight: Wt Readings from Last 1 Encounters: 01/05/24 95.3 kg (210 lb) Mental Status: {JENNIFFER Patient Mental Status:73383} IV Access: {JENNIFFER IV Access:58545} Nursing Mobility/ADLs: Walking {ADELA ADL:27146::Independent} Transfer {ADELA ADL:76215::Independent} Bathing {ADELA ADL:05975::Independent} Dressing {ADELA ADL:68632::Independent} Toileting {ADELA ADL:81153::Independent} Feeding {ADELA ADL:93549::Independent} Software Applications Architect {ADELA ADL:73774::Independent} Med Delivery {yes/no:97304} Wound Care Documentation and Therapy: Wound/Incision 07/31/23 Incision Back Midline (Active) Number of days: 159 Wound/Incision 10/03/23 Other (comment) Coccyx (Active) Number of days: 94 Wound/Incision Incision Pelvis Anterior (Active) Site Assessment Clean 01/05/242199 Josefina-Wound Assessment Clean 01/05/24 1300 Odor None 01/05/24 1413 Drainage Amount None 01/05/24 1413 Primary Dressing Dry dressing 01/05/242199 Dressing Status Clean, dry & intact 01/05/242199 Number of days: Elimination: Continence: Bowel: {yes/no:36109} Bladder: {yes/no:94435} Urinary Catheter: {JENNIFFER Urinary Catheter:65132} Colostomy/Ileostomy/Ileal Conduit: {YES / NO:99807} Suprapubic Catheter-Site Assessment: Clean, Intact Date of Last BM: Intake/Output Summary (Last 24 hours) at 01/06/2024 1127 Last data filed at 01/06/2024 1006 Gross per 24 hour Intake 746.67 ml Output 1010 ml Net -263.33 ml I/O last 3 completed shifts: In: 1383.7 (14.5 mL/kg) [I.V.:1324.7 (13.9 mL/kg); IV Piggyback:59] Out: 4110 (43.1 mL/kg) [Urine:4010 (1.2 mL/kg/hr); Blood:100] Weight: 95.3 kg Safety Concerns: {JENNIFFER Safety Concerns:79949} Impairments/Disabilities: {JENNIFFER Impairments/Disabilities:50640} Nutrition Therapy: Current Nutrition Therapy: {JENNIFFER Diet List:80155} Routes of Feeding: {routes of feedin} Liquids: {liquid consistency:32046} Daily Fluid Restriction: {daily fluid restriction:78958} Last Modified Barium Swallow with Video (Video Swallowing Test): {done not done:40169} Treatments at the Time of Hospital Discharge: Respiratory Treatments: Oxygen Therapy: {Therapy; copd oxygen:31021} Ventilator: {JENNIFFER Ventilator:59913} Rehab Therapies: {GEN THERAPY DISCIPLINE SCAL:1641112} Weight Bearing Status/Restrictions: {POD WEIGHT BEARIN} Other Medical Equipment (for information only, NOT a DME order): {Assistive Devices DME:80351} Other Treatments: Patient's personal belongings (please select all that are sent with patient): {JENNIFFER Patient Belongings:06925} RN SIGNATURE: {E-signature:11797} CASE MANAGEMENT/SOCIAL WORK SECTION Inpatient Status Date: Discharging to Facility/ Agency Name: [facility] Address: [address] [place] [address] Dialysis Facility (if applicable) Name: Address: Dialysis Schedule: Phone: Fax: Vest Maker/Morgue Keeper signature: {E-signature:86180} PHYSICIAN SECTION Name: Ciro Sales Prognosis: {Rehab Prognosis:03121} Condition at Discharge: {Patient Condition:28689} Rehab Potential (if transferring to Rehab): {Rehab Prognosis:58342} Recommended Labs or Other Treatments After Discharge: The individual is being admitted to a nursing facility directly from an [facility] or a unit of a [facility] that is not operated by or licensed by [facility] under section 5119.14 or 5160-3-15.1 5 The individual requires the level of services provided by a nursing facility for the condition for which he or she was treated in the hospital and, Physician Certification: I certify the above information and transfer of Ciro Sales is necessary for the continuing treatment of the diagnosis listed and that he requires {JENNIFFER Level of Care:68898} for {greater less than:74319} 30 days. Update Admission H&P: {JENNIFFER Changes in H&P:35225} PHYSICIAN SIGNATURE: {E-signature:12770} The following attachments cannot be sent through Care Everywhere.Suprapubic Cystostomy (Nauruan)documented in this encounter [facility] 01-06-2024 Note Discharge Summary Ciro Sales : 1935 ADMIT DATE: 01/05/2024 DISCHARGE DATE: 01/06/2024 PRIMARY CARE PHYSICIAN: Hermann Damian VISIT STATUS: Observation CODE STATUS: Full Code DISCHARGE DIAGNOSES: Principal Problem: BPH with obstruction/lower urinary tract symptoms HOSPITAL COURSE: Patient was admitted following cystoscopy, TURP, and insertion of SPT. On POD#1, pain remained well controlled. Patient was ambulating and tolerating a diet. Suprapubic catheter was clamped. Urine remained faint pink and urethral catheter third port was capped. He was discharged in stable condition. SIGNIFICANT DIAGNOSTIC STUDIES: None. CONSULTANTS: None. RECOMMENDED NEXT STEPS: Follow up with Dr. Marcos DISCHARGE MEDICATIONS: Medication List START taking these medications oxyCODONE-acetaminophen 5-325 MG tablet Commonly known as: Percocet Take 1 tablet by mouth every 6 hours as needed for severe pain (7-10) for up to 5 days. CONTINUE taking these medications ASCORBIC ACID PO CALCIUM CITRATE + PO CENTRUM SILVER 50+MEN PO CHOLECALCIFEROL PO ciclopirox 0.77 % cream Commonly known as: Loprox Apply topically 2 times daily x4 weeks to affected toenails famotidine 20 MG tablet Commonly known as: Pepcid finasteride 5 MG tablet Commonly known as: Proscar Take 1 tablet (5 mg) by mouth daily. Do not crush, chew, or split. fluticasone 50 MCG/ACT nasal spray Commonly known as: Flonase Administer 2 sprays into each nostril daily. Shake gently. Before first use, prime pump. After use, clean tip and replace cap. guaiFENesin 600 MG 12 hr tablet Commonly known as: Mucinex Take 1 tablet (600 mg) by mouth 2 times daily. Do not crush, chew, or split. NON FORMULARY pantoprazole 40 MG EC tablet Commonly known as: ProtoNix polyethylene glycol (PEG) 3350 17 GM/SCOOP powder Commonly known as: MiraLax Take 17 g by mouth daily. valsartan 40 MG tablet Commonly known as: Diovan Take 1 tablet (40 mg) by mouth daily. Xarelto 20 MG tablet Generic drug: rivaroxaban Take 1 tablet (20 mg) by mouth daily. Take with food. Do not start before January 07, 2024. Start taking on: January 07, 2024 ASK your doctor about these medications senna-docusate sodium 8.6-50 MG tablet Commonly known as: Senokot-S Take 1 tablet by mouth Daily as needed for constipation (if no bowel movement in 3 days). Where to Get Your Medications These medications were sent to [facility] [address] [place], [place] [id number] Hours: Friday to Friday 10 am to 6 pm oxyCODONE-acetaminophen 5-325 MG tablet Xarelto 20 MG tablet DIET: Adult diet Regular ACTIVITY: no walking restrictions, lifting restricted to 10lbs for 4 weeks COMPLEXITY OF FOLLOW UP: [x] Moderate Complexity: follow up within 7-14 calendar days (64603) [] Severe Complexity: follow up within 7 calendar days (10093) FOLLOW UP TESTING, PENDING RESULTS OR REFERRALS AT TRANSITIONAL CARE VISIT: [x] Yes [] No PENDING STUDIES: Surgical pathology DISPOSITION: Home FACILITY/HOME CARE AGENCY NAME: None Follow up with Dr. Marcos INSTRUCTIONS TO MA/SW: Please call patient on day after discharge (must document patient contacted within 2 business days of discharge). FOLLOW UP QUESTIONS FOR MA/SW: 1. Did you get medications filled and taking them as instructed from discharge? 2. Are you following your discharge instructions from your hospital stay? 3. Please confirm patient is scheduled for a follow up appointment within the above time frame. DISCHARGE TIME: < 30 minutes SIGNED: Karl Bustamante MD (PGY-5) 01/06/2024, 2:55 PM [facility] 01-06-2024 Note Formatting of this n ote might be different from the original. Care Managment Initial Assessment Date: 01/06/2024 Patient Name: Ciro Sales : 1935 Patient Information Source of Information: Patient Cognition/Language: WFL - Within Functional Limits Permission given to speak with patient self pay representative/caregiver as indicated: Confirmation of Payer with patient/family: Yes Payer Name: [employer] Medicare : No Confirmation of Primary Care Physician: Confirmed PCP Name: Hermann Damian Seen in last 2 years?: Yes Primary Caregiver: Self If assistance needed, confirmed caregiver ready, willing and able to care for patient at discharge: Confirmed with: Living Arrangements Current Residence: House Number of Floors 1 Number of Entry Steps: 3 Bed/Bath Levels: Both first floor Facility: Facility Name: Plan to Return: Lives with: Spouse/significant other Support Systems: Spouse/significant other, Children, Family members, Friends/neighbors Activities of Daily Living Ambulation: Independent (has cane, walker at home if needed) Bathing/Dressing: Independent Elimination/Continence/Toileting: Independent Feeding: Independent Who Assists with Activities of Daily Living: Instrumental Activities of Daily Living Prescription Coverage: Yes [facility] Medication Management: Independent Transportation/Shopping: Independent Transportation Mode: Car Needs Assistance with Transportation at Discharge: No (son will transport) Meal Preparation: Independent Laundry/Cleaning: Assistance Provider Laundry/Cleaning Assistance Provider Name: spouse Finances/Bill Paying: Independent Communication: Independent Types of Care Services/Equipment Utilized Care Services: Dialysis Type: Durable Medical Equipment: Cane, Walker Patient's Goal/Discharge Plan Patient expects to be discharged to: home with spouse and home care Discharge Planning Actions: Continue to follow Patient's Choice Rights and [employer] and Collaborative Relationships Disclosed as Indicated for Post-Acute Care: Interdisciplinary Team Engagement: Social Work Referral for: Additional Information: 88 yo male assigned to observation status for surgery on 01/05/24: Cystscopy, TURP and creation of suprapubic tube. Pt underwent CBI treatments last night. He will be going home with lopez catheter. SP tube has been capped. Met with pt at bedside; explained role of tcc. Pt lives with his . He is independent adls. He uses cane and walker prn. Discussed pt going home with catheter and he is agreeable to home care. AXEL Wagner has been made aware. Anticipate discharge to home later today vs tomorrow if medically stable. Thalia Sow RN [facility] 01-06-2024 Note Formatting of this n ote might be different from the original. Care Managment Initial Assessment Date: 01/06/2024 Patient Name: Ciro Sales : 1935 Patient Information Source of Information: Patient Cognition/Language: WFL - Within Functional Limits Permission given to speak with patient self pay representative/caregiver as indicated: Confirmation of Payer with patient/family: Yes Payer Name: [employer] Medicare : No Confirmation of Primary Care Physician: Confirmed PCP Name: Hermann Damian Seen in last 2 years?: Yes Primary Caregiver: Self If assistance needed, confirmed caregiver ready, willing and able to care for patient at discharge: Confirmed with: Living Arrangements Current Residence: House Number of Floors 1 Number of Entry Steps: 3 Bed/Bath Levels: Both first floor Facility: Facility Name: Plan to Return: Lives with: Spouse/significant other Support Systems: Spouse/significant other, Children, Family members, Friends/neighbors Activities of Daily Living Ambulation: Independent (has cane, walker at home if needed) Bathing/Dressing: Independent Elimination/Continence/Toileting: Independent Feeding: Independent Who Assists with Activities of Daily Living: Instrumental Activities of Daily Living Prescription Coverage: Yes [facility] Medication Management: Independent Transportation/Shopping: Independent Transportation Mode: Car Needs Assistance with Transportation at Discharge: No (son will transport) Meal Preparation: Independent Laundry/Cleaning: Assistance Provider Laundry/Cleaning Assistance Provider Name: spouse Finances/Bill Paying: Independent Communication: Independent Types of Care Services/Equipment Utilized Care Services: Dialysis Type: Durable Medical Equipment: Cane, Walker Patient's Goal/Discharge Plan Patient expects to be discharged to: home with spouse and home care Discharge Planning Actions: Continue to follow Patient's Choice Rights and [employer] and Collaborative Relationships Disclosed as Indicated for Post-Acute Care: Interdisciplinary Team Engagement: Social Work Referral for: Additional Information: 88 yo male assigned to observation status for surgery on 01/05/24: Cystscopy, TURP and creation of suprapubic tube. Pt underwent CBI treatments last night. He will be going home with lopez catheter. SP tube has been capped. Met with pt at bedside; explained role of tcc. Pt lives with his . He is independent adls. He uses cane and walker prn. Discussed pt going home with catheter and he is agreeable to home care. AXEL Wagner has been made aware. Anticipate discharge to home later today vs tomorrow if medically stable. Thalia Magi, RN [facility] 01-06-2024 Note Formatting of this n ote might be different from the original. SW met w /Pt, introduced self, explained role, and informed of [facility] and [facility] resources. Pt thanked MICHAEL for information, stated he used [facility] service 1x in past and would be interested in using again. Pt stated his Dtr will provide transport at discharge. Pt stated his has Hx of brain tumors, they are growing back, she has a scheduled follow up MRI later this month, and their children are able to provide assistance. Pt reported no other issues for MICHAEL to address at this time. [facility] 01-06-2024 Note Formatting of this n ote might be different from the original. SW met w /Pt, introduced self, explained role, and informed of [facility] and [facility] resources. Pt thanked MICHAEL for information, stated he used [facility] service 1x in past and would be interested in using again. Pt stated his Dtr will provide transport at discharge. Pt stated his has Hx of brain tumors, they are growing back, she has a scheduled follow up MRI later this month, and their children are able to provide assistance. Pt reported no other issues for MICHAEL to address at this time. [facility] 01-06-2024 Note Formatting of this n ote is different from the original. Start PACC Note Home Health Referral Educated patient on Home Care and services available. Patient offered choice of available HHC and agreeable to SN/PT services with [facility] - Home Care. Care Types: None Isolation Precautions: No active isolations Social Determinates of Health: Tobacco Use: Low Risk (12/29/2023) Patient History Smoking Tobacco Use: Never Smokeless Tobacco Use: Never Passive Exposure: Not on file Social History Substance and Sexual Activity Alcohol Use Yes Comment: 3-4 per year Social History Substance and Sexual Activity Drug Use No Does the patient have any financial resource strain? No Does the patient have any food insecurities? No Does the patient have any housing instabilities? No If any of the above is noted as yes - consider a STONEMASON SUPERVISOR evaluation once the patient returns home. START PATIENT REGISTRATION INFORMATION Order Information Order Signing Physician: Sana Marcos, DO Service Ordered RN ?: Yes Service Ordered PT ?: Yes Service Ordered OT ?: No Service Ordered ST ?: No Service Ordered STONEMASON SUPERVISOR?:No Service Ordered DENTISTRY TEACHER?: No Following Physician: Hermann Damian MD Following Physician Overseeing Physician: Hermann Damian MD (Required for Residents only) Agreeable to Follow? Yes Date/Time of Call 01/06/24 11:45 AM, Spoke with: pcp directly via secure chat. Care Coordination Same Day SOC?: No Primary Care Physician: Hermann Damian MD Primary Care Physician Primary Care Physician Address: [address] [place] [address] Visit Instructions: N/A Service Discharge Location Type: Home with Home Care Service Facility Name: N/A Service Floor Facility: N/A Service Room No: N/A Demographics Patient Last Name: Stephan Patient First Name: Ciro Language/Communication Barrier: na Service Address: [address] Service City: [facility] [email or web address] ST: [place] Service ZIP: [address] [address] [facility] (home) Other phone numbers: [phone] Telephone Information: Emergency Contact: Extended Emergency Contact Information Primary Emergency Contact: Manju Sales Address: [address] [place] [address] Mobile Relation: Spouse Admission Information Admit Date: 01/05/2024 Patient status at discharge: Observation Admitting Diagnosis: Benign prostatic hyperplasia with lower urinary tract symptoms [N40.1] Retention of urine, unspecified [R33.9] BPH with obstruction/lower urinary tract symptoms [N40.1, N13.8] Caregiver Information Caregiver First Name: self Caregiver Last Name: self Caregiver Relationship to Patient self Caregiver Phone Number: na Caregiver Notes: N/A [employer] HIGHTECH: HI TECH - NEXT DAY REQUEST Requests Next Available SOC/MARLI END PATIENT REGISTRATION INFORMATION Pt Home Health goal TBD COVID Status 1. Do you have any upper respiratory symptoms (cough, SOB, Fever)? No 2. Have you been exposed to anyone with COVID-19 Virus? No Answer only if pending or positive for COVID-19? 1. Agreeable to wear PPE at each visit? No 2. Is the hospital supplying them with PPE upon Discharge? No Start PACC Summary General Report/ Additional Comments Home with lopez catheter and suprapubic catheter. Suprapubic capped. Discharge Date: pending Referral Source-PACC: (Hospital/Unit): [facility] / H-5130/H-5130 A End PACC Note [facility] 01-06-2024 Note Formatting of this n ote is different from the original. Start PACC Note Home Health Referral Educated patient on Home Care and services available. Patient offered choice of available HHC and agreeable to SN/PT services with [facility] - Home Care. Care Types: None Isolation Precautions: No active isolations Social Determinates of Health: Tobacco Use: Low Risk (12/29/2023) Patient History Smoking Tobacco Use: Never Smokeless Tobacco Use: Never Passive Exposure: Not on file Social History Substance and Sexual Activity Alcohol Use Yes Comment: 3-4 per year Social History Substance and Sexual Activity Drug Use No Does the patient have any financial resource strain? No Does the patient have any food insecurities? No Does the patient have any housing instabilities? No If any of the above is noted as yes - consider a STONEMASON SUPERVISOR evaluation once the patient returns home. START PATIENT REGISTRATION INFORMATION Order Information Order Signing Physician: Sana Marcos, DO Service Ordered RN ?: Yes Service Ordered PT ?: Yes Service Ordered OT ?: No Service Ordered ST ?: No Service Ordered STONEMASON SUPERVISOR?:No Service Ordered DENTISTRY TEACHER?: No Following Physician: Hermann Damian MD Following Physician Overseeing Physician: Hermann Damian MD (Required for Residents only) Agreeable to Follow? Yes Date/Time of Call 01/06/24 11:45 AM, Spoke with: pcp directly via secure chat. Care Coordination Same Day SOC?: No Primary Care Physician: Hermann Damian MD Primary Care Physician Primary Care Physician Address: [address] [place] [id number] Visit Instructions: N/A Service Discharge Location Type: Home with Home Care Service Facility Name: N/A Service Floor Facility: N/A Service Room No: N/A Demographics Patient Last Name: Stephan Patient First Name: Ciro Language/Communication Barrier: na Service Address: [address] [place] [address] City: [facility] [[email or web address] ST: [place] Service ZIP: [address] [facility] (home) Other phone numbers: [phone] Telephone Information: Emergency Contact: Extended Emergency Contact Information Primary Emergency Contact: Manju Sales Address: [address] [place] [id number] [facility] Mobile Relation: Spouse Admission Information Admit Date: 01/05/2024 Patient status at discharge: Observation Admitting Diagnosis: Benign prostatic hyperplasia with lower urinary tract symptoms [N40.1] Retention of urine, unspecified [R33.9] BPH with obstruction/lower urinary tract symptoms [N40.1, N13.8] Caregiver Information Caregiver First Name: self Caregiver Last Name: self Caregiver Relationship to Patient self Caregiver Phone Number: na Caregiver Notes: N/A Kelan List HIGHTECH: Sociall TECH - NEXT DAY REQUEST Requests Next Available SOC/MARLI END PATIENT REGISTRATION INFORMATION Pt Home Health goal TBD COVID Status 1. Do you have any upper respiratory symptoms (cough, SOB, Fever)? No 2. Have you been exposed to anyone with COVID-19 Virus? No Answer only if pending or positive for COVID-19? 1. Agreeable to wear PPE at each visit? No 2. Is the hospital supplying them with PPE upon Discharge? No Start PACC Summary General Report/ Additional Comments Home with lopez catheter and suprapubic catheter. Suprapubic capped. Discharge Date: pending Referral Source-PACC: (Hospital/Unit): [facility] / H-5130/H-5130 A End PACC Note [facility] 01-06-2024 Note Start PACC Note Home Health Referral Educated patient on Home Care and services available. Patient offered choice of available HHC and agreeable to SN/PT services with [facility] at Home - Home Care. Care Types: None Isolation Precautions: No active isolations Social Determinates of Health: Tobacco Use: Low Risk (12/29/2023) Patient History Smoking Tobacco Use: Never Smokeless Tobacco Use: Never Passive Exposure: Not on file Social History Substance and Sexual Activity Alcohol Use Yes Comment: 3-4 per year Social History Substance and Sexual Activity Drug Use No Does the patient have any financial resource strain? No Does the patient have any food insecurities? No Does the patient have any housing instabilities? No If any of the above is noted as yes - consider a STONEMASON SUPERVISOR evaluation once the patient returns home. START PATIENT REGISTRATION INFORMATION Order Information Order Signing Physician: Sana Marcos, DO Service Ordered RN ?: Yes Service Ordered PT ?: Yes Service Ordered OT ?: No Service Ordered ST ?: No Service Ordered STONEMASON SUPERVISOR?:No Service Ordered DENTISTRY TEACHER?: No Following Physician: Hermann Damian MD Following Physician Overseeing Physician: Hermann Damian MD (Required for Residents only) Agreeable to Follow? Yes Date/Time of Call 01/06/24 11:45 AM, Spoke with: pcp directly via secure chat. Care Coordination Same Day SOC?: No Primary Care Physician: Hermann Damian MD Primary Care Physician Primary Care Physician Address: [address] [place] [address] / [facility] [id number] Visit Instructions: N/A Service Discharge Location Type: Home with Home Care Service Facility Name: N/A Service Floor Facility: N/A Service Room No: N/A Demographics Patient Last Name: Stephan Patient First Name: Ciro Language/Communication Barrier: na Service Address: [address] [place] [address] Service City: [place] Service ST: [place] Service ZIP: [address] Service (home) Other phone numbers: [phone] Telephone Information: Emergency Contact: Extended Emergency Contact Information Primary Emergency Contact: Manju Sales Address: [address] [place] [address] [facility] Mobile Relation: Spouse Admission Information Admit Date: 01/05/2024 Patient status at discharge: Observation Admitting Diagnosis: Benign prostatic hyperplasia with lower urinary tract symptoms [N40.1] Retention of urine, unspecified [R33.9] BPH with obstruction/lower urinary tract symptoms [N40.1, N13.8] Caregiver Information Caregiver First Name: self Caregiver Last Name: self Caregiver Relationship to Patient self Caregiver Phone Number: na Caregiver Notes: N/A [employer] List HIGHTECH: HI TECH - NEXT DAY REQUEST Requests Next Available SOC/MARLI END PATIENT REGISTRATION INFORMATION Pt Home Health goal TBD COVID Status 1. Do you have any upper respiratory symptoms (cough, SOB, Fever)? No 2. Have you been exposed to anyone with COVID-19 Virus? No Answer only if pending or positive for COVID-19? 1. Agreeable to wear PPE at each visit? No 2. Is the hospital supplying them with PPE upon Discharge? No Start PACC Summary General Report/ Additional Comments Home with lopez catheter and suprapubic catheter. Suprapubic capped. Discharge Date: pending Referral Source-PACC: (Hospital/Unit): [facility] / H-5130/H-5130 A End PACC Note [facility] 01-06-2024 Plan of care note Problem: Pain - Adult Goal: Verbalizes/displays adequate comfort level or baseline comfort level Outcome: Progressing Problem: Safety - Adult Goal: Free from fall injury Outcome: Progressing Problem: Discharge Planning Goal: Discharge to home or other facility with appropriate resources Outcome: Progressing Problem: Skin/Tissue Integrity - Adult Goal: Incisions, wounds, or drain sites healing without S/S of infection Outcome: Progressing Problem: Genitourinary - Adult Goal: Urinary catheter remains patent Outcome: Progressing [facility] 01-05-2024 Telephone encounter Note of pt called in stating she needed to cancel 01/15/24 appt because she also has an appt for herself on 01/15/24. The son of the pt got on the phone to explain the need for the appt change. Changed 01/15/24 nurse visit for VT from 9:30 AM to 11:00 AM. [facility] 01-05-2024 Miscellaneous Notes of pt called in stating she needed to cancel 01/15/24 appt because she also has an appt for herself on 01/15/24. The son of the pt got on the phone to explain the need for the appt change. Changed 01/15/24 nurse visit for VT from 9:30 AM to 11:00 AM. Returned call to patient, spoke with patient and to clarify medications prior to surgery. Advised them to refer to their PAT paper work. Reviewed medication together. Communicated understanding, no further questions. Pt called back and needs call back halima before Friday before procedure Received call from pt regarding his upcoming surgery. Pt had questions about his medications. Pt does take Xarelto, see TE from 12-30 with CAC. Returned call to pt, no answer, left message to call the office back documented in this encounter [facility] 01-05-2024 Note Formatting of this n ote might be different from the original. Updated patient family on delay. Notified them of patient going to room [facility] 01-05-2024 Note Formatting of this n ote might be different from the original. Updated patient family on delay. Notified them of patient going to room [facility] 01-05-2024 Note Formatting of this n ote might be different from the original. Patient family/visitor updated by RN at this time. Update to karon Haywood via phone call, will meet patient in room 5130 [facility] 01-05-2024 Note Formatting of this n ote might be different from the original. Patient family/visitor updated by RN at this time. Update to karon Haywood via phone call, will meet patient in room 5130 [facility] 01-05-2024 Note Patient: Tennille whiteside Procedure Summary Date: 01/05/24 Room / Location: [address] Operating Room Anesthesia Start: 0750 Anesthesia Stop: 1105 Procedures: CYSTOSCOPY (Urethra) TRANSURETHRAL RESECTION OF PROSTATE (Urethra) INSERTION OF SUPRAPUBIC TUBE (Abdomen) Diagnosis: Benign prostatic hyperplasia with lower urinary tract symptoms Retention of urine, unspecified Surgeons: Sana Marcos DO Responsible Provider: Ted Jett MD Anesthesia Type: general ASA Status: 3 Anesthesia Type: general Vitals Value Taken Time BP 146/87 01/05/24 1117 Temp 36.2 ?C (97.1 ?F) 01/05/24 1105 Pulse 68 01/05/24 1126 Resp 15 01/05/24 1117 SpO2 100 % 01/05/24 1126 Vitals shown include unfiled device data. Anesthesia Post Evaluation Patient location during evaluation: PACU Patient participation: complete - patient participated Level of consciousness: awake and alert Pain management: satisfactory to patient Airway patency: patent Dental Injury: no Cardiovascular status: acceptable, blood pressure returned to baseline and hemodynamically stable Respiratory status: acceptable, spontaneous ventilation and face mask Hydration status: euvolemic Nausea/Vomiting: controlled No notable events documented. Patient can be discharged once all PACU criteria has been met. [facility] 01-05-2024 Note Patient: Tennille whiteside Procedure Summary Date: 01/05/24 Room / Location: [address] Operating Room Anesthesia Start: 0750 Anesthesia Stop: 1105 Procedures: CYSTOSCOPY (Urethra) TRANSURETHRAL RESECTION OF PROSTATE (Urethra) INSERTION OF SUPRAPUBIC TUBE (Abdomen) Diagnosis: Benign prostatic hyperplasia with lower urinary tract symptoms Retention of urine, unspecified Surgeons: Sana Marcos DO Responsible Provider: Ted Jett MD Anesthesia Type: general ASA Status: 3 Anesthesia Type: general Vitals Value Taken Time BP 145/99 01/05/24 1105 Temp 36.2 ?C (97.1 ?F) 01/05/24 1105 Pulse 65 01/05/24 1114 Resp 18 01/05/24 1105 SpO2 100 % 01/05/24 1114 Vitals shown include unfiled device data. Anesthesia Post Evaluation Patient location during evaluation: PACU Patient participation: complete - patient participated Level of consciousness: awake and alert Pain management: satisfactory to patient Multimodal analgesia pain management approach Airway patency: patent Two or more strategies used to mitigate risk of obstructive sleep apnea Cardiovascular status: acceptable and hemodynamically stable Respiratory status: acceptable, face mask and spontaneous ventilation Hydration status: acceptable No notable events documented. MIPS #430 PONV Patient received an inhalational anesthetic (4554F) Patient does not exhibit three or more risk factors for PONV (X0430)) MIPS # 424 Perioperative Temperature Management Anesthesia time was 60 minutes or longer (4255F) Anesthesai administered was General (inhalational or TIVA) or Neuraxial block (X0424) At least one body temperature greater than 95.8F/35.5C achieved within the 30 mins immediately prior to or the 15 minutes immediately following anesthesia end time (G9771) MIPS #477 Multimodal Pain Management Not emergent case Patient was administered multimodal pain management (two or more drugs and/or interventions excluding systemic opioids) in the periopeartive period occurring at some time between 6 hours prior to anesthesia start time until discharged from PACU (G2148) MIPS #404 Anesthesiology Smoking Abstinence The patient is not a current smoker (e.g. cigarette, cigar, pipe, e-cigarette/vaping/marijuana) If no stop here (XX404) I completed my handoff to the receiving clinician during which we: 1. Identified the patient 2. Identified the responsible provider 3. Reviewed the pertinent medical history 4. Discussed the surgical course 5. Reviewed intra-op anesthesia management and issues during anesthesia 6. Set expectations for post-procedure period 7. Allowed opportunity for questions and acknowledgement of understanding. [facility] 01-05-2024 Note Airway Date/Time: 01/05/2024 8:03 AM Urgency: scheduled Airway not difficult General Information and Staff Patient location during procedure: Procedural Resident/VAMP CUT OUT WORKER: Eren Ramirez CRNA Performed: SRNA Indications and Patient Condition Indications for airway management: anesthesia Sedation level: Asleep Preoxygenated: yes Patient position: sniffing Mask difficulty assessment: 1 - vent by mask Final Airway Details Final airway type: endotracheal airway Successful airway: ETT Cuffed: yes Successful intubation technique: video laryngoscopy Facilitating devices/methods: intubating stylet Endotracheal tube insertion site: oral Blade: [place] scope Blade size: #3 ETT size (mm): 8.0 Cormack-Lehane Classification: grade I - full view of glottis Placement verified by: chest auscultation and capnometry Measured from: lips ETT to lips (cm): 24 Number of attempts at approach: 1 Number of other approaches attempted: 0 Additional Comments Atra[facility] 01-05-2024 Attending History and physical note H&P reviewed. The patient was examined and there are no changes to the H&P. Source Note - Tanna Finch APRN - JERZY - 12/29/2023 3:00 PM EDT Images from the original note were not included. Comprehensive Pre Surgical History and Physical ? Name: Ciro Sales : 1935 (Age-88 y.o.) Date of Service: Pt seen/examined on 12/29/2023 Procedure Information Date/Time: 01/05/24 0830 Procedures: CYSTOSCOPY (Urethra) - 120 MIN TRANSURETHRAL RESECTION OF PROSTATE (Urethra) INSERTION OF SUPRAPUBIC TUBE (Abdomen) Location: [address] Operating Room Surgeons: Sana Marcos DO Chief Complaint: Benign prostatic hyperplasia with lower urinary tract symptoms [N40.1] Retention of urine, unspecified [R33.9] ASSESSMENT/PLAN: Patient is considered intermediate risk for this intermediate level 1 risk procedure/surgery () with no reducible risk factors. Based on the above evaluation, the benefits of the planned procedure likely exceed the risks. The patient is medically optimized to proceed with the planned procedure without any further cardiopulmonary testing. 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 Damian for management - Managed with Valsartan - Patient is compliant with medication(s) - EKG and labs per PAT protocol 4) HPL - Managed with diet/lifestyle 5) GERD - Symptoms controlled - Managed with famotidine, Protonix 6) Anemia - Source: Unspecified - Last CBC 10/13/23: H/H 12.5/39.8 - Hx of Transfusion: No - Managed with None 7) BPH - Managed with Uroxatral, Proscar 8) Tremor - Resting head tremor 9) Arthritis - Noted Visit Type: Pre-Admission Testing Visit Labs Ordered: YES - PER PAT PROTOCOL Sleep Referral Ordered: Offered referral, patient declined Total time spent (which include face to face and non face to face encounters) : 45 minutes Toxic drug monitoring/narrow therapeutic index drug monitoring : # Drug name : Amadou Valsartan # Route administered : PO # Method of monitoring : CBC, BMP PAT Protocol referenced includes: 1. Anesthesia Lab Protocol Orders 2. Perioperative Cardiovascular Risk Assessment 3. Anesthesia Assessment 4. Pain Assessment and Acute Pain Service Consult (if appropriate) 5. Medical Clearance/Consult from Internal Medicine (IMS) 6. Shower/Wash Order (for designated surgeries) 7. HIGINIO Screen and Sleep Clinic Referral (if appropriate) History Of Present Illness: 88 y.o. male who we are asked to see/evaluate by Dr. Marcos for pre-operative evaluation prior to ? Case: [id number] Date/Time: 01/05/24 0830 Procedures: CYSTOSCOPY (Urethra) [84862 CPT(R)] - 120 MIN TRANSURETHRAL RESECTION OF PROSTATE (Urethra) [79192 CPT(R)] INSERTION OF SUPRAPUBIC TUBE (Abdomen) [84668 CPT(R)] Anesthesia type: general Diagnosis: Benign prostatic hyperplasia with lower urinary tract symptoms [N40.1] Retention of urine, unspecified [R33.9] Location: [facility] OR [address] [place] [address] Operating Room Surgeons: Sana Marcos DO From last office visit with Dr. Marcos on 12/16/23: He is on xarelto for DVT/PE which was found in early September 2023 10/07/23 had surgery planned (TURP and SPT insertion) however this was cancelled as he was admitted with a PE He would like to proceed with surgery when able to schedule Understands that we need to weigh risks and benefits of holding anticoagulation and discuss appropriate timing of surgery Will start finasteride at this time This will potentially help with prostatic bleeding/varices are time of surgery 09/03/23 VT - unable to void. Switched to Alfuzosin due to side effects from tamsulosin 08/18/22 VT - unable to void. Tamsulosin BID 08/02/23 Consult for retention after spinal surgery on 07/30. > 1 L UOP Known hx of BPH, Elevated PSA Patient denies exertional chest pain/shortness of breath. Denies dizziness, syncope, lightheadedness. Denies fever, chills, weakness or fatigue. Patient denies any recent illness, infections, or wounds. Patient denies abdominal pain, nausea, vomiting, diarrhea, or constipation. Patient denies hx of CAD, CHF, AR, TIA/CVA, diabetes, COPD, asthma, HIGINIO. Past Medical History: Past Medical History: 11/18/2022: Acute deep vein thrombosis (DVT) of popliteal vein of left lower extremity (HCC) Comment: 11/04/2022. 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 No date: DVT (deep venous thrombosis) ([facility]) Comment: LLE No date: GERD (gastroesophageal reflux disease) No date: History of elevated PSA No date: Hyperlipidemia No date: Hypertension 11/22/2020: Poison gt No date: Umbilical hernia without obstruction or gangrene Comment: SCHEDULED FOR THE SURGERY ON 05/2804/11/2022: Viral URI with cough Past Surgical History: Past Surgical History: No date: CATARACT EXTRACTION; Right No date: COLONOSCOPY 1999: HEMORRHOID SURGERY Comment: SHB No date: HERNIA REPAIR; Right Comment: inguinal 07/31/2023: LAMINECTOMY Comment: L2, L3, L4, L5 laminectomy L4-L5 fusion No date: NOSE SURGERY Comment: A KID 05/28/2019: UMBILICAL HERNIA REPAIR Medications Prior to Admission: Current Outpatient Medications on File Prior to Visit Medication Sig Dispense Refill ASCORBIC ACID PO Take 500 mg by mouth before bedtime. Calcium Citrate-Vitamin D (CALCIUM CITRATE + PO) Take 600 mg by mouth before bedtime. CHOLECALCIFEROL PO Take 125 mcg by mouth before bedtime. ciclopirox (Loprox) 0.77 % cream Apply topically 2 times daily x4 weeks to affected toenails 90 g 0 famotidine (Pepcid) 20 MG tablet Take by mouth every evening. finasteride (Proscar) 5 MG tablet Take 1 tablet (5 mg) by mouth daily. Do not crush, chew, or split. 90 tablet 3 fluticasone (Flonase) 50 MCG/ACT nasal spray Administer 2 sprays into each nostril daily. Shake gently. Before first use, prime pump. After use, clean tip and replace cap. 16 g 5 guaiFENesin (Mucinex) 600 MG 12 hr tablet Take 1 tablet (600 mg) by mouth 2 times daily. Do not crush, chew, or split. 60 tablet 3 Multiple Vitamins-Minerals (CENTRUM SILVER 50+MEN PO) Take by mouth Nightly. NON FORMULARY 2 times daily as needed. Unk eye drop pantoprazole (ProtoNix) 40 MG EC tablet Take 40 mg by mouth daily. polyethylene glycol, PEG, 3350 (MiraLax) 17 GM/SCOOP powder Take 17 g by mouth daily. 850 g 3 rivaroxaban (Xarelto) 20 MG tablet Take 1 tablet (20 mg) by mouth daily. Take with food. 90 tablet 1 valsartan (Diovan) 40 MG tablet Take 1 tablet (40 mg) by mouth daily. 90 tablet 1 senna-docusate sodium (Senokot-S) 8.6-50 MG tablet Take 1 tablet by mouth Daily as needed for constipation (if no bowel movement in 3 days). (Patient not taking: Reported on 12/29/2023) 30 tablet 1 No current facility-administered medications on file prior to visit. CHRONIC NARCOTIC USE: No Do you have a history of chronic opioid use? No Allergies: Hydrocodone, Lisinopril, and Seasonal ic [cholestatin] If patient has opioid allergy, is it okay to take Acetaminophen: Yes Social History: TOBACCO: reports that he has never smoked. He has never used smokeless tobacco. ETOH: reports current alcohol use. Social History Substance and Sexual Activity Drug Use No Family History: Family History Problem Relation Name Age of Onset Heart disease Mother Cancer Father REVIEW OF SYSTEMS: Review of Systems Constitutional: Negative. HENT: Negative. Respiratory: Positive for cough (Chronic). Cardiovascular: Negative. Gastrointestinal: Negative. Endocrine: Negative. Genitourinary: Negative. + Lopez Musculoskeletal: Negative. Skin: Negative. Allergic/Immunologic: Negative. Neurological: Negative. Hematological: Negative. Psychiatric/Behavioral: Negative. Physical Exam: Physical Exam Vitals reviewed. Constitutional: Appearance: Normal appearance. HENT: Head: Normocephalic. Mouth/Throat: Mouth: Mucous membranes are moist. Pharynx: Oropharynx is clear. Eyes: Conjunctiva/sclera: Conjunctivae normal. Cardiovascular: Rate and Rhythm: Normal rate and regular rhythm. Pulses: Normal pulses. Heart sounds: Normal heart sounds. Comments: No Carotid Bruits appreciated Pulmonary: Effort: Pulmonary effort is normal. Breath sounds: Normal breath sounds. Abdominal: General: Abdomen is flat. Bowel sounds are normal. Palpations: Abdomen is soft. Musculoskeletal: General: Normal range of motion. Cervical back: Normal range of motion. Skin: General: Skin is warm and dry. Capillary Refill: Capillary refill takes less than 2 seconds. Neurological: General: No focal deficit present. Mental Status: He is alert and oriented to person, place, and time. Psychiatric: Mood and Affect: Mood normal. Behavior: Behavior normal. Vitals: Vitals Value Taken Time BP 140/80 12/29/23 1456 Temp 36.6 C (97.9 F) 12/29/23 1456 Pulse 75 12/29/23 1456 Resp 18 12/29/23 1456 SpO2 95 % 12/29/23 1456 Labs: Lab Results Component Value Date WBC 7.5 10/13/2023 HGB 12.5 (L) 10/13/2023 HCT 39.8 10/13/2023 MCV 88.8 10/13/2023 PLT 280 10/13/2023 Lab Results Component Value Date NA 132 (L) 10/03/2023 K 4.7 10/03/2023 CL 100 10/03/2023 CO2 27 10/03/2023 BUN 22 (H) 10/03/2023 CREATININE 1.41 (H) 10/03/2023 GLUCOSE 137 (H) 10/03/2023 CALCIUM 8.6 10/03/2023 PROT 6.7 10/03/2023 ALKPHOS 64 10/03/2023 AST 25 10/03/2023 ALT 16 10/03/2023 EGFR 48.2 (L) 10/03/2023 GLOB 2.6 04/10/2023 Jose's Simple Cardiac Risk Index: JOSE'S SIMPLE CARDIAC RISK SCORE: 0 Interpretation: 0 Points Class I 0.5% 1 Point Class II 1.3% 2 Points Class III 3.6% 3+ Points Class IV 9.1% PAT Pain Score: Postop Pain Management Plan (Pain consult ordered?): Pain consult not indicated at this time ? 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 The jose schroeder was examined and there are no changes to the H&P. [facility] 01-05-2024 History and physical note H&P reviewed. The patient was examined and there are no changes to the H&P. Source Note - KALLIE Moore CNP - 12/29/2023 3:00 PM EDT Images from the original note were not included. Comprehensive Pre Surgical History and Physical ? Name: Ciro Sales : 1935 (Age-88 y.o.) Date of Service: Pt seen/examined on 12/29/2023 Procedure Information Date/Time: 01/05/24 0830 Procedures: CYSTOSCOPY (Urethra) - 120 MIN TRANSURETHRAL RESECTION OF PROSTATE (Urethra) INSERTION OF SUPRAPUBIC TUBE (Abdomen) Location: [facility] OR [address] [place] [address] Operating Room Surgeons: Sana Marcos DO Chief Complaint: Benign prostatic hyperplasia with lower urinary tract symptoms [N40.1] Retention of urine, unspecified [R33.9] ASSESSMENT/PLAN: Patient is considered intermediate risk for this intermediate level 1 risk procedure/surgery () with no reducible risk factors. Based on the above evaluation, the benefits of the planned procedure likely exceed the risks. The patient is medically optimized to proceed with the planned procedure without any further cardiopulmonary testing. 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 Damian for management - Managed with Valsartan - Patient is compliant with medication(s) - EKG and labs per PAT protocol 4) HPL - Managed with diet/lifestyle 5) GERD - Symptoms controlled - Managed with famotidine, Protonix 6) Anemia - Source: Unspecified - Last CBC 10/13/23: H/H 12.5/39.8 - Hx of Transfusion: No - Managed with None 7) BPH - Managed with Uroxatral, Proscar 8) Tremor - Resting head tremor 9) Arthritis - Noted Visit Type: Pre-Admission Testing Visit Labs Ordered: YES - PER PAT PROTOCOL Sleep Referral Ordered: Offered referral, patient declined Total time spent (which include face to face and non face to face encounters) : 45 minutes Toxic drug monitoring/narrow therapeutic index drug monitoring : # Drug name : Nas Tobar # Route administered : PO # Method of monitoring : CBC, BMP PAT Protocol referenced includes: 1. Anesthesia Lab Protocol Orders 2. Perioperative Cardiovascular Risk Assessment 3. Anesthesia Assessment 4. Pain Assessment and Acute Pain Service Consult (if appropriate) 5. Medical Clearance/Consult from Internal Medicine (IMS) 6. Shower/Wash Order (for designated surgeries) 7. HIGINIO Screen and Sleep Clinic Referral (if appropriate) History Of Present Illness: 88 y.o. male who we are asked to see/evaluate by Dr. Marcos for pre-operative evaluation prior to ? Case: [id number] Date/Time: 01/05/24 0830 Procedures: CYSTOSCOPY (Urethra) [56323 CPT(R)] - 120 MIN TRANSURETHRAL RESECTION OF PROSTATE (Urethra) [86504 CPT(R)] INSERTION OF SUPRAPUBIC TUBE (Abdomen) [39590 CPT(R)] Anesthesia type: general Diagnosis: Benign prostatic hyperplasia with lower urinary tract symptoms [N40.1] Retention of urine, unspecified [R33.9] Location: [address] Operating Room Surgeons: Sana Marcos DO From last office visit with Dr. Marcos on 12/16/23: He is on xarelto for DVT/PE which was found in early September 2023 10/07/23 had surgery planned (TURP and SPT insertion) however this was cancelled as he was admitted with a PE He would like to proceed with surgery when able to schedule Understands that we need to weigh risks and benefits of holding anticoagulation and discuss appropriate timing of surgery Will start finasteride at this time This will potentially help with prostatic bleeding/varices are time of surgery 09/03/23 VT - unable to void. Switched to Alfuzosin due to side effects from tamsulosin 08/18/22 VT - unable to void. Tamsulosin BID 08/02/23 Consult for retention after spinal surgery on 07/30. > 1 L UOP Known hx of BPH, Elevated PSA Patient denies exertional chest pain/shortness of breath. Denies dizziness, syncope, lightheadedness. Denies fever, chills, weakness or fatigue. Patient denies any recent illness, infections, or wounds. Patient denies abdominal pain, nausea, vomiting, diarrhea, or constipation. Patient denies hx of CAD, CHF, AR, TIA/CVA, diabetes, COPD, asthma, HIGINIO. Past Medical History: Past Medical History: 11/18/2022: Acute deep vein thrombosis (DVT) of popliteal vein of left lower extremity ([facility]) Comment: 11/04/2022. xarelto x 3 months 04/21/2023: Acute embolism and thrombosis of left peroneal vein ([facility]) No date: Anemia No date: Arthritis No date: Cancer (CMS/HCC) ([facility]) Comment: BcC of nose No date: DVT (deep venous thrombosis) ([facility]) Comment: LLE No date: GERD (gastroesophageal reflux disease) No date: History of elevated PSA No date: Hyperlipidemia No date: Hypertension 11/22/2020: Poison gt No date: Umbilical hernia without obstruction or gangrene Comment: SCHEDULED FOR THE SURGERY ON 05/2804/11/2022: Viral URI with cough Past Surgical History: Past Surgical History: No date: CATARACT EXTRACTION; Right No date: COLONOSCOPY 1999: HEMORRHOID SURGERY Comment: SHB No date: HERNIA REPAIR; Right Comment: inguinal 07/31/2023: LAMINECTOMY Comment: L2, L3, L4, L5 laminectomy L4-L5 fusion No date: NOSE SURGERY Comment: A KID 05/28/2019: UMBILICAL HERNIA REPAIR Medications Prior to Admission: Current Outpatient Medications on File Prior to Visit Medication Sig Dispense Refill ASCORBIC ACID PO Take 500 mg by mouth before bedtime. Calcium Citrate-Vitamin D (CALCIUM CITRATE + PO) Take 600 mg by mouth before bedtime. CHOLECALCIFEROL PO Take 125 mcg by mouth before bedtime. ciclopirox (Loprox) 0.77 % cream Apply topically 2 times daily x4 weeks to affected toenails 90 g 0 famotidine (Pepcid) 20 MG tablet Take by mouth every evening. finasteride (Proscar) 5 MG tablet Take 1 tablet (5 mg) by mouth daily. Do not crush, chew, or split. 90 tablet 3 fluticasone (Flonase) 50 MCG/ACT nasal spray Administer 2 sprays into each nostril daily. Shake gently. Before first use, prime pump. After use, clean tip and replace cap. 16 g 5 guaiFENesin (Mucinex) 600 MG 12 hr tablet Take 1 tablet (600 mg) by mouth 2 times daily. Do not crush, chew, or split. 60 tablet 3 Multiple Vitamins-Minerals (CENTRUM SILVER 50+MEN PO) Take by mouth Nightly. NON FORMULARY 2 times daily as needed. Unk eye drop pantoprazole (ProtoNix) 40 MG EC tablet Take 40 mg by mouth daily. polyethylene glycol, PEG, 3350 (MiraLax) 17 GM/SCOOP powder Take 17 g by mouth daily. 850 g 3 rivaroxaban (Xarelto) 20 MG tablet Take 1 tablet (20 mg) by mouth daily. Take with food. 90 tablet 1 valsartan (Diovan) 40 MG tablet Take 1 tablet (40 mg) by mouth daily. 90 tablet 1 senna-docusate sodium (Senokot-S) 8.6-50 MG tablet Take 1 tablet by mouth Daily as needed for constipation (if no bowel movement in 3 days). (Patient not taking: Reported on 12/29/2023) 30 tablet 1 No current facility-administered medications on file prior to visit. CHRONIC NARCOTIC USE: No Do you have a history of chronic opioid use? No Allergies: Hydrocodone, Lisinopril, and Seasonal ic [cholestatin] If patient has opioid allergy, is it okay to take Acetaminophen: Yes Social History: TOBACCO: reports that he has never smoked. He has never used smokeless tobacco. ETOH: reports current alcohol use. Social History Substance and Sexual Activity Drug Use No Family History: Family History Problem Relation Name Age of Onset Heart disease Mother Cancer Father REVIEW OF SYSTEMS: Review of Systems Constitutional: Negative. HENT: Negative. Respiratory: Positive for cough (Chronic). Cardiovascular: Negative. Gastrointestinal: Negative. Endocrine: Negative. Genitourinary: Negative. + Lopez Musculoskeletal: Negative. Skin: Negative. Allergic/Immunologic: Negative. Neurological: Negative. Hematological: Negative. Psychiatric/Behavioral: Negative. Physical Exam: Physical Exam Vitals reviewed. Constitutional: Appearance: Normal appearance. HENT: Head: Normocephalic. Mouth/Throat: Mouth: Mucous membranes are moist. Pharynx: Oropharynx is clear. Eyes: Conjunctiva/sclera: Conjunctivae normal. Cardiovascular: Rate and Rhythm: Normal rate and regular rhythm. Pulses: Normal pulses. Heart sounds: Normal heart sounds. Comments: No Carotid Bruits appreciated Pulmonary: Effort: Pulmonary effort is normal. Breath sounds: Normal breath sounds. Abdominal: General: Abdomen is flat. Bowel sounds are normal. Palpations: Abdomen is soft. Musculoskeletal: General: Normal range of motion. Cervical back: Normal range of motion. Skin: General: Skin is warm and dry. Capillary Refill: Capillary refill takes less than 2 seconds. Neurological: General: No focal deficit present. Mental Status: He is alert and oriented to person, place, and time. Psychiatric: Mood and Affect: Mood normal. Behavior: Behavior normal. Vitals: Vitals Value Taken Time BP 140/80 12/29/23 1456 Temp 36.6 C (97.9 F) 12/29/23 1456 Pulse 75 12/29/23 1456 Resp 18 12/29/23 1456 SpO2 95 % 12/29/23 1456 Labs: Lab Results Component Value Date WBC 7.5 10/13/2023 HGB 12.5 (L) 10/13/2023 HCT 39.8 10/13/2023 MCV 88.8 10/13/2023 PLT 280 10/13/2023 Lab Results Component Value Date NA 132 (L) 10/03/2023 K 4.7 10/03/2023 CL 100 10/03/2023 CO2 27 10/03/2023 BUN 22 (H) 10/03/2023 CREATININE 1.41 (H) 10/03/2023 GLUCOSE 137 (H) 10/03/2023 CALCIUM 8.6 10/03/2023 PROT 6.7 10/03/2023 ALKPHOS 64 10/03/2023 AST 25 10/03/2023 ALT 16 10/03/2023 EGFR 48.2 (L) 10/03/2023 GLOB 2.6 04/10/2023 Jose's Simple Cardiac Risk Index: JOSE'S SIMPLE CARDIAC RISK SCORE: 0 Interpretation: 0 Points Class I 0.5% 1 Point Class II 1.3% 2 Points Class III 3.6% 3+ Points Class IV 9.1% PAT Pain Score: Postop Pain Management Plan (Pain consult ordered?): Pain consult not indicated at this time ? 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 Advised them to refer to their PAT paper work. Reviewed medication together. Communicated understanding, no further questions. [facility] 01-02-2024 Note Pt called back and n eeds call back halima before Friday before procedure [facility] 01-02-2024 Telephone encounter Note Pt called back and needs call back halima before Friday before procedure [facility] 01-02-2024 Telephone encounter Note Received call from pt regarding his upcoming surgery. Pt had questions about his medications. Pt does take Xarelto, see TE from 12-30 with CAC. Returned call to pt, no answer, left message to call the office back [facility] 12-31-2023 Note I would recommend he discuss this with the specialist doing the procedure as they would have more information and knowledge on expected recovery time. [facility] 12-29-2023 Note Comprehensive Pre Gonsales rgical History and Physical ? Name: Ciro Sales : 1935 (Age-88 y.o.) Date of Service: Pt seen/examined on 12/29/2023 Procedure Information Date/Time: 01/05/24 0830 Procedures: CYSTOSCOPY (Urethra) - 120 MIN TRANSURETHRAL RESECTION OF PROSTATE (Urethra) INSERTION OF SUPRAPUBIC TUBE (Abdomen) Location: [address] Operating Room Surgeons: Sana Marcos DO Chief Complaint: Benign prostatic hyperplasia with lower urinary tract symptoms [N40.1] Retention of urine, unspecified [R33.9] ASSESSMENT/PLAN: Patient is considered intermediate risk for this intermediate level 1 risk procedure/surgery () with no reducible risk factors. Based on the above evaluation, the benefits of the planned procedure likely exceed the risks. The patient is medically optimized to proceed with the planned procedure without any further cardiopulmonary testing. 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 Damian for management - Managed with Valsartan - Patient is compliant with medication(s) - EKG and labs per PAT protocol 4) HPL - Managed with diet/lifestyle 5) GERD - Symptoms controlled - Managed with famotidine, Protonix 6) Anemia - Source: Unspecified - Last CBC 24: H/H 12.5/39.8 - Hx of Transfusion: No - Managed with None 7) BPH - Managed with Uroxatral, Proscar 8) Tremor - Resting head tremor 9) Arthritis - Noted Visit Type: Pre-Admission Testing Visit Labs Ordered: YES - PER PAT PROTOCOL Sleep Referral Ordered: Offered referral, patient declined Total time spent (which include face to face and non face to face encounters) : 45 minutes Toxic drug monitoring/narrow therapeutic index drug monitoring : # Drug name : Soniya Tobarsartan # Route administered : PO # Method of monitoring : CBC, BMP PAT Protocol referenced includes: 1. Anesthesia Lab Protocol Orders 2. Perioperative Cardiovascular Risk Assessment 3. Anesthesia Assessment 4. Pain Assessment and Acute Pain Service Consult (if appropriate) 5. Medical Clearance/Consult from Internal Medicine (IMS) 6. Shower/Wash Order (for designated surgeries) 7. HIGINIO Screen and Sleep Clinic Referral (if appropriate) History Of Present Illness: 88 y.o. male who we are asked to see/evaluate by Dr. Marcos for pre-operative evaluation prior to ? Case: [id number] Date/Time: 01/05/24 0830 Procedures: CYSTOSCOPY (Urethra) [78784 CPT(R)] - 120 MIN TRANSURETHRAL RESECTION OF PROSTATE (Urethra) [22718 CPT(R)] INSERTION OF SUPRAPUBIC TUBE (Abdomen) [57262 CPT(R)] Anesthesia type: general Diagnosis: Benign prostatic hyperplasia with lower urinary tract symptoms [N40.1] Retention of urine, unspecified [R33.9] Location: [address] Operating Room Surgeons: Sanabereket Marcos DO From last office visit with Dr. Marcos on 12/16/23: He is on xarelto for DVT/PE which was found in early September 2023 10/07/23 had surgery planned (TURP and SPT insertion) however this was cancelled as he was admitted with a PE He would like to proceed with surgery when able to schedule Understands that we need to weigh risks and benefits of holding anticoagulation and discuss appropriate timing of surgery Will start finasteride at this time This will potentially help with prostatic bleeding/varices are time of surgery 09/03/23 VT - unable to void. Switched to Alfuzosin due to side effects from tamsulosin 08/18/22 VT - unable to void. Tamsulosin BID 08/02/23 Consult for retention after spinal surgery on 07/30. > 1 L UOP Known hx of BPH, Elevated PSA Patient denies exertional chest pain/shortness of breath. Denies dizziness, syncope, lightheadedness. Denies fever, chills, weakness or fatigue. Patient denies any recent illness, infections, or wounds. Patient denies abdominal pain, nausea, vomiting, diarrhea, or constipation. Patient denies hx of CAD, CHF, AR, TIA/CVA, diabetes, COPD, asthma, HIGINIO. Past Medical History: Past Medical History: 11/18/2022: Acute deep vei (more content not included)... [facility] 12-29-2023 Note Comprehensive Pre Gonsales rgical History and Physical ? Name: Ciro Sales : 1935 (Age-88 y.o.) Date of Service: Pt seen/examined on 12/29/2023 Procedure Information Date/Time: 01/05/24 0830 Procedures: CYSTOSCOPY (Urethra) - 120 MIN TRANSURETHRAL RESECTION OF PROSTATE (Urethra) INSERTION OF SUPRAPUBIC TUBE (Abdomen) Location: [facility] OR [address] [place] [address] Operating Room Surgeons: Sana Marcos DO Chief Complaint: Benign prostatic hyperplasia with lower urinary tract symptoms [N40.1] Retention of urine, unspecified [R33.9] ASSESSMENT/PLAN: Patient is considered intermediate risk for this intermediate level 1 risk procedure/surgery () with no reducible risk factors. Based on the above evaluation, the benefits of the planned procedure likely exceed the risks. The patient is medically optimized to proceed with the planned procedure without any further cardiopulmonary testing. 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 Damian for management - Managed with Valsartan - Patient is compliant with medication(s) - EKG and labs per PAT protocol 4) HPL - Managed with diet/lifestyle 5) GERD - Symptoms controlled - Managed with famotidine, Protonix 6) Anemia - Source: Unspecified - Last CBC 10/13/23: H/H 12.5/39.8 - Hx of Transfusion: No - Managed with None 7) BPH - Managed with Uroxatral, Proscar 8) Tremor - Resting head tremor 9) Arthritis - Noted Visit Type: Pre-Admission Testing Visit Labs Ordered: YES - PER PAT PROTOCOL Sleep Referral Ordered: Offered referral, patient declined Total time spent (which include face to face and non face to face encounters) : 45 minutes Toxic drug monitoring/narrow therapeutic index drug monitoring : # Drug name : Eliquis, Valsartan # Route administered : PO # Method of monitoring : CBC, BMP PAT Protocol referenced includes: 1. Anesthesia Lab Protocol Orders 2. Perioperative Cardiovascular Risk Assessment 3. Anesthesia Assessment 4. Pain Assessment and Acute Pain Service Consult (if appropriate) 5. Medical Clearance/Consult from Internal Medicine (IMS) 6. Shower/Wash Order (for designated surgeries) 7. HIGINIO Screen and Sleep Clinic Referral (if appropriate) History Of Present Illness: 88 y.o. male who we are asked to see/evaluate by Dr. Marcos for pre-operative evaluation prior to ? Case: [id number] Date/Time: 01/05/24 0830 Procedures: CYSTOSCOPY (Urethra) [20452 CPT(R)] - 120 MIN TRANSURETHRAL RESECTION OF PROSTATE (Urethra) [20512 CPT(R)] INSERTION OF SUPRAPUBIC TUBE (Abdomen) [06578 CPT(R)] Anesthesia type: general Diagnosis: Benign prostatic hyperplasia with lower urinary tract symptoms [N40.1] Retention of urine, unspecified [R33.9] Location: [address] Operating Room Surgeons: Sana Marcos, DO From last office visit with Dr. Marcos on 12/16/23: He is on xarelto for DVT/PE which was found in early September 2023 10/07/23 had surgery planned (TURP and SPT insertion) however this was cancelled as he was admitted with a PE He would like to proceed with surgery when able to schedule Understands that we need to weigh risks and benefits of holding anticoagulation and discuss appropriate timing of surgery Will start finasteride at this time This will potentially help with prostatic bleeding/varices are time of surgery 09/03/23 VT - unable to void. Switched to Alfuzosin due to side effects from tamsulosin 08/18/22 VT - unable to void. Tamsulosin BID 08/02/23 Consult for retention after spinal surgery on 07/30. > 1 L UOP Known hx of BPH, Elevated PSA Patient denies exertional chest pain/shortness of breath. Denies dizziness, syncope, lightheadedness. Denies fever, chills, weakness or fatigue. Patient denies any recent illness, infections, or wounds. Patient denies abdominal pain, nausea, vomiting, diarrhea, or constipation. Patient denies hx of CAD, CHF, AR, TIA/CVA, diabetes, COPD, asthma, HIGINIO. Past Medical History: Past Medical History: 11/18/2022: Acute deep vei (more content not included)... [facility] 12-26-2023 Note Patient: Tennille whiteside Procedure Information Date/Time: 01/05/24 0830 Procedures: CYSTOSCOPY (Urethra) - 120 MIN TRANSURETHRAL RESECTION OF PROSTATE (Urethra) INSERTION OF SUPRAPUBIC TUBE (Abdomen) Location: [address] Operating Room Surgeons: Sana Marcos, DO Relevant Problems Anesthesia (+) Delayed emergence from anesthesia Cardio (+) Acute pulmonary embolism (HCC) (+) Essential hypertension, benign (+) Hyperlipidemia /Renal (+) BPH with obstruction/lower urinary tract symptoms (+) Chronic kidney disease, stage 3a (HCC) (+) Renal insufficiency Other (+) Basal cell carcinoma of nose Past Medical History: Past Medical History: 11/18/2022: Acute deep vein thrombosis (DVT) of popliteal vein of left lower extremity (HCC) Comment: 11/04/2022. 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 No date: DVT (deep venous thrombosis) ([facility]) Comment: LLE No date: GERD (gastroesophageal reflux disease) No date: History of elevated PSA No date: Hyperlipidemia No date: Hypertension 11/22/2020: Poison gt No date: Umbilical hernia without obstruction or gangrene Comment: SCHEDULED FOR THE SURGERY ON 05/2804/11/2022: Viral URI with cough Past Surgical History: Past Surgical History: No date: CATARACT EXTRACTION; Right No date: COLONOSCOPY 1999: HEMORRHOID SURGERY Comment: SHB No date: HERNIA REPAIR; Right Comment: inguinal 07/31/2023: LAMINECTOMY Comment: L2, L3, L4, L5 laminectomy L4-L5 fusion No date: NOSE SURGERY Comment: A KID 05/28/2019: UMBILICAL HERNIA REPAIR Social History: TOBACCO: reports that he has never smoked. He has never used smokeless tobacco. ETOH: reports current alcohol use. Social History Substance and Sexual Activity Drug Use No Family History: Family History Problem Relation Name Age of Onset Heart disease Mother Cancer Father Screening: unknown Clinical information reviewed: Physical Exam Airway Mallampati: III TM distance: >3 FB Neck ROM: full Mouth Open: normalendotracheal tube not in place Cardiovascular Dental (+) chipped Comments: Permanent LEFT lower bridge dentition normal Pulmonary Abdominal Anesthesia Plan patient is NPO appropriate Any family history or previous problems with anesthesia no ASA 3 general Any family history or previous problems with anesthesia no The patient is not a current smoker. Anesthetic plan and risks discussed with patient. ERAS Type 12/26/23 Chart reviewed. DOS orders for anesthesia placed according to ERAS protocol. General eras NS, reduced GFR No celebrex Lana Carlin, 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 Screening Labs: Lab Results Component Value Date WBC 7.5 10/13/2023 HGB 12.5 (L) 10/13/2023 HCT 39.8 10/13/2023 MCV 88.8 10/13/2023 PLT 280 10/13/2023 Lab Results Component Value Date SODIUM 142 04/10/2023 NA 132 (L) 10/03/2023 POTASSIUM 4.4 04/10/2023 K 4.7 10/03/2023 CHLORIDE 105 04/10/2023 CL 100 10/03/2023 CO2 27 10/03/2023 BUN 22 (H) 10/03/2023 CREATININE 1.41 (H) 10/03/2023 GLUCOSE 137 (H) 10/03/2023 CALCIUM 8.6 10/03/2023 PROT 6.7 10/03/2023 ALKPHOS 64 10/03/2023 AST 25 10/03/2023 ALT 16 10/03/2023 EGFR 48.2 (L) 10/03/2023 GLOB 2.6 04/10/2023 No echocardiogram results found for the past 14 days 10/03/23 ECG 12-LEAD 10/03/2023 10:47 AM (Final) Impression 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 Images from the original note were not included. [facility] [address] [facility] [address] Dept: [phone] Dept Loc: [phone] Subjective Chief Complaint: Mr. Sales is a 88 y.o. male who presentsfor pre-operative evaluation. Planned surgery: cystoscopy Surgeon: Dr. Marcos Date of Surgery: 01/05/2024 Patient is scheduled for surgery January 05, 2024 and preoperative testing on December 29, 2023. Currently has a urinary catheter due to urinary retention and BPH. He is scheduled for cystoscopy. 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 He will have been on anticoagulant for 3 months since the last episode. 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 For the procedure he will need to be off of the anticoagulant 2 days prior to surgery and 2 days after. Review of Systems Constitutional: Negative for activity change, appetite change, diaphoresis, fatigue, fever and unexpected weight change. Respiratory: Positive for cough. Negative for apnea, chest tightness and shortness of breath. Cardiovascular: Negative for chest pain, palpitations and leg swelling. Gastrointestinal: Negative. Genitourinary: Urinary catheter Musculoskeletal: Negative. Neurological: Negative for dizziness, light-headedness and headaches. Psychiatric/Behavioral: Negative. Functional Capacity (>4 METS implies low cardiovascular risk from surgery): Do yardwork, such as raking leaves, weeding,or pushing a power mower (4.50 METs) Jose's Simple Cardiac RiskIndex: High-risk surgery (intraperitoneal, intrathoracic or suprainguinalvascular surgery): no Coronary artery disease: yes - 1 Point Congestive heart failure: no History of cerebrovascular disease: no Insulin treatment for diabetes mellitus: no Preoperative serumcreatinine > 2.0mg/dL: pending preoperative testing on 12/29/2023 Total: pending results of preop testing for creatinine Interpretation: 0Points Class I 1 Point Class II 2 Points Class III >=3 Points Class IV Class: pending preop testing Objective BP 115/72 Pulse 81 Temp 36.9 C (98.4 F) (Infrared) Resp 24 Wt 205 lb 9.6 oz (93.3 kg) SpO2 93% BMI 29.50 kg/m Physical Exam Constitutional: General: He is not in acute distress. Appearance: Normal appearance. He is not ill-appearing. HENT: Head: Normocephalic and atraumatic. Right Ear: Tympanic membrane normal. Left Ear: Tympanic membrane normal. Nose: Nose normal. Mouth/Throat: Mouth: Mucous membranes are moist. Pharynx: Oropharynx is clear. No posterior oropharyngeal erythema. Eyes: Conjunctiva/sclera: Conjunctivae normal. Cardiovascular: Rate and Rhythm: Normal rate and regular rhythm. Pulses: Normal pulses. Heart sounds: Normal heart sounds. Pulmonary: Effort: Pulmonary effort is normal. Breath sounds: Normal breath sounds. Abdominal: General: Bowel sounds are normal. Palpations: Abdomen is soft. Tenderness: There is no abdominal tenderness. Genitourinary: Comments: Urinary catheter draining clear yellow urine Musculoskeletal: Right lower leg: No edema. Left lower leg: No edema. Comments: Gait steady and ambulates without assistance Lymphadenopathy: Cervical: No cervical adenopathy. Skin: General: Skin is warm and dry. Neurological: Mental Status: He is alert and oriented to person, place, and time. Psychiatric: Mood and Affect: Mood normal. Behavior: Behavior normal. Thought Content: Thought content normal. Assessment/Plan 1. Pre-operative clearance [x] No CV contraindications to surgery, as per ACC / AHA guidelines [] Postponesurgery for noninvasive testing Patient medically optimized for surgery. He does have pending preadmission testing which should include an updated CBC and BMP for renal functioning. His previous labs completed in September were relatively good and his creatinine was below 2. Discussed increased risk of thrombosis, PE or stroke with being off of the anticoagulant for the surgery. He would like to proceed with the surgery as scheduled. Follow-up:Follow up for with specialist. KALLIE Pacheco CNP documented in this encounter [facility] 12-18-2023 Telephone encounter Note Lvm for Pt with d/t/l and instructions for PAT/Surgery Doctor: Priti PATE (arrive 15 min early): 12/29/23 at 10:00am at [facility] PAT instructions: Please bring photo ID, insurance card, list of all current medications Surgery: 01/05/24 at 8:30am at [facility] Surgery arrival time: 6:30am Surgery instructions: Nothing to eat after midnight. Can have clear liquids black coffee (no cream or dairy), tea, water, Sprite, apple juice, Gatorade (no reds or purples) up until arrival time. Medication instructions: Hold Aspirin, fish oil and over the counter vitamins 3 days prior to surgery Post op follow-up: [facility] 12-18-2023 Miscellaneous Notes Lvm for Pt with d/t/l and instructions for PAT/Surgery Doctor: Priti PAT (arrive 15 min early): 12/29/23 at 10:00am at [facility] PAT instructions: Please bring photo ID, insurance card, list of all current medications Surgery: 01/05/24 at 8:30am at [facility] Surgery arrival time: 6:30am Surgery instructions: Nothing to eat after midnight. Can have clear liquids black coffee (no cream or dairy), tea, water, Sprite, apple juice, Gatorade (no reds or purples) up until arrival time. Medication instructions: Hold Aspirin, fish oil and over the counter vitamins 3 days prior to surgery Post op follow-up: OR Request for Priti PROCEDURE: cystoscopy, transurethral resection of prostate, insertion of suprapubic tube DIAGNOSIS: BPH, urinary retention FACILITY: [facility] DETAILS: STO ANESTHESIA: GENERAL TIME REQUESTED: 2hr DATE REQUESTED: ROUTINE SURGERY ORDERS: will be Placed by Emily Marcos POST OP FOLLOW UP: Void trial nurse visit 7-10 days REP REQUESTED: No SPECIAL NEEDS: none PAT: yes MEDICAL CLEARANCE: See message from PCP regarding anticoagulation Ok to hold xarelto 2 days prior and restart 1 day after documented in this encounter [facility] 12-16-2023 Note OR Request for Priti PROCEDURE: cystoscopy, transurethral resection of prostate, insertion of suprapubic tube DIAGNOSIS: BPH, urinary retention FACILITY: [facility] DETAILS: STO ANESTHESIA: GENERAL TIME REQUESTED: 2hr DATE REQUESTED: ROUTINE SURGERY ORDERS: will be Placed by Emily Marcos POST OP FOLLOW UP: Void trial nurse visit 7-10 days REP REQUESTED: No SPECIAL NEEDS: none PAT: yes MEDICAL CLEARANCE: See message from PCP regarding anticoagulation Ok to hold xarelto 2 days prior and restart 1 day after [facility] 12-16-2023 Telephone encounter Note OR Request for Priti PROCEDURE: cystoscopy, transurethral resection of prostate, insertion of suprapubic tube DIAGNOSIS: BPH, urinary retention FACILITY: [facility] DETAILS: STO ANESTHESIA: GENERAL TIME REQUESTED: 2hr DATE REQUESTED: ROUTINE SURGERY ORDERS: will be Placed by Emily Marcos POST OP FOLLOW UP: Void trial nurse visit 7-10 days REP REQUESTED: No SPECIAL NEEDS: none PAT: yes MEDICAL CLEARANCE: See message from PCP regarding anticoagulation Ok to hold xarelto 2 days prior and restart 1 day after [facility] 12-16-2023 History of Present illness Narrative Images from the original note were not included. Sana Marcos DO Urology Office Visit Established patient [facility] [address] [facility] [address] Dept: [phone] Dept Loc: [phone] PATIENT NAME: Ciro Sales DATE OF : 1935 REFERRING PROVIDER: No ref. provider found PCP: Hermann Damian MD DATE OF VISIT: 12/16/23 CHIEF COMPLAINT: Chief Complaint Patient presents with Follow-up Urinary Retention Discuss surgery options Impression: Diagnoses and all orders for this visit: Urinary retention BPH with obstruction/lower urinary tract symptoms - finasteride (Proscar) 5 MG tablet; Take 1 tablet (5 mg) by mouth daily. Do not crush, chew, or split. Constipation, unspecified constipation type - polyethylene glycol, PEG, 3350 (MiraLax) 17 GM/SCOOP powder; Take 17 g by mouth daily. Acute pulmonary embolism, unspecified pulmonary embolism type, unspecified whether acute cor pulmonale present (HCC) . Plan: Will send message to PCP regarding timing of surgery Would need to hold Xarelto 2 days prior to surgery and likely 2 days after surgery If unable to hold xarelto, would not recommend surgery at this time Continue Q 4 week catheter changes If we are able to get Cysto/TURP/SPT scheduled then would plan for catheter change with urine culture about 2 weeks prior to surgery date Will contact pt once we head back from primary team Follow Up: Follow up in about 2 weeks (around 12/30/2023) for nurse visit catheter change . Sana Marcos DO Reconstructive Urology [facility] Subjective: Mr. Sales is a 88 y.o. male who presents to the office for BPH/urinary retention . Records have been reviewed HPI HPI He is on xarelto for DVT/PE which was found in early September 2023 10/07/23 had surgery planned (TURP and SPT insertion) however this was cancelled as he was admitted with a PE He would like to proceed with surgery when able to schedule Understands that we need to weigh risks and benefits of holding anticoagulation and discuss appropriate timing of surgery Will start finasteride at this time This will potentially help with prostatic bleeding/varices are time of surgery 09/03/23 VT - unable to void. Switched to Alfuzosin due to side effects from tamsulosin 08/18/22 VT - unable to void. Tamsulosin BID 08/02/23 Consult for retention after spinal surgery on 07/30. > 1 L UOP Known hx of BPH, Elevated PSA Tobacco History reports that he has never smoked. He has never used smokeless tobacco. Review of Systems Review of Systems Constitutional: Negative. HENT: Negative. Cardiovascular: Negative for leg swelling. Genitourinary: Positive for difficulty urinating. Musculoskeletal: Positive for back pain and gait problem. Neurological: Positive for weakness. Past Medical History: Past Medical History: Diagnosis Date Acute deep vein thrombosis (DVT) of popliteal vein of left lower extremity (HCC) 11/18/2022 11/04/2022. 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/2023 Anemia Arthritis Cancer (CMS/HCC) (HCC) BcC of nose DVT (deep venous thrombosis) (HCC) LLE GERD (gastroesophageal reflux disease) History of elevated PSA Hyperlipidemia Hypertension Poison gt 11/22/2020 Umbilical hernia without obstruction or gangrene SCHEDULED FOR THE SURGERY ON 05/28 Viral URI with cough 04/11/2022 Past Surgical History: Past Surgical History: Procedure Laterality Date CATARACT EXTRACTION Right COLONOSCOPY HEMORRHOID SURGERY 1999 SHB HERNIA REPAIR Right inguinal LAMINECTOMY 07/31/2023 L2, L3, L4, L5 laminectomy L4-L5 fusion NOSE SURGERY A KID UMBILICAL HERNIA REPAIR 05/28/2019 Medications Current Outpatient Medications: ASCORBIC ACID PO, Take 500 mg by mouth before bedtime., Disp: , Rfl: Calcium Citrate-Vitamin D (CALCIUM CITRATE + PO), Take 600 mg by mouth before bedtime., Disp: , Rfl: CHOLECALCIFEROL PO, Take 125 mcg by mouth before bedtime., Disp: , Rfl: ciclopirox (Loprox) 0.77 % cream, Apply topically 2 times daily x4 weeks to affected toenails, Disp: 90 g, Rfl: 0 fluticasone (Flonase) 50 MCG/ACT nasal spray, Administer 2 sprays into each nostril daily. Shake gently. Before first use, prime pump. After use, clean tip and replace cap., Disp: 16 g, Rfl: 5 guaiFENesin (Mucinex) 600 MG 12 hr tablet, Take 1 tablet (600 mg) by mouth 2 times daily. Do not crush, chew, or split., Disp: 60 tablet, Rfl: 3 Multiple Vitamins-Minerals (CENTRUM SILVER 50+MEN PO), Take by mouth 1 (one) time each day., Disp: , Rfl: NON FORMULARY, 2 times daily as needed. Unk eye drop, Disp: , Rfl: pantoprazole (ProtoNix) 40 MG EC tablet, Take 40 mg by mouth daily., Disp: , Rfl: rivaroxaban (Xarelto) 20 MG tablet, Take 1 tablet (20 mg) by mouth daily. Take with food., Disp: 90 tablet, Rfl: 1 senna-docusate sodium (Senokot-S) 8.6-50 MG tablet, Take 1 tablet by mouth Daily as needed for constipation (if no bowel movement in 3 days)., Disp: 30 tablet, Rfl: 1 valsartan (Diovan) 40 MG tablet, Take 1 tablet (40 mg) by mouth daily., Disp: 90 tablet, Rfl: 1 famotidine (Pepcid) 20 MG tablet, Take by mouth., Disp: , Rfl: finasteride (Proscar) 5 MG tablet, Take 1 tablet (5 mg) by mouth daily. Do not crush, chew, or split., Disp: 90 tablet, Rfl: 3 polyethylene glycol, PEG, 3350 (MiraLax) 17 GM/SCOOP powder, Take 17 g by mouth daily., Disp: 850 g, Rfl: 3 Vitals: BP 106/78 Pulse 90 Ht 5' 10 (1.778 m) Wt 205 lb (93 kg) BMI 29.41 kg/m Physical Exam Physical Exam Constitutional: Appearance: Normal appearance. Pulmonary: Effort: Pulmonary effort is normal. Musculoskeletal: Right lower leg: No edema. Left lower leg: No edema. Skin: General: Skin is warm and dry. Neurological: Mental Status: He is alert. Labs: Lab Results Component Value Date COLORU Yellow 10/04/2023 CLARITYU Turbid (A) 10/04/2023 KETONESU Negative 10/04/2023 PROTUR 50 (A) 10/04/2023 UROBILINOGEN 2 (A) 10/04/2023 HEMOGLOBIN Date Value Ref Range Status 10/13/2023 12.5 (L) 13.2 - 17.1 g/dL Final 08/21/2023 11.3 (L) 13.2 - 17.1 g/dL Final 04/03/2023 14.1 13.2 - 17.1 g/dL Final Hemoglobin Date Value Ref Range Status 10/04/2023 10.6 (L) 13.0 - 18.0 g/dL Final 10/03/2023 11.6 (L) 13.0 - 18.0 g/dL Final 10/02/2023 12.1 (L) 13.0 - 18.0 g/dL Final HEMATOCRIT Date Value Ref Range Status 10/13/2023 39.8 38.5 - 50.0 % Final 08/21/2023 35.7 (L) 38.5 - 50.0 % Final 04/03/2023 41.2 38.5 - 50.0 % Final Hematocrit Date Value Ref Range Status 10/04/2023 33.6 (L) 40.0 - 52.0 % Final 10/03/2023 35.6 (L) 40.0 - 52.0 % Final 10/02/2023 39.3 (L) 40.0 - 52.0 % Final PSA Total Date Value Ref Range Status 04/12/2021 10.666 (A) <4.000 ng/mL Final Comment: Testing performed on the [employer] [facility] using an immunometric methodology. Results obtained by different methods should not be used interchangeably. 04/07/2019 12.805 (A) <4.000 ng/mL Final Comment: Testing performed on the [employer] [facility] using an immunometric methodology. Results obtained by different methods should not be used interchangeably. documented in this encounter [facility] 11-12-2023 Note Please call patient or and let them know I placed a referral to [facility] specialist. They are located at [address] [place] [address]. [phone] ---- Hopefully they may be able to get him in sooner. [facility] 11-12-2023 Evaluation + Plan note Associated Problem(s): Chronic cough Likely secondary to chronic postnasal drainage. Recommend continuing with fluticasone nasal spray. Previously referred to ENT, as we had tried multiple things without significant improvement in his symptoms. Patient reports appointment with ENT is not until the end of December and is requesting a referral to another provider to see if they can get him in sooner. Will place referral [facility] 11-12-2023 Miscellaneous Notes Associated Problem(s): Chronic cough Likely secondary to chronic postnasal drainage. Recommend continuing with fluticasone nasal spray. Previously referred to ENT, as we had tried multiple things without significant improvement in his symptoms. Patient reports appointment with ENT is not until the end of December and is requesting a referral to another provider to see if they can get him in sooner. Will place referral Associated Problem(s): Anemia Resolving. Patient has continued his iron supplement over the past month and a half. Has been having some constipation secondary to the iron supplement. Most recent iron levels had improved significantly. Okay to stop iron supplement at this time documented in this encounter [facility] 11-12-2023 Evaluation + Plan note Associated Problem(s): Anemia Resolving. Patient has continued his iron supplement over the past month and a half. Has been having some constipation secondary to the iron supplement. Most recent iron levels had improved significantly. Okay to stop iron supplement at this time [facility] 11-12-2023 History of Present illness Narrative Patient was identified by name and Date of . Images from the original note were not included. 11/12/2023 Ciro Sales (: 1935) is a 88 y.o. male , Established patient, here for evaluation of the following chief complaint(s): Follow-up ASSESSMENT/PLAN: 1. Chronic cough Assessment & Plan: Likely secondary to chronic postnasal drainage. Recommend continuing with fluticasone nasal spray. Previously referred to ENT, as we had tried multiple things without significant improvement in his symptoms. Patient reports appointment with ENT is not until the end of December and is requesting a referral to another provider to see if they can get him in sooner. Will place referral Orders: - benzonatate (Tessalon) 200 MG capsule; Take 1 capsule (200 mg) by mouth 3 times daily as needed for cough for up to 7 days. Do not crush or chew., Starting Fri11/12/2023, Until Fri11/19/2023 at 2359, Normal - External referral to ENT 2. Anemia, unspecified type Assessment & Plan: Resolving. Patient has continued his iron supplement over the past month and a half. Has been having some constipation secondary to the iron supplement. Most recent iron levels had improved significantly. Okay to stop iron supplement at this time Follow up for with primary care provider as scheduled. SUBJECTIVE/OBJECTIVE: ALFREDA - Ciro Sales (: 1935) is a 88 y.o. male , Established patient, here for the evaluation of the following chief complaint(s): Follow-up Presents with today for continued cough and sinus drainage, was referred to ENT but his appointment is not until the end of December. He would like referral to another provider to see if he can get in sooner. Denies any increased symptoms. He also would like to try Tessalon Perles for his cough as he has taken those in the past. Denies any fever or chills. Urinary retention-continues to have Lopez catheter and reports he is going to see urology next month and hopefully have it removed. Recently had a pulmonary embolism and was restarted on anticoagulants. He is currently on Xarelto 20 mg daily. Previously on Eliquis. Anemia-was placed on ferrous sulfate to help with his anemia. Last CBC was markedly improved and his iron levels had also improved. Last checked labs 1 month ago. He would like to stop taking the ferrous sulfate as it causes him constipation. Prior to Admission medications Medication Sig Start Date End Date Taking? Authorizing Provider alfuzosin ER (Uroxatral) 10 MG 24 hr tablet Take 1 tablet (10 mg) by mouth daily. Do not crush, chew, or split. 09/03/23 12/02/23 Nona Collins APRN - JERZY ASCORBIC ACID PO Take 500 mg by mouth before bedtime. Historical Provider, Calcium Citrate-Vitamin D (CALCIUM CITRATE + PO) Take 600 mg by mouth before bedtime. Historical Provider, CHOLECALCIFEROL PO Take 125 mcg by mouth before bedtime. Historical Provider, MD ciclopirox (Loprox) 0.77 % cream Apply topically 2 times daily x4 weeks to affected toenails 09/11/23 KALLIE Carter CNP famotidine (Pepcid) 20 MG tablet Take by mouth. Historical Provider, ferrous sulfate 325 (65 Fe) MG tablet Take 1 tablet (325 mg) by mouth every other day. 10/14/23 10/13/24 GretchenKALLIE Quintero CNP fluticasone (Flonase) 50 MCG/ACT nasal spray Administer 2 sprays into each nostril daily. Shake gently. Before first use, prime pump. After use, clean tip and replace cap. 09/11/23 09/10/24 GretchenKALLIE Quintero CNP guaiFENesin (Mucinex) 600 MG 12 hr tablet Take 1 tablet (600 mg) by mouth 2 times daily. Do not crush, chew, or split. 10/13/23 02/10/24 GretchenKALLIE Quintero CNP Multiple Vitamins-Minerals (CENTRUM SILVER 50+MEN PO) Take by mouth 1 (one) time each day. Historical Provider, NON FORMULARY 2 times daily as needed. Unk eye drop Historical Provider, polyethylene glycol, PEG, 3350 (MiraLax) 17 GM/SCOOP powder Take 17 g by mouth daily. 09/29/23 11/28/23 Sana Marcos DO rivaroxaban (Xarelto) 20 MG tablet Take 1 tablet (20 mg) by mouth daily. Take with food. 11/11/23 Hermann Damian MD senna-docusate sodium (Senokot-S) 8.6-50 MG tablet Take 1 tablet by mouth Daily as needed for constipation (if no bowel movement in 3 days). 09/29/23 09/28/24 Sana Marcos DO valsartan (Diovan) 40 MG tablet Take 1 tablet (40 mg) by mouth daily. 10/13/23 04/10/24 KALLIE Carter CNP apixaban (Eliquis) 5 MG tablet Take 1 tablet (5 mg) by mouth 2 times daily. 11/03/23 11/07/23 KALLIE Vallecillo CNP rivaroxaban (Xarelto) 20 MG tablet Take 1 tablet (20 mg) by mouth daily. Take with food. 11/07/23 11/10/23 Hermann Damian MD Review of Systems Constitutional: Positive for fatigue (Unchanged). Negative for activity change, chills and fever. Respiratory: Positive for cough. Negative for chest tightness, shortness of breath and wheezing. Cardiovascular: Negative for chest pain and leg swelling. Neurological: Negative. Vitals: 11/12/23 1020 11/12/23 1102 BP: (!) 170/87 133/75 Pulse: 82 82 Resp: 16 Temp: 37.1 C (98.7 F) TempSrc: Infrared SpO2: 94% Weight: 205 lb 3.2 oz (93.1 kg) Physical Exam Constitutional: Appearance: Normal appearance. HENT: Head: Normocephalic and atraumatic. Eyes: Conjunctiva/sclera: Conjunctivae normal. Cardiovascular: Rate and Rhythm: Normal rate and regular rhythm. Pulses: Normal pulses. Heart sounds: Normal heart sounds. Pulmonary: Effort: Pulmonary effort is normal. Genitourinary: Comments: Lopez catheter draining clear yellow urine Musculoskeletal: Right lower leg: No edema. Left lower leg: No edema. Neurological: Mental Status: He is alert and oriented to person, place, and time. An electronic signature was used to authenticate this note. KALLIE Pacheco CNP 11/12/2023 4:35 PM documented in this encounter [facility] 11-12-2023 Instructions KALLIE Carter CNP - 11/12/2023 10:20 AM EDT Ok to stop taking iron. documented in this encounter [facility] 11-03-2023 Telephone encounter Note S: The patient is calling the [facility] about a cough B: This has been present since July A: The cough productive and Mucinex is helping some but not completely. No additional symptoms noted. He is not short of breath or wheezing; no lower extremity edema. R: Offered an appointment but he prefers to wait until next week to schedule Reason for Disposition Cough has been present for > 3 weeks Protocols used: Cough - Acute Sdh-Mbsaoqnatd-OLUPK-AH [facility] 11-03-2023 Miscellaneous Notes S: The patient is calling the [facility] about a cough B: This has been present since July A: The cough productive and Mucinex is helping some but not completely. No additional symptoms noted. He is not short of breath or wheezing; no lower extremity edema. R: Offered an appointment but he prefers to wait until next week to schedule Reason for Disposition Cough has been present for > 3 weeks Protocols used: Cough - Acute Fft-Imvalkcyer-TGHSG-AH documented in this encounter [facility] 10-16-2023 Telephone encounter Note Pts called office needing to R/S his 12/24/2023 josefina. I rescheduled him for 12/16/2023. [facility] 10-16-2023 Miscellaneous Notes Pts called office needing to R/S his 12/24/2023 josefina. I rescheduled him for 12/16/2023. documented in this encounter [facility] 10-15-2023 History of Present illness Narrative NEUROSURGERY and SPINE FOLLOW-UP NOTE Patient Name: Ciro Sales Patient : 1935 PCP: Hermann Damian MD History of Present Illness: 88 y.o. presents with postop follow-up. He underwent L2, L3, L4, L5 laminectomy, L4-5 fusion on 07/31/2023. From a surgery standpoint, he is doing well with minimal back pain or leg symptoms. He was recently hospitalized due to DVT and PE, was started on Eliquis. He states he is easily fatigued and complains of chronic cough, has been following with his PCP. He is following with urology for urinary retention. Overall he is pleased with his surgical results. Chief Complaint Patient presents with Follow-up Patient present for three month follow up with xrays. Past Medical History: Past Medical History: Diagnosis Date Acute deep vein thrombosis (DVT) of popliteal vein of left lower extremity (HCC) 11/18/2022 11/04/2022. 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/2023 Anemia Arthritis Cancer (CMS/HCC) ([facility]) BcC of nose DVT (deep venous thrombosis) ([facility]) LLE GERD (gastroesophageal reflux disease) History of elevated PSA Hyperlipidemia Hypertension Poison gt 11/22/2020 Umbilical hernia without obstruction or gangrene SCHEDULED FOR THE SURGERY ON 05/28 Viral URI with cough 04/11/2022 Past Surgical History: Past Surgical History: Procedure Laterality Date CATARACT EXTRACTION Right COLONOSCOPY HEMORRHOID SURGERY 1999 [facility] HERNIA REPAIR Right inguinal LAMINECTOMY 07/31/2023 L2, L3, L4, L5 laminectomy L4-L5 fusion NOSE SURGERY A KID UMBILICAL HERNIA REPAIR 05/28/2019 Home Medications: Prior to Admission medications Medication Sig Start Date End Date Taking? Authorizing Provider alfuzosin ER (Uroxatral) 10 MG 24 hr tablet Take 1 tablet (10 mg) by mouth daily. Do not crush, chew, or split. 09/03/23 12/02/23 Yes Nona Collins APRN - JERZY apixaban (Eliquis) 5 MG tablet Take 2 tablets (10 mg) by mouth 2 times daily for 5 days, THEN 1 tablet (5 mg) 2 times daily. 10/06/23 12/10/23 Yes Conrad Louie DO ASCORBIC ACID PO Take 500 mg by mouth before bedtime. Yes Historical Provider, Calcium Citrate-Vitamin D (CALCIUM CITRATE + PO) Take 600 mg by mouth before bedtime. Yes Historical Provider, CHOLECALCIFEROL PO Take 125 mcg by mouth before bedtime. Yes Historical Provider, ciclopirox (Loprox) 0.77 % cream Apply topically 2 times daily x4 weeks to affected toenails 09/11/23 Yes Gretchen Bridenthal, 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 famotidine (Pepcid) 20 MG tablet Take by mouth. Yes Historical Provider, ferrous sulfate 325 (65 Fe) MG tablet Take 1 tablet (325 mg) by mouth every other day. 10/14/23 10/13/24 Yes Gretchen Bridenthal, [employer] - 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 fluticasone (Flonase) 50 MCG/ACT nasal spray Administer 2 sprays into each nostril daily. Shake gently. Before first use, prime pump. After use, clean tip and replace cap. 09/11/23 09/10/24 Yes Gretchen Bridenthal, 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 guaiFENesin (Mucinex) 600 MG 12 hr tablet Take 1 tablet (600 mg) by mouth 2 times daily. Do not crush, chew, or split. 10/13/23 02/10/24 Yes Gretchen Bridenthal, [employer] - 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 Multiple Vitamins-Minerals (CENTRUM SILVER 50+MEN PO) Take by mouth 1 (one) time each day. Yes Historical Provider, NON FORMULARY 2 times daily as needed. Unk eye drop Yes Historical Provider, polyethylene glycol, PEG, 3350 (MiraLax) 17 GM/SCOOP powder Take 17 g by mouth daily. 09/29/23 11/28/23 Yes Sana Marcos DO senna-docusate sodium (Senokot-S) 8.6-50 MG tablet Take 1 tablet by mouth Daily as needed for constipation (if no bowel movement in 3 days). 09/29/23 09/28/24 Yes Sana Marcos DO valsartan (Diovan) 40 MG tablet Take 1 tablet (40 mg) by mouth daily. 10/13/23 04/10/24 Yes Gretchen Bridenthal, [employer] - 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 Ferrous Sulfate Dried (FERROUS SULFATE CR PO) Take 65 mg by mouth 1 (one) time each day. 10/14/23 Historical Provider, guaiFENesin (Mucinex) 600 MG 12 hr tablet Take 1 tablet (600 mg) by mouth 2 times daily. Do not crush, chew, or split. 10/06/23 10/13/23 Conrad Louie DO valsartan (Diovan) 40 MG tablet Take 1 tablet (40 mg) by mouth daily. 09/11/23 10/13/23 KALLIE Carter CNP Allergies: Hydrocodone, Levonorgestrel-ethinyl estrad, Lisinopril, and Seasonal ic [cholestatin] Social History: TOBACCO: reports that he has never smoked. He has never used smokeless tobacco. ETOH: reports current alcohol use. RECREATIONAL DRUG USE: Social History Substance and Sexual Activity Drug Use No Family History: Family History Problem Relation Name Age of Onset Heart disease Mother Cancer Father Review of Systems: Review of Systems Constitutional: Positive for fatigue. Negative for chills and fever. Respiratory: Positive for cough. Negative for shortness of breath. Cardiovascular: Negative for chest pain. Gastrointestinal: Negative for abdominal pain. Musculoskeletal: Negative for back pain and neck pain. Neurological: Negative for weakness and numbness. Physical Examination: Vitals: 10/15/23 0922 BP: 109/69 Pulse: 91 Physical Exam Constitutional: Appearance: Normal appearance. HENT: Head: Normocephalic and atraumatic. Nose: Nose normal. Mouth/Throat: Mouth: Mucous membranes are moist. Pharynx: Oropharynx is clear. Eyes: Extraocular Movements: Extraocular movements intact. Conjunctiva/sclera: Conjunctivae normal. Cardiovascular: Rate and Rhythm: Normal rate and regular rhythm. Pulmonary: Effort: Pulmonary effort is normal. No respiratory distress. Abdominal: General: There is no distension. Palpations: Abdomen is soft. Tenderness: There is no abdominal tenderness. Genitourinary: Comments: Lopez in place Musculoskeletal: General: No tenderness. Normal range of motion. Cervical back: Normal range of motion and neck supple. Skin: General: Skin is warm and dry. Neurological: General: No focal deficit present. Mental Status: He is alert and oriented to person, place, and time. Sensory: No sensory deficit. Motor: No weakness. Comments: Motor strength 5/5 UE and LE Sensation intact to light touch Lumbar incision well healed Psychiatric: Mood and Affect: Mood normal. Behavior: Behavior normal. Gait Ambulates with a walker Results Labs: Last 24hrs No results found for this or any previous visit (from the past 24 hour(s)). Radiology Personal review: Plain films of the lumbar spine show postoperative changes L2-L5, there is no evidence of hardware failure. ASSESSMENT / PLAN : He is status post L2-L5 laminectomy with L4-L5 fusion. He is doing very well, his preop symptoms of pain are gone. The length of time he can stand the distance he can walk is better. He has had some medical complications urology alexander as well as DVT that his medical doctors are treating him for now. Today we released him to activities he feels up to doing, he can now follow-up with us on an as-needed basis. Diagnosis Plan 1. Lumbar stenosis with neurogenic claudication documented in this encounter [facility] 10-14-2023 Telephone encounter Note Notified Manju Bland's , who is listed as listed as a contact we can speak to. States that the only Iron supplement [facility] has is 65 mg. Is asking for prescription of the ferrous sulfate 325 mg to be called in to [facility]. [facility] 10-14-2023 Telephone encounter Note ----- Message from KALLIE Carter CNP sent at 10/14/2023 6:31 AM EDT ----- Iron levels improving, but still low, recommend continuing iron sulfate 325 mg every other day. Cbc pending [facility] 10-14-2023 Miscellaneous Notes Notified Manju Bland's , who is listed as listed as a contact we can speak to. States that the only Iron supplement [facility] has is 65 mg. Is asking for prescription of the ferrous sulfate 325 mg to be called in to [facility] East[facility]. ----- Message from KALLIE Carter CNP sent at 10/14/2023 6:31 AM EDT ----- Iron levels improving, but still low, recommend continuing iron sulfate 325 mg every other day. Cbc pending documented in this encounter [facility] 10-13-2023 Evaluation + Plan note Associated Problem(s): Anemia Check CBC and iron studies today. If iron levels good-will be okay to stop iron supplementation [facility] 10-13-2023 Miscellaneous Notes Associated Problem(s): Anemia Check CBC and iron studies today. If iron levels good-will be okay to stop iron supplementation Associated Problem(s): Subacute cough Likely secondary to chronic postnasal drainage. Recommend continuing fluticasone nasal spray. Recommend seeing ENT as we have tried multiple things without significant improvement in his symptoms Associated Problem(s): Acute pulmonary embolism (HCC) Denies any chest pain or shortness of breath. Continue Eliquis. Associated Problem(s): Essential hypertension, benign Blood pressure controlled. Continue valsartan 40 mg daily documented in this encounter [facility] 10-13-2023 Evaluation + Plan note Associated Problem(s): Subacute cough Likely secondary to chronic postnasal drainage. Recommend continuing fluticasone nasal spray. Recommend seeing ENT as we have tried multiple things without significant improvement in his symptoms [facility] 10-13-2023 Evaluation + Plan note Associated Problem(s): Acute pulmonary embolism (HCC) Denies any chest pain or shortness of breath. Continue Eliquis. [facility] 10-13-2023 Evaluation + Plan note Associated Problem(s): Essential hypertension, benign Blood pressure controlled. Continue valsartan 40 mg daily [facility] 10-13-2023 History of Present illness Narrative Patient was identified by name and Date of . Images from the original note were not included. [facility] [address] [place] [id number] Post-Discharge Hospital Follow Up Date of Hospital Admission: 10/03/23 Date of Hospital Discharge: 10/06/23 Readmission Risk Score: Predictive Model Details 28% Factor Value Risk of Hospital Admission or ED Visit Model 34% Is in Relationship Yes 26% Number of ED Visits 1 16% Number of Hospitalizations 3 8% Has Chronic Kidney Disease Yes 5% Has Anemia Yes 5% Has Medicare Yes 5% Has CVD Yes 1% Has PCP Yes ASSESSMENT/PLAN 1. Acute pulmonary embolism, unspecified pulmonary embolism type, unspecified whether acute cor pulmonale present (HCC) Assessment & Plan: Denies any chest pain or shortness of breath. Continue Eliquis. 2. Essential hypertension, benign Assessment & Plan: Blood pressure controlled. Continue valsartan 40 mg daily Orders: - valsartan (Diovan) 40 MG tablet; Take 1 tablet (40 mg) by mouth daily., Starting 10/13/2023, Until 04/10/2024, Normal 3. Anemia, unspecified type Assessment & Plan: Check CBC and iron studies today. If iron levels good-will be okay to stop iron supplementation Orders: - CBC auto differential - Iron and TIBC 4. Subacute cough Assessment & Plan: Likely secondary to chronic postnasal drainage. Recommend continuing fluticasone nasal spray. Recommend seeing ENT as we have tried multiple things without significant improvement in his symptoms Orders: - External referral to ENT 5. Sinus congestion - External referral to ENT Medical Decision Making high Follow up for as directed pending test results. Gretchen Cabrera APRN - JERZY 10/13/23 10:00 AM SUBJECTIVE HPI Inpatient course: Discharge summary reviewed Interval History Patient reports that he did get and start the Eliquis. Denies any chest pain or shortness of breath. Reports his home pulse ox has been in the low 90s. Denies any increased fatigue or bilateral lower extremity swelling. Has been ambulating with his walker. Denies any falls. Continues to have a urinary catheter and will follow-up with urology for urinary retention in December. He was treated for a suspected urinary tract infection with IV antibiotics during his hospitalization. He denies any fever or chills. Continues to have a cough. Postnasal drainage and nasal congestion. We have tried multiple things over the past couple of months without improvement of symptoms. Currently he is using Mucinex and fluticasone nasal spray. I have performed a medication reconciliation during this visit and have reconciled the medications patient is taking as of now against medications ordered at time of hospital discharge. Current Outpatient Medications: alfuzosin ER (Uroxatral) 10 MG 24 hr tablet, Take 1 tablet (10 mg) by mouth daily. Do not crush, chew, or split., Disp: 90 tablet, Rfl: 2 apixaban (Eliquis) 5 MG tablet, Take 2 tablets (10 mg) by mouth 2 times daily for 5 days, THEN 1 tablet (5 mg) 2 times daily., Disp: 60 tablet, Rfl: 0 Calcium Citrate-Vitamin D (CALCIUM CITRATE + PO), Take 600 mg by mouth before bedtime., Disp: , Rfl: ciclopirox (Loprox) 0.77 % cream, Apply topically 2 times daily x4 weeks to affected toenails, Disp: 90 g, Rfl: 0 fluticasone (Flonase) 50 MCG/ACT nasal spray, Administer 2 sprays into each nostril daily. Shake gently. Before first use, prime pump. After use, clean tip and replace cap., Disp: 16 g, Rfl: 5 Multiple Vitamins-Minerals (CENTRUM SILVER 50+MEN PO), Take by mouth 1 (one) time each day., Disp: , Rfl: NON FORMULARY, 2 times daily as needed. Unk eye drop, Disp: , Rfl: polyethylene glycol, PEG, 3350 (MiraLax) 17 GM/SCOOP powder, Take 17 g by mouth daily., Disp: 1020 g, Rfl: 0 ASCORBIC ACID PO, Take 500 mg by mouth before bedtime., Disp: , Rfl: CHOLECALCIFEROL PO, Take 125 mcg by mouth before bedtime., Disp: , Rfl: famotidine (Pepcid) 20 MG tablet, Take by mouth., Disp: , Rfl: Ferrous Sulfate Dried (FERROUS SULFATE CR PO), Take 65 mg by mouth 1 (one) time each day., Disp: , Rfl: guaiFENesin (Mucinex) 600 MG 12 hr tablet, Take 1 tablet (600 mg) by mouth 2 times daily. Do not crush, chew, or split., Disp: 60 tablet, Rfl: 3 senna-docusate sodium (Senokot-S) 8.6-50 MG tablet, Take 1 tablet by mouth Daily as needed for constipation (if no bowel movement in 3 days)., Disp: 30 tablet, Rfl: 1 valsartan (Diovan) 40 MG tablet, Take 1 tablet (40 mg) by mouth daily., Disp: 90 tablet, Rfl: 1 Review of Systems Constitutional: Negative for activity change, chills, fatigue and fever. HENT: Positive for congestion and postnasal drip. Negative for sinus pressure, sinus pain and sore throat. Respiratory: Positive for cough. Negative for chest tightness, shortness of breath and wheezing. Cardiovascular: Negative. Gastrointestinal: Negative. Genitourinary: Indwelling catheter Musculoskeletal: Negative. Neurological: Negative. Psychiatric/Behavioral: Negative. OBJECTIVE BP 131/74 Pulse 94 Temp 37.1 C (98.7 F) (Infrared) Resp 18 Wt 207 lb (93.9 kg) SpO2 92% BMI 29.70 kg/m Physical Exam Constitutional: General: He is not in acute distress. Appearance: Normal appearance. He is not ill-appearing. HENT: Head: Normocephalic and atraumatic. Comments: Hard of hearing Nose: Congestion present. Mouth/Throat: Mouth: Mucous membranes are moist. Pharynx: Oropharynx is clear. No posterior oropharyngeal erythema. Eyes: Conjunctiva/sclera: Conjunctivae normal. Cardiovascular: Rate and Rhythm: Normal rate and regular rhythm. Pulses: Normal pulses. Heart sounds: Normal heart sounds. Pulmonary: Effort: Pulmonary effort is normal. Breath sounds: Normal breath sounds. Abdominal: General: Bowel sounds are normal. Palpations: Abdomen is soft. Tenderness: There is no abdominal tenderness. Genitourinary: Comments: Urinary catheter to Lopez bag Musculoskeletal: Right lower leg: No edema. Left lower leg: No edema. Comments: Presents in a wheelchair today. Lymphadenopathy: Cervical: No cervical adenopathy. Neurological: Mental Status: He is alert and oriented to person, place, and time. documented in this encounter [facility] 10-09-2023 Telephone encounter Note Spoke to pt's . Discussed upcoming appointments. Pt's stated it is hard for them to get into the [place] office for lopez changes. Pt was to have a lopez change with the nurse on 12.23.23 and then follow up with Dr. Marcos on 01.07.24. Moved these two appointments into [address] Marcos to lessen the driving for the pt and his . [facility] 10-09-2023 Miscellaneous Notes Spoke to pt's . Discussed upcoming appointments. Pt's stated it is hard for them to get into the [place] office for lopez changes. Pt was to have a lopez change with the nurse on 12.23.23 and then follow up with Dr. Marcos on 01.07.24. Moved these two appointments into [address] Marcos to lessen the driving for the pt and his . Message released to patient as written. Patient's further questions if applicable: Pt states his appt 10/28/23 seems to soon for him and he would like it cancelled pt also states he would like to discuss surgery sooner then 01/06 he does not wish to wait that long. Please advise. Were all questions from office addressed or relayed to the patient from encounter: Yes All follow up appts cancelled. All lopez cath change and 3 month follow up appts made. LVM advising patient. Also mailed appointment letters Please cancel pt's follow up appointments for nurse visit lopez removal He will need nurse visit lopez change in 3 weeks, and then again Q 4 weeks x 2. I would like to see him in about 3-4 months to discuss surgery Spouse LVM with pts name, and phone number. Spouse stated that surgery was cancelled today due to pt having 4 clots. Spouse stated pt will not be able to have surgery for approx 3-4 months and she would like to schedule surgery. Advised I would send this TE to Dr Marcos and she will determine next step in POC. Spouse verbalized understanding. documented in this encounter [facility] 10-08-2023 Telephone encounter Note Message released to patient as written. Patient's further questions if applicable: Pt states his appt 10/28/23 seems to soon for him and he would like it cancelled pt also states he would like to discuss surgery sooner then 01/06 he does not wish to wait that long. Please advise. Were all questions from office addressed or relayed to the patient from encounter: Yes [facility] 10-08-2023 Miscellaneous Notes Message released to patient as written. Patient's further questions if applicable: Pt states his appt 10/28/23 seems to soon for him and he would like it cancelled pt also states he would like to discuss surgery sooner then 01/06 he does not wish to wait that long. Please advise. Were all questions from office addressed or relayed to the patient from encounter: Yes All follow up appts cancelled. All lopez cath change and 3 month follow up appts made. LVM advising patient. Also mailed appointment letters Please cancel pt's follow up appointments for nurse visit lopez removal He will need nurse visit lopez change in 3 weeks, and then again Q 4 weeks x 2. I would like to see him in about 3-4 months to discuss surgery Spouse LVM with pts name, and phone number. Spouse stated that surgery was cancelled today due to pt having 4 clots. Spouse stated pt will not be able to have surgery for approx 3-4 months and she would like to schedule surgery. Advised I would send this TE to Dr Marcos and she will determine next step in POC. Spouse verbalized understanding. documented in this encounter [facility] 10-08-2023 Telephone encounter Note Noted. Agree with disposition. [facility] 10-08-2023 Miscellaneous Notes Noted. Agree with disposition. Perfect, thank you These medications were sent to [facility] [address] [place] [address] [address] [employer] [facility] [id number] apixaban 5 MG tablet Recommended Follow-up: No follow-up provider specified. Complexity of Follow up: [] Moderate Complexity: follow up within 7-14 calendar days (56694) [x] Severe Complexity: follow up within 7 calendar days (50480) Follow up Testing, Pending results or Referrals at Transitional Care Visit: [] yes [x] no Instructions to MA: Please call patient on day after discharge (must document patient contacted within 2 business days of discharge). Follow up questions for MA: 1. Did you get medications filled and taking them as instructed from discharge? Yes, eliquis and mucinex 2. Are you following your discharge instructions from your hospital stay? Yes 3. Please confirm patient is scheduled for a follow up appointment within the above time frame. 10/13/23 with Ashly documented in this encounter [facility] 10-07-2023 Telephone encounter Note Perfect, thank you [facility] 10-07-2023 Telephone encounter Note These medications were sent to [facility] [address] [place] [address], [place] - [address] [facility] [id number] apixaban 5 MG tablet Recommended Follow-up: No follow-up provider specified. Complexity of Follow up: [] Moderate Complexity: follow up within 7-14 calendar days (22887) [x] Severe Complexity: follow up within 7 calendar days (34316) Follow up Testing, Pending results or Referrals at Transitional Care Visit: [] yes [x] no Instructions to MA: Please call patient on day after discharge (must document patient contacted within 2 business days of discharge). Follow up questions for MA: 1. Did you get medications filled and taking them as instructed from discharge? Yes, eliquis and mucinex 2. Are you following your discharge instructions from your hospital stay? Yes 3. Please confirm patient is scheduled for a follow up appointment within the above time frame. 10/13/23 with Ashly [employer] 10-07-2023 Telephone encounter Note All follow up appts cancelled. All lopez cath change and 3 month follow up appts made. LVM advising patient. Also mailed appointment letters [employer] 10-07-2023 Miscellaneous Notes All follow up appts cancelled. All lopez cath change and 3 month follow up appts made. LVM advising patient. Also mailed appointment letters Please cancel pt's follow up appointments for nurse visit lopez removal He will need nurse visit lopez change in 3 weeks, and then again Q 4 weeks x 2. I would like to see him in about 3-4 months to discuss surgery Spouse LVM with pts name, and phone number. Spouse stated that surgery was cancelled today due to pt having 4 clots. Spouse stated pt will not be able to have surgery for approx 3-4 months and she would like to schedule surgery. Advised I would send this TE to Dr Marcos and she will determine next step in POC. Spouse verbalized understanding. documented in this encounter [facility] 10-07-2023 Telephone encounter Note Please cancel pt's follow up appointments for nurse visit lopez removal He will need nurse visit lopez change in 3 weeks, and then again Q 4 weeks x 2. I would like to see him in about 3-4 months to discuss [facility] [facility] 10-07-2023 Telephone encounter Note Spouse LVM with pts name, and phone number. Spouse stated that surgery was cancelled today due to pt having 4 clots. Spouse stated pt will not be able to have surgery for approx 3-4 months and she would like to schedule surgery. Advised I would send this TE to Dr Marcos and she will determine next step in POC. Spouse verbalized understanding. [facility] 10-06-2023 Miscellaneous Notes Start PACC Note Home Health Referral Educated patient and on Home Care and services available. Patient offered choice of available HHC and agreeable to resume SN/PT/OT services with [facility] at Home - Home Care. Care Types: None Isolation Precautions: No active isolations Social Determinates of Health: Tobacco Use: Low Risk (10/03/2023) Patient History Smoking Tobacco Use: Never Smokeless Tobacco Use: Never Passive Exposure: Not on file Social History Substance and Sexual Activity Alcohol Use Yes Comment: 3-4 per year Social History Substance and Sexual Activity Drug Use No Does the patient have any financial resource strain? No Does the patient have any food insecurities? No Does the patient have any housing instabilities? No If any of the above is noted as yes - consider a STONEMASON SUPERVISOR evaluation once the patient returns home. START PATIENT REGISTRATION INFORMATION Order Information Order Signing Physician: Conrad Louie MD Service Ordered RN ?: Yes Service Ordered PT ?: Yes Service Ordered OT ?: Yes Service Ordered ST ?: No Service Ordered STONEMASON SUPERVISOR?:No Service Ordered DENTISTRY TEACHER?: No Following Physician: Hermann Damian MD Following Physician Overseeing Physician: Hermann Damian MD (Required for Residents only) Agreeable to Follow? Yes Date/Time of Call 10/06/23 7:08 PM, Spoke with: MARLI Care Coordination Same Day SOC?: No Primary Care Physician: Hermann Damian MD Primary Care Physician Primary Care Physician Address: [address] [place] [address], [facility] / [facility] [id number] Visit Instructions: N/A Service Discharge Location Type: Home with Home Health Care Service Facility Name: N/A Service Floor Facility: N/A Service Room No: N/A Demographics Patient Last Name: Stephan Patient First Name: Ciro Language/Communication Barrier: none Service Address: [address] [place] [address] Service City: [facility] [[email or web address] ST: [place] Service ZIP: [phone] Service (home) Other phone numbers: No relevant phone numbers on file. Emergency Contact: Extended Emergency Contact Information Primary Emergency Contact: Manju Sales Relation: Spouse Admission Information Admit Date: 10/03/2023 Patient status at discharge: Inpatient Admitting Diagnosis: Hypoxia [R09.02] Bilateral leg edema [R60.0] Caregiver Information Caregiver First Name: Manju Caregiver Last Name: Stephan Caregiver Relationship to Patient: spouse Caregiver Caregiver Notes: N/A [facility] List No END PATIENT REGISTRATION INFORMATION Pt Home Health goal home COVID Status 1. Do you have any upper respiratory symptoms (cough, SOB, Fever)? No 2. Have you been exposed to anyone with COVID-19 Virus? No Answer only if pending or positive for COVID-19? 1. Agreeable to wear PPE at each visit? No 2. Is the hospital supplying them with PPE upon Discharge? No Start PACC Summary General Report/ Additional Comments This is an 88 yo M who presented with shortness of breath and hypoxia who had an elevated d-dimer and CTA chest suggestive of acute pulmonary embolism. He underwent an echocardiogram which showed a normal EF. Patient was evaluated by pulmonology and thought to possibly be small mild PE but treatment was unchanged regardless. He was agreeable to being started on Eliquis. Patient did also have ?CAUTI and treated with course of Rocephin. He symptomatically improved and was discharged home. Urology was updated about events and surgery cancelled. Discharge Date: pending Referral Source-PACC: (Hospital/Unit): [facility] / H-[id number]/[id number] A End PACC Note Care Managment Initial Assessment Date: 10/06/2023 Patient Name: Ciro Sales : 1935 Patient Information Source of Information: Patient Cognition/Language: WFL - Within Functional Limits Permission given to speak with patient self pay representative/caregiver as indicated: Yes Confirmation of Payer with patient/family: Yes Payer Name: [employer] Medicare [place]: No Confirmation of Primary Care Physician: Confirmed PCP Name: Hermann Damian Seen in last 2 years?: Yes Primary Caregiver: Self If assistance needed, confirmed caregiver ready, willing and able to care for patient at discharge: Yes Confirmed with: Manju Sales, spouse Living Arrangements Current Residence: House Number of Floors 1 Number of Entry Steps: 3 Bed/Bath Levels: Both first floor Facility: Facility Name: Plan to Return: Lives with: Spouse/significant other Support Systems: Spouse/significant other, Children, Family members Activities of Daily Living Ambulation: Independent Bathing/Dressing: Independent Elimination/Continence/Toileting: Independent Feeding: Independent Who Assists with Activities of Daily Living: Instrumental Activities of Daily Living Prescription Coverage: Yes Pharmacy Used: [facility] Medication Management: Independent Transportation/Shopping: Transportation Mode: Car Needs Assistance with Transportation at Discharge: No Meal Preparation: Independent Laundry/Cleaning: Independent Finances/Bill Paying: Independent Communication: Types of Care Services/Equipment Utilized Care Services: Dialysis Type: Durable Medical Equipment: Cane, Walker Patient's Goal/Discharge Plan Patient expects to be discharged to: home with home care Discharge Planning Actions: No needs identified Patient's Choice Rights and [employer] and Collaborative Relationships Disclosed as Indicated for Post-Acute Care: Interdisciplinary Team Engagement: Home Health Care Social Work Referral for: Additional Information: Patient admitted to for hypoxia. Regular diet noted. Lopez noted. IV Rocephin noted. Met with pt at bedside, introduced self and explained role of TCC. Pt has insurance with RX coverage, active with PCP. Family in room with patient. Patient lives with spouse. Patient is active with Kj HUBBARD, liabridger Arias is following. DCP is home with homecare. TCC to assist and follow as needed. Zoë Trimble RN Problem: Knowledge Deficit Goal: Patient/family/caregiver demonstrates understanding of disease process, treatment plan, medications, and discharge instructions Outcome: Progressing Problem: Potential for Compromised Skin Integrity Goal: Skin Integrity is Maintained or Improved Outcome: Progressing Goal: Nutritional status is improving Outcome: Progressing Problem: Urinary Incontinence Goal: Perineal skin integrity is maintained or improved Outcome: Progressing Problem: Safety - Adult Goal: Free from fall injury Outcome: Progressing Problem: Discharge Planning Goal: Discharge to home or other facility with appropriate resources Outcome: Progressing Problem: Chronic Conditions and Co-morbidities Goal: Patient's chronic conditions and co-morbidity symptoms are monitored and maintained or improved Outcome: Progressing Problem: Knowledge Deficit Goal: Patient/family/caregiver demonstrates understanding of disease process, treatment plan, medications, and discharge instructions Outcome: Progressing Problem: Potential for Compromised Skin Integrity Goal: Skin Integrity is Maintained or Improved Outcome: Progressing Goal: Nutritional status is improving Outcome: Progressing Problem: Urinary Incontinence Goal: Perineal skin integrity is maintained or improved Outcome: Progressing Problem: Safety - Adult Goal: Free from fall injury Outcome: Progressing Problem: Discharge Planning Goal: Discharge to home or other facility with appropriate resources Outcome: Progressing Problem: Chronic Conditions and Co-morbidities Goal: Patient's chronic conditions and co-morbidity symptoms are monitored and maintained or improved Outcome: Progressing Problem: Knowledge Deficit Goal: Patient/family/caregiver demonstrates understanding of disease process, treatment plan, medications, and discharge instructions Outcome: Progressing Problem: Potential for Compromised Skin Integrity Goal: Skin Integrity is Maintained or Improved Outcome: Progressing Goal: Nutritional status is improving Outcome: Progressing Problem: Urinary Incontinence Goal: Perineal skin integrity is maintained or improved Outcome: Progressing Problem: Safety - Adult Goal: Free from fall injury Outcome: Progressing Problem: Discharge Planning Goal: Discharge to home or other facility with appropriate resources Outcome: Progressing Problem: Chronic Conditions and Co-morbidities Goal: Patient's chronic conditions and co-morbidity symptoms are monitored and maintained or improved Outcome: Progressing documented in this encounter [facility] 10-06-2023 Note Formatting of this n ote is different from the original. Start PACC Note Home Health Referral Educated patient and on Home Care and services available. Patient offered choice of available HHC and agreeable to resume SN/PT/OT services with [facility] at Home - Home Care. Care Types: None Isolation Precautions: No active isolations Social Determinates of Health: Tobacco Use: Low Risk (10/03/2023) Patient History Smoking Tobacco Use: Never Smokeless Tobacco Use: Never Passive Exposure: Not on file Social History Substance and Sexual Activity Alcohol Use Yes Comment: 3-4 per year Social History Substance and Sexual Activity Drug Use No Does the patient have any financial resource strain? No Does the patient have any food insecurities? No Does the patient have any housing instabilities? No If any of the above is noted as yes - consider a STONEMASON SUPERVISOR evaluation once the patient returns home. START PATIENT REGISTRATION INFORMATION Order Information Order Signing Physician: Conrad Louie MD Service Ordered RN ?: Yes Service Ordered PT ?: Yes Service Ordered OT ?: Yes Service Ordered ST ?: No Service Ordered STONEMASON SUPERVISOR?:No Service Ordered DENTISTRY TEACHER?: No Following Physician: Hermann Damian MD Following Physician Overseeing Physician: Hermann Damian MD (Required for Residents only) Agreeable to Follow? Yes Date/Time of Call 10/06/23 7:08 PM, Spoke with: MARLI Care Coordination Same Day SOC?: No Primary Care Physician: Hermann Damian MD Primary Care Physician Primary Care Physician Address: [address] [place] [address], [address] / [facility] [id number] Visit Instructions: N/A Service Discharge Location Type: Home with Home Health Care Service Facility Name: N/A Service Floor Facility: N/A Service Room No: N/A Demographics Patient Last Name: Stephan Patient First Name: Ciro Language/Communication Barrier: none Service Address: [address] [place] [address] Service City: [facility] [[email or web address] ST: [place] Service ZIP: [phone] Service (home) Other phone numbers: No relevant phone numbers on file. Emergency Contact: Extended Emergency Contact Information Primary Emergency Contact: Manju Sales Relation: Spouse Admission Information Admit Date: 10/03/2023 Patient status at discharge: Inpatient Admitting Diagnosis: Hypoxia [R09.02] Bilateral leg edema [R60.0] Caregiver Information Caregiver First Name: Manju Caregiver Last Name: Stephan Caregiver Relationship to Patient: spouse Caregiver Caregiver Notes: N/A [facility] List No END PATIENT REGISTRATION INFORMATION Pt Home Health goal home COVID Status 1. Do you have any upper respiratory symptoms (cough, SOB, Fever)? No 2. Have you been exposed to anyone with COVID-19 Virus? No Answer only if pending or positive for COVID-19? 1. Agreeable to wear PPE at each visit? No 2. Is the hospital supplying them with PPE upon Discharge? No Start PACC Summary General Report/ Additional Comments This is an 88 yo M who presented with shortness of breath and hypoxia who had an elevated d-dimer and CTA chest suggestive of acute pulmonary embolism. He underwent an echocardiogram which showed a normal EF. Patient was evaluated by pulmonology and thought to possibly be small mild PE but treatment was unchanged regardless. He was agreeable to being started on Eliquis. Patient did also have ?CAUTI and treated with course of Rocephin. He symptomatically improved and was discharged home. Urology was updated about events and surgery cancelled. Discharge Date: pending Referral Source-PACC: (Hospital/Unit): [facility] / H-6104/H-6104 A End PACC Note [facility] 10-06-2023 Note Formatting of this n ote is different from the original. Start PACC Note Home Health Referral Educated patient and on Home Care and services available. Patient offered choice of available HHC and agreeable to resume SN/PT/OT services with [facility] at Home - Home Care. Care Types: None Isolation Precautions: No active isolations Social Determinates of Health: Tobacco Use: Low Risk (10/03/2023) Patient History Smoking Tobacco Use: Never Smokeless Tobacco Use: Never Passive Exposure: Not on file Social History Substance and Sexual Activity Alcohol Use Yes Comment: 3-4 per year Social History Substance and Sexual Activity Drug Use No Does the patient have any financial resource strain? No Does the patient have any food insecurities? No Does the patient have any housing instabilities? No If any of the above is noted as yes - consider a STONEMASON SUPERVISOR evaluation once the patient returns home. START PATIENT REGISTRATION INFORMATION Order Information Order Signing Physician: Conrad Louie MD Service Ordered RN ?: Yes Service Ordered PT ?: Yes Service Ordered OT ?: Yes Service Ordered ST ?: No Service Ordered STONEMASON SUPERVISOR?:No Service Ordered DENTISTRY TEACHER?: No Following Physician: Hermann Damian MD Following Physician Overseeing Physician: Hermann Damian MD (Required for Residents only) Agreeable to Follow? Yes Date/Time of Call 10/06/23 7:08 PM, Spoke with: MARLI Care Coordination Same Day SOC?: No Primary Care Physician: Hermann Damian MD Primary Care Physician Primary Care Physician Address: [address] [place] [id number] Visit Instructions: N/A Service Discharge Location Type: Home with Home Health Care Service Facility Name: N/A Service Floor Facility: N/A Service Room No: N/A Demographics Patient Last Name: Stephan Patient First Name: Ciro Language/Communication Barrier: none Service Address: [address] [facility] Service City: [facility] [[email or web address] ST: [place] Service ZIP: [address] Service (home) Other phone numbers: No relevant phone numbers on file. Emergency Contact: Extended Emergency Contact Information Primary Emergency Contact: Manju Sales Relation: Spouse Admission Information Admit Date: 10/03/2023 Patient status at discharge: Inpatient Admitting Diagnosis: Hypoxia [R09.02] Bilateral leg edema [R60.0] Caregiver Information Caregiver First Name: Manju Caregiver Last Name: Stephan Caregiver Relationship to Patient: spouse Caregiver Caregiver Notes: N/A [facility] List No END PATIENT REGISTRATION INFORMATION Pt Home Health goal home COVID Status 1. Do you have any upper respiratory symptoms (cough, SOB, Fever)? No 2. Have you been exposed to anyone with COVID-19 Virus? No Answer only if pending or positive for COVID-19? 1. Agreeable to wear PPE at each visit? No 2. Is the hospital supplying them with PPE upon Discharge? No Start PACC Summary General Report/ Additional Comments This is an 88 yo M who presented with shortness of breath and hypoxia who had an elevated d-dimer and CTA chest suggestive of acute pulmonary embolism. He underwent an echocardiogram which showed a normal EF. Patient was evaluated by pulmonology and thought to possibly be small mild PE but treatment was unchanged regardless. He was agreeable to being started on Eliquis. Patient did also have ?CAUTI and treated with course of Rocephin. He symptomatically improved and was discharged home. Urology was updated about events and surgery cancelled. Discharge Date: pending Referral Source-PACC: (Hospital/Unit): [facility] / H-6104/H-6104 A End PACC Note [facility] 10-06-2023 History of Present illness Narrative Images from the original note were not included. [id number]] Respiratory Therapy Home O2 Progress Note O2 saturation at rest on room air: 95% (If resting saturation was 88% or less, enter NA for the next two values) O2 saturation with exertion on room air: 92% (NA if not evaluated) O2 saturation on O2 at NA LPM with exertion: NA (NA if not evaluated) Patient meets criteria for home O2 Y/N = N Patient mobile at home Y/N = Y DME Notified N Patient weaned to room air. Tolerating well at this point. Images from the original note were not included. PHYSICAL THERAPY [facility] Initial Evaluation Name/MRN: Tennille Sales ([id number]) Evaluation Date: 10/05/2023 Date of : 1935 Admission Date: 10/03/2023 10:35 AM Age: 88 y.o. [facility] Discharge Recommendation: Home with assist PRN, Home with Home health PT Equipment Needed: No Other: owns fww Assessment IMPRESSION: Pt ambulated functional distance with fww. Noted gait deviation but no overt LOB. After gait SpO2 at 89%, recovered after rest and 1 L/min NC. Anticipate discharge to home with assist as needed, recommend home care PT. Diagnosis: Hypoxia, bilateral leg edema. Prognosis: fair Performance Deficits /Impairments: Decreased Functional Mobility, Decreased ADL status, Decreased Endurance, and Decreased Balance Decision Making: Low Complexity Subjective Pt in bed, agree with PT treatment. Pain: Pt denies any current pain. Past Medical History: Past Medical History: Diagnosis Date Acute deep vein thrombosis (DVT) of popliteal vein of left lower extremity (HCC) 11/18/2022 11/04/2022. xarelto x 3 months Anemia Arthritis Cancer (CMS/HCC) (HCC) BcC of nose DVT (deep venous thrombosis) (HCC) LLE GERD (gastroesophageal reflux disease) History of elevated PSA Hyperlipidemia Hypertension Poison gt 11/22/2020 Umbilical hernia without obstruction or gangrene SCHEDULED FOR THE SURGERY ON 05/28 Viral URI with cough 04/11/2022 Past Surgical History: Past Surgical History: Procedure Laterality Date CATARACT EXTRACTION Right COLONOSCOPY HEMORRHOID SURGERY 1999 SHB HERNIA REPAIR Right inguinal LAMINECTOMY 07/31/2023 L2, L3, L4, L5 laminectomy L4-L5 fusion NOSE SURGERY A KID UMBILICAL HERNIA REPAIR 05/28/2019 Admission Diagnosis: Patient Active Problem List Diagnosis Date Noted Hypoxia 10/03/2023 Anemia 08/21/2023 Constipation 08/06/2023 Renal insufficiency 08/06/2023 HTN (hypertension) 08/05/2023 Obesity, Class I, BMI 30-34.9 08/05/2023 Urinary retention 08/05/2023 Spinal stenosis 07/31/2023 Acute embolism and thrombosis of left peroneal vein (HCC) 04/21/2023 Dermatitis 04/03/2023 Bilateral lower extremity edema 04/03/2023 OAB (overactive bladder) 10/18/2022 Chronic rhinitis 10/18/2022 Subacute cough 10/04/2022 Post-nasal drainage 10/04/2022 Chronic kidney disease, stage 3a (HCC) 12/14/2021 Osteoarthritis of right hip 12/05/2021 Sebaceous cyst 12/05/2021 Rotator cuff tendinitis, left 07/05/2021 Trigger finger, left ring finger 01/05/2021 Greater trochanteric bursitis of right hip 10/10/2020 Hyperlipidemia 04/11/2020 Basal cell carcinoma of nose 10/07/2019 Prediabetes 12/27/2018 Elevated PSA, between 10 and less than 20 ng/ml 04/06/2018 Umbilical hernia without obstruction and without gangrene 04/06/2018 Allergic rhinitis 10/02/2017 Benign head tremor 02/27/2017 Urge incontinence 08/08/2016 Essential hypertension, benign 06/21/2016 Medical Precautions: No active isolations Proper PPE donned/doffed in accordance with facility standards. Fall Risk: Head Fall Risk Score: 60 (High Risk) Precautions/Restrictions: Lines/Drains/Airways: tele, 1.5 L/min NC Family/Caregiver Present: none Overall Cognitive Status: Exceptions - Insights: decreased awareness of deficits Overall Orientation Status: Oriented x4 Vision: not assessed this session Hearing: [place] Social/Functional History Patient admitted from home. Lives With: Spouse Type of Home: single family home Home Layout: Single Level Home Home Access: Stairs to Enter with Rails (# of stairs: 8) Bathroom Shower/Tub: Toilet: N/A Home Equipment: front wheeled walker and cane Homemaking Responsibilities: Needs Assist Receives Help From: Spouse Active Business Banking Officer: N/A Prior Level of Function ADL Assistance: Independent Ambulation Assistance: Independent Device(s) used: front wheeled walker and cane Transfer Assistance: Independent Objective Lower Extremity Assessment AROM: WFL PROM: WFL Strength: Lower Extremity Strength Right Left Hip Flexion 4- 4- Hip Abduction Hip Extension Hip External Rotation (ER) Hip Internal Rotation (IR) Knee Extension 4- 4- Knee Flexion Ankle Dorsiflexion (DF) 3+ 3+ Ankle Plantarflexion (PF) Inversion Eversion Bed Mobility: Supine to sit: SBA Transfers Sit to stand: SBA Stand to sit: SBA Stand pivot: SBA Bed to chair: SBA Ambulation Ambulation 1 Assistive device(s) used: front wheeled walker Assist level: SBA Distance (ft): 125 Quality of gait: No LOB, uneven step length, slow cynthia, postural sway, flexed posture Ambulation 2 Assistive device(s) used: front wheeled walker Assist level: SBA Distance (ft): 50 Quality of gait: uneven step length, slow cynthia, postural sway, flexed posture Ambulation 3 Assistive device(s) used: none Assist level: SBA Distance (ft): 5 Quality of gait: slow cynthia, postural sway, path deviations, instability through all phases Balance: static standing 1 minute, cues to improve posture. Ambulated at RA, SpO2 89%, recovered after rest at 1-1.5 L/min NC Posture: fair Sitting - Static: Independent Sitting - Dynamic: Independent Standing - Static: SBA Standing - Dynamic: SBA Outcome Measures AM-PAC How much HELP from another person do you currently need Turning from your back to your side while in a flat bed without using bedrails?: None Moving from lying on your back to sitting on the side of a flat bed without using bedrails?: None Moving to and from a bed to a chair (including a wheelchair)?: None Standing up from a chair using your arms (wheelchair or bedside chair)?: None Walking in a hospital room?: None Stair climbing assessed?: No AM-PAC Inpatient Mobility Raw Score (No Stairs) : 20 JH-HLM JH-HLM Score: Walked 25 ft or more (i.e. walked outside of room) Plan Pt would benefit from skilled acute PT services to address Strengthening, Balance Training, Functional Mobility Training, and Gait Training. Frequency: 2x/week for 4 weeks Barriers: Decreased endurance Safety/Education Safety Safety Devices in place: call light within reach, left in chair, gait belt, no alarms engaged upon entry, and 1.5 L/min NC Restraints: No Education Education Given To: patient Education Provided: PT Role, PT Goals, and Plan of Care Education Method: Verbal Barriers to Learning: None Education Outcome: Verbalized Understanding and Continued Education Needed Goals Patient Stated Goal: To go home. Encounter Problems Encounter Problems (Active) Balance Patient will maintain dynamic standing balance for 2 minutes with modified independence in order to demonstrate decreased risk of falling. Start: 10/05/23 Expected End: 11/02/23 Mobility Patient will ambulate 250 feet with modified independence and rolling walker in order to improve safety and independence with mobility. Start: 10/05/23 Expected End: 11/02/23 Mobility Patient will ascend and descend 8 stairs with one railing and modified independence in order to safely negotiate home. Start: 10/05/23 Expected End: 11/02/23 Transfers Patient will perform bed mobility with modified independence in order to improve independence and prepare for out of bed mobility. Start: 10/05/23 Expected End: 11/02/23 Patient will complete functional transfer with rolling walker with modified independence in order to prepare for ambulation. Start: 10/05/23 Expected End: 11/02/23 Therapy Time Individual Co-treatment Time In 1242 Time Out 1305 Minutes 23 Timed Code Treatment Minutes: 8 Minutes (gait) Michael Yang PT Patient's Physical Therapy Plan of Care supervision is transferred to a [facility] Therapy Services Physical Therapist. Goals and/or treatment plan was established in collaboration with patient/family/other representatives. Nutrition Assessment Type and Reason for Visit: Initial, Consult (poor po intake/appetite 5 days or greater) Nutrition Recommendations/Plan: Continue with regular diet. Monitor nutritional status. Malnutrition Assessment: Malnutrition Status: At risk for malnutrition (Comment) Context: Acute Illness Findings of the 6 clinical characteristics of malnutrition: Energy Intake: 50% or less of estimated energy requirements for 5 or more days Weight Loss: No significant weight loss Body Fat Loss: No significant body fat loss Muscle Mass Loss: No significant muscle mass loss Fluid Accumulation: Mild Hog Pusher Strength: Not Performed Nutrition Assessment: Pt is an 88-year-old mal with PMH that includes who present for SOB, elevated D-dimer, mild hypoxia (upper 80's) on home pulse ox. Testing reveals L femoral (loosely attached) & R peroneal/soleal DVTs --> this is second occurrence of DVT, and now in setting of suspected PE in the smaller RUL/RML branches. CAUTI vs colonization in setting of indwelling Lopez, exchanged 1-week ago. RD visited pt; he endorses decreased appetite/intake, notes +more gas today, had questions re: TURP in which RD referred pt to MDs. Endorses somewhat improved intake. Estimated Daily Nutrient Needs: Energy Requirements Based On: Kcal/kg Weight Used for Energy Requirements: [place] Weight for Energy Calculation (kg): 75.4 kg Total Energy Requirements (kcals/day): 25-30 kcals/kg = 5285-1016 kcals/day Weight Used for Protein Requirements: [place] Weight in Kg Used for Protein Requirements: 75.4 kg Estimated Total Protein (g/day): 75-83g protein/day Estimated Daily Total Fluid (ml/day): per MD Nutrition Related Findings: Hypoactive BS, NT, +BM 10/03/23. BPH - TURP was planned for 10/07/23. Wound Type: (coccyx with blanchable/redness) Net IO Since Admission: -4,550 mL [10/05/23 1307] Current Nutrition Therapies: Adult diet Regular Current Oral Intake Average Meal Intake: 76-100% Average Supplements Intake: None Ordered Anthropometric Measures: Height: 177.8 cm (5' 10) Current Body Weight: 93.9 kg (207 lb 0.2 oz) (10/03/23) Weight Source: Stated [place] Body Weight (lbs) (Calculated): 166 lbs [place] Body Weight (Kg) (Calculated): 75 kg % [place] Body Weight (Calculated): 124.7 % BMI (kg/m2) (Calculated): 29.7 BMI Categories: Overweight (BMI 25.0-29.9) Wt Readings from Last 10 Encounters: 10/05/23 93.9 kg (207 lb) 10/02/23 95.4 kg (210 lb 6.4 oz) 09/29/23 94.3 kg (208 lb) 09/11/23 94.6 kg (208 lb 9.6 oz) 09/03/23 93.9 kg (207 lb) 08/21/23 96.6 kg (213 lb) 08/19/23 99.8 kg (220 lb) 08/13/23 99.8 kg (220 lb) 07/23/23 100 kg (220 lb 6.4 oz) 06/18/23 101 kg (222 lb) LABS: Recent Labs 10/03/23 1044 10/03/23 1847 NA 133* 132* K 4.6 4.7 CL 98 100 CO2 27 27 BUN 23* 22* CREATININE 1.56* 1.41* GLUCOSE 146* 137* CALCIUM 8.7 8.6 BUN/Cr - elevated. BG - elevated. Na+ - decreased. Recent Labs 10/03/23 1044 AST 25 ALT 16 BILITOT 0.7 ALKPHOS 64 Nutrition Diagnosis: Predicted inadequate energy intake related to impaired respiratory function as evidenced by intake 51-75%, intake 26-50% Nutrition Interventions: Nutrition Education/Counseling: Education not indicated Coordination of Nutrition Care: Continue to monitor while inpatient Goals: Goals: PO intake 75% or greater, by next RD assessment Nutrition Monitoring and Evaluation: Food/Nutrient Intake Outcomes: Food and Nutrient Intake, Supplement Intake Physical Signs/Symptoms Outcomes: Biochemical Data, GI Status, Skin, Weight, Nutrition Focused Physical Findings Discharge Planning: Too soon to determine Sharmin Jain RD,LD,[facility] Contact: *[phone] or [employer] Chat Hospitalist Progress Note 10/05/2023 Subjective: Admit Date: 10/03/2023 PCP: Hermann Damian MD Room#: [id number] BRIEF HOSPITAL COURSE: Per previous hospitalist's note: Patient admitted 10/03/2023 for suspected PE. Initially presented with SOB and respiratory insufficiency. Worsening anorexia and generalized weakness, two months of sinus drainage and frontal headache, with Lopez in place due to difficulty urinating following a lumbar laminectomy and fusion in . 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 Found to have UTI vs colonization, and elevated D-dimer with equivocal CTA of the chest. Interval History: Patient seen and examined. Chart reviewed. No overnight issues. +shortness of breath. +occasional wheeze. +constipation. Case and plan discussed with patient and bedside nurse. All questions answered. Adult diet Regular 24HR INTAKE/OUTPUT: Intake/Output Summary (Last 24 hours) at 10/05/2023 0917 Last data filed at 10/05/2023 0455 Gross per 24 hour Intake -- Output 1150 ml Net -1150 ml Past Medical History: Past Medical History: Diagnosis Date Acute deep vein thrombosis (DVT) of popliteal vein of left lower extremity (HCC) 11/18/2022 11/04/2022. xarelto x 3 months Anemia Arthritis Cancer (CMS/HCC) (HCC) BcC of nose DVT (deep venous thrombosis) ([facility]) LLE GERD (gastroesophageal reflux disease) History of elevated PSA Hyperlipidemia Hypertension Poison gt 11/22/2020 Umbilical hernia without obstruction or gangrene SCHEDULED FOR THE SURGERY ON 05/28 Viral URI with cough 04/11/2022 LABS: CBC: Recent Labs 10/02/23 1155 10/03/23 1044 10/04/23 0027 WBC 9.0 7.0 5.6 RBC 4.47 4.14* 3.85* HGB 12.1* 11.6* 10.6* HCT 39.3* 35.6* 33.6* MCV 87.9 86.0 87.3 RDW 13.7 13.7 13.6 PLT 237 216 200 BMP: Recent Labs 10/02/23 1155 10/03/23 1044 10/03/23 1847 NA 136 133* 132* K 4.2 4.6 4.7 CL 99 98 100 CO2 31* 27 27 BUN 26* 23* 22* CREATININE 1.56* 1.56* 1.41* GLUCOSE 111* 146* 137* CALCIUM 9.2 8.7 8.6 ANIONGAP 6 8 6 LIVER PROFILE: Recent Labs 10/03/23 1044 AST 25 ALT 16 BILITOT 0.7 ALKPHOS 64 PROT 6.7 PT/INR: No results for input(s): PROTIME, INR in the last 72 hours. CARDIAC ENZYMES: Recent Labs 10/03/23 1044 10/03/23 1349 10/03/23 1847 TROPONINI 0.012 <0.012 <0.012 Procalcitonin: No results found for: PROCAL COVID-19 PCR: No results for input(s): COVID19 in the last 72 hours. Objective: Vitals: BP 131/79 (BP Location: Right arm, Patient Position: Lying) Pulse 67 Temp 36.5 C (97.7 F) (Temporal) Resp 20 Ht 5' 10 (1.778 m) Wt 207 lb (93.9 kg) SpO2 97% BMI 29.70 kg/m Pulse Ox: SpO2 Av.3 % Min: 96 % Max: 99 % Supplemental O2: O2 Flow Rate (L/min): 3 L/min Physical Exam Constitutional: Appearance: He is not ill-appearing. HENT: Head: Normocephalic and atraumatic. Mouth/Throat: Mouth: Mucous membranes are moist. Eyes: Extraocular Movements: Extraocular movements intact. Conjunctiva/sclera: Conjunctivae normal. Cardiovascular: Rate and Rhythm: Normal rate and regular rhythm. Pulses: Normal pulses. Heart sounds: Normal heart sounds. Pulmonary: Effort: Pulmonary effort is normal. No respiratory distress. Breath sounds: Wheezing (Occasional scattered wheeze) present. Comments: Decreased breath sounds at bases Abdominal: General: Bowel sounds are normal. There is no distension. Palpations: Abdomen is soft. Tenderness: There is no abdominal tenderness. Musculoskeletal: General: No swelling or tenderness. Skin: General: Skin is warm and dry. Neurological: General: No focal deficit present. Mental Status: He is alert and oriented to person, place, and time. Psychiatric: Mood and Affect: Mood normal. Judgment: Judgment normal. Medications: Scheduled PRN albuterol, 2.5 mg, Nebulization, TID apixaban, 10 mg, Oral, BID Followed by [START ON 10/11/2023] apixaban, 5 mg, Oral, BID cefTRIAXone, 1,000 mg, IntraVENous, q24h fluticasone, 1 spray, Each Nostril, Daily guaiFENesin, 600 mg, Oral, BID senna-docusate sodium, 2 tablet, Oral, Daily valsartan, 40 mg, Oral, Daily PRN medications: acetaminophen OR acetaminophen, [place] Saline Nasal, ondansetron ODT OR ondansetron, polyethylene glycol (PEG) 3350 Continuous Assessment Plan Dyspnea - concern for ?PE; acute respiratory insufficiency; on O2; DVT's noted on LE Duplex; started on Eliquis; consult pulm for input; scheduling nebs due to wheezing; echo with normal EF and doubt CHF ?CAUTI - on Rocephin; urine culture with Serratia marcescens HTN - continue valsartan 40 mg po daily BPH with LUTS/retention - lopez in place and was exchanged CKD stage III - Cr stable Advance Directive: Full Code Anticipated Discharge - Date - DC Home 10/05 Extended Emergency Contact Information Primary Emergency Contact: NicoManju dixon Relation: Spouse Conrad Geovanni Louie DO Division of Hospitalist Medicine [facility]3] Images from the original note were not included. PHYSICAL THERAPY [facility] Name/MRN: Tennille Umaña Stephan ([id number]) Date: 10/05/2023 PT orders received per Des activity score. Patient currently with Des activity score greater than 2. Per therapy services guidelines, will discharge PT orders. Please re-consult if needed. Michael Yang PT Images from the original note were not included. [facility] Hospitalist Progress Note 10/04/2023 0747-2529: Please page night Hospitalist for any issues. Admit Date: 10/03/2023 PCP: Hermann Damian MD Room#: [id number] A Brief hospital course: Patient admitted 10/03/2023 for suspected PE. Initially presented with SOB and respiratory insufficiency. Worsening anorexia and generalized weakness, two months of sinus drainage and frontal headache, with Lopez in place due to difficulty urinating following a lumbar laminectomy and fusion in . 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 Found to have UTI vs colonization, and elevated D-dimer with equivocal CTA of the chest. Subjective: Interval History: Admitted overnight. Multiple family members present. Patient and with innumerable questions, most of which involved topics unrelated to this admission. They had brown-bagged many of patient's meds and requested one-by-one review of them including OTCs such as nasal sprays, vitamins, loratadine, and eye drops. Also requesting evaluation of fungal infection of toenails and whether or not to continue on currently prescribed topic cream, or what treatment I would recommend. Adult diet Regular 24HR INTAKE/OUTPUT: Intake/Output Summary (Last 24 hours) at 10/04/2023 0946 Last data filed at 10/04/2023 0921 Gross per 24 hour Intake -- Output 3850 ml Net -3850 ml Objective: Vitals: BP 143/86 (BP Location: Left arm, Patient Position: Sitting) Pulse 77 Temp 36.9 C (98.5 F) (Temporal) Resp 16 Ht 5' 10 (1.778 m) Wt 207 lb (93.9 kg) SpO2 94% BMI 29.70 kg/m Pulse Ox: SpO2 Av.7 % Min: 92 % Max: 98 % Supplemental O2: Room air General appearance: NAD. Cooperative with exam. Sitting in chair. Persistent head tremor. Respiratory: CTAB. Normal effort. Continuous pulse-ox running: SpO2 90-91% conversant on RA, with occasional brief dips to 89%. Cardiovascular: RRR. No M/R/G. No pedal edema. Abdomen: NBS. Soft. NT/ND. Lopez with clear yellow urine. Musculoskeletal: No clubbing nor gross deformity. Grossly moving all extremities w/o issue. Integument: Mild onychomycosis involving all toenails. Neurologic: Alert. Answering questions & following directions appropriately. [place]. Weight Trend Wt Readings from Last 5 Encounters: 10/03/23 207 lb (93.9 kg) 10/02/23 210 lb 6.4 oz (95.4 kg) 09/29/23 208 lb (94.3 kg) 09/11/23 208 lb 9.6 oz (94.6 kg) 09/03/23 207 lb (93.9 kg) Labs/Studies: The following labs and/or studies were reviewed by me as part of today's encounter. HEME: Recent Labs 10/02/23 1155 10/03/23 1044 10/04/23 0027 WBC 9.0 7.0 5.6 RBC 4.47 4.14* 3.85* HGB 12.1* 11.6* 10.6* HCT 39.3* 35.6* 33.6* MCV 87.9 86.0 87.3 RDW 13.7 13.7 13.6 PLT 237 216 200 CHEM: Recent Labs 10/02/23 1155 10/03/23 1044 10/03/23 1847 NA 136 133* 132* K 4.2 4.6 4.7 CL 99 98 100 CO2 31* 27 27 BUN 26* 23* 22* CREATININE 1.56* 1.56* 1.41* EGFR 42.7* 42.7* 48.2* GLUCOSE 111* 146* 137* CALCIUM 9.2 8.7 8.6 ANIONGAP 6 8 6 No results for input(s): MG, PHOS, CRP, SEDRATE, CKTOTAL in the last 72 hours.(MG, CRP, SEDRATE, and CKTOTAL are separate not part of a panel; PHOS may be separate or part of a RENAL panel) LIVER: Recent Labs 10/03/23 1044 AST 25 ALT 16 BILITOT 0.7 BILIDIR 0.0 ALKPHOS 64 ALBUMIN 3.5 PROT 6.7 (on any date where BILIDIR is present then there is a full hepatic panel, not a CMP; lipase & GGT are separate labs not part of a panel) URINE: Recent Labs 10/03/23 1046 COLORU Yellow CLARITYU Turbid* GUERO 6.5 LEUKOCYTESU 500* NITRITEU Positive* PROTUR 50* GLUCOSEU Normal BILIRUBINU Negative KETONESU Negative UROBILINOGEN 3* BLOODU 0.03* Recent Labs 10/03/23 1046 RBCU 3-5* WBCU >100* SQUAMEPIU 0-2 BACTERIAU Many* SG 1.018 COAG: No results for input(s): PROTIME, INR, PTT in the last 72 hours. CARDIAC: Recent Labs 10/03/23 1044 10/03/23 1349 10/03/23 1847 TROPONINI 0.012 <0.012 <0.012 NT PROBNP - QUEST Date Value Ref Range Status 04/03/2023 148 <450 pg/mL Final NT PRO BNP Date Value Ref Range Status 10/03/2023 777 (H) <20 - 300 pg/mL Final No results for input(s): POCGLU in the last 72 hours. No results for input(s): LACTATE in the last 72 hours. Lab Results Component Value Date DDIMER 3.55 (H) 10/03/2023 Urine Culture: Results for orders placed or performed in visit on 09/29/23 Urine culture Specimen: Urine, Clean Catch Result Value Ref Range Urine Culture SEE NOTE (A) Blood Culture: No results found for this or any previous visit. CTA Chest: Significantly limited study. No large acute central pulmonary embolus. Small regions of diminished attenuation within lower lobe and right middle lobe pulmonary arterial branches may be artifactual, however true filling defect within the right middle lobe and upper lobe segmental branches (i.e. pulmonary embolus) are a possibility. Consider follow-up duplex ultrasound of the lower extremities, correlation with patient risk factors and short-term follow-up exam. Currently Ordered Medications: Scheduled PRN cefTRIAXone, 1,000 mg, IntraVENous, q24h enoxaparin, 40 mg, SubCUTAneous, Daily valsartan, 40 mg, Oral, Daily PRN medications: acetaminophen OR acetaminophen, ondansetron ODT OR ondansetron, polyethylene glycol (PEG) 3350 Continuous Medical Decision Making: Acute, acute on chronic, unstable/uncontrolled chronic problems: SOB + ?Mild hypoxia + Elevated D-dimer + Equivocal CTA + hx DVT () Mild hypoxia (upper 80s) on home pulse-ox, but maintained low-normal in low 90s on RA since arrival to hospital Official read not back yet, however contacted via secure chat by Crys Costa (cardio/plating technician) that patient with L femoral (loosely attached) & R peroneal/soleal DVTs --> this is second occurrence of DVT, and now in setting of suspected PE in the smaller RUL/RML branches ?CAUTI vs colonization in setting of indwelling Lopez, exchanged 1-week ago Stable chronic problems affecting care, new non-acute diagnoses: CKD3 (borderline 3a/3b) HTN HLD BPH with LUTS/retention GERD As a result of the above findings & factors, the following mgmt was pursued: - echo pending - start DOAC, likely lifetime anticoagulation (discussed with patient & ) - hemodynamically unremarkable, SpO2 >=90% on RA at rest, multiple trops wnl - upcoming outpatient cysto & placement of suprapubic cath will need to be rescheduled - explained this to patient & , can interrupt anticoagulation for procedure during prophlx period, but not w/in the next 2-3 months during active tx - CTX (10/02-10/06) - Lopez exchange w/ collection of new UA - delirium precautions: increase activity, limit nighttime disturbances, and avoid anticholinergic meds, benzos, etc - DVT prophylaxis: enoxaparin and encourage ambulation --> switch to full AC (NICE guidelines: N/A) Data: (CAT1) Reviewed 3 or more labs/studies ordered by another provider not previously counted (each=1, panels count as 1). Advance Directive: Full Code Anticipated Discharge - Date - 10/04 - Location - Home - Pending the following - start anticoagulation, echo, urine culture results Thomas Courtney MD Division of Hospitalist Medicine Total time spent providing [id number] plus indirect care on date of service: 56 minutes. Time was spent: reviewing interval notes / vitals / studies, interviewing and examining the patient, speaking with medical staff regarding this patient, documenting any/all encounters. documented in this encounter [facility] 10-06-2023 Hospital Discharge instructions Fifi Decker RN - 10/06/2023 5:06 PM EDT Continuity of Care Form Patient Name: Ciro Sales : 1935 Admit date: 10/03/2023 Discharge date: Code Status Order: Full Code Advance Directives: N Admitting Physician: Anna Orozco DO PCP: Hermann Damian MD Discharging Nurse: Discharging Hospital Unit/Room#: [id number]/[id number] A Discharging Unit Phone Number: Emergency Contact: Extended Emergency Contact Information Primary Emergency Contact: Manju Sales Relation: Spouse Past Surgical History: Past Surgical History: Procedure Laterality Date CATARACT EXTRACTION Right COLONOSCOPY HEMORRHOID SURGERY 1999 [facility] HERNIA REPAIR Right inguinal LAMINECTOMY 07/31/2023 L2, L3, L4, L5 laminectomy L4-L5 fusion NOSE SURGERY A KID UMBILICAL HERNIA REPAIR 05/28/2019 Immunization History: Immunization History Administered Date(s) Administered Hep A, ped/adol, 2 dose 10/13/2007, 04/18/2008 Hep B, adult 10/13/2007, 11/16/2007, 04/18/2008 Influenza, High-dose Seasonal, Quadrivalent, Preservative Free 04/11/2020, 03/20/2021 Moderna SARS-CoV-2 Vaccination 06/21/2020, 08/04/2020 Pneumococcal Conjugate PCV 13 02/27/2017 Pneumococcal Polysaccharide PPSV23 04/06/2018 Td (adult), unspecified 12/21/2002 Tdap 04/06/2018 Typhoid, Parenteral 10/13/2007 Typhoid, ViCPs 10/13/2007 Zoster, Recombinant 08/11/2018, 10/15/2018 Active Problems: Medical Problems Problem List * (Principal) Hypoxia Osteoarthritis of right hip Chronic kidney disease, stage 3a (HCC) Sebaceous cyst Subacute cough Post-nasal drainage OAB (overactive bladder) Chronic rhinitis Dermatitis Bilateral lower extremity edema Spinal stenosis Acute embolism and thrombosis of left peroneal vein (HCC) Constipation HTN (hypertension) Obesity, Class I, BMI 30-34.9 Renal insufficiency Urinary retention Anemia Hyperlipidemia Elevated PSA, between 10 and less than 20 ng/ml Urge incontinence Allergic rhinitis Prediabetes Basal cell carcinoma of nose Trigger finger, left ring finger Greater trochanteric bursitis of right hip Rotator cuff tendinitis, left Essential hypertension, benign Umbilical hernia without obstruction and without gangrene Benign head tremor Isolation/Infection: No active isolations No active infections Nurse Assessment: Last Vital Signs: BP 118/69 (BP Location: Left arm, Patient Position: Sitting) Pulse 75 Temp 37.8 C (100 F) (Temporal) Resp 16 Ht 1.778 m (5' 10) Wt 93.9 kg (207 lb) SpO2 95% BMI 29.70 kg/m Last documented pain score (0-10 scale): Last Weight: Wt Readings from Last 1 Encounters: 10/05/23 93.9 kg (207 lb) Mental Status: {JENNIFFER Patient Mental Status:67540} IV Access: {JENNIFFER IV Access:28574} Nursing Mobility/ADLs: Walking {ADELA ADL:::Independent} Transfer {ADELA ADL:::Independent} Bathing {ADELA ADL:::Independent} Dressing {ADELA ADL:::Independent} Toileting {ADELA ADL:::Independent} Feeding {ADELA ADL:::Independent} Software Applications Architect {ADELA ADL:::Independent} Med Delivery {yes/no:29628} Wound Care Documentation and Therapy: Wound/Incision 07/31/23 Incision Back Midline (Active) Number of days: 67 Wound/Incision 10/03/23 Other (comment) Coccyx (Active) Site Assessment Blanchable erythema 10/05/23 1915 Odor None 10/05/23 0900 Drainage Amount None 10/05/23 0900 Treatments Cleansed;Moisture barrier ointment 10/03/23 2200 Primary Dressing Open to air 10/05/23 191 Number of days: 2 Elimination: Continence: Bowel: {yes/no:25424} Bladder: {yes/no:16141} Urinary Catheter: {JENNIFFER Urinary Catheter:83846} Colostomy/Ileostomy/Ileal Conduit: {YES / NO:} Date of Last BM: Intake/Output Summary (Last 24 hours) at 10/06/2023 1706 Last data filed at 10/06/2023 1511 Gross per 24 hour Intake 360 ml Output 1700 ml Net -1340 ml I/O last 3 completed shifts: In: - (0 mL/kg) Out: 2100 (22.4 mL/kg) [Urine:2100 (0.6 mL/kg/hr)] Weight: 93.9 kg Safety Concerns: {JENNIFFER Safety Concerns:20678} Impairments/Disabilities: {JENNIFFER Impairments/Disabilities:67308} Nutrition Therapy: Current Nutrition Therapy: {JENNIFFER Diet List:64960} Routes of Feeding: {routes of feedin} Liquids: {liquid consistency:89196} Daily Fluid Restriction: {daily fluid restriction:58575} Last Modified Barium Swallow with Video (Video Swallowing Test): {done not done:56819} Treatments at the Time of Hospital Discharge: Respiratory Treatments: Oxygen Therapy: {Therapy; copd oxygen:21942} Ventilator: {JENNIFFER Ventilator:55587} Rehab Therapies: {GEN THERAPY DISCIPLINE SCAL:6214052} Weight Bearing Status/Restrictions: {POD WEIGHT BEARIN} Other Medical Equipment (for information only, NOT a DME order): {Assistive Devices DME:37134} Other Treatments: Patient's personal belongings (please select all that are sent with patient): {JENNIFFER Patient Belongings:87863} RN SIGNATURE: {E-signature:92455} CASE MANAGEMENT/SOCIAL WORK SECTION Inpatient Status Date: Readmission Risk Assessment Score: @READMISSIONRISKDETAILS@ Discharging to Facility/ Agency Name: Address: Phone: Fax: Dialysis Facility (if applicable) Name: Address: Dialysis Schedule: Phone: Fax: Vest Maker/Morgue Keeper signature: {E-signature:63549} PHYSICIAN SECTION Prognosis: {Rehab Prognosis:72483} Condition at Discharge: {Patient Condition:00120} Rehab Potential (if transferring to Rehab): {Rehab Prognosis:35180} Recommended Labs or Other Treatments After Discharge: Physician Certification: I certify the above information and transfer of Ciro Sales is necessary for the continuing treatment of the diagnosis listed and that he requires {JENNIFFER Level of Care:76355} for {greater less than:33202} 30 days. Update Admission H&P: {JENNIFFER Changes in H&P:40692} PHYSICIAN SIGNATURE: {E-signature:49404} documented in this encounter [facility] 10-06-2023 Hospital course Narrative Discharge Summary Hospitalist Discharge Summary Ciro Sales : 1935 Admit date: 10/03/2023 Discharge date: 10/06/2023 Admitting Physician: Anna Orozco DO Primary Care Physician: Hermann Damian MD Visit Status: Inpatient Code Status: Full Code BRIEF HOSPITAL COURSE: This is an 88 yo M who presented with shortness of breath and hypoxia who had an elevated d-dimer and CTA chest suggestive of acute pulmonary embolism. He underwent an echocardiogram which showed a normal EF. Patient was evaluated by pulmonology and thought to possibly be small mild PE but treatment was unchanged regardless. He was agreeable to being started on Eliquis. Patient did also have ?CAUTI and treated with course of Rocephin. He symptomatically improved and was discharged home. Urology was updated about events and surgery cancelled. Dyspnea - DVT and presumed PE; acute respiratory insufficiency; home O2 protocol upon discharge; DVT's noted on LE Duplex; started on Eliquis; pulmonology has seen; scheduling nebs due to wheezing; echo with normal EF ?CAUTI -finished course of Rocephin; urine culture with Serratia marcescens HTN - continue valsartan 40 mg po daily BPH with LUTS/retention - lopez in place and was exchanged CKD stage III - Cr stable Past Medical History: Diagnosis Date Acute deep vein thrombosis (DVT) of popliteal vein of left lower extremity (HCC) 11/18/2022 11/04/2022. xarelto x 3 months Anemia Arthritis Cancer (CMS/HCC) (HCC) BcC of nose DVT (deep venous thrombosis) (HCC) LLE GERD (gastroesophageal reflux disease) History of elevated PSA Hyperlipidemia Hypertension Poison gt 11/22/2020 Umbilical hernia without obstruction or gangrene SCHEDULED FOR THE SURGERY ON 05/28 Viral URI with cough 04/11/2022 Procedures: None Hospital Course: See above. See discharge diagnoses list above and medication adjustments below in med rec.The patient is discharged in improved and stable condition. Consults: IP CONSULT TO DIETITIAN IP CONSULT TO PULMONOLOGY Discharge Instructions: Diet: Dietary Orders (From admission, onward) Start Ordered 10/03/232340 Adult diet Regular Diet effective now Question: Diet type Answer: Regular 10/03/232340 Activity: as tolerated Recommended Outpatient Tests: Disposition: Patient discharged in stable condition to Home. Greater than 31 minutes spent discharging the patient and coming up with patient discharge plan. Vitals: BP 118/69 (BP Location: Left arm, Patient Position: Sitting) Pulse 75 Temp 37.8 C (100 F) (Temporal) Resp 16 Ht 5' 10 (1.778 m) Wt 207 lb (93.9 kg) SpO2 95% BMI 29.70 kg/m Pulse Ox: SpO2 Av.2 % Min: 84 % Max: 98 % Supplemental O2: O2 Flow Rate (L/min): 2 L/min Physical Exam Constitutional: Appearance: He is not ill-appearing. Comments: +tremulous HENT: Head: Normocephalic and atraumatic. Mouth/Throat: Mouth: Mucous membranes are moist. Eyes: Extraocular Movements: Extraocular movements intact. Conjunctiva/sclera: Conjunctivae normal. Cardiovascular: Rate and Rhythm: Normal rate and regular rhythm. Pulses: Normal pulses. Heart sounds: Normal heart sounds. Pulmonary: Effort: Pulmonary effort is normal. No respiratory distress. Comments: +slightly decreased BS's, occasional scattered wheeze Abdominal: General: Bowel sounds are normal. There is no distension. Palpations: Abdomen is soft. Tenderness: There is no abdominal tenderness. Genitourinary: Comments: +lopez Musculoskeletal: General: No swelling or tenderness. Skin: General: Skin is warm and dry. Neurological: General: No focal deficit present. Mental Status: He is alert and oriented to person, place, and time. Psychiatric: Mood and Affect: Mood normal. Judgment: Judgment normal. LABS: Recent Labs 10/03/23 1847 NA 132* K 4.7 CL 100 CO2 27 BUN 22* CREATININE 1.41* GLUCOSE 137* CALCIUM 8.6 Recent Labs 10/04/23 0027 WBC 5.6 RBC 3.85* HGB 10.6* HCT 33.6* MCV 87.3 MCH 27.5 MCHC 31.5 RDW 13.6 PLT 200 MPV 10.1 Discharge Medications: Medication List START taking these medications apixaban 5 MG tablet Commonly known as: Eliquis Take 2 tablets (10 mg) by mouth 2 times daily for 5 days, THEN 1 tablet (5 mg) 2 times daily. Start taking on: October 06, 2023 guaiFENesin 600 MG 12 hr tablet Commonly known as: Mucinex Take 1 tablet (600 mg) by mouth 2 times daily. Do not crush, chew, or split. CONTINUE taking these medications alfuzosin ER 10 MG 24 hr tablet Commonly known as: Uroxatral Take 1 tablet (10 mg) by mouth daily. Do not crush, chew, or split. ASCORBIC ACID PO CALCIUM CITRATE + PO CENTRUM SILVER 50+MEN PO CHOLECALCIFEROL PO ciclopirox 0.77 % cream Commonly known as: Loprox Apply topically 2 times daily x4 weeks to affected toenails famotidine 20 MG tablet Commonly known as: Pepcid FERROUS SULFATE CR PO fluticasone 50 MCG/ACT nasal spray Commonly known as: Flonase Administer 2 sprays into each nostril daily. Shake gently. Before first use, prime pump. After use, clean tip and replace cap. NON FORMULARY polyethylene glycol (PEG) 3350 17 GM/SCOOP powder Commonly known as: MiraLax Take 17 g by mouth daily. senna-docusate sodium 8.6-50 MG tablet Commonly known as: Senokot-S Take 1 tablet by mouth Daily as needed for constipation (if no bowel movement in 3 days). valsartan 40 MG tablet Commonly known as: Diovan Take 1 tablet (40 mg) by mouth daily. STOP taking these medications docusate sodium 100 MG capsule Commonly known as: Colace finasteride 5 MG tablet Commonly known as: Proscar Where to Get Your Medications These medications were sent to [facility] [address] [place] [id number] Hours: Friday to Friday 10 am to 6 pm guaiFENesin 600 MG 12 hr tablet These medications were sent to [place] [id number] [id number] apixaban 5 MG tablet Recommended Follow-up: No follow-up provider specified. Complexity of Follow up: [] Moderate Complexity: follow up within 7-14 calendar days (69511) [x] Severe Complexity: follow up within 7 calendar days (62913) Follow up Testing, Pending results or Referrals at Transitional Care Visit: [] yes [x] no Instructions to MA: Please call patient on day after discharge (must document patient contacted within 2 business days of discharge). Follow up questions for MA: 1. Did you get medications filled and taking them as instructed from discharge? 2. Are you following your discharge instructions from your hospital stay? 3. Please confirm patient is scheduled for a follow up appointment within the above time frame. Signed: Conrad Louie DO Division of Hospitalist Medicine [facility] 10/06/2023, 4:05 PM documented in this encounter [facility] 10-06-2023 Note Formatting of this n ote might be different from the original. Care Managment Initial Assessment Date: 10/06/2023 Patient Name: Ciro Sales : 1935 Patient Information Source of Information: Patient Cognition/Language: WFL - Within Functional Limits Permission given to speak with patient self pay representative/caregiver as indicated: Yes Confirmation of Payer with patient/family: Yes Payer Name: [employer] Medicare : No Confirmation of Primary Care Physician: Confirmed PCP Name: Hermann Damian Seen in last 2 years?: Yes Primary Caregiver: Self If assistance needed, confirmed caregiver ready, willing and able to care for patient at discharge: Yes Confirmed with: Manju Sales, spouse Living Arrangements Current Residence: House Number of Floors 1 Number of Entry Steps: 3 Bed/Bath Levels: Both first floor Facility: Facility Name: Plan to Return: Lives with: Spouse/significant other Support Systems: Spouse/significant other, Children, Family members Activities of Daily Living Ambulation: Independent Bathing/Dressing: Independent Elimination/Continence/Toileting: Independent Feeding: Independent Who Assists with Activities of Daily Living: Instrumental Activities of Daily Living Prescription Coverage: Yes Pharmacy Used: [facility] Medication Management: Independent Transportation/Shopping: Transportation Mode: Car Needs Assistance with Transportation at Discharge: No Meal Preparation: Independent Laundry/Cleaning: Independent Finances/Bill Paying: Independent Communication: Types of Care Services/Equipment Utilized Care Services: Dialysis Type: Durable Medical Equipment: Cane, Walker Patient's Goal/Discharge Plan Patient expects to be discharged to: home with home care Discharge Planning Actions: No needs identified Patient's Choice Rights and [employer] and Collaborative Relationships Disclosed as Indicated for Post-Acute Care: Interdisciplinary Team Engagement: Home Health Care Social Work Referral for: Additional Information: Patient admitted to for hypoxia. Regular diet noted. Lopez noted. IV Rocephin noted. Met with pt at bedside, introduced self and explained role of TCC. Pt has insurance with RX coverage, active with PCP. Family in room with patient. Patient lives with spouse. Patient is active with [facility], piter Arias is following. DCP is home with homecare. TCC to assist and follow as needed. Zoë Trimble RN [facility] 10-06-2023 Note Formatting of this n ote might be different from the original. Care Managment Initial Assessment Date: 10/06/2023 Patient Name: Ciro Sales : 1935 Patient Information Source of Information: Patient Cognition/Language: WFL - Within Functional Limits Permission given to speak with patient self pay representative/caregiver as indicated: Yes Confirmation of Payer with patient/family: Yes Payer Name: [employer] Medicare [place]: No Confirmation of Primary Care Physician: Confirmed PCP Name: Hermann Damian Seen in last 2 years?: Yes Primary Caregiver: Self If assistance needed, confirmed caregiver ready, willing and able to care for patient at discharge: Yes Confirmed with: Manju Sales, spouse Living Arrangements Current Residence: House Number of Floors 1 Number of Entry Steps: 3 Bed/Bath Levels: Both first floor Facility: Facility Name: Plan to Return: Lives with: Spouse/significant other Support Systems: Spouse/significant other, Children, Family members Activities of Daily Living Ambulation: Independent Bathing/Dressing: Independent Elimination/Continence/Toileting: Independent Feeding: Independent Who Assists with Activities of Daily Living: Instrumental Activities of Daily Living Prescription Coverage: Yes Pharmacy Used: [facility] Medication Management: Independent Transportation/Shopping: Transportation Mode: Car Needs Assistance with Transportation at Discharge: No Meal Preparation: Independent Laundry/Cleaning: Independent Finances/Bill Paying: Independent Communication: Types of Care Services/Equipment Utilized Care Services: Dialysis Type: Durable Medical Equipment: Cane, Walker Patient's Goal/Discharge Plan Patient expects to be discharged to: home with home care Discharge Planning Actions: No needs identified Patient's Choice Rights and [employer] and Collaborative Relationships Disclosed as Indicated for Post-Acute Care: Interdisciplinary Team Engagement: Home Health Care Social Work Referral for: Additional Information: Patient admitted to for hypoxia. Regular diet noted. Lopez noted. IV Rocephin noted. Met with pt at bedside, introduced self and explained role of TCC. Pt has insurance with RX coverage, active with PCP. Family in room with patient. Patient lives with spouse. [facility] Ari[facility]. DCP is home with homecare. TCC to assist and follow as needed. Zoë Trimble RN [facility] 10-05-2023 Nurse Note Patient O2 drops into the mid to low 80s during his sleep requiring 2L NC overnight. [facility] 10-05-2023 Nurse Note Patient O2 drops into the mid to low 80s during his sleep requiring 2L NC overnight. documented in this encounter [facility] 10-05-2023 Plan of care note Problem: Knowledge Deficit Goal: Patient/family/caregiver demonstrates understanding of disease process, treatment plan, medications, and discharge instructions Outcome: Progressing Problem: Potential for Compromised Skin Integrity Goal: Skin Integrity is Maintained or Improved Outcome: Progressing Goal: Nutritional status is improving Outcome: Progressing Problem: Urinary Incontinence Goal: Perineal skin integrity is maintained or improved Outcome: Progressing Problem: Safety - Adult Goal: Free from fall injury Outcome: Progressing Problem: Discharge Planning Goal: Discharge to home or other facility with appropriate resources Outcome: Progressing Problem: Chronic Conditions and Co-morbidities Goal: Patient's chronic conditions and co-morbidity symptoms are monitored and maintained or improved Outcome: Progressing [facility] 10-05-2023 Consult note Associated Order (s): IP CONSULT TO PULMONOLOGY [facility], Pulmonary Critical Care Medicine PULMONARY CONSULTATION NOTE. 10/05/23 CONSULTING PHYSICIAN: DR Courtney REASON FOR REFERRAL: PE? Assessment- New hypoxia likely due to underlying pathology Questionable BL lower lobe Pe's LLE Femoral DVT History of previous Dvt 2022 , took Xarelto at that time. Chronic cough. Recommendations- Ion my review of images seems to be some mild small PE. 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 ECHO is pending, however low suspicon for RV strain given normal cardiac biomarkers. OK for DC from pulm standpoint. Recommend home oxygen evaluation on day of dc. Recommend postponement of planned urological surgery Thank you very much for this consultation, we will sign off. History of Present Illness This is a 88 y.o. M who was admitted to the hospital due to dyspnea. Was found to have low oxygen saturations when he presented to [facility] ED. He was sent in by what seems to be his home health aid who noticed he was dyspenic, generally ill and required attention. Of note patient recently had back surgery few months ago, is planning a urologic procedure this week. History of DVT in 2022 seems was unprovoked but only took 3 months Xarelto. Past Medical History Past Medical History: Diagnosis Date Acute deep vein thrombosis (DVT) of popliteal vein of left lower extremity (HCC) 11/18/2022 11/04/2022. xarelto x 3 months Anemia Arthritis Cancer (CMS/HCC) (HCC) BcC of nose DVT (deep venous thrombosis) (HCC) LLE GERD (gastroesophageal reflux disease) History of elevated PSA Hyperlipidemia Hypertension Poison gt 11/22/2020 Umbilical hernia without obstruction or gangrene SCHEDULED FOR THE SURGERY ON 05/28 Viral URI with cough 04/11/2022 Past Surgical History Past Surgical History: Procedure Laterality Date CATARACT EXTRACTION Right COLONOSCOPY HEMORRHOID SURGERY 1999 SHB HERNIA REPAIR Right inguinal LAMINECTOMY 07/31/2023 L2, L3, L4, L5 laminectomy L4-L5 fusion NOSE SURGERY A KID UMBILICAL HERNIA REPAIR 05/28/2019 Allergies Allergies Allergen Reactions Hydrocodone Other and Swelling Swelling of LEs Levonorgestrel-Ethinyl Estrad Unknown Pt denies Lisinopril Cough Seasonal Ic [Cholestatin] Other sinus Medications Medication Documentation Review Audit Reviewed by Yue L. Grace, RN (Registered Nurse) on 10/04/23 at 1539 Medication Order Taking? Sig Documenting Provider Last Dose Status alfuzosin ER (Uroxatral) 10 MG 24 hr tablet [id number] Yes Take 1 tablet (10 mg) by mouth daily. Do not crush, chew, or split. Nona Collins APRN - [facility] 10/03/2023 Active ASCORBIC ACID PO [id number] No Take 500 mg by mouth before bedtime. Historical ProviderMD Unknown Active Discontinued 10/04/23 1538 Calcium Citrate-Vitamin D (CALCIUM CITRATE + PO) [id number] Yes Take 600 mg by mouth before bedtime. Saima ProviderMD 10/02/2023 Active CHOLECALCIFEROL PO [id number] No Take 125 mcg by mouth before bedtime. Historical Provider, Unknown Active ciclopirox (Loprox) 0.77 % cream [id number] Yes Apply topically 2 times daily x4 weeks to affected toenails Gretchen Cabrera APRN - [facility] 10/02/2023 Active docusate sodium (Colace) 100 MG capsule [id number] No Take 1 capsule (100 mg) by mouth Daily as needed for constipation. Patient not taking: Reported on 10/03/2023 Gretchen Cabrera [employer] - 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 Unknown Active famotidine (Pepcid) 20 MG tablet [id number] No Take by mouth. Historical Provider, Unknown Active Ferrous Sulfate Dried (FERROUS SULFATE CR PO) [id number] Yes Take 65 mg by mouth 1 (one) time each day. Historical ProviderMD Past Week Active finasteride (Proscar) 5 MG tablet [id number] No Take 1 tablet (5 mg) by mouth daily. Do not crush, chew, or split. Patient not taking: Reported on 10/03/2023 Sana Marcos, DO Not Taking Active fluticasone (Flonase) 50 MCG/ACT nasal spray [id number] Yes Administer 2 sprays into each nostril daily. Shake gently. Before first use, prime pump. After use, clean tip and replace cap. Gretchen Cabrera, [employer] - [facility] 10/02/2023 Active Discontinued 10/04/23 1539 Multiple Vitamins-Minerals (CENTRUM SILVER 50+MEN PO) [id number] Yes Take by mouth 1 (one) time each day. Historical ProviderMD 10/02/2023 Active NON FORMULARY [id number] Yes 2 times daily as needed. Unk eye drop Saima ProviderMD 10/02/2023 Active polyethylene glycol, PEG, 3350 (MiraLax) 17 GM/SCOOP powder [id number] Yes Take 17 g by mouth daily. Sana Marcos, 10/03/2023 Active senna-docusate sodium (Senokot-S) 8.6-50 MG tablet [id number] Yes Take 1 tablet by mouth Daily as needed for constipation (if no bowel movement in 3 days). Sana Marcos, 10/03/2023 Active valsartan (Diovan) 40 MG tablet [id number] Yes Take 1 tablet (40 mg) by mouth daily. Gretchen Cabrera, [employer] - [facility] 10/03/2023 Active Social History Social History Tobacco Use Smoking status: Never Smokeless tobacco: Never Substance Use Topics Alcohol use: Yes Comment: 3-4 per year Family History Family History Problem Relation Name Age of Onset Heart disease Mother Cancer Father Review of Systems Review of Systems Constitutional: Negative for fatigue, fever and unexpected weight change. HENT: Negative for trouble swallowing and voice change. Postive for sinus congestion, runny nose, itchy eyes Eyes: Negative for photophobia and visual disturbance. Respiratory: Negative for chest tightness, Positive for shortness of breath= Cardiovascular: Negative for chest pain, palpitations and leg swelling. Gastrointestinal: Negative for abdominal pain, constipation, diarrhea and vomiting. Endocrine: Negative for cold intolerance, heat intolerance, polydipsia, polyphagia and polyuria. Genitourinary: Negative for dysuria and frequency. Musculoskeletal:Negative for myalgias, neck pain and neck stiffness. Skin: Negative for rash and wound. Allergic/Immunologic: Negative for food allergies and immunocompromised state. Neurological: Negative for tremors, weakness and numbness. Psychiatric/Behavioral: Negative for behavioral problems, confusion and sleep disturbance. Physical Exam Vitals: 10/05/23 0750 10/05/23 0800 10/05/23 0839 10/05/23 1102 BP: 131/79 BP Location: Right arm Patient Position: Lying Pulse: 67 Resp: 20 Temp: 36.5 C (97.7 F) TempSrc: Temporal SpO2: 98% 97% 97% Weight: Height: 5' 10 (1.778 m) General appearance: Not ill appearing, alert, no converstional dyspnea Head: Normocephalic, without obvious abnormality, atraumatic Eyes:Pupils bilateral equal and reactive, EOM intact, conjunctiva - no icterus , no injection Throat: Clear, no lesions, Mallampti =2, no tonsillar eythema or edema Neck: Supple, symmetrical, trachea midline, no severe cervical lymphadenopathy, no JVD Lungs: CTA Heart: RRR, S1, S2 normal, no murmur, click, rub or gallop Abdomen: soft, non-tender, nondistended. Bowel sounds normal Extremities: extremities normal, atraumatic, no cyanosis, edema Musculoskeletal - No deformities Skin: Skin color, texture, turgor normal. No rashes or lesions Neurological: No focal deficits, cranial nerves grossly intact, sensations intact Psychiatric : Mood and effect normal , alert and oriented times 4 LABS and Studies: Objective: Vital signs: (most recent): Blood pressure 131/79, pulse 67, temperature 36.5 C (97.7 F), temperature source Temporal, resp. rate 20, height 5' 10 (1.778 m), weight 207 lb (93.9 kg), SpO2 97%. CBC: Recent Labs 10/02/23 1155 10/03/23 1044 10/04/23 0027 WBC 9.0 7.0 5.6 HGB 12.1* 11.6* 10.6* HCT 39.3* 35.6* 33.6* PLT 237 216 200 BMP: Recent Labs 10/02/23 1155 10/03/23 1044 10/03/23 1847 NA 136 133* 132* K 4.2 4.6 4.7 CL 99 98 100 CO2 31* 27 27 BUN 26* 23* 22* CREATININE 1.56* 1.56* 1.41* GLUCOSE 111* 146* 137* CALCIUM 9.2 8.7 8.6 HEPATIC: Recent Labs 10/03/23 1044 AST 25 ALT 16 BILITOT 0.7 ALKPHOS 64 LACTATE: No lab exists for component: LACTA PROCALCITONIN: No results for input(s): PROCAL in the last 72 hours. TROPONIN: Recent Labs 10/03/23 1044 10/03/23 1349 10/03/23 1847 TROPONINI 0.012 <0.012 <0.012 CK: No results for input(s): CKTOTAL in the last 72 hours. BNP: Recent Labs 10/03/23 1044 BNP 777* LIPIDS: No results for input(s): CHOL, TRIG, HDL in the last 72 hours. No lab exists for component: LDLCHOLESTEROL INR: No results for input(s): INR in the last 72 hours. BLOOD GAS: No results for input(s): PH, PCO2, PO2, HCO3, O2SAT in the last 72 hours. UA: Recent Labs 10/04/232020 COLORU Yellow GLUCOSEU Normal TSH: No results for input(s): TSH in the last 72 hours. Cultures: No lab exists for component: LABURIN No lab exists for component: BC No lab exists for component: BLOODCULT2 No lab exists for component: CULTRESP No results for input(s): RESPCULT in the last 72 hours. No results for input(s): CXCATHTIP in the last 72 hours. No lab exists for component: LEGUR No lab exists for component: STREPNEUMAGU No results for input(s): LABGRAM in the last 72 hours. Radiology: CT-scan of the chest (personally reviewed) significant motion artifact but seems to be BL lower lobe small PE chest X-ray (personally reviewed) no acute process Venous duplex reviewed- L fem non occulsive DVT PFT's Pulmonary Functions Testing Results: None Geovanni Lyon MD [employer] Work Phone: 10-05-2023 Consult note Associated Order (s): IP CONSULT TO PULMONOLOGY [facility], Pulmonary Critical Care Medicine PULMONARY CONSULTATION NOTE. 10/05/23 CONSULTING PHYSICIAN: DR Courtney REASON FOR REFERRAL: PE? Assessment- New hypoxia likely due to underlying pathology Questionable BL lower lobe Pe's LLE Femoral DVT History of previous Dvt 2022 , took Xarelto at that time. Chronic cough. Recommendations- Ion my review of images seems to be some mild small PE. 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 ECHO is pending, however low suspicon for RV strain given normal cardiac biomarkers. OK for DC from pulm standpoint. Recommend home oxygen evaluation on day of dc. Recommend postponement of planned urological surgery Thank you very much for this consultation, we will sign off. History of Present Illness This is a 88 y.o. M who was admitted to the hospital due to dyspnea. Was found to have low oxygen saturations when he presented to [facility] ED. He was sent in by what seems to be his home health aid who noticed he was dyspenic, generally ill and required attention. Of note patient recently had back surgery few months ago, is planning a urologic procedure this week. History of DVT in 2022 seems was unprovoked but only took 3 months Xarelto. Past Medical History Past Medical History: Diagnosis Date Acute deep vein thrombosis (DVT) of popliteal vein of left lower extremity (HCC) 11/18/2022 11/04/2022. xarelto x 3 months Anemia Arthritis Cancer (CMS/HCC) (HCC) BcC of nose DVT (deep venous thrombosis) ([facility]) LLE GERD (gastroesophageal reflux disease) History of elevated PSA Hyperlipidemia Hypertension Poison gt 11/22/2020 Umbilical hernia without obstruction or gangrene SCHEDULED FOR THE SURGERY ON 05/28 Viral URI with cough 04/11/2022 Past Surgical History Past Surgical History: Procedure Laterality Date CATARACT EXTRACTION Right COLONOSCOPY HEMORRHOID SURGERY 1999 SHB HERNIA REPAIR Right inguinal LAMINECTOMY 07/31/2023 L2, L3, L4, L5 laminectomy L4-L5 fusion NOSE SURGERY A KID UMBILICAL HERNIA REPAIR 05/28/2019 Allergies Allergies Allergen Reactions Hydrocodone Other and Swelling Swelling of LEs Levonorgestrel-Ethinyl Estrad Unknown Pt denies Lisinopril Cough Seasonal Ic [Cholestatin] Other sinus Medications Medication Documentation Review Audit Reviewed by Yue Grace RN (Registered Nurse) on 10/04/23 at 1049 Medication Order Taking? Sig Documenting Provider Last Dose Status alfuzosin ER (Uroxatral) 10 MG 24 hr tablet [id number] Yes Take 1 tablet (10 mg) by mouth daily. Do not crush, chew, or split. Nona Collins APRN - [facility] 10/03/2023 Active ASCORBIC ACID PO [id number] No Take 500 mg by mouth before bedtime. Historical Provider, Unknown Active Discontinued 10/04/23 1538 Calcium Citrate-Vitamin D (CALCIUM CITRATE + PO) [id number] Yes Take 600 mg by mouth before bedtime. Historical ProviderMD 10/02/2023 Active CHOLECALCIFEROL PO [id number] No Take 125 mcg by mouth before bedtime. Historical Provider, Unknown Active ciclopirox (Loprox) 0.77 % cream [id number] Yes Apply topically 2 times daily x4 weeks to affected toenails Gretchen Cabrera APRN - 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 10/02/2023 Active docusate sodium (Colace) 100 MG capsule [id number] No Take 1 capsule (100 mg) by mouth Daily as needed for constipation. Patient not taking: Reported on 10/03/2023 Gretchen Cabrera APRN - 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 Unknown Active famotidine (Pepcid) 20 MG tablet [id number] No Take by mouth. Historical Provider, Unknown Active Ferrous Sulfate Dried (FERROUS SULFATE CR PO) [id number] Yes Take 65 mg by mouth 1 (one) time each day. Historical ProviderMD Past Week Active finasteride (Proscar) 5 MG tablet [id number] No Take 1 tablet (5 mg) by mouth daily. Do not crush, chew, or split. Patient not taking: Reported on 10/03/2023 Sana Marcos, DO Not Taking Active fluticasone (Flonase) 50 MCG/ACT nasal spray [id number] Yes Administer 2 sprays into each nostril daily. Shake gently. Before first use, prime pump. After use, clean tip and replace cap. Gretchen Cabrera APRN - 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 10/02/2023 Active Discontinued 10/04/23 1539 Multiple Vitamins-Minerals (CENTRUM SILVER 50+MEN PO) [id number] Yes Take by mouth 1 (one) time each day. Historical ProviderMD 10/02/2023 Active NON FORMULARY [id number] Yes 2 times daily as needed. Unk eye drop Historical ProviderMD 10/02/2023 Active polyethylene glycol, PEG, 3350 (MiraLax) 17 GM/SCOOP powder [id number] Yes Take 17 g by mouth daily. Sana Marcos, DO 10/03/2023 Active senna-docusate sodium (Senokot-S) 8.6-50 MG tablet [id number] Yes Take 1 tablet by mouth Daily as needed for constipation (if no bowel movement in 3 days). Sana Leblanc Priti, DO 10/03/2023 Active valsartan (Diovan) 40 MG tablet [id number] Yes Take 1 tablet (40 mg) by mouth daily. Gretchen Pita, [employer] - 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 10/03/2023 Active Social History Social History Tobacco Use Smoking status: Never Smokeless tobacco: Never Substance Use Topics Alcohol use: Yes Comment: 3-4 per year Family History Family History Problem Relation Name Age of Onset Heart disease Mother Cancer Father Review of Systems Review of Systems Constitutional: Negative for fatigue, fever and unexpected weight change. HENT: Negative for trouble swallowing and voice change. Postive for sinus congestion, runny nose, itchy eyes Eyes: Negative for photophobia and visual disturbance. Respiratory: Negative for chest tightness, Positive for shortness of breath= Cardiovascular: Negative for chest pain, palpitations and leg swelling. Gastrointestinal: Negative for abdominal pain, constipation, diarrhea and vomiting. Endocrine: Negative for cold intolerance, heat intolerance, polydipsia, polyphagia and polyuria. Genitourinary: Negative for dysuria and frequency. Musculoskeletal:Negative for myalgias, neck pain and neck stiffness. Skin: Negative for rash and wound. Allergic/Immunologic: Negative for food allergies and immunocompromised state. Neurological: Negative for tremors, weakness and numbness. Psychiatric/Behavioral: Negative for behavioral problems, confusion and sleep disturbance. Physical Exam Vitals: 10/05/23 0750 10/05/23 0800 10/05/23 0839 10/05/23 1102 BP: 131/79 BP Location: Right arm Patient Position: Lying Pulse: 67 Resp: 20 Temp: 36.5 C (97.7 F) TempSrc: Temporal SpO2: 98% 97% 97% Weight: Height: 5' 10 (1.778 m) General appearance: Not ill appearing, alert, no converstional dyspnea Head: Normocephalic, without obvious abnormality, atraumatic Eyes:Pupils bilateral equal and reactive, EOM intact, conjunctiva - no icterus , no injection Throat: Clear, no lesions, Mallampti =2, no tonsillar eythema or edema Neck: Supple, symmetrical, trachea midline, no severe cervical lymphadenopathy, no JVD Lungs: CTA Heart: RRR, S1, S2 normal, no murmur, click, rub or gallop Abdomen: soft, non-tender, nondistended. Bowel sounds normal Extremities: extremities normal, atraumatic, no cyanosis, edema Musculoskeletal - No deformities Skin: Skin color, texture, turgor normal. No rashes or lesions Neurological: No focal deficits, cranial nerves grossly intact, sensations intact Psychiatric : Mood and effect normal , alert and oriented times 4 LABS and Studies: Objective: Vital signs: (most recent): Blood pressure 131/79, pulse 67, temperature 36.5 C (97.7 F), temperature source Temporal, resp. rate 20, height 5' 10 (1.778 m), weight 207 lb (93.9 kg), SpO2 97%. CBC: Recent Labs 10/02/23 1155 10/03/23 1044 10/04/23 0027 WBC 9.0 7.0 5.6 HGB 12.1* 11.6* 10.6* HCT 39.3* 35.6* 33.6* PLT 237 216 200 BMP: Recent Labs 10/02/23 1155 10/03/23 1044 10/03/23 1847 NA 136 133* 132* K 4.2 4.6 4.7 CL 99 98 100 CO2 31* 27 27 BUN 26* 23* 22* CREATININE 1.56* 1.56* 1.41* GLUCOSE 111* 146* 137* CALCIUM 9.2 8.7 8.6 HEPATIC: Recent Labs 10/03/23 1044 AST 25 ALT 16 BILITOT 0.7 ALKPHOS 64 LACTATE: No lab exists for component: LACTA PROCALCITONIN: No results for input(s): PROCAL in the last 72 hours. TROPONIN: Recent Labs 10/03/23 1044 10/03/23 1349 10/03/23 1847 TROPONINI 0.012 <0.012 <0.012 CK: No results for input(s): CKTOTAL in the last 72 hours. BNP: Recent Labs 10/03/23 1044 BNP 777* LIPIDS: No results for input(s): CHOL, TRIG, HDL in the last 72 hours. No lab exists for component: LDLCHOLESTEROL INR: No results for input(s): INR in the last 72 hours. BLOOD GAS: No results for input(s): PH, PCO2, PO2, HCO3, O2SAT in the last 72 hours. UA: Recent Labs 10/04/232020 COLORU Yellow GLUCOSEU Normal TSH: No results for input(s): TSH in the last 72 hours. Cultures: No lab exists for component: LABURIN No lab exists for component: BC No lab exists for component: BLOODCULT2 No lab exists for component: CULTRESP No results for input(s): RESPCULT in the last 72 hours. No results for input(s): CXCATHTIP in the last 72 hours. No lab exists for component: LEGUR No lab exists for component: STREPNEUMAGU No results for input(s): LABGRAM in the last 72 hours. Radiology: CT-scan of the chest (personally reviewed) significant motion artifact but seems to be BL lower lobe small PE chest X-ray (personally reviewed) no acute process Venous duplex reviewed- L fem non occulsive DVT PFT's Pulmonary Functions Testing Results: None Geovanni Lyon MD documented in this encounter [facility] 10-04-2023 Plan of care note Problem: Knowledge Deficit Goal: Patient/family/caregiver demonstrates understanding of disease process, treatment plan, medications, and discharge instructions Outcome: Progressing Problem: Potential for Compromised Skin Integrity Goal: Skin Integrity is Maintained or Improved Outcome: Progressing Goal: Nutritional status is improving Outcome: Progressing Problem: Urinary Incontinence Goal: Perineal skin integrity is maintained or improved Outcome: Progressing Problem: Safety - Adult Goal: Free from fall injury Outcome: Progressing Problem: Discharge Planning Goal: Discharge to home or other facility with appropriate resources Outcome: Progressing Problem: Chronic Conditions and Co-morbidities Goal: Patient's chronic conditions and co-morbidity symptoms are monitored and maintained or improved Outcome: Progressing [facility] 10-04-2023 Plan of care note Problem: Knowledge Deficit Goal: Patient/family/caregiver demonstrates understanding of disease process, treatment plan, medications, and discharge instructions Outcome: Progressing Problem: Potential for Compromised Skin Integrity Goal: Skin Integrity is Maintained or Improved Outcome: Progressing Goal: Nutritional status is improving Outcome: Progressing Problem: Urinary Incontinence Goal: Perineal skin integrity is maintained or improved Outcome: Progressing Problem: Safety - Adult Goal: Free from fall injury Outcome: Progressing Problem: Discharge Planning Goal: Discharge to home or other facility with appropriate resources Outcome: Progressing Problem: Chronic Conditions and Co-morbidities Goal: Patient's chronic conditions and co-morbidity symptoms are monitored and maintained or improved Outcome: Progressing [facility] 10-03-2023 History and physical note Images from the original note were not included. Attending History and Physical Admit Date: 10/03/2023 PCP: Hermann Damian MD CHIEF COMPLAINT: SOB patient arrives to ED via EMS from home with complaints of shortness of breath. Patient was found to be at 89% on room air at home. Arrives 93% on room air on arrival. Patient denies any chest pain. Endorses lack of appetite and generalized weakness that he feels is getting worse. Sinus drainage and headache x2 months. Had procedure done in July, and has been having a hard time urinating following this so he has had a lopez catheter placed. States that this was changed last week at urology office. History Obtained From: Patient HISTORY OF PRESENT ILLNESS: Ciro is a 88 y.o. male with past medical history below who presents with chief complaint listed above. Today came to [facility] ED with chief complaint of needing evaluation for shortness of breath. Family checked patient's pulse ox at home and found it to be 89% on room air. On arrival here he is between 90 and 93% on room air. Patient denies chest pain. States he has sinus drainage, chest congestion. States his sinus drainage has been going on for 2 months ever since he had a back surgery. He does have shortness of breath with exertion. States has had a Lopez catheter in place since problems began after his back surgery. States he is scheduled for a urologic surgery next week to help be able to remove the Lopez catheter finally. Denies fevers ED COURSE: Lab studies obtained. White count 7.0. He has mild anemia. He has mild renal insufficiency which is chronic compared to his previous laboratory studies. Urinalysis does have positive nitrates, positive white blood cells. D-dimer is elevated 3.55. Laboratory studies reviewed by this examiner. his pulse ox drops to 87 to 88% on room air. Concern is pneumonia but there is no obvious pneumonia on chest x-ray. Has had a recent surgery within the last 2 months and his symptoms seem to begin after that. PE is a possibility. His D-dimer is elevated. A CT angiogram of the chest does not clearly state that he has a PE but it is a possibility. Because of hypoxia do feel the patient needs further workup and admission. Medications cefTRIAXone (Rocephin) 1,000 mg in sodium chloride 0.9 % 50 mL IVPB Mini-Bag Plus (has no administration in time range) Old medical Record Review as below : Sana Marcos DO Urology Encounter Date: 09/29/2023 Signed Cystoscopy Procedure Note Pre-operative Diagnosis: BPH, urinary retention Post-operative Diagnosis: BPH, urinary retention Procedure Details The risks, benefits, complications, treatment options, and expected outcomes were discussed with the patient. The patient and provider concurred with the proposed plan, giving informed consent. Written consent was obtained and scanned into the chart. Cystoscopy was performed without incident. The patient was placed in the supine position, prepped with Betadine, and draped in the usual sterile fashion. Lidocaine jelly was instilled into the urethra to effect local anesthesia. The sheathed digital flexible cystoscope was passed into the bladder without incident Findings: External genitalia: uncircumcised, balanitis, orthotopic meatus Urethra: penile urethra normal, bulbar urethra normal Prostate: significant enlargement. significant degree of obstruction to bladder outlet, large intravesical median lobe Bladder: No tumors, diverticulae, stones, or mucosal abnormalities were seen Ureteral orifices: Normal position and effluxing clear urine. Specimens: urine culture Complications: None. Patient tolerated the procedure well Plan: Discussed urinary retention with pt, , son Likely multifactorial (back/nerve related as well as obstructive from significantly enlarged prostate) Recommend starting finasteride, continuing alfuzosin Will plan TURP and SPT insertion May not be able to void after surgery, but at least would have SPT rather than urethral catheter Also given plugs to use today Ok to go camping New 16 fr coude catheter placed 20 ml in balloon Showed patient how to cap catheter as well Will admit for further evaluation and management. Past Medical History: Past Medical History: Diagnosis Date Acute deep vein thrombosis (DVT) of popliteal vein of left lower extremity (HCC) 11/18/2022 11/04/2022. xarelto x 3 months Anemia Arthritis Cancer (CMS/HCC) (HCC) BcC of nose DVT (deep venous thrombosis) (HCC) LLE GERD (gastroesophageal reflux disease) History of elevated PSA Hyperlipidemia Hypertension Poison gt 11/22/2020 Umbilical hernia without obstruction or gangrene SCHEDULED FOR THE SURGERY ON 05/28 Viral URI with cough 04/11/2022 Past Surgical History: Past Surgical History: Procedure Laterality Date CATARACT EXTRACTION Right COLONOSCOPY HEMORRHOID SURGERY 1999 [facility] HERNIA REPAIR Right inguinal LAMINECTOMY 07/31/2023 L2, L3, L4, L5 laminectomy L4-L5 fusion NOSE SURGERY A KID UMBILICAL HERNIA REPAIR 05/28/2019 Social History: Social History Socioeconomic History Marital status: Spouse name: Not on file Number of children: Not on file Years of education: Not on file Highest education level: Not on file Occupational History Not on file Tobacco Use Smoking status: Never Smokeless tobacco: Never Vaping Use Vaping Use: Never used Substance and Sexual Activity Alcohol use: Yes Comment: 3-4 per year Drug use: No Sexual activity: Not Currently Other Topics Concern Not on file Social History Narrative Not on file Social Determinants of Health Financial Resource Strain: Low Risk (04/10/2023) Overall Financial Resource Strain (CARDIA) Difficulty of Paying Living Expenses: Not very hard Food Insecurity: Patient Declined (08/05/2023) Hunger Vital Sign Worried About Running Out of Food in the Last Year: Patient declined Ran Out of Food in the Last Year: Patient declined Transportation Needs: Patient Declined (08/05/2023) PRAPARE - Transportation Lack of Transportation (Medical): Patient declined Lack of Transportation (Non-Medical): Patient declined Physical Activity: Insufficiently Active (04/10/2023) Exercise Vital Sign Days of Exercise per Week: 1 day Minutes of Exercise per Session: 20 min Stress: Not on file Social Connections: Not on file Intimate Partner Violence: Patient Declined (08/05/2023) Humiliation, Afraid, Rape, and Kick questionnaire Fear of Current or Ex-Partner: Patient declined Emotionally Abused: Patient declined Physically Abused: Patient declined Sexually Abused: Patient declined Housing Stability: Patient Declined (08/05/2023) Housing Stability Vital Sign Unable to Pay for Housing in the Last Year: Patient declined Number of Places Lived in the Last Year: Not on file Unstable Housing in the Last Year: Patient declined Family History: Family History Problem Relation Name Age of Onset Heart disease Mother Cancer Father Medications Prior to Admission: No current facility-administered medications on file prior to encounter. Current Outpatient Medications on File Prior to Encounter Medication Sig Dispense Refill alfuzosin ER (Uroxatral) 10 MG 24 hr tablet Take 1 tablet (10 mg) by mouth daily. Do not crush, chew, or split. 90 tablet 2 ASCORBIC ACID PO Take 500 mg by mouth before bedtime. calcium carbonate (Os-Mariana) 1250 (500 Ca) MG tablet Take by mouth daily. Calcium Citrate-Vitamin D (CALCIUM CITRATE + PO) Take 600 mg by mouth before bedtime. CHOLECALCIFEROL PO Take 125 mcg by mouth before bedtime. ciclopirox (Loprox) 0.77 % cream Apply topically 2 times daily x4 weeks to affected toenails 90 g 0 docusate sodium (Colace) 100 MG capsule Take 1 capsule (100 mg) by mouth Daily as needed for constipation. 90 capsule 1 famotidine (Pepcid) 20 MG tablet Take by mouth. Ferrous Sulfate Dried (FERROUS SULFATE CR PO) Take 65 mg by mouth 1 (one) time each day. finasteride (Proscar) 5 MG tablet Take 1 tablet (5 mg) by mouth daily. Do not crush, chew, or split. 90 tablet 3 fluticasone (Flonase) 50 MCG/ACT nasal spray Administer 2 sprays into each nostril daily. Shake gently. Before first use, prime pump. After use, clean tip and replace cap. 16 g 5 Loratadine (CLARITIN PO) Take 10 mg by mouth before bedtime. Multiple Vitamins-Minerals (CENTRUM SILVER 50+MEN PO) Take by mouth 1 (one) time each day. NON FORMULARY 2 times daily as needed. Unk eye drop polyethylene glycol, PEG, 3350 (MiraLax) 17 GM/SCOOP powder Take 17 g by mouth daily. 1020 g 0 senna-docusate sodium (Senokot-S) 8.6-50 MG tablet Take 1 tablet by mouth Daily as needed for constipation (if no bowel movement in 3 days). 30 tablet 1 valsartan (Diovan) 40 MG tablet Take 1 tablet (40 mg) by mouth daily. 30 tablet 1 Allergies: Allergies Allergen Reactions Hydrocodone Other and Swelling Swelling of LEs Levonorgestrel-Ethinyl Estrad Unknown Pt denies Lisinopril Cough Seasonal Ic [Cholestatin] Other sinus REVIEW OF SYSTEMS: Constitutional: Negative for fever, chills, activity change and unexpected weight change. HEENT: Negative for congestion, postnasal drip and sneezing. Eyes: Negative for itching and visual disturbance. Respiratory: Negative for apnea,choking and stridor. Cardiovascular: Negative for chest pain. Gastrointestinal: Negative for nausea, vomiting, abdominal pain, diarrhea and blood in stool. Genitourinary: Negative for dysuria, frequency and flank pain. Musculoskeletal: Negative for myalgias and joint swelling. Skin: Negative for rash. Neurological: Negative for dizziness, tremors, seizures, syncope, facial asymmetry, speech difficulty, weakness, numbness and headaches. Hematological: Negative for adenopathy. Psychiatric/Behavioral: Negative for suicidal ideas, behavioral problems, self-injury and dysphoric mood. Vitals: BP 152/90 (BP Location: Left arm, Patient Position: Lying) Pulse 83 Temp 36.6 C (97.9 F) (Temporal) Resp 18 Ht 5' 10 (1.778 m) Wt 210 lb (95.3 kg) SpO2 96% BMI 30.13 kg/m BMI Classification: Pulse Ox: SpO2 Av.5 % Min: 92 % Max: 98 % Supplemental O2: O2 Flow Rate (L/min): 3 L/min PHYSICAL EXAM: General appearance: No apparent distress, appears stated age and cooperative with exam. HEENT: Normal cephalic, atraumatic without obvious deformity. Pupils equal, round, and reactive to light. Extra ocular muscles intact. Conjunctivae/corneas clear. Neck: Supple, with full range of motion. No jugular venous distention. Trachea midline. No lymphadenopathy. Respiratory: Normal respiratory effort. Clear to auscultation, bilaterally without Rales/Wheezes/Rhonchi. Cardiovascular: Regular rate and rhythm with normal S1/S2 without murmurs, rubs or gallops. Abdomen: Soft, non-tender, non-distended with normal bowel sounds. No rebound or guarding. Musculoskeletal: No clubbing, cyanosis or edema bilaterally. Full range of motion without deformity, +2 peripheral pulses in all extremities. Skin: Skin color, texture, turgor normal. No rashes or lesions. Neurologic: Neurovascularly intact without any focal sensory/motor deficits. Cranial nerves: II-XII intact, grossly non-focal. Psychiatric: Alert and oriented, thought content appropriate, normal insight. DATA: CBC: Recent Labs 10/02/23 1155 10/03/23 1044 WBC 9.0 7.0 RBC 4.47 4.14* HGB 12.1* 11.6* HCT 39.3* 35.6* MCV 87.9 86.0 RDW 13.7 13.7 PLT 237 216 BMP: Recent Labs 10/02/23 1155 10/03/23 1044 NA 136 133* K 4.2 4.6 CL 99 98 CO2 31* 27 BUN 26* 23* CREATININE 1.56* 1.56* GLUCOSE 111* 146* CALCIUM 9.2 8.7 ANIONGAP 6 8 LIVER PROFILE: Recent Labs 10/03/23 1044 AST 25 ALT 16 BILITOT 0.7 ALKPHOS 64 PROT 6.7 PT/INR: No results for input(s): PROTIME, INR in the last 72 hours. CARDIAC ENZYMES: Recent Labs 10/03/23 1044 10/03/23 1349 10/03/23 1847 TROPONINI 0.012 <0.012 <0.012 Procalcitonin: No results found for: PROCAL Urine Culture: Results for orders placed or performed in visit on 09/29/23 Urine culture Specimen: Urine, Clean Catch Result Value Ref Range Urine Culture SEE NOTE (A) COVID-19 PCR: No results for input(s): COVID19 in the last 72 hours. I reviewed: [x] laboratory results [x] radiographic results At the time of today's encounter. Pt was advised of the results. IMPRESSION: Data: (CAT1) Reviewed 3 or more notes from different specialty or health system (each=1). (CAT1) Reviewed 3 or more labs/studies ordered by another provider not previously counted (each=1, panels count as 1). (CAT1) Ordered 2 new labs and/or studies (each=1, panels count as 1). (LOW: 2x CAT1 or independent historian MOD: 3x CAT1 or 1x CAT3 EXTENSIVE: 3x CAT1 and 1x CAT3) CTA Chest IMPRESSION: Significantly limited study. No large acute central pulmonary embolus. Small regions of diminished attenuation within lower lobe and right middle lobe pulmonary arterial branches may be artifactual, however true filling defect within the right middle lobe and upper lobe segmental branches (i.e. pulmonary embolus) are a possibility. Consider follow-up duplex ultrasound of the lower extremities, correlation with patient risk factors and short-term follow-up exam. CXR IMPRESSION: Mild cardiomegaly. Assessment Discussed management with the ED provider and agree with hospitalization. Acute, acute on chronic, unstable/uncontrolled chronic problems/diagnoses: UTI Hypoxia SOB B/L Leg edema Elevated ProBNP 777 EKG RBBB LAFB Elevated D Dimer Stable chronic problems affecting care, new non-acute diagnoses: Hypertension Chronic kidney disease stage III with baseline creatinine 1.4-1.5 Lumbar spinal stenosis/spondylosis--status post L2, L3, L4, L5 laminectomy, L4-L5 fusion done on 07/31/2023 Plan As a result of the above findings & factors, the following mgmt was pursued: -Admit to tele -serial trop -2d echo -venous duplex b/l LE -Oxygen prn -iv ceftriaxone for UTI -Follow cx - Patient may need pulmonary evaluation as well as urology evaluation. -He has BPH and urinary retention He is scheduled for urology surgery next week. -PT/OT eval/increase activity -am labs, replace lytes prn -vitals per routine -home meds as ordered - Delirium precautions: increase activity, limit nighttime disturbances, and avoid anticholinergic meds, benzos, etc -DVT prophylaxis: [] Lovenox [] Heparin [] SCDs [x] Encourage ambulation [] Already on Anticoagulation -see below for additional orders, further recommendations to follow Orders Placed This Encounter Procedures COVID-19, Flu A/B, and RSV Combo Urine culture XR chest 1 view CTA chest angiogram w and/or wo IV contrast Basic metabolic panel CBC auto differential Troponin, with Serial Reflex NT PRO BNP D-dimer, quantitative Hepatic function panel Urinalysis complete with reflex to Culture Complete Urinalysis Troponin I Troponin I Vital Signs Telemetry monitoring for Arrhythmia Management Nursing communication Please do Home medication reconciliation Oxygen Therapy - Device: Nasal Cannula; Indication for O2: SpO2 less than 90%; Initial Flow Rate (L/Min) (1-6 L/Min): 2; SpO2 Goal (%): 90-96%; Initiate Oxygen Titration: Yes; Should O2 be decreased below initial flow rate to room air? Yes ECG 12 lead Insert peripheral IV Admit to inpatient Vascular US lower extremity venous duplex bilateral Code status: Full Anticipated Discharge - Date - TBD - Location - TBD - Pending the following - Labs/Images/Hospital course/PT OT evaluation Total time spent (which include face to face and non face to face encounters) : 55 minutes. Toxic drug monitoring/narrow therapeutic index drug monitoring : # Drug name : # Route administered : oral # Method of monitoring : Labs Extended Emergency Contact Information Primary Emergency Contact: Manju Sales Relation: Spouse Please forward a copy of this H&P to the patient's PCP. Thank you. Electronically signed by Jeremie Adame MD at 10:18 PM [place] Phone: 10-03-2023 History and physical note Images from the original note were not included. Attending History and Physical Admit Date: 10/03/2023 PCP: Hermann aDmian MD CHIEF COMPLAINT: SOB patient arrives to ED via EMS from home with complaints of shortness of breath. Patient was found to be at 89% on room air at home. Arrives 93% on room air on arrival. Patient denies any chest pain. Endorses lack of appetite and generalized weakness that he feels is getting worse. Sinus drainage and headache x2 months. Had procedure done in July, and has been having a hard time urinating following this so he has had a lopez catheter placed. States that this was changed last week at urology office. History Obtained From: Patient HISTORY OF PRESENT ILLNESS: Ciro is a 88 y.o. male with past medical history below who presents with chief complaint listed above. Today came to [facility] ED with chief complaint of needing evaluation for shortness of breath. Family checked patient's pulse ox at home and found it to be 89% on room air. On arrival here he is between 90 and 93% on room air. Patient denies chest pain. States he has sinus drainage, chest congestion. States his sinus drainage has been going on for 2 months ever since he had a back surgery. He does have shortness of breath with exertion. States has had a Lopez catheter in place since problems began after his back surgery. States he is scheduled for a urologic surgery next week to help be able to remove the Lopez catheter finally. Denies fevers ED COURSE: Lab studies obtained. White count 7.0. He has mild anemia. He has mild renal insufficiency which is chronic compared to his previous laboratory studies. Urinalysis does have positive nitrates, positive white blood cells. D-dimer is elevated 3.55. Laboratory studies reviewed by this examiner. his pulse ox drops to 87 to 88% on room air. Concern is pneumonia but there is no obvious pneumonia on chest x-ray. Has had a recent surgery within the last 2 months and his symptoms seem to begin after that. PE is a possibility. His D-dimer is elevated. A CT angiogram of the chest does not clearly state that he has a PE but it is a possibility. Because of hypoxia do feel the patient needs further workup and admission. Medications cefTRIAXone (Rocephin) 1,000 mg in sodium chloride 0.9 % 50 mL IVPB Mini-Bag Plus (has no administration in time range) Old medical Record Review as below : Sana Marcos DO Urology Encounter Date: 09/29/2023 Signed Cystoscopy Procedure Note Pre-operative Diagnosis: BPH, urinary retention Post-operative Diagnosis: BPH, urinary retention Procedure Details The risks, benefits, complications, treatment options, and expected outcomes were discussed with the patient. The patient and provider concurred with the proposed plan, giving informed consent. Written consent was obtained and scanned into the chart. Cystoscopy was performed without incident. The patient was placed in the supine position, prepped with Betadine, and draped in the usual sterile fashion. Lidocaine jelly was instilled into the urethra to effect local anesthesia. The sheathed digital flexible cystoscope was passed into the bladder without incident Findings: External genitalia: uncircumcised, balanitis, orthotopic meatus Urethra: penile urethra normal, bulbar urethra normal Prostate: significant enlargement. significant degree of obstruction to bladder outlet, large intravesical median lobe Bladder: No tumors, diverticulae, stones, or mucosal abnormalities were seen Ureteral orifices: Normal position and effluxing clear urine. Specimens: urine culture Complications: None. Patient tolerated the procedure well Plan: Discussed urinary retention with pt, , son Likely multifactorial (back/nerve related as well as obstructive from significantly enlarged prostate) Recommend starting finasteride, continuing alfuzosin Will plan TURP and SPT insertion May not be able to void after surgery, but at least would have SPT rather than urethral catheter Also given plugs to use today Ok to go camping New 16 fr coude catheter placed 20 ml in balloon Showed patient how to cap catheter as well Will admit for further evaluation and management. Past Medical History: Past Medical History: Diagnosis Date Acute deep vein thrombosis (DVT) of popliteal vein of left lower extremity (HCC) 11/18/2022 11/04/2022. xarelto x 3 months Anemia Arthritis Cancer (CMS/HCC) (HCC) BcC of nose DVT (deep venous thrombosis) (HCC) LLE GERD (gastroesophageal reflux disease) History of elevated PSA Hyperlipidemia Hypertension Poison gt 11/22/2020 Umbilical hernia without obstruction or gangrene SCHEDULED FOR THE SURGERY ON 05/28 Viral URI with cough 04/11/2022 Past Surgical History: Past Surgical History: Procedure Laterality Date CATARACT EXTRACTION Right COLONOSCOPY HEMORRHOID SURGERY 1999 [facility] HERNIA REPAIR Right inguinal LAMINECTOMY 07/31/2023 L2, L3, L4, L5 laminectomy L4-L5 fusion NOSE SURGERY A KID UMBILICAL HERNIA REPAIR 05/28/2019 Social History: Social History Socioeconomic History Marital status: Spouse name: Not on file Number of children: Not on file Years of education: Not on file Highest education level: Not on file Occupational History Not on file Tobacco Use Smoking status: Never Smokeless tobacco: Never Vaping Use Vaping Use: Never used Substance and Sexual Activity Alcohol use: Yes Comment: 3-4 per year Drug use: No Sexual activity: Not Currently Other Topics Concern Not on file Social History Narrative Not on file Social Determinants of Health Financial Resource Strain: Low Risk (04/10/2023) Overall Financial Resource Strain (CARDIA) Difficulty of Paying Living Expenses: Not very hard Food Insecurity: Patient Declined (08/05/2023) Hunger Vital Sign Worried About Running Out of Food in the Last Year: Patient declined Ran Out of Food in the Last Year: Patient declined Transportation Needs: Patient Declined (08/05/2023) PRAPARE - Transportation Lack of Transportation (Medical): Patient declined Lack of Transportation (Non-Medical): Patient declined Physical Activity: Insufficiently Active (04/10/2023) Exercise Vital Sign Days of Exercise per Week: 1 day Minutes of Exercise per Session: 20 min Stress: Not on file Social Connections: Not on file Intimate Partner Violence: Patient Declined (08/05/2023) Humiliation, Afraid, Rape, and Kick questionnaire Fear of Current or Ex-Partner: Patient declined Emotionally Abused: Patient declined Physically Abused: Patient declined Sexually Abused: Patient declined Housing Stability: Patient Declined (08/05/2023) Housing Stability Vital Sign Unable to Pay for Housing in the Last Year: Patient declined Number of Places Lived in the Last Year: Not on file Unstable Housing in the Last Year: Patient declined Family History: Family History Problem Relation Name Age of Onset Heart disease Mother Cancer Father Medications Prior to Admission: No current facility-administered medications on file prior to encounter. Current Outpatient Medications on File Prior to Encounter Medication Sig Dispense Refill alfuzosin ER (Uroxatral) 10 MG 24 hr tablet Take 1 tablet (10 mg) by mouth daily. Do not crush, chew, or split. 90 tablet 2 ASCORBIC ACID PO Take 500 mg by mouth before bedtime. calcium carbonate (Os-Mariana) 1250 (500 Ca) MG tablet Take by mouth daily. Calcium Citrate-Vitamin D (CALCIUM CITRATE + PO) Take 600 mg by mouth before bedtime. CHOLECALCIFEROL PO Take 125 mcg by mouth before bedtime. ciclopirox (Loprox) 0.77 % cream Apply topically 2 times daily x4 weeks to affected toenails 90 g 0 docusate sodium (Colace) 100 MG capsule Take 1 capsule (100 mg) by mouth Daily as needed for constipation. 90 capsule 1 famotidine (Pepcid) 20 MG tablet Take by mouth. Ferrous Sulfate Dried (FERROUS SULFATE CR PO) Take 65 mg by mouth 1 (one) time each day. finasteride (Proscar) 5 MG tablet Take 1 tablet (5 mg) by mouth daily. Do not crush, chew, or split. 90 tablet 3 fluticasone (Flonase) 50 MCG/ACT nasal spray Administer 2 sprays into each nostril daily. Shake gently. Before first use, prime pump. After use, clean tip and replace cap. 16 g 5 Loratadine (CLARITIN PO) Take 10 mg by mouth before bedtime. Multiple Vitamins-Minerals (CENTRUM SILVER 50+MEN PO) Take by mouth 1 (one) time each day. NON FORMULARY 2 times daily as needed. Unk eye drop polyethylene glycol, PEG, 3350 (MiraLax) 17 GM/SCOOP powder Take 17 g by mouth daily. 1020 g 0 senna-docusate sodium (Senokot-S) 8.6-50 MG tablet Take 1 tablet by mouth Daily as needed for constipation (if no bowel movement in 3 days). 30 tablet 1 valsartan (Diovan) 40 MG tablet Take 1 tablet (40 mg) by mouth daily. 30 tablet 1 Allergies: Allergies Allergen Reactions Hydrocodone Other and Swelling Swelling of LEs Levonorgestrel-Ethinyl Estrad Unknown Pt denies Lisinopril Cough Seasonal Ic [Cholestatin] Other sinus REVIEW OF SYSTEMS: Constitutional: Negative for fever, chills, activity change and unexpected weight change. HEENT: Negative for congestion, postnasal drip and sneezing. Eyes: Negative for itching and visual disturbance. Respiratory: Negative for apnea,choking and stridor. Cardiovascular: Negative for chest pain. Gastrointestinal: Negative for nausea, vomiting, abdominal pain, diarrhea and blood in stool. Genitourinary: Negative for dysuria, frequency and flank pain. Musculoskeletal: Negative for myalgias and joint swelling. Skin: Negative for rash. Neurological: Negative for dizziness, tremors, seizures, syncope, facial asymmetry, speech difficulty, weakness, numbness and headaches. Hematological: Negative for adenopathy. Psychiatric/Behavioral: Negative for suicidal ideas, behavioral problems, self-injury and dysphoric mood. Vitals: BP 152/90 (BP Location: Left arm, Patient Position: Lying) Pulse 83 Temp 36.6 C (97.9 F) (Temporal) Resp 18 Ht 5' 10 (1.778 m) Wt 210 lb (95.3 kg) SpO2 96% BMI 30.13 kg/m BMI Classification: Pulse Ox: SpO2 Av.5 % Min: 92 % Max: 98 % Supplemental O2: O2 Flow Rate (L/min): 3 L/min PHYSICAL EXAM: General appearance: No apparent distress, appears stated age and cooperative with exam. HEENT: Normal cephalic, atraumatic without obvious deformity. Pupils equal, round, and reactive to light. Extra ocular muscles intact. Conjunctivae/corneas clear. Neck: Supple, with full range of motion. No jugular venous distention. Trachea midline. No lymphadenopathy. Respiratory: Normal respiratory effort. Clear to auscultation, bilaterally without Rales/Wheezes/Rhonchi. Cardiovascular: Regular rate and rhythm with normal S1/S2 without murmurs, rubs or gallops. Abdomen: Soft, non-tender, non-distended with normal bowel sounds. No rebound or guarding. Musculoskeletal: No clubbing, cyanosis or edema bilaterally. Full range of motion without deformity, +2 peripheral pulses in all extremities. Skin: Skin color, texture, turgor normal. No rashes or lesions. Neurologic: Neurovascularly intact without any focal sensory/motor deficits. Cranial nerves: II-XII intact, grossly non-focal. Psychiatric: Alert and oriented, thought content appropriate, normal insight. DATA: CBC: Recent Labs 10/02/23 1155 10/03/23 1044 WBC 9.0 7.0 RBC 4.47 4.14* HGB 12.1* 11.6* HCT 39.3* 35.6* MCV 87.9 86.0 RDW 13.7 13.7 PLT 237 216 BMP: Recent Labs 10/02/23 1155 10/03/23 1044 NA 136 133* K 4.2 4.6 CL 99 98 CO2 31* 27 BUN 26* 23* CREATININE 1.56* 1.56* GLUCOSE 111* 146* CALCIUM 9.2 8.7 ANIONGAP 6 8 LIVER PROFILE: Recent Labs 10/03/23 1044 AST 25 ALT 16 BILITOT 0.7 ALKPHOS 64 PROT 6.7 PT/INR: No results for input(s): PROTIME, INR in the last 72 hours. CARDIAC ENZYMES: Recent Labs 10/03/23 1044 10/03/23 1349 10/03/23 1847 TROPONINI 0.012 <0.012 <0.012 Procalcitonin: No results found for: PROCAL Urine Culture: Results for orders placed or performed in visit on 09/29/23 Urine culture Specimen: Urine, Clean Catch Result Value Ref Range Urine Culture SEE NOTE (A) COVID-19 PCR: No results for input(s): COVID19 in the last 72 hours. I reviewed: [x] laboratory results [x] radiographic results At the time of today's encounter. Pt was advised of the results. IMPRESSION: Data: (CAT1) Reviewed 3 or more notes from different specialty or health system (each=1). (CAT1) Reviewed 3 or more labs/studies ordered by another provider not previously counted (each=1, panels count as 1). (CAT1) Ordered 2 new labs and/or studies (each=1, panels count as 1). (LOW: 2x CAT1 or independent historian MOD: 3x CAT1 or 1x CAT3 EXTENSIVE: 3x CAT1 and 1x CAT3) CTA Chest IMPRESSION: Significantly limited study. No large acute central pulmonary embolus. Small regions of diminished attenuation within lower lobe and right middle lobe pulmonary arterial branches may be artifactual, however true filling defect within the right middle lobe and upper lobe segmental branches (i.e. pulmonary embolus) are a possibility. Consider follow-up duplex ultrasound of the lower extremities, correlation with patient risk factors and short-term follow-up exam. CXR IMPRESSION: Mild cardiomegaly. Assessment Discussed management with the ED provider and agree with hospitalization. Acute, acute on chronic, unstable/uncontrolled chronic problems/diagnoses: UTI Hypoxia SOB B/L Leg edema Elevated ProBNP 777 EKG RBBB LAFB Elevated D Dimer Stable chronic problems affecting care, new non-acute diagnoses: Hypertension Chronic kidney disease stage III with baseline creatinine 1.4-1.5 Lumbar spinal stenosis/spondylosis--status post L2, L3, L4, L5 laminectomy, L4-L5 fusion done on 07/31/2023 Plan As a result of the above findings & factors, the following mgmt was pursued: -Admit to tele -serial trop -2d echo -venous duplex b/l LE -Oxygen prn -iv ceftriaxone for UTI -Follow cx - Patient may need pulmonary evaluation as well as urology evaluation. -He has BPH and urinary retention He is scheduled for urology surgery next week. -PT/OT eval/increase activity -am labs, replace lytes prn -vitals per routine -home meds as ordered - Delirium precautions: increase activity, limit nighttime disturbances, and avoid anticholinergic meds, benzos, etc -DVT prophylaxis: [] Lovenox [] Heparin [] SCDs [x] Encourage ambulation [] Already on Anticoagulation -see below for additional orders, further recommendations to follow Orders Placed This Encounter Procedures COVID-19, Flu A/B, and RSV Combo Urine culture XR chest 1 view CTA chest angiogram w and/or wo IV contrast Basic metabolic panel CBC auto differential Troponin, with Serial Reflex NT PRO BNP D-dimer, quantitative Hepatic function panel Urinalysis complete with reflex to Culture Complete Urinalysis Troponin I Troponin I Vital Signs Telemetry monitoring for Arrhythmia Management Nursing communication Please do Home medication reconciliation Oxygen Therapy - Device: Nasal Cannula; Indication for O2: SpO2 less than 90%; Initial Flow Rate (L/Min) (1-6 L/Min): 2; SpO2 Goal (%): 90-96%; Initiate Oxygen Titration: Yes; Should O2 be decreased below initial flow rate to room air? Yes ECG 12 lead Insert peripheral IV Admit to inpatient Vascular US lower extremity venous duplex bilateral Code status: Full Anticipated Discharge - Date - TBD - Location - TBD - Pending the following - Labs/Images/Hospital course/PT OT evaluation Total time spent (which include face to face and non face to face encounters) : 55 minutes. Toxic drug monitoring/narrow therapeutic index drug monitoring : # Drug name : # Route administered : oral # Method of monitoring : Labs Extended Emergency Contact Information Primary Emergency Contact: Manju Sales Relation: Spouse Please forward a copy of this H&P to the patient's PCP. Thank you. Electronically signed by Jeremie Adame MD at 10:18 PM documented in this encounter [facility] 10-03-2023 Emergency department Note Attempted to call report to [facility] at this time, nurses in report, will call back when available. Izabella Guan RN 10/03/231910 [facility] 10-03-2023 Emergency department Note Attempted to call report to [facility] at this time, nurses in report, will call back when available. Izabella Guan RN 10/03/231910 EMERGENCY DEPARTMENT ENCOUNTER Pt Name: Ciro Sales Birthdate 1935 Date of evaluation: 10/03/2023 ED Provider: Stephen Schmitz MD CHIEF COMPLAINT Chief Complaint Patient presents with Shortness of Breath Patient arrives to ED via EMS from home with complaints of shortness of breath. Patient was found to be at 89% on room air at home. Arrives 93% on room air on arrival. Patient denies any chest pain. Endorses lack of appetite and generalized weakness that he feels is getting worse. Sinus drainage and headache x2 months. Had procedure done in July, and has been having a hard time urinating following this so he has had a lopez catheter placed. States that this was changed last week at urology office. HISTORY OF PRESENT ILLNESS (Location/Symptom, Timing/Onset, Context/Setting, Quality, Duration, Modifying Factors, Severity) Note limiting factors. I wore appropriate PPE for the entirety of this encounter. HPI Tennille Sales is a 88 y.o. male who presents to the emergency department with chief complaint of needing evaluation for shortness of breath. Family checked patient's pulse ox at home and found it to be 89% on room air. On arrival here he is between 90 and 93% on room air. Patient denies chest pain. States he has sinus drainage, chest congestion. States his sinus drainage has been going on for 2 months ever since he had a back surgery. He does have shortness of breath with exertion. States has had a Lopez catheter in place since problems began after his back surgery. States he is scheduled for a urologic surgery next week to help be able to remove the Lopez catheter finally. Denies fevers Nursing Notes were reviewed. Limitations to history: None Outside historians: Family and EMS REVIEW OF SYSTEMS Review of Systems: Pertinent positives as above per history of present illness. Other systems reviewed and found to be negative to a total of 10 systems reviewed. PAST MEDICAL HISTORY Past Medical History: Diagnosis Date Acute deep vein thrombosis (DVT) of popliteal vein of left lower extremity (HCC) 11/18/2022 11/04/2022. xarelto x 3 months Anemia Arthritis Cancer (CMS/HCC) (HCC) BcC of nose DVT (deep venous thrombosis) (HCC) LLE GERD (gastroesophageal reflux disease) History of elevated PSA Hyperlipidemia Hypertension Poison gt 11/22/2020 Umbilical hernia without obstruction or gangrene SCHEDULED FOR THE SURGERY ON 05/28 Viral URI with cough 04/11/2022 SURGICAL HISTORY Past Surgical History: Procedure Laterality Date CATARACT EXTRACTION Right COLONOSCOPY HEMORRHOID SURGERY 1999 [facility] HERNIA REPAIR Right inguinal LAMINECTOMY 07/31/2023 L2, L3, L4, L5 laminectomy L4-L5 fusion NOSE SURGERY A KID UMBILICAL HERNIA REPAIR 05/28/2019 CURRENT MEDICATIONS Previous Medications ALFUZOSIN ER (UROXATRAL) 10 MG 24 HR TABLET Take 1 tablet (10 mg) by mouth daily. Do not crush, chew, or split. ASCORBIC ACID PO Take 500 mg by mouth before bedtime. CALCIUM CARBONATE (OS-MARIANA) 1250 (500 CA) MG TABLET Take by mouth daily. CALCIUM CITRATE-VITAMIN D (CALCIUM CITRATE + PO) Take 600 mg by mouth before bedtime. CHOLECALCIFEROL PO Take 125 mcg by mouth before bedtime. CICLOPIROX (LOPROX) 0.77 % CREAM Apply topically 2 times daily x4 weeks to affected toenails DOCUSATE SODIUM (COLACE) 100 MG CAPSULE Take 1 capsule (100 mg) by mouth Daily as needed for constipation. FAMOTIDINE (PEPCID) 20 MG TABLET Take by mouth. FERROUS SULFATE DRIED (FERROUS SULFATE CR PO) Take 65 mg by mouth 1 (one) time each day. FINASTERIDE (PROSCAR) 5 MG TABLET Take 1 tablet (5 mg) by mouth daily. Do not crush, chew, or split. FLUTICASONE (FLONASE) 50 MCG/ACT NASAL SPRAY Administer 2 sprays into each nostril daily. Shake gently. Before first use, prime pump. After use, clean tip and replace cap. LORATADINE (CLARITIN PO) Take 10 mg by mouth before bedtime. MULTIPLE VITAMINS-MINERALS (CENTRUM SILVER 50+MEN PO) Take by mouth 1 (one) time each day. NON FORMULARY 2 times daily as needed. Unk eye drop POLYETHYLENE GLYCOL, PEG, 3350 (MIRALAX) 17 GM/SCOOP POWDER Take 17 g by mouth daily. SENNA-DOCUSATE SODIUM (SENOKOT-S) 8.6-50 MG TABLET Take 1 tablet by mouth Daily as needed for constipation (if no bowel movement in 3 days). VALSARTAN (DIOVAN) 40 MG TABLET Take 1 tablet (40 mg) by mouth daily. ALLERGIES Hydrocodone, Levonorgestrel-ethinyl estrad, Lisinopril, and Seasonal ic [cholestatin] FAMILY HISTORY Family History Problem Relation Name Age of Onset Heart disease Mother Cancer Father SOCIAL HISTORY Social History Socioeconomic History Marital status: Tobacco Use Smoking status: Never Smokeless tobacco: Never Vaping Use Vaping Use: Never used Substance and Sexual Activity Alcohol use: Yes Comment: 3-4 per year Drug use: No Sexual activity: Not Currently Social Determinants of Health Financial Resource Strain: Low Risk (04/10/2023) Overall Financial Resource Strain (CARDIA) Difficulty of Paying Living Expenses: Not very hard Food Insecurity: Patient Declined (08/05/2023) Hunger Vital Sign Worried About Running Out of Food in the Last Year: Patient declined Ran Out of Food in the Last Year: Patient declined Transportation Needs: Patient Declined (08/05/2023) PRAPARE - Transportation Lack of Transportation (Medical): Patient declined Lack of Transportation (Non-Medical): Patient declined Physical Activity: Insufficiently Active (04/10/2023) Exercise Vital Sign Days of Exercise per Week: 1 day Minutes of Exercise per Session: 20 min Intimate Partner Violence: Patient Declined (08/05/2023) Humiliation, Afraid, Rape, and Kick questionnaire Fear of Current or Ex-Partner: Patient declined Emotionally Abused: Patient declined Physically Abused: Patient declined Sexually Abused: Patient declined Housing Stability: Patient Declined (08/05/2023) Housing Stability Vital Sign Unable to Pay for Housing in the Last Year: Patient declined Unstable Housing in the Last Year: Patient declined SCREENINGS PHYSICAL EXAM ED Triage Vitals [10/03/23 1037] Temp Heart Rate Resp BP 36.8 C (98.2 F) 91 19 (!) 141/93 SpO2 Temp Source Heart Rate Source Patient Position 93 % Oral -- -- BP Location FiO2 (%) Right arm -- Physical Exam: Vital signs reviewed in nurse's notes. Patient is nontoxic in appearance. No respiratory distress. Head: Normocephalic, atraumatic Eyes: Pupils are equal, round and reactive to light. EOMI. Conjunctiva clear. Sclera anicteric ENT: Mucous membranes moist. Throat shows no erythema exudates or edema. Mastoids nontender. Neck: No anterior adenopathy. No tenderness or stiffness. Chest: Nontender. No obvious flail segments. Lungs: Decreased breath sounds at the bases bilaterally. Occasional expiratory wheeze. Heart: Regular rate and rhythm. No audible murmur or gallop. Abdomen: Soft, nondistended, nontender. No rebound or guarding. No signs of peritonitis. Back: No midline tenderness. No flank area tenderness. Extremities: No gross deformity. No obvious tenderness. No obvious joint swelling. No calf tenderness. Negative Homans sign. Good distal pulses in all 4 extremities. Neurologic: Alert and fully oriented. No focal motor, sensory deficits in all 4 extremities. Cranial nerves II through XII grossly intact. Cerebellar testing intact. DIAGNOSTIC RESULTS Procedures/EKG: Normal sinus rhythm. Rate of 90. Left axis deviation. 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 No significant change compared to previous of 07/23/2023. Today's EKG interpreted by this examiner EKG was reviewed by myself. [facility] RAD[facility]OLOGY (Per Emergency Physician): Chest x-ray: No acute infiltrate. No effusion. There is cardiomegaly. There is atelectasis. Interpreted by this examiner. CT angiogram of the chest to evaluate for PE is a significantly limited study. There is no large obvious central PE. There may be filling defect within the right middle lobe and upper lobe segmental branches versus artifact. Read by radiology. Reviewed by this examiner. Interpretation per the Radiologist below, if available at the time of this note: CTA chest angiogram w and/or wo IV contrast Final Result Significantly limited study. No large acute central pulmonary embolus. Small regions of diminished attenuation within lower lobe and right middle lobe pulmonary arterial branches may be artifactual, however true filling defect within the right middle lobe and upper lobe segmental branches (i.e. pulmonary embolus) are a possibility. Consider follow-up duplex ultrasound of the lower extremities, correlation with patient risk factors and short-term follow-up exam. Report Dictated on Electronically Signed By: Danisha Valentin MD Electronically Signed Date/Time: 10/03/2023 12:14 PM EDT XR chest 1 view Final Result Mild cardiomegaly. Report Dictated on Electronically Signed By: Danisha Valentin MD Electronically Signed Date/Time: 10/03/2023 11:11 AM EDT Vascular US lower extremity venous duplex bilateral (Results Pending) LABS: Labs Reviewed BASIC METABOLIC PANEL - Abnormal Result Value SODIUM 133 (*) POTASSIUM 4.6 CHLORIDE 98 CARBON DIOXIDE 27 UREA NITROGEN 23 (*) CREATININE 1.56 (*) GLUCOSE 146 (*) CALCIUM 8.7 ANION GAP 8 eGFR 42.7 (*) CBC WITH AUTO DIFFERENTIAL - Abnormal Auto WBC 7.0 RBC 4.14 (*) Hemoglobin 11.6 (*) Hematocrit 35.6 (*) MCV 86.0 MCH 28.0 MCHC 32.6 RDW 13.7 Platelets 216 MPV 9.9 nRBC 0.0 Neutrophils Relative 69.7 Lymphocytes Relative 19.9 Monocytes Relative 9.2 Eosinophils Relative 0.3 Basophils Relative 0.6 Immature Grans % 0.3 Neutrophils Absolute 4.9 Lymphocytes Absolute 1.4 Monocytes Absolute 0.7 Eosinophils Absolute 0.0 Basophils Absolute 0.0 Immature Grans Absolute 0.0 NT PRO BNP - Abnormal NT PRO BNP 777 (*) D-DIMER,QUANTITATIVE - Abnormal D-DIMER, INNOVANCE 3.55 (*) Narrative: Innovance D-Dimer values of <0.50 mg/L FEU can be used in combination with a pre-test probability model (e.g. Well's) to exclude pulmonary embolism (PE) disease, as well as an aid in the diagnosis of deep vein thrombosis (DVT). COMPLETE URINALYSIS - Abnormal Color, Urine Yellow Clarity, Urine Turbid (*) pH, Urine 6.5 Leukocytes, Urine 500 (*) Nitrite, Urine Positive (*) Protein, Urine 50 (*) Glucose, Urine Normal Bilirubin, Urine Negative Ketones, Urine Negative Urobilinogen, Urine 3 (*) Blood, Urine 0.03 (*) Volume, Urine 8-12 mL RBC, Urine 3-5 (*) WBC, Urine >100 (*) Squamous Epithelial, Urine 0-2 Bacteria, Urine Many (*) Amorphous Phosphates, Urine Few (*) SPECIFIC GRAVITY OF URINE (NUMERIC) 1.018 SARS-COV-2, FLU A/B, AND RSV COMBO - Normal SARS-CoV-2 Not Detected Respiratory Syncytial Virus Not Detected Influenza A Not Detected Influenza B Not Detected Narrative: Methodology: real-time, RT-PCR The SARS-CoV-2, Flu A/B, and RSV Combo assay is intended for in vitro diagnostic use under the FDA Emergency Use Authorization (EUA). This test has not been FDA cleared or approved. In compliance with this authorization, please visit www.fda.gov/media/544456/download or www.fda.gov/media/139458/download to access the applicable information sheets. TROPONIN, WITH SERIAL REFLEX - Normal TROPONIN I 0.012 Narrative: Patients with high levels of Biotin oral intake (ie >5 mg/day) may have falsely decreased Troponin levels. HEPATIC FUNCTION PANEL - Normal BILIRUBIN, TOTAL 0.7 BILIRUBIN, DIRECT 0.0 ALKALINE PHOSPHATASE 64 AST (SGOT) 25 ALT 16 ALBUMIN 3.5 TOTAL PROTEIN 6.7 URINE CULTURE COMPLETE URINALYSIS WITH REFLEX TO CULTURE Narrative: The following orders were created for panel order Urinalysis complete with reflex to Culture. Procedure Abnormality Status --------- ------ Complete Urinalysis[[id number]] Abnormal Final result Please view results for these tests on the individual orders. TROPONIN I TROPONIN I Lab studies obtained. White count 7.0. He has mild anemia. He has mild renal insufficiency which is chronic compared to his previous laboratory studies. Urinalysis does have positive nitrates, positive white blood cells. D-dimer is elevated 3.55. Laboratory studies reviewed by this examiner. EMERGENCY DEPARTMENT COURSE and DIFFERENTIAL DIAGNOSIS/MDM: Vitals: Vitals: 10/03/23 1037 10/03/23 1200 BP: (!) 141/93 136/73 BP Location: Right arm Pulse: 91 82 Resp: 19 (!) 28 Temp: 36.8 C (98.2 F) TempSrc: Oral SpO2: 93% (!) 92% Weight: 95.3 kg (210 lb) Height: 1.778 m (5' 10) Patient presents with hypoxia. He describes congestion, feels rattling in his chest. Here in the ED patient has episodes where his pulse ox drops to 87 to 88% on room air. Concern is pneumonia but there is no obvious pneumonia on chest x-ray. Has had a recent surgery within the last 2 months and his symptoms seem to begin after that. PE is a possibility. His D-dimer is elevated. A CT angiogram of the chest does not clearly state that he has a PE but it is a possibility. Because of hypoxia I do feel the patient needs further workup and admission. I discussed this with Dr. Orozco of the hospitalist group at [facility] who agrees with plans for admission. Patient may need pulmonary evaluation as well as urology evaluation. He is scheduled for urology surgery next week. Patient agrees with admission to [facility]. Patient is admitted in stable condition. The patient presented with chief complaint of low pulse ox. The differential diagnosis associated with this patient's presentation includes pneumonia, pneumothorax, bronchitis, PE, URI, CHF. Our workup consisted of ordering/reviewing: Laboratory studies, chest x-ray, CT scan of the chest, EKG. To aid in management, I performed an independent interpretation of Xray(s) chest x-ray as above EKG; see my interpretation elsewhere in the chart. I also reviewed external records from Inpatient notes admission in July for spinal stenosis surgery with lumbar laminectomy Outpatient notes urology office visits for urinary retention, benign prostatic hypertrophy. I discussed their care with Admitting team hospitalist. Consideration for escalation of care with: Admission/observation due to hypoxia.. The patient will be Admitted. The patient requires hospitalization due to hypoxia that needs further evaluation The patient needs Med/surg + tele level of care and not appropriate for a lower acuity location of care due to cardiac monitoring, vital sign monitoring frequently, oxygen management, need for IV medications Patient is in agreement with this plan. Medications cefTRIAXone (Rocephin) 1,000 mg in sodium chloride 0.9 % 50 mL IVPB Mini-Bag Plus (has no administration in time range) REVAL: CRITICAL CARE TIME Total Critical Care time was 15 minutes, excluding separately reportable procedures. There was a high probability of clinically significant/life threatening deterioration in the patient's condition which required my urgent intervention. CONSULTS: None PROCEDURES: Unless otherwise noted below, none Procedures Patients symptoms are consistent with sepsis, severe sepsis, or septic shock (If yes use .sepsiscoremeasure): no FINAL IMPRESSION 1. Hypoxia 2. Bilateral leg edema DISPOSITION Admit 10/03/2023 12:40:59 PM PATIENT REFERRED TO: No follow-up provider specified. DISCHARGE MEDICATIONS: New Prescriptions No medications on file (Comment: Please note this report has been produced using speech recognition software and may contain errors related to that system including errors in grammar, punctuation, and spelling, as well as words and phrases that may be inappropriate. If there are any questions or concerns please feel free to contact the dictating provider for clarification.) Stephen Schmitz MD (electronically signed) Emergency Medicine Provider Stephen Schmitz MD 10/03/23 1301 Report given to RN on H6. Pt remains a&ox3. Pt denies pain or discomfort. Pt with dyspnea w exertion, although denies sob. Pt given a microwave meal for dinner. Pt positioned for comfort, call light in reach Pt to [facility] via [facility]. Pt remains a&ox3 with no complaints documented in this encounter [facility] 10-03-2023 Telephone encounter Note Agree, thank you [facility] 10-03-2023 Miscellaneous Notes Agree, thank you S: [facility] Antionette calling [facility] for pt w/ wheezing B: Today A: HHN reports pt w/ audible wheezing. V/s--HR 90-94, R 22 shallow/rapid, SPO2 88-90% RA, T 97.3F, diminished B lung sounds. Pt reports excessive coughing causing him to vomit. Denies shortness of breath resting or w/ exertion or fever. Pt is clammy per HHN. R: Recheck SPO2 per HHN is 88-89%. RN advises 911 for safe transport to ED d/t need for O2 administration. HHN advised pt and is agreeable. TE to provider as FYI. Reason for Disposition Oxygen level (e.g., pulse oximetry) 90% or lower Advised 911 for supplemental O2 or breathing tx Protocols used: Breathing [id number] documented in this encounter [facility] 10-03-2023 Emergency department Triage note Report given to RN on H6. Pt remains a&ox3. Pt denies pain or discomfort. Pt with dyspnea w exertion, although denies sob. Pt given a microwave meal for dinner. Pt positioned for comfort, call light in reach [facility] 10-03-2023 Emergency department Triage note Pt to [facility] via [facility]. Pt remains a&ox3 with no complaints [facility] 10-03-2023 Physician Emergency department Note EMERGENCY DEPARTMENT ENCOUNTER Pt Name: Ciro Sales Birthdate 1935 Date of evaluation: 10/03/2023 ED Provider: Stephen Schmitz MD CHIEF COMPLAINT Chief Complaint Patient presents with Shortness of Breath Patient arrives to ED via EMS from home with complaints of shortness of breath. Patient was found to be at 89% on room air at home. Arrives 93% on room air on arrival. Patient denies any chest pain. Endorses lack of appetite and generalized weakness that he feels is getting worse. Sinus drainage and headache x2 months. Had procedure done in July, and has been having a hard time urinating following this so he has had a lopez catheter placed. States that this was changed last week at urology office. HISTORY OF PRESENT ILLNESS (Location/Symptom, Timing/Onset, Context/Setting, Quality, Duration, Modifying Factors, Severity) Note limiting factors. I wore appropriate PPE for the entirety of this encounter. HPI Tennille Sales is a 88 y.o. male who presents to the emergency department with chief complaint of needing evaluation for shortness of breath. Family checked patient's pulse ox at home and found it to be 89% on room air. On arrival here he is between 90 and 93% on room air. Patient denies chest pain. States he has sinus drainage, chest congestion. States his sinus drainage has been going on for 2 months ever since he had a back surgery. He does have shortness of breath with exertion. States has had a Lopez catheter in place since problems began after his back surgery. States he is scheduled for a urologic surgery next week to help be able to remove the Lopez catheter finally. Denies fevers Nursing Notes were reviewed. Limitations to history: None Outside historians: Family and EMS REVIEW OF SYSTEMS Review of Systems: Pertinent positives as above per history of present illness. Other systems reviewed and found to be negative to a total of 10 systems reviewed. PAST MEDICAL HISTORY Past Medical History: Diagnosis Date Acute deep vein thrombosis (DVT) of popliteal vein of left lower extremity (HCC) 11/18/2022 11/04/2022. xarelto x 3 months Anemia Arthritis Cancer (CMS/HCC) (HCC) BcC of nose DVT (deep venous thrombosis) ([facility]) LLE GERD (gastroesophageal reflux disease) History of elevated PSA Hyperlipidemia Hypertension Poison gt 11/22/2020 Umbilical hernia without obstruction or gangrene SCHEDULED FOR THE SURGERY ON 05/28 Viral URI with cough 04/11/2022 SURGICAL HISTORY Past Surgical History: Procedure Laterality Date CATARACT EXTRACTION Right COLONOSCOPY HEMORRHOID SURGERY 1999 [facility] HERNIA REPAIR Right inguinal LAMINECTOMY 07/31/2023 L2, L3, L4, L5 laminectomy L4-L5 fusion NOSE SURGERY A KID UMBILICAL HERNIA REPAIR 05/28/2019 CURRENT MEDICATIONS Previous Medications ALFUZOSIN ER (UROXATRAL) 10 MG 24 HR TABLET Take 1 tablet (10 mg) by mouth daily. Do not crush, chew, or split. ASCORBIC ACID PO Take 500 mg by mouth before bedtime. CALCIUM CARBONATE (OS-MARIANA) 1250 (500 CA) MG TABLET Take by mouth daily. CALCIUM CITRATE-VITAMIN D (CALCIUM CITRATE + PO) Take 600 mg by mouth before bedtime. CHOLECALCIFEROL PO Take 125 mcg by mouth before bedtime. CICLOPIROX (LOPROX) 0.77 % CREAM Apply topically 2 times daily x4 weeks to affected toenails DOCUSATE SODIUM (COLACE) 100 MG CAPSULE Take 1 capsule (100 mg) by mouth Daily as needed for constipation. FAMOTIDINE (PEPCID) 20 MG TABLET Take by mouth. FERROUS SULFATE DRIED (FERROUS SULFATE CR PO) Take 65 mg by mouth 1 (one) time each day. FINASTERIDE (PROSCAR) 5 MG TABLET Take 1 tablet (5 mg) by mouth daily. Do not crush, chew, or split. FLUTICASONE (FLONASE) 50 MCG/ACT NASAL SPRAY Administer 2 sprays into each nostril daily. Shake gently. Before first use, prime pump. After use, clean tip and replace cap. LORATADINE (CLARITIN PO) Take 10 mg by mouth before bedtime. MULTIPLE VITAMINS-MINERALS (CENTRUM SILVER 50+MEN PO) Take by mouth 1 (one) time each day. NON FORMULARY 2 times daily as needed. Unk eye drop POLYETHYLENE GLYCOL, PEG, 3350 (MIRALAX) 17 GM/SCOOP POWDER Take 17 g by mouth daily. SENNA-DOCUSATE SODIUM (SENOKOT-S) 8.6-50 MG TABLET Take 1 tablet by mouth Daily as needed for constipation (if no bowel movement in 3 days). VALSARTAN (DIOVAN) 40 MG TABLET Take 1 tablet (40 mg) by mouth daily. ALLERGIES Hydrocodone, Levonorgestrel-ethinyl estrad, Lisinopril, and Seasonal ic [cholestatin] FAMILY HISTORY Family History Problem Relation Name Age of Onset Heart disease Mother Cancer Father SOCIAL HISTORY Social History Socioeconomic History Marital status: Tobacco Use Smoking status: Never Smokeless tobacco: Never Vaping Use Vaping Use: Never used Substance and Sexual Activity Alcohol use: Yes Comment: 3-4 per year Drug use: No Sexual activity: Not Currently Social Determinants of Health Financial Resource Strain: Low Risk (04/10/2023) Overall Financial Resource Strain (CARDIA) Difficulty of Paying Living Expenses: Not very hard Food Insecurity: Patient Declined (08/05/2023) Hunger Vital Sign Worried About Running Out of Food in the Last Year: Patient declined Ran Out of Food in the Last Year: Patient declined Transportation Needs: Patient Declined (08/05/2023) PRAPARE - Transportation Lack of Transportation (Medical): Patient declined Lack of Transportation (Non-Medical): Patient declined Physical Activity: Insufficiently Active (04/10/2023) Exercise Vital Sign Days of Exercise per Week: 1 day Minutes of Exercise per Session: 20 min Intimate Partner Violence: Patient Declined (08/05/2023) Humiliation, Afraid, Rape, and Kick questionnaire Fear of Current or Ex-Partner: Patient declined Emotionally Abused: Patient declined Physically Abused: Patient declined Sexually Abused: Patient declined Housing Stability: Patient Declined (08/05/2023) Housing Stability Vital Sign Unable to Pay for Housing in the Last Year: Patient declined Unstable Housing in the Last Year: Patient declined SCREENINGS PHYSICAL EXAM ED Triage Vitals [10/03/23 1037] Temp Heart Rate Resp BP 36.8 C (98.2 F) 91 19 (!) 141/93 SpO2 Temp Source Heart Rate Source Patient Position 93 % Oral -- -- BP Location FiO2 (%) Right arm -- Physical Exam: Vital signs reviewed in nurse's notes. Patient is nontoxic in appearance. No respiratory distress. Head: Normocephalic, atraumatic Eyes: Pupils are equal, round and reactive to light. EOMI. Conjunctiva clear. Sclera anicteric ENT: Mucous membranes moist. Throat shows no erythema exudates or edema. Mastoids nontender. Neck: No anterior adenopathy. No tenderness or stiffness. Chest: Nontender. No obvious flail segments. Lungs: Decreased breath sounds at the bases bilaterally. Occasional expiratory wheeze. Heart: Regular rate and rhythm. No audible murmur or gallop. Abdomen: Soft, nondistended, nontender. No rebound or guarding. No signs of peritonitis. Back: No midline tenderness. No flank area tenderness. Extremities: No gross deformity. No obvious tenderness. No obvious joint swelling. No calf tenderness. Negative Homans sign. Good distal pulses in all 4 extremities. Neurologic: Alert and fully oriented. No focal motor, sensory deficits in all 4 extremities. Cranial nerves II through XII grossly intact. Cerebellar testing intact. DIAGNOSTIC RESULTS Procedures/EKG: Normal sinus rhythm. Rate of 90. Left axis deviation. 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 No significant change compared to previous of 07/23/2023. Today's EKG interpreted by this examiner EKG was reviewed by myself. Physician EKG interpretation can be found in [facility] RADIOLOGY (Per Emergency Physician): Chest x-ray: No acute infiltrate. No effusion. There is cardiomegaly. There is atelectasis. Interpreted by this examiner. CT angiogram of the chest to evaluate for PE is a significantly limited study. There is no large obvious central PE. There may be filling defect within the right middle lobe and upper lobe segmental branches versus artifact. Read by radiology. Reviewed by this examiner. Interpretation per the Radiologist below, if available at the time of this note: CTA chest angiogram w and/or wo IV contrast Final Result Significantly limited study. No large acute central pulmonary embolus. Small regions of diminished attenuation within lower lobe and right middle lobe pulmonary arterial branches may be artifactual, however true filling defect within the right middle lobe and upper lobe segmental branches (i.e. pulmonary embolus) are a possibility. Consider follow-up duplex ultrasound of the lower extremities, correlation with patient risk factors and short-term follow-up exam. Report Dictated on Electronically Signed By: Danisha Valentin MD Electronically Signed Date/Time: 10/03/2023 12:14 PM EDT XR chest 1 view Final Result Mild cardiomegaly. Report Dictated on Electronically Signed By: Danisha Valentin MD Electronically Signed Date/Time: 10/03/2023 11:11 AM EDT Vascular US lower extremity venous duplex bilateral (Results Pending) LABS: Labs Reviewed BASIC METABOLIC PANEL - Abnormal Result Value SODIUM 133 (*) POTASSIUM 4.6 CHLORIDE 98 CARBON DIOXIDE 27 UREA NITROGEN 23 (*) CREATININE 1.56 (*) GLUCOSE 146 (*) CALCIUM 8.7 ANION GAP 8 eGFR 42.7 (*) CBC WITH AUTO DIFFERENTIAL - Abnormal Auto WBC 7.0 RBC 4.14 (*) Hemoglobin 11.6 (*) Hematocrit 35.6 (*) MCV 86.0 MCH 28.0 MCHC 32.6 RDW 13.7 Platelets 216 MPV 9.9 nRBC 0.0 Neutrophils Relative 69.7 Lymphocytes Relative 19.9 Monocytes Relative 9.2 Eosinophils Relative 0.3 Basophils Relative 0.6 Immature Grans % 0.3 Neutrophils Absolute 4.9 Lymphocytes Absolute 1.4 Monocytes Absolute 0.7 Eosinophils Absolute 0.0 Basophils Absolute 0.0 Immature Grans Absolute 0.0 NT PRO BNP - Abnormal NT PRO BNP 777 (*) D-DIMER,QUANTITATIVE - Abnormal D-DIMER, INNOVANCE 3.55 (*) Narrative: Innov[employer] D-Dimer values of <0.50 mg/L FEU can be used in combination with a pre-test probability model (e.g. Well's) to exclude pulmonary embolism (PE) disease, as well as an aid in the diagnosis of deep vein thrombosis (DVT). COMPLETE URINALYSIS - Abnormal Color, Urine Yellow Clarity, Urine Turbid (*) pH, Urine 6.5 Leukocytes, Urine 500 (*) Nitrite, Urine Positive (*) Protein, Urine 50 (*) Glucose, Urine Normal Bilirubin, Urine Negative Ketones, Urine Negative Urobilinogen, Urine 3 (*) Blood, Urine 0.03 (*) Volume, Urine 8-12 mL RBC, Urine 3-5 (*) WBC, Urine >100 (*) Squamous Epithelial, Urine 0-2 Bacteria, Urine Many (*) Amorphous Phosphates, Urine Few (*) SPECIFIC GRAVITY OF URINE (NUMERIC) 1.018 SARS-COV-2, FLU A/B, AND RSV COMBO - Normal SARS-CoV-2 Not Detected Respiratory Syncytial Virus Not Detected Influenza A Not Detected Influenza B Not Detected Narrative: Methodology: real-time, RT-PCR The SARS-CoV-2, Flu A/B, and RSV Combo assay is intended for in vitro diagnostic use under the FDA Emergency Use Authorization (EUA). This test has not been FDA cleared or approved. In compliance with this authorization, please visit www.fda.gov/media/629432/download or www.fda.gov/media/472046/download to access the applicable information sheets. TROPONIN, WITH SERIAL REFLEX - Normal TROPONIN I 0.012 Narrative: Patients with high levels of Biotin oral intake (ie >5 mg/day) may have falsely decreased Troponin levels. HEPATIC FUNCTION PANEL - Normal BILIRUBIN, TOTAL 0.7 BILIRUBIN, DIRECT 0.0 ALKALINE PHOSPHATASE 64 AST (SGOT) 25 ALT 16 ALBUMIN 3.5 TOTAL PROTEIN 6.7 URINE CULTURE COMPLETE URINALYSIS WITH REFLEX TO CULTURE Narrative: The following orders were created for panel order Urinalysis complete with reflex to Culture. Procedure Abnormality Status --------- ------ Complete Urinalysis[[id number]] Abnormal Final result Please view results for these tests on the individual orders. TROPONIN I TROPONIN I Lab studies obtained. White count 7.0. He has mild anemia. He has mild renal insufficiency which is chronic compared to his previous laboratory studies. Urinalysis does have positive nitrates, positive white blood cells. D-dimer is elevated 3.55. Laboratory studies reviewed by this examiner. EMERGENCY DEPARTMENT COURSE and DIFFERENTIAL DIAGNOSIS/MDM: Vitals: Vitals: 10/03/23 1037 10/03/23 1200 BP: (!) 141/93 136/73 BP Location: Right arm Pulse: 91 82 Resp: 19 (!) 28 Temp: 36.8 C (98.2 F) TempSrc: Oral SpO2: 93% (!) 92% Weight: 95.3 kg (210 lb) Height: 1.778 m (5' 10) Patient presents with hypoxia. He describes congestion, feels rattling in his chest. Here in the ED patient has episodes where his pulse ox drops to 87 to 88% on room air. Concern is pneumonia but there is no obvious pneumonia on chest x-ray. Has had a recent surgery within the last 2 months and his symptoms seem to begin after that. PE is a possibility. His D-dimer is elevated. A CT angiogram of the chest does not clearly state that he has a PE but it is a possibility. Because of hypoxia I do feel the patient needs further workup and admission. I discussed this with Dr. Orozco of the hospitalist group at [facility] who agrees with plans for admission. Patient may need pulmonary evaluation as well as urology evaluation. He is scheduled for urology surgery next week. Patient agrees with admission to [facility]. Patient is admitted in stable condition. The patient presented with chief complaint of low pulse ox. The differential diagnosis associated with this patient's presentation includes pneumonia, pneumothorax, bronchitis, PE, URI, CHF. Our workup consisted of ordering/reviewing: Laboratory studies, chest x-ray, CT scan of the chest, EKG. To aid in management, I performed an independent interpretation of Xray(s) chest x-ray as above EKG; see my interpretation elsewhere in the chart. I also reviewed external records from Inpatient notes admission in July for spinal stenosis surgery with lumbar laminectomy Outpatient notes urology office visits for urinary retention, benign prostatic hypertrophy. I discussed their care with Admitting team hospitalist. Consideration for escalation of care with: Admission/observation due to hypoxia.. The patient will be Admitted. The patient requires hospitalization due to hypoxia that needs further evaluation The patient needs Med/surg + tele level of care and not appropriate for a lower acuity location of care due to cardiac monitoring, vital sign monitoring frequently, oxygen management, need for IV medications Patient is in agreement with this plan. Medications cefTRIAXone (Rocephin) 1,000 mg in sodium chloride 0.9 % 50 mL IVPB Mini-Bag Plus (has no administration in time range) REVAL: CRITICAL CARE TIME Total Critical Care time was 15 minutes, excluding separately reportable procedures. There was a high probability of clinically significant/life threatening deterioration in the patient's condition which required my urgent intervention. CONSULTS: None PROCEDURES: Unless otherwise noted below, none Procedures Patients symptoms are consistent with sepsis, severe sepsis, or septic shock (If yes use .sepsiscoremeasure): no FINAL IMPRESSION 1. Hypoxia 2. Bilateral leg edema DISPOSITION Admit 10/03/2023 12:40:59 PM PATIENT REFERRED TO: No follow-up provider specified. DISCHARGE MEDICATIONS: New Prescriptions No medications on file (Comment: Please note this report has been produced using speech recognition software and may contain errors related to that system including errors in grammar, punctuation, and spelling, as well as words and phrases that may be inappropriate. If there are any questions or concerns please feel free to contact the dictating provider for clarification.) Stephen Schmitz MD (electronically signed) Emergency Medicine Provider Stephen Schmitz MD 10/03/23 1301 [facility] 10-03-2023 Telephone encounter Note S: [facility]N Antionette calling [facility] for pt w/ wheezing B: Today A: HHN reports pt w/ audible wheezing. V/s--HR 90-94, R 22 shallow/rapid, SPO2 88-90% RA, T 97.3F, diminished B lung sounds. Pt reports excessive coughing causing him to vomit. Denies shortness of breath resting or w/ exertion or fever. Pt is clammy per HHN. R: Recheck SPO2 per HHN is 88-89%. RN advises 911 for safe transport to ED d/t need for O2 administration. HHN advised pt and is agreeable. TE to provider as FYI. Reason for Disposition Oxygen level (e.g., pulse oximetry) 90% or lower Advised 911 for supplemental O2 or breathing tx Protocols used: Breathing [id number] [facility] 09-30-2023 Telephone encounter Note Message released to patient as written. Patient's further questions if applicable: Expressed understanding, no further questions Were all questions from office addressed or relayed to the patient from encounter: Yes [facility] 09-30-2023 Miscellaneous Notes Message released to patient as written. Patient's further questions if applicable: Expressed understanding, no further questions Were all questions from office addressed or relayed to the patient from encounter: Yes LVM with surgery d/t/l and instructions Doctor: Dr. Marcos PAT (arrive 15 min early): 10/02/2023 at 11:00 AM at [facility] instructions: Please bring photo ID, insurance card, list of all current medications Surgery: 10/07/2023 Surgery arrival time: 6:30 AM at [facility] Surgery instructions: Nothing to eat after midnight. Can have clear liquids black coffee (no cream or dairy), tea, water, Sprite, apple juice, Gatorade (no reds or purples) up until arrival time. Medication instructions: Hold Aspirin, fish oil and over the counter vitamins 3 days prior to surgery OR Request for Priti PROCEDURE: Cystoscopy, transurethral resection of prostate, insertion of suprapubic tube DIAGNOSIS: BPH, urinary retention FACILITY: [facility] DETAILS: STO ANESTHESIA: GENERAL TIME REQUESTED: 2hr DATE REQUESTED: ROUTINE SURGERY ORDERS: will be Placed by Emily Marcos POST OP FOLLOW UP: Nurse visit void trial 5-7 days. First SPT change with provider 5 weeks REP REQUESTED: No SPECIAL NEEDS: no PAT: yes MEDICAL CLEARANCE: No documented in this encounter [facility] 09-30-2023 Telephone encounter Note LVM with surgery d/t/l and instructions Doctor: Dr. Marcos PAT (arrive 15 min early): 10/02/2023 at 11:00 AM at [facility] instructions: Please bring photo ID, insurance card, list of all current medications Surgery: 10/07/2023 Surgery arrival time: 6:30 AM at [facility] Surgery instructions: Nothing to eat after midnight. Can have clear liquids black coffee (no cream or dairy), tea, water, Sprite, apple juice, Gatorade (no reds or purples) up until arrival time. Medication instructions: Hold Aspirin, fish oil and over the counter vitamins 3 days prior to surgery [facility] 09-29-2023 Telephone encounter Note OR Request for Priti PROCEDURE: Cystoscopy, transurethral resection of prostate, insertion of suprapubic tube DIAGNOSIS: BPH, urinary retention FACILITY: [facility] DETAILS: STO ANESTHESIA: GENERAL TIME REQUESTED: 2hr DATE REQUESTED: ROUTINE SURGERY ORDERS: will be Placed by Emily Marcos POST OP FOLLOW UP: Nurse visit void trial 5-7 days. First SPT change with provider 5 weeks REP REQUESTED: No SPECIAL NEEDS: no PAT: yes MEDICAL CLEARANCE: No [facility] 09-29-2023 History of Present illness Narrative Cystoscopy Procedure Note Pre-operative Diagnosis: BPH, urinary retention Post-operative Diagnosis: BPH, urinary retention Procedure Details The risks, benefits, complications, treatment options, and expected outcomes were discussed with the patient. The patient and provider concurred with the proposed plan, giving informed consent. Written consent was obtained and scanned into the chart. Cystoscopy was performed without incident. The patient was placed in the supine position, prepped with Betadine, and draped in the usual sterile fashion. Lidocaine jelly was instilled into the urethra to effect local anesthesia. The sheathed digital flexible cystoscope was passed into the bladder without incident Findings: External genitalia: uncircumcised, balanitis, orthotopic meatus Urethra: penile urethra normal, bulbar urethra normal Prostate: significant enlargement. significant degree of obstruction to bladder outlet, large intravesical median lobe Bladder: No tumors, diverticulae, stones, or mucosal abnormalities were seen Ureteral orifices: Normal position and effluxing clear urine. Specimens: urine culture Complications: None. Patient tolerated the procedure well Plan: Discussed urinary retention with pt, , son Likely multifactorial (back/nerve related as well as obstructive from significantly enlarged prostate) Recommend starting finasteride, continuing alfuzosin Will plan TURP and SPT insertion May not be able to void after surgery, but at least would have SPT rather than urethral catheter Also given plugs to use today Ok to go camping New 16 fr coude catheter placed 20 ml in balloon Showed patient how to cap catheter as well Sana Marcos DO [facility] [address], [address] [place] [address] Office: Fax: Pt states he tolerates betadine prep well. UROJET 6 ML urethra [facility] [id number] LOT # [id number] EXPIRES 12/14 ADMIN BY Priti Pt tolerated well documented in this encounter [facility] 09-29-2023 Instructions Sana Marcos DO - 09/29/2023 9:20 AM EDT Images from the original note were not included. Transurethral Resection of the Prostate (TURP) What is Benign Prostatic Hyperplasia (BPH)? When the prostate becomes enlarged, it can press on the urethra and make it difficult to urinate. Symptoms of BPH include a weak urinary stream, difficulty emptying your bladder, frequent urinary tract infections, bleeding from the prostate, bladder stones, getting up a night to urinate and bladder control issues. If your symptoms have not improved with home treatment or medications, your doctor may recommend surgery. Men who have severe symptoms often report greatly improved quality of life after surgery. What is a TURP? A TURP is a surgery to remove part of the prostate gland when it becomes enlarged. If you have BPH, a TURP can help you urinate more easily. How is it performed? A resectoscope is inserted into the end of the penis and up through the urethra. This scope is then used to remove the portion of the prostate that is causing a blockage, either by directly cutting it away or burning it away with a laser. The entire procedure takes approximately 1-2 hours. How long will I be in the hospital? This is an outpatient procedure, so you may be able to go home the same day as the surgery however most people spend one night in the hospital What are the possible complications of TURP? All surgeries carry the risk of bleeding, infection, blood clots, breathing problems, or heart attack while under anesthesia. In addition, a TURP can cause retrograde ejaculation, loss of fertility, uretheral stricture, and in very rare instances, incontinence. About 2% of men may need a repeat procedure within 3 years. Before Surgery: - A packet of information will be sent to you. It contains helpful information, details about how to prepare for surgery, and where to arrive on the day of surgery. Maps and local hotel information are sent to persons from out of town. If you have questions or have not received this information, please call our office at . - Most patients having surgery will need a physical completed to clear them medically for surgery. Pre-operative testing is completed approx. 1-2 weeks before your planned surgery. These tests will be done either at your pre-operative day at [facility], [facility], or with your regular doctor. - Some patients may require additional testing such as a stress test or cardiac clearance. - At the time of your pre-operative visit the following tests may be completed: Blood work, an EKG, and/ or a Chest X-ray - The day before your surgery you will need to call the surgical scheduling office to confirm your arrival time. - Do NOT eat or drink anything after midnight the night before your surgery. Medications: - Your information packet will contain a list of medications that need to be stopped before surgery. - Do not take Aspirin, Motrin or Ibuprofen for 2 weeks before surgery. - Stop taking all herbal remedies 2 weeks before your surgery. - Please make certain that we know if you take medication that affected bleeding or is a blood thinner. Examples of these include Coumadin, Warfarin or Plavix. A safe plan will need to be made about how and when you take this medication near the time of your surgery. The Day of Surgery - Please report to the designated area at your confirmed arrival time. - Before you are taken to the operating room, you will change into a gown and have an IV started. - An anesthesiologist will come speak with you about the surgery and answer any questions that you may have. - Your family may stay with you in the pre-op area until you are taken to the operating room. Home Going Instructions: Lopez Catheter: You will go home with a Lopez catheter in place for 3-10 days. The catheter helps keep your bladder decompressed so that the prostate can heal. It is normal to have blood in the urine right after surgery. Drink plenty of fluids to flush this through. The blood should clear up within a week, but in some instances may persist for 1-2 months after surgery. Activity: You are encouraged to walk every day, increasing the distance each day. You may go up and down steps, but please rest when you are tired. - Do NOT drive for 1-2 weeks after surgery or until you are not taking pain medications. You may ride in a car or plane. Be sure to get up and walk every 1-2 hours when traveling long distances. - Avoid strenuous activity for 2-4 weeks after surgery (running, jumping, lifting more than 10 lbs.) Diet and Fluid Intake: Eating a well-balanced diet is important. If you were on a specific diet before your surgery, you should return to that diet. Otherwise, there are no diet restrictions after surgery. Do NOT drink alcoholic beverages while taking pain medications. Drink at least 8 glasses of fluid per day, preferably water. Bowel Management: Constipation sometimes occurs after surgery, especially when taking pain medication. Eating a well-balanced diet and maintaining a good fluid intake are often all that is necessary to return to you pre-surgical bowel regimen. It is important not to strain excessively when having a bowel movement for the first several weeks following your surgery. A stool softener such as Colace may be helpful. You can purchase stool softeners without a prescription at your local drug store. If a stool softener is not enough to relieve your constipation, you may try taking Milk of Magnesia. You may use over the counter medicine, such a Gas-X, if you experience gas pains after surgery. Showering: You may shower when you get home from the hospital. Pain Medications: Your doctor may prescribe the appropriate pain medication for you. Take these pills only as directed and only if you need them. If you are experiencing mild discomfort, you may take Tylenol or Ibuprofen. NEVER mix alcohol with prescription pain medications. Pain medication may make you drowsy. Do not take pain medication when doing any activity that requires coordination, such as driving. Infection: Report the following warning signs of infection to your doctor immediately: A temperature of 101 degrees or greater Increased redness, swelling or drainage at the incision site Sudden onset of increased pain or tenderness or warmth around the incision Foul odor from the incision site. Miscellaneous It is normal for you to have minor discomfort after your surgery. However, if there are any significant changes in your condition--such as shortness of breath, difficulty breathing, or pain or uneven swelling in your legs--please go to the Emergency Room. Return to Work: If you work in an office and are not lifting or doing strenuous activity, you may return to work when comfortable. If your work involves strenuous activity, you may need more time before returning to work. If necessary, our office can provide a letter stating the date that you may return to work. Follow-up Appointments Follow-up appointments will be scheduled by our office If you have any questions, please call . [facility]- UROLOGY CYSTOSCOPY INSTRUCTIONS You are scheduled for a cystoscopy on . The cystoscopy will be performed in the office with local medication, but you will be awake. You may drive yourself to and from your appointment. When you have a urinary problem, your doctor may use a cystoscope to look inside your bladder and urethra. The cystoscope is like a tiny camera that allows the doctor to look at the inside of your bladder, remove stents, or place catheters while you are in the office. Your doctor may recommend cystoscopy for any of the following conditions: frequency UTI s, blood in your urine, loss of bladder control (incontinence), unusual cells found in your urine, painful urination or pelvic pain, urinary blockage or stone in the urinary tract, or a unusual growth, polyp or tumor in the urinary tract. You may be asked to give a urine sample before the test to check for infection or to look at your bladder cells. During the cystoscopy, you will be laying on the examination table with a sterile drape over your lower body. All clothing must be removed from the waist down. For females, your feet will be in stirrups, similar to when you have a pelvic exam. A nurse or the physician will clean around the area around your urethral opening and apply local anesthetic as needed. The cystoscope, which is about the diameter of a pencil or smaller, will be gently inserted into your urethra. Sterile water will slow through the cystoscope into your bladder, slowly filling it so that the doctor can more easily visualize the inside of your bladder. You may feel some discomfort and the urge to urinate. In most cases, the entire examination, including preparation takes about 15 to 20 minutes. After the examination: You may have a mild burning feeling when you urinate. You may see small amounts of blood in your urine for the first day after the procedure. To relieve discomfort, increase your fluid intake for the first 1-2 days. Your doctor may give you an antibiotic to take for 1-2 days to prevent infection. You may resume a normal diet and shower/ bath. Call your doctor if you notices: A fever over 101 degrees. Excessive blood in your urine, or passing blood clots. Pain in your bladder. If you cannot urinate or feel that you are not emptying your bladder If you have questions, please contact our office at . 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 Most recent CBC showed improved hemoglobin at 11. Continue ferrous sulfate every other day and we will plan on checking hemoglobin in 1 month. If back to baseline-discontinue ferrous sulfate [facility] 09-11-2023 Evaluation + Plan note Associated Problem(s): Subacute cough Previously resolved with stopping lisinopril and switching to valsartan 40 mg. Patient reports cough returning when valsartan was increased to 80 mg while he was hospitalized. Chest x-ray recently unremarkable. 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 Most recent CBC showed improved hemoglobin at 11. Continue ferrous sulfate every other day and we will plan on checking hemoglobin in 1 month. If back to baseline-discontinue ferrous sulfate Associated Problem(s): Subacute cough Previously resolved with stopping lisinopril and switching to valsartan 40 mg. Patient reports cough returning when valsartan was increased to 80 mg while he was hospitalized. Chest x-ray recently unremarkable. Will decrease valsartan to 40 mg daily and follow-up in about 1 month Associated Problem(s): Chronic rhinitis Flonase 2 sprays each nostril daily. Stop OTC decongestant Associated Problem(s): Urinary retention Continue follow-up with urology. Stop otc decongestant Associated Problem(s): HTN (hypertension) Blood pressure is good 104/67. I think that the valsartan 80 mg may be contributing to his cough, will decrease to 40 mg daily and get home blood pressure readings from nurse visits. Associated Problem(s): Constipation Continue Colace daily as needed for constipation. documented in this encounter [facility] 09-11-2023 Evaluation + Plan note Associated Problem(s): Chronic rhinitis Flonase 2 sprays each nostril daily. Stop OTC decongestant [facility] 09-11-2023 Evaluation + Plan note Associated Problem(s): Urinary retention Continue follow-up with urology. Stop otc decongestant [facility] 09-11-2023 Evaluation + Plan note Associated Problem(s): HTN (hypertension) Blood pressure is good 104/67. I think that the valsartan 80 mg may be contributing to his cough, will decrease to 40 mg daily and get home blood pressure readings from nurse visits. [facility] 09-11-2023 Evaluation + Plan note Associated Problem(s): Constipation Continue Colace daily as needed for constipation. [facility] 09-11-2023 History of Present illness Narrative Patient was identified by name and Date of . Images from the original note were not included. 09/11/2023 Ciro Sales (: 1935) is a 88 y.o. male , Established patient, here for evaluation of the following chief complaint(s): Hypertension and Cough ASSESSMENT/PLAN: 1. Essential hypertension, benign - valsartan (Diovan) 40 MG tablet; Take 1 tablet (40 mg) by mouth daily., Starting Fri09/11/2023, Until Fri12/10/2023, Normal 2. Drug-induced constipation Assessment & Plan: Continue Colace daily as needed for constipation. Orders: - docusate sodium (Colace) 100 MG capsule; Take 1 capsule (100 mg) by mouth Daily as needed for constipation., Starting Fri09/11/2023, Until Fri03/09/2024 at 2359, Normal 3. Toenail fungus - ciclopirox (Loprox) 0.77 % cream; Apply topically 2 times daily x4 weeks to affected toenails, Normal 4. Sinus congestion - fluticasone (Flonase) 50 MCG/ACT nasal spray; Administer 2 sprays into each nostril daily. Shake gently. Before first use, prime pump. After use, clean tip and replace cap., Starting Alyce 09/11/2023, Until Fri09/10/2024, Normal 5. Primary hypertension Assessment & Plan: Blood pressure is good 104/67. I think that the valsartan 80 mg may be contributing to his cough, will decrease to 40 mg daily and get home blood pressure readings from nurse visits. 6. Urinary retention Assessment & Plan: Continue follow-up with urology. Stop otc decongestant 7. Chronic rhinitis Assessment & Plan: Flonase 2 sprays each nostril daily. Stop OTC decongestant 8. Subacute cough Assessment & Plan: Previously resolved with stopping lisinopril and switching to valsartan 40 mg. Patient reports cough returning when valsartan was increased to 80 mg while he was hospitalized. Chest x-ray recently unremarkable. Will decrease valsartan to 40 mg daily and follow-up in about 1 month 9. 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 Most recent CBC showed improved hemoglobin at 11. Continue ferrous sulfate every other day and we will plan on checking hemoglobin in 1 month. If back to baseline-discontinue ferrous sulfate Follow up for with primary care provider as scheduled. SUBJECTIVE/OBJECTIVE: ALFREDA - Ciro Sales (: 1935) is a 88 y.o. male , Established patient, here for the evaluation of the following chief complaint(s): Hypertension and Cough Presents with today. Presents for follow-up hypertension and continued dry nonproductive cough. Reports dry cough started after his valsartan was increased from 40 to 80 mg when he was in the hospital. Previously he was on lisinopril and had a dry cough that resolved when we switched him over to valsartan several months ago. His blood pressure was well-controlled on 40 mg previously. Denies any fever chills any increased shortness of breath or chest pain. Continues to have some sinus congestion-reports that he has been taking Claritin aolr-yco-dssvsyg and also appears to have been taking Sudafed. Advised patient to stop the Sudafed as this could be contributing to his urinary retention. He is still with a urinary catheter since after back surgery after 2 attempts to remove. He is scheduled for cystoscopy on September 28 for further evaluation. He was also started on alfuzosin by urology. He reports intermittent constipation secondary to iron replacement therapy. Last hemoglobin was 11 which was improving. Patient did require blood transfusions postop. States since his back surgery he has had no back pain and no leg pain. Prior to Admission medications Medication Sig Start Date End Date Taking? Authorizing Provider ASCORBIC ACID PO Take by mouth. Yes Historical Provider, calcium carbonate (Os-Mariana) 1250 (500 Ca) MG tablet Take by mouth daily. Yes Historical Provider, CHOLECALCIFEROL PO Take by mouth. Yes Historical Provider, docusate sodium (Colace) 100 MG capsule Take 1 capsule (100 mg) by mouth Daily as needed for constipation. 08/21/23 09/20/23 Yes KALLIE Carter CNP famotidine (Pepcid) 20 MG tablet Take by mouth. Yes Historical Provider, Ferrous Sulfate Dried (FERROUS SULFATE CR PO) Take by mouth. Yes Historical Provider, Loratadine (CLARITIN PO) Take by mouth daily. Yes Historical Provider, valsartan (Diovan) 80 MG tablet Take 80 mg by mouth in the morning. 08/17/23 Yes Historical Provider, alfuzosin ER (Uroxatral) 10 MG 24 hr tablet Take 1 tablet (10 mg) by mouth daily. Do not crush, chew, or split. Patient not taking: Reported on 09/11/2023 09/03/23 12/02/23 KALLIE Bowles CNP Review of Systems Constitutional: Positive for fatigue (Improving). Negative for activity change, chills and fever. HENT: Positive for congestion, rhinorrhea and sinus pressure. Negative for sinus pain, sore throat and trouble swallowing. Respiratory: Positive for cough. Negative for chest tightness, shortness of breath and wheezing. Cardiovascular: Negative. Gastrointestinal: Positive for constipation. Negative for abdominal pain, nausea and vomiting. Genitourinary: Urinary catheter Musculoskeletal: Negative. Neurological: Negative. Vitals: 09/11/23 1027 09/11/23 1106 BP: (!) 142/76 104/67 Pulse: 103 101 Resp: 24 Temp: 36.4 C (97.6 F) TempSrc: Infrared SpO2: 94% Weight: 208 lb 9.6 oz (94.6 kg) Physical Exam Constitutional: General: He is not in acute distress. Appearance: Normal appearance. He is not ill-appearing. HENT: Head: Normocephalic and atraumatic. Comments: Hard of hearing Nose: Congestion present. Mouth/Throat: Mouth: Mucous membranes are moist. Pharynx: Oropharynx is clear. No posterior oropharyngeal erythema. Eyes: Conjunctiva/sclera: Conjunctivae normal. Cardiovascular: Rate and Rhythm: Normal rate and regular rhythm. Pulses: Normal pulses. Heart sounds: Normal heart sounds. Pulmonary: Effort: Pulmonary effort is normal. Breath sounds: Normal breath sounds. Abdominal: General: Bowel sounds are normal. Palpations: Abdomen is soft. Tenderness: There is no abdominal tenderness. Genitourinary: Comments: Urinary catheter to Lopez bag Musculoskeletal: Comments: Gait steady walking with cane Lymphadenopathy: Cervical: No cervical adenopathy. Neurological: Mental Status: He is alert and oriented to person, place, and time. An electronic signature was used to authenticate this note. KALLIE Pacheco CNP 09/11/2023 5:36 PM documented in this encounter [facility] 09-11-2023 Instructions KALLIE Carter CNP - 09/11/2023 10:20 AM EDT Fluticasone nasal spray take it daily- IT IS MORE EFFECTIVE AFTER YOU HAVE USED IT CONSISTENTLY FOR AT LEAST 4 WEEKS. documented in this encounter [facility] 09-08-2023 Telephone encounter Note Pt called office to see if sooner appt would be available. Rescheduled appt for first available in any location 09/29/[address] Marcos. [facility] 09-08-2023 Miscellaneous Notes Pt called office to see if sooner appt would be available. Rescheduled appt for first available in any location 09/29/[address] Marcos. documented in this encounter [facility] 09-03-2023 History of Present illness Narrative Images from the original note were not included. Nona Collins CNP, KALLIE 09/03/2023 at 10:04 AM Urology Office Visit [facility] UROLOGY [address] [facility] [place] [address] [facility] [address] Dept: [phone] Dept Loc: [phone] PATIENT NAME: Ciro Sales DATE OF : 1935 REFERRING PROVIDER: No ref. provider found PCP: Hermann Damian MD TODAY'S DATE: 09/03/2023 CHIEF COMPLAINT: Chief Complaint Patient presents with Other VT Impression/Plan: Diagnoses and all orders for this visit: Urinary retention Benign prostatic hyperplasia with urinary retention - alfuzosin ER (Uroxatral) 10 MG 24 hr tablet; Take 1 tablet (10 mg) by mouth daily. Do not crush, chew, or split. Patient unable to void with lopez catheter removal today. Tamsulosin changed to Alfuzosin due to drowsiness. Rx sent. Discussed chronic lopez versus SPT versus ISC. Plan to replace lopez catheter today due to patient being unable to urinate. Discussed cystoscopy/TRUS for further evaluation, also discussed the possibility that the urinary retention could be related to recent spine surgery. Will follow up for cystoscopy/TRUS. Patient will also need catheter changes on a nursing schedule. Follow Up: Follow up if symptoms worsen or fail to improve. Nona Collins, 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, [employer] [facility] Urology Subjective: Mr. Sales is a 88 y.o. male who presents to the office regarding urinary retention. Records have been reviewed. HPI Patient was seen on 08/02/2023 on consult for urinary retention after a spinal injury. Was retaining 1L urine. 08/19/2023 patient had voiding trial, which he was unable to pass. 16 F coude was replaced and patient was instructed to take Tamsulosin 0.4 mg twice daily. Patient presents today for second voiding trial. Denies catheter malfunction, hematuria, fever, chills. Patient presents today for lopez removal and trial of voiding. Review of Systems Constitutional: Negative for chills and fever. Genitourinary: Positive for difficulty urinating. Negative for dysuria, flank pain, frequency, hematuria, testicular pain and urgency. Social History Social History Tobacco Use Smoking status: Never Smokeless tobacco: Never Vaping Use Vaping Use: Never used Substance Use Topics Alcohol use: Yes Comment: 3-4 per year Drug use: No Past Medical History: Past Medical History: Diagnosis Date Acute deep vein thrombosis (DVT) of popliteal vein of left lower extremity (HCC) 11/18/2022 11/04/2022. xarelto x 3 months Arthritis Cancer (CMS/HCC) (HCC) BSC of nose History of elevated PSA Hyperlipidemia Hypertension Poison gt 11/22/2020 Umbilical hernia without obstruction or gangrene SCHEDULED FOR THE SURGERY ON 05/28 Viral URI with cough 04/11/2022 Past Surgical History: Past Surgical History: Procedure Laterality Date CATARACT EXTRACTION Right COLONOSCOPY HEMORRHOID SURGERY 1999 [facility] HERNIA REPAIR Right inguinal LAMINECTOMY 07/31/2023 L2, L3, L4, L5 laminectomy L4-L5 fusion NOSE SURGERY A KID UMBILICAL HERNIA REPAIR 05/28/2019 Medications Current Outpatient Medications Medication Instructions alfuzosin ER (UROXATRAL) 10 mg, Oral, Daily, Do not crush, chew, or split. ASCORBIC ACID PO Oral calcium carbonate (Os-Mariana) 1250 (500 Ca) MG tablet Oral, Daily CHOLECALCIFEROL PO Oral docusate sodium (COLACE) 100 mg, Oral, Daily PRN famotidine (Pepcid) 20 MG tablet Oral Ferrous Sulfate Dried (FERROUS SULFATE CR PO) Oral Loratadine (CLARITIN PO) Oral, Daily valsartan (DIOVAN) 80 mg, Oral, Daily Vitals: Ht 5' 10 (1.778 m) Wt 207 lb (93.9 kg) BMI 29.70 kg/m Physical Exam Constitutional: Appearance: Normal appearance. Abdominal: Palpations: Abdomen is soft. Genitourinary: Comments: Lopez catheter in place Neurological: Mental Status: He is alert. Psychiatric: Mood and Affect: Mood normal. Behavior: Behavior normal. Labs: HEMOGLOBIN Date Value Ref Range Status 08/21/2023 11.3 (L) 13.2 - 17.1 g/dL Final 04/03/2023 14.1 13.2 - 17.1 g/dL Final 11/04/2022 14.2 13.2 - 17.1 g/dL Final Hemoglobin Date Value Ref Range Status 08/05/2023 10.6 (L) 13.0 - 18.0 g/dL Final 08/04/2023 9.9 (L) 13.0 - 18.0 g/dL Final 08/03/2023 9.7 (L) 13.0 - 18.0 g/dL Final HEMATOCRIT Date Value Ref Range Status 08/21/2023 35.7 (L) 38.5 - 50.0 % Final 04/03/2023 41.2 38.5 - 50.0 % Final 11/04/2022 41.3 38.5 - 50.0 % Final Hematocrit Date Value Ref Range Status 08/05/2023 32.7 (L) 40.0 - 52.0 % Final 08/04/2023 31.1 (L) 40.0 - 52.0 % Final 08/03/2023 30.8 (L) 40.0 - 52.0 % Final PSA Total Date Value Ref Range Status 04/12/2021 10.666 (A) <4.000 ng/mL Final Comment: Testing performed on the Ortho [facility] 5600 using an immunometric methodology. Results obtained by different methods should not be used interchangeably. 04/07/2019 12.805 (A) <4.000 ng/mL Final Comment: Testing performed on the Ortho [facility] 5600 using an immunometric methodology. Results obtained by different methods should not be used interchangeably. No results found for: COLORU, CLARITYU, GLUCOSEUR, BILIRUBINUR, KETONESU, SPECGRAV, BLOODUR, PHUR, PROTUR, UROBILINOGEN, LEUKOCYTESUR, NITRITE Radiology Review: === 07/31/23 === US RENAL COMPLETE - Impression - Normal sonographic appearance of the kidneys and bladder. Minimally increased echogenicity of the right renal cortex. This is a nonspecific finding but can be seen in the setting of medical renal disease. Tiny bilateral renal cysts. Report Dictated on Electronically Signed By: Franco Knott MD Electronically Signed Date/Time: 08/03/2023 9:00 AM EDT Procedure: Bladder filled with 225 mL sterile water and Lopez removed. The patient was unable to void. 16 F coude lopez catheter replaced. See nursing note for details. An electronic signature was used to authenticate this note. Please note that portions of this chart were dictated using [employer] voice recognition software. It is possible that typos and/or omissions and/or substitutions of words and/or phrases may exist, which may alter the intended meaning of the dictating provider. On this date 09/03/2023 I have spent 30 minutes reviewing previous notes, test results and discussing the diagnosis and importance of compliance with the treatment plan as well as documenting on the day of the visit. Pt presents for Voiding Trial Instilled 250 CC Sterile Water into Urinary Bladder Removed # 16 Fr coude catheter after deflating 10 cc balloon Pt was unable to void. Site prepped with 3 povidone-iodine swabs prior to new catheter insertion. # 16 Fr coude catheter placed, inflated 10 cc balloon, rec'd urine return. Pt tolerated well. Leg bag placed. UROJET 6 ML [facility] [id number] LOT # [id number] EXPIRES 11/2025 Administered by Chad Burgos RN Pt tolerated well documented in this encounter [facility] 08-28-2023 Telephone encounter Note Pt call office for appt information. Pt is scheduled 09/03/23 with JOSEFINA for VT. [facility] 08-28-2023 Miscellaneous Notes Pt call office for appt information. Pt is scheduled 09/03/23 with JOSEFINA for VT. documented in this encounter [facility] 08-21-2023 Evaluation + Plan note Associated Problem(s): Anemia Anemia secondary to blood loss after surgery, at discharge hemoglobin was stable, no signs of active bleeding. Check CBC. Continue ferrous sulfate every other day. [facility] 08-21-2023 Miscellaneous Notes Associated Problem(s): Anemia Anemia secondary to blood loss after surgery, at discharge hemoglobin was stable, no signs of active bleeding. Check CBC. Continue ferrous sulfate every other day. Associated Problem(s): Acute bacterial sinusitis Will treat with antibiotics for bacterial sinusitis due to severity of symptoms and length of illness >7 days, not improving. Associated Problem(s): Spinal stenosis Status post L2, L3, L4, L5 laminectomy with L4-L5 fusion per Dr. Young. Patient reports improved symptoms and no pain, no numbness or tingling in extremities. Associated Problem(s): Urinary retention Continue indwelling catheter, Flomax twice daily as directed by urology and follow-up with urology as scheduled Associated Problem(s): Bilateral lower extremity edema Minimal edema. Continue current medications Associated Problem(s): Post-nasal drainage Significant postnasal drainage. Continue loratadine antihistamine 10 mg daily, will treat for suspected sinusitis. Close follow-up in 2 weeks. documented in this encounter [facility] 08-21-2023 Evaluation + Plan note Associated Problem(s): Acute bacterial sinusitis Will treat with antibiotics for bacterial sinusitis due to severity of symptoms and length of illness >7 days, not improving. [facility] 08-21-2023 Evaluation + Plan note Associated Problem(s): Spinal stenosis Status post L2, L3, L4, L5 laminectomy with L4-L5 fusion per Dr. Young. Patient reports improved symptoms and no pain, no numbness or tingling in extremities. [facility] 08-21-2023 Evaluation + Plan note Associated Problem(s): Urinary retention Continue indwelling catheter, Flomax twice daily as directed by urology and follow-up with urology as scheduled [facility] 08-21-2023 Evaluation + Plan note Associated Problem(s): Bilateral lower extremity edema Minimal edema. Continue current medications [facility] 08-21-2023 Evaluation + Plan note Associated Problem(s): Post-nasal drainage Significant postnasal drainage. Continue loratadine antihistamine 10 mg daily, will treat for suspected sinusitis. Close follow-up in 2 weeks. [facility] 08-21-2023 History of Present illness Narrative Patient was identified by name and Date of . Images from the original note were not included. [address] [address] Post-Discharge Hospital Follow Up Date of Hospital Admission: 07/31/23 Date of Hospital Discharge: 08/05/23 Readmission Risk Score: Predictive Model Details 5% Factor Value Risk of Hospital Admission or ED Visit Model Is in Relationship Yes Number of Hospitalizations 2 Has Chronic Kidney Disease Yes Has Medicare Yes Has CVD Yes Has PCP Yes ASSESSMENT/PLAN 1. Spinal stenosis of lumbosacral region Assessment & Plan: Status post L2, L3, L4, L5 laminectomy with L4-L5 fusion per Dr. Young. Patient reports improved symptoms and no pain, no numbness or tingling in extremities. 2. Urinary retention Assessment & Plan: Continue indwelling catheter, Flomax twice daily as directed by urology and follow-up with urology as scheduled 3. Anemia, unspecified type Assessment & Plan: Anemia secondary to blood loss after surgery, at discharge hemoglobin was stable, no signs of active bleeding. Check CBC. Continue ferrous sulfate every other day. Orders: - CBC auto differential 4. Acute bacterial sinusitis Assessment & Plan: Will treat with antibiotics for bacterial sinusitis due to severity of symptoms and length of illness >7 days, not improving. Orders: - amoxicillin-clavulanate (Augmentin) 875-125 MG tablet; Take 1 tablet by mouth 2 times daily for 7 days., Starting Alyce 08/21/2023, Until Alyce 08/28/2023, Normal 5. Post-nasal drainage Assessment & Plan: Significant postnasal drainage. Continue loratadine antihistamine 10 mg daily, will treat for suspected sinusitis. Close follow-up in 2 weeks. 6. Bilateral lower extremity edema Assessment & Plan: Minimal edema. Continue current medications Follow up for with primary care provider as scheduled. Gretchen Cabrera APRN - JERZY 08/21/23 10:23 AM SUBJECTIVE HPI Inpatient course: Discharge summary reviewed HOSPITAL COURSE: The patient underwent L2, L3, L4, L5 laminectomy L4-L5 fusion on the day of admission. Post-operatively, the patient was transferred to the PACU in stable condition and then to [facility]. They received 24 hours of prophylactic IV antibiotics. DVT prophylaxis included SCDs and early ambulation. Diet was advanced, patient was ambulated and able to urinate, and pain was reasonably controlled. Pt had urinary retention and lopez was replaced, urology consulted, recommended OP void trial. The patient progressed well throughout the hospitalization and was deemed stable for discharge to SNF on the above listed date. SIGNIFICANT DIAGNOSTIC STUDIES: CBC, BMP, PT/INR, renal US CONSULTANTS: Internal medicine Urology PT/OT RECOMMENDED NEXT STEPS: Follow up with Dr Young and PCP Follow up with Urology OP for void trial Interval History He got home for [facility] 3 days ago. [facility] with PT/OT to come out to house tomorrow to start services. Has walker at home. Reports his back is good, is having some constipation over the past few days, LBM Friday-usually goes daily. He was started on iron while in hospital. His last hemoglobin was 9.8 on 08/11/2023. Baseline was >14 prior to surgery. Appetite is decreased, . Is having sinus congestion. Nausea this morning. Sinus pressure- states it's been an issue for a couple weeks now. Cough intermittent. No fever or chills. Had urinary retention after his back surgery and had a indwelling catheter placed. He failed a voiding trial and had the catheter replaced. He has another voiding trial in 2 weeks with urology. He was started on flomax twice daily. I have performed a medication reconciliation during this visit and have reconciled the medications patient is taking as of now against medications ordered at time of hospital discharge. Will be have pt/ot and nurse at home through [facility]. Current Outpatient Medications: ASCORBIC ACID PO, Take by mouth., Disp: , Rfl: calcium carbonate (Os-Mariana) 1250 (500 Ca) MG tablet, Take by mouth daily., Disp: , Rfl: CHOLECALCIFEROL PO, Take by mouth., Disp: , Rfl: famotidine (Pepcid) 20 MG tablet, Take by mouth., Disp: , Rfl: Ferrous Sulfate Dried (FERROUS SULFATE CR PO), Take by mouth., Disp: , Rfl: Loratadine (CLARITIN PO), Take by mouth daily., Disp: , Rfl: tamsulosin (Flomax) 0.4 MG 24 hr capsule, Take 1 capsule (0.4 mg) by mouth 2 times daily., Disp: 180 capsule, Rfl: 3 valsartan (Diovan) 80 MG tablet, Take 80 mg by mouth in the morning., Disp: , Rfl: amoxicillin-clavulanate (Augmentin) 875-125 MG tablet, Take 1 tablet by mouth 2 times daily for 7 days., Disp: 14 tablet, Rfl: 0 docusate sodium (Colace) 100 MG capsule, Take 1 capsule (100 mg) by mouth Daily as needed for constipation., Disp: 30 capsule, Rfl: 0 tiZANidine (Zanaflex) 4 MG tablet, Take 1 tablet (4 mg) by mouth every 8 hours as needed for muscle spasms for up to 10 days., Disp: 30 tablet, Rfl: 0 No current facility-administered medications for this visit. Review of Systems Constitutional: Positive for activity change and fatigue. Negative for chills and fever. HENT: Positive for congestion, postnasal drip, sinus pressure and sinus pain. Negative for sore throat and trouble swallowing. Respiratory: Positive for cough. Negative for chest tightness, shortness of breath and wheezing. Cardiovascular: Positive for leg swelling (mild- at baseline). Negative for chest pain. Gastrointestinal: Positive for constipation and nausea (this am only). Negative for abdominal pain, blood in stool, diarrhea and vomiting. Genitourinary: Indwelling catheter Musculoskeletal: Negative. Neurological: Negative for dizziness and light-headedness. OBJECTIVE BP 128/66 Pulse 105 Temp 37.4 C (99.3 F) (Infrared) Resp 24 Wt 213 lb (96.6 kg) SpO2 94% BMI 30.56 kg/m Physical Exam Constitutional: General: He is not in acute distress. Appearance: Normal appearance. He is not ill-appearing. Comments: Presents in wheelchair HENT: Head: Normocephalic and atraumatic. Right Ear: Tympanic membrane normal. Left Ear: Tympanic membrane normal. Nose: Congestion and rhinorrhea present. Right Sinus: Frontal sinus tenderness present. Left Sinus: Frontal sinus tenderness present. Mouth/Throat: Mouth: Mucous membranes are moist. Pharynx: Oropharynx is clear. No posterior oropharyngeal erythema. Comments: Postnasal drainage Eyes: Conjunctiva/sclera: Conjunctivae normal. Cardiovascular: Rate and Rhythm: Normal rate and regular rhythm. Pulmonary: Effort: Pulmonary effort is normal. Breath sounds: Normal breath sounds. Comments: Intermittent cough noted Abdominal: General: Bowel sounds are normal. Palpations: Abdomen is soft. Musculoskeletal: Arms: Right lower leg: Edema (Trace ankles and foot) present. Left lower leg: Edema (Trace ankles and foot) present. Lymphadenopathy: Cervical: No cervical adenopathy. Skin: General: Skin is warm and dry. Neurological: Mental Status: He is alert and oriented to person, place, and time. documented in this encounter [facility] 08-21-2023 Instructions KALLIE Carter CNP - 08/21/2023 10:20 AM EDT Saline nasal spray 2-3 sprays every 8 hours as needed. documented in this encounter [facility] 08-19-2023 History of Present illness Narrative Images from the original note were not included. KALLIE Hartmann CNP 08/19/2023 at 10:09 AM Urology Office Visit PATIENT NAME: Ciro Sales DATE OF : 1935 TODAY'S DATE: 08/19/2023 CHIEF COMPLAINT: Chief Complaint Patient presents with voiding trial Subjective: Mr. Sales is a 88 y.o. male who presents to the office regarding urinary retention. 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 Was retaining 1L urine. Patient has been living at [facility], however, he is note sure if he has not been taking Tamsulosin 0.4 mg daily as it is not on his medication list. Today he reports that he has never had trouble with voiding in the past. Patient presents today for lopez removal and trial of voiding. Issues with indwelling catheter- uncomfortable Review of Systems Constitutional: Negative for chills and fever. Genitourinary: Positive for difficulty urinating. Negative for dysuria, flank pain, frequency, hematuria and urgency. Past Medical History: Past Medical History: Diagnosis Date Acute deep vein thrombosis (DVT) of popliteal vein of left lower extremity ([facility]) 11/18/2022 11/04/2022. xarelto x 3 months Arthritis Cancer ([facility]/HCC) ([facility]) BSC of nose History of elevated PSA Hyperlipidemia Hypertension Poison gt 11/22/2020 Umbilical hernia without obstruction or gangrene SCHEDULED FOR THE SURGERY ON 05/28 Viral URI with cough 04/11/2022 Past Surgical History: No surgery found Medications Prior to Admission medications Medication Sig Start Date End Date Taking? Authorizing Provider Loratadine (CLARITIN PO) Take by mouth daily. Historical Provider, oxyCODONE-acetaminophen (Percocet) 5-325 MG tablet Take 1 tablet by mouth every 8 hours as needed for severe pain (7-10) for up to 7 days. 08/05/23 08/12/23 Chai Ball PA-C tamsulosin (Flomax) 0.4 MG 24 hr capsule Take 1 capsule (0.4 mg) by mouth daily. 08/06/23 Chai Ball PA-C tiZANidine (Zanaflex) 4 MG tablet Take 1 tablet (4 mg) by mouth every 8 hours as needed for muscle spasms for up to 10 days. Patient not taking: Reported on 08/13/2023 08/05/23 08/15/23 Chai Ball PA-C valsartan (Diovan) 40 MG tablet Take 1 tablet by mouth in the morning. 05/26/23 Historical Provider, Vitals: BP 139/68 Pulse 89 Ht 5' 10 (1.778 m) Wt 220 lb (99.8 kg) BMI 31.57 kg/m Physical Exam Constitutional: General: He is not in acute distress. Appearance: Normal appearance. He is not ill-appearing. Abdominal: General: Abdomen is flat. Palpations: Abdomen is soft. Tenderness: There is no right CVA tenderness or left CVA tenderness. Neurological: Mental Status: He is alert and oriented to person, place, and time. Labs: HEMOGLOBIN Date Value Ref Range Status 04/03/2023 14.1 13.2 - 17.1 g/dL Final 11/04/2022 14.2 13.2 - 17.1 g/dL Final 04/19/2022 15.0 13.2 - 17.1 g/dL Final Hemoglobin Date Value Ref Range Status 08/05/2023 10.6 (L) 13.0 - 18.0 g/dL Final 08/04/2023 9.9 (L) 13.0 - 18.0 g/dL Final 08/03/2023 9.7 (L) 13.0 - 18.0 g/dL Final HEMATOCRIT Date Value Ref Range Status 04/03/2023 41.2 38.5 - 50.0 % Final 11/04/2022 41.3 38.5 - 50.0 % Final 04/19/2022 44.9 38.5 - 50.0 % Final Hematocrit Date Value Ref Range Status 08/05/2023 32.7 (L) 40.0 - 52.0 % Final 08/04/2023 31.1 (L) 40.0 - 52.0 % Final 08/03/2023 30.8 (L) 40.0 - 52.0 % Final PSA Total Date Value Ref Range Status 04/12/2021 10.666 (A) <4.000 ng/mL Final Comment: Testing performed on the Ortho [facility] 5600 using an immunometric methodology. Results obtained by different methods should not be used interchangeably. 04/07/2019 12.805 (A) <4.000 ng/mL Final Comment: Testing performed on the [employer] 5600 using an immunometric methodology. Results obtained by different methods should not be used interchangeably. Lab Results Component Value Date CREATININE 1.63 (H) 08/04/2023 Procedure: Bladder filled with 220 mL sterile water and Lopez removed. The patient was unable to void. The patient tolerated the procedure well. See nursing note for more details. - 16 Fr coude catheter placed without complications. Patient tolerated procedure well. See nursing note for more details. Impression/Plan Diagnoses and all orders for this visit: Encounter for Lopez catheter removal - Remove indwelling urinary catheter - Irrigation of Bladder; Future Urinary retention - tamsulosin (Flomax) 0.4 MG 24 hr capsule; Take 1 capsule (0.4 mg) by mouth 2 times daily. - Insert,temp indwelling blad cath,simple; Future - Here for first voiding trial - Patient unable to void after 220 ml bladder instill - 16 Fr coude catheter placed without complications. Patient tolerated procedure well. See nursing note for more details. - Patient and patient family unsure if he was getting Tamsulosin from rehab - Discussed potential causes of urinary retention with patient. He verbalized understanding - Rx for Tamsulosin 0.4 mg BID. Discussed potential side effects, patient verbalized understanding - The patient was instructed to call the office or go to the nearest ER if worsening symptoms such as fever > 101F, inability to urinate, intractable nausea or vomiting, or uncontrolled pain. The patient verbalizes understanding. - Follow up in 1-2 weeks for voiding trial Follow Up: Follow up in about 2 weeks (around 09/02/2023) for Second voiding trial. --Danica Chan CNP, KALLEI on 08/19/2023 at 10:09 AM An electronic signature was used to authenticate this note. On this date 08/19/2023 I have spent 30 minutes reviewing previous notes, test results and discussing the diagnosis and importance of compliance with the treatment plan as well as documenting on the day of the visit. Pt presents for Voiding Trial Instilled 220CC Sterile Water into Urinary Bladder Removed 16Fr silicone catheter after deflating 10cc balloon Pt was unable to void immediately Site prepped with 3 povidone-iodine swabs prior to new catheter insertion. UROJET 6 ML [facility] [id number] LOT # [id number] EXPIRES 11/2025 Administered by Emily Ireland RN Pt tolerated well 16 Fr straight catheter placed, inflated 10 cc balloon, rec'd urine return. Pt tolerated well. Overnight bag placed. Patient given leg bag and stat locks to go home documented in this encounter [facility] 08-15-2023 Note HNO ID: [id number] Author: ROYAL SY, AILYN Service: Nursing Author Type: Registered Nurse Type: Progress Notes Filed: 08/15/2023 07:12 Note Text: 2200: Patient unable to urinate post removal of indwelling cath. Page sent to hospitalist electronic page makeup system operator. Bladder scan shows 806 ml. Order received to insert indwelling cath. Sterile procedure performed. Pt tolerated well. [facility] 08-14-2023 Note HNO ID: [id number] Author: ASHELY ZAMUDIO APRN.JERZY Service: Hospital Medicine Author Type: Nurse Practitioner Type: Progress Notes Filed: 08/14/2023 10:51 Note Text: DEPARTMENT OF HOSPITAL MEDICINE PROGRESS NOTE SERVICE DATE: 08/14/2023 SERVICE TIME: 10:46 AM Hospital Medicine/Primary Attending: Pérez Cornejo MD NIGHT AND WEEKEND COVERAGE: [employer] 7a-7p Paged [phone] 7p-7a Subjective INTERVAL HPI: Seen and examined No new complaints No further diarrhea Sutures removed at follow-up appt 08/12 Voiding trial today If lopez needs replaced will start lopez teaching with patient and Insurance review due tomorrow Progressing well with PT/OT BP elevated-->asymptomatic-->valsartan increased Current Facility-Administered Medications Medication Dose Route Frequency tamsulosin 0.4 mg cap(s) (FLOMAX) 0.4 mg ORAL DAILY tiZANidine 4 mg tab(s) (ZANAFLEX) 4 mg ORAL q 8 H PRN oxyCODONE IR 5 mg tab(s) (ROXICODONE) 5 mg ORAL q 6 H PRN lidocaine 4 % 2 Patch (SALONPAS) 2 Patch TRANSDERMAL DAILY And lidocaine patch - REMOVE OTHER AT BEDTIME And lidocaine - VERIFY PATCH OTHER q 8 H cetirizine 10 mg tab(s) (ZYRTEC) 10 mg ORAL DAILY guaiFENesin-dextromethorphan 100-10 mg/5 mL 10 mL oral liquid (ROBITUSSIN DM) 10 mL ORAL q 4 H PRN cholecalciferol 5,000 Units tab(s) (VITAMIN D3) 5,000 Units ORAL DAILY calcium carbonate 1,250 mg tab(s) (OS-MARIANA 500) 1,250 mg ORAL DAILY famotidine 20 mg tab(s) (PEPCID) 20 mg ORAL DAILY ferrous sulfate 325 mg tab(s) 325 mg ORAL q 48 H ascorbic acid (vitamin C) 500 mg tab(s) (VITAMIN C) 500 mg ORAL DAILY polyethylene glycol 3350 17 g packet 17 g ORAL DAILY PRN senna-docusate 8.6-50 mg 1 tablet (SENNA-S) 1 tablet ORAL TID PRN oxymetazoline 0.05 % 2 [place] (GENASAL) 2 [place] EACH NOSTRIL BID PRN white petrolatum 41 % topical ointment (AQUAPHOR) TOPICAL PRN acetaminophen 650 mg tab(s) (TYLENOL) 650 mg ORAL q 6 H PRN [START ON 08/15/2023] valsartan 80 mg tab(s) (DIOVAN) 80 mg ORAL DAILY valsartan 40 mg tab(s) (DIOVAN) 40 mg ORAL ONCE Objective PHYSICAL EXAM: BP 178/99 Pulse 83 Temp (Src) 98.3 (Oral) Resp 14 Ht 5' 10 (1.78m) Wt 222 lb 3.6 oz (100.8kg) SpO2 91% BMI 31.89 kg/(m2). O2 Therapy: Room Air Physical Exam Performed Vitals reviewed. Constitutional: General: He is not in acute distress. Appearance: He is normal weight. He is not toxic-appearing. HENT: Head: Normocephalic and atraumatic. Nose: Nose normal. Mouth/Throat: Mouth: Mucous membranes are moist. Pharynx: Oropharynx is clear. Cardiovascular: Rate and Rhythm: Regular rhythm. Pulses: Normal pulses. Heart sounds: Normal heart sounds. Pulmonary: Effort: No respiratory distress. Breath sounds: Normal breath sounds. No stridor. No wheezing, rhonchi or rales. Abdominal: General: Bowel sounds are normal. There is no distension. Palpations: Abdomen is soft. Tenderness: There is no abdominal tenderness. Genitourinary: Comments: Lopez patent Musculoskeletal: General: Normal range of motion. Skin: General: Skin is warm and dry. Capillary Refill: Capillary refill takes less than 2 seconds. Comments: Incision site healing well. Sutures removed Neurological: Mental Status: He is alert and oriented to person, place, and time. Psychiatric: Mood and Affect: Mood normal. Lines, Drains, and Airways Drain Duration Indwelling Urinary Catheter External Facility Lopez -- days Reviewed Lopez and will discuss with nurse to discontinue. DATA: Diagnostic tests reviewed for today's visit: Most recent labs CBC, Coags, BMP, Mg, Phos Assessment/Plan Problem List Aftercare (POA: Yes) Low back pain (POA: Yes) HTN (hypertension) (POA: Yes) S/P laminectomy (POA: Yes) Urinary retention (POA: Yes) Obesity, Class I, BMI 30-34.9 (POA: Yes) Constipation (POA: Yes) Spinal stenosis (POA: Yes) Renal insufficiency (POA: Yes) HOSPITAL COURSE: Ciro Sales is a 88 year old male with PMH BCC, elevated PSA, HTN, OAB, spinal stenosis was admitted to [facility] on 07/31/2023 for lumbar laminectomy. Post-op course was complicated by urinary retention. Patient failed voiding trial and was DCd with lopez. Flomax was started and Oxybutynin was stopped. Urology appointment scheduled for 08/18 for voiding trial (remove lopez on 08/17). Post-op recs were vitamin D and Calcium. Do not lift over 10 pounds for 4 weeks. Post-op appointment was scheduled for 08/12 and sutures will be removed at that time. PT/OT recommended SNF, thus [facility] Principal Problem: Aftercare - Hospitalization Dates: 07/31/2023-08/05/2023 - Hospitalization Diagnosis: Spinal stenosis - Discharge Facility: [facility] - PT/OT Consult - Nutrition Consult - Case Management Consult for Discharge Planning - Pain Control: scheduled tylenol; PRN oxycodone/Zanalfex - DVT Prophylaxis: early ambulation - (more content not included)... [facility] 08-14-2023 Note HNO ID: [id number] Author: BECKY DAVILA RN Service: Care Management Author Type: Registered Nurse Type: Care Mgt Progress Note Filed: 08/14/2023 10:45 Note Text: CASE MANAGEMENT PROGRESS NOTE SERVICE DATE: 08/14/2023 SERVICE TIME: 10:42 AM Revisited with pt and at bedside while rounding with Shelby Zamudio CNP. Pt up in chair, no current c/o. Pt did voice concern re: discharging with lopez. AQUATICS MANAGER plan for voiding trial today and f/u with urology 08/18. Explained that if pt needs lopez- nursing will provide education on draining and mgmt to pt and . Discussed discharge plan and insurance review due 08/14. Plan for discharge 08/19 pending insurance approval. Explained to pt that he is progressing well with therapy and insurance may not cover snf until 08/19. Discussed hhc- both pt and agreeable. Will follow SIGNATURE: Becky Davila RN PATIENT NAME: Ciro Sales DATE: August 14, 2023 TIME: 10:42 AM PAGER/CONTACT #: [phone] [facility] 08-12-2023 Note HNO ID: [id number] Author: BECKY DAVILA RN Service: Care Management Author Type: Registered Nurse Type: Care Mgt Progress Note Filed: 08/12/2023 11:06 Note Text: CASE MANAGEMENT PROGRESS NOTE SERVICE DATE: 08/12/2023 SERVICE TIME: 11:03 AM Revisited with pt while on rounds with Shelby Zamudio CNP this morning. Pt s/p lumbar lami/fusion. Pt progressing well with therapy. Pt c/o ESTEVEZ, sinus pain to AQUATICS MANAGER. AQUATICS MANAGER entered orders. Pt aware insurance review due today. MANAGER VAN scheduling care conference with /daughter. Will follow. SIGNATURE: Becky Davila RN PATIENT NAME: Ciro Sales DATE: August 12, 2023 TIME: 11:03 AM PAGER/CONTACT #: [phone] [facility] 08-12-2023 Note HNO ID: [id number] Author: ASHELY ZAMUDIO APRN.CNP Service: Hospital Medicine Author Type: Nurse Practitioner Type: Progress Notes Filed: 08/12/2023 12:08 Note Text: DEPARTMENT OF HOSPITAL MEDICINE PROGRESS NOTE SERVICE DATE: 08/12/2023 SERVICE TIME: 7:57 AM Hospital Medicine/Primary Attending: Pérez Cornejo MD NIGHT AND WEEKEND COVERAGE: [employer] 7a-7p Paged [phone] 7p-7a Subjective INTERVAL HPI: Seen and examined with case operator Reports sinus headache and nasal congestion Reports chronic history this time of year Also complains of cough and sore throat Report dry skin No fevers or chills Covid/flu/RSV negative No erythema, edema or drainage noted to pharynx Progressing well with PT/OT Sutures in place without s/s infection Lopez remains patent Bowel regimen stopped due to diarrhea Current Facility-Administered Medications Medication Dose Route Frequency tamsulosin 0.4 mg cap(s) (FLOMAX) 0.4 mg ORAL DAILY tiZANidine 4 mg tab(s) (ZANAFLEX) 4 mg ORAL q 8 H PRN oxyCODONE IR 5 mg tab(s) (ROXICODONE) 5 mg ORAL q 6 H PRN lidocaine 4 % 2 Patch (SALONPAS) 2 Patch TRANSDERMAL DAILY And lidocaine patch - REMOVE OTHER AT BEDTIME And lidocaine - VERIFY PATCH OTHER q 8 H cetirizine 10 mg tab(s) (ZYRTEC) 10 mg ORAL DAILY valsartan 40 mg tab(s) (DIOVAN) 40 mg ORAL DAILY guaiFENesin-dextromethorphan 100-10 mg/5 mL 10 mL oral liquid (ROBITUSSIN DM) 10 mL ORAL q 4 H PRN acetaminophen 1,000 mg tab(s) (TYLENOL) 1,000 mg ORAL BID cholecalciferol 5,000 Units tab(s) (VITAMIN D3) 5,000 Units ORAL DAILY calcium carbonate 1,250 mg tab(s) (OS-MARIANA 500) 1,250 mg ORAL DAILY famotidine 20 mg tab(s) (PEPCID) 20 mg ORAL DAILY ferrous sulfate 325 mg tab(s) 325 mg ORAL q 48 H ascorbic acid (vitamin C) 500 mg tab(s) (VITAMIN C) 500 mg ORAL DAILY Objective PHYSICAL EXAM: BP 128/93 Pulse 81 Temp (Src) 98.6 (Oral) Resp 20 Ht 5' 10 (1.78m) Wt 222 lb 3.6 oz (100.8kg) SpO2 91% BMI 31.89 kg/(m2). O2 Therapy: Room Air Physical Exam Performed Physical Exam Vitals reviewed. Constitutional: General: He is not in acute distress. Appearance: He is normal weight. He is not toxic-appearing. HENT: Head: Normocephalic and atraumatic. Nose: Nose normal. Mouth/Throat: Mouth: Mucous membranes are moist. Pharynx: Oropharynx is clear. Cardiovascular: Rate and Rhythm: Regular rhythm. Pulses: Normal pulses. Heart sounds: Normal heart sounds. Pulmonary: Effort: No respiratory distress. Breath sounds: Normal breath sounds. No stridor. No wheezing, rhonchi or rales. Abdominal: General: Bowel sounds are normal. There is no distension. Palpations: Abdomen is soft. Tenderness: There is no abdominal tenderness. Genitourinary: Comments: Lopez patent Musculoskeletal: General: Normal range of motion. Skin: General: Skin is warm and dry. Capillary Refill: Capillary refill takes less than 2 seconds. Comments: Lumbar sutures dry and intact No drainage No erythema or edema Neurological: Mental Status: He is alert and oriented to person, place, and time. Psychiatric: Mood and Affect: Mood normal. Lines, Drains, and Airways Drain Duration Indwelling Urinary Catheter External Facility Lopez -- days Reviewed Lopez and needs to be continued: REASONS: Urinary retention or obstruction DATA: Diagnostic tests reviewed for today's visit: Most recent labs Most recent imaging CBC, Coags, BMP, Mg, Phos Recent Labs 08/11/23 0557 WBC 7.53 HB 9.8* HCT 31.1* PLT 249 NA 140 K 4.1 CHLOR 104 CO2 28 BUN 15 CREAT 1.48* GLUC 103* CA 8.6 Assessment/Plan Problem List Aftercare (POA: Yes) Low back pain (POA: Yes) HTN (hypertension) (POA: Yes) S/P laminectomy (POA: Yes) Urinary retention (POA: Yes) Obesity, Class I, BMI 30-34.9 (POA: Yes) Constipation (POA: Yes) Spinal stenosis (POA: Yes) Renal insufficiency (POA: Yes) HOSPITAL COURSE: Ciro Sales is a 88 year old male with PMH BCC, elevated PSA, HTN, OAB, spinal stenosis was admitted to [facility] on 07/31/2023 for lumbar laminectomy. Post-op course was complicated by urinary retention. Patient failed voiding trial and was DCd with lopez. Flomax was started and Oxybutynin was stopped. Urology appointment scheduled for 08/18 for voiding trial (remove lopez on 08/17). Post-op recs were vitamin D and Calcium. Do not lift over 10 pounds for 4 weeks. Post-op appointment was scheduled for 08/12 and sutures will be removed at that time. PT/OT recommended SNF, thus patient was transferred to [facility] for further services. Principal Problem: Aftercare - Hospitalization Dates: 07/31/2023-08/05/2023 - Hospitalization Diagnosis: Spinal stenosis - Discharge Facility: [facility] - PT/OT Consult - Nutrition Consult - Case Management Consult for Discharge Planning - Pain Control: scheduled tylenol; PRN oxycodone/Zanalfex - DVT Prophylaxis: fariba (more content not included)... [facility] 08-05-2023 Note HNO ID: [id number] Author: CHIQUIS DELATORRE, RN Service: Nursing Author Type: Registered Nurse Type: Progress Notes Filed: 08/05/2023 16:31 Note Text: 1515- pt arrived to EW room 108A via stretcher from [facility]. Pt alert and oriented forgetful. Bed alarm placed for safety. Non skid socks on feet. [address] 95 reviewed with pt. Skin assessment completed with another nurse. and daughter at bedside. All questions and concerns addressed by this nurse. [facility] 08-05-2023 Plan of care note Problem: Pain - Adult Goal: Verbalizes/displays adequate comfort level or baseline comfort level 08/05/2023 141 by Cierra Williamson RN Outcome: Adequate for Discharge 08/05/2023 0946 by Cierra Williamson RN Outcome: Progressing Problem: Safety - Adult Goal: Free from fall injury 08/05/2023 141 by Cierra Williamson RN Outcome: Adequate for Discharge 08/05/2023 0946 by Cierra Williamson RN Outcome: Progressing Problem: Discharge Planning Goal: Discharge to home or other facility with appropriate resources 08/05/2023 1413 by Cierra Williamson RN Outcome: Adequate for Discharge 08/05/2023 0946 by Cierra Williamson RN Outcome: Progressing Problem: Chronic Conditions and Co-morbidities Goal: Patient's chronic conditions and co-morbidity symptoms are monitored and maintained or improved 08/05/2023 141 by Cierra Williamson RN Outcome: Adequate for Discharge 08/05/2023 0946 by Cierra Williamson RN Outcome: Progressing Problem: Knowledge Deficit Goal: Patient/family/caregiver demonstrates understanding of disease process, treatment plan, medications, and discharge instructions 08/05/2023 1413 by Cierra Williamson RN Outcome: Adequate for Discharge 08/05/2023 0946 by Cierra Williamson RN Outcome: Progressing Problem: Potential for Compromised Skin Integrity Goal: Skin Integrity is Maintained or Improved 08/05/2023 141 by Cierra Williamson RN Outcome: Adequate for Discharge 08/05/2023 0946 by Cierra Williamson RN Outcome: Progressing Goal: Nutritional status is improving 08/05/2023 1413 by Cierra Williamson RN Outcome: Adequate for Discharge 08/05/2023 0946 by Cierra Williamson RN Outcome: Progressing Problem: Urinary Incontinence Goal: Perineal skin integrity is maintained or improved 08/05/2023 1413 by Cierra Williamson RN Outcome: Adequate for Discharge 08/05/2023 0946 by Cierra Williamson RN Outcome: Progressing [facility] 08-05-2023 Miscellaneous Notes Problem: Pain - Adult Goal: Verbalizes/displays adequate comfort level or baseline comfort level 08/05/2023 1413 by Cierra Williamson RN Outcome: Adequate for Discharge 08/05/2023 0946 by Cierra Williamson RN Outcome: Progressing Problem: Safety - Adult Goal: Free from fall injury 08/05/2023 1413 by Cierra Williamson RN Outcome: Adequate for Discharge 08/05/2023 0946 by Cierra Williamson RN Outcome: Progressing Problem: Discharge Planning Goal: Discharge to home or other facility with appropriate resources 08/05/2023 1413 by Cierra Williamson RN Outcome: Adequate for Discharge 08/05/2023 0946 by Cierra Williamson RN Outcome: Progressing Problem: Chronic Conditions and Co-morbidities Goal: Patient's chronic conditions and co-morbidity symptoms are monitored and maintained or improved 08/05/2023 1413 by Cierra Williamson RN Outcome: Adequate for Discharge 08/05/2023 0946 by Cierra Williamson RN Outcome: Progressing Problem: Knowledge Deficit Goal: Patient/family/caregiver demonstrates understanding of disease process, treatment plan, medications, and discharge instructions 08/05/2023 1413 by Cierra Williamson RN Outcome: Adequate for Discharge 08/05/2023 0946 by Cierra Williamson RN Outcome: Progressing Problem: Potential for Compromised Skin Integrity Goal: Skin Integrity is Maintained or Improved 08/05/2023 1413 by Cierra Williamson RN Outcome: Adequate for Discharge 08/05/2023 0946 by Cierra Williamson RN Outcome: Progressing Goal: Nutritional status is improving 08/05/2023 1413 by Cierra Williamson RN Outcome: Adequate for Discharge 08/05/2023 0946 by Cierra Williamson RN Outcome: Progressing Problem: Urinary Incontinence Goal: Perineal skin integrity is maintained or improved 08/05/2023 1413 by Cierra Williamson RN Outcome: Adequate for Discharge 08/05/2023 0946 by Cierra Williamson RN Outcome: Progressing Patient Choice Patient Name: CIRO SALES Date of : 1935 All Providers Sent Referral Name: [facility] Phone: [phone] Address: [address] [place], [place] [id number] Discharge med list, MAR and updated notes transmitted to [facility] via [facility] per TCC request. Transport arranged for 1300 today to transfer pt to [facility] rehab. RN, US, TCC, pt and [facility] notified. Pt is aware of possible copay for ambulance transport and is agreeable. Discharge order noted for [facility]. DATA ANALYST ETL DEVELOPER [facility] disposal worker aware of need to transport. Patient remains on H6 s/p decompression/fusion 07/31/2023. Reg diet noted. Lopez noted, patient to discharge with lopez per Urology. PT/OT following, recommending IPR. [facility] able to accept. Insurance auth obtained. Neuro PA-C secure message regarding discharge. TCC to assist and follow as needed. Problem: Pain - Adult Goal: Verbalizes/displays adequate comfort level or baseline comfort level 08/04/20232199 by Arti Millan RN Outcome: Progressing Problem: Safety - Adult Goal: Free from fall injury 08/04/20232199 by Arti Millan RN Outcome: Progressing Per RN, she and family members discussed transportation modes and it was determined that pt does required [facility] Completed ambulance form placed on pt chart. Approval from [facility] for patient to go to [facility]. Neuro aware, patient has lopez in place per Urology. [facility] made aware that patient will transfer tomorrow. Patient aware. TCC to assist and follow as needed. Problem: Pain - Adult Goal: Verbalizes/displays adequate comfort level or baseline comfort level Outcome: Progressing Flowsheets (Taken 08/04/2023 1104) Verbalizes/displays adequate comfort level or baseline comfort level: Encourage patient to monitor pain and request assistance Assess pain using appropriate pain scale Problem: Safety - Adult Goal: Free from fall injury Outcome: Progressing Flowsheets (Taken 08/04/2023 1104) Free from fall injury: Instruct family/caregiver on patient safety Based on caregiver fall risk screen, instruct family/caregiver to ask for assistance with transferring infant if caregiver noted to have fall risk factors Face [facility]. Await review and response regarding ability to accept. TCC notified. Images from the original note were not included. Care Management Progress Note Patient remains on H6 s/p decompression/fusion 07/31/2023. Reg diet noted. Lopez noted. PT/OT following, recommending [facility]. [facility] able to accept. TCC to assist and follow as needed. Discharge Milestones and Delays Expected Date/Time: 08/05/[address] discharge order Complete med reconciliation Case mgmt discharge readiness Clinical Stability Diagnsotic Workup Expected Discharge History Expected Date/Time Set By Reviewed At 08/05/2023 Zoë Trimble RN 08/04/2023 8:58 AM 08/02/2023 Zoë Trimble RN 08/01/2023 9:27 AM 08/02/2023 KALLIE Che CNP 07/31/2023 3:03 PM 08/02/2023 KALLIE Ceh CNP 07/31/2023 11:13 AM 08/02/2023 KALLIE Che CNP 07/31/2023 6:16 AM Length of Stay (Days): 4 GMLOS: No GMLOS Documented Care Managment Initial Assessment Date: 08/01/2023 Patient Name: Ciro Sales : 1935 Patient Information Source of Information: Patient Cognition/Language: WFL - Within Functional Limits Permission given to speak with patient self pay representative/caregiver as indicated: Yes Confirmation of Payer with patient/family: Yes Payer Name: [employer] Medicare : No Confirmation of Primary Care Physician: Confirmed PCP Name: Raz Damian Seen in last 2 years?: No Primary Caregiver: Self If assistance needed, confirmed caregiver ready, willing and able to care for patient at discharge: Yes Confirmed with: Linda Sales Living Arrangements Current Residence: House Number of Floors 1 Number of Entry Steps: 5 or more Bed/Bath Levels: Both first floor Facility: Facility Name: Plan to Return: Lives with: Spouse/significant other Support Systems: Spouse/significant other Activities of Daily Living Ambulation: Independent Bathing/Dressing: Independent Elimination/Continence/Toileting: Independent Feeding: Independent Who Assists with Activities of Daily Living: Instrumental Activities of Daily Living Prescription Coverage: Yes Pharmacy Used: [facility] Medication Management: Independent Transportation/Shopping: Independent Transportation Mode: Car Needs Assistance with Transportation at Discharge: No Meal Preparation: Independent Laundry/Cleaning: Independent Finances/Bill Paying: Independent Communication: Independent Types of Care Services/Equipment Utilized Care Services: Dialysis Type: Durable Medical Equipment: Cane, Walker Patient's Goal/Discharge Plan Patient expects to be discharged to: [facility] Discharge Planning Actions: Continue to follow Patient's Choice Rights and [employer] and Collaborative Relationships Disclosed as Indicated for Post-Acute Care: Interdisciplinary Team Engagement: PT/OT Social Work Referral for: Additional Information: Patient admitted to H6 s/p decompression/fusion 07/31/2023. Reg diet. Drain noted. PT/OT following recommending IPR. Met with pt at bedside, introduced self and explained role of TCC. Pt has insurance with RX coverage, active with PCP. Lives at home with spouse. [facility] referral to [facility]. DATA ANALYST ETL DEVELOPER tasked to make referral. TCC to assist and follow as needed. Zoë Trimble RN Updated [facility]. Await review and response regarding ability to accept. TCC notified. Referral placed to SNF- [facility]- via [facility] per TCC request. Await review and response regarding ability to accept. TCC notified. Spoke with patient and his and son at bedside, introduced self and role. Pt is hoping to go to [facility] IPR, but is agreeable to home care as a backup plan if he is safe to do so. Pt's is concerned she will not be able to help him as much as he needs if they were to go home before rehab. Pl Sql Developer following case for Discharge Needs. Problem: Pain - Adult Goal: Verbalizes/displays adequate comfort level or baseline comfort level 07/31/20232307 by Arti Millan RN Outcome: Progressing Flowsheets (Taken 07/31/20232307) Verbalizes/displays adequate comfort level or baseline comfort level: Encourage patient to monitor pain and request assistance Problem: Safety - Adult Goal: Free from fall injury 07/31/20232307 by Arti Millan RN Outcome: Progressing Flowsheets (Taken 07/31/20232307) Free from fall injury: Instruct family/caregiver on patient safety Problem: Pain - Adult Goal: Verbalizes/displays adequate comfort level or baseline comfort level Outcome: Progressing Flowsheets (Taken 07/31/20231812) Verbalizes/displays adequate comfort level or baseline comfort level: Encourage patient to monitor pain and request assistance Assess pain using appropriate pain scale Patient son updated via phone OPERATIVE NOTE Patient Name: Ciro Sales : 1935 DATE OF PROCEDURE: 07/31/2023 SURGEON: Ta Young MD CLIENT PROJECT COORDINATOR: Yuliya Diaz CNP PREOPERATIVE DIAGNOSES: Lumbar stenosis, spondylolisthesis, neurogenic claudication POSTOPERATIVE DIAGNOSES: Same PROCEDURE: L2, L3, L4, L5 laminectomy L4-L5 fusion ANESTHESIA: General ESTIMATED BLOOD LOSS: 50 INDICATION FOR PROCEDURE: Mr. Husam roque is a 88-year-old gentleman who presented with several years of progressive back pain and lower extremity pain and limited length of time he can stand the distance he can walk. MRI showed degenerative changes multiple levels with L4-L5 spondylolisthesis with severe stenosis due to facet ligamentous hypertrophy. There were similar findings at L2-L3 L3-L4 to a lesser degree. Risks and benefits of laminectomy and fusion were discussed with him, he wished to proceed. DESCRIPTION OF PROCEDURE: Patient was brought to the operative room general on trach esthesia was induced. He had spinal cord monitoring leads placed. He was turned prone on a spinal Tree table, his face chest hips arms and feet were all padded appropriately. C-arm was brought in field approximate the L3-L4 level, this is marked surgical marker and he was prepped and draped in the normal sterile fashion. After appropriate timeout identifying the patient, the level surgery type surgery point 5% Marcaine with epinephrine was instilled future incision. Skin incision was made dissection carried out to expose the laminas of L2-L3-L4 transverse processes lateral facets pars interarticularis at L4-L5 bilaterally. Level was confirmed intraoperatively via C arm. When the levels confirmed exposure complete there was thorough decortication of the transverse processes lateral facets pars interarticularis at L for L5 bilaterally. Then an O-arm scan was performed this allowed pedicle screws to be placed under live navigation at L4 and L5. The procedure to place the screws was as follows drill to make a airplane patrol pilot hole followed by pedicle finder followed by pedicle feeler followed by tap followed by pedicle feeler followed by the screw. 6.5 x 50 mm screws were placed at L4, and 6.5 x 45 mm screws were placed at L5. There is no changes to the EMG nerve conduction monitoring when the screws were placed. After the screws were placed they were all stimulated they all stimulated at an acceptable level. Then the rongeur was used to remove the spinous process of L2-L3 and L4. Pneumatic Mcgregor drill was then used to thin the laminas of L2-3 and 4 to level ligamentum flavum. Combination of 2 3 and 4 mm Kerrisons were used to remove the remaining bone the thickened leg underneath. There is extremely thickened ligamentum flavum at each level especially L4-L5 that created central canal and lateral recess stenosis. The ligamentous hypertrophy was adherent to the dorsal portion of the dura at the L4-L5 level where the stenosis was worse. Small durotomy was created during the decompression that was closed with a 5-0 silk suture and piece of muscle sewn over that. A Valsalva maneuver was performed at did not indicate any egress of CSF. To facilitate the closing of the durotomy we remove the L5 lamina so we could head of head of view and be sure that we had close the entire hole and there was not some under the L5 lamina that we could not see. For that reason the L5 laminectomy was also performed. Then rods were locked into the screws appropriately bone graft material both auto and aloe was placed for posterolateral fusion at L4-L5. The wound was autumn irrigated out 10 [place] round DAVID drain placed. Then the muscle fascia was closed with interrupted 0 Vicryl sutures followed by another layer of interrupted 2-0 Vicryl sutures followed by subcuticular 3-0 Vicryl sutures with Mastisol and Steri-Strips on the skin. Sterile dressing was placed. He was extubated taken recovery room in stable fashion. All of his spinal cord signals were the same at the end of the case compared to beginning. There is no neurosurgical resident available to assist the case, the nurse practitioner assisted to provide suction retraction assistance with opening closing allow the case to be performed safely. documented in this encounter [facility] 08-05-2023 Note Formatting of this n ote might be different from the original. Patient Choice Patient Name: CIRO SALES Date of : 1935 All Providers Sent Referral Name: [facility] Phone: [phone] Address: [address] [place] [id number] [facility] 08-05-2023 Note Formatting of this n ote might be different from the original. Patient Choice Patient Name: CIRO SALES Date of : 1935 All Providers Sent Referral Name: [facility] Phone: [phone] Address: [address] [place] [id number] [facility] 08-05-2023 Note Formatting of this n ote might be different from the original. Discharge med list, MAR and updated notes transmitted to [facility] via [facility] per TCC request. [facility] 08-05-2023 Note Formatting of this n ote might be different from the original. Discharge med list, MAR and updated notes transmitted to [facility] via [facility] per TCC request. [facility] 08-05-2023 Note Formatting of this n ote might be different from the original. Transport arranged for 1300 today to transfer pt to [facility] rehab. RN, US, TCC, pt and [facility] notified. Pt is aware of possible copay for ambulance transport and is agreeable. [facility] 08-05-2023 Note Formatting of this n ote might be different from the original. Transport arranged for 1300 today to transfer pt to [facility] rehab. RN, US, TCC, pt and [facility] notified. Pt is aware of possible copay for ambulance transport and is agreeable. [facility] 08-05-2023 History of Present illness Narrative [facility] All questions answered. Department of Neurosurgery Progress Note Chief Complaint: lumbar stenosis SUBJECTIVE: s/p lumbar decompression and fusion. He is up to the chair today. He states he has a mild frontal headache. Auth received for [facility] re[facility]. OBJECTIVE Physical BP (!) 161/90 (BP Location: Left arm, Patient Position: Lying) Pulse 91 Temp 37.1 C (98.8 F) (Oral) Resp 20 SpO2 93% NEUROLOGIC: A&O x3 [place] MCNEILL BLE 5/5 strength Sensation intact Incision C/D/I ASSESSMENT AND PLAN 88 y.o. male status post lumbar decompression and fusion post op day #5 Pt progressing as expected Activity increase to up with assist Urology recommending discharge with Lopez and schedule outpatient follow-up for voiding trial Will discharge to [facility] rehab today, patient agreeable Discharge instructions given, follow-up with Dr. Young for staple removal Spoke with Dr. Terrazas, pt will be discharged with his lopez catheter. Images from the original note were not included. PHYSICAL THERAPY [facility] Treatment Note Name/MRN: Tennille Sales ([id number]) Date of : 1935 Age: 88 y.o. [facility] A Discharge Recommendation: IP Rehab Equipment Needed: No Other: tbd Prior Level of Function ADL Assistance: Independent Ambulation Assistance: Independent Device(s) used: front wheeled walker and cane Transfer Assistance: Independent Assessment Pt demonstrated improvements in mobility this session. Pt was able to ambulate a total of approx 230 ft with FWW with Min A. Pt required verbal and manual cues for walker management during ambulation. Pt continues to have decreased safety awareness and has difficulty maintaining FWW at an appropriate distance during ambulation. Pt reported mild dizziness during ambulation. Pt is dependent for necessary hygiene post BM. Pt is still a fall risk and is unsafe to return home at this time. PT is continuing to recommend IP rehab at discharge. Subjective Pt in chair when PT entered room. Pt agreeable to therapy. States that he needs to use the restroom for a BM. Pain: low back, no rating given Medical Precautions: No active isolations Proper PPE donned/doffed in accordance with facility standards. Fall Risk: Head Fall Risk Score: 85 (High Risk) Precautions/Restrictions: Spine Precautions: No Bending, No Lifting, No Twisting Lines/Drains/Airways: PIV, lopez Overall Cognitive Status: Exceptions - Arousal/alertness: appropriate responses to stimuli - Following commands: follows one step commands with repetition - Attention span: attends with cues to redirect - Memory: decreased recall of recent events - Safety judgement: decreased awareness of need for assistance and decreased awareness of need for safety - Problem solving: assistance required to generate solutions, assistance required to implement solutions, assistance required to correct errors made, and decreased awareness of errors - Insights: decreased awareness of deficits - Initiation: requires cues for some - Sequencing: requires cues for some Overall Orientation Status: Oriented to Place, Oriented to Time, Oriented to Situation, and Oriented to Person Family/Caregiver Present: spouse and child(pam) Objective Ambulation Ambulation 1 Assistive device(s) used: front wheeled walker Assist level: Min Assist Distance (ft): 15 ft from chair to commode Quality of gait: unequal step length-shorter on R, bilat feet in ER throughout, unsteadiness, postural sway, reliance on B UE Ambulation 2 Assistive device(s) used: front wheeled walker Assist level: Min Assist Distance (ft): 215 Quality of gait: unequal step length-shorter on R, bilat feet in ER throughout, unsteadiness, postural sway, reliance on B UE, verbal and manual cues needed for walker redirection to avoid obstacles in hallway and to keep walker closer to his body Transfers/Mobility Sit to stand: Min Assist Stand to sit: Min Assist One trial sit to stand from chair to FWW, one trial from commode to FWW for dependent pericare. One trial stand to sit to commode. One trial to chair- verbal cues needed for proper hand placement Device(s) used: front wheeled walker Balance: Pt able to stand using FWW and grab bar with Min A for approx 2 minutes for dependent pericare. Pt demonstrated unsteadiness during ambulation but did not have any LOB. Posture: Forward flexed posture noted in standing with reliance on B UE on FWW Sitting - Static: SBA Sitting - Dynamic: SBA Standing - Static: Min Assist Standing - Dynamic: Min Assist Plan Continue acute PT per plan of care. Safety/Education Safety Safety Devices in place: call light within reach, left in chair, chair alarm in place, gait belt, patient at risk for falls, and commercial real estate paralegal present Restraints: No Education Education Given To: patient Education Provided: PT Role, PT Goals, Gait Training, and Transfer Training Education Method: Verbal Barriers to Learning: Cognition, Hearing Education Outcome: Verbalized Understanding and Continued Education Needed Outcome Measures AM-PAC AM-PAC Inpatient Mobility Raw Score (No Stairs) : 14 JH-HLM JH-HLM Score: Walked 25 ft or more (i.e. walked outside of room) Goals Patient Stated Goal: to go to rehab Encounter Problems Encounter Problems (Active) Mobility Patient will ambulate 50 feet with modified independence and least restrictive device in order to improve safety and independence with mobility. (Progressing) Start: 08/01/23 Expected End: 08/15/23 Patient will ascend and descend 5-6 stairs with least restrictive device and modified independence in order to safely negotiate home. (Not Addressed) Start: 08/01/23 Expected End: 08/15/23 Pain - Adult Safety Patient will recall/demonstrate weight bearing and/or ROM restrictions with all functional mobility in order to promote healing and safety with functional tasks. (Progressing) Start: 08/01/23 Expected End: 08/15/23 Transfers Patient will perform bed mobility with modified independence in order to improve independence and prepare for out of bed mobility. (Not Addressed) Start: 08/01/23 Expected End: 08/15/23 Patient will complete functional transfer with least restrictive device with modified independence in order to prepare for ambulation. (Progressing) Start: 08/01/23 Expected End: 08/15/23 Therapy Time Individual Co-treatment Time In 1340 (one gait, one function) Time Out 1412 Minutes 32 Timed Code Treatment Minutes: 32 Minutes ESTIVEN Novoa Images from the original note were not included. Hospitalist Progress Note 08/04/2023 [phone]: Please page me ([phone]) for patient care issues. [phone]: Please page [facility] Hospitalist for any issues. Subjective: Admit Date: 07/31/2023 PCP: Hermann Damian MD Room#: H-6118/H-6118 A Interval History: No overnight issues. Denies chest pain or sob. No abdominal pain, nausea, vomiting. No fevers or chills. Adult diet Regular @DYIN2YCYFPG@ 24HR INTAKE/OUTPUT: Intake/Output Summary (Last 24 hours) at 08/04/2023 1036 Last data filed at 08/04/2023 0630 Gross per 24 hour Intake -- Output 2270 ml Net -2270 ml Past Medical History: Past Medical History: Diagnosis Date Acute deep vein thrombosis (DVT) of popliteal vein of left lower extremity (HCC) 11/18/2022 11/04/2022. xarelto x 3 months Arthritis Cancer (CMS/HCC) (HCC) BSC of nose History of elevated PSA Hyperlipidemia Hypertension Poison gt 11/22/2020 Umbilical hernia without obstruction or gangrene SCHEDULED FOR THE SURGERY ON 05/28 Viral URI with cough 04/11/2022 LABS: CBC: Recent Labs 08/03/23 0256 08/04/23 003 WBC 10.8* 9.1 RBC 3.30* 3.38* HGB 9.7* 9.9* HCT 30.8* 31.1* MCV 93.3 92.0 RDW 14.2 14.1 PLT 162 168 BMP: Recent Labs 08/03/236 08/04/2336 NA 134* 136 K 4.1 4.0 CL 106 106 CO2 BUN 41* 38* CREATININE 1.96* 1.63* GLUCOSE 145* 127* CALCIUM 7.8* 7.8* ANIONGAP 4 6 LIVER PROFILE: No results for input(s): AST, ALT, BILITOT, ALKPHOS, PROT in the last 72 hours. No lab exists for component: LABALBU PT/INR: No results for input(s): PROTIME, INR in the last 72 hours. CARDIAC ENZYMES: No results for input(s): TROPONINI in the last 72 hours. Procalcitonin: No results found for: PROCAL COVID-19 PCR: No results for input(s): COVID19 in the last 72 hours. Objective: Vitals: BP 147/77 (BP Location: Left arm, Patient Position: Sitting) Pulse 86 Temp 37.6 C (99.7 F) (Temporal) Resp 16 SpO2 93% Pulse Ox: SpO2 Av.5 % Min: 93 % Max: 94 % Supplemental O2: O2 Flow Rate (L/min): 2 L/min General appearance: No apparent distress, appears stated age, HEENT: Eyes: No scleral icterus Oral: Tongue is semi-moist Cardiovascular: S1/S2 heard, RRR Respiratory: Clear to auscultation bilaterally Abdomen: Soft, non-tender, non-distended bowel sounds positive Musculoskeletal: No obvious deformities seen Skin: No visible rashes or lesions. Medications: sodium chloride, 75 mL/hr, Last Rate: 75 mL/hr (08/04/23 045) cetirizine, 10 mg, Oral, Daily [Held by provider] docusate sodium, 100 mg, Oral, BID famotidine, 20 mg, Oral, BID Lidocaine, 1 patch, Topical, Daily [Held by provider] polyethylene glycol (PEG) 3350, 17 g, Oral, Daily sodium chloride 0.9%, 10 mL, IntraVENous, 2 times per day tamsulosin, 0.4 mg, Oral, Daily [Held by provider] valsartan, 40 mg, Oral, Daily Assessment Acute, acute on chronic, unstable/uncontrolled chronic problems/diagnoses: # Lumbar spinal stenosis/spondylosis--status post L2, L3, L4, L5 laminectomy, L4-L5 fusion done on 07/31/2023 # Mild anemia post op - likely due to mild blood loss and IVF dilution # Leukocytosis post op - likely due to intra-op steroids. # DVT proph: SCDs Stable chronic problems affecting care, new non-acute diagnoses: Hypertension Elevated PSA Chronic kidney disease stage III with baseline creatinine 1.4-1.5 - at baseline. DVT of left leg, completed anticoagulation Plan -Holdind Diovan due to rising creat (likely from diarrhea/DAVID drain fluid loss and poor po fluid intake) -continue IVF at 75 ml/hr (ordered for 24 hours only). Creat improving. Patient encouraged to take better po fluid intake. -Held senna/miralax due to diarrhea -DAVID drained removed today per neurosurgery. -Urology recommending void trial on day of discharge -check am labs -PT/OT saw and recommending IP rehab. TCC/SW arranging for [facility]. -will continue to follow with you for medical management. Anticipated Discharge - Date - Tomorrow? Neurosurgery is primary. - Location - Home - Pending the following - once approved for [facility] (neurosurgery primary) Extended Emergency Contact Information Primary Emergency Contact: Manju Sales Relation: Spouse JAMES SIMPSON MD Division of Hospitalist Medicine Inpatient Medical Services/[facility] [place] PAGER: Epic chat Department of Neurosurgery Progress Note Chief Complaint: lumbar stenosis SUBJECTIVE: s/p lumbar decompression and fusion. He has some incisional pain. Complaining of difficulty sleeping with lopez in. Denies headache. OBJECTIVE Physical BP 147/77 (BP Location: Left arm, Patient Position: Sitting) Pulse 86 Temp 37.6 C (99.7 F) (Temporal) Resp 16 SpO2 93% NEUROLOGIC: A&O x3 [place] BLE 5/5 strength Sensation intact DAVID drain removed, 220 ml last shift, CSF appearing Incision C/D/I ASSESSMENT AND PLAN 88 y.o. male status post lumbar decompression and fusion post op day #4 Pt progressing as expected DAVID drain removed today due to increased CSF appearing output, tip intact, staple placed Activity increase to up with assist Urology recommending void trial on day of discharge Appreciate internal medicine team recommendations Continue to work with PT/OT, recommending IP rehab Plan is discharge to [facility] once authorized and medically ready Images from the original note were not included. Hospitalist Progress Note 08/03/2023 [phone]: Please page pr ([phone]) for patient care issues. [phone]: Please page [facility] Hospitalist for any issues. Subjective: Admit Date: 07/31/2023 PCP: Hermann Damian MD Room#: H-6118/H-6167 A Interval History: No overnight issues. Denies chest pain or sob. No abdominal pain, nausea, vomiting. No fevers or chills. Adult diet Regular @[id number]@ 24HR INTAKE/OUTPUT: Intake/Output Summary (Last 24 hours) at 08/03/2023 1259 Last data filed at 08/03/2023 1121 Gross per 24 hour Intake 600 ml Output 1110 ml Net -510 ml Past Medical History: Past Medical History: Diagnosis Date Acute deep vein thrombosis (DVT) of popliteal vein of left lower extremity (HCC) 11/18/2022 11/04/2022. xarelto x 3 months Arthritis Cancer (CMS/HCC) ([facility]) BSC of nose History of elevated PSA Hyperlipidemia Hypertension Poison gt 11/22/2020 Umbilical hernia without obstruction or gangrene SCHEDULED FOR THE SURGERY ON 05/28 Viral URI with cough 04/11/2022 LABS: CBC: Recent Labs 08/01/23 0222 08/03/23 0256 WBC 14.6* 10.8* RBC 4.35* 3.30* HGB 12.8* 9.7* HCT 38.6* 30.8* MCV 88.7 93.3 RDW 13.3 14.2 PLT 219 162 BMP: Recent Labs 08/01/2322108/03/23255 NA 136 134* K 4.9 4.1 CL 103 106 CO2 26 24 BUN 26* 41* CREATININE 1.39* 1.96* GLUCOSE 141* 145* CALCIUM 8.6 7.8* ANIONGAP 6 4 LIVER PROFILE: Recent Labs 08/01/23221 AST 30 ALT 20 BILITOT 0.7 ALKPHOS 64 PROT 6.3 PT/INR: Recent Labs 08/01/23221 PROTIME 10.8 INR 1.0 CARDIAC ENZYMES: No results for input(s): TROPONINI in the last 72 hours. Procalcitonin: No results found for: PROCAL COVID-19 PCR: No results for input(s): COVID19 in the last 72 hours. Objective: Vitals: BP 123/68 (BP Location: Right arm, Patient Position: Sitting) Pulse 80 Temp 36.6 C (97.8 F) (Temporal) Resp 16 SpO2 92% Pulse Ox: SpO2 Av % Min: 92 % Max: 94 % Supplemental O2: O2 Flow Rate (L/min): 2 L/min General appearance: No apparent distress, appears stated age, HEENT: Eyes: No scleral icterus Oral: Tongue is semi-moist Cardiovascular: S1/S2 heard, RRR Respiratory: Clear to auscultation bilaterally Abdomen: Soft, non-tender, non-distended bowel sounds positive Musculoskeletal: No obvious deformities seen Skin: No visible rashes or lesions. Medications: cetirizine, 10 mg, Oral, Daily [Held by provider] docusate sodium, 100 mg, Oral, BID famotidine, 20 mg, Oral, BID Lidocaine, 1 patch, Topical, Daily [Held by provider] polyethylene glycol (PEG) 3350, 17 g, Oral, Daily sodium chloride 0.9%, 10 mL, IntraVENous, 2 times per day tamsulosin, 0.4 mg, Oral, Daily valsartan, 40 mg, Oral, Daily Assessment Acute, acute on chronic, unstable/uncontrolled chronic problems/diagnoses: # Lumbar spinal stenosis/spondylosis--status post L2, L3, L4, L5 laminectomy, L4-L5 fusion done on 07/31/2023 # Mild anemia post op - likely due to mild blood loss and IVF dilution # Leukocytosis post op - likely due to intra-op steroids. # DVT proph: SCDs Stable chronic problems affecting care, new non-acute diagnoses: Hypertension Elevated PSA Chronic kidney disease stage III with baseline creatinine 1.4-1.5 - at baseline. DVT of left leg, completed anticoagulation Plan -Hold Diovan due to rising creat (likely from diarrhea/DAVID drain fluid loss and poor po fluid intake) -Start NS IVF at 75 ml/hr for 24 hours. Recheck creat in am -Held senna/miralax due to diarrhea -Per neurosurgery, continue DAVID drain today due to increased output Vitals okay this am. -Urology recommending void trial on day of discharge -check am labs -PT/OT saw and recommending IP rehab. TCC/SW arranging for [facility]. -will continue to follow with you for medical management. Extended Emergency Contact Information Primary Emergency Contact: Manju Sales Relation: Spouse JAMES SIMPSON MD Division of Hospitalist Medicine Inpatient Medical Services/[facility] [place] PAGER: Epic chat Images from the original note were not included. PHYSICAL THERAPY [facility] Treatment Note Name/MRN: Tennille Sales ([id number]) Date of : 1935 Age: 88 y.o. Room/Bed: -6118/-6118 A Discharge Recommendation: IP Rehab Equipment Needed: No Other: tbd Prior Level of Function ADL Assistance: Independent Ambulation Assistance: Independent Device(s) used: front wheeled walker and cane Transfer Assistance: Independent Assessment Pt progressing w/ PT mobility goals, and is limited by LBP w/ WB activity. Pt required Mod x1 to complete log roll to sit EOB w/ HOB slightly elevated. Pt able to stand w/ Min x1 from EOB; cues for hand placement. Pt able to ambulate short distance in room w/ FWW; CGA/Min x1 for balance. Pt not safe to return home, and would benefit from ongoing inpt rehab post Disch. Subjective Pt in bed, states he has not eaten this morning d/t testing. Pt agreeable to PT. Nsg cleared Pt for PT. Pain: RN managing pain. Pt notes intermittent LBP more R than L (hip region per Pt report) Medical Precautions: No active isolations Proper PPE donned/doffed in accordance with facility standards. Fall Risk: Head Fall Risk Score: 60 (High Risk) Precautions/Restrictions: Spine Precautions: No Bending, No Lifting, No Twisting Lines/Drains/Airways: PIV PIV Overall Cognitive Status: WFL Overall Orientation Status: Oriented to Place, Oriented to Situation, and Oriented to Person Family/Caregiver Present: none Objective Ambulation Ambulation 1 Assistive device(s) used: front wheeled walker Assist level: Min Assist Distance (ft): 15ft Quality of gait: antalgic, reciprocal stepping, B foot clearance, uneven step length, wide IRENA, slow cynthia, path deviations, instability through all phases Transfers/Mobility Sit to stand: Min Assist Stand to sit: Min Assist X2 from EOB; x1 from chair; cues for hand placement and to reach back for chair Device(s) used: front wheeled walker Exercises Exercises Heelslides: x10 rep ea LE; RLE partial AAROM Gluteal Sets: x5 rep Hip Extension/Leg Presses: x4 rep ea LE w/ light manual resist Hip Abduction: x5 rep ea LE + ADD; RLE AAROM Knee Long Arc Quad: x7 rep ea LE Ankle Pumps: x15 rep BLE Comments: Pt encouraged to perform BLE ROM Ex on own during day Bed Mobility Supine to sit: Mod Assist Rolling to left: Contact Guard, Min Assist Scooting: Min Assist HOB slightly elevated; use of rail noted; cues for sequencing for log roll Balance: Pt able to sit EOB w/ BUE support. Pt able to agricultural engineering technician FWW; cues for lateral weight shifting and improved IRENA. Mini marches x10 rep before gait Posture: fair Sitting - Static: SBA, Contact Guard Sitting - Dynamic: Min Assist Standing - Static: Contact Guard, Min Assist Standing - Dynamic: Min Assist Plan Continue acute PT per plan of care. Safety/Education Safety Safety Devices in place: All fall risk precautions in place, call light within reach, left in chair, chair alarm in place, gait belt, patient at risk for falls, and nurse notified Restraints: No Education Up to chair for meals; up to bathroom w/ assist; ambulate daily in hallways; BLE ROM Ex. Outcome Measures AM-PAC AM-PAC Inpatient Mobility Raw Score (No Stairs) : 13 JH-HLM JH-HLM Score: Walked 10 steps or more (i.e. walked to restroom) Other: na Goals Patient Stated Goal: to go to rehab Encounter Problems Encounter Problems (Active) Mobility Patient will ambulate 50 feet with modified independence and least restrictive device in order to improve safety and independence with mobility. (Progressing) Start: 08/01/23 Expected End: 08/15/23 Patient will ascend and descend 5-6 stairs with least restrictive device and modified independence in order to safely negotiate home. (Not Addressed) Start: 08/01/23 Expected End: 08/15/23 Pain - Adult Safety Patient will recall/demonstrate weight bearing and/or ROM restrictions with all functional mobility in order to promote healing and safety with functional tasks. (Progressing) Start: 08/01/23 Expected End: 08/15/23 Transfers Patient will perform bed mobility with modified independence in order to improve independence and prepare for out of bed mobility. (Progressing) Start: 08/01/23 Expected End: 08/15/23 Patient will complete functional transfer with least restrictive device with modified independence in order to prepare for ambulation. (Progressing) Start: 08/01/23 Expected End: 08/15/23 Therapy Time Individual Co-treatment Time In 0905 Time Out 0944 Minutes 39 Timed Code Treatment Minutes: 39 Minutes (FA x2; TP x1) Geovanni Girard PTA Department of Neurosurgery Progress Note Chief Complaint: lumbar stenosis SUBJECTIVE: s/p lumbar decompression and fusion. He has some incisional pain. Complaining of difficulty sleeping with lopez in. OBJECTIVE Physical BP 123/68 (BP Location: Right arm, Patient Position: Sitting) Pulse 80 Temp 36.6 C (97.8 F) (Temporal) Resp 16 SpO2 92% NEUROLOGIC: A&O x3 [place] MCNEILL BLE 5/5 strength Sensation intact Drain intact with 140 ml last shift Dressing C/D/I ASSESSMENT AND PLAN 88 y.o. male status post lumbar decompression and fusion post op day #3 Pt progressing as expected Continue DAVID drain today due to increased output Activity increase to up with assist Urology recommending void trial on day of discharge Appreciate internal medicine team recommendations Continue to work with PT/OT, recommending IP rehab Plan is discharge to [facility] once authorized and medically ready Images from the original note were not included. PHYSICAL THERAPY [facility] Treatment Note Name/MRN: Tennille Sales ([id number]) Date of : 1935 Age: 88 y.o. Room[facility]Bed: [facility] A Discharge Recommendation: IP Rehab Equipment Needed: (tbd) Prior Level of Function ADL Assistance: Independent Ambulation Assistance: Independent Device(s) used: front wheeled walker and cane Transfer Assistance: Independent Assessment Pt complaining about abdominal binding being to tight. Instructed that it is for comfort and physical cue for spinal precautions. Pt sitting in chair upon arrival family present. Pt performs STS from chair with mod A, ambulates with CGA and min A for turns. Pt ambulates to bathroom and transfers to BSC over toliet with min A for doffing pants and cues for hand placement onto handles. Pt requires mod A to stand from BSC and use of BUE on GB. Pt given max A for LE dressing. Pt returned to chair with CGA and cues to reach back for chair. When asked about his precautions he said I don't know. Subjective Pleasant and agreeable, hard of hearing. Pain: I'm not bad when I'm just sitting here but when I move it feels all restricted and tight Medical Precautions: No active isolations Proper PPE donned/doffed in accordance with facility standards. Fall Risk: Head Fall Risk Score: 60 (High Risk) Precautions/Restrictions: Spine Precautions: No Bending, No Lifting, No Twisting Lines/Drains/Airways: PIV PIV Overall Cognitive Status: WNL Overall Orientation Status: Oriented x4 Family/Caregiver Present: spouse and child(pam) Objective Ambulation Ambulation 1 Assistive device(s) used: front wheeled walker Assist level: Contact Guard Distance (ft): 100 Quality of gait: wide IRENA, slow cynthia, decreased foot clearance, bend at hips, decreased safety with turns picks up walker. Pt is educated that he can push walker when turning instead of picking it up off the floor. Pt breathing a little heavier d/t pain/discomfort with standing. Transfers/Mobility Sit to stand: Mod Assist Stand to sit: Min Assist Toilet: Mod Assist Pt transfers from chair with mod A and cues for hand placement. Pt used BSC placed over toilet for handles. Pt needed VC for hand placement and to bring walker with him as he backs up. Pt needed cues again to bring walker to chair when backing up for increased stability and safety. Pt holds onto walker instead of reaching back for armrests. Device(s) used: front wheeled walker Plan Continue acute PT per plan of care. Safety/Education Safety Safety Devices in place: left in chair, chair alarm in place, and family present Restraints: N/A Education Education Given To: patient Education Provided: PT Role, PT Goals, Gait Training, Transfer Training, Energy Conservation, Fall Prevention Education, and Benefits of Increasing Activity Education Method: Verbal Barriers to Learning: Hearing Education Outcome: Verbalized Understanding and Continued Education Needed Outcome Measures AM-PAC AM-PAC Inpatient Mobility Raw Score (No Stairs) : 12 JH-HLM JH-HLM Score: Walked 25 ft or more (i.e. walked outside of room) Goals Patient Stated Goal: to go to rehab Encounter Problems Encounter Problems (Active) Mobility Patient will ambulate 50 feet with modified independence and least restrictive device in order to improve safety and independence with mobility. (Initiated) Start: 08/01/23 Expected End: 08/15/23 Patient will ascend and descend 5-6 stairs with least restrictive device and modified independence in order to safely negotiate home. (Not Addressed) Start: 08/01/23 Expected End: 08/15/23 Pain - Adult Safety Patient will recall/demonstrate weight bearing and/or ROM restrictions with all functional mobility in order to promote healing and safety with functional tasks. (Initiated) Start: 08/01/23 Expected End: 08/15/23 Transfers Patient will perform bed mobility with modified independence in order to improve independence and prepare for out of bed mobility. (Not Addressed) Start: 08/01/23 Expected End: 08/15/23 Patient will complete functional transfer with least restrictive device with modified independence in order to prepare for ambulation. (Initiated) Start: 08/01/23 Expected End: 08/15/23 Therapy Time Individual Co-treatment Time In 1140 Time Out 1203 Minutes 23 [place] PT Images from the original note were not included. Hospitalist Progress Note 08/02/[id number]: Please page pr ([phone]) for patient care issues. [phone]: Please page [facility] Hospitalist for any issues. Subjective: Admit Date: 07/31/2023 PCP: Hermann Damian MD Room#: H-6118/H-6118 A Interval History: No overnight issues. Denies chest pain or sob. No abdominal pain, nausea, vomiting. No fevers or chills. Adult diet Regular @[id number]@ 24HR INTAKE/OUTPUT: Intake/Output Summary (Last 24 hours) at 08/02/2023 1154 Last data filed at 08/02/2023 0825 Gross per 24 hour Intake 1040 ml Output 3000 ml Net -1960 ml Past Medical History: Past Medical History: Diagnosis Date Acute deep vein thrombosis (DVT) of popliteal vein of left lower extremity (HCC) 11/18/2022 11/04/2022. xarelto x 3 months Arthritis Cancer (CMS/HCC) (HCC) BSC of nose History of elevated PSA Hyperlipidemia Hypertension Poison gt 11/22/2020 Umbilical hernia without obstruction or gangrene SCHEDULED FOR THE SURGERY ON 05/28 Viral URI with cough 04/11/2022 LABS: CBC: Recent Labs 08/01/23221 WBC 14.6* RBC 4.35* HGB 12.8* HCT 38.6* MCV 88.7 RDW 13.3 PLT 219 BMP: Recent Labs 08/01/23221 NA 136 K 4.9 CL 103 CO2 26 BUN 26* CREATININE 1.39* GLUCOSE 141* CALCIUM 8.6 ANIONGAP 6 LIVER PROFILE: Recent Labs 08/01/23221 AST 30 ALT 20 BILITOT 0.7 ALKPHOS 64 PROT 6.3 PT/INR: Recent Labs 08/01/23 0222 PROTIME 10.8 INR 1.0 CARDIAC ENZYMES: No results for input(s): TROPONINI in the last 72 hours. Procalcitonin: No results found for: PROCAL COVID-19 PCR: No results for input(s): COVID19 in the last 72 hours. Objective: Vitals: BP 148/80 Pulse 81 Temp 37.4 C (99.4 F) (Temporal) Resp 18 SpO2 94% Pulse Ox: SpO2 Av.5 % Min: 92 % Max: 95 % Supplemental O2: O2 Flow Rate (L/min): 2 L/min General appearance: No apparent distress, appears stated age, HEENT: Eyes: No scleral icterus Oral: Tongue is semi-moist Cardiovascular: S1/S2 heard, RRR Respiratory: Clear to auscultation bilaterally Abdomen: Soft, non-tender, non-distended bowel sounds positive Musculoskeletal: No obvious deformities seen Skin: No visible rashes or lesions. Medications: cetirizine, 10 mg, Oral, Daily docusate sodium, 100 mg, Oral, BID famotidine, 20 mg, Oral, BID Lidocaine, 1 patch, Topical, Daily polyethylene glycol (PEG) 3350, 17 g, Oral, Daily sodium chloride 0.9%, 10 mL, IntraVENous, 2 times per day valsartan, 40 mg, Oral, Daily Assessment Acute, acute on chronic, unstable/uncontrolled chronic problems/diagnoses: # Lumbar spinal stenosis/spondylosis--status post L2, L3, L4, L5 laminectomy, L4-L5 fusion done on 07/31/2023 # Mild anemia post op - likely due to mild blood loss and IVF dilution # Leukocytosis post op - likely due to intra-op steroids. # DVT proph: SCDs Stable chronic problems affecting care, new non-acute diagnoses: Hypertension Elevated PSA Chronic kidney disease stage III with baseline creatinine 1.4-1.5 - at baseline. DVT of left leg, completed anticoagulation Plan -Stop IVF -Change IV pepcide to po bid. -Vitals okay this am. -check am labs -PT/OT saw and recommending IP rehab. TCC/SW arranging for [facility]. -will continue to follow with you for medical management. Extended Emergency Contact Information Primary Emergency Contact: Manju Sales Relation: Spouse JAMES SIMPSON MD Division of Hospitalist Medicine Inpatient Medical Services/[facility] [place] PAGER: Epic chat Images from the original note were not included. OCCUPATIONAL THERAPY [facility] Treatment Note Name/MRN: Tennille Sales ([id number]) Date of : 1935 Age: 88 y.o. Room/Bed: 6118/6118 A Discharge Recommendation: Assisted Facility, IP Rehab Equipment Needed: Yes Mobility Devices: Walker, ADL Assistive Devices Walker: Rolling ADL Assistive Devices: Toileting - Standard Commode, Elastic Shoe Laces, Transfer Tub Bench, Book Agent, Sock-Aid Hard, Long-handled Shoe Horn, Long-handled Sponge, Emergency Alert System Prior Level of Function ADL Assistance: Needs Assist Ambulation Assistance: Needs Assistance Device(s) used: front wheeled walker Transfer Assistance: Needs Assist Assessment Pt limited with pain, back precautions, [place], decreased strength/endurance. Pt is copious conversationalist and [place]; extra time for all tasks. Min - Max A for ADLs, transfers and mobility. Highly recommend IPR; able to tolerate 3 hours of intensive therapy. Pt requested IPR at [facility]. Subjective Pt agreeable to OT services. Pain: RN managing pain. Medical Precautions: No active isolations Proper PPE donned/doffed in accordance with facility standards. Fall Risk: Head Fall Risk Score: 60 (High Risk) Precautions/Restrictions: Spine Precautions: No Bending, No Lifting, No Twisting Lines/Drains/Airways: PIV PIV Family/Caregiver Present: end of session; and grandson Objective ADLs Grooming: Supervision, after setup, seated oral, hand and facial hygiene UE Dressing: hospital gown; assist with drain LE Dressing: Max Assist, donning brief and pants/lopez, and doff/don bilateral socks. Toileting: pt declined need to void; lopez in place. Increased pain through penis due to placement/removal of lopez 4x yesterday; clotting observed; RN aware. Recommend BSC over toilet for riser/BUE support; L grab bar only accessible in room. Adaptive Equipment: Discussed AE hip kit, transfer bench, BSC; did not trial AE due time restraint/copious conversationalist. Bed Mobility Supine to sit: Max Assist, BLE to EOB and trunk elevation Scooting: Modified Independent, use of R bedrail Log roll completed for bed mobility with cues. Transfers/Mobility Sit to stand: Mod Assist, height of bed elevated completed 3x and recliner x2 trials. Stand to sit: Min Assist, controlled descent cues for body alignment prior to sitting, hand placement Bed to chair: Min Assist, fww used; cues to remain within IRENA/fww Standing balance: Modified Independent Functional mobility: Min Assist, fww mgmt assist with transitional turns, avoid picking up fww, remain within IRENA/fww Device(s) used: front wheeled walker and hospital bed Cognition - Ax0x3 [place] extra time required. Plan Continue acute OT per plan of care. Safety/Education Safety Safety Devices in place: All fall risk precautions in place, call light within reach, left in chair, chair alarm in place, gait belt, patient at risk for falls, and nurse notified Restraints: No Education Education Given To: patient and patient and spouse Education Provided: OT Role, Plan of Care, Precautions, ADL Adaptive Strategies, Transfer Training, Energy Conservation, Family Education, Equipment, Fall Prevention Education, Discharge Recommendations, Benefits of Increasing Activity, and Breathing Techniques Education Method: Verbal, Demonstration, and Teach Back Barriers to Learning: Hearing Education Outcome: Verbalized Understanding and Continued Education Needed AM-PAC AM-PAC Inpatient Daily Activity Raw Score: 16 ADL Inpatient CMS G-Code Modifier: CK Goals Patient Stated Goal: [facility] for therapy Encounter Problems Encounter Problems (Active) Balance Patient will maintain static standing balance for 5+ minutes with CGA in order to demonstrate decreased risk of falling. (Progressing) Start: 08/01/23 Dressings Lower Extremities Patient will dress lower body supervision (Progressing) Start: 08/01/23 Transfers Patient will complete functional transfer with least restrictive device with supervision in order to prepare for ambulation. (Progressing) Start: 08/01/23 Patient will perform bed mobility with supervision in order to improve independence and prepare for out of bed mobility. (Progressing) Start: 08/01/23 Therapy Time Individual Co-treatment Time In 914 Time Out 1023 Minutes 68 Timed Code Treatment Minutes: 68 Minutes (2 self 3 act) O[facility] Pederson Department of Neurosurgery Progress Note Chief Complaint: lumbar stenosis SUBJECTIVE: s/p lumbar decompression and fusion. He feels better this morning since lopez was replaced due to retention. OBJECTIVE Physical BP 148/80 Pulse 81 Temp 37.4 C (99.4 F) (Temporal) Resp 18 SpO2 94% NEUROLOGIC: A&O x3 [place] MCNEILL BLE 5/5 strength Sensation intact Drain intact with 90 ml last shift Dressing C/D/I ASSESSMENT AND PLAN 88 y.o. male status post lumbar decompression and fusion post op day #2 Pt progressing as expected Continue DAVID drain today, remove tomorrow Activity increase to up with assist Lopez replaced due to urinary retention, will consult urology Appreciate internal medicine team recommendations Continue to work with PT/OT, recommending IP rehab Plan is discharge to [facility] once authorized and medically ready Seen with Dr Young Nutrition rescreen completed. Chart reviewed. Patient to be monitored and followed by the diet data reduction technician. Dietitian available upon request. Images from the original note were not included. PHYSICAL THERAPY [facility] Initial Evaluation Name/MRN: Tennille Sales ([id number]) Evaluation Date: 08/01/2023 Date of : 1935 Admission Date: 07/31/2023 5:47 AM Age: 88 y.o. Room/Bed: 6118/6118 A Discharge Recommendation: IP Rehab Equipment Needed: (tbd) Assessment IMPRESSION: The pt is admitted with lumbar stenosis with neurogenic claudication and is s/p L 2-3-4-5 laminectomy and L4-5 fusion. He will continue to benefit from therapy for he functional deficits and to improve he overall functional capacity. The pt would be able to work up to tolerating 3 hours of therapy a day and IP REHAB is recommended at discharge. Min to mod assist was required for mobility this date. Pt required increased time and cues for tasks and demonstrated decreased safety awareness. Increased cues were required as well, but pt is also hard of hearing. He is a fall risk and cues for walker position and posture were needed periodically while ambulating. Pt did present with a resting tremor observed in head/neck muscles. Redirection to topic was required periodically and pt did perseverate on wanting to go to REHAB in [place]. Pt did present as impulsive with initiation of movement several times during session. Diagnosis: lumbar stenosis with neurogenic claudication and is s/p L 2-3-4-5 laminectomy and L4-5 fusion Prognosis: fair Performance Deficits /Impairments: Increased Pain, Decreased Functional Mobility, Decreased ADL status, Decreased ROM, Decreased Strength, Decreased Safety Awareness, Decreased Cognition, Decreased Endurance, Decreased Balance, Decreased Coordination, and Decreased Posture Decision Making: Medium Complexity Subjective Pt up in bathroom with student nurse and agreed to PT. Pt did report feeling tired and indicated that he would not be able to do much today. Pain: 7 back Past Medical History: Past Medical History: Diagnosis Date Acute deep vein thrombosis (DVT) of popliteal vein of left lower extremity ([facility]) 11/18/2022 11/04/2022. xarelto x 3 months Arthritis Cancer ([facility]/HCC) ([facility]) BSC of nose History of elevated PSA Hyperlipidemia Hypertension Poison gt 11/22/2020 Umbilical hernia without obstruction or gangrene SCHEDULED FOR THE SURGERY ON 05/28 Viral URI with cough 04/11/2022 Past Surgical History: Past Surgical History: Procedure Laterality Date CATARACT EXTRACTION Right COLONOSCOPY HEMORRHOID SURGERY 1999 [facility] HERNIA REPAIR Right inguinal LAMINECTOMY 07/31/2023 L2, L3, L4, L5 laminectomy L4-L5 fusion NOSE SURGERY A KID UMBILICAL HERNIA REPAIR 05/28/2019 Admission Diagnosis: Patient Active Problem List Diagnosis Date Noted Lumbar stenosis with neurogenic claudication 07/31/2023 Dermatitis 04/03/2023 Bilateral lower extremity edema 04/03/2023 OAB (overactive bladder) 10/18/2022 Chronic rhinitis 10/18/2022 Post-nasal drainage 10/04/2022 Chronic renal disease, stage III (HCC) 12/14/2021 Osteoarthritis of right hip 12/05/2021 Sebaceous cyst 12/05/2021 Rotator cuff tendinitis, left 07/05/2021 Trigger finger, left ring finger 01/05/2021 Greater trochanteric bursitis of right hip 10/10/2020 Hyperlipidemia 04/11/2020 Basal cell carcinoma of nose 10/07/2019 Prediabetes 12/27/2018 Elevated PSA, between 10 and less than 20 ng/ml 04/06/2018 Umbilical hernia without obstruction and without gangrene 04/06/2018 Allergic rhinitis 10/02/2017 Benign head tremor 02/27/2017 Urge incontinence 08/08/2016 Essential hypertension, benign 06/21/2016 Medical Precautions: No active isolations Proper PPE donned/doffed in accordance with facility standards. Fall Risk: Head Fall Risk Score: 60 (High Risk) Precautions/Restrictions: Spine Precautions: No Bending, No Lifting, No Twisting Lines/Drains/Airways: PIV PIV Family/Caregiver Present: none Overall Cognitive Status: Exceptions - Arousal/alertness: appropriate responses to stimuli - Following commands: follows one step commands with increased time and follows one step commands with repetition - Attention span: attends with cues to redirect, difficulty attending to directions, difficulty dividing attention, and unable to maintain attention - Memory: decreased recall of precautions and decreased short term memory - Safety judgement: decreased awareness of need for assistance and decreased awareness of need for safety - Problem solving: assistance required to generate solutions, assistance required to implement solutions, assistance required to identify errors made, assistance required to correct errors made, and decreased awareness of errors - Insights: decreased awareness of deficits - Initiation: requires cues for some - Sequencing: requires cues for some Overall Orientation Status: Oriented to Place, Oriented to Time, Oriented to Situation, and Oriented to Person Vision: WFL for therapy Hearing: bilateral hearing aide(s) and are NOT being used during the eval Social/Functional History Patient admitted from home. Lives With: Spouse Type of Home: single family home Home Layout: Single Level Home, Laundry in Basement, and Able to Live on Main Level Home Access: Stairs to Enter with Rails (# of stairs: 8) Bathroom Shower/Tub: Tub/Shower Combo, Shower Chair with Back, and Grab Bars Toilet: Standard Home Equipment: front wheeled walker and cane Homemaking Responsibilities: Needs Assist Receives Help From: Spouse Active Business Banking Officer: N/A Prior Level of Function ADL Assistance: Independent Ambulation Assistance: Independent Device(s) used: front wheeled walker and cane Transfer Assistance: Independent Objective Lower Extremity Assessment AROM: WFL Strength: 3/5 observed through function bilat LE Bed Mobility: Pt up in room, not assessed Transfers Sit to stand: Mod Assist Stand to sit: Min Assist From chair with cues for hands, FWW Ambulation Ambulation 1 Assistive device(s) used: cane Assist level: Mod Assist Distance (ft): 3-4 ft Quality of gait: flexed posture, head down, unsteady, reaching for objects for balance with free UE, decreased step length, height, and velocity, Ambulation 2 Assistive device(s) used: front wheeled walker Assist level: Min Assist Distance (ft): 18 ft Quality of gait: flexed posture, head down, unsteady, decreased step length, height, and velocity, Tone: no increased tone noted. Sensation: WFL Tremors: head/neck observed at rest Balance: Pt min assist for standing balance with bilat UE support and cues for posture. Posture: fair Sitting - Static: Supervision Sitting - Dynamic: Min Assist Standing - Static: Min Assist Standing - Dynamic: Mod Assist Upper Extremity: ROM WFL, 3/5 observed bilat UE through function Outcome Measures AM-PAC How much HELP from another person do you currently need Turning from your back to your side while in a flat bed without using bedrails?: A Lot Moving from lying on your back to sitting on the side of a flat bed without using bedrails?: A Lot Moving to and from a bed to a chair (including a wheelchair)?: A Little Standing up from a chair using your arms (wheelchair or bedside chair)?: A Lot Walking in a hospital room?: A Little Stair climbing assessed?: No AM-PAC Inpatient Mobility Raw Score (No Stairs) : 12 JH-HLM -HLM Score: Walked 10 steps or more (i.e. walked to restroom) Plan Pt would benefit from skilled acute PT services to address Strengthening, ROM, Balance Training, Functional Mobility Training, Endurance Training, Gait Training, Stair Training, and Safety Education and Training. Frequency: 2x/week for 2 weeks Barriers: Pain, Limited family support, Confusion, Impulsivity, Limited safety awareness, Limited insight into deficits, Decreased endurance, Decreased proprioception, Upper extremity weakness, Lower extremity weakness, Long standing deficits, and Stairs at home Safety/Education Safety Safety Devices in place: call light within reach, left in chair, chair alarm in place, patient at risk for falls, and nurse notified Restraints: No Education Education Given To: patient Education Provided: PT Role, PT Goals, Gait Training, Plan of Care, Precautions, Transfer Training, and Discharge Recommendations Education Method: Verbal Barriers to Learning: Cognition, Hearing Education Outcome: Verbalized Understanding and Continued Education Needed Goals Patient Stated Goal: to go to rehab Encounter Problems Encounter Problems (Active) Mobility Patient will ambulate 50 feet with modified independence and least restrictive device in order to improve safety and independence with mobility. Start: 08/01/23 Expected End: 08/15/23 Patient will ascend and descend 5-6 stairs with least restrictive device and modified independence in order to safely negotiate home. Start: 08/01/23 Expected End: 08/15/23 Pain - Adult Safety Patient will recall/demonstrate weight bearing and/or ROM restrictions with all functional mobility in order to promote healing and safety with functional tasks. Start: 08/01/23 Expected End: 08/15/23 Transfers Patient will perform bed mobility with modified independence in order to improve independence and prepare for out of bed mobility. Start: 08/01/23 Expected End: 08/15/23 Patient will complete functional transfer with least restrictive device with modified independence in order to prepare for ambulation. Start: 08/01/23 Expected End: 08/15/23 Therapy Time Individual Co-treatment Time In 1320 (one eval mod complex) Time Out 1340 Minutes 20 PT wore mask and gloves throughout entire session with patient. Geovanni Rosa PT Patient's Physical Therapy Plan of Care supervision is transferred to a [facility] Physical Therapist. Goals and/or treatment plan was established in collaboration with patient/family/other representatives. Images from the original note were not included. OCCUPATIONAL THERAPY [facility] Initial Evaluation Name/MRN: Tennille Sales ([id number]) Evaluation Date: 08/01/2023 Date of : 1935 Admission Date: 07/31/2023 5:47 AM Age: 88 y.o. Room/Bed: -6118/H-6118 A Discharge Recommendation: Assisted Facility Assessment IMPRESSION: Pt s/p lumbar decompression and fusion. Pt from home with with assist PRN from for ADL, IADLs, and mobility. Pt with fluctuating cognition throughout the eval which may have impacted baseline information. Pt requiring MAX to TOTAL assist for functional transfers this session and is not safe to return home. Recommend SNF therapies upon discharge to maximize functional independence. Pt indicated understanding of discharge recommendations Performance Deficits /Impairments: Increased Pain, Decreased Functional Mobility, Decreased ADL status, Decreased Safety Awareness, Decreased Cognition, Decreased Endurance, Decreased Balance, Decreased High Level IADLs, Decreased Coordination, and Decreased Posture Prognosis: Good Decision Making: Medium Complexity Subjective Pt in chair upon OT arrival. Agreeable and pleasant Pain: RN managing pain. Past Medical History: Past Medical History: Diagnosis Date Acute deep vein thrombosis (DVT) of popliteal vein of left lower extremity ([facility]) 11/18/2022 11/04/2022. xarelto x 3 months Arthritis Cancer ([facility]/HCC) ([facility]) BSC of nose History of elevated PSA Hyperlipidemia Hypertension Poison gt 11/22/2020 Umbilical hernia without obstruction or gangrene SCHEDULED FOR THE SURGERY ON 05/28 Viral URI with cough 04/11/2022 Past Surgical History: Past Surgical History: Procedure Laterality Date CATARACT EXTRACTION Right COLONOSCOPY HEMORRHOID SURGERY 1999 [facility] HERNIA REPAIR Right inguinal LAMINECTOMY 07/31/2023 L2, L3, L4, L5 laminectomy L4-L5 fusion NOSE SURGERY A KID UMBILICAL HERNIA REPAIR 05/28/2019 Admission Diagnosis: Patient Active Problem List Diagnosis Date Noted Lumbar stenosis with neurogenic claudication 07/31/2023 Dermatitis 04/03/2023 Bilateral lower extremity edema 04/03/2023 OAB (overactive bladder) 10/18/2022 Chronic rhinitis 10/18/2022 Post-nasal drainage 10/04/2022 Chronic renal disease, stage III ([facility]) 12/14/2021 Osteoarthritis of right hip 12/05/2021 Sebaceous cyst 12/05/2021 Rotator cuff tendinitis, left 07/05/2021 Trigger finger, left ring finger 01/05/2021 Greater trochanteric bursitis of right hip 10/10/2020 Hyperlipidemia 04/11/2020 Basal cell carcinoma of nose 10/07/2019 Prediabetes 12/27/2018 Elevated PSA, between 10 and less than 20 ng/ml 04/06/2018 Umbilical hernia without obstruction and without gangrene 04/06/2018 Allergic rhinitis 10/02/2017 Benign head tremor 02/27/2017 Urge incontinence 08/08/2016 Essential hypertension, benign 06/21/2016 Medical Precautions: No active isolations Proper PPE donned/doffed in accordance with facility standards. Fall Risk: Head Fall Risk Score: 60 (High Risk) Precautions/Restrictions: Fall precautions, up with assist WBAT Family/Caregiver Present: none Overall Cognitive Status: Exceptions - Following commands: follows one step commands with increased time and follows one step commands with repetition - Attention span: attends with cues to redirect and difficulty dividing attention - Memory: appears intact - Safety judgement: decreased awareness of need for assistance and decreased awareness of need for safety - Problem solving: assistance required to generate solutions and assistance required to implement solutions - Insights: decreased awareness of deficits - Initiation: requires cues for some - Sequencing: requires cues for some Overall Orientation Status: Oriented x4 Social/Functional History Patient admitted from home. Lives With: Spouse Type of Home: single family home Home Layout: Single Level Home, Laundry in Basement, and Able to Live on Main Level Home Access: Stairs to Enter with Rails (# of stairs: 8) Bathroom Shower/Tub: Tub/Shower Combo, Shower Chair with Back, and Grab Bars Toilet: Standard Home Equipment: front wheeled walker and cane Homemaking Responsibilities: Needs Assist Receives Help From: Spouse Active Business Banking Officer: N/A Prior Level of Function ADL Assistance: Needs Assist Ambulation Assistance: Needs Assistance Device(s) used: front wheeled walker Transfer Assistance: Needs Assist Objective ADLs LE Dressing: Mod Assist Toileting: Max Assist Not assessed this session Anticipate based on clinical observation of performance skill Upper Extremity Assessment AROM: WFL PROM: WFL Strength: WFL Vision: no visual deficits per pt report Hearing: impaired Bed Mobility NT d/t pt in chair at start and end of session Transfers/Functional Mobility Sit to stand: Max Assist Stand to sit: Max Assist Sitting balance: Independent Standing balance: Max Assist Device(s) used: none AM-PAC AM-PAC Inpatient Daily Activity Raw Score: 16 ADL Inpatient CMS G-Code Modifier: CK Plan Pt would benefit from skilled acute OT services to address Strengthening, Balance Training, Functional Mobility Training, Endurance Training, Pain Management, Safety Education and Training, Patient/Caregiver Training, Equipment Evaluation/Education, Self-Care/ADL Training, Home Management Training, and Cognitive/Perceptual Training. Frequency: 3x/week during current hospital admission or until additional recommendations are made Barriers: None Prognosis: good Safety/Education Safety Safety Devices in place: call light within reach, left in chair, patient at risk for falls, nurse notified, and no alarms engaged upon entry Restraints: No Education Education Given To: patient Education Provided: OT Role, Plan of Care, Discharge Recommendations, and Benefits of Increasing Activity Education Method: Verbal Barriers to Learning: None Education Outcome: Verbalized Understanding and Demonstrated Understanding Goals Patient Stated Goal: [facility] for therapy Encounter Problems Encounter Problems (Active) Balance Patient will maintain static standing balance for 5+ minutes with CGA in order to demonstrate decreased risk of falling. Start: 08/01/23 Dressings Lower Extremities Patient will dress lower body supervision Start: 08/01/23 Transfers Patient will complete functional transfer with least restrictive device with supervision in order to prepare for ambulation. Start: 08/01/23 Patient will perform bed mobility with supervision in order to improve independence and prepare for out of bed mobility. Start: 08/01/23 Therapy Time Individual Co-treatment Time In 1310 Time Out 1320 Minutes 10 Emely Ruiz OT Patient's Occupational Therapy Plan of Care supervision is transferred to a [facility] Occupational Therapist. Goals and/or treatment plan was established in collaboration with patient/family/other representatives. Images from the original note were not included. Hospitalist Progress Note 08/01/[phone]: Please page me ([phone]) for patient care issues. [phone]: Please page [facility] Hospitalist for any issues. Subjective: Admit Date: 07/31/2023 PCP: Hermann Damian MD Room#: H-2618/H-7773 A Interval History: No overnight issues. Denies chest pain or sob. No abdominal pain, nausea, vomiting. No fevers or chills. Adult diet Regular @[id number]@ 24HR INTAKE/OUTPUT: Intake/Output Summary (Last 24 hours) at 08/01/2023 0915 Last data filed at 08/01/2023 0740 Gross per 24 hour Intake 394.82 ml Output 2325 ml Net -1930.18 ml Past Medical History: Past Medical History: Diagnosis Date Acute deep vein thrombosis (DVT) of popliteal vein of left lower extremity (HCC) 11/18/2022 11/04/2022. xarelto x 3 months Arthritis Cancer (CMS/HCC) (HCC) BSC of nose History of elevated PSA Hyperlipidemia Hypertension Poison gt 11/22/2020 Umbilical hernia without obstruction or gangrene SCHEDULED FOR THE SURGERY ON 05/28 Viral URI with cough 04/11/2022 LABS: CBC: Recent Labs 08/01/23221 WBC 14.6* RBC 4.35* HGB 12.8* HCT 38.6* MCV 88.7 RDW 13.3 PLT 219 BMP: Recent Labs 08/01/23221 NA 136 K 4.9 CL 103 CO2 26 BUN 26* CREATININE 1.39* GLUCOSE 141* CALCIUM 8.6 ANIONGAP 6 LIVER PROFILE: Recent Labs 08/01/23221 AST 30 ALT 20 BILITOT 0.7 ALKPHOS 64 PROT 6.3 PT/INR: Recent Labs 08/01/23221 PROTIME 10.8 INR 1.0 CARDIAC ENZYMES: No results for input(s): TROPONINI in the last 72 hours. Procalcitonin: No results found for: PROCAL COVID-19 PCR: No results for input(s): COVID19 in the last 72 hours. Objective: Vitals: BP (!) 176/105 (BP Location: Right arm, Patient Position: Lying) Pulse 98 Temp 36.8 C (98.2 F) (Temporal) Resp 16 SpO2 95% Pulse Ox: SpO2 Av.5 % Min: 88 % Max: 100 % Supplemental O2: O2 Flow Rate (L/min): 2 L/min General appearance: No apparent distress, appears stated age, HEENT: Eyes: No scleral icterus Oral: Tongue is semi-moist Cardiovascular: S1/S2 heard, RRR Respiratory: Clear to auscultation bilaterally Abdomen: Soft, non-tender, non-distended bowel sounds positive Musculoskeletal: No obvious deformities seen Skin: No visible rashes or lesions. Medications: sodium chloride, 75 mL/hr, Last Rate: 75 mL/hr (07/31/23 1540) cetirizine, 10 mg, Oral, Daily docusate sodium, 100 mg, Oral, BID famotidine, 20 mg, IntraVENous, 2 times per day Lidocaine, 1 patch, Topical, Daily polyethylene glycol (PEG) 3350, 17 g, Oral, Daily sodium chloride 0.9%, 10 mL, IntraVENous, 2 times per day trospium, 20 mg, Oral, Daily valsartan, 40 mg, Oral, Daily Assessment Acute, acute on chronic, unstable/uncontrolled chronic problems/diagnoses: # Lumbar spinal stenosis/spondylosis--status post L2, L3, L4, L5 laminectomy, L4-L5 fusion done on 07/31/2023 # Mild anemia post op - likely due to mild blood loss and IVF dilution # Leukocytosis post op - likely due to intra-op steroids. # DVT proph: SCDs Stable chronic problems affecting care, new non-acute diagnoses: Hypertension Elevated PSA Chronic kidney disease stage III with baseline creatinine 1.4-1.5 - at baseline. DVT of left leg, completed anticoagulation Plan -BP high this am but was taken before getting BP meds. Also likely contributed by post op pain. Already has PRN hydralazine as well. Will monitor. Rest of vitals/labs are okay. -PT/OT eval pending. -will continue to follow with you for medical management. Extended Emergency Contact Information Primary Emergency Contact: Manju Sales Relation: Spouse JAMES SIMPSON MD Division of Hospitalist Medicine Inpatient Medical Services/[facility] [place] PAGER: Epic chat Department of Neurosurgery Progress Note Chief Complaint: lumbar stenosis SUBJECTIVE: s/p lumbar decompression and fusion. Pt complaining of belching/burning and unable to sleep overnight. States his legs feels great. Has incisional pain. No sign of Homans sign or LE DVT. Lopez removed. No sign of CSF leak-denies ESTEVEZ OBJECTIVE Physical BP (!) 176/105 (BP Location: Right arm, Patient Position: Lying) Pulse 98 Temp 36.8 C (98.2 F) (Temporal) Resp 16 SpO2 95% NEUROLOGIC: A&O x3 [place] BLE 5/5 strength Sensation intact Drain intact with sanguinous drainage. 260 ml out since surgery, 75 ml just removed from bulb Dressing C/D/I ASSESSMENT AND PLAN 88 y.o. male status post lumbar decompression and fusion post op day #1 Pt progressing as expected Activity increase to up with assist BP elevated this am-lopez just removed Appreciate medicines recommendations Continue to work with PT/OT Pending PT recommendations and drain output-plan for DC in 1-2 days Chart review completed in order to place pre operative orders for anesthesia. 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 Labs: Lab Results Component Value Date WBC 7.6 07/23/2023 HGB 14.6 07/23/2023 HCT 44.4 07/23/2023 MCV 88.8 07/23/2023 PLT 191 07/23/2023 Lab Results Component Value Date NA 140 07/23/2023 K 4.3 07/23/2023 CL 106 07/23/2023 CO2 25 07/23/2023 BUN 28 (H) 07/23/2023 CREATININE 1.64 (H) 07/23/2023 GLUCOSE 102 (H) 07/23/2023 CALCIUM 9.1 07/23/2023 PROT 6.8 04/10/2023 BILITOT 0.7 04/10/2023 ALKPHOS 73 04/10/2023 AST 13 04/10/2023 ALT 12 04/10/2023 AGRATIO 1.6 04/10/2023 GLOB 2.6 04/10/2023 Past Medical History: Past Medical History: Diagnosis Date Acute deep vein thrombosis (DVT) of popliteal vein of left lower extremity (HCC) 11/18/2022 11/04/2022. xarelto x 3 months Arthritis Cancer (CMS/HCC) (HCC) BSC of nose History of elevated PSA Hyperlipidemia Hypertension Poison gt 11/22/2020 Umbilical hernia without obstruction or gangrene SCHEDULED FOR THE SURGERY ON 05/28 Viral URI with cough 04/11/2022 Past Surgical History: Past Surgical History: Procedure Laterality Date CATARACT EXTRACTION Right COLONOSCOPY HEMORRHOID SURGERY 1999 [facility] HERNIA REPAIR Right inguinal NOSE SURGERY A KID UMBILICAL HERNIA REPAIR 05/28/2019 Medications Prior to Admission: Prior to Admission medications Medication Sig Start Date End Date Taking? Authorizing Provider ibuprofen 200 MG tablet Take 600 mg by mouth every 8 hours as needed. Historical Provider, Loratadine (CLARITIN PO) Take by mouth daily. Historical Provider, oxybutynin XL (Ditropan-XL) 10 MG 24 hr tablet Take 10 mg by mouth daily. 02/11/22 Historical Provider, tiZANidine (Zanaflex) 4 MG capsule Take 4 mg by mouth 2 times daily as needed for muscle spasms. Historical Provider, triamterene-hydrochlorothiazide (Maxzide-25) 37.5-25 MG tablet Take 1 tablet by mouth daily. Patient not taking: Reported on 06/18/2023 04/10/23 Hermann Damian MD valsartan (Diovan) 40 MG tablet Take 1 tablet (40 mg) by mouth daily. 05/26/23 Hermann Damian MD Allergies: Hydrocodone and Seasonal ic [cholestatin] Social History: TOBACCO: reports that he has never smoked. He has never used smokeless tobacco. ETOH: reports current alcohol use. Social History Substance and Sexual Activity Drug Use No Family History: Family History Problem Relation Name Age of Onset Heart disease Mother Cancer Father documented in this encounter [facility] 08-05-2023 Note Formatting of this n ote might be different from the original. Discharge order noted for [facility]. DATA ANALYST ETL DEVELOPER tasked to send discharge paperwork to [facility]. sewage disposal worker aware of need to transport. [facility] 08-05-2023 Note Formatting of this n ote might be different from the original. Discharge order noted for [facility]. DATA ANALYST ETL DEVELOPER tasked to send discharge paperwork to [facility]. sewage disposal worker aware of need to transport. [facility] 08-05-2023 Telephone encounter Note Pt still inpatient at this time. Pt scheduled for [place] 08/19/23 at 0930. [facility] 08-05-2023 Miscellaneous Notes Pt still inpatient at this time. Pt scheduled for [place] 08/19/23 at 0930. Patient was seen on 08/01 w/ urinary retention after a spinal injury. Was retaining 1L urine. Will go to rehab today. Needs OP follow up for void trial. Thanks! Jayme Terrazas MD PGY-1 Urology 08/05/23 documented in this encounter [facility] 08-05-2023 Note Formatting of this n ote might be different from the original. Patient remains on H6 s/p decompression/fusion 07/31/2023. Reg diet noted. Lopez noted, patient to discharge with lopez per Urology. PT/OT following, recommending IPR. [facility] able to accept. Insurance auth obtained. Neuro PA-C secure message regarding discharge. TCC to assist and follow as needed. T [facility] 08-05-2023 Note Formatting of this n ote might be different from the original. Patient remains on H6 s/p decompression/fusion 07/31/2023. Reg diet noted. Lopez noted, patient to discharge with lopez per Urology. PT/OT following, recommending IPR. [facility] able to accept. Insurance auth obtained. Neuro PA-C secure message regarding discharge. TCC to assist and follow as needed. [facility] 08-05-2023 Telephone encounter Note Patient was seen on 08/01 w/ urinary retention after a spinal injury. Was retaining 1L urine. Will go to rehab today. Needs OP follow up for void trial. Thanks! Jayme Terrazas MD PGY-1 Urology 08/05/23 [facility] 08-04-2023 Plan of care note Problem: Pain - Adult Goal: Verbalizes/displays adequate comfort level or baseline comfort level 08/04/[id number] by Arti Millan RN Outcome: Progressing Problem: Safety - Adult Goal: Free from fall injury 08/04/[id number] by Arti Millan RN Outcome: Progressing [facility] 08-04-2023 Note Formatting of this n ote might be different from the original. Per RN, she and family members discussed transportation modes and it was determined that pt does required ambulance transport to transfer to [facility]. Completed ambulance form placed on pt chart. [facility] 08-04-2023 Note Formatting of this n ote might be different from the original. Per RN, she and family members discussed transportation modes and it was determined that pt does required ambulance transport to transfer to [facility]. Completed ambulance form placed on pt chart. [facility] 08-04-2023 Note Formatting of this n ote might be different from the original. Approval from [facility] for patient to go to [facility]. Neuro aware, patient has lopez in place per Urology. [facility] made aware that patient will transfer tomorrow. Patient aware. TCC to assist and follow as needed. [facility] 08-04-2023 Note Formatting of this n ote might be different from the original. Approval from [facility] for patient to go to [facility]. Neuro aware, patient has lopez in place per Urology. [facility] made aware that patient will transfer tomorrow. Patient aware. TCC to assist and follow as needed. [facility] 08-04-2023 Plan of care note Problem: Pain - Adult Goal: Verbalizes/displays adequate comfort level or baseline comfort level Outcome: Progressing Flowsheets (Taken 08/04/2023 1104) Verbalizes/displays adequate comfort level or baseline comfort level: Encourage patient to monitor pain and request assistance Assess pain using appropriate pain scale Problem: Safety - Adult Goal: Free from fall injury Outcome: Progressing Flowsheets (Taken 08/04/2023 1104) Free from fall injury: Instruct family/caregiver on patient safety Based on caregiver fall risk screen, instruct family/caregiver to ask for assistance with transferring infant if caregiver noted to have fall risk factors [facility] 08-04-2023 Note Formatting of this n ote might be different from the original. [facility] T[facility] request. Await review and response regarding ability to accept. TCC notified. [facility] 08-04-2023 Note Formatting of this n ote might be different from the original. Face [facility] per TCC request. Await review and response regarding ability to accept. TCC notified. T [facility] 08-04-2023 Note Formatting of this n ote is different from the original. Images from the original note were not included. Care Management Progress Note Patient remains on H6 s/p decompression/fusion 07/31/2023. Reg diet noted. Lopez noted. PT/OT following, recommending IPR. [facility] able to accept. TCC to assist and follow as needed. Discharge Milestones and Delays Expected Date/Time: 08/05/[address] discharge order Complete med reconciliation Case mgmt discharge readiness Clinical Stability Diagnsotic Workup Expected Discharge History Expected Date/Time Set By Reviewed At 08/05/2023 Zoë Trimble RN 08/04/2023 8:58 AM 08/02/2023 Zoë Trimble RN 08/01/2023 9:27 AM 08/02/2023 KALLIE Che CNP 07/31/2023 3:03 PM 08/02/2023 KALLIE Che CNP 07/31/2023 11:13 AM 08/02/2023 KALLIE Che CNP 07/31/2023 6:16 AM Length of Stay (Days): 4 GMLOS: No GMLOS Documented [facility] 08-04-2023 Note Formatting of this n ote is different from the original. Images from the original note were not included. Care Management Progress Note Patient remains on H6 s/p decompression/fusion 07/31/2023. Reg diet noted. Lopez noted. PT/OT following, recommending IPR. [facility] able to accept. TCC to assist and follow as needed. Discharge Milestones and Delays Expected Date/Time: 08/05/[address] discharge order Complete med reconciliation Case mgmt discharge readiness Clinical Stability Diagnsotic Workup Expected Discharge History Expected Date/Time Set By Reviewed At 08/05/2023 Zoë Trimble RN 08/04/2023 8:58 AM 08/02/2023 Zoë Trimble RN 08/01/2023 9:27 AM 08/02/2023 KALLIE Che CNP 07/31/2023 3:03 PM 08/02/2023 KALLIE Che CNP 07/31/2023 11:13 AM 08/02/2023 KALLIE Che CNP 07/31/2023 6:16 AM Length of Stay (Days): 4 GMLOS: No GMLOS Documented [facility] 08-02-2023 Consult note Associated Order (s): IP CONSULT TO UROLOGY Urology Inpatient Consultation Patient Name: Ciro Sales Date of : 1935 Admission Date: 07/31/2023 5:47 AM Today's Date: 08/02/2023 Reason for consultation: urinary retention Chief complaint: lumbar stenosis with neurogenic claudication HISTORY OF PRESENT ILLNESS: The patient is a 88 y.o. male seen in the past by Dr. Bustamante and Dr. Herrera for prostatitis, BPH and elevated PSA (last was 10.66, stable in 2020) presents as consult for urinary retention after failing voiding trial s/p lumbar spine surgery for neurogenic claudication on 07/30. His catheter was replaced for ~ 1L. Prior to this, he was voiding. He states he sees a urologist in [place] who put him on a generic version of flomax. He felt like he was doing okay at home. He denies gross hematuria or flank pain. He is not having regular bowel movements. PAST MEDICAL HISTORY: Past Medical History: Diagnosis Date Acute deep vein thrombosis (DVT) of popliteal vein of left lower extremity (HCC) 11/18/2022 11/04/2022. xarelto x 3 months Arthritis Cancer ([facility]/HCC) ([facility]) BSC of nose History of elevated PSA Hyperlipidemia Hypertension Poison gt 11/22/2020 Umbilical hernia without obstruction or gangrene SCHEDULED FOR THE SURGERY ON 05/28 Viral URI with cough 04/11/2022 PAST SURGICAL HISTORY: Past Surgical History: Procedure Laterality Date CATARACT EXTRACTION Right COLONOSCOPY HEMORRHOID SURGERY 1999 [facility] HERNIA REPAIR Right inguinal LAMINECTOMY 07/31/2023 L2, L3, L4, L5 laminectomy L4-L5 fusion NOSE SURGERY A KID UMBILICAL HERNIA REPAIR 05/28/2019 ALLERGIES: Hydrocodone and Seasonal ic [cholestatin] CURRENT MEDICATIONS: Current Facility-Administered Medications: bisacodyl (Dulcolax) EC tablet 5 mg, 5 mg, Oral, Daily PRN, Yuliya A Orosz, SCIENCE J[employer]IT[employer] - AQUATICS MANAGER, 5 mg at 08/02/23 1420 bisacodyl (Dulcolax) suppository 10 mg, 10 mg, Rectal, Daily PRN, Yuliya A Orosz, SCIENCE JOB TITLES - AQUATICS MANAGER, 10 mg at 08/01/23 1015 cetirizine (ZyrTEC) tablet 10 mg, 10 mg, Oral, Daily, Yuliya A Orosz, SCIENCE JOB TITLES - AQUATICS MANAGER, 10 mg at 08/01/232031 docusate sodium (Colace) capsule 100 mg, 100 mg, Oral, BID, Yuliya A Orosz, SCIENCE JOB TITLES - AQUATICS MANAGER, 100 mg at 08/02/23 0954 famotidine (Pepcid) tablet 20 mg, 20 mg, Oral, BID, James Simpson MD, 20 mg at 08/02/23 1418 hydrALAZINE (Apresoline) injection 10 mg, 10 mg, IntraVENous, q6h PRN, Zhang Brasher MD Lidocaine 4 % patch 1 patch, 1 patch, Topical, Daily, Yuliya Leblanc Orosz, SCIENCE J[employer] TIT[employer] - AQUATICS MANAGER, 1 patch at 08/02/23 0957 morphine injection 2 mg, 2 mg, IntraVENous, q2h PRN, 2 mg at 08/01/232031 OR morphine injection 4 mg, 4 mg, IntraVENous, q2h PRN, Yuliya Leblanc Orosz, SCIENCE J[employer] TITLES - AQUATICS MANAGER naloxone (Narcan) injection 0.4 mg, 0.4 mg, IntraVENous, q5 min PRN, Ta Young MD ondansetron ODT (Zofran-ODT) disintegrating tablet 4 mg, 4 mg, Oral, q8h PRN OR ondansetron (Zofran) injection 4 mg, 4 mg, IntraVENous, q6h PRN, Yuliya Ernstsz, SCIENCE J[employer] T[employer] - AQUATICS MANAGER oxyCODONE-acetaminophen (Percocet) 5-325 MG per tablet 1 tablet, 1 tablet, Oral, q4h PRN OR oxyCODONE-acetaminophen (Percocet) 5-325 MG per tablet 2 tablet, 2 tablet, Oral, q4h PRN, Yuliya Leblanc Orosz, SCIENCE J[employer] T[employer] - AQUATICS MANAGER, 2 tablet at 08/01/23 1858 polyethylene glycol (PEG) 3350 (Miralax) packet 17 g, 17 g, Oral, Daily, Yuliya Leblanc Orosz, SCIENCE JOB TITLES - AQUATICS MANAGER, 17 g at 08/02/23 0954 simethicone (Mylicon) chewable tablet 80 mg, 80 mg, Oral, 4x daily PRN, Juan Francisco Sears MD, 80 mg at 08/01/23 0811 sodium chloride 0.9 % infusion, 5-250 mL/hr, IntraVENous, PRN, Yuliya Leblanc Orosz, SCIENCE J[employer] T[employer] - AQUATICS MANAGER sodium chloride 0.9% (NS) flush 10 mL, 10 mL, IntraVENous, 2 times per day, Yuliya Leblanc Orosz, SCIENCE JOB TITLES - AQUATICS MANAGER, 10 mL at 08/01/232030 sodium chloride 0.9% (NS) flush 10 mL, 10 mL, IntraVENous, PRN, Yuliya Leblanc Orosz, SCIENCE JOB TITLES - AQUATICS MANAGER tamsulosin (Flomax) 24 hr capsule 0.4 mg, 0.4 mg, Oral, Daily, James Simpson MD, 0.4 mg at 08/02/23 1417 tiZANidine (Zanaflex) tablet 4 mg, 4 mg, Oral, q8h PRN, Yuliya Leblanc Orosz, SCIENCE JOB [employer] - AQUATICS MANAGER, 4 mg at 08/01/23 1858 valsartan (Diovan) tablet 40 mg, 40 mg, Oral, Daily, Zhang Brasher MD, 40 mg at 08/02/23 0954 FAMILY HISTORY: Family History Problem Relation Name Age of Onset Heart disease Mother Cancer Father Social History: Social History Tobacco Use Smoking status: Never Smokeless tobacco: Never Substance Use Topics Alcohol use: Yes Comment: 3-4 per year ROS: Constitutional: negative for chills and fevers HEENT: no blurry vision or eye redness Respiratory: negative for hemoptysis and shortness of breath Cardiovascular: negative for dyspnea and syncope Gastrointestinal: negative for jaundice, nausea and vomiting Genitourinary:negative for dysuria and hematuria, + urinary retention Hematologic/lymphatic: negative for bleeding Integumentary: no new bruises or lesions Musculoskeletal:negative for muscle weakness Neurological: negative for coordination problems and seizures All other systems negative Physical Exam: Vitals: Vitals: 08/01/23 2050 08/02/23 0535 08/02/23 0821 08/02/23 1244 BP: (!) 178/105 135/82 148/80 141/73 BP Location: Right arm Right arm Patient Position: Lying Lying Pulse: 95 77 81 89 Resp: 20 16 18 16 Temp: 37.1 C (98.7 F) 36.8 C (98.3 F) 37.4 C (99.4 F) 37.7 C (99.8 F) TempSrc: Temporal Temporal Temporal Temporal SpO2: 92% 93% 94% 97% General: Alert, in no acute distress Head: Normocephalic, atraumatic Neck: supple, trachea is midline, no obvious masses Respiratory: normal effort Cardiovascular: regular pulse, no extremity edema Musculoskeletal: moving all 4 extremities Skin: warm and dry Psych: normal mood and affect; appropriate judgement and insight Abdomen: soft, non distended, non tender : lopez draining yellow urine DATA: LABS: BMP: Lab Results Component Value Date GLUCOSE 141 (H) 08/01/2023 CALCIUM 8.6 08/01/2023 NA 136 08/01/2023 K 4.9 08/01/2023 CO2 26 08/01/2023 CL 103 08/01/2023 BUN 26 (H) 08/01/2023 CREATININE 1.39 (H) 08/01/2023 CBC: Lab Results Component Value Date WBC 14.6 (H) 08/01/2023 HGB 12.8 (L) 08/01/2023 HCT 38.6 (L) 08/01/2023 MCV 88.7 08/01/2023 PLT 219 08/01/2023 Urinalysis: reviewed Urine Culture: No components found for: LABURIN RADIOLOGY: N/a IMPRESSION: 88 y.o. male with urinary retention after spinal surgery PLAN: - Void trial prior to discharge. Page electronic page makeup system operator resident drier tender of anticipated discharge for void trial instructions - Start Flomax - Agree with discontinuing ditropan for now, as this can contribute to retention - Bowel regimen per primary service - Cr appears near baseline - Follow up with Urology as outpatient Thank you for allowing me to participate in the care of your patient ANGELA AYALA MD Urology PGY3 08/02/23 5:33 PM - Page electronic page makeup system operator resident with questions. Associated attestation - Conrad Herrera MD - 08/03/2023 11:49 AM EDT I saw and evaluated the patient, participating in the quick portions of the service. I reviewed the resident s note. I agree with the resident s findings and plan. Conrad Herrera MD [facility] [employer] Work Phone: 08-02-2023 Consult note Associated Order (s): IP CONSULT TO UROLOGY Urology Inpatient Consultation Patient Name: Ciro Sales Date of : 1935 Admission Date: 07/31/2023 5:47 AM Today's Date: 08/02/2023 Reason for consultation: urinary retention Chief complaint: lumbar stenosis with neurogenic claudication HISTORY OF PRESENT ILLNESS: The patient is a 88 y.o. male seen in the past by Dr. Bustamante and Dr. Herrera for prostatitis, BPH and elevated PSA (last was 10.66, stable in 2020) presents as consult for urinary retention after failing voiding trial s/p lumbar spine surgery for neurogenic claudication on 07/30. His catheter was replaced for ~ 1L. Prior to this, he was voiding. He states he sees a urologist in [place] who put him on a generic version of flomax. He felt like he was doing okay at home. He denies gross hematuria or flank pain. He is not having regular bowel movements. PAST MEDICAL HISTORY: Past Medical History: Diagnosis Date Acute deep vein thrombosis (DVT) of popliteal vein of left lower extremity (HCC) 11/18/2022 11/04/2022. xarelto x 3 months Arthritis Cancer ([facility]/HCC) ([facility]) BSC of nose History of elevated PSA Hyperlipidemia Hypertension Poison gt 11/22/2020 Umbilical hernia without obstruction or gangrene SCHEDULED FOR THE SURGERY ON 05/28 Viral URI with cough 04/11/2022 PAST SURGICAL HISTORY: Past Surgical History: Procedure Laterality Date CATARACT EXTRACTION Right COLONOSCOPY HEMORRHOID SURGERY 1999 [facility] HERNIA REPAIR Right inguinal LAMINECTOMY 07/31/2023 L2, L3, L4, L5 laminectomy L4-L5 fusion NOSE SURGERY A KID UMBILICAL HERNIA REPAIR 05/28/2019 ALLERGIES: Hydrocodone and Seasonal ic [cholestatin] CURRENT MEDICATIONS: Current Facility-Administered Medications: bisacodyl (Dulcolax) EC tablet 5 mg, 5 mg, Oral, Daily PRN, Yuliya A Orosz, SCIENCE JOB TITLES - AQUATICS MANAGER, 5 mg at 08/02/23 1420 bisacodyl (Dulcolax) suppository 10 mg, 10 mg, Rectal, Daily PRN, Yuliya A Orosz, SCIENCE JOB TITLES - AQUATICS MANAGER, 10 mg at 08/01/23 1015 cetirizine (ZyrTEC) tablet 10 mg, 10 mg, Oral, Daily, Yuliya A Orosz, SCIENCE JOB TITLES - AQUATICS MANAGER, 10 mg at 08/01/232031 docusate sodium (Colace) capsule 100 mg, 100 mg, Oral, BID, Yuliya A Orosz, SCIENCE JOB TITLES - AQUATICS MANAGER, 100 mg at 08/02/23 0954 famotidine (Pepcid) tablet 20 mg, 20 mg, Oral, BID, James Simpson MD, 20 mg at 08/02/23 1418 hydrALAZINE (Apresoline) injection 10 mg, 10 mg, IntraVENous, q6h PRN, Zhang Brasher MD Lidocaine 4 % patch 1 patch, 1 patch, Topical, Daily, Yuliya A Orosz, SCIENCE JOB TITLES - AQUATICS MANAGER, 1 patch at 08/02/23 0957 morphine injection 2 mg, 2 mg, IntraVENous, q2h PRN, 2 mg at 08/01/232031 OR morphine injection 4 mg, 4 mg, IntraVENous, q2h PRN, Yuliya A Orosz, SCIENCE JOB TITLES - AQUATICS MANAGER naloxone (Narcan) injection 0.4 mg, 0.4 mg, IntraVENous, q5 min PRN, Ta Young MD ondansetron ODT (Zofran-ODT) disintegrating tablet 4 mg, 4 mg, Oral, q8h PRN OR ondansetron (Zofran) injection 4 mg, 4 mg, IntraVENous, q6h PRN, Yuliya A Orosz, SCIENCE JOB TITLES - AQUATICS MANAGER oxyCODONE-acetaminophen (Percocet) 5-325 MG per tablet 1 tablet, 1 tablet, Oral, q4h PRN OR oxyCODONE-acetaminophen (Percocet) 5-325 MG per tablet 2 tablet, 2 tablet, Oral, q4h PRN, Yuliya A Orosz, SCIENCE JOB TITLES - AQUATICS MANAGER, 2 tablet at 08/01/23 1858 polyethylene glycol (PEG) 3350 (Miralax) packet 17 g, 17 g, Oral, Daily, Yuliya A Orosz, SCIENCE JOB TITLES - AQUATICS MANAGER, 17 g at 08/02/23 0954 simethicone (Mylicon) chewable tablet 80 mg, 80 mg, Oral, 4x daily PRN, Juan Francisco Sears MD, 80 mg at 08/01/23 0811 sodium chloride 0.9 % infusion, 5-250 mL/hr, IntraVENous, PRN, Yuliya A Orosz, SCIENCE JOB TITLES - AQUATICS MANAGER sodium chloride 0.9% (NS) flush 10 mL, 10 mL, IntraVENous, 2 times per day, Yuliya Leblanc Orosyulia, SCIENCE JOB TITLES - AQUATICS MANAGER, 10 mL at 08/01/232030 sodium chloride 0.9% (NS) flush 10 mL, 10 mL, IntraVENous, PRN, Yuliya Leblanc Orosz, SCIENCE JOB TITLES - AQUATICS MANAGER tamsulosin (Flomax) 24 hr capsule 0.4 mg, 0.4 mg, Oral, Daily, James Simpson MD, 0.4 mg at 08/02/23 1417 tiZANidine (Zanaflex) tablet 4 mg, 4 mg, Oral, q8h PRN, Yuliya Diaz SCIENCE JOB TITLES - AQUATICS MANAGER, 4 mg at 08/01/23 1858 valsartan (Diovan) tablet 40 mg, 40 mg, Oral, Daily, Zhang Brasher MD, 40 mg at 08/02/23 0954 FAMILY HISTORY: Family History Problem Relation Name Age of Onset Heart disease Mother Cancer Father Social History: Social History Tobacco Use Smoking status: Never Smokeless tobacco: Never Substance Use Topics Alcohol use: Yes Comment: 3-4 per year ROS: Constitutional: negative for chills and fevers HEENT: no blurry vision or eye redness Respiratory: negative for hemoptysis and shortness of breath Cardiovascular: negative for dyspnea and syncope Gastrointestinal: negative for jaundice, nausea and vomiting Genitourinary:negative for dysuria and hematuria, + urinary retention Hematologic/lymphatic: negative for bleeding Integumentary: no new bruises or lesions Musculoskeletal:negative for muscle weakness Neurological: negative for coordination problems and seizures All other systems negative Physical Exam: Vitals: Vitals: 08/01/230 08/02/23 0535 08/02/23 0821 08/02/23 1244 BP: (!) 178/105 135/82 148/80 141/73 BP Location: Right arm Right arm Patient Position: Lying Lying Pulse: 95 77 81 89 Resp: 20 16 18 16 Temp: 37.1 C (98.7 F) 36.8 C (98.3 F) 37.4 C (99.4 F) 37.7 C (99.8 F) TempSrc: Temporal Temporal Temporal Temporal SpO2: 92% 93% 94% 97% General: Alert, in no acute distress Head: Normocephalic, atraumatic Neck: supple, trachea is midline, no obvious masses Respiratory: normal effort Cardiovascular: regular pulse, no extremity edema Musculoskeletal: moving all 4 extremities Skin: warm and dry Psych: normal mood and affect; appropriate judgement and insight Abdomen: soft, non distended, non tender : lopez draining yellow urine DATA: LABS: BMP: Lab Results Component Value Date GLUCOSE 141 (H) 08/01/2023 CALCIUM 8.6 08/01/2023 NA 136 08/01/2023 K 4.9 08/01/2023 CO2 26 08/01/2023 CL 103 08/01/2023 BUN 26 (H) 08/01/2023 CREATININE 1.39 (H) 08/01/2023 CBC: Lab Results Component Value Date WBC 14.6 (H) 08/01/2023 HGB 12.8 (L) 08/01/2023 HCT 38.6 (L) 08/01/2023 MCV 88.7 08/01/2023 PLT 219 08/01/2023 Urinalysis: reviewed Urine Culture: No components found for: LABURIN RADIOLOGY: N/a IMPRESSION: 88 y.o. male with urinary retention after spinal surgery PLAN: - Void trial prior to discharge. Page electronic page makeup system operator resident drier tender of anticipated discharge for void trial instructions - Start Flomax - Agree with discontinuing ditropan for now, as this can contribute to retention - Bowel regimen per primary service - Cr appears near baseline - Follow up with Urology as outpatient Thank you for allowing me to participate in the care of your patient ANGELA AYALA MD Urology PGY3 08/02/23 5:33 PM - Page electronic page makeup system operator resident with questions. Associated attestation - Conrad Herrera MD - 08/03/2023 11:49 AM EDT I saw and evaluated the patient, participating in the qiuck portions of the service. I reviewed the resident s note. I agree with the resident s findings and plan. Conrad Herrera MD Images from the original note were not included. [facility] Medicine Consult Admit Date: 07/31/2023 PCP: Hermann Damian MD Reason for consult : Medical management History Obtained From: patient/family present at bedside LEONA Tanner is a 88 y.o. male with past medical history -hypertension, elevated PSA follow-up with urology team, history of DVT of left popliteal vein completed anticoagulation 3 months back according to family, CKD stage III with baseline creatinine of 1.4-1.5 Patient had L2, L3, L4, L5 laminectomy, L4-L5 fusion for lumbar spondylosis/stenosis today. Patient denies any chest pain, shortness of breath, cough No nausea, vomiting, abdominal pain No fever spike noted Blood pressure 114/79 Past Medical History: Past Medical History: Diagnosis Date Acute deep vein thrombosis (DVT) of popliteal vein of left lower extremity (HCC) 11/18/2022 11/04/2022. xarelto x 3 months Arthritis Cancer (CMS/HCC) (HCC) BSC of nose History of elevated PSA Hyperlipidemia Hypertension Poison gt 11/22/2020 Umbilical hernia without obstruction or gangrene SCHEDULED FOR THE SURGERY ON 05/28 Viral URI with cough 04/11/2022 Past Surgical History: Past Surgical History: Procedure Laterality Date CATARACT EXTRACTION Right COLONOSCOPY HEMORRHOID SURGERY 1999 [facility] HERNIA REPAIR Right inguinal LAMINECTOMY 07/31/2023 L2, L3, L4, L5 laminectomy L4-L5 fusion NOSE SURGERY A KID UMBILICAL HERNIA REPAIR 05/28/2019 Social History: Social History Socioeconomic History Marital status: Spouse name: Not on file Number of children: Not on file Years of education: Not on file Highest education level: Not on file Occupational History Not on file Tobacco Use Smoking status: Never Smokeless tobacco: Never Vaping Use Vaping Use: Never used Substance and Sexual Activity Alcohol use: Yes Comment: 3-4 per year Drug use: No Sexual activity: Not Currently Other Topics Concern Not on file Social History Narrative Not on file Social Determinants of Health Financial Resource Strain: Low Risk (04/10/2023) Overall Financial Resource Strain (CARDIA) Difficulty of Paying Living Expenses: Not very hard Food Insecurity: No Food Insecurity (04/10/2023) Hunger Vital Sign Worried About Running Out of Food in the Last Year: Never true Ran Out of Food in the Last Year: Never true Transportation Needs: No Transportation Needs (04/10/2023) PRAPARE - Transportation Lack of Transportation (Medical): No Lack of Transportation (Non-Medical): No Physical Activity: Insufficiently Active (04/10/2023) Exercise Vital Sign Days of Exercise per Week: 1 day Minutes of Exercise per Session: 20 min Stress: Not on file Social Connections: Not on file Intimate Partner Violence: Not on file Housing Stability: Not on file Family History: Family History Problem Relation Name Age of Onset Heart disease Mother Cancer Father Medications Prior to Admission: No current facility-administered medications on file prior to encounter. Current Outpatient Medications on File Prior to Encounter Medication Sig Dispense Refill ibuprofen 200 MG tablet Take 600 mg by mouth every 8 hours as needed. Loratadine (CLARITIN PO) Take by mouth daily. oxybutynin XL (Ditropan-XL) 10 MG 24 hr tablet Take 10 mg by mouth daily. tiZANidine (Zanaflex) 4 MG capsule Take 4 mg by mouth 2 times daily as needed for muscle spasms. triamterene-hydrochlorothiazide (Maxzide-25) 37.5-25 MG tablet Take 1 tablet by mouth daily. (Patient not taking: Reported on 06/18/2023) 30 tablet 0 valsartan (Diovan) 40 MG tablet Take 1 tablet (40 mg) by mouth daily. 90 tablet 1 Allergies: Allergies Allergen Reactions Hydrocodone Other Swelling of LEs Seasonal Ic [Cholestatin] Other sinus REVIEW OF SYSTEMS: 10 System was reviewed, positive findings as given in history of presenting illness, rest of the system reviewed was negative Vitals: BP 114/79 Pulse 90 Temp 36.8 C (98.2 F) (Temporal) Resp 16 SpO2 95% Pulse Ox: SpO2 Av.2 % Min: 88 % Max: 100 % Supplemental O2: O2 Flow Rate (L/min): 3 L/min PHYSICAL EXAM: General appearance: No apparent distress, HEENT: Eyes: No scleral icterus Pallor noted Obese male Oral: Tongue is semi-moist Cardiovascular: S1/S2 heard, RRR Respiratory: Clear to auscultation bilaterally Abdomen: Soft, non-tender, non-distended bowel sounds positive,no mass palpable Extremity: no significant peripheral edema both lower extremities Neurology:Awake , alert, answering questions appropriately Musculoskeletal: Lumbar spine dressing noted, DAVID drain noted DATA: CBC: No results for input(s): WBC, RBC, HGB, HCT, MCV, RDW, PLT in the last 72 hours. BMP:No results for input(s): NA, K, CL, CO2, BUN, CREATININE, GLUCOSE, CALCIUM, ANIONGAP in the last 72 hours. LIVER PROFILE:No results for input(s): AST, ALT, BILITOT, ALKPHOS, PROT in the last 72 hours. No lab exists for component: LABALBU PT/INR: No results for input(s): PROTIME, INR in the last 72 hours. CARDIAC ENZYMES: No results for input(s): TROPONINI in the last 72 hours. Procalcitonin: No results found for: PROCAL Urine Culture: No results found for this or any previous visit. COVID-19 PCR: No results for input(s): COVID19 in the last 72 hours. I reviewed: [x] laboratory results [x] radiographic results At the time of today's encounter. Pt was informed about the results. IMAGING: See report I reviewed: [x] laboratory results [x] radiographic results At the time of today's encounter. Pt was advised of the results. IMPRESSION: Acute problems-- Lumbar spinal stenosis/spondylosis--status post L2, L3, L4, L5 laminectomy, L4-L5 fusion done on 07/31/2023 Chronic issues---- Hypertension Elevated PSA Chronic kidney disease stage III with baseline creatinine 1.4-1.5 DVT of left leg, completed anticoagulation PLAN: Continue IV fluids/pain medication as ordered per surgery team. Monitor blood pressure, will continue with Diovan 40 mg p.o. daily from a.m. SCDs both lower extremity Home medication was restarted Labs ordered for AM PT/OT/increase activity/pain control Patient/family present at bedside-- was informed about all work-up treatment plan Discussed with nursing staff Thank you for allowing us to participate in the care and management of this patient. Extended Emergency Contact Information Primary Emergency Contact: Manju Sales Relation: Spouse -see below for additional orders; further recommendations to follow Orders Placed This Encounter Procedures FL GUIDANCE OR USE ONLY - NON RESULTABLE FL GUIDANCE OR USE ONLY - NON RESULTABLE Potassium with Mg Reflex Protime-INR Potassium CBC Comprehensive metabolic panel Adult diet Regular Notify Provider - hemoglobin Vital Signs Monitor intake and output Neurovascular checks Wound care Ice therapy Drain Suction Instructions Continue indwelling urinary catheter to gravity drainage Remove urethral catheter Monitor for signs/symptoms of urinary retention Straight cath Incentive spirometry nursing Place sequential compression device Bedrest- Flat Full Code Inpatient consult to Internal Medicine--[facility] OT eval and treat PT eval and treat Initiate Oxygen Therapy Protocol Encourage deep breathing and coughing Admit to inpatient Admit to inpatient Transfer patient to different unit postprocedure NOTE: This report was transcribed using voice recognition software. Every effort was made to ensure accuracy; however, inadvertent computerized section maintainer errors may be present. Zhang Brasher MD Division of Hospitalist Medicine [facility] PAGER: Epic chat documented in this encounter [facility] 08-01-2023 Note Formatting of this n ote might be different from the original. Care Managment Initial Assessment Date: 08/01/2023 Patient Name: Ciro Sales : 1935 Patient Information Source of Information: Patient Cognition/Language: WFL - Within Functional Limits Permission given to speak with patient self pay representative/caregiver as indicated: Yes Confirmation of Payer with patient/family: Yes Payer Name: [employer] Medicare [place]: No Confirmation of Primary Care Physician: Confirmed PCP Name: Raz Damian Seen in last 2 years?: No Primary Caregiver: Self If assistance needed, confirmed caregiver ready, willing and able to care for patient at discharge: Yes Confirmed with: Linda Sales Living Arrangements Current Residence: House Number of Floors 1 Number of Entry Steps: 5 or more Bed/Bath Levels: Both first floor Facility: Facility Name: Plan to Return: Lives with: Spouse/significant other Support Systems: Spouse/significant other Activities of Daily Living Ambulation: Independent Bathing/Dressing: Independent Elimination/Continence/Toileting: Independent Feeding: Independent Who Assists with Activities of Daily Living: Instrumental Activities of Daily Living Prescription Coverage: Yes [facility]acy Used: [facility] Medication Management: Independent Transportation/Shopping: Independent Transportation Mode: Car Needs Assistance with Transportation at Discharge: No Meal Preparation: Independent Laundry/Cleaning: Independent Finances/Bill Paying: Independent Communication: Independent Types of Care Services/Equipment Utilized Care Services: Dialysis Type: Durable Medical Equipment: Cane, Walker Patient's Goal/Discharge Plan Patient expects to be discharged to: [facility] Discharge Planning Actions: Continue to follow Patient's Choice Rights and [employer] and Collaborative Relationships Disclosed as Indicated for Post-Acute Care: Interdisciplinary Team Engagement: PT/OT Social Work Referral for: Additional Information: Patient admitted to s/p decompression/fusion 07/31/2023. Reg diet. Drain noted. PT/OT following recommending IPR. Met with pt at bedside, introduced self and explained role of TCC. Pt has insurance with RX coverage, active with PCP. Lives at home with spouse. Request referral to [facility]. DATA ANALYST ETL DEVELOPER tasked to make referral. TCC to assist and follow as needed. Zoë Trimble RN T [facility] [facility] 08-01-2023 Note Formatting of this n ote might be different from the original. Care Managment Initial Assessment Date: 08/01/2023 Patient Name: Ciro Sales : 1935 Patient Information Source of Information: Patient Cognition/Language: WFL - Within Functional Limits Permission given to speak with patient self pay representative/caregiver as indicated: Yes Confirmation of Payer with patient/family: Yes Payer Name: [employer] Medicare : No Confirmation of Primary Care Physician: Confirmed PCP Name: Raz Damian Seen in last 2 years?: No Primary Caregiver: Self If assistance needed, confirmed caregiver ready, willing and able to care for patient at discharge: Yes Confirmed with: Linda Sales Living Arrangements Current Residence: House Number of Floors 1 Number of Entry Steps: 5 or more Bed/Bath Levels: Both first floor Facility: Facility Name: Plan to Return: Lives with: Spouse/significant other Support Systems: Spouse/significant other Activities of Daily Living Ambulation: Independent Bathing/Dressing: Independent Elimination/Continence/Toileting: Independent Feeding: Independent Who Assists with Activities of Daily Living: Instrumental Activities of Daily Living Prescription Coverage: Yes Pharmacy Used: [facility] Medication Management: Independent Transportation/Shopping: Independent Transportation Mode: Car Needs Assistance with Transportation at Discharge: No Meal Preparation: Independent Laundry/Cleaning: Independent Finances/Bill Paying: Independent Communication: Independent Types of Care Services/Equipment Utilized Care Services: Dialysis Type: Durable Medical Equipment: Cane, Walker Patient's Goal/Discharge Plan Patient expects to be discharged to: [facility] Discharge Planning Actions: Continue to follow Patient's Choice Rights and [employer] and Collaborative Relationships Disclosed as Indicated for Post-Acute Care: Interdisciplinary Team Engagement: PT/OT Social Work Referral for: Additional Information: Patient admitted to s/p decompression/fusion 07/31/2023. Reg diet. Drain noted. PT/OT following recommending IPR. Met with pt at bedside, introduced self and explained role of TCC. Pt has insurance with RX coverage, active with PCP. Lives at home with spouse. Request referral to [facility]. DATA ANALYST ETL DEVELOPER tasked to make referral. TCC to assist and follow as needed. Zoë Trimble RN [facility] 08-01-2023 Note Formatting of this n ote might be different from the original. Updated notes placed to [facility] via [facility] per TCC request. Await review and response regarding ability to accept. TCC notified. [facility] 08-01-2023 Note Formatting of this n ote might be different from the original. [facility]. Await review and response regarding ability to accept. TCC notified. T [facility] 08-01-2023 Note Formatting of this n ote might be different from the original. Referral placed to [facility]- via [facility] per TCC request. Await review and response regarding ability to accept. TCC notified. [facility] 08-01-2023 Note Formatting of this n ote might be different from the original. Referral placed to SNF- [facility]- via [facility] per TCC request. Await review and response regarding ability to accept. TCC notified. [facility] 08-01-2023 Note Formatting of this n ote might be different from the original. Spoke with patient and his and son at bedside, introduced self and role. Pt is hoping to go to [facility], but is agreeable to home care as a backup plan if he is safe to do so. Pt's is concerned she will not be able to help him as much as he needs if they were to go home before rehab. Pl Sql Developer following case for Discharge Needs. T [facility] 08-01-2023 Note Formatting of this n ote might be different from the original. Spoke with patient and his and son at bedside, introduced self and role. Pt is hoping to go to [facility], but is agreeable to home care as a backup plan if he is safe to do so. Pt's is concerned she will not be able to help him as much as he needs if they were to go home before rehab. Pl Sql Developer following case for Discharge Needs. [facility] 08-01-2023 Hospital Discharge instructions Chai Ball PA-C - 08/01/2023 8:51 AM EDT Wound care: Keep incision open to air, do not apply creams or lotions to incision You may shower, but do not soak in a tub or pool Call the office immediately if you notice any drainage, pus, or signs of infection General Instructions: No lifting greater than 10 pounds for [address] while using opioid pain medications or muscle relaxants Limit twisting, turning, and bending motions at the waist Avoid NSAIDs such as Ibuprofen, Advil, Aleve, Naproxen, and Mobic including aspirin Avoid nicotine in all forms Pain medication may constipate you requiring strong laxatives such as milk of magnesia or magnesium citrate Adequate Vitamin D3 and calcium in your diet are recommended for healing of fusion Follow up with Urology for voiding trial, call to make an appointment with them Follow up with Dr. Young as scheduled on 08/12 at 9am for staple/suture removal Call the office with any questions or concerns, Chai Ball PA-C - 08/04/2023 1:44 PM EDT Continuity of Care Form Patient Name: Ciro Sales : 1935 Admit date: 07/31/2023 Discharge date: 08/05/23 Code Status Order: Full Code Advance Directives: N Admitting Physician: Ta Young MD PCP: Hermann Damian MD Discharging Nurse: cierra Discharging Hospital Unit/Room#: [id number]/[id number] A Discharging Unit Phone Number: [phone] Emergency Contact: Extended Emergency Contact Information Primary Emergency Contact: Manju Sales Relation: Spouse Past Surgical History: Past Surgical History: Procedure Laterality Date CATARACT EXTRACTION Right COLONOSCOPY HEMORRHOID SURGERY 1999 [facility] HERNIA REPAIR Right inguinal LAMINECTOMY 07/31/2023 L2, L3, L4, L5 laminectomy L4-L5 fusion NOSE SURGERY A KID UMBILICAL HERNIA REPAIR 05/28/2019 Immunization History: Immunization History Administered Date(s) Administered Hep A, ped/adol, 2 dose 10/13/2007, 04/18/2008 Hep B, adult 10/13/2007, 11/16/2007, 04/18/2008 Influenza, High-dose Seasonal, Quadrivalent, Preservative Free 04/11/2020, 03/20/2021 Moderna SARS-CoV-2 Vaccination 06/21/2020, 08/04/2020 Pneumococcal Conjugate PCV 13 02/27/2017 Pneumococcal Polysaccharide PPSV23 04/06/2018 Td (adult), unspecified 12/21/2002 Tdap 04/06/2018 Typhoid, Parenteral 10/13/2007 Typhoid, ViCPs 10/13/2007 Zoster, Recombinant 08/11/2018, 10/15/2018 Active Problems: Medical Problems Problem List * (Principal) Lumbar stenosis with neurogenic claudication Osteoarthritis of right hip Chronic renal disease, stage III (HCC) Sebaceous cyst Post-nasal drainage OAB (overactive bladder) Chronic rhinitis Dermatitis Bilateral lower extremity edema Hyperlipidemia Elevated PSA, between 10 and less than 20 ng/ml Urge incontinence Allergic rhinitis Prediabetes Basal cell carcinoma of nose Trigger finger, left ring finger Greater trochanteric bursitis of right hip Rotator cuff tendinitis, left Essential hypertension, benign Umbilical hernia without obstruction and without gangrene Benign head tremor Isolation/Infection: No active isolations No active infections Nurse Assessment: Last Vital Signs: BP 147/77 (BP Location: Left arm, Patient Position: Sitting) Pulse 86 Temp 37.6 C (99.7 F) (Temporal) Resp 16 SpO2 93% Last documented pain score (0-10 scale): Last Weight: Wt Readings from Last 1 Encounters: 07/23/23 220 lb 6.4 oz (100 kg) Mental Status: JENNIFFER Patient Mental Status: oriented, alert, coherent, able to concentrate and follow conversation, and forgetful IV Access: JENNIFFER IV Access: None Nursing Mobility/ADLs: Walking Minimal assistance Transfer Minimal assistance Bathing Minimal assistance Dressing Minimal assistance Toileting Minimal assistance Feeding Minimal assistance Software Applications Architect Minimal assistance Med Delivery yes Wound Care Documentation and Therapy: Wound/Incision 07/31/23 Incision Back Midline (Active) Site Assessment Clean;Dry 08/04/23 0920 Odor None 08/01/23 1814 Drainage Amount None 08/03/23 0800 Primary Dressing Open to air 08/04/23 0920 Dressing Status Clean, dry & intact 08/04/23 0920 Number of days: 4 Elimination: Continence: Bowel: yes Bladder: yes Urinary Catheter: Indication for use of catheter: Urology/urologist seeing this patient or inserted indwelling catheter and Acute urinary retention/obstruction Colostomy/Ileostomy/Ileal Conduit: None Date of Last BM: 08/05/23 Intake/Output Summary (Last 24 hours) at 08/04/2023 1343 Last data filed at 08/04/2023 0630 Gross per 24 hour Intake -- Output 2170 ml Net -2170 ml I/O last 3 completed shifts: In: - Out: 2410 [Urine:1850; Drains:560] Safety Concerns: at risk for falls Impairments/Disabilities: none Nutrition Therapy: Current Nutrition Therapy: Oral diet: general Routes of Feeding: oral Liquids: thin liquids Daily Fluid Restriction: no Last Modified Barium Swallow with Video (Video Swallowing Test): not done Treatments at the Time of Hospital Discharge: Respiratory Treatments: none Oxygen Therapy: is not on home oxygen therapy. Ventilator: No ventilator support Rehab Therapies: physical therapy, occupational therapy, nursing, and aide Weight Bearing Status/Restrictions: no restriction Other Medical Equipment (for information only, NOT a DME order): walker and shower chair Other Treatments: none Patient's personal belongings (please select all that are sent with patient): none RN SIGNATURE: MANAGEMENT/SOCIAL WORK SECTION Inpatient Status Date: 07/31/2023 Readmission Risk Assessment Score: @READMISSIONRISKDETAILS@ Discharging to Facility/ Agency Name: [facility] Address: [address] [place] [address] [id number] [phone] Fax: Dialysis Facility (if applicable) Name: Address: Dialysis Schedule: Phone: Fax: Vest Maker/Morgue Keeper signature: ICIAN SECTION Prognosis: fair Condition at Discharge: stable Rehab Potential (if transferring to Rehab): fair Recommended Labs or Other Treatments After Discharge: Follow up with Dr. Young as scheduled on 08/13/2023 at 9am for staple/suture removal, OR china/sutures should be removed on 08/12 if still admitted to rehab at that time. Follow up with Urology outpatient for voiding trial. Physician Certification: I certify the above information and transfer of Ciro Sales is necessary for the continuing treatment of the diagnosis listed and that he requires penitentiary facility for less than 30 days. Update Admission H&P: No change in H&P PHYSICIAN SIGNATURE: documented in this encounter [facility] 07-31-2023 Plan of care note Problem: Pain - Adult Goal: Verbalizes/displays adequate comfort level or baseline comfort level 07/31/20232307 by Arti Millan RN Outcome: Progressing Flowsheets (Taken 07/31/20232307) Verbalizes/displays adequate comfort level or baseline comfort level: Encourage patient to monitor pain and request assistance Problem: Safety - Adult Goal: Free from fall injury 07/31/20232307 by Arti Millan RN Outcome: Progressing Flowsheets (Taken 07/31/20232307) Free from fall injury: Instruct family/caregiver on patient safety [facility] 07-31-2023 Plan of care note Problem: Pain - Adult Goal: Verbalizes/displays adequate comfort level or baseline comfort level Outcome: Progressing Flowsheets (Taken 07/31/2023 1813) Verbalizes/displays adequate comfort level or baseline comfort level: Encourage patient to monitor pain and request assistance Assess pain using appropriate pain scale [facility] 07-31-2023 Consult note Formatting of th is note is different from the original. Images from the original note were not included. Hospital Medicine Consult Admit Date: 07/31/2023 PCP: Hermann Damian MD Reason for consult : Medical management History Obtained From: patient/family present at bedside LEONA Tanner is a 88 y.o. male with past medical history -hypertension, elevated PSA follow-up with urology team, history of DVT of left popliteal vein completed anticoagulation 3 months back according to family, CKD stage III with baseline creatinine of 1.4-1.5 Patient had L2, L3, L4, L5 laminectomy, L4-L5 fusion for lumbar spondylosis/stenosis today. Patient denies any chest pain, shortness of breath, cough No nausea, vomiting, abdominal pain No fever spike noted Blood pressure 114/79 Past Medical History: Past Medical History: Diagnosis Date Acute deep vein thrombosis (DVT) of popliteal vein of left lower extremity (HCC) 11/18/2022 11/04/2022. xarelto x 3 months Arthritis Cancer (CMS/HCC) ([facility] BSC of nose History of elevated PSA Hyperlipidemia Hypertension Poison gt 11/22/2020 Umbilical hernia without obstruction or gangrene SCHEDULED FOR THE SURGERY ON 05/28 Viral URI with cough 04/11/2022 Past Surgical History: Past Surgical History: Procedure Laterality Date CATARACT EXTRACTION Right COLONOSCOPY HEMORRHOID SURGERY 1999 [facility] HERNIA REPAIR Right inguinal LAMINECTOMY 07/31/2023 L2, L3, L4, L5 laminectomy L4-L5 fusion NOSE SURGERY A KID UMBILICAL HERNIA REPAIR 05/28/2019 Social History: Social History Socioeconomic History Marital status: Spouse name: Not on file Number of children: Not on file Years of education: Not on file Highest education level: Not on file Occupational History Not on file Tobacco Use Smoking status: Never Smokeless tobacco: Never Vaping Use Vaping Use: Never used Substance and Sexual Activity Alcohol use: Yes Comment: 3-4 per year Drug use: No Sexual activity: Not Currently Other Topics Concern Not on file Social History Narrative Not on file Social Determinants of Health Financial Resource Strain: Low Risk (04/10/2023) Overall Financial Resource Strain (CARDIA) Difficulty of Paying Living Expenses: Not very hard Food Insecurity: No Food Insecurity (04/10/2023) Hunger Vital Sign Worried About Running Out of Food in the Last Year: Never true Ran Out of Food in the Last Year: Never true Transportation Needs: No Transportation Needs (04/10/2023) PRAPARE - Transportation Lack of Transportation (Medical): No Lack of Transportation (Non-Medical): No Physical Activity: Insufficiently Active (04/10/2023) Exercise Vital Sign Days of Exercise per Week: 1 day Minutes of Exercise per Session: 20 min Stress: Not on file Social Connections: Not on file Intimate Partner Violence: Not on file Housing Stability: Not on file Family History: Family History Problem Relation Name Age of Onset Heart disease Mother Cancer Father Medications Prior to Admission: No current facility-administered medications on file prior to encounter. Current Outpatient Medications on File Prior to Encounter Medication Sig Dispense Refill ibuprofen 200 MG tablet Take 600 mg by mouth every 8 hours as needed. Loratadine (CLARITIN PO) Take by mouth daily. oxybutynin XL (Ditropan-XL) 10 MG 24 hr tablet Take 10 mg by mouth daily. tiZANidine (Zanaflex) 4 MG capsule Take 4 mg by mouth 2 times daily as needed for muscle spasms. triamterene-hydrochlorothiazide (Maxzide-25) 37.5-25 MG tablet Take 1 tablet by mouth daily. (Patient not taking: Reported on 06/18/2023) 30 tablet 0 valsartan (Diovan) 40 MG tablet Take 1 tablet (40 mg) by mouth daily. 90 tablet 1 Allergies: Allergies Allergen Reactions Hydrocodone Other Swelling of LEs Seasonal Ic [Cholestatin] Other sinus REVIEW OF SYSTEMS: 10 System was reviewed, positive findings as given in history of presenting illness, rest of the system reviewed was negative Vitals: BP 114/79 Pulse 90 Temp 36.8 C (98.2 F) (Temporal) Resp 16 SpO2 95% Pulse Ox: SpO2 Av.2 % Min: 88 % Max: 100 % Supplemental O2: O2 Flow Rate (L/min): 3 L/min PHYSICAL EXAM: General appearance: No apparent distress, HEENT: Eyes: No scleral icterus Pallor noted Obese male Oral: Tongue is semi-moist Cardiovascular: S1/S2 heard, RRR Respiratory: Clear to auscultation bilaterally Abdomen: Soft, non-tender, non-distended bowel sounds positive,no mass palpable Extremity: no significant peripheral edema both lower extremities Neurology:Awake , alert, answering questions appropriately Musculoskeletal: Lumbar spine dressing noted, DAVID drain noted DATA: CBC: No results for input(s): WBC, RBC, HGB, HCT, MCV, RDW, PLT in the last 72 hours. BMP:No results for input(s): NA, K, CL, CO2, BUN, CREATININE, GLUCOSE, CALCIUM, ANIONGAP in the last 72 hours. LIVER PROFILE:No results for input(s): AST, ALT, BILITOT, ALKPHOS, PROT in the last 72 hours. No lab exists for component: LABALBU PT/INR: No results for input(s): PROTIME, INR in the last 72 hours. CARDIAC ENZYMES: No results for input(s): TROPONINI in the last 72 hours. Procalcitonin: No results found for: PROCAL Urine Culture: No results found for this or any previous visit. COVID-19 PCR: No results for input(s): COVID19 in the last 72 hours. I reviewed: [x] laboratory results [x] radiographic results At the time of today's encounter. Pt was informed about the results. IMAGING: See report I reviewed: [x] laboratory results [x] radiographic results At the time of today's encounter. Pt was advised of the results. IMPRESSION: Acute problems-- Lumbar spinal stenosis/spondylosis--status post L2, L3, L4, L5 laminectomy, L4-L5 fusion done on 07/31/2023 Chronic issues---- Hypertension Elevated PSA Chronic kidney disease stage III with baseline creatinine 1.4-1.5 DVT of left leg, completed anticoagulation PLAN: Continue IV fluids/pain medication as ordered per surgery team. Monitor blood pressure, will continue with Diovan 40 mg p.o. daily from a.m. SCDs both lower extremity Home medication was restarted Labs ordered for AM PT/OT/increase activity/pain control Patient/family present at bedside-- was informed about all work-up treatment plan Discussed with nursing staff Thank you for allowing us to participate in the care and management of this patient. Extended Emergency Contact Information Primary Emergency Contact: Manju Sales Relation: Spouse -see below for additional orders; further recommendations to follow Orders Placed This Encounter Procedures FL GUIDANCE OR USE ONLY - NON RESULTABLE FL GUIDANCE OR USE ONLY - NON RESULTABLE Potassium with Mg Reflex Protime-INR Potassium CBC Comprehensive metabolic panel Adult diet Regular Notify Provider - hemoglobin Vital Signs Monitor intake and output Neurovascular checks Wound care Ice therapy Drain Suction Instructions Continue indwelling urinary catheter to gravity drainage Remove urethral catheter Monitor for signs/symptoms of urinary retention Straight cath Incentive spirometry nursing Place sequential compression device Bedrest- Flat Full Code Inpatient consult to Internal Medicine--[facility] OT eval and treat PT eval and treat Initiate Oxygen Therapy Protocol Encourage deep breathing and coughing Admit to inpatient Admit to inpatient Transfer patient to different unit postprocedure NOTE: This report was transcribed using voice recognition software. Every effort was made to ensure accuracy; however, inadvertent computerized section maintainer errors may be present. Zhang Brasher MD Division of Hospitalist Medicine [facility] PAGER: Epic chat [employer] Phone: 07-31-2023 Note Formatting of this n ote might be different from the original. Patient son updated via phone [employer] 07-31-2023 Note Formatting of this n ote might be different from the original. Patient son updated via phone [employer] 07-31-2023 Note Formatting of this n ote might be different from the original. OPERATIVE NOTE Patient Name: Ciro Sales : 1935 DATE OF PROCEDURE: 07/31/2023 SURGEON: Ta Young MD CLIENT PROJECT COORDINATOR: Yuliya Diaz CNP PREOPERATIVE DIAGNOSES: Lumbar stenosis, spondylolisthesis, neurogenic claudication POSTOPERATIVE DIAGNOSES: Same PROCEDURE: L2, L3, L4, L5 laminectomy L4-L5 fusion ANESTHESIA: General ESTIMATED BLOOD LOSS: 50 INDICATION FOR PROCEDURE: Mr. Husam roque is a 88-year-old gentleman who presented with several years of progressive back pain and lower extremity pain and limited length of time he can stand the distance he can walk. MRI showed degenerative changes multiple levels with L4-L5 spondylolisthesis with severe stenosis due to facet ligamentous hypertrophy. There were similar findings at L2-L3 L3-L4 to a lesser degree. Risks and benefits of laminectomy and fusion were discussed with him, he wished to proceed. DESCRIPTION OF PROCEDURE: Patient was brought to the operative room general on trach esthesia was induced. He had spinal cord monitoring leads placed. He was turned prone on a spinal Tree table, his face chest hips arms and feet were all padded appropriately. C-arm was brought in field approximate the L3-L4 level, this is marked surgical marker and he was prepped and draped in the normal sterile fashion. After appropriate timeout identifying the patient, the level surgery type surgery point 5% Marcaine with epinephrine was instilled future incision. Skin incision was made dissection carried out to expose the laminas of L2-L3-L4 transverse processes lateral facets pars interarticularis at L4-L5 bilaterally. Level was confirmed intraoperatively via C arm. When the levels confirmed exposure complete there was thorough decortication of the transverse processes lateral facets pars interarticularis at L for L5 bilaterally. Then an O-arm scan was performed this allowed pedicle screws to be placed under live navigation at L4 and L5. The procedure to place the screws was as follows drill to make a airplane patrol pilot hole followed by pedicle finder followed by pedicle feeler followed by tap followed by pedicle feeler followed by the screw. 6.5 x 50 mm screws were placed at L4, and 6.5 x 45 mm screws were placed at L5. There is no changes to the EMG nerve conduction monitoring when the screws were placed. After the screws were placed they were all stimulated they all stimulated at an acceptable level. Then the rongeur was used to remove the spinous process of L2-L3 and L4. Pneumatic Mcgregor drill was then used to thin the laminas of L2-3 and 4 to level ligamentum flavum. Combination of 2 3 and 4 mm Kerrisons were used to remove the remaining bone the thickened leg underneath. There is extremely thickened ligamentum flavum at each level especially L4-L5 that created central canal and lateral recess stenosis. The ligamentous hypertrophy was adherent to the dorsal portion of the dura at the L4-L5 level where the stenosis was worse. Small durotomy was created during the decompression that was closed with a 5-0 silk suture and piece of muscle sewn over that. A Valsalva maneuver was performed at did not indicate any egress of CSF. To facilitate the closing of the durotomy we remove the L5 lamina so we could head of head of view and be sure that we had close the entire hole and there was not some under the L5 lamina that we could not see. For that reason the L5 laminectomy was also performed. Then rods were locked into the screws appropriately bone graft material both auto and aloe was placed for posterolateral fusion at L4-L5. The wound was autumn irrigated out 10 [place]uan round DAVID drain placed. Then the muscle fascia was closed with interrupted 0 Vicryl sutures followed by another layer of interrupted 2-0 Vicryl sutures followed by subcuticular 3-0 Vicryl sutures with Mastisol and Steri-Strips on the skin. Sterile dressing was placed. He was extubated taken recovery room in stable fashion. All of his spinal cord signals were the same at the end of the case compared to beginning. There is no neurosurgical resident available to assist the case, the nurse practitioner assisted to provide suction retraction assistance with opening closing allow the case to be performed safely. [facility] 07-31-2023 Note Formatting of this n ote might be different from the original. OPERATIVE NOTE Patient Name: Ciro Sales : 1935 DATE OF PROCEDURE: 07/31/2023 SURGEON: Ta Young MD CLIENT PROJECT COORDINATOR: Yuliya Diaz CNP PREOPERATIVE DIAGNOSES: Lumbar stenosis, spondylolisthesis, neurogenic claudication POSTOPERATIVE DIAGNOSES: Same PROCEDURE: L2, L3, L4, L5 laminectomy L4-L5 fusion ANESTHESIA: General ESTIMATED BLOOD LOSS: 50 INDICATION FOR PROCEDURE: Mr. Husam roque is a 88-year-old gentleman who presented with several years of progressive back pain and lower extremity pain and limited length of time he can stand the distance he can walk. MRI showed degenerative changes multiple levels with L4-L5 spondylolisthesis with severe stenosis due to facet ligamentous hypertrophy. There were similar findings at L2-L3 L3-L4 to a lesser degree. Risks and benefits of laminectomy and fusion were discussed with him, he wished to proceed. DESCRIPTION OF PROCEDURE: Patient was brought to the operative room general on trach esthesia was induced. He had spinal cord monitoring leads placed. He was turned prone on a spinal Tree table, his face chest hips arms and feet were all padded appropriately. C-arm was brought in field approximate the L3-L4 level, this is marked surgical marker and he was prepped and draped in the normal sterile fashion. After appropriate timeout identifying the patient, the level surgery type surgery point 5% Marcaine with epinephrine was instilled future incision. Skin incision was made dissection carried out to expose the laminas of L2-L3-L4 transverse processes lateral facets pars interarticularis at L4-L5 bilaterally. Level was confirmed intraoperatively via C arm. When the levels confirmed exposure complete there was thorough decortication of the transverse processes lateral facets pars interarticularis at L for L5 bilaterally. Then an O-arm scan was performed this allowed pedicle screws to be placed under live navigation at L4 and L5. The procedure to place the screws was as follows drill to make a airplane patrol pilot hole followed by pedicle finder followed by pedicle feeler followed by tap followed by pedicle feeler followed by the screw. 6.5 x 50 mm screws were placed at L4, and 6.5 x 45 mm screws were placed at L5. There is no changes to the EMG nerve conduction monitoring when the screws were placed. After the screws were placed they were all stimulated they all stimulated at an acceptable level. Then the rongeur was used to remove the spinous process of L2-L3 and L4. Pneumatic Mcgregor drill was then used to thin the laminas of L2-3 and 4 to level ligamentum flavum. Combination of 2 3 and 4 mm Kerrisons were used to remove the remaining bone the thickened leg underneath. There is extremely thickened ligamentum flavum at each level especially L4-L5 that created central canal and lateral recess stenosis. The ligamentous hypertrophy was adherent to the dorsal portion of the dura at the L4-L5 level where the stenosis was worse. Small durotomy was created during the decompression that was closed with a 5-0 silk suture and piece of muscle sewn over that. A Valsalva maneuver was performed at did not indicate any egress of CSF. To facilitate the closing of the durotomy we remove the L5 lamina so we could head of head of view and be sure that we had close the entire hole and there was not some under the L5 lamina that we could not see. For that reason the L5 laminectomy was also performed. Then rods were locked into the screws appropriately bone graft material both auto and aloe was placed for posterolateral fusion at L4-L5. The wound was autumn irrigated out 10 [place] round DAVID drain placed. Then the muscle fascia was closed with interrupted 0 Vicryl sutures followed by another layer of interrupted 2-0 Vicryl sutures followed by subcuticular 3-0 Vicryl sutures with Mastisol and Steri-Strips on the skin. Sterile dressing was placed. He was extubated taken recovery room in stable fashion. All of his spinal cord signals were the same at the end of the case compared to beginning. There is no neurosurgical resident available to assist the case, the nurse practitioner assisted to provide suction retraction assistance with opening closing allow the case to be performed safely. [facility] 07-30-2023 History and physical note History Of Present Illness Tennille Sales is a 88 y.o. male presenting with LBP and B LE pain, worse with standing and better with rest. Past Medical History He has a past medical history of Acute deep vein thrombosis (DVT) of popliteal vein of left lower extremity ([facility]) (11/18/2022), Arthritis, Cancer ([facility]) ([facility]), History of elevated PSA, Hyperlipidemia, Hypertension, Poison gt (11/22/2020), Umbilical hernia without obstruction or gangrene, and Viral URI with cough (04/11/2022). He has no past medical history of PONV (postoperative nausea and vomiting). Surgical History He has a past surgical history that includes Hemorrhoid surgery (1999); Cataract extraction (Right); Umbilical hernia repair (05/28/2019); Hernia repair (Right); Colonoscopy; and Nose surgery. Social History He reports that he has never smoked. He has never used smokeless tobacco. He reports current alcohol use. He reports that he does not use drugs. Allergies Hydrocodone and Seasonal ic [cholestatin] Medications No medications prior to admission. Review of Systems + LBP + B LE pain Physical Exam 4/5 RLE R foot drop Last Recorded Vitals There were no vitals taken for this visit. Relevant Results MRI of the lumbar spine shows degenerative changes multiple levels L2-L3, L3-L4, L4-L5 are his worst levels. At L2-L3 and L3-L4 there is facet ligament hypertrophy that resulted in moderately severe central canal and lateral recess stenosis. At L4-L5 there is a grade 1 spondylolisthesis and facet and ligamentous hypertrophy that result in extremely severe central canal and lateral recess stenosis. Assessment/Plan Active Problems: There are no active Hospital Problems. Lumbar stenosis, spondylolisthesis L2, L3, L4 laminectomy, L4/L5 fusion Risks/Benefits of the surgery have been discussed with the patient including but not limited to bleeding and hematoma formation, infection, CSF leak, nerve root injury, permanent weakness and . Pt and family understand and agree to the procedure. [facility] [place] Phone: 07-30-2023 History and physical note History Of Present Illness Tennille Sales is a 88 y.o. male presenting with LBP and B LE pain, worse with standing and better with rest. Past Medical History He has a past medical history of Acute deep vein thrombosis (DVT) of popliteal vein of left lower extremity ([facility]) (11/18/2022), Arthritis, Cancer ([facility]) ([facility]), History of elevated PSA, Hyperlipidemia, Hypertension, Poison gt (11/22/2020), Umbilical hernia without obstruction or gangrene, and Viral URI with cough (04/11/2022). He has no past medical history of PONV (postoperative nausea and vomiting). Surgical History He has a past surgical history that includes Hemorrhoid surgery (1999); Cataract extraction (Right); Umbilical hernia repair (05/28/2019); Hernia repair (Right); Colonoscopy; and Nose surgery. Social History He reports that he has never smoked. He has never used smokeless tobacco. He reports current alcohol use. He reports that he does not use drugs. Allergies Hydrocodone and Seasonal ic [cholestatin] Medications No medications prior to admission. Review of Systems + LBP + B LE pain Physical Exam 4/5 RLE R foot drop Last Recorded Vitals There were no vitals taken for this visit. Relevant Results MRI of the lumbar spine shows degenerative changes multiple levels L2-L3, L3-L4, L4-L5 are his worst levels. At L2-L3 and L3-L4 there is facet ligament hypertrophy that resulted in moderately severe central canal and lateral recess stenosis. At L4-L5 there is a grade 1 spondylolisthesis and facet and ligamentous hypertrophy that result in extremely severe central canal and lateral recess stenosis. Assessment/Plan Active Problems: There are no active Hospital Problems. Lumbar stenosis, spondylolisthesis L2, L3, L4 laminectomy, L4/L5 fusion Risks/Benefits of the surgery have been discussed with the patient including but not limited to bleeding and hematoma formation, infection, CSF leak, nerve root injury, permanent weakness and . Pt and family understand and agree to the procedure. Images from the original note were not included. Comprehensive Pre Surgical History and Physical ? Name: Ciro Sales : 1935 (Age-88 y.o.) Date of Service: Pt seen/examined on 07/23/2023 Procedure Information Date/Time: 07/31/23 0730 Procedure: LUMBAR 2/3/4 LAMINECTOMY, LUMBAR 4-5 FUSION (Back) - 3 HOUR CASE Location: [facility] OR [address] [place] [address] Operating Room Surgeons: Ta Young MD Chief Complaint: Spinal stenosis, lumbar region with neurogenic claudication [M48.062] Spondylolisthesis, lumbar region [M43.16] ASSESSMENT/PLAN: Patient is considered low/intermediate risk for this intermediate level 3 risk procedure/surgery () with no reducible risk factors. Based on the above evaluation, the benefits of the planned procedure likely exceed the risks. The patient is medically optimized to proceed with the planned procedure without any further cardiopulmonary testing. 1) Spinal stenosis, lumbar region with neurogenic claudication [M48.062] Spondylolisthesis, lumbar region [M43.16] - Managed per surgery - Shower kit - Orders per PAT Protocol: pain consult, T&S, CBC,BMP, EKG, pain consult - METS >4 2) Hypertension - MEDS: Diovan BP Readings from Last 3 Encounters: 07/23/23 (!) 138/102 06/18/23 (!) 173/95 05/27/23 (!) 155/82 -Managed by Dr. Damian (PCP - [facility]) - last OV 06/2022 3) History of elevated PSA - MEDS: oxybutynin XL - Managed Dr. Bustamante - Urology 4) Hx Acute deep vein thrombosis (DVT) in 10/2022 - popliteal vein of left lower extremity (HCC) - was placed on Xarelto for 3 months Visit Type: Pre-Admission Testing Visit Labs Ordered: YES - PER PAT PROTOCOL Sleep Referral Ordered: Patient had a postive sleep apnea score but declines a referral for a sleep study Total time spent (which include face to face and non face to face encounters) : 30 minutes Toxic drug monitoring/narrow therapeutic index drug monitoring : # Drug name : Diovan # Route administered : PO # Method of monitoring : BMP PAT Protocol referenced includes: 1. Anesthesia Lab Protocol Orders 2. Perioperative Cardiovascular Risk Assessment 3. Anesthesia Assessment 4. Pain Assessment and Acute Pain Service Consult (if appropriate) 5. Medical Clearance/Consult from Internal Medicine (IMS) 6. Shower/Wash Order (for designated surgeries) 7. HIGINIO Screen and Sleep Clinic Referral (if appropriate) Patient did not name a surrogate decision maker or provide an advance care plan History Of Present Illness: 88 y.o. male who we are asked to see/evaluate by Ta Young MD for pre-operative evaluation prior to LUMBAR 2/3/4 LAMINECTOMY, LUMBAR 4-5 FUSION (Back) - 3 HOUR CASE ? From last office visit with Ta Young MD on 06/18/2023: 88 y.o. presents with complaint of right sided low back pain with right leg radiculopathy. He reports that he has been struggling with symptoms for the past year. His pain begins in the low sacral lumbar region off to the right and radiates into his right hip and radiates down the back of his right leg into his calf and foot. He states that it is a deep aching pain. He reports weakness in this leg as well and is having difficulty with ambulation due to weakness. He has been unable to sleep well due to pain. He is working with a chiropractor with formal stretching, exercises, traction. He reports that this has been somewhat helpful but he continues to have severe debilitating pain. Patient denies exertional chest pain/shortness of breath. Denies dizziness, syncope, lightheadedness. Denies fever, chills, weakness or fatigue. Patient denies any recent illness, infections, or wounds. Patient denies abdominal pain, nausea, vomiting, diarrhea, or constipation. Patient denies hx of CAD, CHF, AR, TIA/CVA, diabetes, COPD, asthma, HIGINIO. Past Medical History: Past Medical History: 11/18/2022: Acute deep vein thrombosis (DVT) of popliteal vein of left lower extremity ([facility]) Comment: 11/04/2022. 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 No date: History of elevated PSA No date: Hyperlipidemia No date: Hypertension 11/22/2020: Poison gt No date: Umbilical hernia without obstruction or gangrene Comment: SCHEDULED FOR THE SURGERY ON 05/2804/11/2022: Viral URI with cough Past Surgical History: Past Surgical History: No date: CATARACT EXTRACTION; Right No date: COLONOSCOPY 1999: HEMORRHOID SURGERY Comment: SHB No date: HERNIA REPAIR; Right Comment: inguinal No date: NOSE SURGERY Comment: A KID 05/28/2019: UMBILICAL HERNIA REPAIR Medications Prior to Admission: Current Outpatient Medications on File Prior to Visit Medication Sig Dispense Refill ibuprofen 200 MG tablet Take 600 mg by mouth every 8 hours as needed. Loratadine (CLARITIN PO) Take by mouth daily. oxybutynin XL (Ditropan-XL) 10 MG 24 hr tablet Take 10 mg by mouth daily. valsartan (Diovan) 40 MG tablet Take 1 tablet (40 mg) by mouth daily. 90 tablet 1 tiZANidine (Zanaflex) 4 MG capsule Take 4 mg by mouth 2 times daily as needed for muscle spasms. triamterene-hydrochlorothiazide (Maxzide-25) 37.5-25 MG tablet Take 1 tablet by mouth daily. (Patient not taking: Reported on 06/18/2023) 30 tablet 0 No current facility-administered medications on file prior to visit. CHRONIC NARCOTIC USE: No Allergies: Hydrocodone and Seasonal ic [cholestatin] If patient has opioid allergy, is it okay to take Acetaminophen: Yes Social History: TOBACCO: reports that he has never smoked. He has never used smokeless tobacco. ETOH: reports current alcohol use. Social History Substance and Sexual Activity Drug Use No Family History: Family History Problem Relation Name Age of Onset Heart disease Mother Cancer Father REVIEW OF SYSTEMS: Review of Systems Constitutional: Negative for chills, fatigue and fever. HENT: Negative for facial swelling, nosebleeds and trouble swallowing. Respiratory: Negative for apnea, shortness of breath and wheezing. Cardiovascular: Negative for chest pain, palpitations and leg swelling. Gastrointestinal: Negative for abdominal pain, blood in stool, constipation, diarrhea, nausea and vomiting. Genitourinary: Negative for difficulty urinating, dysuria, frequency, scrotal swelling, testicular pain and urgency. Musculoskeletal: Negative for gait problem, joint swelling and neck stiffness. Neurological: Negative for dizziness, seizures, syncope, numbness and headaches. Psychiatric/Behavioral: Negative for agitation, self-injury and suicidal ideas. The patient is not nervous/anxious. Physical Exam: Physical Exam Constitutional: Appearance: Normal appearance. He is normal weight. HENT: Head: Normocephalic. Mouth/Throat: Mouth: Mucous membranes are moist. Pharynx: Oropharynx is clear. Eyes: Pupils: Pupils are equal, round, and reactive to light. Cardiovascular: Rate and Rhythm: Normal rate and regular rhythm. Pulses: Normal pulses. Pulmonary: Effort: Pulmonary effort is normal. Abdominal: General: Bowel sounds are normal. Musculoskeletal: General: Normal range of motion. Cervical back: Normal range of motion. Skin: General: Skin is warm and dry. Neurological: General: No focal deficit present. Mental Status: He is alert. Psychiatric: Mood and Affect: Mood normal. Behavior: Behavior normal. Vitals: Vitals Value Taken Time BP 138/102 07/23/23 1117 Temp 37.2 C (98.9 F) 07/23/23 1117 Pulse 77 07/23/23 1117 Resp 20 07/23/23 1117 SpO2 94% 07/23/23 1117 Labs: ordered today per PAT protocol Jose's Simple Cardiac Risk Index: JOSE'S SIMPLE CARDIAC RISK SCORE: 0 Interpretation: 0 Points Class I 0.5% 1 Point Class II 1.3% 2 Points Class III 3.6% 3+ Points Class IV 9.1% PAT Pain Score: Pain Score: 7 Postop Pain Management Plan (Pain consult ordered?): Pain score >6 in PAT - Pain consult recommended, will defer consult to surgical team ? 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 Comprehensive Pre Surgical History and Physical ? Name: Ciro Sales : 1935 (Age-88 y.o.) Date of Service: Pt seen/examined on 07/23/2023 Procedure Information Date/Time: 07/31/23 0730 Procedure: LUMBAR 2/3/4 LAMINECTOMY, LUMBAR 4-5 FUSION (Back) - 3 HOUR CASE Location: [facility] OR [address] [place] [address] Operating Room Surgeons: Ta Young MD Chief Complaint: Spinal stenosis, lumbar region with neurogenic claudication [M48.062] Spondylolisthesis, lumbar region [M43.16] ASSESSMENT/PLAN: Patient is considered low/intermediate risk for this intermediate level 3 risk procedure/surgery () with no reducible risk factors. Based on the above evaluation, the benefits of the planned procedure likely exceed the risks. The patient is medically optimized to proceed with the planned procedure without any further cardiopulmonary testing. 1) Spinal stenosis, lumbar region with neurogenic claudication [M48.062] Spondylolisthesis, lumbar region [M43.16] - Managed per surgery - Shower kit - Orders per PAT Protocol: pain consult, T&S, CBC,BMP, EKG, pain consult - METS >4 2) Hypertension - MEDS: Diovan BP Readings from Last 3 Encounters: 07/23/23 (!) 138/102 06/18/23 (!) 173/95 05/27/23 (!) 155/82 -Managed by Dr. Damian (PCP - [facility]) - last OV 06/2022 3) History of elevated PSA - MEDS: oxybutynin XL - Managed Dr. Bustamante - Urology 4) Hx Acute deep vein thrombosis (DVT) in 10/2022 - popliteal vein of left lower extremity (HCC) - was placed on Xarelto for 3 months Visit Type: Pre-Admission Testing Visit Labs Ordered: YES - PER PAT PROTOCOL Sleep Referral Ordered: Patient had a postive sleep apnea score but declines a referral for a sleep study Total time spent (which include face to face and non face to face encounters) : 30 minutes Toxic drug monitoring/narrow therapeutic index drug monitoring : # Drug name : Diovan # Route administered : PO # Method of monitoring : BMP PAT Protocol referenced includes: 1. Anesthesia Lab Protocol Orders 2. Perioperative Cardiovascular Risk Assessment 3. Anesthesia Assessment 4. Pain Assessment and Acute Pain Service Consult (if appropriate) 5. Medical Clearance/Consult from Internal Medicine (IMS) 6. Shower/Wash Order (for designated surgeries) 7. HIGINIO Screen and Sleep Clinic Referral (if appropriate) Patient did not name a surrogate decision maker or provide an advance care plan History Of Present Illness: 88 y.o. male who we are asked to see/evaluate by Ta Young MD for pre-operative evaluation prior to LUMBAR 2/3/4 LAMINECTOMY, LUMBAR 4-5 FUSION (Back) - 3 HOUR CASE ? From last office visit with Ta Young MD on 06/18/2023: 88 y.o. presents with complaint of right sided low back pain with right leg radiculopathy. He reports that he has been struggling with symptoms for the past year. His pain begins in the low sacral lumbar region off to the right and radiates into his right hip and radiates down the back of his right leg into his calf and foot. He states that it is a deep aching pain. He reports weakness in this leg as well and is having difficulty with ambulation due to weakness. He has been unable to sleep well due to pain. He is working with a chiropractor with formal stretching, exercises, traction. He reports that this has been somewhat helpful but he continues to have severe debilitating pain. Patient denies exertional chest pain/shortness of breath. Denies dizziness, syncope, lightheadedness. Denies fever, chills, weakness or fatigue. Patient denies any recent illness, infections, or wounds. Patient denies abdominal pain, nausea, vomiting, diarrhea, or constipation. Patient denies hx of CAD, CHF, AR, TIA/CVA, diabetes, COPD, asthma, HIGINIO. Past Medical History: Past Medical History: 11/18/2022: Acute deep vein thrombosis (DVT) of popliteal vein of left lower extremity ([facility]) Comment: 11/04/2022. 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 No date: History of elevated PSA No date: Hyperlipidemia No date: Hypertension 11/22/2020: Poison gt No date: Umbilical hernia without obstruction or gangrene Comment: SCHEDULED FOR THE SURGERY ON 05/2804/11/2022: Viral URI with cough Past Surgical History: Past Surgical History: No date: CATARACT EXTRACTION; Right No date: COLONOSCOPY 2000: HEMORRHOID SURGERY Comment: SHB No date: HERNIA REPAIR; Right Comment: inguinal No date: NOSE SURGERY Comment: A KID 05/28/2019: UMBILICAL HERNIA REPAIR Medications Prior to Admission: Current Outpatient Medications on File Prior to Visit Medication Sig Dispense Refill ibuprofen 200 MG tablet Take 600 mg by mouth every 8 hours as needed. Loratadine (CLARITIN PO) Take by mouth daily. oxybutynin XL (Ditropan-XL) 10 MG 24 hr tablet Take 10 mg by mouth daily. valsartan (Diovan) 40 MG tablet Take 1 tablet (40 mg) by mouth daily. 90 tablet 1 tiZANidine (Zanaflex) 4 MG capsule Take 4 mg by mouth 2 times daily as needed for muscle spasms. triamterene-hydrochlorothiazide (Maxzide-25) 37.5-25 MG tablet Take 1 tablet by mouth daily. (Patient not taking: Reported on 06/18/2023) 30 tablet 0 No current facility-administered medications on file prior to visit. CHRONIC NARCOTIC USE: No Allergies: Hydrocodone and Seasonal ic [cholestatin] If patient has opioid allergy, is it okay to take Acetaminophen: Yes Social History: TOBACCO: reports that he has never smoked. He has never used smokeless tobacco. ETOH: reports current alcohol use. Social History Substance and Sexual Activity Drug Use No Family History: Family History Problem Relation Name Age of Onset Heart disease Mother Cancer Father REVIEW OF SYSTEMS: Review of Systems Constitutional: Negative for chills, fatigue and fever. HENT: Negative for facial swelling, nosebleeds and trouble swallowing. Respiratory: Negative for apnea, shortness of breath and wheezing. Cardiovascular: Negative for chest pain, palpitations and leg swelling. Gastrointestinal: Negative for abdominal pain, blood in stool, constipation, diarrhea, nausea and vomiting. Genitourinary: Negative for difficulty urinating, dysuria, frequency, scrotal swelling, testicular pain and urgency. Musculoskeletal: Negative for gait problem, joint swelling and neck stiffness. Neurological: Negative for dizziness, seizures, syncope, numbness and headaches. Psychiatric/Behavioral: Negative for agitation, self-injury and suicidal ideas. The patient is not nervous/anxious. Physical Exam: Physical Exam Constitutional: Appearance: Normal appearance. He is normal weight. HENT: Head: Normocephalic. Mouth/Throat: Mouth: Mucous membranes are moist. Pharynx: Oropharynx is clear. Eyes: Pupils: Pupils are equal, round, and reactive to light. Cardiovascular: Rate and Rhythm: Normal rate and regular rhythm. Pulses: Normal pulses. Pulmonary: Effort: Pulmonary effort is normal. Abdominal: General: Bowel sounds are normal. Musculoskeletal: General: Normal range of motion. Cervical back: Normal range of motion. Skin: General: Skin is warm and dry. Neurological: General: No focal deficit present. Mental Status: He is alert. Psychiatric: Mood and Affect: Mood normal. Behavior: Behavior normal. Vitals: Vitals Value Taken Time BP 138/102 07/23/23 1117 Temp 37.2 C (98.9 F) 07/23/23 1117 Pulse 77 07/23/23 1117 Resp 20 07/23/23 1117 SpO2 94% 07/23/23 1117 Labs: ordered today per PAT protocol Jose's Simple Cardiac Risk Index: JOSE'S SIMPLE CARDIAC RISK SCORE: 0 Interpretation: 0 Points Class I 0.5% 1 Point Class II 1.3% 2 Points Class III 3.6% 3+ Points Class IV 9.1% [facility] Pain Score: Pain Score: 7 Postop Pain Management Plan (Pain consult ordered?): Pain score >6 in PAT - Pain consult recommended, will defer consult to surgical team ? 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 presents with complaint of right sided low back pain with right leg radiculopathy. He reports that he has been struggling with symptoms for the past year. His pain begins in the low sacral lumbar region off to the right and radiates into his right hip and radiates down the back of his right leg into his calf and foot. He states that it is a deep aching pain. He reports weakness in this leg as well and is having difficulty with ambulation due to weakness. He has been unable to sleep well due to pain. He is working with a chiropractor with formal stretching, exercises, traction. He reports that this has been somewhat helpful but he continues to have severe debilitating pain. Chief Complaint Patient presents with New Patient Spinal stenosis Conservative Treatments: Physical Therapy: Does not report any recent physical therapy, although he has been working with hospice care sales consultant NSAID's: Yes, he is taking ibuprofen twice daily Narcotics: No Muscle relaxants: He has utilized tizanidine as needed Epidural injections: No Chiropractor: Y, he has been working with a chiropractor over the past year Past Medical History: Past Medical History: Diagnosis Date Acute deep vein thrombosis (DVT) of popliteal vein of left lower extremity (HCC) 11/18/2022 11/04/2022. xarelto x 3 months History of elevated PSA Hyperlipidemia Hypertension Poison gt 11/22/2020 Umbilical hernia without obstruction or gangrene SCHEDULED FOR THE SURGERY ON 05/28 Viral URI with cough 04/11/2022 Past Surgical History: Past Surgical History: Procedure Laterality Date CATARACT EXTRACTION Right COLONOSCOPY HEMORRHOID SURGERY 1999 SHB HERNIA REPAIR NOSE SURGERY A KID UMBILICAL HERNIA REPAIR 05/28/2019 Home Medications: Prior to Admission medications Medication Sig Start Date End Date Taking? Authorizing Provider ibuprofen 200 MG tablet Take by mouth. Yes Historical Provider, Loratadine (CLARITIN PO) Take by mouth. Yes Historical Provider, oxybutynin XL (Ditropan-XL) 10 MG 24 hr tablet Take 10 mg by mouth daily. 02/11/22 Yes Historical Provider, tiZANidine (Zanaflex) 4 MG capsule Take 4 mg by mouth 2 times daily as needed for muscle spasms. Yes Historical Provider, valsartan (Diovan) 40 MG tablet Take 1 tablet (40 mg) by mouth daily. 05/26/23 Yes Hermann Damian MD triamterene-hydrochlorothiazide (Maxzide-25) 37.5-25 MG tablet Take 1 tablet by mouth daily. Patient not taking: Reported on 06/18/2023 04/10/23 Hermann Damian MD Allergies: Seasonal ic [cholestatin] Social History: TOBACCO: reports that he has never smoked. He has never used smokeless tobacco. ETOH: reports no history of alcohol use. RECREATIONAL DRUG USE: Social History Substance and Sexual Activity Drug Use No Family History: Family History Problem Relation Name Age of Onset Heart disease Mother Cancer Father Review of Systems Constitutional: Negative. HENT: Negative. Eyes: Negative. Respiratory: Negative. Cardiovascular: Negative. Gastrointestinal: Negative. Endocrine: Negative. Genitourinary: Negative. Musculoskeletal: Positive for arthralgias, back pain, gait problem and myalgias. Skin: Negative. Neurological: Positive for weakness and numbness. Psychiatric/Behavioral: Negative. Physical Examination: Vitals: 06/18/23 1103 BP: (!) 173/95 Pulse: 86 Temp: 36.3 C (97.3 F) Physical Exam Constitutional: Appearance: Normal appearance. HENT: Head: Normocephalic. Eyes: Extraocular Movements: Extraocular movements intact. Pupils: Pupils are equal, round, and reactive to light. Cardiovascular: Rate and Rhythm: Normal rate. Pulmonary: Effort: Pulmonary effort is normal. Abdominal: Palpations: Abdomen is soft. Musculoskeletal: Cervical back: Normal range of motion and neck supple. Lumbar back: Spasms and tenderness present. Decreased range of motion. Positive right straight leg raise test. Skin: General: Skin is warm and dry. Neurological: General: No focal deficit present. Mental Status: He is alert and oriented to person, place, and time. Cranial Nerves: Cranial nerves 2-12 are intact. Sensory: Sensory deficit present. Motor: Weakness present. Gait: Gait abnormal. Deep Tendon Reflexes: Reflex Scores: Patellar reflexes are 1+ on the right side and 1+ on the left side. Psychiatric: Mood and Affect: Mood normal. Judgment: Judgment normal. Neurologic Exam Mental Status Oriented to person, place, and time. Cranial Nerves Cranial nerves II through XII intact. CN III, IV, Pupils are equal, round, and reactive to light. Motor Exam Muscle bulk: normal Overall muscle tone: normal Strength Strength 5/5 except as noted. Right iliopsoas: 4/5 Right quadriceps: 4/5 Right hamstrin/5 Right glutei: 2/5 Right anterior tibial: 1/5 Right posterior tibial: 1/5 Right peroneal: 1/5 Right gastroc: 1/5Noted dropfoot in the right lower extremity Sensory Exam Right leg light touch: decreased from knee Gait, Coordination, and Reflexes Reflexes Right patellar: 1+ Left patellar: 1+Unsteady gait due to right lower extremity weakness, dropfoot, pain Results Labs: Last 24hrs No results found for this or any previous visit (from the past 24 hour(s)). Radiology Personal review: MRI of the lumbar spine shows degenerative changes multiple levels L2-L3, L3-L4, L4-L5 are his worst levels. At L2-L3 and L3-L4 there is facet ligament hypertrophy that resulted in moderately severe central canal and lateral recess stenosis. At L4-L5 there is a grade 1 spondylolisthesis and facet and ligamentous hypertrophy that result in extremely severe central canal and lateral recess stenosis. ASSESSMENT / PLAN : Lumbar stenosis, neurogenic claudication, spondylolisthesis. He is extremely limited in the length of time he can stand the distance he can walk. Today I recommended to him an L2, L3, L4 laminectomy with L4-L5 fusion. Risks and benefits of the procedure were discussed with him, he would like to proceed with surgery. Will schedule him for surgery at his convenience. Procedure: L2, L3, L4 laminectomy, L4-L5 fusion Anesthesia: GET Time: 3 Positioning/Frame: [employer]/Implants: [employer] O-Arm: Y C-Arm: Y Stealth Navigation: Y Mcclendon: N Microscope: Y Brace: Pre-Op Imaging: [facility] (disc is in my OR locker) Intranerve: Y Inpatient/Outpatient: In Medications to DC: Other:[id number], [id number], [id number], [id number] x 2, [id number] x 2, [id number] Diagnosis Plan 1. Lumbar stenosis with neurogenic claudication 2. Spondylolisthesis of lumbar region documented in this encounter [facility] 05-29-2023 Telephone encounter Note Noted and understand. [facility] 05-29-2023 Miscellaneous Notes Noted and understand. Thank you Ashly, it looks like he did get scheduled with Hector before June 18, I did try to schedule him with Ioana but I could not get his name to come up on the referral list, we need to get this referral stuff straightened out so that we can get all names to be available for referrals, there is got to be an easier way than trying to guess who is going to be able to be brought up for referral. Per notes in referral to [facility]-Ortho: General 05/26/2023 11:39 AM [facility] Patient called to schedule with [facility] for OA of RT hip. He'd need to see pfef or lopez for this with us. - Note: Patient called to schedule with [facility] for OA of RT hip. He'd need to see pfefferle or lopez for this with our joint team. He asked about a [facility] spine doc... neuro spine? He said across from [facility], [facility] ([facility]). Seeing Rickie (PCP) tomorrow and will discuss with him. Said he needs seen for a pinched nerve in his back. Could see Inkrott or Jaykel for this with spine here. Said hip not bothering him, and wants seen for back. Said he had a spine MRI done recently of back. Not in [facility]. Discuss if he needs to see neuro, spine or joint and what dx. Referred to Department: [facility] Address: [address] [place] [address] Refer to Provider: JERMAINE ARCEO Notified. Referral done to Jermaine Arceo at [place] Name of caller: Tennille Stephan Contact phone number: [phone] Relationship to Patient: patient Provider: Dr. Damian Practice: [facility] Chief Complaint/Reason for Call: Pt stated he has been experiencing right hip pain after bumping into a wooden railing. Pt would like a referral for an health informatics specialist to look at his right hip. Please advise. Thank you. Best time of day caller can be reached: Any Patient advised that office/PCP has 24-48 business hours to return their call: Yes documented in this encounter [facility] 05-29-2023 Telephone encounter Note Thank you Ashyl, it looks like he did get scheduled with [facility] before June 18, I did try to schedule him with Pflori but I could not get his name to come up on the referral list, we need to get this referral stuff straightened out so that we can get all names to be available for referrals, there is got to be an easier way than trying to guess who is going to be able to be brought up for referral. [facility] 05-28-2023 Telephone encounter Note Per notes in referral to [facility]-Ortho: General 05/26/2023 11:39 AM [facility] Patient called to schedule with [facility] for OA of RT hip. He'd need to see pfef or lopez for this with us. - Note: Patient called to schedule with [facility] for OA of RT hip. He'd need to see pfefferle or lopez for this with our joint team. He asked about a [facility] spine doc... neuro spine? He said across from [facility], [facility] [facility] [place] (??). Seeing Rickie (PCP) tomorrow and will discuss with him. Said he needs seen for a pinched nerve in his back. Could see Silas or Crescencio for this with spine here. Said hip not bothering him, and wants seen for back. Said he had a spine MRI done recently of back. Not in [facility]. Discuss if he needs to see neuro, spine or joint and what dx. [facility] 05-28-2023 Miscellaneous Notes Per notes in referral to [facility]-Ortho: General 05/26/2023 11:39 AM [facility] Patient called to schedule with [facility] for OA of RT hip. He'd need to see pfef or lopez for this with us. - Note: Patient called to schedule with [facility] for OA of RT hip. He'd need to see pfefferle or lopez for this with our joint team. He asked about a [facility] spine doc... neuro spine? He said across from [facility], which [facility] (??). Seeing Rickie (PCP) tomorrow and will discuss with him. Said he needs seen for a pinched nerve in his back. Could see Silas or Crescencio for this with spine here. Said hip not bothering him, and wants seen for back. Said he had a spine MRI done recently of back. Not in [facility]. Discuss if he needs to see neuro, spine or joint and what dx. Referred to Department: [facility] Address: [address] [place] [address] Refer to Provider: JERMAINE ARCEO. Referral done to Jermaine Arceo at [place] Name of caller: Tennille Stephan Contact phone number: [phone] Relationship to Patient: patient Provider: Dr. Damian Practice: [facility] Chief Complaint/Reason for Call: Pt stated he has been experiencing right hip pain after bumping into a wooden railing. Pt would like a referral for an health informatics specialist to look at his right hip. Please advise. Thank you. Best time of day caller can be reached: Any Patient advised that office/PCP has 24-48 business hours to return their call: Yes documented in this encounter [facility] 05-26-2023 Telephone encounter Note Referred to Department: [facility] Medical [facility] Address: [address] [place] [address] Refer to Provider: JERMAINE ARCEO. [facility] 05-26-2023 Telephone encounter Note Referral done to Jermaine Arceo at [place] [facility] 05-26-2023 Telephone encounter Note Name of caller: Tennille Sales Contact phone number: [phone] Relationship to Patient: patient Provider: Dr. Damian Practice: [facility] Chief Complaint/Reason for Call: Pt stated he has been experiencing right hip pain after bumping into a wooden railing. Pt would like a referral for an health informatics specialist to look at his right hip. Please advise. Thank you. Best time of day caller can be reached: Any Patient advised that office/PCP has 24-48 business hours to return their call: Yes [facility] 05-26-2023 Telephone encounter Note Pt stated he is completely out of this medication and doesn't have one to take today Medication name: valsartan (Diovan) 40 MG tablet (Pt stated he wants the full tablet of this) Medication dosage: 40 mg (Miligrams Monthly quantity needed: 90 How many day supply requestin days Medication route: oral (PO) Medication administration time(s): daily If taking medication PRN, reason for taking medication: N/A If this is a controlled substance do you receive this or any other controlled medication from any other doctor or facility: No Ordering provider: Dr. Damian Date of last office visit: 05.20.2023 Date of next office visit: 05.27.2023 Date of last refill: (see medication tab): 04.10.2023 Updated/Validated preferred pharmacy: Yes Patient instructed to contact the pharmacy prior to picking up the medication: Yes [facility] 05-26-2023 Miscellaneous Notes Pt stated he is completely out of this medication and doesn't have one to take today Medication name: valsartan (Diovan) 40 MG tablet (Pt stated he wants the full tablet of this) Medication dosage: 40 mg (Miligrams Monthly quantity needed: 90 How many day supply requestin days Medication route: oral (PO) Medication administration time(s): daily If taking medication PRN, reason for taking medication: N/A If this is a controlled substance do you receive this or any other controlled medication from any other doctor or facility: No Ordering provider: Dr. Damian Date of last office visit: 05.20.2023 Date of next office visit: 05.27.2023 Date of last refill: (see medication tab): 04.10.2023 Updated/Validated preferred pharmacy: Yes Patient instructed to contact the pharmacy prior to picking up the medication: Yes documented in this encounter [facility] 05-20-2023 Evaluation + Plan note Associated Problem(s): Essential hypertension, benign Blood pressure was initially elevated, recheck was still a little high but improved, follow-up in 1 week for blood pressure check. Continue valsartan 40 mg daily [facility] 05-20-2023 Miscellaneous Notes Associated Problem(s): Essential hypertension, benign Blood pressure was initially elevated, recheck was still a little high but improved, follow-up in 1 week for blood pressure check. Continue valsartan 40 mg daily Associated Problem(s): Greater trochanteric bursitis of right hip Injection procedure: Location right greater trochanter Consent: Verbal Consent Obtained-Discussed risks including hypo/hyperpigmentation, fat atrophy, steroid flare, bleeding and infection and potential consequences of over use of steroids. Prep: Betadine. Anesthesia: 2% lidocaine. Medication: 1 ml depomedrol 40 mg. Needle: 25 gauge 1.5 in. needle. Complications: No Complications, Hemostasis achieved. ND: 4612-8861-38 LOT: [id number] ND: 1924-4827-92 LOT: [id number] documented in this encounter [facility] 05-20-2023 Evaluation + Plan note Associated Problem(s): Greater trochanteric bursitis of right hip Injection procedure: Location right greater trochanter Consent: Verbal Consent Obtained-Discussed risks including hypo/hyperpigmentation, fat atrophy, steroid flare, bleeding and infection and potential consequences of over use of steroids. Prep: Betadine. Anesthesia: 2% lidocaine. Medication: 1 ml depomedrol 40 mg. Needle: 25 gauge 1.5 in. needle. Complications: No Complications, Hemostasis achieved. NDC: 6201-8977-71 LOT: [id number] ND: 7724-1895-13 LOT: [id number] [facility] 05-20-2023 History of Present illness Narrative Patient verified by last name and date of . Images from the original note were not included. 05/20/2023 Ciro Sales (: 1935) is a 88 y.o. male , Established patient, here for evaluation of the following chief complaint(s): Hip Pain (Right - very bad at night seen [facility] and had injections and made so much worse ) and Fall (While on vacation ) ASSESSMENT/PLAN: 1. Greater trochanteric bursitis of right hip Assessment & Plan: Injection procedure: Location right greater trochanter Consent: Verbal Consent Obtained-Discussed risks including hypo/hyperpigmentation, fat atrophy, steroid flare, bleeding and infection and potential consequences of over use of steroids. Prep: Betadine. Anesthesia: 2% lidocaine. Medication: 1 ml depomedrol 40 mg. Needle: 25 gauge 1.5 in. needle. Complications: No Complications, Hemostasis achieved. [facility]: [id number] LOT: [id number] [facility]: [id number] LOT: [id number] Orders: - Large Joint Injection/Arthrocentesis - methylPREDNISolone acetate (DEPO-Medrol) injection 40 mg; 40 mg, Intra-artICUlar, Once, On Fri05/20/23 at 0945, For 1 dose - lidocaine (Xylocaine) 2 % injection 4 mL; 4 mL, Injection, Once, On Fri05/20/23 at 0945, For 1 dose 2. Essential hypertension, benign Assessment & Plan: Blood pressure was initially elevated, recheck was still a little high but improved, follow-up in 1 week for blood pressure check. Continue valsartan 40 mg daily Follow up if symptoms worsen or fail to improve. SUBJECTIVE/OBJECTIVE: ALFREDA Luther comes in today complaining of pain of his right hip, this is on the lateral aspect he says he is seen pain management he has seen Ortho in a chiropractor and they have been working on his back to try to resolve this pain. He said he was recently on a cruise and he did fall and landed on that hip. Blood pressure is elevated today we will have to recheck that prior to discharge Review of Systems Musculoskeletal: Positive for arthralgias and myalgias. Negative for gait problem. Neurological: Negative for weakness and numbness. Vitals: 05/20/23 0844 05/20/23 0917 BP: (!) 167/91 (!) 146/88 Pulse: 69 67 SpO2: 90% Weight: 226 lb (103 kg) Height: 5' 10.5 (1.791 m) Physical Exam Vitals and nursing note reviewed. Constitutional: General: He is not in acute distress. Appearance: Normal appearance. Musculoskeletal: Comments: He has tenderness to palpation over the greater trochanter on the right side, he has full range of motion of his leg, no pain with internal/external rotation of the hip. Neurological: Mental Status: He is alert. An electronic signature was used to authenticate this note. Hermann Damian MD 05/20/2023 9:34 AM documented in this encounter [facility] 04-15-2023 Evaluation + Plan note Associated Problem(s): Bilateral lower extremity edema Much improved. Continue Maxide for an additional couple of days and stop as previously directed by Dr. Damian. [facility] 04-15-2023 Miscellaneous Notes Associated Problem(s): Bilateral lower extremity edema Much improved. Continue Maxide for an additional couple of days and stop as previously directed by Dr. Damian. Associated Problem(s): Essential hypertension, benign Blood pressure controlled 120/71. Continue valsartan 40 mg daily and Maxide for the remainder of the week as previously directed by Dr. Damian documented in this encounter [facility] 04-15-2023 Evaluation + Plan note Associated Problem(s): Essential hypertension, benign Blood pressure controlled 120/71. Continue valsartan 40 mg daily and Maxide for the remainder of the week as previously directed by Dr. Damian [facility] 04-15-2023 History of Present illness Narrative Patient was identified by name and Date of . HM: AWV-completed on 04/10/23 RSV-declined Skin Check-[facility] [place]) Flu-declined [id number] Images from the original note were not included. 04/15/2023 Ciro Sales (: 1935) is a 88 y.o. male , Established patient, here for evaluation of the following chief complaint(s): Follow-up, Blood Pressure Check, and Leg Swelling (/) ASSESSMENT/PLAN: 1. Bilateral lower extremity edema Assessment & Plan: Much improved. Continue Maxide for an additional couple of days and stop as previously directed by Dr. Damian. 2. Essential hypertension, benign Assessment & Plan: Blood pressure controlled 120/71. Continue valsartan 40 mg daily and Maxide for the remainder of the week as previously directed by Dr. Damian Follow up if symptoms worsen or fail to improve. SUBJECTIVE/OBJECTIVE: HPI - Ciro Sales (: 1935) is a 88 y.o. male , Established patient, here for the evaluation of the following chief complaint(s): Follow-up, Blood Pressure Check, and Leg Swelling (/) Presents today for follow-up lower leg edema. Which was thought to be secondary to amlodipine. Patient stopped amlodipine last week and increased his losartan to 40 mg daily, and added Maxide for swelling, states he was instructed to take the Maxide for about 1 week then stop. Patient reports doing well swelling is much improved and blood pressure is good 120/71. Denies any dizziness or lightheadedness. Prior to Admission medications Medication Sig Start Date End Date Taking? Authorizing Provider Carboxymethylcell-Hypromellose 0.25-0.3 % gel Apply to affected eye(s). Yes Historical Provider, clobetasol (Temovate) 0.05 % external solution APPLY TOPICALLY AT NIGHT FOR 2 WEEKS TAKING 1 WEEK OFF BEFORE REPEATING NEEDED FOR FLARES 03/10/23 Yes Historical Provider, ketoconazole (NIZOral) 2 % shampoo WASH THE SCALP DAILY WHEN FLARED, THEN 1-2 TIMES PER WEEK FOR MAINTENANCE. LATHER & LET SIT FOR A FEW MINUTES BEFORE RINSING. 01/22/23 Yes Historical Provider, Loratadine (CLARITIN PO) Take by mouth. Yes Historical Provider, oxybutynin XL (Ditropan-XL) 10 MG 24 hr tablet Take 10 mg by mouth daily. 02/11/22 Yes Historical Provider, triamterene-hydrochlorothiazide (Maxzide-25) 37.5-25 MG tablet Take 1 tablet by mouth daily. 04/10/23 Yes Hermann Damian MD valsartan (Diovan) 40 MG tablet Take 0.5 tablets (20 mg) by mouth daily. 04/10/23 Yes Hermann Damian MD amLODIPine (Norvasc) 10 MG tablet Take 1 tablet (10 mg) by mouth daily. 10/18/22 04/10/23 Hermann Damian MD [id number] 333-133-5 MG tablet Take by mouth. 04/10/23 Historical Provider, Robert Irwin oxycoccus, (Cranberry Extract) 200 MG capsule Take by mouth. 04/10/23 Historical Provider, fluticasone (Flonase) 50 MCG/ACT nasal spray Administer 2 sprays into each nostril Nightly. Shake gently. Before first use, prime pump. After use, clean tip and replace cap. Patient not taking: Reported on 04/10/2023 11/04/22 04/10/23 Gretchenzoraida Cabrera [employer] furosemide (Lasix) 20 MG tablet Take 1 tablet (20 mg) by mouth daily for 2 days. Patient not taking: Reported on 04/10/2023 04/07/23 04/10/23 Gretchen Josefinaal [employer] hydrocortisone 2.5 % cream Apply topically 2 times daily as needed for irritation or rash. Patient not taking: Reported on 04/10/2023 04/03/23 04/10/23 Gretchen Bridenthal [employer] - [employer] MANAGER omega-3 (Fish Oil) 1000 MG capsule Take 1,000 mg by mouth. 04/10/23 Historical ProviderMD pregabalin (Lyrica) 75 MG capsule TAKE 1 CAPSULE BY MOUTH TWICE DAILY DIRECTED 03/20/23 04/10/23 Historical Provider, TURMERIC PO Take by mouth. 04/10/23 Historical Provider, valsartan (Diovan) 40 MG tablet Take 0.5 tablets (20 mg) by mouth daily. 01/06/23 04/10/23 KALLIE Carter CNP Review of Systems Constitutional: Negative for activity change, chills, diaphoresis, fatigue and fever. Respiratory: Negative. Cardiovascular: Positive for leg swelling (Improving). Negative for chest pain and palpitations. Vitals: 04/15/23 1005 BP: 120/71 Pulse: 78 Resp: 20 Temp: 36.8 C (98.2 F) TempSrc: Infrared SpO2: 95% Weight: 217 lb 3.2 oz (98.5 kg) Physical Exam Constitutional: General: He is not in acute distress. Appearance: Normal appearance. He is not ill-appearing. HENT: Head: Normocephalic and atraumatic. Cardiovascular: Rate and Rhythm: Normal rate and regular rhythm. Pulses: Normal pulses. Heart sounds: Normal heart sounds. Pulmonary: Effort: Pulmonary effort is normal. Breath sounds: Normal breath sounds. Musculoskeletal: Right lower leg: No edema. Left lower leg: Edema (Trace nonpitting around the ankle) present. Skin: General: Skin is warm and dry. Neurological: Mental Status: He is alert. An electronic signature was used to authenticate this note. KALLIE Carter CNP 04/15/2023 10:59 AM documented in this encounter [facility] [employer] 04-10-2023 Evaluation + Plan note Associated Problem(s): Hyperlipidemia Uncontrolled has refused statins in the past. [facility] [employer] [facility] 04-10-2023 Evaluation + Plan note Associated Problem(s): Prediabetes Stable, repeat A1c today [facility] [employer] 04-10-2023 Miscellaneous Notes Associated Problem(s): Hyperlipidemia Uncontrolled has refused statins in the past. Associated Problem(s): Prediabetes Nissa, repeat A1c today Associated Problem(s): Bilateral lower extremity edema Currently minimal recommend he keep his legs elevated we will stop his amlodipine and have him take Maxide Associated Problem(s): OAB (overactive bladder) Nissa, continue oxybutynin XL 10 mg Associated Problem(s): Urge incontinence Nissa, continue oxybutynin XL 10 mg Associated Problem(s): Essential hypertension, benign Controlled, we will stop his amlodipine due to swelling and have him take a full tablet of the valsartan 40 mg and have him start Maxide for the swelling. Associated Problem(s): Benign head tremor Nissa, has not gotten any worse documented in this encounter [facility] [employer] 04-10-2023 Evaluation + Plan note Associated Problem(s): Bilateral lower extremity edema Currently minimal recommend he keep his legs elevated we will stop his amlodipine and have him take Maxide [facility] [employer] 04-10-2023 Evaluation + Plan note Associated Problem(s): OAB (overactive bladder) Nissa, continue oxybutynin XL 10 mg [facility] 04-10-2023 Evaluation + Plan note Associated Problem(s): Urge incontinence Stable, continue oxybutynin XL 10 mg [facility] 04-10-2023 Evaluation + Plan note Associated Problem(s): Essential hypertension, benign Controlled, we will stop his amlodipine due to swelling and have him take a full tablet of the valsartan 40 mg and have him start Maxide for the swelling. [facility] 04-10-2023 Evaluation + Plan note Associated Problem(s): Benign head tremor Nissa, has not gotten any worse [facility] 04-10-2023 History of Present illness Narrative Patient verified by last name and date of . Images from the original note were not included. [facility] [address] [id number] Visit type: Established Patient Reason for Visit: Medicare Annual Wellness Visit Subsequent, Blood Work, Health Maintenance (Flu vaccine- refuse/Rsv vaccine- not done/Dermatology skin check- refuse/3rd covid vaccine- pt states will not get any more ), and Edema (In ankles ) Assessment and Plan Problem List Items Addressed This Visit Nervous Benign head tremor Nissa, has not gotten any worse Circulatory Essential hypertension, benign Controlled, we will stop his amlodipine due to swelling and have him take a full tablet of the valsartan 40 mg and have him start Maxide for the swelling. Relevant Medications valsartan (Diovan) 40 MG tablet Genitourinary OAB (overactive bladder) Stable, continue oxybutynin XL 10 mg Urge incontinence Stable, continue oxybutynin XL 10 mg Musculoskeletal Bilateral lower extremity edema Currently minimal recommend he keep his legs elevated we will stop his amlodipine and have him take Maxide Endocrine/Metabolic Prediabetes Stable, repeat A1c today Relevant Orders Comprehensive metabolic panel Hemoglobin A1c Other Hyperlipidemia Uncontrolled has refused statins in the past. Relevant Orders Lipid panel Other Visit Diagnoses Medicare annual wellness visit, subsequent - Primary Screening for prostate cancer Relevant Orders PSA Total (Screening) Follow up in about 6 months (around 10/10/2023). Subjective HPI Tennille comes in today for his annual Medicare well visit, is also here for follow-up on his multiple health issues and for discussing his medications and his leg swelling. His legs continue to have some swelling although it is not real significant right now he had taken some water pills which seemed to help and he is on amlodipine so we will stop that and see if that gets rid of the swelling. He has been on that medicine for years he says He is also here for follow-up on his hypertension and his OAB with urge incontinence prediabetes and hyperlipidemia. He would also like to have his PSA checked and sent to his urologist Dr. Bustamante. Edema Pertinent negative symptoms include no abdominal pain, no chest pain, no fever and no palpitations. I have reviewed and reconciled the medication list with the patient today. Current Outpatient Medications Medication Sig Dispense Refill Carboxymethylcell-Hypromellose 0.25-0.3 % gel Apply to affected eye(s). clobetasol (Temovate) 0.05 % external solution APPLY TOPICALLY AT NIGHT FOR 2 WEEKS TAKING 1 WEEK OFF BEFORE REPEATING NEEDED FOR FLARES ketoconazole (NIZOral) 2 % shampoo WASH THE SCALP DAILY WHEN FLARED, THEN 1-2 TIMES PER WEEK FOR MAINTENANCE. LATHER & LET SIT FOR A FEW MINUTES BEFORE RINSING. Loratadine (CLARITIN PO) Take by mouth. oxybutynin XL (Ditropan-XL) 10 MG 24 hr tablet Take 10 mg by mouth daily. triamterene-hydrochlorothiazide (Maxzide-25) 37.5-25 MG tablet Take 1 tablet by mouth daily. 30 tablet 0 valsartan (Diovan) 40 MG tablet Take 0.5 tablets (20 mg) by mouth daily. 90 tablet 1 No current facility-administered medications for this visit. Medications Discontinued During This Encounter Medication Reason [id number] 333-133-5 MG tablet Therapy completed Cranberry, Vacc oxycoccus, (Cranberry Extract) 200 MG capsule Therapy completed fluticasone (Flonase) 50 MCG/ACT nasal spray Therapy completed furosemide (Lasix) 20 MG tablet Therapy completed hydrocortisone 2.5 % cream Therapy completed omega-3 (Fish Oil) 1000 MG capsule Therapy completed pregabalin (Lyrica) 75 MG capsule Therapy completed TURMERIC PO Therapy completed valsartan (Diovan) 40 MG tablet Reorder amLODIPine (Norvasc) 10 MG tablet Side effects List of current healthcare providers: Patient Care Team: Hermann Damian MD as PCP - General The following health maintenance schedule was reviewed with the patient and provided in printed form in the after visit summary: Health Maintenance Topic Date Due Medicare Advantage Annual Wellness Visit (AWV) Never done RSV Immunization aged 60 or older (1 - 1-dose 60+ series) Never done Derm Melanoma Skin Check 02/19/2022 Influenza Vaccine (1) 12/20/2022 COVID-19 Vaccine (3 - 2022-24 season) 2022 Depression Screening 04/18/2023 Lipid Panel 10/19/2027 DTaP/Tdap/Td Vaccines (2 - Td or Tdap) 04/06/2028 Hepatitis B Vaccines Completed Pneumococcal Vaccine: 65+ Years Completed Zoster Vaccines Completed RSV Immunization under 20 Months Aged Out HIB Vaccines Aged Out IPV Vaccines Aged Out Hepatitis A Vaccines Aged Out Meningococcal Vaccine Aged Out Rotavirus Vaccines Aged Out HPV Vaccines Aged Out Orders Placed This Encounter Procedures Comprehensive metabolic panel Standing Status: Future Number of Occurrences: 1 Standing Expiration Date: 04/10/2024 Lipid panel Standing Status: Future Number of Occurrences: 1 Standing Expiration Date: 04/10/2024 Hemoglobin A1c Standing Status: Future Number of Occurrences: 1 Standing Expiration Date: 04/10/2024 PSA Total (Screening) Health Risk Assessment: General In general, how would you say your health is?: Good In the past 7 days, have you experienced any of the following: New or Increased Pain, New or Increased Fatigue, Loneliness, Social Isolation, Stress or Anger?: (!) Yes Select all that apply: (!) New or Increased Pain Do you get the social and emotional suppport you need?: Yes Interventions: Pain Issues: Patient declines any further evaluation / treatment for this issue Health Habits / Nutrition On average, how many days per week do you engage in moderate to strenous exercise (like a brisk walk)?: 1 day On average, how man minutes do you engage in exercise at this level?: 20 min Have you lost any weight without trying in the past 3 months? : No Have you seen the dentist within the past year?: Yes Interventions: Hearing / Vision Do you or your family notice any trouble with your hearing that hasn't been managed with hearing aids?: No Do you have difficulty driving, watching TV, or doing any of your daily activities because of your eyesight?: No Have you had an eye exam within the past year?: Yes No results found. Interventions: Safety Do you have a working smoke detector?: Yes Do you have any tripping hazards - loose or unsecured carpets or rugs?: No Do you have any tripping hazards - clutter in doorways, halls, or stairs?: No Do you have either shower bars, grab bars, non-slip mats or non-slip surfaces in your shower or bathtub? : Yes Do all your stairways have a railing or banister? : Yes Do you fasten your seatbelt when you are in a car?: Yes Interventions: ADL In the past 7 days, did you need help from others to perform any of the following everyday activities: Eating, dressing, grooming,bathing, toileting, or walking / balance? : No In the past 7 days, did you need help from others to take care of any of the following: laundry, housekeeping, banking / finances,shopping, telephone use, food preparation, transportation, or taking medications? : No Interventions: Living Will Do you have a living will?: Yes Interventions: Cognitive: Cognitive Screening: Mini-Cog Clock Drawing Test (CDT): 2 Words Recalled: 3 Total Score: 5 Total Score Interpretation: Normal Mini-Cog Interventions: Fall Risk: Interventions: No falls Depression Screening: Over the past 2 weeks, how often have you been bothered by any of the following problems? Little interest or pleasure in doing things: Several days Feeling down, depressed, or hopeless: Not at all Patient Health Questionnaire-2 Score: 1 If you checked off any problems on this questionnaire so far, How difficult have these problems made it for you to do your work, take care of things at home, or get along with other people?: Not difficult at all Interventions: Tobacco Use: Social History Tobacco Use Smoking Status Never Smokeless Tobacco Never Interventions: Alcohol Use: Audit Alcohol Screening Q2: How many drinks containing alcohol do you have on a typical day when you are drinking?: Patient does not drink Interventions: Drug Use: Drug Abuse Screening Test (DAST-10) Have you used drugs other than those required for medical reasons?: No Interventions: Review of Systems Constitutional: Negative for activity change, appetite change, chills, fever and unexpected weight change. HENT: Negative for ear pain and sore throat. Respiratory: Negative for shortness of breath. Cardiovascular: Positive for leg swelling. Negative for chest pain and palpitations. Gastrointestinal: Negative for abdominal pain, blood in stool, constipation and diarrhea. Genitourinary: Negative for dysuria, frequency, hematuria and urgency. Musculoskeletal: Negative for arthralgias and back pain. Skin: Negative. Neurological: Negative for weakness and numbness. Psychiatric/Behavioral: Negative for dysphoric mood. The patient is not nervous/anxious. Immunization History Administered Date(s) Administered Hep A, ped/adol, 2 dose 10/13/2007, 04/18/2008 Hep B, adult 10/13/2007, 11/16/2007, 04/18/2008 Influenza, High-dose Seasonal, Quadrivalent, Preservative Free 04/11/2020, 03/20/2021 Moderna SARS-CoV-2 Vaccination 06/21/2020, 08/04/2020 Pneumococcal Conjugate PCV 13 02/27/2017 Pneumococcal Polysaccharide PPSV23 04/06/2018 Td (adult), unspecified 12/21/2002 Tdap 04/06/2018 Typhoid, Parenteral 10/13/2007 Typhoid, ViCPs 10/13/2007 Zoster, Recombinant 08/11/2018, 10/15/2018 Allergies Allergen Reactions Seasonal Ic [Cholestatin] Outpatient Medications Prior to Visit Medication Sig Dispense Refill Carboxymethylcell-Hypromellose 0.25-0.3 % gel Apply to affected eye(s). clobetasol (Temovate) 0.05 % external solution APPLY TOPICALLY AT NIGHT FOR 2 WEEKS TAKING 1 WEEK OFF BEFORE REPEATING NEEDED FOR FLARES ketoconazole (NIZOral) 2 % shampoo WASH THE SCALP DAILY WHEN FLARED, THEN 1-2 TIMES PER WEEK FOR MAINTENANCE. LATHER & LET SIT FOR A FEW MINUTES BEFORE RINSING. Loratadine (CLARITIN PO) Take by mouth. oxybutynin XL (Ditropan-XL) 10 MG 24 hr tablet Take 10 mg by mouth daily. amLODIPine (Norvasc) 10 MG tablet Take 1 tablet (10 mg) by mouth daily. 90 tablet 1 valsartan (Diovan) 40 MG tablet Take 0.5 tablets (20 mg) by mouth daily. 45 tablet 1 [id number]-Brlbbtmma-Ntba 333-133-5 MG tablet Take by mouth. Cranberry, Vacc oxycoccus, (Cranberry Extract) 200 MG capsule Take by mouth. fluticasone (Flonase) 50 MCG/ACT nasal spray Administer 2 sprays into each nostril Nightly. Shake gently. Before first use, prime pump. After use, clean tip and replace cap. (Patient not taking: Reported on 04/10/2023) 16 g 3 furosemide (Lasix) 20 MG tablet Take 1 tablet (20 mg) by mouth daily for 2 days. (Patient not taking: Reported on 04/10/2023) 2 tablet 0 hydrocortisone 2.5 % cream Apply topically 2 times daily as needed for irritation or rash. (Patient not taking: Reported on 04/10/2023) 30 g 0 omega-3 (Fish Oil) 1000 MG capsule Take 1,000 mg by mouth. pregabalin (Lyrica) 75 MG capsule TAKE 1 CAPSULE BY MOUTH TWICE DAILY DIRECTED TURMERIC PO Take by mouth. No facility-administered medications prior to visit. Past Medical History: Diagnosis Date Acute deep vein thrombosis (DVT) of popliteal vein of left lower extremity (HCC) 11/18/2022 11/04/2022. xarelto x 3 months History of elevated PSA Hyperlipidemia Hypertension Poison gt 11/22/2020 Umbilical hernia without obstruction or gangrene SCHEDULED FOR THE SURGERY ON 05/28 Viral URI with cough 04/11/2022 Social History Socioeconomic History Marital status: Tobacco Use Smoking status: Never Smokeless tobacco: Never Vaping Use Vaping Use: Never used Substance and Sexual Activity Alcohol use: Never Drug use: No Sexual activity: Not Currently Social Determinants of Health Financial Resource Strain: Low Risk (04/10/2023) Overall Financial Resource Strain (CARDIA) Difficulty of Paying Living Expenses: Not very hard Food Insecurity: No Food Insecurity (04/10/2023) Hunger Vital Sign Worried About Running Out of Food in the Last Year: Never true Ran Out of Food in the Last Year: Never true Transportation Needs: No Transportation Needs (04/10/2023) PRAPARE - Transportation Lack of Transportation (Medical): No Lack of Transportation (Non-Medical): No Physical Activity: Insufficiently Active (04/10/2023) Exercise Vital Sign Days of Exercise per Week: 1 day Minutes of Exercise per Session: 20 min Past Surgical History: Procedure Laterality Date CATARACT EXTRACTION Right COLONOSCOPY HEMORRHOID SURGERY 1999 [facility] HERNIA REPAIR NOSE SURGERY A KID UMBILICAL HERNIA REPAIR 05/28/2019 Past Surgical History: Procedure Laterality Date CATARACT EXTRACTION Right COLONOSCOPY HEMORRHOID SURGERY 1999 [facility] HERNIA REPAIR NOSE SURGERY A KID UMBILICAL HERNIA REPAIR 05/28/2019 Family History Problem Relation Name Age of Onset Heart disease Mother Cancer Father Objective BP 128/79 Pulse 82 Ht 5' 10.5 (1.791 m) Wt 224 lb 12.8 oz (102 kg) SpO2 90% BMI 31.80 kg/m Physical Exam Vitals and nursing note reviewed. Constitutional: General: He is not in acute distress. Appearance: Normal appearance. HENT: Right Ear: Tympanic membrane, ear canal and external ear normal. Left Ear: Tympanic membrane, ear canal and external ear normal. Mouth/Throat: Mouth: Mucous membranes are moist. Pharynx: Oropharynx is clear. Eyes: Extraocular Movements: Extraocular movements intact. Conjunctiva/sclera: Conjunctivae normal. Pupils: Pupils are equal, round, and reactive to light. Neck: Thyroid: No thyromegaly. Vascular: No carotid bruit. Cardiovascular: Rate and Rhythm: Normal rate and regular rhythm. Heart sounds: Normal heart sounds. No murmur heard. Pulmonary: Effort: Pulmonary effort is normal. Breath sounds: Normal breath sounds. Abdominal: General: Bowel sounds are normal. Palpations: Abdomen is soft. Tenderness: There is no abdominal tenderness. Musculoskeletal: General: Normal range of motion. Cervical back: Neck supple. Lymphadenopathy: Cervical: No cervical adenopathy. Skin: General: Skin is warm and dry. Neurological: General: No focal deficit present. Mental Status: He is alert and oriented to person, place, and time. Psychiatric: Mood and Affect: Mood normal. Data Reviewed Labs: Imaging/Testing: Hermann Damian MD 04/10/2023 9:25 AM documented in this encounter [facility] 04-10-2023 History of Present illness Narrative Patient verified by last name and date of . Images from the original note were not included. [facility] [address] [facility] [id number] Visit type: Established Patient Reason for Visit: Medicare Annual Wellness Visit Subsequent, Blood Work, Health Maintenance (Flu vaccine- refuse/Rsv vaccine- not done/Dermatology skin check- refuse/3rd covid vaccine- pt states will not get any more ), and Edema (In ankles ) Assessment and Plan Problem List Items Addressed This Visit Nervous Benign head tremor Stable, has not gotten any worse Circulatory Essential hypertension, benign Controlled, we will stop his amlodipine due to swelling and have him take a full tablet of the valsartan 40 mg and have him start Maxide for the swelling. Relevant Medications valsartan (Diovan) 40 MG tablet Genitourinary OAB (overactive bladder) Stable, continue oxybutynin XL 10 mg Urge incontinence Stable, continue oxybutynin XL 10 mg Musculoskeletal Bilateral lower extremity edema Currently minimal recommend he keep his legs elevated we will stop his amlodipine and have him take Maxide Endocrine/Metabolic Prediabetes Stable, repeat A1c today Relevant Orders Comprehensive metabolic panel (Completed) Hemoglobin A1c (Completed) Other Hyperlipidemia Uncontrolled has refused statins in the past. Relevant Orders Lipid panel (Completed) Other Visit Diagnoses Medicare annual wellness visit, subsequent - Primary Screening for prostate cancer Relevant Orders PSA Total (Screening) (Completed) Follow up in about 6 months (around 10/10/2023). Subjective HPI Tennille comes in today for his annual Medicare well visit, is also here for follow-up on his multiple health issues and for discussing his medications and his leg swelling. His legs continue to have some swelling although it is not real significant right now he had taken some water pills which seemed to help and he is on amlodipine so we will stop that and see if that gets rid of the swelling. He has been on that medicine for years he says He is also here for follow-up on his hypertension and his OAB with urge incontinence prediabetes and hyperlipidemia. He would also like to have his PSA checked and sent to his urologist Dr. Bustamante. Edema Pertinent negative symptoms include no abdominal pain, no chest pain, no fever and no palpitations. I have reviewed and reconciled the medication list with the patient today. Current Outpatient Medications Medication Sig Dispense Refill Carboxymethylcell-Hypromellose 0.25-0.3 % gel Apply to affected eye(s). clobetasol (Temovate) 0.05 % external solution APPLY TOPICALLY AT NIGHT FOR 2 WEEKS TAKING 1 WEEK OFF BEFORE REPEATING NEEDED FOR FLARES ketoconazole (NIZOral) 2 % shampoo WASH THE SCALP DAILY WHEN FLARED, THEN 1-2 TIMES PER WEEK FOR MAINTENANCE. LATHER & LET SIT FOR A FEW MINUTES BEFORE RINSING. Loratadine (CLARITIN PO) Take by mouth. oxybutynin XL (Ditropan-XL) 10 MG 24 hr tablet Take 10 mg by mouth daily. triamterene-hydrochlorothiazide (Maxzide-25) 37.5-25 MG tablet Take 1 tablet by mouth daily. 30 tablet 0 valsartan (Diovan) 40 MG tablet Take 0.5 tablets (20 mg) by mouth daily. 90 tablet 1 No current facility-administered medications for this visit. Medications Discontinued During This Encounter Medication Reason [id number] 333-133-5 MG tablet Therapy completed Cranberry, Vacc oxycoccus, (Cranberry Extract) 200 MG capsule Therapy completed fluticasone (Flonase) 50 MCG/ACT nasal spray Therapy completed furosemide (Lasix) 20 MG tablet Therapy completed hydrocortisone 2.5 % cream Therapy completed omega-3 (Fish Oil) 1000 MG capsule Therapy completed pregabalin (Lyrica) 75 MG capsule Therapy completed TURMERIC PO Therapy completed valsartan (Diovan) 40 MG tablet Reorder amLODIPine (Norvasc) 10 MG tablet Side effects List of current healthcare providers: Patient Care Team: Hermann Damian MD as PCP - General The following health maintenance schedule was reviewed with the patient and provided in printed form in the after visit summary: Health Maintenance Topic Date Due Medicare Advantage Annual Wellness Visit (AWV) Never done RSV Immunization aged 60 or older (1 - 1-dose 60+ series) Never done Derm Melanoma Skin Check 02/19/2022 Influenza Vaccine (1) 12/20/2022 COVID-19 Vaccine (3 - season) 2022 Depression Screening 04/10/2024 DTaP/Tdap/Td Vaccines (2 - Td or Tdap) 04/06/2028 Lipid Panel 04/10/2028 Hepatitis B Vaccines Completed Pneumococcal Vaccine: 65+ Years Completed Zoster Vaccines Completed RSV Immunization under 20 Months Aged Out HIB Vaccines Aged Out IPV Vaccines Aged Out Hepatitis A Vaccines Aged Out Meningococcal Vaccine Aged Out Rotavirus Vaccines Aged Out HPV Vaccines Aged Out Orders Placed This Encounter Procedures Comprehensive metabolic panel Standing Status: Future Number of Occurrences: 1 Standing Expiration Date: 04/10/2024 Lipid panel Standing Status: Future Number of Occurrences: 1 Standing Expiration Date: 04/10/2024 Hemoglobin A1c Standing Status: Future Number of Occurrences: 1 Standing Expiration Date: 04/10/2024 PSA Total (Screening) Health Risk Assessment: General In general, how would you say your health is?: Good In the past 7 days, have you experienced any of the following: New or Increased Pain, New or Increased Fatigue, Loneliness, Social Isolation, Stress or Anger?: (!) Yes Select all that apply: (!) New or Increased Pain Do you get the social and emotional suppport you need?: Yes Interventions: Pain Issues: Patient declines any further evaluation / treatment for this issue Health Habits / Nutrition On average, how many days per week do you engage in moderate to strenous exercise (like a brisk walk)?: 1 day On average, how man minutes do you engage in exercise at this level?: 20 min Have you lost any weight without trying in the past 3 months? : No Have you seen the dentist within the past year?: Yes Interventions: Hearing / Vision Do you or your family notice any trouble with your hearing that hasn't been managed with hearing aids?: No Do you have difficulty driving, watching TV, or doing any of your daily activities because of your eyesight?: No Have you had an eye exam within the past year?: Yes No results found. Interventions: Safety Do you have a working smoke detector?: Yes Do you have any tripping hazards - loose or unsecured carpets or rugs?: No Do you have any tripping hazards - clutter in doorways, halls, or stairs?: No Do you have either shower bars, grab bars, non-slip mats or non-slip surfaces in your shower or bathtub? : Yes Do all your stairways have a railing or banister? : Yes Do you fasten your seatbelt when you are in a car?: Yes Interventions: ADL In the past 7 days, did you need help from others to perform any of the following everyday activities: Eating, dressing, grooming,bathing, toileting, or walking / balance? : No In the past 7 days, did you need help from others to take care of any of the following: laundry, housekeeping, banking / finances,shopping, telephone use, food preparation, transportation, or taking medications? : No Interventions: Living Will Do you have a living will?: Yes Interventions: Cognitive: Cognitive Screening: Mini-Cog Clock Drawing Test (CDT): 2 Words Recalled: 3 Total Score: 5 Total Score Interpretation: Normal Mini-Cog Interventions: Fall Risk: Interventions: No falls Depression Screening: Over the past 2 weeks, how often have you been bothered by any of the following problems? Little interest or pleasure in doing things: Several days Feeling down, depressed, or hopeless: Not at all Patient Health Questionnaire-2 Score: 1 If you checked off any problems on this questionnaire so far, How difficult have these problems made it for you to do your work, take care of things at home, or get along with other people?: Not difficult at all Interventions: Tobacco Use: Social History Tobacco Use Smoking Status Never Smokeless Tobacco Never Interventions: Alcohol Use: Audit Alcohol Screening Q2: How many drinks containing alcohol do you have on a typical day when you are drinking?: Patient does not drink Interventions: Drug Use: Drug Abuse Screening Test (DAST-10) Have you used drugs other than those required for medical reasons?: No Interventions: Review of Systems Constitutional: Negative for activity change, appetite change, chills, fever and unexpected weight change. HENT: Negative for ear pain and sore throat. Respiratory: Negative for shortness of breath. Cardiovascular: Positive for leg swelling. Negative for chest pain and palpitations. Gastrointestinal: Negative for abdominal pain, blood in stool, constipation and diarrhea. Genitourinary: Negative for dysuria, frequency, hematuria and urgency. Musculoskeletal: Negative for arthralgias and back pain. Skin: Negative. Neurological: Negative for weakness and numbness. Psychiatric/Behavioral: Negative for dysphoric mood. The patient is not nervous/anxious. Immunization History Administered Date(s) Administered Hep A, ped/adol, 2 dose 10/13/2007, 04/18/2008 Hep B, adult 10/13/2007, 11/16/2007, 04/18/2008 Influenza, High-dose Seasonal, Quadrivalent, Preservative Free 04/11/2020, 03/20/2021 Moderna SARS-CoV-2 Vaccination 06/21/2020, 08/04/2020 Pneumococcal Conjugate PCV 13 02/27/2017 Pneumococcal Polysaccharide PPSV23 04/06/2018 Td (adult), unspecified 12/21/2002 Tdap 04/06/2018 Typhoid, Parenteral 10/13/2007 Typhoid, ViCPs 10/13/2007 Zoster, Recombinant 08/11/2018, 10/15/2018 Allergies Allergen Reactions Seasonal Ic [Cholestatin] Outpatient Medications Prior to Visit Medication Sig Dispense Refill Carboxymethylcell-Hypromellose 0.25-0.3 % gel Apply to affected eye(s). clobetasol (Temovate) 0.05 % external solution APPLY TOPICALLY AT NIGHT FOR 2 WEEKS TAKING 1 WEEK OFF BEFORE REPEATING NEEDED FOR FLARES ketoconazole (NIZOral) 2 % shampoo WASH THE SCALP DAILY WHEN FLARED, THEN 1-2 TIMES PER WEEK FOR MAINTENANCE. LATHER & LET SIT FOR A FEW MINUTES BEFORE RINSING. Loratadine (CLARITIN PO) Take by mouth. oxybutynin XL (Ditropan-XL) 10 MG 24 hr tablet Take 10 mg by mouth daily. amLODIPine (Norvasc) 10 MG tablet Take 1 tablet (10 mg) by mouth daily. 90 tablet 1 valsartan (Diovan) 40 MG tablet Take 0.5 tablets (20 mg) by mouth daily. 45 tablet 1 [id number]-[id number]-Nhvo 333-133-5 MG tablet Take by mouth. Cranberry, Vacc oxycoccus, (Cranberry Extract) 200 MG capsule Take by mouth. fluticasone (Flonase) 50 MCG/ACT nasal spray Administer 2 sprays into each nostril Nightly. Shake gently. Before first use, prime pump. After use, clean tip and replace cap. (Patient not taking: Reported on 04/10/2023) 16 g 3 furosemide (Lasix) 20 MG tablet Take 1 tablet (20 mg) by mouth daily for 2 days. (Patient not taking: Reported on 04/10/2023) 2 tablet 0 hydrocortisone 2.5 % cream Apply topically 2 times daily as needed for irritation or rash. (Patient not taking: Reported on 04/10/2023) 30 g 0 omega-3 (Fish Oil) 1000 MG capsule Take 1,000 mg by mouth. pregabalin (Lyrica) 75 MG capsule TAKE 1 CAPSULE BY MOUTH TWICE DAILY DIRECTED TURMERIC PO Take by mouth. No facility-administered medications prior to visit. Past Medical History: Diagnosis Date Acute deep vein thrombosis (DVT) of popliteal vein of left lower extremity (HCC) 11/18/2022 11/04/2022. xarelto x 3 months History of elevated PSA Hyperlipidemia Hypertension Poison gt 11/22/2020 Umbilical hernia without obstruction or gangrene SCHEDULED FOR THE SURGERY ON 05/28 Viral URI with cough 04/11/2022 Social History Socioeconomic History Marital status: Tobacco Use Smoking status: Never Smokeless tobacco: Never Vaping Use Vaping Use: Never used Substance and Sexual Activity Alcohol use: Never Drug use: No Sexual activity: Not Currently Social Determinants of Health Financial Resource Strain: Low Risk (04/10/2023) Overall Financial Resource Strain (CARDIA) Difficulty of Paying Living Expenses: Not very hard Food Insecurity: No Food Insecurity (04/10/2023) Hunger Vital Sign Worried About Running Out of Food in the Last Year: Never true Ran Out of Food in the Last Year: Never true Transportation Needs: No Transportation Needs (04/10/2023) PRAPARE - Transportation Lack of Transportation (Medical): No Lack of Transportation (Non-Medical): No Physical Activity: Insufficiently Active (04/10/2023) Exercise Vital Sign Days of Exercise per Week: 1 day Minutes of Exercise per Session: 20 min Past Surgical History: Procedure Laterality Date CATARACT EXTRACTION Right COLONOSCOPY HEMORRHOID SURGERY 1999 [facility] HERNIA REPAIR NOSE SURGERY A KID UMBILICAL HERNIA REPAIR 05/28/2019 Past Surgical History: Procedure Laterality Date CATARACT EXTRACTION Right COLONOSCOPY HEMORRHOID SURGERY 1999 [facility] HERNIA REPAIR NOSE SURGERY A KID UMBILICAL HERNIA REPAIR 05/28/2019 Family History Problem Relation Name Age of Onset Heart disease Mother Cancer Father Objective BP 128/79 Pulse 82 Ht 5' 10.5 (1.791 m) Wt 224 lb 12.8 oz (102 kg) SpO2 90% BMI 31.80 kg/m Physical Exam Vitals and nursing note reviewed. Constitutional: General: He is not in acute distress. Appearance: Normal appearance. HENT: Right Ear: Tympanic membrane, ear canal and external ear normal. Left Ear: Tympanic membrane, ear canal and external ear normal. Mouth/Throat: Mouth: Mucous membranes are moist. Pharynx: Oropharynx is clear. Eyes: Extraocular Movements: Extraocular movements intact. Conjunctiva/sclera: Conjunctivae normal. Pupils: Pupils are equal, round, and reactive to light. Neck: Thyroid: No thyromegaly. Vascular: No carotid bruit. Cardiovascular: Rate and Rhythm: Normal rate and regular rhythm. Heart sounds: Normal heart sounds. No murmur heard. Pulmonary: Effort: Pulmonary effort is normal. Breath sounds: Normal breath sounds. Abdominal: General: Bowel sounds are normal. Palpations: Abdomen is soft. Tenderness: There is no abdominal tenderness. Musculoskeletal: General: Normal range of motion. Cervical back: Neck supple. Lymphadenopathy: Cervical: No cervical adenopathy. Skin: General: Skin is warm and dry. Neurological: General: No focal deficit present. Mental Status: He is alert and oriented to person, place, and time. Psychiatric: Mood and Affect: Mood normal. Data Reviewed Labs: Imaging/Testing: Hermann Damian MD 04/11/2023 9:24 AM documented in this encounter [facility] 04-07-2023 Evaluation + Plan note Associated Problem(s): Bilateral lower extremity edema Bilateral lower extremity left greater than right. Ultrasound negative for DVT on the left. No chest pain or shortness of breath so I do not think this is cardiac etiology, recent CMP stable. CBC normal. Still suspect this was secondary to recently starting Lyrica which he has now been off of for about 1 week.. would expect this to improve. May be taking longer d/t concomitant use of amlodipine. Will provide lasix 20 mg daily x 2 days and re-evaluate in office. Continue to elevate legs intermittently throughout the day. -if not improving much by follow up - could consider decreasing or stopping the CCB and increasing the valsartan for blood pressure control-this may help alleviate some of the lower leg edema. [facility] 04-07-2023 Miscellaneous Notes Associated Problem(s): Bilateral lower extremity edema Bilateral lower extremity left greater than right. Ultrasound negative for DVT on the left. No chest pain or shortness of breath so I do not think this is cardiac etiology, recent CMP stable. CBC normal. Still suspect this was secondary to recently starting Lyrica which he has now been off of for about 1 week.. would expect this to improve. May be taking longer d/t concomitant use of amlodipine. Will provide lasix 20 mg daily x 2 days and re-evaluate in office. Continue to elevate legs intermittently throughout the day. -if not improving much by follow up - could consider decreasing or stopping the CCB and increasing the valsartan for blood pressure control-this may help alleviate some of the lower leg edema. Associated Problem(s): Dermatitis Bilateral lower extremities, resolved documented in this encounter [facility] 04-07-2023 Evaluation + Plan note Associated Problem(s): Dermatitis Bilateral lower extremities, resolved [facility] 04-07-2023 History of Present illness Narrative Patient was identified by name and Date of . Images from the original note were not included. 04/07/2023 Ciro Sales (: 1935) is a 88 y.o. male , Established patient, here for evaluation of the following chief complaint(s): Leg Swelling ASSESSMENT/PLAN: 1. Bilateral lower extremity edema Assessment & Plan: Bilateral lower extremity left greater than right. Ultrasound negative for DVT on the left. No chest pain or shortness of breath so I do not think this is cardiac etiology, recent CMP stable. CBC normal. Still suspect this was secondary to recently starting Lyrica which he has now been off of for about 1 week.. would expect this to improve. May be taking longer d/t concomitant use of amlodipine. Will provide lasix 20 mg daily x 2 days and re-evaluate in office. Continue to elevate legs intermittently throughout the day. -if not improving much by follow up - could consider decreasing or stopping the CCB and increasing the valsartan for blood pressure control-this may help alleviate some of the lower leg edema. Orders: - furosemide (Lasix) 20 MG tablet; Take 1 tablet (20 mg) by mouth daily for 2 days., Starting 04/07/2023, Until Fri04/09/2023, Normal 2. Dermatitis Assessment & Plan: Bilateral lower extremities, resolved 3. Essential hypertension, benign Follow up for with primary care provider as scheduled. SUBJECTIVE/OBJECTIVE: HPI - Ciro Sales (: 1935) is a 88 y.o. male , Established patient, here for the evaluation of the following chief complaint(s): Leg Swelling Presents today for continued bilateral lower leg swelling. Left greater than right. 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 BNP still pending. Patient had recently started on Lyrica and it was thought that the swelling was secondary to the Lyrica which he had stopped 2 days prior from last weeks appt. he also was having some redness and itching of the left lower extremity, this has improved-nearly resolved with hydrocortisone cream. States that he has been keeping his legs elevated intermittently throughout the day but they have not improved much. Denies any fever or chills, skin on his bilateral lower extremities is mildly tender to touch. Denies any chest pain or increased shortness of breath. His weight is down 6 pounds from 04/03/2023. Prior to Admission medications Medication Sig Start Date End Date Taking? Authorizing Provider amLODIPine (Norvasc) 10 MG tablet Take 1 tablet (10 mg) by mouth daily. 10/18/22 Hermann Damian MD [id number]-[id number] 333-133-5 MG tablet Take by mouth. Historical Provider, Carboxymethylcell-Hypromellose 0.25-0.3 % gel Apply to affected eye(s). Historical Provider, Robert Irwin oxycoccus, (Cranberry Extract) 200 MG capsule Take by mouth. Historical Provider, fluticasone (Flonase) 50 MCG/ACT nasal spray Administer 2 sprays into each nostril Nightly. Shake gently. Before first use, prime pump. After use, clean tip and replace cap. 11/04/22 11/04/23 GretchenKALLIE Quintero CNP hydrocortisone 2.5 % cream Apply topically 2 times daily as needed for irritation or rash. 04/03/23 04/02/24 GretchenKALLIE Quintero CNP omega-3 (Fish Oil) 1000 MG capsule Take 1,000 mg by mouth. Historical Provider, oxybutynin XL (Ditropan-XL) 10 MG 24 hr tablet Take 10 mg by mouth daily. 02/11/22 Historical Provider, MD DOYLEMERLIZZ PO Take by mouth. Historical Provider, valsartan (Diovan) 40 MG tablet Take 0.5 tablets (20 mg) by mouth daily. 01/06/23 07/05/23 GretchenKALLIE Robert CNP rivaroxaban (Xarelto) 20 MG tablet Take 1 tablet (20 mg) by mouth daily. Take with food. Do not start before November 26, 2022. 11/26/22 04/03/23 Gretchen KALLIE Cabrera CNP Review of Systems Constitutional: Negative for appetite change, chills, fatigue and unexpected weight change. Respiratory: Negative. Cardiovascular: Positive for leg swelling. Negative for chest pain and palpitations. Genitourinary: Negative. Neurological: Negative. Vitals: 04/07/23 0938 04/07/23 0952 BP: (!) 155/79 (!) 148/83 Pulse: 89 Resp: 24 Temp: 36.9 C (98.4 F) TempSrc: Infrared SpO2: 94% Weight: 223 lb (101 kg) Physical Exam Constitutional: General: He is not in acute distress. Appearance: Normal appearance. He is obese. He is not ill-appearing. HENT: Head: Normocephalic and atraumatic. Mouth/Throat: Mouth: Mucous membranes are moist. Pharynx: Oropharynx is clear. Eyes: Conjunctiva/sclera: Conjunctivae normal. Cardiovascular: Rate and Rhythm: Normal rate and regular rhythm. Pulses: Normal pulses. Heart sounds: Normal heart sounds. Pulmonary: Effort: Pulmonary effort is normal. Breath sounds: Normal breath sounds. Musculoskeletal: Right lower leg: Edema (+1 pitting to midshin) present. Left lower leg: Edema (+2 pitting to midshin) present. Neurological: Mental Status: He is alert and oriented to person, place, and time. Comments: Head tremor An electronic signature was used to authenticate this note. KALLIE Carter CNP 04/07/2023 11:58 AM documented in this encounter [facility] 04-07-2023 Instructions KALLIE Carter CNP - 04/07/2023 9:40 AM EST Take furosemide 20 mg daily x 2 days. Elevate legs at least every 2-3 hours for 20 minutes at a time. documented in this encounter [facility] 04-07-2023 Telephone encounter Note S: Patient spoke with [facility] nurse regarding unchanged swelling of lower legs. B: Onset of symptoms/concern 04/02/23 Last OV 04/03/23 A: States he continues to have swelling in bilateral legs in the ankles up to the knees. They both feel sore. States the swelling is unchanged from last visit. Denies any redness of legs, chest pain or shortness of breath. States he has elevated his leg and he is sleeping in recliner for his back. Request to schedule follow up appointment. R: Appointment scheduled for 04/07/23 at 940 am. Insurance verified with patient as [facility]. Patient denies the following: any signs or symptoms of Covid, exposure to Covid in the last 5 days, or having tested positive for Covid in the last 5 days. Approved time with Office staff member Yuliya. Encouraged patient to elevated legs throughout the day and to limit sodium intake. Patient understands care advice. No further needs at this time. Patient instructed to call back with new or worsening symptoms. Reason for Disposition Patient wants to be seen Protocols used: Leg Swelling and [id number] [facility] 04-07-2023 Miscellaneous Notes S: Patient spoke with [facility] nurse regarding unchanged swelling of lower legs. B: Onset of symptoms/concern 04/02/23 Last OV 04/03/23 A: States he continues to have swelling in bilateral legs in the ankles up to the knees. They both feel sore. States the swelling is unchanged from last visit. Denies any redness of legs, chest pain or shortness of breath. States he has elevated his leg and he is sleeping in recliner for his back. Request to schedule follow up appointment. R: Appointment scheduled for 04/07/23 at 940 am. Insurance verified with patient as [facility]. Patient denies the following: any signs or symptoms of Covid, exposure to Covid in the last 5 days, or having tested positive for Covid in the last 5 days. Approved time with Office staff member Yuliya. Encouraged patient to elevated legs throughout the day and to limit sodium intake. Patient understands care advice. No further needs at this time. Patient instructed to call back with new or worsening symptoms. Reason for Disposition Patient wants to be seen Protocols used: Leg Swelling and [id number] documented in this encounter [facility] 04-03-2023 Evaluation + Plan note Associated Problem(s): Dermatitis Bilateral lower extremities secondary to venous stasis. Will prescribe topical steroid twice daily x 7 days. [facility] 04-03-2023 Miscellaneous Notes Associated Problem(s): Dermatitis Bilateral lower extremities secondary to venous stasis. Will prescribe topical steroid twice daily x 7 days. Associated Problem(s): Swelling of left lower extremity Highly suspect secondary to Lyrica, swelling slightly worse than the right likely due to to history of DVT in the left lower extremity. Will obtain ultrasound of the left lower leg just to make sure there is no DVT. Recommend elevation of bilateral lower extremities intermittently throughout the day Associated Problem(s): Bilateral lower extremity edema Highly suspect secondary to Lyrica. Advised patient to remain off of the medication and notify the prescriber. He denies any shortness of breath or chest pain so I doubt cardiac etiology. We will obtain CMP and BNP today. Associated Problem(s): Essential hypertension, benign Controlled. Continue valsartan 20 mg daily and amlodipine 10 mg daily documented in this encounter [facility] 04-03-2023 Evaluation + Plan note Associated Problem(s): Swelling of left lower extremity Highly suspect secondary to Lyrica, swelling slightly worse than the right likely due to to history of DVT in the left lower extremity. Will obtain ultrasound of the left lower leg just to make sure there is no DVT. Recommend elevation of bilateral lower extremities intermittently throughout the day [facility] 04-03-2023 Evaluation + Plan note Associated Problem(s): Bilateral lower extremity edema Highly suspect secondary to Lyrica. Advised patient to remain off of the medication and notify the prescriber. He denies any shortness of breath or chest pain so I doubt cardiac etiology. We will obtain CMP and BNP today. [facility] 04-03-2023 Evaluation + Plan note Associated Problem(s): Essential hypertension, benign Controlled. Continue valsartan 20 mg daily and amlodipine 10 mg daily [facility] 04-03-2023 History of Present illness Narrative Patient was identified by name and Date of . Images from the original note were not included. 04/03/2023 Ciro Sales (: 1935) is a 88 y.o. male , Established patient, here for evaluation of the following chief complaint(s): Joint Swelling (Bilateral ankles) ASSESSMENT/PLAN: 1. Swelling of left lower extremity Assessment & Plan: Highly suspect secondary to Lyrica, swelling slightly worse than the right likely due to to history of DVT in the left lower extremity. Will obtain ultrasound of the left lower leg just to make sure there is no DVT. Recommend elevation of bilateral lower extremities intermittently throughout the day Orders: - Vascular US lower extremity venous duplex left - NT PRO BNP - Comprehensive metabolic panel - CBC 2. Bilateral lower extremity edema Assessment & Plan: Highly suspect secondary to Lyrica. Advised patient to remain off of the medication and notify the prescriber. He denies any shortness of breath or chest pain so I doubt cardiac etiology. We will obtain CMP and BNP today. 3. Essential hypertension, benign Assessment & Plan: Controlled. Continue valsartan 20 mg daily and amlodipine 10 mg daily 4. Dermatitis Assessment & Plan: Bilateral lower extremities secondary to venous stasis. Will prescribe topical steroid twice daily x 7 days. Orders: - hydrocortisone 2.5 % cream; Apply topically 2 times daily as needed for irritation or rash., Starting Alyce 04/03/2023, Until Fri04/02/2024 at 2359, Normal Follow up for as directed pending test results. SUBJECTIVE/OBJECTIVE: ALFREDA - Ciro Sales (: 1935) is a 88 y.o. male , Established patient, here for the evaluation of the following chief complaint(s): Joint Swelling (Bilateral ankles) Presents today for some lower leg swelling that started a couple weeks ago. States that he was recently started on Lyrica for his back pain also about 2 weeks ago. States that he did not think it was helping and he stopped the medication about 2 days ago. He does have a history of a DVT in the left lower extremity, has been elevating his legs intermittently throughout the day. Swelling is slightly greater on the left than on the right, also has some redness and itchiness to the left lower leg. Denies any chest pain or shortness of breath. He does state that he has gained weight over the last few months. States that he has been eating too much. Is scheduled next week for another steroid back injection. Chiropractor last week worked on back/hips. States that he got worked over pretty good might have been too much. Will be going on a cruise Apr 27-. Prior to Admission medications Medication Sig Start Date End Date Taking? Authorizing Provider amLODIPine (Norvasc) 10 MG tablet Take 1 tablet (10 mg) by mouth daily. 10/18/22 Yes Hermann Damian MD [id number] 333-133-5 MG tablet Take by mouth. Yes Historical Provider, Carboxymethylcell-Hypromellose 0.25-0.3 % gel Apply to affected eye(s). Yes Historical Provider, Robert Irwin oxycoccus, (Cranberry Extract) 200 MG capsule Take by mouth. Yes Historical Provider, fluticasone (Flonase) 50 MCG/ACT nasal spray Administer 2 sprays into each nostril Nightly. Shake gently. Before first use, prime pump. After use, clean tip and replace cap. 11/04/22 11/04/23 Yes KALLIE Carter CNP omega-3 (Fish Oil) 1000 MG capsule Take 1,000 mg by mouth. Yes Historical Provider, oxybutynin XL (Ditropan-XL) 10 MG 24 hr tablet Take 10 mg by mouth daily. 02/11/22 Yes Historical Provider, MD DOYLEMERLIZZ PO Take by mouth. Yes Historical Provider, valsartan (Diovan) 40 MG tablet Take 0.5 tablets (20 mg) by mouth daily. 01/06/23 07/05/23 Yes KALLIE Carter CNP gabapentin (Neurontin) 100 MG capsule Take 300 mg by mouth in the morning and 300 mg in the evening. 09/12/22 Historical Provider, pregabalin (Lyrica) 75 MG capsule TAKE 1 CAPSULE BY MOUTH TWICE DAILY DIRECTED 03/20/23 Historical Provider, rivaroxaban (Xarelto) 20 MG tablet Take 1 tablet (20 mg) by mouth daily. Take with food. Do not start before November 26, 2022. 11/26/22 02/24/23 KALLIE Carter CNP Review of Systems Constitutional: Negative for activity change, chills, fatigue and fever. Respiratory: Negative. Cardiovascular: Positive for leg swelling. Negative for chest pain and palpitations. Gastrointestinal: Negative. Genitourinary: Negative for difficulty urinating. Musculoskeletal: Positive for back pain. Neurological: Positive for tremors. Negative for dizziness and headaches. Vitals: 04/03/23 1444 BP: 132/82 Pulse: 83 Resp: 18 Temp: 37 C (98.6 F) TempSrc: Infrared SpO2: 92% Weight: 229 lb 6.4 oz (104 kg) Physical Exam Constitutional: General: He is not in acute distress. Appearance: Normal appearance. He is not ill-appearing. HENT: Head: Normocephalic and atraumatic. Mouth/Throat: Mouth: Mucous membranes are moist. Pharynx: Oropharynx is clear. Cardiovascular: Rate and Rhythm: Normal rate and regular rhythm. Pulses: Normal pulses. Heart sounds: Normal heart sounds. Pulmonary: Effort: Pulmonary effort is normal. Breath sounds: Normal breath sounds. Musculoskeletal: Right lower leg: Edema present. Left lower leg: Edema (Left greater than right, nonpitting to mid duggan) present. Skin: General: Skin is warm and dry. Findings: Erythema and rash (Faint erythematous area to left lower leg, no increased warmth) present. Neurological: Mental Status: He is alert and oriented to person, place, and time. An electronic signature was used to authenticate this note. KALLIE Carter CNP 04/03/2023 6:35 PM documented in this encounter [facility] 04-03-2023 Instructions KALLIE Carter CNP - 04/03/2023 2:40 PM EST Stop pregablin, elevate legs intermittently throughout the day. Believe swelling started d/t the pregablin. documented in this encounter [facility] 04-03-2023 Telephone encounter Note S: Patient called the clinical access center with complaint of both ankle swelling. B: Ongoing just noticed it yesterday. A: Patient c/o Both ankles look like they have swelling. He states the swelling is not too bad but his left ankle is a little sore when he bends it back and forth. Denies fever, chest pain or difficulty breathing. Has been sleeping in the chair recently because of back and hip pain elevating his legs. R: Appointment scheduled 04/03/23. Insurance verified. Instructed to bring medications to [facility].. Home Care advice given. Patient instructed to call back with worsening symptoms, concerns or questions. Patient verbalized understanding. Message to the office for review by the provider and needs recommendation from Provider for treatment going forward. Reason for Disposition Patient wants to be seen Protocols used: Ankle [id number] [facility] 04-03-2023 Miscellaneous Notes S: Patient called the clinical access center with complaint of both ankle swelling. B: Ongoing just noticed it yesterday. A: Patient c/o Both ankles look like they have swelling. He states the swelling is not too bad but his left ankle is a little sore when he bends it back and forth. Denies fever, chest pain or difficulty breathing. Has been sleeping in the chair recently because of back and hip pain elevating his legs. R: Appointment scheduled 04/03/23. Insurance verified. Instructed to bring medications to [facility].. Home Care advice given. Patient instructed to call back with worsening symptoms, concerns or questions. Patient verbalized understanding. Message to the office for review by the provider and needs recommendation from Provider for treatment going forward. Reason for Disposition Patient wants to be seen Protocols used: Ankle [id number] documented in this encounter [facility] 12-16-2022 Evaluation + Plan note Associated Problem(s): Essential hypertension, benign Controlled. Continue amlodipine 10 mg daily, losartan 20 mg daily. Follow-up in a couple weeks for recheck. [facility] 12-16-2022 Miscellaneous Notes Associated Problem(s): Essential hypertension, benign Controlled. Continue amlodipine 10 mg daily, losartan 20 mg daily. Follow-up in a couple weeks for recheck. Associated Problem(s): Acute deep vein thrombosis (DVT) of popliteal vein of left lower extremity (HCC) Symptoms resolved continue Xarelto for the 3-month recommended treatment duration Addended by: GRETCHEN CABRERA on: 12/18/2022 10:47 AM Modules accepted: Level of Service documented in this encounter [facility] 12-16-2022 Evaluation + Plan note Associated Problem(s): Acute deep vein thrombosis (DVT) of popliteal vein of left lower extremity (HCC) Symptoms resolved continue Xarelto for the 3-month recommended treatment duration [facility] 12-16-2022 History of Present illness Narrative Images from the original note were not included. 12/16/2022 Ciro Sales (: 1935) is a 87 y.o. male , Established patient, here for evaluation of the following chief complaint(s): Follow-up and Leg Pain ASSESSMENT/PLAN: 1. Essential hypertension, benign Assessment & Plan: Controlled. Continue amlodipine 10 mg daily, losartan 20 mg daily. Follow-up in a couple weeks for recheck. Orders: - valsartan (Diovan) 40 MG tablet; Take 0.5 tablets (20 mg) by mouth daily., Starting 12/16/2022, Until Fri02/14/2023, Phone In 2. Acute deep vein thrombosis (DVT) of popliteal vein of left lower extremity (HCC) Assessment & Plan: Symptoms resolved continue Xarelto for the 3-month recommended treatment duration Follow up in about 3 weeks (around 01/06/2023). SUBJECTIVE/OBJECTIVE: HPI - Ciro Sales (: 1935) is a 87 y.o. male , Established patient, here for the evaluation of the following chief complaint(s): Follow-up and Leg Pain Presents for follow-up blood pressure check. Patient currently on amlodipine 10 mg daily, was recently taken off of lisinopril about a month ago for patient concerns causing his cough and was placed on valsartan 20 mg daily. He reports his cough is much better. Continues to have watery itchy eyes has eyedrops and antihistamine that he uses. Known dry eyes and sees an lineworker. Left lower leg edema has pretty much resolved from DVT. Reports taking Xarelto daily as directed. Low back pain with sciatica-recently had back injection that reports symptoms have improved however intermittently has some leg spasms in the right leg. No change in bowel or bladder no new numbness or tingling Has been going camping with family most recently at [facility]. Went well. Prior to Admission medications Medication Sig Start Date End Date Taking? Authorizing Provider amLODIPine (Norvasc) 10 MG tablet Take 1 tablet (10 mg) by mouth daily. 10/18/22 Hermann Damian MD Omwardm-Cynkqdlls-Daba 333-133-5 MG tablet Take by mouth. Historical Provider, Carboxymethylcell-Hypromellose 0.25-0.3 % gel Apply to affected eye(s). Historical Provider, Robert rIwin oxycoccus, (Cranberry Extract) 200 MG capsule Take by mouth. Historical Provider, fluticasone (Flonase) 50 MCG/ACT nasal spray Administer 2 sprays into each nostril Nightly. Shake gently. Before first use, prime pump. After use, clean tip and replace cap. 11/04/22 11/04/23 KALLIE Carter CNP gabapentin (Neurontin) 100 MG capsule Take 300 mg by mouth in the morning and 300 mg in the evening. 09/12/22 Historical Provider, omega-3 (Fish Oil) 1000 MG capsule Take 1,000 mg by mouth. Historical Provider, oxybutynin XL (Ditropan-XL) 10 MG 24 hr tablet Take 10 mg by mouth daily. 02/11/22 Historical Provider, rivaroxaban (Xarelto) 15 MG tablet Take 1 tablet (15 mg) by mouth 2 times daily for 21 days. Take with food. 11/04/22 11/25/22 KALLIE Carter CNP rivaroxaban (Xarelto) 20 MG tablet Take 1 tablet (20 mg) by mouth daily. Take with food. Do not start before November 26, 2022. 11/26/22 02/24/23 KALLIE Carter CNP TURMERIC PO Take by mouth. Historical Provider, valsartan (Diovan) 40 MG tablet Take 0.5 tablets (20 mg) by mouth daily. 11/18/22 01/17/23 KALLIE Carter CNP Review of Systems Constitutional: Negative for activity change, appetite change, diaphoresis, fatigue and fever. Eyes: Negative for visual disturbance. Respiratory: Positive for cough (Reports improving). Negative for chest tightness and shortness of breath. Neurological: Positive for tremors. Negative for dizziness and headaches. Vitals: 12/16/22 0913 BP: 137/69 Pulse: 69 Resp: 24 Temp: 36.6 C (97.8 F) TempSrc: Infrared Weight: 208 lb 12.8 oz (94.7 kg) Physical Exam Constitutional: General: He is not in acute distress. Appearance: Normal appearance. He is not ill-appearing. HENT: Head: Normocephalic and atraumatic. Cardiovascular: Rate and Rhythm: Normal rate and regular rhythm. Pulses: Normal pulses. Heart sounds: Normal heart sounds. Pulmonary: Effort: Pulmonary effort is normal. Breath sounds: Normal breath sounds. Musculoskeletal: General: No tenderness. Right lower leg: No edema. Left lower leg: Edema (no redness- edema -trace only) present. Neurological: Mental Status: He is alert and oriented to person, place, and time. Motor: Tremor present. An electronic signature was used to authenticate this note. KALLIE Carter CNP 12/16/2022 10:47 AM Patient was identified by name and Date of . documented in this encounter [facility] 12-16-2022 Note Addended by: GRETCHEN FLORES on: 12/18/2022 10:47 AM Modules accepted: Level of Service [facility] 11-28-2022 Evaluation + Plan note Associated Problem(s): Acute deep vein thrombosis (DVT) of popliteal vein of left lower extremity (HCC) Resolving. Continue Xarelto 20 mg daily follow-up in 2 to 3 weeks [facility] 11-28-2022 Evaluation + Plan note Associated Problem(s): Essential hypertension, benign Controlled. Continue amlodipine 10 mg daily, valsartan 20 mg daily. Follow-up in a couple weeks for BP check and DVT recheck [facility] 11-28-2022 Miscellaneous Notes Associated Problem(s): Acute deep vein thrombosis (DVT) of popliteal vein of left lower extremity (HCC) Resolving. Continue Xarelto 20 mg daily follow-up in 2 to 3 weeks Associated Problem(s): Essential hypertension, benign Controlled. Continue amlodipine 10 mg daily, valsartan 20 mg daily. Follow-up in a couple weeks for BP check and DVT recheck documented in this encounter [facility] 11-28-2022 History of Present illness Narrative Images from the original note were not included. 11/28/2022 Ciro Sales (: 1935) is a 87 y.o. male , Established patient, here for evaluation of the following chief complaint(s): Blood Pressure Check and Discuss Medications ASSESSMENT/PLAN: 1. Essential hypertension, benign Assessment & Plan: Controlled. Continue amlodipine 10 mg daily, valsartan 20 mg daily. Follow-up in a couple weeks for BP check and DVT recheck 2. Acute deep vein thrombosis (DVT) of popliteal vein of left lower extremity (HCC) Assessment & Plan: Resolving. Continue Xarelto 20 mg daily follow-up in 2 to 3 weeks Follow up for Recheck. SUBJECTIVE/OBJECTIVE: HPI - Ciro Sales (: 1935) is a 87 y.o. male , Established patient, here for the evaluation of the following chief complaint(s): Blood Pressure Check and Discuss Medications Presents for blood pressure check. Patient currently on amlodipine 10 mg daily, was recently taken off of lisinopril for patient concerns causing his cough. Was placed on valsartan 20 mg daily. Patient reports that he thinks his cough is a little better. Denies any adverse effects of the valsartan. Blood pressure today 138/74. DVT-patient was recently diagnosed with DVT of the left lower extremity and was started on Xarelto. Just recently started the Xarelto 20 mg daily. He will be having a procedure done on December 02, 2022 in which he was instructed to stop taking Xarelto 3 days prior and resume the day after. Patient reports left lower extremity swelling is improving and denies any pain He is going camping in [facility] with his son for a couple weeks and will be back on 12/12/2022. Prior to Admission medications Medication Sig Start Date End Date Taking? Authorizing Provider amLODIPine (Norvasc) 10 MG tablet Take 1 tablet (10 mg) by mouth daily. 10/18/22 Hermann Damian MD Lhfkkhe-Axdzltkyh-Rnzr [id number] MG tablet Take by mouth. Historical Provider, Carboxymethylcell-Hypromellose 0.25-0.3 % gel Apply to affected eye(s). Historical Provider, Robert Irwin oxycoccus, (Cranberry Extract) 200 MG capsule Take by mouth. Historical Provider, fluticasone (Flonase) 50 MCG/ACT nasal spray Administer 2 sprays into each nostril Nightly. Shake gently. Before first use, prime pump. After use, clean tip and replace cap. 11/04/22 11/04/23 Gretchen Bridenthal, [employer] gabapentin (Neurontin) 100 MG capsule Take 300 mg by mouth in the morning and 300 mg in the evening. 09/12/22 Historical Provider, omega-3 (Fish Oil) 1000 MG capsule Take 1,000 mg by mouth. Historical Provider, oxybutynin XL (Ditropan-XL) 10 MG 24 hr tablet Take 10 mg by mouth daily. 02/11/22 Historical ProviderMD rivaroxaban (Xarelto) 15 MG tablet Take 1 tablet (15 mg) by mouth 2 times daily for 21 days. Take with food. 11/04/22 11/25/22 KALLIE Carter CNP rivaroxaban (Xarelto) 20 MG tablet Take 1 tablet (20 mg) by mouth daily. Take with food. Do not start before November 26, 2022. 11/26/22 02/24/23 KALLIE Carter CNP TURMERIC PO Take by mouth. Historical Provider, valsartan (Diovan) 40 MG tablet Take 0.5 tablets (20 mg) by mouth daily. 11/18/22 01/17/23 KALLIE Carter CNP Review of Systems Constitutional: Negative for activity change, appetite change, diaphoresis, fatigue and fever. Eyes: Negative for visual disturbance. Respiratory: Positive for cough (Reports improving). Negative for chest tightness and shortness of breath. Neurological: Positive for tremors. Negative for dizziness and headaches. Vitals: 11/28/22 0818 BP: 138/74 Pulse: 83 Resp: 20 Temp: 36.6 C (97.8 F) TempSrc: Oral SpO2: 92% Weight: 205 lb (93 kg) Physical Exam Constitutional: General: He is not in acute distress. Appearance: Normal appearance. He is not ill-appearing. HENT: Head: Normocephalic and atraumatic. Cardiovascular: Rate and Rhythm: Normal rate and regular rhythm. Pulses: Normal pulses. Heart sounds: Normal heart sounds. Pulmonary: Effort: Pulmonary effort is normal. Breath sounds: Normal breath sounds. Musculoskeletal: General: No tenderness. Right lower leg: No edema. Left lower leg: Edema (no redness- edema -slight- improving) present. Neurological: Mental Status: He is alert and oriented to person, place, and time. Motor: Tremor present. An electronic signature was used to authenticate this note. KALLIE Carter CNP 11/28/2022 9:39 AM documented in this encounter [facility] 11-28-2022 Instructions KALLIE Carter CNP - 11/28/2022 8:00 AM EDT Do not take xarelto 3 days prior to procedure scheduled on 12/02/2022. Resume day after on 12/03/2022. Ok to take the zinc supplement documented in this encounter [facility] 11-18-2022 Evaluation + Plan note Associated Problem(s): Acute deep vein thrombosis (DVT) of popliteal vein of left lower extremity (HCC) Edema improving. Continue xarelto. [facility] 11-18-2022 Miscellaneous Notes Associated Problem(s): Acute deep vein thrombosis (DVT) of popliteal vein of left lower extremity (HCC) Edema improving. Continue xarelto. Associated Problem(s): Essential hypertension, benign Controlled. Will continue amlodipine, stop lisinopril (patinet concern may be causing cough), start valsartan 40 mg daily (1/2 tab). Follow up in 2 weeks for bp check. Advised patient valsartan less likely to cause cough and still renal protective. documented in this encounter [facility] 11-18-2022 Evaluation + Plan note Associated Problem(s): Essential hypertension, benign Controlled. Will continue amlodipine, stop lisinopril (patinet concern may be causing cough), start valsartan 40 mg daily (1/2 tab). Follow up in 2 weeks for bp check. Advised patient valsartan less likely to cause cough and still renal protective. [facility] 11-18-2022 History of Present illness Narrative Images from the original note were not included. 11/18/2022 Ciro Sales (: 1935) is a 87 y.o. male , Established patient, here for evaluation of the following chief complaint(s): Follow-up and Leg Swelling (Left leg) ASSESSMENT/PLAN: 1. Acute deep vein thrombosis (DVT) of popliteal vein of left lower extremity (HCC) Assessment & Plan: Edema improving. Continue xarelto. Orders: - rivaroxaban (Xarelto) 20 MG tablet; Take 1 tablet (20 mg) by mouth daily. Take with food. Do not start before November 26, 2022., Starting Fri11/26/2022, Until Fri02/24/2023, Normal 2. Essential hypertension, benign Assessment & Plan: Controlled. Will continue amlodipine, stop lisinopril (patinet concern may be causing cough), start valsartan 40 mg daily (1/2 tab). Follow up in 2 weeks for bp check. Advised patient valsartan less likely to cause cough and still renal protective. Orders: - valsartan (Diovan) 40 MG tablet; Take 0.5 tablets (20 mg) by mouth daily., Starting Fri11/18/2022, Until Fri01/17/2023, Normal Follow up in about 2 weeks (around 12/02/2022). SUBJECTIVE/OBJECTIVE: HPI - Ciro Sales (: 1935) is a 87 y.o. male , Established patient, here for the evaluation of the following chief complaint(s): Follow-up and Leg Swelling (Left leg) Presents for follow up left lower leg DVT/swelling. US 11/04/2022 showed Deep venous thromboses in the left popliteal, posterior tibial and peroneal veins. Was started on xarelto 11/05/2022. Patient reports taking daily as directed. Reports that he is doing better. Swelling has decreased significantly. Denies chest pain, shortness of breath. He is hoping to get scheduled for back injection through [facility] on 12/02/2022, it was delayed d/t recent DVTs. Cough- ongoing intermittent dry cough, thinks it is from the lisinopril and would like to try a different medication. Has tried treatments for postnasal drainage but no improvement. No fever or chills. Does not feel sick. No shortness of breath Prior to Admission medications Medication Sig Start Date End Date Taking? Authorizing Provider amLODIPine (Norvasc) 10 MG tablet Take 1 tablet (10 mg) by mouth daily. 10/18/22 Yes Hermann Damian MD fluticasone (Flonase) 50 MCG/ACT nasal spray Administer 2 sprays into each nostril Nightly. Shake gently. Before first use, prime pump. After use, clean tip and replace cap. 11/04/22 11/04/23 Yes Gretchenjasmin Cabrera [employer] lisinopril 20 MG tablet Take 1 tablet (20 mg) by mouth daily. 10/18/22 Yes Hermann Damian MD oxybutynin XL (Ditropan-XL) 10 MG 24 hr tablet Take 10 mg by mouth daily. 02/11/22 Yes Historical Provider, rivaroxaban (Xarelto) 15 MG tablet Take 1 tablet (15 mg) by mouth 2 times daily for 21 days. Take with food. 11/04/22 11/25/22 Yes Gretchen Justiceenthal, [employer] MANAGER Whbkxvv-Bzolunuca-Hnxm [id number] MG tablet Take by mouth. Historical Provider, Carboxymethylcell-Hypromellose 0.25-0.3 % gel Apply to affected eye(s). Historical Provider, MD Carey Vacc oxycoccus, (Cranberry Extract) 200 MG capsule Take by mouth. Historical Provider, gabapentin (Neurontin) 100 MG capsule Take 300 mg by mouth in the morning and 300 mg in the evening. 09/12/22 Historical Provider, omega-3 (Fish Oil) 1000 MG capsule Take 1,000 mg by mouth. Historical Provider, TURMERIC PO Take by mouth. Historical Provider, Review of Systems Constitutional: Negative for activity change, appetite change, chills, diaphoresis, fatigue and fever. HENT: Negative. Respiratory: Positive for cough (dry). Negative for chest tightness, shortness of breath and wheezing. Cardiovascular: Positive for leg swelling (left lower leg). Negative for chest pain and palpitations. Gastrointestinal: Negative. Genitourinary: Negative for difficulty urinating. Vitals: 07/31/23 1140 BP: 129/67 Pulse: 87 Resp: 20 Temp: 36.8 C (98.2 F) TempSrc: Infrared SpO2: 96% Weight: 209 lb 14.4 oz (95.2 kg) Physical Exam Constitutional: General: He is not in acute distress. Appearance: Normal appearance. He is not ill-appearing. HENT: Head: Normocephalic and atraumatic. Cardiovascular: Rate and Rhythm: Normal rate and regular rhythm. Pulses: Normal pulses. Heart sounds: Normal heart sounds. Musculoskeletal: General: No tenderness. Right lower leg: No edema. Left lower leg: Edema (no redness- edema much improved) present. Neurological: Mental Status: He is alert and oriented to person, place, and time. An electronic signature was used to authenticate this note. KALLIE Carter CNP 11/18/2022 11:47 AM documented in this encounter [facility] 11-18-2022 Instructions KALLIE Carter CNP - 11/18/2022 11:20 AM EDT STOP lisinopril and start valsartan 1/2 tab daily documented in this encounter [facility] 11-07-2022 Telephone encounter Note Noted. We can further discuss concerns when he comes into his appt on 11/18/2022. If he would like to discuss sooner, please offer an appt. [facility] 11-07-2022 Miscellaneous Notes Noted. We can further discuss concerns when he comes into his appt on 11/18/2022. If he would like to discuss sooner, please offer an appt. S: Patient spoke with [facility] nurse regarding medication questions B: Onset of symptoms/concern today A: Patient has medication questions regarding Xarelto 15 mg tablets (has an acute DVT of popliteal vein of left lower extremity). Patient requests to know if he can be in the sun, or in a hot tub while on the medication. Patient takes (1 tablet 15 mg) by mouth 2 times daily for 21 days, starting on 11/04/2022. Patient's other question is about gabapentin. Is it okay to take gabapentin (Neurontin) 100 mg capsules with the Xarelto. Nurse instructed the patient a pharmacist would be a good resource, nurse offered to warm transfer call to [facility], patient was on a brief hold. Nurse spoke with drew Carballo, explained patient's questions, patient had disconnected. Nurse called patient back reviewed Kait-pharmacist's answers:1) Patient can go into the sun while on Xarelto, should use sunscreen and drink plenty of fluids. 2) Patient should avoid hot tubs due to medications, and patient's age. 3) Yes, patient can take Xarelto and gabapentin together. Pharmacist states patient can call back anytime he has med questions. R: Patient requests to know the followin) Can he go swimming if the water isn't hot? 2) Patient is requesting another BP pill as he feels Lisinopril 20 mg tablets are making him cough, has been on it for 5 years. Message to be sent to provider. Reason for Disposition Caller has medication question about med NOT prescribed by PCP and triager unable to answer question (e.g., compatibility with other med, storage) Protocols used: Medication Question [id number] documented in this encounter [facility] 11-07-2022 Telephone encounter Note S: Patient spoke with [facility] nurse regarding medication questions B: Onset of symptoms/concern today A: Patient has medication questions regarding Xarelto 15 mg tablets (has an acute DVT of popliteal vein of left lower extremity). Patient requests to know if he can be in the sun, or in a hot tub while on the medication. Patient takes (1 tablet 15 mg) by mouth 2 times daily for 21 days, starting on 11/04/2022. Patient's other question is about gabapentin. Is it okay to take gabapentin (Neurontin) 100 mg capsules with the Xarelto. Nurse instructed the patient a pharmacist would be a good resource, nurse offered to warm transfer call to Madalyn pharmacist, patient was on a brief hold. Nurse spoke with Kait pharmacist, explained patient's questions, patient had disconnected. Nurse called patient back reviewed Kait-pharmacist's answers:1) Patient can go into the sun while on Xarelto, should use sunscreen and drink plenty of fluids. 2) Patient should avoid hot tubs due to medications, and patient's age. 3) Yes, patient can take Xarelto and gabapentin together. Pharmacist states patient can call back anytime he has med questions. R: Patient requests to know the followin) Can he go swimming if the water isn't hot? 2) Patient is requesting another BP pill as he feels Lisinopril 20 mg tablets are making him cough, has been on it for 5 years. Message to be sent to provider. Reason for Disposition Caller has medication question about med NOT prescribed by PCP and triager unable to answer question (e.g., compatibility with other med, storage) Protocols used: Medication Question [id number] [facility] 11-04-2022 Evaluation + Plan note Associated Problem(s): Cellulitis of left lower extremity We will treat for suspected cellulitis. Also obtain ultrasound left lower extremity to rule out DVT [facility] 11-04-2022 Miscellaneous Notes Associated Problem(s): Cellulitis of left lower extremity We will treat for suspected cellulitis. Also obtain ultrasound left lower extremity to rule out DVT Associated Problem(s): Pain and swelling of left lower leg Concern for DVT. Will obtain ultrasound. Vital signs are stable. Possible cellulitis due to increased warmth and redness and patient has a wound on the posterior of the calf. We will start antibiotic therapy at this time. Associated Problem(s): Allergic rhinitis Uncontrolled. Continue Flonase refill sent documented in this encounter [facility] 11-04-2022 Evaluation + Plan note Associated Problem(s): Pain and swelling of left lower leg Concern for DVT. Will obtain ultrasound. Vital signs are stable. Possible cellulitis due to increased warmth and redness and patient has a wound on the posterior of the calf. We will start antibiotic therapy at this time. [facility] 11-04-2022 Evaluation + Plan note Associated Problem(s): Allergic rhinitis Uncontrolled. Continue Flonase refill sent [facility] 11-04-2022 History of Present illness Narrative Insurance Claims Adjuster for Intimate and Non Intimate Exam Insurance Claims Adjuster was declined Insurance Claims Adjuster: linda Called and scheduled patient for STAT Ultrasound and scheduled for 1 week follow up. Images from the original note were not included. 11/04/2022 Ciro Sales (: 1935) is a 87 y.o. male , Established patient, here for evaluation of the following chief complaint(s): Leg Swelling (Left leg worse) ASSESSMENT/PLAN: 1. Pain and swelling of left lower leg Assessment & Plan: Concern for DVT. Will obtain ultrasound. Vital signs are stable. Possible cellulitis due to increased warmth and redness and patient has a wound on the posterior of the calf. We will start antibiotic therapy at this time. Orders: - Vascular US lower extremity venous duplex left - CBC auto differential 2. Cellulitis of left lower extremity Assessment & Plan: We will treat for suspected cellulitis. Also obtain ultrasound left lower extremity to rule out DVT 3. Allergic rhinitis, unspecified seasonality, unspecified trigger Assessment & Plan: Uncontrolled. Continue Flonase refill sent Orders: - fluticasone (Flonase) 50 MCG/ACT nasal spray; Administer 2 sprays into each nostril Nightly. Shake gently. Before first use, prime pump. After use, clean tip and replace cap., Starting Fri11/04/2022, Until Fri11/04/2023, Normal Follow up in about 1 week (around 11/11/2022). SUBJECTIVE/OBJECTIVE: HPI - Ciro Sales (: 1935) is a 87 y.o. male , Established patient, here for the evaluation of the following chief complaint(s): Leg Swelling (Left leg worse) Reports left leg swelling over the past week with pain. Has been elevating without much improvement. Reports wound on the back of the left leg after getting scratched by [place]. Denies any fever or chills. Has not taken anything for the swelling. Right leg without symptoms. Denies any shortness of breath or chest pain. Patient reports he is scheduled for a steroid injection in his back on Friday. And has been less mobile than previously due to his back pain. -Ongoing issues with nasal drainage is currently using Flonase nasal spray and ipratropium as needed for rhinorrhea. Also on antihistamine daily, would like refill of fluticasone nasal spray Prior to Admission medications Medication Sig Start Date End Date Taking? Authorizing Provider amLODIPine (Norvasc) 10 MG tablet Take 1 tablet (10 mg) by mouth daily. 10/18/22 Yes Hermann Damian MD Carboxymethylcell-Hypromellose 0.25-0.3 % gel Apply to affected eye(s). Yes Historical Provider, lisinopril 20 MG tablet Take 1 tablet (20 mg) by mouth daily. 10/18/22 Yes Hermann Damian MD omega-3 (Fish Oil) 1000 MG capsule Take 1,000 mg by mouth. Yes Historical Provider, oxybutynin XL (Ditropan-XL) 10 MG 24 hr tablet Take 10 mg by mouth daily. 02/11/22 Yes Historical Provider, Ztvezzh-Bbmsrknek-Qzns [id number] MG tablet Take by mouth. Historical Provider, Robert Irwin oxycoccus, (Cranberry Extract) 200 MG capsule Take by mouth. Historical Provider, fluticasone (Flonase) 50 MCG/ACT nasal spray Administer 2 sprays into each nostril Nightly. Shake gently. Before first use, prime pump. After use, clean tip and replace cap. Patient not taking: Reported on 11/04/2022 09/09/22 09/09/23 Yashira Rodriguez APRN - AQUATICS MANAGER gabapentin (Neurontin) 100 MG capsule Take 300 mg by mouth in the morning and 300 mg in the evening. 09/12/22 Historical Provider, TURMERIC PO Take by mouth. Historical Provider, ipratropium (Atrovent) 0.06 % nasal spray Administer 2 sprays into each nostril 3 times daily for 7 days. 10/21/22 10/29/22 Hermann Damian MD Review of Systems Constitutional: Negative for activity change, appetite change, diaphoresis, fatigue and fever. HENT: Positive for postnasal drip and rhinorrhea. Respiratory: Positive for cough (Throat clearing). Negative for chest tightness, shortness of breath and wheezing. Cardiovascular: Positive for leg swelling. Negative for chest pain and palpitations. Genitourinary: Negative for difficulty urinating. Vitals: 11/04/22 1117 BP: 130/67 Pulse: 88 Resp: 20 Temp: 37.2 C (98.9 F) TempSrc: Infrared SpO2: 99% Weight: 206 lb 6.4 oz (93.6 kg) Physical Exam Constitutional: General: He is not in acute distress. Appearance: Normal appearance. He is not ill-appearing. HENT: Head: Normocephalic and atraumatic. Nose: Congestion and rhinorrhea present. Mouth/Throat: Mouth: Mucous membranes are moist. Pharynx: Oropharynx is clear. Eyes: Conjunctiva/sclera: Conjunctivae normal. Cardiovascular: Rate and Rhythm: Normal rate and regular rhythm. Pulses: Normal pulses. Heart sounds: Normal heart sounds. Pulmonary: Effort: Pulmonary effort is normal. Breath sounds: Normal breath sounds. Musculoskeletal: General: Tenderness present. Right lower leg: No edema. Left lower leg: Edema (Excoriations noted posterior lower leg, erythema increased warmth) present. Legs: Lymphadenopathy: Cervical: No cervical adenopathy. Skin: General: Skin is warm and dry. Findings: Erythema and lesion present. Neurological: Mental Status: He is alert and oriented to person, place, and time. An electronic signature was used to authenticate this note. KALLIE Carter CNP 11/04/2022 11:32 AM documented in this encounter [facility] 11-04-2022 Telephone encounter Note Noted. Agree with disposition. [facility] 11-04-2022 Miscellaneous Notes Noted. Agree with disposition. S: Patient spoke with [facility] nurse regarding lower extremity edema B: Onset of symptoms/concern several days A: Patient states they have bilateral lower extremity swelling. States L > R and Swelling goes to knee on L. States L leg is sore if rubbed. Denies redness or warmth of skin of L lower extremity, denies coolness or bluish color of L foot. Denies chest pain, denies shortness of breath. R: Second level triage with Janell Cabrera. Ok. To come to office since patient denies chest pain or shortness of breath. Appt 11/04/22 @ 1120 with Janell Cabrera. Negative responses to COVID screening. Advised patient should arrive 10-15 minutes early, bring photo ID, ins cards, and medications. No further needs at this time. Patient instructed to call back with new or worsening symptoms. Reason for Disposition Thigh, calf, or ankle swelling in both legs, but one side is definitely more swollen (Exception: longstanding difference between legs) Protocols used: Leg Swelling and [id number] documented in this encounter [facility] 11-04-2022 Telephone encounter Note S: Patient spoke with [facility] nurse regarding lower extremity edema B: Onset of symptoms/concern several days A: Patient states they have bilateral lower extremity swelling. States L > R and Swelling goes to knee on L. States L leg is sore if rubbed. Denies redness or warmth of skin of L lower extremity, denies coolness or bluish color of L foot. Denies chest pain, denies shortness of breath. R: Second level triage with Janell Cabrera. Ok. To come to office since patient denies chest pain or shortness of breath. Appt 11/04/22 @ 1120 with Janell Cabrera. Negative responses to COVID screening. Advised patient should arrive 10-15 minutes early, bring photo ID, ins cards, and medications. No further needs at this time. Patient instructed to call back with new or worsening symptoms. Reason for Disposition Thigh, calf, or ankle swelling in both legs, but one side is definitely more swollen (Exception: longstanding difference between legs) Protocols used: Leg Swelling and [id number] [facility] 10-18-2022 Evaluation + Plan note Associated Problem(s): Chronic rhinitis He is to get some Claritin 10 mg and start that along with his Flonase nasal spray and I instructed him on how to use the Flonase, he also has some ipratropium nasal spray which she can use. I recommended that he stop all his other antihistamines and definitely not take any decongestants because of his blood pressure and his prostate. [facility] 10-18-2022 Miscellaneous Notes Associated Problem(s): Chronic rhinitis He is to get some Claritin 10 mg and start that along with his Flonase nasal spray and I instructed him on how to use the Flonase, he also has some ipratropium nasal spray which she can use. I recommended that he stop all his other antihistamines and definitely not take any decongestants because of his blood pressure and his prostate. Associated Problem(s): OAB (overactive bladder) Uncontrolled, continue oxybutynin and follow-up with the urologist. Associated Problem(s): Hyperlipidemia Stable, continue low-fat low-cholesterol diet. Associated Problem(s): Prediabetes Stable, repeat A1c today Associated Problem(s): Elevated PSA, between 10 and less than 20 ng/ml Stable, will get repeat PSA and he is to follow-up with his urologist. Associated Problem(s): Chronic renal disease, stage III (HCC) Stable, will get repeat lab work today Associated Problem(s): Essential hypertension, benign Blood pressure was initially elevated, recheck was normal, continue amlodipine 10 mg and lisinopril 20 mg. documented in this encounter [facility] 10-18-2022 Evaluation + Plan note Associated Problem(s): OAB (overactive bladder) Uncontrolled, continue oxybutynin and follow-up with the urologist. [facility] 10-18-2022 Evaluation + Plan note Associated Problem(s): Hyperlipidemia Stable, continue low-fat low-cholesterol diet. [facility] 10-18-2022 Evaluation + Plan note Associated Problem(s): Prediabetes Stable, repeat A1c today T [facility] 10-18-2022 Evaluation + Plan note Associated Problem(s): Elevated PSA, between 10 and less than 20 ng/ml Stable, will get repeat PSA and he is to follow-up with his urologist. T [facility] 10-18-2022 Evaluation + Plan note Associated Problem(s): Chronic renal disease, stage III (HCC) Stable, will get repeat lab work today T [facility] 10-18-2022 Evaluation + Plan note Associated Problem(s): Essential hypertension, benign Blood pressure was initially elevated, recheck was normal, continue amlodipine 10 mg and lisinopril 20 mg. T [facility] 10-18-2022 History of Present illness Narrative Patient verified by last name and date of . Patient wants a harbor boat pilot in the room during during the visit. no Insurance Claims Adjuster na Images from the original note were not included. 10/18/2022 Ciro Sales (: 1935) is a 87 y.o. male , Established patient, here for evaluation of the following chief complaint(s): Hyperlipidemia, prediabetes, Hypertension, Medication Check (6 month), Cough (Chronic - wonders if from lisinopril), and Allergies (Seasonal- wants a plan on what he should take for this ) ASSESSMENT/PLAN: 1. Essential hypertension, benign Assessment & Plan: Blood pressure was initially elevated, recheck was normal, continue amlodipine 10 mg and lisinopril 20 mg. Orders: - amLODIPine (Norvasc) 10 MG tablet; Take 1 tablet (10 mg) by mouth daily., Starting Fri10/18/2022, Normal - lisinopril 20 MG tablet; Take 1 tablet (20 mg) by mouth daily., Starting Fri10/18/2022, Normal 2. Mixed hyperlipidemia Assessment & Plan: Stable, continue low-fat low-cholesterol diet. Orders: - Lipid panel 3. Stage 3a chronic kidney disease (HCC) Assessment & Plan: Stable, will get repeat lab work today 4. Prediabetes Assessment & Plan: Stable, repeat A1c today Orders: - Comprehensive metabolic panel - Hemoglobin A1c 5. Elevated PSA, between 10 and less than 20 ng/ml Assessment & Plan: Stable, will get repeat PSA and he is to follow-up with his urologist. Orders: - PSA Total 6. OAB (overactive bladder) Assessment & Plan: Uncontrolled, continue oxybutynin and follow-up with the urologist. 7. Chronic rhinitis Assessment & Plan: He is to get some Claritin 10 mg and start that along with his Flonase nasal spray and I instructed him on how to use the Flonase, he also has some ipratropium nasal spray which she can use. I recommended that he stop all his other antihistamines and definitely not take any decongestants because of his blood pressure and his prostate. Follow up in about 6 months (around 04/19/2023) for AWV. SUBJECTIVE/OBJECTIVE: ALFREDA Luther comes in today for 6-month follow-up, blood pressure was initially elevated we will recheck that prior to discharge, he is complaining of a lot of postnasal drainage and he brings in a lot of different allergy medications that he has been trying and some are decongestants so recommended that he not take those and the others are a lot of the same type of medication antihistamines so I told him he should be limited to 1 antihistamine and his nasal spray. He needs some fasting lab work for his prediabetes his kidney disease and he would like to have his PSA rechecked because he has to have that done before he goes to see his urologist. His urologist is working on him for an elevated PSA and an overactive bladder and he is wondering about taking some vitamin B1 for his overactive bladder and I explained to him that that would be okay to take. Review of Systems Constitutional: Negative for chills and fever. Respiratory: Negative for shortness of breath. Cardiovascular: Negative for chest pain and palpitations. Gastrointestinal: Negative for abdominal pain, blood in stool, constipation and diarrhea. Genitourinary: Negative for dysuria, frequency, hematuria and urgency. Vitals: 10/18/22 0924 10/18/22 1006 BP: (!) 155/84 137/84 Pulse: 76 73 SpO2: 92% Weight: 205 lb 3.2 oz (93.1 kg) Height: 5' 10.5 (1.791 m) Physical Exam Vitals and nursing note reviewed. Constitutional: General: He is not in acute distress. Appearance: Normal appearance. HENT: Head: Normocephalic. Right Ear: Tympanic membrane, ear canal and external ear normal. Left Ear: Tympanic membrane, ear canal and external ear normal. Mouth/Throat: Mouth: Mucous membranes are moist. Pharynx: Oropharynx is clear. Eyes: Extraocular Movements: Extraocular movements intact. Pupils: Pupils are equal, round, and reactive to light. Neck: Vascular: No carotid bruit. Cardiovascular: Rate and Rhythm: Normal rate and regular rhythm. Heart sounds: Normal heart sounds. Pulmonary: Effort: Pulmonary effort is normal. Breath sounds: Normal breath sounds. Musculoskeletal: Cervical back: Neck supple. Lymphadenopathy: Cervical: No cervical adenopathy. Neurological: Mental Status: He is alert. An electronic signature was used to authenticate this note. Hermann Damian MD 10/18/2022 10:15 AM documented in this encounter [facility] 10-18-2022 Evaluation note Diagnosis Essential hypertension, benign- Primary Mixed hyperlipidemia Stage 3a chronic kidney disease (HCC) Prediabetes Other abnormal glucose Elevated PSA, between 10 and less than 20 ng/ml OAB (overactive bladder) Chronic rhinitis documented in this encounter [id number] Telephone encounter Note* Telephone Encounter - KALLIE Carter CNP - 10/02/2022 6:28 AM EDT Noted. Agree with disposition. [facility] [id number] Miscellaneous Notes* Telephone Encounter - KALLIE Carter CNP - 10/02/2022 6:28 AM EDT Noted. Agree with disposition. * Telephone Encounter - Maribel Cha RN - 09/30/2022 4:25 PM EDT S: Patient spoke with [facility] nurse regarding cough B: Onset of symptoms/concern worsening over last 3-4 weeks, last office visit 09/09/22 A: Pt c/o dry cough, pt says it is worse than the last time he was seen. He said he completed the regimen of tessalon perls RX and he is still using the flonase nasal spray nightly. Pt wants to be seen as soon as possible. R: Scheduled appt 10/04/22 at 10:40am with KALLIE Carter CNP. Insurance verified. Instructed pt to bring photo ID, insurance card, and arrive 15 minutes prior to appt. Home care advice given per protocol. Patient understands care advice. No further needs at this time. Patient instructedto call back with new or worsening symptoms. Reason for Disposition Cough has been present for > 3 weeks Protocols used: [id number] documented in this [facility]06-12-2023 Telephone encounter Note* Telephone Encounter - Maribel Cha RN - 09/30/2022 4:25 PM EDT S: Patient spoke with [facility] nurse regarding cough B: Onset of symptoms/concern worsening over last 3-4 weeks, last office visit 09/09/22 A: Pt c/o dry cough, pt says it is worse than the last time he was seen. He said he completed the regimen of tessalon perls RX and he is still using the flonase nasal spray nightly. Pt wants to be seen as soon as possible. R: Scheduled appt 10/04/22 at 10:40am with KALLIE Carter CNP. Insurance verified. Instructed pt to bring photo ID, insurance card, and arrive 15 minutes prior to appt. Home care advice given per protocol. Patient understands care advice. No further needs at this time. Patient instructedto call back with new or worsening symptoms. Reason for Disposition Cough has been present for > 3 weeks Protocols used: [id number] [facility] [id number] Hospital Discharge instructions* Instructions* Christina Hill RN - 05/20/2019 PLEASE BE AWARE THAT VISITORS UNDER THE AGE OF 12 AND FOOD/DRINKS ARE NO LONGER PERMITTED IN THE SAME DAY SURGERY DEPARTMENT. IF YOU USE A CPAP MACHINE OR RESCUE INHALER AT HOME PLEASE BRING THESE ITEMS WITH YOU THE DAY OF SURGERY. MEDICATION INSTRUCTIONS PRIOR TO SURGERY PLEASE BRING PROVIDED LIST BACK WITH YOU THE DAY OF SURGERY WITH DATE/TIME LAST DOSE OF MEDICATIONSTAKEN. HOLD FISH OIL FOR 5 DAYS PRIOR TO SURGERY. LAST DOSE 2/2 DO NOT TAKE LISINOPRIL THE MORNING OF SURGERY, BUT TAKE AMLODIPINE THE MORNING OF SURGERY. During pre-admission testing appointment, patient instructed on the following To arrive 2 hours prior to scheduled surgery Upon arrival, stop in registration past the main entrance and provide them with a photo id and a medical card if they have one After registration, come to the same day surgery department, stopping at the main desk They need to have made arrangements for a ride home following surgery and a phone number will need to be provided before going back to the operating room. If public transportation is being used, pt made aware that they need to have a responsible adult accompany them. They need to make arrangements for someone to stay with them after they get home from surgery. Leave all jewelry, contacts and valuables at home Wear loose comfortable clothing to go home in Which medications need to be held and taken prior to surgery Bring in the medication list provided for them and write in the date/time last dose was taken No food (including candy, gum and mints) the day of surgery They may have clear liquids ( water, black coffee/no liquid or powder creamer, clear tea, clear fruit juices/no pulp and carbonated beverages) up until 2 hours prior to surgery Do not drink alcohol, use recreational drugs or smoke/use nicotine products 24 hours prior to surgery. Encouraged to write down any questions they may have for the surgeon, anesthesiologist or any member of the surgical team, and to bring list of questions in with them During the pre-admission testing appointment, this nurse reviewed and provided patient with The taking care of yourself after surgery paper Billing information for anesthesia patients Preparing for your surgical procedure pamphlet After visit Summary with medication list and medication instructions Prior to end of PAT appointment, pt acknowledged understanding of information and instructions provided in preparation of upcoming surgery. * Attachments The following attachments cannot be sent through Care Everywhere. * Abdominal Hernia Repair: Post-op (Nauruan) * Abdominal Hernia Repair: Pre-op (Nauruan) documented in this [facility] Work Phone: Evaluation note* Diagnosis Pain in right hip documented in this encounter [facility]* Diagnosis Chronic cough Cough documented in this encounter [facility] note* Diagnosis Pain and swelling of left lower leg- Primary Cellulitis of left lower extremity Allergic rhinitis, unspecified seasonality, unspecified trigger Pain and swelling of left lower leg documented in this encounter [facility]* Diagnosis Pain and swelling of left lower leg documented in this encounter [facility]* Diagnosis Acute deep vein thrombosis (DVT) of popliteal vein of left lower extremity (HCC)- Primary Essential hypertension, benign documented in this encounter [facility]* Diagnosis Essential hypertension, benign- Primary Acute deep vein thrombosis (DVT) of popliteal vein of left lower extremity (HCC) documented in this encounter [facility]* Diagnosis Essential hypertension, benign- Primary Acute deep vein thrombosis (DVT) of popliteal vein of left lower extremity (HCC) documented in this encounter [facility]* Diagnosis Swelling of left lower extremity- Primary Bilateral lower extremity edema Essential hypertension, benign Dermatitis Contact dermatitis and other eczema, due to unspecified cause Swelling of left lower extremity documented in this encounter [facility]* Diagnosis Swelling of left lower extremity [facility]* Diagnosis Bilateral lower extremity edema- Primary Dermatitis Contact dermatitis and other eczema, due to unspecified cause Essential hypertension, benign documented in this encounter [facility]* Diagnosis Medicare annual wellness visit, subsequent- Primary Essential hypertension, benign Benign head tremor Urge incontinence OAB (overactive bladder) Bilateral lower extremity edema Prediabetes Other abnormal glucose Mixed hyperlipidemia Screening for prostate cancer Special screening for malignant neoplasm of prostate documented in this encounter [facility]* Diagnosis Medicare annual wellness visit, subsequent- Primary Essential hypertension, benign Benign head tremor Urge incontinence OAB (overactive bladder) Bilateral lower extremity edema Prediabetes Other abnormal glucose Mixed hyperlipidemia Screening for prostate cancer Special screening for malignant neoplasm of prostate documented in this encounter [facility]* Diagnosis Bilateral lower extremity edema- Primary Essential hypertension, benign documented in this encounter [facility]* Diagnosis Greater trochanteric bursitis of right hip- Primary Essential hypertension, benign documented in this encounter [facility]* Diagnosis Primary osteoarthritis of right hip- Primary documented in this encounter [facility]* Diagnosis Primary osteoarthritis of right hip- Primary documented in this encounter [facility]* Diagnosis Lumbar stenosis with neurogenic claudication- Primary Spondylolisthesis of lumbar region documented in this encounter [facility]* Diagnosis Essential hypertension, benign Spinal stenosis, lumbar region with neurogenic claudication Spondylolisthesis, lumbar region documented in this encounter [facility]* Diagnosis Lumbar stenosis with neurogenic claudication- Primary Pre-op examination Lumbar stenosis with neurogenic claudication documented in this encounter [facility]* Diagnosis Encounter for Lopez catheter removal- Primary Urinary retention Unspecified retention of urine documented [facility]* Diagnosis Spinal stenosis of lumbosacral region- Primary Urinary retention Unspecified retention of urine Anemia, unspecified type Acute bacterial sinusitis Acute sinusitis, unspecified Post-nasal drainage Other diseases of nasal cavity and sinuses Bilateral lower extremity edema documented in this encounter [facility] note* Diagnosis Urinary retention- Primary Unspecified retention of urine Benign prostatic hyperplasia with urinary retention [facility] Diagnosis Essential hypertension, benign- Primary Drug-induced constipation Other constipation Toenail fungus Sinus congestion Other diseases of nasal cavity and sinuses Primary hypertension Unspecified essential hypertension Urinary retention Unspecified retention of urine Chronic rhinitis Subacute cough Anemia, unspecified type documented in this encounter [facility] note* Diagnosis Benign prostatic hyperplasia with urinary retention- Primary Constipation, unspecified constipation type Benign prostatic hyperplasia with lower urinary tract symptoms Retention of urine, unspecified documented in this encounter [facility] note* Diagnosis Hypoxia- Primary Hypoxemia Bilateral leg edema Edema Hypoxia Hypoxemia documented in this encounter [facility] note* Diagnosis Acute pulmonary embolism, unspecified pulmonary embolism type, unspecified whether acute cor pulmonale present (HCC)- Primary Essential hypertension, benign Anemia, unspecified type Subacute cough Sinus congestion Other diseases of nasal cavity and sinuses documented in this encounter [facility] note* Diagnosis Lumbar stenosis with neurogenic claudication documented in this encounter [facility] note* Diagnosis Anemia, unspecified type- Primary documented in this encounter [facility] note* Diagnosis Lumbar stenosis with neurogenic claudication- Primary [facility] Diagnosis Chronic cough- Primary Cough Anemia, unspecified type [facility] Diagnosis Urinary retention- Primary Unspecified retention of urine BPH with obstruction/lower urinary tract symptoms Constipation, unspecified constipation type Acute pulmonary embolism, unspecified pulmonary embolism type, unspecified whether acute cor pulmonale present (HCC) [facility] Diagnosis Pre-operative clearance- Primary Unspecified pre-operative examination Benign prostatic hyperplasia with lower urinary tract symptoms Retention of urine, unspecified documented in this encounter [facility] note* Diagnosis BPH with obstruction/lower urinary tract symptoms- Primary Benign prostatic hyperplasia with lower urinary tract symptoms Retention of urine, unspecified documented in this encounter [facility] note* Diagnosis Wheezing- Primary documented in this encounter [facility]* Diagnosis Acute cystitis without hematuria- Primary [facility] Diagnosis Obstruction of Lopez catheter, initial encounter (HCC)- Primary [facility]* Diagnosis Suprapubic catheter dysfunction, subsequent encounter- Primary [facility] Diagnosis Suprapubic catheter dysfunction, initial encounter (HCC)- Primary [facility] Diagnosis Viral URI with cough- Primary Essential hypertension, benign Chronic cough- Primary Cough Post-nasal drainage Other diseases of nasal cavity and sinuses Essential hypertension, benign- Primary Mixed hyperlipidemia Stage 3a chronic kidney disease (HCC) Prediabetes Other abnormal glucose Elevated PSA, between 10 and less than 20 ng/ml OAB (overactive bladder) Chronic rhinitis Pain and swelling of left lower leg- Primary Cellulitis of left lower extremity Allergic rhinitis, unspecified seasonality, unspecified trigger Acute deep vein thrombosis (DVT) of popliteal vein of left lower extremity (HCC)- Primary Essential hypertension, benign Essential hypertension, benign- Primary Acute deep vein thrombosis (DVT) of popliteal vein of left lower extremity (HCC) Essential hypertension, benign- Primary Acute deep vein thrombosis (DVT) of popliteal vein of left lower extremity (HCC) Essential hypertension, benign Swelling of left lower extremity- Primary Bilateral lower extremity edema Essential hypertension, benign Dermatitis Contact dermatitis and other eczema, due to unspecified cause Bilateral lower extremity edema- Primary Dermatitis Contact dermatitis and other eczema, due to unspecified cause Essential hypertension, benign Medicare annual wellness visit, subsequent- Primary Essential hypertension, benign Benign head tremor Urge incontinence OAB (overactive bladder) Bilateral lower extremity edema Prediabetes Other abnormal glucose Mixed hyperlipidemia Screening for prostate cancer Special screening for malignant neoplasm of prostate Bilateral lower extremity edema- Primary Essential hypertension, benign Greater trochanteric bursitis of right hip- Primary Essential hypertension, benign Spinal stenosis of lumbosacral region- Primary Urinary retention Unspecified retention of urine Anemia, unspecified type Acute bacterial sinusitis Acute sinusitis, unspecified Post-nasal drainage Other diseases of nasal cavity and sinuses Bilateral lower extremity edema Essential hypertension, benign- Primary Drug-induced constipation Other constipation Toenail fungus Sinus congestion Other diseases of nasal cavity and sinuses Primary hypertension Unspecified essential hypertension Urinary retention Unspecified retention of urine Chronic rhinitis Subacute cough Anemia, unspecified type Acute pulmonary embolism, unspecified pulmonary embolism type, unspecified whether acute cor pulmonale present (HCC)- Primary Essential hypertension, benign Anemia, unspecified type Subacute cough Sinus congestion Other diseases of nasal cavity and sinuses Chronic cough- Primary Cough Anemia, unspecified type Urinary retention- Primary Unspecified retention of urine documented in this encounter [facility]* Diagnosis Viral URI with cough- Primary Essential hypertension, benign Chronic cough- Primary Cough Post-nasal drainage Other diseases of nasal cavity and sinuses Essential hypertension, benign- Primary Mixed hyperlipidemia Stage 3a chronic kidney disease (HCC) Prediabetes Other abnormal glucose Elevated PSA, between 10 and less than 20 ng/ml OAB (overactive bladder) Chronic rhinitis Pain and swelling of left lower leg- Primary Cellulitis of left lower extremity Allergic rhinitis, unspecified seasonality, unspecified trigger Acute deep vein thrombosis (DVT) of popliteal vein of left lower extremity (HCC)- Primary Essential hypertension, benign Essential hypertension, benign- Primary Acute deep vein thrombosis (DVT) of popliteal vein of left lower extremity (HCC) Essential hypertension, benign- Primary Acute deep vein thrombosis (DVT) of popliteal vein of left lower extremity (HCC) Essential hypertension, benign Swelling of left lower extremity- Primary Bilateral lower extremity edema Essential hypertension, benign Dermatitis Contact dermatitis and other eczema, due to unspecified cause Bilateral lower extremity edema- Primary Dermatitis Contact dermatitis and other eczema, due to unspecified cause Essential hypertension, benign Medicare annual wellness visit, subsequent- Primary Essential hypertension, benign Benign head tremor Urge incontinence OAB (overactive bladder) Bilateral lower extremity edema Prediabetes Other abnormal glucose Mixed hyperlipidemia Screening for prostate cancer Special screening for malignant neoplasm of prostate Bilateral lower extremity edema- Primary Essential hypertension, benign Greater trochanteric bursitis of right hip- Primary Essential hypertension, benign Spinal stenosis of lumbosacral region- Primary Urinary retention Unspecified retention of urine Anemia, unspecified type Acute bacterial sinusitis Acute sinusitis, unspecified Post-nasal drainage Other diseases of nasal cavity and sinuses Bilateral lower extremity edema Essential hypertension, benign- Primary Drug-induced constipation Other constipation Toenail fungus Sinus congestion Other diseases of nasal cavity and sinuses Primary hypertension Unspecified essential hypertension Urinary retention Unspecified retention of urine Chronic rhinitis Subacute cough Anemia, unspecified type Acute pulmonary embolism, unspecified pulmonary embolism type, unspecified whether acute cor pulmonale present (HCC)- Primary Essential hypertension, benign Anemia, unspecified type Subacute cough Sinus congestion Other diseases of nasal cavity and sinuses Chronic cough- Primary Cough Anemia, unspecified type Acute maxillary sinusitis, recurrence not specified- Primary documented in this encounter [facility]* Diagnosis Wheezing- Primary documented in this encounter [facility]* Diagnosis Viral URI with cough- Primary Essential hypertension, benign Chronic cough- Primary Cough Post-nasal drainage Other diseases of nasal cavity and sinuses Essential hypertension, benign- Primary Mixed hyperlipidemia Stage 3a chronic kidney disease (HCC) Prediabetes Other abnormal glucose Elevated PSA, between 10 and less than 20 ng/ml OAB (overactive bladder) Chronic rhinitis Pain and swelling of left lower leg- Primary Cellulitis of left lower extremity Allergic rhinitis, unspecified seasonality, unspecified trigger Acute deep vein thrombosis (DVT) of popliteal vein of left lower extremity (HCC)- Primary Essential hypertension, benign Essential hypertension, benign- Primary Acute deep vein thrombosis (DVT) of popliteal vein of left lower extremity (HCC) Essential hypertension, benign- Primary Acute deep vein thrombosis (DVT) of popliteal vein of left lower extremity ([facility] Essential hypertension, benign Swelling of left lower extremity- Primary Bilateral lower extremity edema Essential hypertension, benign Dermatitis Contact dermatitis and other eczema, due to unspecified cause Bilateral lower extremity edema- Primary Dermatitis Contact dermatitis and other eczema, due to unspecified cause Essential hypertension, benign Medicare annual wellness visit, subsequent- Primary Essential hypertension, benign Benign head tremor Urge incontinence OAB (overactive bladder) Bilateral lower extremity edema Prediabetes Other abnormal glucose Mixed hyperlipidemia Screening for prostate cancer Special screening for malignant neoplasm of prostate Bilateral lower extremity edema- Primary Essential hypertension, benign Greater trochanteric bursitis of right hip- Primary Essential hypertension, benign Spinal stenosis of lumbosacral region- Primary Urinary retention Unspecified retention of urine Anemia, unspecified type Acute bacterial sinusitis Acute sinusitis, unspecified Post-nasal drainage Other diseases of nasal cavity and sinuses Bilateral lower extremity edema Essential hypertension, benign- Primary Drug-induced constipation Other constipation Toenail fungus Sinus congestion Other diseases of nasal cavity and sinuses Primary hypertension Unspecified essential hypertension Urinary retention Unspecified retention of urine Chronic rhinitis Subacute cough Anemia, unspecified type Acute pulmonary embolism, unspecified pulmonary embolism type, unspecified whether acute cor pulmonale present (HCC)- Primary Essential hypertension, benign Anemia, unspecified type Subacute cough Sinus congestion Other diseases of nasal cavity and sinuses Chronic cough- Primary Cough Anemia, unspecified type Routine general medical examination at health care facility- Primary Routine general medical examination at a health care facility Benign head tremor Stage 3a chronic kidney disease (HCC) Essential hypertension, benign BPH with obstruction/lower urinary tract symptoms Prediabetes Other abnormal glucose Mixed hyperlipidemia Influenza vaccine refused [facility]* Diagnosis Viral URI with cough- Primary Essential hypertension, benign Chronic cough- Primary Cough Post-nasal drainage Other diseases of nasal cavity and sinuses Essential hypertension, benign- Primary Mixed hyperlipidemia Stage 3a chronic kidney disease (HCC) Prediabetes Other abnormal glucose Elevated PSA, between 10 and less than 20 ng/ml OAB (overactive bladder) Chronic rhinitis Pain and swelling of left lower leg- Primary Cellulitis of left lower extremity Allergic rhinitis, unspecified seasonality, unspecified trigger Acute deep vein thrombosis (DVT) of popliteal vein of left lower extremity (HCC)- Primary Essential hypertension, benign Essential hypertension, benign- Primary Acute deep vein thrombosis (DVT) of popliteal vein of left lower extremity (HCC) Essential hypertension, benign- Primary Acute deep vein thrombosis (DVT) of popliteal vein of left lower extremity (HCC) Essential hypertension, benign Swelling of left lower extremity- Primary Bilateral lower extremity edema Essential hypertension, benign Dermatitis Contact dermatitis and other eczema, due to unspecified cause Bilateral lower extremity edema- Primary Dermatitis Contact dermatitis and other eczema, due to unspecified cause Essential hypertension, benign Medicare annual wellness visit, subsequent- Primary Essential hypertension, benign Benign head tremor Urge incontinence OAB (overactive bladder) Bilateral lower extremity edema Prediabetes Other abnormal glucose Mixed hyperlipidemia Screening for prostate cancer Special screening for malignant neoplasm of prostate Bilateral lower extremity edema- Primary Essential hypertension, benign Greater trochanteric bursitis of right hip- Primary Essential hypertension, benign Spinal stenosis of lumbosacral region- Primary Urinary retention Unspecified retention of urine Anemia, unspecified type Acute bacterial sinusitis Acute sinusitis, unspecified Post-nasal drainage Other diseases of nasal cavity and sinuses Bilateral lower extremity edema Essential hypertension, benign- Primary Drug-induced constipation Other constipation Toenail fungus Sinus congestion Other diseases of nasal cavity and sinuses Primary hypertension Unspecified essential hypertension Urinary retention Unspecified retention of urine Chronic rhinitis Subacute cough Anemia, unspecified type Acute pulmonary embolism, unspecified pulmonary embolism type, unspecified whether acute cor pulmonale present (HCC)- Primary Essential hypertension, benign Anemia, unspecified type Subacute cough Sinus congestion Other diseases of nasal cavity and sinuses Chronic cough- Primary Cough Anemia, unspecified type Routine general medical examination at health care facility- Primary Routine general medical examination at a health care facility Benign head tremor Stage 3a chronic kidney disease (HCC) Essential hypertension, benign BPH with obstruction/lower urinary tract symptoms Prediabetes Other abnormal glucose Mixed hyperlipidemia Influenza vaccine refused Essential hypertension, benign documented in this encounter [facility]* Diagnosis Viral URI with cough- Primary Essential hypertension, benign Chronic cough- Primary Cough Post-nasal drainage Other diseases of nasal cavity and sinuses Essential hypertension, benign- Primary Mixed hyperlipidemia Stage 3a chronic kidney disease (HCC) Prediabetes Other abnormal glucose Elevated PSA, between 10 and less than 20 ng/ml OAB (overactive bladder) Chronic rhinitis Pain and swelling of left lower leg- Primary Cellulitis of left lower extremity Allergic rhinitis, unspecified seasonality, unspecified trigger Acute deep vein thrombosis (DVT) of popliteal vein of left lower extremity (HCC)- Primary Essential hypertension, benign Essential hypertension, benign- Primary Acute deep vein thrombosis (DVT) of popliteal vein of left lower extremity (HCC) Essential hypertension, benign- Primary Acute deep vein thrombosis (DVT) of popliteal vein of left lower extremity (HCC) Essential hypertension, benign Swelling of left lower extremity- Primary Bilateral lower extremity edema Essential hypertension, benign Dermatitis Contact dermatitis and other eczema, due to unspecified cause Bilateral lower extremity edema- Primary Dermatitis Contact dermatitis and other eczema, due to unspecified cause Essential hypertension, benign Medicare annual wellness visit, subsequent- Primary Essential hypertension, benign Benign head tremor Urge incontinence OAB (overactive bladder) Bilateral lower extremity edema Prediabetes Other abnormal glucose Mixed hyperlipidemia Screening for prostate cancer Special screening for malignant neoplasm of prostate Bilateral lower extremity edema- Primary Essential hypertension, benign Greater trochanteric bursitis of right hip- Primary Essential hypertension, benign Spinal stenosis of lumbosacral region- Primary Urinary retention Unspecified retention of urine Anemia, unspecified type Acute bacterial sinusitis Acute sinusitis, unspecified Post-nasal drainage Other diseases of nasal cavity and sinuses Bilateral lower extremity edema Essential hypertension, benign- Primary Drug-induced constipation Other constipation Toenail fungus Sinus congestion Other diseases of nasal cavity and sinuses Primary hypertension Unspecified essential hypertension Urinary retention Unspecified retention of urine Chronic rhinitis Subacute cough Anemia, unspecified type Acute pulmonary embolism, unspecified pulmonary embolism type, unspecified whether acute cor pulmonale present (HCC)- Primary Essential hypertension, benign Anemia, unspecified type Subacute cough Sinus congestion Other diseases of nasal cavity and sinuses Chronic cough- Primary Cough Anemia, unspecified type Routine general medical examination at health care facility- Primary Routine general medical examination at a health care facility Benign head tremor Stage 3a chronic kidney disease (HCC) Essential hypertension, benign BPH with obstruction/lower urinary tract symptoms Prediabetes Other abnormal glucose Mixed hyperlipidemia Influenza vaccine refused Allergic rhinitis, unspecified seasonality, unspecified trigger- Primary documented in this encounter [facility]* Diagnosis Viral URI with cough- Primary Essential hypertension, benign Chronic cough- Primary Cough Post-nasal drainage Other diseases of nasal cavity and sinuses Essential hypertension, benign- Primary Mixed hyperlipidemia Stage 3a chronic kidney disease (HCC) Prediabetes Other abnormal glucose Elevated PSA, between 10 and less than 20 ng/ml OAB (overactive bladder) Chronic rhinitis Pain and swelling of left lower leg- Primary Cellulitis of left lower extremity Allergic rhinitis, unspecified seasonality, unspecified trigger Acute deep vein thrombosis (DVT) of popliteal vein of left lower extremity (HCC)- Primary Essential hypertension, benign Essential hypertension, benign- Primary Acute deep vein thrombosis (DVT) of popliteal vein of left lower extremity (HCC) Essential hypertension, benign- Primary Acute deep vein thrombosis (DVT) of popliteal vein of left lower extremity (HCC) Essential hypertension, benign Swelling of left lower extremity- Primary Bilateral lower extremity edema Essential hypertension, benign Dermatitis Contact dermatitis and other eczema, due to unspecified cause Bilateral lower extremity edema- Primary Dermatitis Contact dermatitis and other eczema, due to unspecified cause Essential hypertension, benign Medicare annual wellness visit, subsequent- Primary Essential hypertension, benign Benign head tremor Urge incontinence OAB (overactive bladder) Bilateral lower extremity edema Prediabetes Other abnormal glucose Mixed hyperlipidemia Screening for prostate cancer Special screening for malignant neoplasm of prostate Bilateral lower extremity edema- Primary Essential hypertension, benign Greater trochanteric bursitis of right hip- Primary Essential hypertension, benign Spinal stenosis of lumbosacral region- Primary Urinary retention Unspecified retention of urine Anemia, unspecified type Acute bacterial sinusitis Acute sinusitis, unspecified Post-nasal drainage Other diseases of nasal cavity and sinuses Bilateral lower extremity edema Essential hypertension, benign- Primary Drug-induced constipation Other constipation Toenail fungus Sinus congestion Other diseases of nasal cavity and sinuses Primary hypertension Unspecified essential hypertension Urinary retention Unspecified retention of urine Chronic rhinitis Subacute cough Anemia, unspecified type Acute pulmonary embolism, unspecified pulmonary embolism type, unspecified whether acute cor pulmonale present (HCC)- Primary Essential hypertension, benign Anemia, unspecified type Subacute cough Sinus congestion Other diseases of nasal cavity and sinuses Chronic cough- Primary Cough Anemia, unspecified type Routine general medical examination at health care facility- Primary Routine general medical examination at a health care facility Benign head tremor Stage 3a chronic kidney disease (HCC) Essential hypertension, benign BPH with obstruction/lower urinary tract symptoms Prediabetes Other abnormal glucose Mixed hyperlipidemia Influenza vaccine refused Mixed hyperlipidemia- Primary Stage 3a chronic kidney disease (HCC) Other pulmonary embolism without acute cor pulmonale, unspecified chronicity (HCC) Sinus congestion Other diseases of nasal cavity and sinuses Prediabetes Other abnormal glucose Allergic rhinitis, unspecified seasonality, unspecified trigger Essential hypertension, benign OAB (overactive bladder) Essential (primary) hypertension Unspecified essential hypertension Slow transit constipation Chronic rhinitis documented in this encounter [facility] Discharge instructions* Attachments The following attachments cannot be sent through Care Everywhere. * How to Care for Your Suprapubic Urinary Catheter (Nauruan) [facility] Consultation (Urgent) - Closed Specialty Diagnoses / Procedures Referred By Juan Francisco cadena Referred To Contact Orthopedic Surgery Diagnoses Primary osteoarthritis of right hip Hermann Damian MD [address] [facility] [place] [address] Jermaine Arceo MD [address] [facility] [address] [place] [address] Referral ID Status Reason Start Date Expiration Date V isits Requested Visits Authorized [id number] Closed Specialty Services Required 05/26/2023 05/25/2024 1 1 [facility] for referral (narrative)* Consultation (Routine) - Pending Review Specialty Diagnoses / Procedures Referred By Juan Francisco cadena Referred To Contact Otolaryngology Diagnoses Subacute cough Sinus congestion Procedures [place] OFFICE/OUTPATIENT NEW HIGH MDM 60 MINUTES Gretchen Cabrera APRN - AQUATICS MANAGER [address] [facility] [place] [address] Dennis Murcia, DO [address] [facility] [address] [place] [address] Referral ID Status Reason Start Date Expiration Date Visits Requested Visits Authorized [id number] Pending Review Specialty Services Required 10/13/2023 10/12/2024 1 1 [facility] Consultation (Routine) - Pending Review Specialty Diagnoses / Procedures Referred By Juan Francisco t Referred To Contact Otolaryngology Diagnoses Chronic cough Procedures [place] OFFICE/OUTPATIENT [facility] MDM 60 MINUTES Gretchen Cabrera APRN - CNP [address] [facility] [place] [address] Stephen Jose [address] [place] [address] Referral ID Status Reason Start Date Expiration Date Visits Requested Visits Authorized [id number] Pending Review Specialty Services Required 11/12/2023 11/11/2024 1 1 [facility] Discharge Instructions * Instructions* Angel Solis MD - 05/28/2019 DISCHARGE INSTRUCTIONS Thank you very much for allowing me to participate in your care, it is truly a privilege. Below please see discharge orders that will help you during your recovery. Please do not hesitate to call theoffice at [phone] for any questions. After hours, the same number will allow you to reach the on-call surgeon. ? Call the office to schedule your post-operative appointment with Dr. Solis or PA/OPERATIONAL TRAINER for 2 weeks if not already scheduled. o (May need to be seen before 2 weeks if stitches and/or drains present) ? Change bandages daily or more frequently if needed. o Keep incisions clean with soap/ water daily. (Peroxide OK as well) o Cover incision(s) as needed. o Please remove the Steri-Strips 5 days after surgery. Please remove the Steri- Strips as instructed5 days after your date of surgery. This includes any clear bandages and gauze placed in the navel, if applicable. ? Diet: Regular ? General guidelines for activity: no heavy lifting for 2 weeks o OK to shower in 24 hours ? You may have pain medicine ordered. Please take as directed/needed. ? Some discomfort, mild bruising, and swelling are not unusual; please call my office if you have any severe pain, hemorrhage, or high fever (over 101 F) ? Resume home medications as directed (see medication reconciliation sheet) ? Watch for signs of infection: Excessive warmth or bright redness around your incisions Leakage of bloody or cloudy fluid from you incisions Fever over 100.5 ? If you experience constipation o Increase your water intake. o Increase your activity; walking is best. o An over the counter stool softener or mild laxative may be necessary if you still have not had a bowel movement after several days. Please call the office at [phone] for any questions and too make your post op appointment if needed. Thank you again for allowing me to participate in your care, and get well soon! Angel Solis MD documented in this encounter History of Present Illness * Chelita Ospina, AILYN - 05/28/2019 9:55 AM EST SCD's applied documented in this encounter Assessments Diagnosis Umbilical hernia without obstruction and without gangrene- Primary Advance Directives No Advanced Directives Records FoundDocuments on File Type Date Recorded Patient Risk Management Analyst Expl anation Advance Directives and Living Will Power of Passenger Tire Builder Latest Code Status on File Code Status Date Activated Date Inactivated Comments Full Code 05/28/2019 8:59 AM Documents on File Type Date Recorded Patient Risk Management Analyst Expl anation ACP-Advance Directive ACP-Power of Passenger Tire Builder Latest Code Status on File Code Status Date Activated Date Inactivated Comments Full Code 05/28/2019 8:59 AM 05/28/2019 3:18 PM Latest Code Status on File Code Status Date Activated Date Inactivated Comments Full Code 07/31/2023 3:07 PM 08/05/2023 4:17 PM Latest Code Status on File Code Status Date Activated Date Inactivated Comments Full Code 07/31/2023 3:07 PM 08/05/2023 4:17 PM Latest Code Status on File Code Status Date Activated Date Inactivated Comments Full Code 10/03/2023 11:41 PM Code Status History Code Status Date Activated Date Inactivated Comments Full Code 07/31/2023 3:07 PM 08/05/2023 4:17 PM Latest Code Status on File Code Status Date Activated Date Inactivated Comments Full Code 10/03/2023 11:41 PM 10/06/2023 7:55 PM Code Status History Code Status Date Activated Date Inactivated Comments Full Code 07/31/2023 3:07 PM 08/05/2023 4:17 PM Date Activated Date Inactivated Comments 10/03/2023 11:41 PM 10/06/2023 7:55 PM Date Activated Date Inactivated Comments 07/31/2023 3:07 PM 08/05/2023 4:17 PM Date Activated Date Inactivated Comments 10/03/2023 11:41 PM 10/06/2023 7:55 PM Date Activated Date Inactivated Comments 07/31/2023 3:07 PM 08/05/2023 4:17 PM Documents on File Type Date Recorded Patient Risk Management Analyst Expl anation Power of Passenger Tire Builder 01/05/2024 7:20 AM Advance Directives and Livin g Will 01/05/2024 7:19 AM Date Activated Date Inactivated Comments 01/05/2024 11:06 AM Date Activated Date Inactivated Comments 10/03/2023 11:41 PM 10/06/2023 7:55 PM Date Activated Date Inactivated Comments 07/31/2023 3:07 PM 08/05/2023 4:17 PM Documents on File Type Date Recorded Patient Risk Management Analyst Expl anation Power of Passenger Tire Builder 01/05/2024 7:20 AM Advance Directives and Livin g Will 01/05/2024 7:19 AM Date Activated Date Inactivated Comments 01/05/2024 11:06 AM 01/06/2024 7:37 PM Date Activated Date Inactivated Comments 10/03/2023 11:41 PM 10/06/2023 7:55 PM Date Activated Date Inactivated Comments 07/31/2023 3:07 PM 08/05/2023 4:17 PM Date Activated Date Inactivated Comments 01/05/2024 11:06 AM 01/06/2024 7:37 PM Summary Purpose Family History No Family History Records FoundNo Family History Records FoundNo Family History Records FoundNo Family History Records FoundNo Family History Records Found Reason for Referral Specialty Diagnoses / Procedures Referred By Juan Francisco cadena Referred To Contact Cardiology Diagnoses Pain and swelling of left lower leg Procedures Vascular US lower extremity venous duplex left JosefinaalAliciaca, SCIENCE JOB TITLES - AQUATICS MANAGER [address] [place] [address] Referral ID Status Reason Start Date Expiration Date V isits Requested Visits Authorized [id number] Closed Perform Procedure 11/04/2022 05/03/2023 1 1 Specialty Diagnoses / Procedures Referred By Contac t Referred To Contact Cardiology Diagnoses Swelling of left lower extremity Procedures Vascular US lower extremity venous duplex left JusticeenthalAliciaca, SCIENCE JOB TITLES - AQUATICS MANAGER [address] [place] [facility] [place] [address] Referral ID Status Reason Start Date Expiration Date Visits Re quested Visits Authorized [id number] Closed 04/03/2023 04/02/2024 1 1 Specialty Diagnoses / Procedures Referred By Contac t Referred To Contact Diagnoses Greater trochanteric bursitis of right hip Hermann Damian MD 25 [place] [address] Referral ID Status Reason Start Date Expiration Date V isits Requested Visits Authorized [id number] Pending Review 05/20/2023 05/14/2024 1 1 Specialty Diagnoses / Procedures Referred By Contac t Referred To Contact Orthopedic Surgery / Orthopaedic Surgery Diagnoses Greater trochanteric bursitis of right hip Procedures Large Joint Injection/Arthrocentesis Hermann Damian MD 25 [place] [address] Referral ID Status Reason Start Date Expiration Date Visits Re quested Visits Authorized [id number] Closed 05/20/2023 05/14/2024 1 1 Additional Source Comments (unrecognized sect ion and content) No Status Records FoundNo Status Records FoundNo Status Records FoundNo Status Records FoundNo Status Records Found INFORMATION SOURCE (unrecogn ized section and content) DATE CREATED AUTHOR 01/18/2020 [employer] DATE CREATED AUTHOR AUTHOR'S ORGANIZ ATION 12/18/2021 [facility] [employer] DATE CREATED AUTHOR AUTHOR'S ORGANIZ ATION 08/22/2023 [facility] DATE CREATED AUTHOR AUTHOR'S ORGANIZ ATION 05/11/[address] [facility] DATE CREATED AUTHOR AUTHOR'S ORGANIZ ATION 10/14/2024 [facility] Care Teams (unrecognized sec tion and content) Group Home Counselor Relationship Specialty Start Date End Date Hermann Damian MD [address] [place] [address] PCP - General 09/21/18 Group Home Counselor Relationship Specialty Start Date End Date Hermann Damian MD [address] [facility] [place] [address] PCP - General 09/21/18 Group Home Counselor Relationship Specialty Start Date End Date Hermann Damian MD [address] [place] [address] PCP - General 09/21/18 Group Home Counselor Relationship Specialty Start Date End Date Hermann Damian MD [address] [facility] [place] [address] PCP - General 09/21/18 Group Home Counselor Relationship Specialty Start Date End Date Hermann Damian MD [address] [facility] [place] [address] PCP - General 09/21/18 Group Home Counselor Relationship Specialty Start Date End Date Hermann Damian MD [address] [facility] [place] [address] PCP - General 09/21/18 Group Home Counselor Relationship Specialty Start Date End Date Hermann Damian MD [address] [facility] [place] [address] PCP - General 09/21/18 Group Home Counselor Relationship Specialty Start Date End Date Hermann Damian MD [address] [facility] [place] [address] PCP - General 09/21/18 Group Home Counselor Relationship Specialty Start Date End Date Hermann Damian MD [address] [facility] [place] [address] PCP - General 09/21/18 Group Home Counselor Relationship Specialty Start Date End Date Hermann Damian MD [address] [facility] [place] [address] PCP - General 09/21/18 Group Home Counselor Relationship Specialty Start Date End Date Hermann Damian MD [address] [facility] [place] [address] PCP - General 09/21/18 Group Home Counselor Relationship Specialty Start Date End Date Hermann Damian MD [address] [facility] [place] [address] PCP - General 09/21/18 Group Home Counselor Relationship Specialty Start Date End Date Hermann Damian MD [address] [facility] [place] [address] PCP - General 09/21/18 Group Home Counselor Relationship Specialty Start Date End Date Hermann Damian MD [address] [place] [address] PCP - General 09/21/18 Group Home Counselor Relationship Specialty Start Date End Date Hermann Damian MD [address] [facility] [place] [address] PCP - General 09/21/18 Group Home Counselor Relationship Specialty Start Date End Date Hermann Damian MD [address] [place] [address] PCP - General 09/21/18 Group Home Counselor Relationship Specialty Start Date End Date Hermann Damian MD [address] [place] [address] PCP - General 09/21/18 Group Home Counselor Relationship Specialty Start Date End Date Hermann Damian MD [address] [place] [address] PCP - General 09/21/18 Group Home Counselor Relationship Specialty Start Date End Date Hermann Damian MD [address] [facility] [place] [address] PCP - General 09/21/18 Group Home Counselor Relationship Specialty Start Date End Date Hermann Damian MD [address] [facility] [place] [address] PCP - General 09/21/18 Group Home Counselor Relationship Specialty Start Date End Date Hermann Damian MD [address] [facility] [place] [address] PCP - General 09/21/18 Group Home Counselor Relationship Specialty Start Date End Date Hermann Damian MD [address] [facility] [place] [address] PCP - General 09/21/18 Group Home Counselor Relationship Specialty Start Date End Date Hermann Damian MD [facility] [place] [address] PCP - General 09/21/18 Group Home Counselor Relationship Specialty Start Date End Date Hermann Damian MD [facility] [place] [address] PCP - General 09/21/18 Group Home Counselor Relationship Specialty Start Date End Date Hermann Damian MD [place] [address] PCP - General 09/21/18 Group Home Counselor Relationship Specialty Start Date End Date Hermann Damian MD [facility] [place] [address] PCP - General 09/21/18 Ciro Frausto MD [address] [facility] [address] [place] [phone] Surgeon Urology 08/28/23 Group Home Counselor Relationship Specialty Start Date End Date Hermann Damian MD [address] [place] [address] PCP - General 09/21/18 Ciro Frausto MD [address] [facility] [address] [place] [phone] Surgeon Urology 08/28/23 Group Home Counselor Relationship Specialty Start Date End Date Hermann Damian MD [facility] [address] [place], [place] [phone] PCP - General 09/21/18 Ciro Frausto MD [address] [facility] [address] [place] [address] Surgeon Urology 08/28/23 Sana Marcos DO [address] [facility] [address] [place] [address] Surgeon Urology 09/08/23 Group Home Counselor Relationship Specialty Start Date End Date Hermann Damian MD [place], [place] [id number] PCP - General 09/21/18 Ciro Frausto MD [address] [facility] [address] [place] [address] Surgeon Urology 08/28/23 Sana Marcos DO [address] [facility] [address] [place] [address] Surgeon Urology 09/08/23 Group Home Counselor Relationship Specialty Start Date End Date Hermann Damian MD [address] [facility] [place] [phone] PCP - General 09/21/18 Ciro Frausto MD [address] [place] [address] Surgeon Urology 08/28/23 Sana Marcos DO [address] [facility] [address] [place] [address] Surgeon Urology 09/08/23 Group Home Counselor Relationship Specialty Start Date End Date Hermann Damian MD [address] [place] [address] [address] [place], [place] [phone] PCP - General 09/21/18 Ciro Frausto MD [address] [place] [address] [address] [place] [address] Surgeon Urology 08/28/23 Sana Marcos DO [address] [place] [address] [address] [place] [address] Surgeon Urology 09/08/23 Group Home Counselor Relationship Specialty Start Date End Date Hermann Damian MD [address] [place] [address] [place] [address] PCP - General 09/21/18 Ciro Frausto MD [address] [place] [address] [address] [place] [address] Surgeon Urology 08/28/23 Sana Marcos DO [address] [place] [address] [address] [place] [address] Surgeon Urology 09/08/23 Group Home Counselor Relationship Specialty Start Date End Date Hermann Damian MD [address] [place] [address] [place] [address] PCP - General 09/21/18 Ciro Frausto MD [address] [place] [address] [address] [place] [phone] Surgeon Urology 08/28/23 Sana Marcos DO [address] [place] [address] [place] [address] Surgeon Urology 09/08/23 Group Home Counselor Relationship Specialty Start Date End Date Hermann Damian MD [address] [place] [address] PCP - General 09/21/18 Ciro Frausto MD [address] [place] [phone] Surgeon Urology 08/28/23 Sana Marcos DO [address] [place] [address] Surgeon Urology 09/08/23 Group Home Counselor Relationship Specialty Start Date End Date Hermann Damian MD [address] [place] [address] PCP - General 09/21/18 Ciro Frausto MD [address] [place] [phone] Surgeon Urology 08/28/23 Sana Marcos DO [address] [address] Surgeon Urology 09/08/23 Group Home Counselor Relationship Specialty Start Date End Date Hermann Damian MD [address] [place] [address] PCP - General 09/21/18 Ciro Frausto MD [address] [place] [address] Surgeon Urology 08/28/23 Sana Marcos DO [address] [place] [address] Surgeon Urology 09/08/23 Group Home Counselor Relationship Specialty Start Date End Date Hermann Damian MD [address] [facility] [address] [place], [place] [phone] PCP - General 09/21/18 Ciro Frausto MD [address] [place] [address] Surgeon Urology 08/28/23 Sana Marcos DO [address] [place] [address] Surgeon Urology 09/08/23 Group Home Counselor Relationship Specialty Start Date End Date Hermann Damian MD [address] [place] [address] [address] [place], [place] [id number] PCP - General 09/21/18 Ciro Frausto MD [address] [place] [address] Surgeon Urology 08/28/23 Sana Marcos DO [address] [place] [address] Surgeon Urology 09/08/23 Group Home Counselor Relationship Specialty Start Date End Date Hermann Damian MD [address] [place] [address] [address] [place], [place] [phone] PCP - General 09/21/18 Ciro Frausto MD [address] [place] [address] [address] [place] [phone] Surgeon Urology 08/28/23 Sana Marcos DO [address] [place] [address] [address] [place] [address] Surgeon Urology 09/08/23 Group Home Counselor Relationship Specialty Start Date End Date Hermann Damian MD [address] [place] [phone] PCP - General 09/21/18 Ciro Frausto MD [address] [place] [address] [address] [place] [phone] Surgeon Urology 08/28/23 Sana Marcos DO [address] [place] [address] [address] [place] [address] Surgeon Urology 09/08/23 Dana Plummer, quality compliance coordinatorBranding 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 Group Home Counselor Relationship Specialty Start Date End Date Hermann Damian MD [address] [place] [id number] PCP - General 09/21/18 Ciro Frausto MD [address] [place] [address] [address] [place] [phone] Surgeon Urology 08/28/23 Sana Marcos DO [address] [facility] [address] [place] [address] Surgeon Urology 09/08/23 Dana Plummer, quality compliance coordinatorBranding 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 Group Home Counselor Relationship Specialty Start Date End Date Herm[place] [address] PCP - General 09/21/18 Ciro Frausto MD [address] [facility] [address] [place] [phone] Surgeon Urology 08/28/23 Sana Marcos DO [address] [address] Surgeon Urology 09/08/23 Dana Plummer RN Care Branding 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 Group Home Counselor Relationship Specialty Start Date End Date Hermann [place] [address] PCP - General 09/21/18 Ciro Frausto MD [address] [phone] Surgeon Urology 08/28/23 Sana Marcos DO [address] [facility] [address] [place] [address] Surgeon Urology 09/08/23 Dana Plummer, quality compliance coordinatorBranding 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 Group Home Counselor Relationship Specialty Start Date End Date Hermann Damian MD [address] [place] [address] PCP - General 09/21/18 Ciro Frausto MD [address] [facility] [address] [place] [phone] Surgeon Urology 08/28/23 Sana Marcos DO [address] [facility] [address] [place] [address] Surgeon Urology 09/08/23 Dana Plummer, quality compliance coordinatorBranding 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 Group Home Counselor Relationship Specialty Start Date End Date Hermann Damian MD [address] [place] [id number] PCP - General 09/21/18 Ciro Frausto MD [address] [facility] [address] [place] [phone] Surgeon Urology 08/28/23 Sana Marcos DO [address] [facility] [address] [place] [address] Surgeon Urology 09/08/23 Dana Plummer, quality compliance coordinatorBranding 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 Group Home Counselor Relationship Specialty Start Date End Date Hermann Damian MD [address] [place] [address] [address] [place], [place] [phone] PCP - General 09/21/18 Ciro Frausto MD [address] [facility] [address] [place] [address] Surgeon Urology 08/28/23 Sana Marcos DO [address] [facility] [address] [place], [place] [phone] Surgeon Urology 09/08/23 Dana Plummer, quality compliance coordinatorBranding 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 Group Home Counselor Relationship Specialty Start Date End Date Hermann Damian MD [address] [place] [phone] PCP - General 09/21/18 Ciro Frausto MD [address] [place] [phone] Surgeon Urology 08/28/23 Sana Marcos DO [address] [place] [address] Surgeon Urology 09/08/23 Dana Plummer RN Care Branding 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 Group Home Counselor Relationship Specialty Start Date End Date Hermann [place] [address] PCP - General 09/21/18 Ciro Frausto MD [address] [place] [phone] Surgeon Urology 08/28/23 Sana Marcos DO [address] [place] [address] Surgeon Urology 09/08/23 Dana Plummer quality compliance coordinatorBranding 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 Group Home Counselor Relationship Specialty Start Date End Date Hermann Damian MD [place], [place] [phone] PCP - General 09/21/18 Ciro Frausto MD [address] [address] [place] [phone] Surgeon Urology 08/28/23 Sana Marcos DO [address] [place] [address] Surgeon Urology 09/08/23 Dana Plummer, quality compliance coordinatorBranding 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 Group Home Counselor Relationship Specialty Start Date End Date Hermann Damian MD 25 [facility] [place], [place] [phone] PCP - General 09/21/18 Ciro Frausto MD [address] [facility] [address] [place] [phone] Surgeon Urology 08/28/23 Sana Marcos DO [address] [facility] [address] [place] [address] Surgeon Urology 09/08/23 Dana Plummer, quality compliance coordinatorBranding 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 Group Home Counselor Relationship Specialty Start Date End Date eHrmann Damian MD 25 [facility] [place] [address] PCP - General 09/21/18 Ciro Frausto MD [address] [place] [address] Surgeon Urology 08/28/23 Sana Marcos DO [address] [place] [address] Surgeon Urology 09/08/23 Dana Plummer, quality compliance coordinatorBranding 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 Group Home Counselor Relationship Specialty Start Date End Date Herm[place] [address] PCP - General 09/21/18 Ciro Frausto MD [address] [phone] Surgeon Urology 08/28/23 Sana Marcos DO [address] [place] [phone] Surgeon Urology 09/08/23 Dana Plummer quality compliance coordinatorBranding 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 Group Home Counselor Relationship Specialty Start Date End Date Herm[place] [address] PCP - General 09/21/18 Ciro Frausto MD [address] [place] [phone] Surgeon Urology 08/28/23 Sana Marcos DO [address] [place] [address] Surgeon Urology 09/08/23 Dana Plummer, quality compliance coordinatorBranding 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 Group Home Counselor Relationship Specialty Start Date End Date Herm[place] [address] PCP - General 09/21/18 Ciro Frausto MD [address] [place] [phone] Surgeon Urology 08/28/23 Sana Marcos DO [address] [place] [address] [address] [place] [address] Surgeon Urology 09/08/23 Dana Plummer, quality compliance coordinatorBranding 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 Group Home Counselor Relationship Specialty Start Date End Date Hermann Damian MD 25 [facility] [place], [place] [phone] PCP - General 09/21/18 Ciro Frausto MD [address] [place] [phone] Surgeon Urology 08/28/23 Sana Marcos DO [address] [place] [address] 165 [place] [address] Surgeon Urology 09/08/23 Dana Plummer RN Care Branding 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 Group Home Counselor Relationship Specialty Start Date End Date Hermann Damian MD [address] [place] [address] [place], [place] [phone] PCP - General 09/21/18 Ciro Frausto MD [address] [place] [address] [address] [place] [phone] Surgeon Urology 08/28/23 Sana Marcos DO [address] [place] [address] [address] [place] [address] Surgeon Urology 09/08/23 Dana Plummer quality compliance coordinatorBranding 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 Group Home Counselor Relationship Specialty Start Date End Date Hermann Damian MD [facility] [place], [place] [phone] PCP - General 09/21/18 Ciro Frausto MD [address] [facility] [address] [place] [phone] Surgeon Urology 08/28/23 Sana Marcos DO [address] [facility] [address] [place], [place] [phone] Surgeon Urology 09/08/23 Dana Plummer, quality compliance coordinatorBranding 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 Group Home Counselor Relationship Specialty Start Date End Date Hermann Damian MD [facility] [place] [address] PCP - General 09/21/18 Cior Frausto MD [address] [facility] [address] [place] [phone] Surgeon Urology 08/28/23 Sana Marcos DO [address] [facility] [address] [place] [address] Surgeon Urology 09/08/23 Dana Plummer, quality compliance coordinatorBranding 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 Group Home Counselor Relationship Specialty Start Date End Date Hermann Damian MD 25 [facility] [place] [phone] PCP - General 09/21/18 Ciro Frausto MD [address] [place] [phone] Surgeon Urology 08/28/23 Sana Marcos DO 95 [facility] [address] [place] [address] Surgeon Urology 09/08/23 Dana Plummer, quality compliance coordinatorBranding 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 Group Home Counselor Relationship Specialty Start Date End Date Hermann Damian MD [address] [place] [address] PCP - General 09/21/18 Ciro Frausto MD [address] [place] [phone] Surgeon Urology 08/28/23 Sana Marcos DO [address] [place] [address] Surgeon Urology 09/08/23 Dana Plummer RN Care Branding 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 Group Home Counselor Relationship Specialty Start Date End Date Hermann Damian MD [address] [place] [address] PCP - General 09/21/18 Ciro Frausto MD [address] [place] [phone] Surgeon Urology 08/28/23 Sana Marcos DO [address] [address] Surgeon Urology 09/08/23 Dana Plummer, quality compliance coordinatorBranding 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 Group Home Counselor Relationship Specialty Start Date End Date Hermann Damian MD [address] [place] [phone] PCP - General 09/21/18 Ciro Frausto MD [address] [place] [address] [phone] Surgeon Urology 08/28/23 Sana Marcos DO [address] [place] [address] Surgeon Urology 09/08/23 Dana Plummer, quality compliance coordinatorBranding 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 Group Home Counselor Relationship Specialty Start Date End Date Hermann Damian MD [address] [place] [phone] PCP - General 09/21/18 Ciro Frausto MD [address] [place] [phone] Surgeon Urology 08/28/23 Sana Marcos DO [address] [place] [address] Surgeon Urology 09/08/23 Dana Plummer, quality compliance coordinatorBranding 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 Group Home Counselor Relationship Specialty Start Date End Date Hermann Damian MD [address] [place] [phone] PCP - General 09/21/18 Ciro Frausto MD [address] [place] [address] [address] [place] [phone] Surgeon Urology 08/28/23 Sana Marcos DO [address] [facility] [address] [place] [address] Surgeon Urology 09/08/23 Dana Plummer, quality compliance coordinatorBranding 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 Group Home Counselor Relationship Specialty Start Date End Date Hermann Damian MD [place], [place] [phone] PCP - General 09/21/18 Ciro Frausto MD 95 [facility] [address] [place] [phone] Surgeon Urology 08/28/23 Sana Marcos DO [address] [address] Surgeon Urology 09/08/23 Group Home Counselor Relationship Specialty Start Date End Date Herm[place] [address] PCP - General 09/21/18 Ciro Frausto MD [address] [phone] Surgeon Urology 08/28/23 Sana Marcos DO [address] [facility] [address] [place] [address] Surgeon Urology 09/08/23 Group Home Counselor Relationship Specialty Start Date End Date Herm[place] [address] PCP - General 09/21/18 Ciro Frausto MD [address] [place] [address] Surgeon Urology 08/28/23 Sana Mracos DO [address] [place] [address] Surgeon Urology 09/08/23 Reason for Visit (unrecogniz ed section and content) Reason Onset Date Comments Cough 09/30/2022 Reason Comments Hyperlipidemia prediabetes Hypertension Medication Check 6 month Cough Chronic - wonders if from lisinopril Allergies Seasonal- wants a pl an on what he should take for this Reason Comments Leg Swelling Left leg worse Reason Onset Date Comments Leg Swelling 11/04/2022 Specialty Diagnoses / Procedures Referred By [facility] Referred To Contact Cardiology Diagnoses Pain and swelling of left lower leg Procedures Vascular US lower extremity venous duplex left Bridenthal, Gretchen, SCIENCE [employer] - 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 [address] [place] [address] Referral ID Status Reason Start Date Expiration Date V isits Requested Visits Authorized [id number] Closed Perform Procedure 11/04/2022 05/03/2023 1 1 Reason Onset Date Comments Medication Problem 11/07/2022 Reason Comments Follow-up Leg Swelling Left leg Reason Comments Blood Pressure Check Discuss Medications Reason Comments Follow-up Leg Pain Reason Onset Date Comments Joint Swelling 04/03/2023 Reason Comments Joint Swelling Bilateral ankles Specialty Diagnoses / Procedures Ref[facility] Referred To Contact Cardiology Diagnoses Swelling of left lower extremity Procedures Vascular US lower extremity venous duplex left Bridenthal, Gretchen, SCIENCE JOB TITLES - AQUATICS MANAGER [address] [facility] [place] [address] Referral ID Status Reason Start Date Expiration Date Visits Re quested Visits Authorized [id number] Closed 04/03/2023 04/02/2024 1 1 Reason Onset Date Comments Leg Swelling 04/07/2023 Reason Comments Leg Swelling Reason Comments Medicare Annual Wellness Visit Subsequen t Blood Work Health Maintenance Flu vaccine- refuseR sv vaccine- not doneDermatology skin check- [id number] covid vaccine- pt states will not get any more Edema In ankles Reason Comments Follow-up Blood Pressure Check Leg Swelling Reason Comments Hip Pain Right - very bad at night seen [facility] and had injections and made so much worse Fall While on vacation Specialty Diagnoses / Procedures Referred By [facility] Referred To Contact Diagnoses Greater trochanteric bursitis of right hip Hermann Damian MD [address] [place] [address], [place] [address] Referral ID Status Reason Start Date Expiration Date V isits Requested Visits Authorized [id number] Pending Review 05/20/2023 05/14/2024 1 1 Reason Onset Date Comments Other 05/26/2023 Reason Comments New Patient Spinal stenosis Reason Onset Date Comments Med Refill 05/26/2023 Specialty Diagnoses / Procedures Referred By [facility] Referred To Contact Diagnoses Spinal stenosis, lumbar region with neurogenic claudication Spondylolisthesis, lumbar region Spinal stenosis, lumbar region with neurogenic claudication [M48.062] Spondylolisthesis, lumbar region [M43.16] Procedures NV ARTHRODESIS POSTERIOR/PSTLAT TQ 1NTRSPC LUMBAR NV POSTERIOR SEGMENTAL INSTRUMENTATION 3-6 VRT SEG NV WILLIS FACETECTOMY & FORAMOTOMY 1 VRT SGM LUMBAR NV WILLIS FACETECTOMY&FORAMOT 1 VRT SGM EA ADDL SGM NV WILLIS FACETECTOMY&FORAMOT 1 VRT SGM EA ADDL SGM NV ARTHRODESIS PST/PSTLAT TQ 1NTRSPC EA ADDL NTRSPC NV ARTHRODESIS PST/PSTLAT TQ 1NTRSPC EA ADDL NTRSPC NV STEREOTACTIC COMPUTER ASSISTED PX SPINAL LUMBAR 2/3/4 LAMINECTOMY, LUMBAR 4-5 FUSION Ta Young MD [address] [place] [address] [facility] Main Or [address] [place] [address] Referral ID Status Reason Start Date Expiration Date Visits Re quested Visits Authorized [id number] 1 1 Reason Comments voiding trial Reason Comments Anorexia Constipation Cough Reason Comments Other VT Reason Comments Hypertension Cough Reason Comments Procedure cystoscopy Reason Onset Date Comments Surgery Scheduling 09/29/2023 Specialty Diagnoses / Procedures Referred By [facility] t Referred To Contact Diagnoses Hypoxia Procedures [id number] Anna Orozco, [address] [place] [address] [facility] Emergency Dept [address] [place] [address] Referral ID Status Reason Start Date Expiration Date Visits Re quested Visits Authorized [id number] 1 1 Reason Onset Date Comments Wheezing 10/03/2023 Reason Comments Shortness of Breath Patient arrives to E D via EMS from home with complaints of shortness of breath. Patient was found to be at 89% on room air at home. Arrives 93% on room air on arrival. Patient denies any chest pain. Endorses lack of appetite and generalized weakness that he feels is getting worse. Sinus drainage and headache x2 months. Had procedure done in July, and has been having a hard time urinating following this so he has had a lopez catheter placed. States that this was changed last week at urology office. Specialty Diagnoses / Procedures Referred By [facility] t Referred To Contact Diagnoses Hypoxia Procedures [id number] Anna Orozco DO [address] [place] [address] [facility] Emergency Dept [address] [place] [address] Reason Onset Date Comments Other 10/07/2023 Reason Onset Date Comments Hospital Follow-up 10/07/2023 Reason Onset Date Comments Other 10/07/2023 Release of Information 10/07/2023 Reason Comments Hospital Follow-up Cough Reason Onset Date Comments Results 10/14/2023 Reason Comments Follow-up Patient present for three month follow up with xrays. Reason Onset Date Comments Cough 11/03/2023 Reason Comments Follow-up Reason Comments Follow-up Urinary Retention Discuss surgery opti ons Reason Comments Follow-up Surgical Clearance Reason Onset Date Comments Other 01/02/2024 Specialty Diagnoses / Procedures Referred By Contac t Referred To Contact Diagnoses Benign prostatic hyperplasia with lower urinary tract symptoms Retention of urine, unspecified Procedures NV CYSTOURETHROSCOPY NV TRURL ELECTROSURG RESCJ PROSTATE BLEED COMPLETE NV ASPIRATION BLADDER INSERT SUPRAPUBIC CATHETER CYSTOSCOPY TRANSURETHRAL RESECTION OF PROSTATE INSERTION OF SUPRAPUBIC TUBE Sana Marcos, DO [address] [place] [address] Referral ID Status Reason Start Date Expiration Date Visits Re quested Visits Authorized [id number] 12/17/2023 1 1 Reason Onset Date Comments Other 01/13/2024 [facility] Reason Onset Date Comments Surgery Scheduling 12/16/2023 Reason Comments Groin Pain Pt reports pain in h is groin that started yesterday after riding a stationary bike for 15 minutes. Pt had a suprapubic catheter placed 2 weeks ago, pt denies fevers. Pt is incontinent, urinating with his penis in addition to the suprapubic catheter, catheter also appears to be leaking at the site, urine is malodorous and cloudy. Reason Comments Urinary Retention Pt has suprapubic ca theter that has stopped draining. Began to have pain when going to sleep. Reason Comments Urinary Catheter Problem Pt here for night in a row for catheter to be flushed. Pt has had to have pain medications and catheter flushed for it to drain. Pt reports he has settlement in his catheter clogging it due to a UTI. Pt has suprapubic catheter and has a urologist who he called today. Reason Comments Abdominal Pain Reason Comments Post-op TURP./ Home health n audrae think SPT maybe infected Reason Comments URI States that his nose has been running like crazy, sneezing, watery eyes. States that he has surgery coming up next Friday and wants to get checked out before then. Reason Onset Date Comments Urinary Problem 04/09/2024 Reason Onset Date Comments Med Refill 04/09/2024 Reason Comments Medicare Annual Wellness Visit Subsequen t Blood Work Health Maintenance Dermatology referral - refuseFlu vaccine- [id number] covid vaccine- not done Orders Asking for cough syr up Reason Onset Date Comments Constipation 04/15/2024 Reason Onset Date Comments Med Refill 05/24/2024 Reason Onset Date Comments Facial Pain 09/28/2024 Reason Comments Sinusitis Patient has complain ts of sinus pressure, headache, nasal drips that comes and goes. Patient reports he has had these symptoms for the past couple months Reason Comments Medication Check Med Refill Other Wants refill on oxyb utynin-advised patient it may have to come from urology Scheduled Active and Recently Administ ered Medications (unrecognized section and content) Medication Order 08/03/2023 08/04/2023 08/05/2023 cetirizine (ZyrTEC) tablet 10 mg 10 mg, Oral, Daily, First dose on Alyce 07/31/23 at 2200, Phase II/On Unit 2129 (Given - Provider: Farzana Henry, AILYN) 2101 (Given - Provider: Arti Millan, AILYN) docusate sodium (Colace) capsule 100 mg 100 mg, Oral, 2 times daily, First dose on Alyce 07/31/23 at 2100, Phase II/On Unit, Bowel Regimen - for prevention of constipation., , On hold since 08/03/2023 at 0852 until manually unheld 0804 (Given - Provider: Yue Grace RN)0852 (Held by provider - Provider: James Simpson MD - Reason: Other)2100 (Dose Auto Held - Provider: James Simpson MD) 0900 (Dose Auto Held - Provider: James Simpson MD)2100 (Dose Auto Held - Provider: James Simpson MD) 0900 (Dose Auto Held - Provider: James Simpson MD)1617 (Unheld by provider - Provider: Automatic Discharge Provider) famotidine (Pepcid) tablet 20 mg 20 mg, Oral, 2 times daily, First dose on [facility] 08/02/23 at 1200 0804 (Given - Provider: Yue Grace RN)2129 (Given - Provider: Farzana Henry, AILYN) 0925 (Given - Provider: Chaya Cartwright RN)2101 (Given - Provider: Arti Millan, AILYN) 0815 (Given - Provider: Cierra Williamson RN) Lidocaine 4 % patch 1 patch 1 patch, Topical, Administer over 12 Hours, Daily, First dose on Alyce 07/31/23 at 1515, Phase II/On Unit, Apply patch to LUMBAR SPINE. Patch may remain in place for up to 12 hours in any 24 hour period. 0804 (Medication Applied - Provider: Yue Grace RN)2132 (Medication Removed - Provider: Farzana Henry, AILYN) 09 (Medication Applied - Provider: Chaya Cartwright, AILYN)2124 (Medication Removed - Provider: Arti Millan, AILYN) 0815 (Medication Applied - Provider: Cierra Williamson, AILYN)1406 (Due: Medication Removed - Provider: Automatic Discharge Provider - Comment: Time automatically adjusted from order being discontinued) polyethylene glycol (PEG) 3350 (Miralax) packet 17 g 17 g, Oral, Daily, First dose on Alyce 07/31/23 at 1515, Phase II/On Unit, Bowel Regimen - for prevention of constipation., , On hold since Fri08/03/2023 at 0852 until manually unheld 08 (Given - Provider: Yue Grace RN)0852 (Held by provider - Provider: James Simpsno MD - Reason: Other) 0900 (Dose Auto Held - Provider: James Simpson MD) 0900 (Dose Auto Held - Provider: James Simpson MD)1617 (Unheld by provider - Provider: Automatic Discharge Provider) sodium chloride 0.9% (NS) flush 10 mL 10 mL, IntraVENous, Every 12 hours scheduled (2 times per day), First dose on Alyce 07/31/23 at 2100, Phase II/On Unit 0814 (Given - Provider: Yue Grace RN)2129 (Given - Provider: Farzana Henry, AILYN) 09 (Not Given - Provider: Chaya Cartwright RN - Reason: Other)2102 (Given - Provider: Arti Millan, AILYN) 0815 (Given - Provider: Cierra Williamson, AILYN) tamsulosin (Flomax) 24 hr capsule 0.4 mg 0.4 mg, Oral, Daily, First dose on 08/02/23 at 1315, Do not crush, chew, or split. 0804 (Given - Provider: Yue Grace RN) 09 (Given - Provider: Chaya Cartwright, AILYN) 0815 (Given - Provider: Cierra Williamson, AILYN) valsartan (Diovan) tablet 40 mg 40 mg, Oral, Daily, First dose on Alyce 07/31/23 at 1515, Phase II/On Unit, Hold if systolic blood pressure less than 100, , On hold since Fri08/03/2023 at 1305 until manually unheld 0803 (Given - Provider: Yue Grace RN)1305 (Held by provider - Provider: James Simpson MD - Reason: Other - Comment: Due to RICHARD) 0900 (Dose Auto Held - Provider: James Simpson MD) 0900 (Dose Auto Held - Provider: James Simpson MD)1617 (Unheld by provider - Provider: Automatic Discharge Provider) Continuous Medication Order 08/03/2023 08/04/2023 08/05/2023 sodium chloride 0.9 % infusion () 75 mL/hr, IntraVENous, Continuous, Starting on Fri08/03/23 at 1315, For 24 hours 1315 (New Bag - Provider: Yue Grace RN)1902 (Rate/Dose Verify - Provider: Farzana Henry RN)2133 (Rate/Dose Verify - Provider: Farzana Henry RN) 0013 (Rate/Dose Verify - Provider: Farzana Henry RN)0452 (Rate/Dose Verify - Provider: Farzana Henry RN)1450 (Stopped - Provider: Chaya Cartwright RN) PRN Medication Order 08/03/2023 08/04/2023 08/05/2023 bisacodyl (Dulcolax) EC tablet 5 mg 5 mg, Oral, Daily PRN, constipation, Starting on Fri07/31/23 at 1507, Phase II/On Unit, 1st line for treatment of constipation - give scheduled if no bowel movement in past 24 hours. Do not crush, chew, or split. bisacodyl (Dulcolax) suppository 10 mg 10 mg, Rectal, Daily PRN, constipation, Starting on Fri07/31/23 at 1507, Phase II/On Unit, 2nd line for treatment of constipation - give scheduled (in addition to 1st line agent) if no bowel movement in past 48 hours hydrALAZINE (Apresoline) injection 10 mg 10 mg, IntraVENous, Every 6 hours PRN, high blood pressure, If systolic blood pressure greater than 160, Starting on Alyce 07/31/23 at 1718 morphine injection 2 mg(Linked Group 1) 2 mg, IntraVENous, Every 2 hour PRN, moderate pain (4-6), Starting on Alyce 07/31/23 at 1507, Phase II/On Unit, If oral and IV narcotics ordered, use oral first and only use IV if oral is ineffective or cannot take oral. Do Not give oral and IV within 1 hour of each other unless specifically ordered. morphine injection 4 mg(Linked Group 1) 4 mg, IntraVENous, Every 2 hour PRN, severe pain (7-10), Starting on Alyce 07/31/23 at 1507, Phase II/On Unit, If oral and IV narcotics ordered, use oral first and only use IV if oral is ineffective or cannot take oral. Do Not give oral and IV within 1 hour of each other unless specifically ordered. naloxone (Narcan) injection 0.4 mg 0.4 mg, IntraVENous, Every 5 min PRN, opioid reversal, respiratory depression, Starting on Alyce 07/31/23 at 1508, +++ For RR <10, pinpoint pupils, over sedation for opioid reversal - MUST notify electronic page makeup system operator provider immediately after first dose, may give IM or SQ if no IV access +++ ondansetron (Zofran) injection 4 mg(Linked Group 2) 4 mg, IntraVENous, Every 6 hours PRN, nausea, vomiting, Starting on Alyce 07/31/23 at 1507, Phase II/On Unit, 1st Line. Give IV if patient is unable to take orally. If inadequate response within 60 minutes, proceed to next-line agent or contact provider if no further options ordered. ondansetron ODT (Zofran-ODT) disintegrating tablet 4 mg(Linked Group 2) 4 mg, Oral, Every 8 hours PRN, nausea, vomiting, Starting on Alyce 07/31/23 at 1507, Phase II/On Unit, 1st Line. If inadequate response within 60 minutes, proceed to next-line agent or contact provider if no further options ordered. Patient should allow tablet to dissolve on tongue. Do not remove from blister pack until just before administering. oxyCODONE-acetaminophen (Percocet) 5-325 MG per tablet 1 tablet(Linked Group 3) 1 tablet, Oral, Every 4 hours PRN, moderate pain (4-6), Starting on Alyce 07/31/23 at 1507, Phase II/On Unit, Maximum dose of acetaminophen is 4000 mg from all sources in 24 hours. oxyCODONE-acetaminophen (Percocet) 5-325 MG per tablet 2 tablet(Linked Group 3) 2 tablet, Oral, Every 4 hours PRN, severe pain (7-10), Starting on Alyce 07/31/23 at 1507, Phase II/On Unit, Maximum dose of acetaminophen is 4000 mg from all sources in 24 hours. simethicone (Mylicon) chewable tablet 80 mg 80 mg, Oral, 4 times daily PRN, flatulence, Starting on Fri08/01/23 at 0033 sodium chloride 0.9 % infusion 5-250 mL/hr, IntraVENous, PRN, if patient receiving piggyback infusions and maintenance fluids are not ordered OR KVO fluids to protect IV site / prevent frequent line interruptions/ long duration, Starting on Alyce 07/31/23 at 1507, Phase II/On Unit, For piggyback infusion, administer at same rate as piggyback for a total of 25 mL. Enter 25 mL into dose field and piggyback rate into rate field of order. If piggyback is infusing at a rate less than 100 mL/hr, enter 25 mL into dose field and 100 mL/hr into rate field of order. For KVO fluids, enter rate of 20 mL/hr or less into rate field of order. sodium chloride 0.9% (NS) flush 10 mL 10 mL, IntraVENous, PRN, line care, Starting on Alyce 07/31/23 at 1507, Phase II/On Unit, After every IV line use tiZANidine (Zanaflex) tablet 4 mg 4 mg, Oral, Every 8 hours PRN, muscle spasms, Starting on Aylce 07/31/23 at 1507, Phase II/On Unit Linked Groups Order Group 1: morphine injection 2 mgJump to med 2 mg, IntraVENous, Every 2 hour PRN, moderate pain (4-6), Starting on Alyce 07/31/23 at 1507, Phase II/On Unit, If oral and IV narcotics ordered, use oral first and only use IV if oral is ineffective or cannot take oral. Do Not give oral and IV within 1 hour of each other unless specifically ordered. Or morphine injection 4 mgJump to med 4 mg, IntraVENous, Every 2 hour PRN, severe pain (7-10), Starting on Alyce 07/31/23 at 1507, Phase II/On Unit, If oral and IV narcotics ordered, use oral first and only use IV if oral is ineffective or cannot take oral. Do Not give oral and IV within 1 hour of each other unless specifically ordered. Group 2: ondansetron ODT (Zofran-ODT) disintegrating tablet 4 mgJump to med 4 mg, Oral, Every 8 hours PRN, nausea, vomiting, Starting on Alyce 07/31/23 at 1507, Phase II/On Unit, 1st Line. If inadequate response within 60 minutes, proceed to next-line agent or contact provider if no further options ordered. Patient should allow tablet to dissolve on tongue. Do not remove from blister pack until just before administering. Or ondansetron (Zofran) injection 4 mgJump to med 4 mg, IntraVENous, Every 6 hours PRN, nausea, vomiting, Starting on Alyce 07/31/23 at 1507, Phase II/On Unit, 1st Line. Give IV if patient is unable to take orally. If inadequate response within 60 minutes, proceed to next-line agent or contact provider if no further options ordered. Group 3: oxyCODONE-acetaminophen (Percocet) 5-325 MG per tablet 1 tabletJump to med 1 tablet, Oral, Every 4 hours PRN, moderate pain (4-6), Starting on Alyce 07/31/23 at 1507, Phase II/On Unit, Maximum dose of acetaminophen is 4000 mg from all sources in 24 hours. Or oxyCODONE-acetaminophen (Percocet) 5-325 MG per tablet 2 tabletJump to med 2 tablet, Oral, Every 4 hours PRN, severe pain (7-10), Starting on Alyce 07/31/23 at 1507, Phase II/On Unit, Maximum dose of acetaminophen is 4000 mg from all sources in 24 hours. Scheduled Medication Order 10/04/2023 10/05/2023 10/06/2023 apixaban (Eliquis) tablet 10 mg(Linked Group 1) 10 mg, Oral, 2 times daily, First dose on 10/04/23 at 1015, For 7 days, Anticoagulant 1100 (Given - Provider: Yue Grace RN)2019 (Given - Provider: Tonia Vogel RN) 0840 (Given - Provider: Yue Grace RN)1924 (Given - Provider: Tonia Vogel, AILYN) 0921 (Given - Provider: Tonia Vogel, RN) apixaban (Eliquis) tablet 5 mg(Linked Group 1) 5 mg, Oral, 2 times daily, First dose on Fri10/11/23 at 0900, Anticoagulant cefTRIAXone (Rocephin) 1,000 mg in sodium chloride 0.9 % 50 mL IVPB Mini-Bag Plus (CANCELED) 1,000 mg, IntraVENous, at 100 mL/hr, Administer over 30 Minutes, Every 24 hours, First dose on Fri10/03/23 at 2230, Mini-Bag Plus bag, Suspected Indication (Select all that apply): Urinary Tract Infection 0030 (New Bag - Provider: Gisell Benítez RN)0100 (Stopped - Provider: Gisell Benítez RN) cefTRIAXone (Rocephin) 1,000 mg in sodium chloride 0.9 % 50 mL IVPB Mini-Bag Plus 1,000 mg, IntraVENous, at 100 mL/hr, Administer over 30 Minutes, Every 24 hours, First dose (after last modification) on Fri10/05/23 at 0400, For 3 doses, Mini-Bag Plus bag, Suspected Indication (Select all that apply): Urinary Tract Infection 0305 (New Bag - Provider: Tonia Vogel RN)0335 (Stopped - Provider: Tonia Vogel RN) 0303 (New Bag - Provider: Tonia Vogel RN)0333 (Stopped - Provider: Tonia Vogel RN) enoxaparin (Lovenox) syringe 40 mg (CANCELED) 40 mg, SubCUTAneous, Every 24 hours scheduled (Daily), First dose on Fri10/04/23 at 0900, Indication of Use: Prophylaxis-DVT/PE, Indications: Prophylaxis of Venous Thromboembolism 09 (Given - Provider: Yue Grace, AILYN) fluticasone (Flonase) nasal spray 1 spray 1 spray, Each Nostril, Daily, First dose on Fri10/04/23 at 1845, Shake gently. Before first use, prime pump (press 6 times until fine spray appears). After use, clean tip and replace cap. 1845 (Canceled Entry - Provider: Automatic Discharge Provider - Comment: Automatically canceled at discontinue of medication order) 0840 (Given - Provider: Yue Grace RN) 0922 (Given - Provider: Tonia Vogel, RN) furosemide (Lasix) injection 20 mg (COMPLETED) 20 mg, IntraVENous, Once, On Fri10/03/23 at 2230, For 1 dose 0027 (Given - Provider: Gisell Benítez, AILYN) furosemide (Lasix) injection 20 mg (COMPLETED) 20 mg, IntraVENous, Once, On 10/04/23 at 0045, For 1 dose 0045 (Given - Provider: Gisell Benítez, AILYN) guaiFENesin (Mucinex) 12 hr tablet 600 mg 600 mg, Oral, 2 times daily, First dose on 10/05/23 at 0900, Administer with plenty of fluids to ensure proper action. Do not crush, chew, or split. 0915 (Given - Provider: Yue Grace RN)1924 (Given - Provider: Tonia Vogel, AILYN) 0921 (Given - Provider: Tonia Vogel, AILYN) ipratropium-albuterol (Duo-Neb) 0.5-2.5 mg/3 mL nebulizer solution 3 mL (COMPLETED) 3 mL, Nebulization, Once, On 10/04/23 at 0045, For 1 dose 0051 (Given - Provider: Brenda Dominguez RCP) senna-docusate sodium (Senokot-S) 8.6-50 MG tablet 2 tablet 2 tablet, Oral, Daily, First dose on 10/05/23 at 0930 1101 (Given - Provider: Yue Grace RN) 0921 (Given - Provider: Tonia Vogel, AILYN) valsartan (Diovan) tablet 40 mg 40 mg, Oral, Daily, First dose on 10/04/23 at 0900 0908 (Given - Provider: Yue Grace RN) 0839 (Given - Provider: Yue Grace RN) 0921 (Given - Provider: Tonia Vogel, AILYN) PRN Medication Order 10/04/2023 10/05/2023 10/06/2023 acetaminophen (Tylenol) suppository 650 mg(Linked Group 2) 650 mg, Rectal, Every 6 hours PRN, mild pain (1-3), fever, For temp greater than 100.4 F (38 C), Starting on Fri10/03/23 at 2340, Administer if oral route cannot be used. Maximum dose of acetaminophen is 4000 mg from all sources in 24 hours. acetaminophen (Tylenol) tablet 650 mg(Linked Group 2) 650 mg, Oral, Every 6 hours PRN, mild pain (1-3), fever, For temp greater than 100.4 F (38 C), Starting on Fri10/03/23 at 2340, Maximum dose of acetaminophen is 4000 mg from all sources in 24 hours. albuterol (2.5 MG/3ML) 0.083% nebulizer solution 2.5 mg 2.5 mg, Nebulization, As needed, wheezing, Starting on 10/05/23 at 1015, Every 1 to 3 hours as needed [place] Saline Nasal gel Nasal, Every 2 hour PRN, congestion, Starting on 10/04/23 at 1326 1829 (Given - Provider: Yue Grace, AILYN) 0840 (Given - Provider: Yue Grace, AILYN) carboxymethylcellulose PF (Refresh Plus) 0.5 % ophthalmic solution 1 drop 1 drop, Both Eyes, As needed, dry eyes, Starting on 10/05/23 at 1004 ondansetron (Zofran) injection 4 mg(Linked Group 3) 4 mg, IntraVENous, Every 6 hours PRN, nausea, vomiting, Starting on Fri10/03/23 at 2340, 1st Line. Give IV if patient is unable to take orally. If inadequate response within 60 minutes, proceed to next-line agent or contact provider if no further options ordered. ondansetron ODT (Zofran-ODT) disintegrating tablet 4 mg(Linked Group 3) 4 mg, Oral, Every 8 hours PRN, nausea, vomiting, Starting on Fri10/03/23 at 2340, 1st Line. If inadequate response within 60 minutes, proceed to next-line agent or contact provider if no further options ordered. Patient should allow tablet to dissolve on tongue. Do not remove from blister pack until just before administering. polyethylene glycol (PEG) 3350 (Miralax) packet 17 g 17 g, Oral, Daily PRN, constipation, Starting on Fri10/03/23 at 2340, 1st line for treatment of constipation - give scheduled if no bowel movement in past 24 hours. Linked Groups Order Group 1: apixaban (Eliquis) tablet 10 mgJump to med 10 mg, Oral, 2 times daily, First dose on 10/04/23 at 1015, For 7 days, Anticoagulant Followed by apixaban (Eliquis) tablet 5 mgJump to med 5 mg, Oral, 2 times daily, First dose on 10/11/23 at 0900, Anticoagulant Group 2: acetaminophen (Tylenol) tablet 650 mgJump to med 650 mg, Oral, Every 6 hours PRN, mild pain (1-3), fever, For temp greater than 100.4 F (38 C), Starting on Fri10/03/23 at 2340, Maximum dose of acetaminophen is 4000 mg from all sources in 24 hours. Or acetaminophen (Tylenol) suppository 650 mgJump to med 650 mg, Rectal, Every 6 hours PRN, mild pain (1-3), fever, For temp greater than 100.4 F (38 C), Starting on Fri10/03/23 at 2340, Administer if oral route cannot be used. Maximum dose of acetaminophen is 4000 mg from all sources in 24 hours. Group 3: ondansetron ODT (Zofran-ODT) disintegrating tablet 4 mgJump to med 4 mg, Oral, Every 8 hours PRN, nausea, vomiting, Starting on Fri10/03/23 at 2340, 1st Line. If inadequate response within 60 minutes, proceed to next-line agent or contact provider if no further options ordered. Patient should allow tablet to dissolve on tongue. Do not remove from blister pack until just before administering. Or ondansetron (Zofran) injection 4 mgJump to med 4 mg, IntraVENous, Every 6 hours PRN, nausea, vomiting, Starting on Fri10/03/23 at 2340, 1st Line. Give IV if patient is unable to take orally. If inadequate response within 60 minutes, proceed to next-line agent or contact provider if no further options ordered. Scheduled Medication Order 01/04/2024 01/05/2024 01/06/2024 acetaminophen (Tylenol) tablet 1,000 mg (COMPLETED) 1,000 mg, Oral, Once, On Fri01/05/24 at 0730, For 1 dose, Preprocedure, Maximum dose of acetaminophen is 4000 mg from all sources in 24 hours. Do not administer if patient has taken tylenol <4 hours earlier. Do not give if contraindicated ie. patient has active liver disease or cirrhosis. Please administer 60 min prior to procedure. 0738 (Given - Provider: Arti Christensen RN) cefTRIAXone (Rocephin) 1,000 mg in sodium chloride 0.9 % 50 mL IVPB Mini-Bag Plus (CANCELED) 1,000 mg, IntraVENous, at 100 mL/hr, Administer over 30 Minutes, Every 24 hours, First dose on Fri01/05/24 at 0800, Intraprocedure, Mini-Bag Plus bag, Suspected Indication (Select all that apply): Surgical Prophylaxis, Urinary Tract Infection 0813 (New Bag - Provider: Eren Ramirez CRNA) famotidine (Pepcid) tablet 20 mg (COMPLETED)(Linked Group 1) 20 mg, Oral, Once, On Fri01/05/24 at 0730, For 1 dose, Preprocedure, IV or ORAL 0738 (Given - Provider: Arti Christensen RN) pantoprazole (ProtoNix) EC tablet 40 mg 40 mg, Oral, Daily, First dose on Fri01/06/24 at 0900, Do not crush, chew, or split. 0825 (Given - Provid er: Jarrell Wellington RN) sodium chloride 0.9% (NS) flush 10 mL 10 mL, IntraVENous, Every 12 hours scheduled (2 times per day), First dose on Fri01/05/24 at 1115 1115 (Not Given - Provider: Jessi Ng RN - Reason: Other - Comment: not on unit at time ordered)2100 (Not Given - Provider: Stefany Ibrahim RN - Reason: IV Fluids Infusing) 0900 (Given - Provider: Jarrell Wellington RN) valsartan (Diovan) tablet 40 mg 40 mg, Oral, Daily, First dose on Fri01/06/24 at 0900 0825 (Given - Provid er: Jarrell Wellington RN) Continuous Medication Order 01/04/2024 01/05/2024 01/06/2024 sodium chloride 0.9 % infusion (CANCELED) 50 mL/hr, IntraVENous, Continuous, Starting on Fri01/05/24 at 1115 1420 (New Bag - Provider: Jessi Ng, AILYN) 0600 (Stopped - Provider: Jarrell Wellington RN) PRN Medication Order 01/04/2024 01/05/2024 01/06/2024 acetaminophen (Tylenol) tablet 650 mg 650 mg, Oral, Every 6 hours PRN, mild pain (1-3), Pain (1-10), Starting on Fri01/05/24 at 1104, Give in addition to any other pain medication ordered at same time for any pain indication. bacitracin ointment Topical, Every 4 hours PRN, wound care, Meatal irritation, Starting on Fri01/05/24 at 1101, May administer BID and PRN for urethral meatus care. bupivacaine PF (Marcaine) 0.25 % injection (CANCELED) As needed, Starting on Fri01/05/24 at 1027, Intraprocedure 1027 (Given - Provider: Sana Marcos DO) hydrALAZINE (Apresoline) injection 5 mg (COMPLETED)(Linked Group 2) 5 mg, IntraVENous, Every 15 min PRN, high blood pressure, for SBP greater than 160 mmHg for 2 consecutive measurements taken from different sites, Starting on Fri01/05/24 at 1124, For 2 doses, Recovery (only), PRN for SBP > 160 for 2 consecutive measurements, and if one of the following conditions is met: 1) If IV labetolol is ineffective. 2) If HR is under 60. 3) If patient has heart block, COPD or asthma. If both labetalol and hydralazine ineffective, notify anesthesia provider. 1150 (See Alternative - Provider: Lashawn Desai RN)1205 (Given - Provider: Kimberly Rodriguez RN - Comment: hr 58) labetalol (Normodyne,Trandate) injection 5 mg (COMPLETED)(Linked Group 2) 5 mg, IntraVENous, Every 10 min PRN, high blood pressure, for SBP greater than 160 mmHg for 2 consecutive measurements taken from different sites., Starting on Fri01/05/24 at 1124, For 2 doses, Recovery (only), PRN for SBP >160 for 2 consecutive measurements, if HR is 60 or greater. If beta mando is contraindicated (HR less than 60, heart block, COPD or asthma) use hydralazine IV order. 1150 (Given - Provider: Lashawn Desai, RN)1205 (See Alternative - Provider: Kimberly Rodriguez, AILYN) naloxone (Narcan) injection 0.4 mg 0.4 mg, IntraVENous, Every 5 min PRN, opioid reversal, respiratory depression, Starting on Fri01/05/24 at 1400, +++ For RR <10, pinpoint pupils, over sedation for opioid reversal - MUST notify electronic page makeup system operator provider immediately after first dose, may give IM or SQ if no IV access +++ ondansetron (Zofran) injection 4 mg(Linked Group 3) 4 mg, IntraVENous, Every 6 hours PRN, nausea, vomiting, Starting on Fri01/05/24 at 1101, 1st Line. Give IV if patient is unable to take orally. If inadequate response within 60 minutes, proceed to next-line agent or contact provider if no further options ordered. ondansetron ODT (Zofran-ODT) disintegrating tablet 4 mg(Linked Group 3) 4 mg, Oral, Every 8 hours PRN, nausea, vomiting, Starting on Fri01/05/24 at 1101, 1st Line. If inadequate response within 60 minutes, proceed to next-line agent or contact provider if no further options ordered. Patient should allow tablet to dissolve on tongue. Do not remove from blister pack until just before administering. oxyCODONE (Roxicodone) immediate release tablet 5 mg 5 mg, Oral, Every 6 hours PRN, moderate pain (4-6), severe pain (7-10), Starting on Fri01/05/24 at 1104 1854 (Given - Provider: Rebecca Richmond RN) 0828 (Given - Provider: Jarrell Wellington, AILYN)1521 (Given - Provider: Jarrell Wellington RN) perflutren protein A microsphere (Optison) 3 mL in sodium chloride (PF) 0.9 % 10 mL IV syringe 0-10 mL, IntraVENous, IMG once PRN, other, Suboptimal echo image, Starting on Fri01/06/24 at 1559, For 1 dose, CV Procedural Medications, Administer via slow IVP for suboptimal echocardiogram enhancement. May administer as divided doses to reach optimal image enhancement polyethylene glycol (PEG) 3350 (Miralax) packet 17 g 17 g, Oral, Daily PRN, constipation, Starting on Fri01/05/24 at 1101, 1st line for treatment of constipation - give scheduled if no bowel movement in past 24 hours. sodium chloride 0.9 % infusion 5-250 mL/hr, IntraVENous, PRN, if patient receiving piggyback infusions and maintenance fluids are not ordered OR KVO fluids to protect IV site / prevent frequent line interruptions/ long duration, Starting on Fri01/05/24 at 1101, For piggyback infusion, administer at same rate as piggyback for a total of 25 mL. Enter 25 mL into dose field and piggyback rate into rate field of order. If piggyback is infusing at a rate less than 100 mL/hr, enter 25 mL into dose field and 100 mL/hr into rate field of order. For KVO fluids, enter rate of 20 mL/hr or less into rate field of order. sodium chloride 0.9 % irrigation solution (CANCELED) As needed, Starting on Fri01/05/24 at 0830, Intraprocedure 0830 (Given - Provider: Sana Marcos DO)0836 (Given - Provider: Sana Marcos DO)0840 (Given - Provider: Sana Marcos DO)0846 (Given - Provider: Sana Marcos DO)0853 (Given - Provider: Sana Marcos DO)0859 (Given - Provider: Sana Marcos DO)0904 (Given - Provider: Sana Marcos DO)0910 (Given - Provider: Sana Marcos DO)0916 (Given - Provider: Sana Marcos DO)0922 (Given - Provider: Sana Marcos DO)0927 (Given - Provider: Sana Marcos DO)0933 (Given - Provider: Sana Marcos DO)0939 (Given - Provider: Sana Marcos DO)0945 (Given - Provider: Sana Marcos DO)0957 (Given - Provider: Sana Marcos DO)1004 (Given - Provider: Sana Marcos DO)1014 (Given - Provider: Sana Marcos DO)1039 (Given - Provider: Sana Marcos DO) sodium chloride 0.9% (NS) flush 10 mL 10 mL, IntraVENous, PRN, line care, Starting on Fri01/05/24 at 1101, After every IV line use sterile water irrigation solution (CANCELED) As needed, Starting on Fri01/05/24 at 0823, Intraprocedure 0823 (Canceled Entry - Provider: Sana Marcos DO)1022 (Given - Provider: Sana Marcos DO) Linked Groups Order Group 1: famotidine (Pepcid) tablet 20 mg (COMPLETED)Jump to med 20 mg, Oral, Once, On Fri01/05/24 at 0730, For 1 dose, Preprocedure, IV or ORAL Or famotidine (Pepcid) 20 mg in sodium chloride (PF) 0.9 % 10 mL injection (COMPLETED) 20 mg, IntraVENous, Administer over 2 Minutes, Once, On Fri01/05/24 at 0730, For 1 dose, Preprocedure, IV or ORAL Group 2: labetalol (Normodyne,Trandate) injection 5 mg (COMPLETED)Jump to med 5 mg, IntraVENous, Every 10 min PRN, high blood pressure, for SBP greater than 160 mmHg for 2 consecutive measurements taken from different sites., Starting on Fri01/05/24 at 1124, For 2 doses, Recovery (only), PRN for SBP >160 for 2 consecutive measurements, if HR is 60 or greater. If beta mando is contraindicated (HR less than 60, heart block, COPD or asthma) use hydralazine IV order. Or hydrALAZINE (Apresoline) injection 5 mg (COMPLETED)Jump to med 5 mg, IntraVENous, Every 15 min PRN, high blood pressure, for SBP greater than 160 mmHg for 2 consecutive measurements taken from different sites, Starting on Fri01/05/24 at 1124, For 2 doses, Recovery (only), PRN for SBP > 160 for 2 consecutive measurements, and if one of the following conditions is met: 1) If IV labetolol is ineffective. 2) If HR is under 60. 3) If patient has heart block, COPD or asthma. If both labetalol and hydralazine ineffective, notify anesthesia provider. Group 3: ondansetron ODT (Zofran-ODT) disintegrating tablet 4 mgJump to med 4 mg, Oral, Every 8 hours PRN, nausea, vomiting, Starting on Fri01/05/24 at 1101, 1st Line. If inadequate response within 60 minutes, proceed to next-line agent or contact provider if no further options ordered. Patient should allow tablet to dissolve on tongue. Do not remove from blister pack until just before administering. Or ondansetron (Zofran) injection 4 mgJump to med 4 mg, IntraVENous, Every 6 hours PRN, nausea, vomiting, Starting on Fri01/05/24 at 1101, 1st Line. Give IV if patient is unable to take orally. If inadequate response within 60 minutes, proceed to next-line agent or contact provider if no further options ordered. Scheduled Medication Order 01/26/2024 01/27/2024 01/28/2024 acetaminophen (Tylenol) tablet 1,000 mg 1,000 mg, Oral, Once, On Fri01/28/24 at 1705, For 1 dose, Maximum dose of acetaminophen is 4000 mg from all sources in 24 hours. 1705 (Not Given - Pr ovider: Lacy Anderson RN - Reason: Patient/family refused - Comment: pt states it will not help, Dr. Servin notified) cefTRIAXone (Rocephin) 1,000 mg in sodium chloride 0.9 % 50 mL IVPB Mini-Bag Plus (COMPLETED) 1,000 mg, IntraVENous, at 100 mL/hr, Administer over 30 Minutes, Once, On Fri01/28/24 at 1755, For 1 dose, Mini-Bag Plus bag, Suspected Indication (Select all that apply): Urinary Tract Infection 175 (New Bag - Prov ider: Lacy Anderson RN)183 (Stopped - Provider: Lacy Anderson RN) oxyCODONE (Roxicodone) immediate release tablet 10 mg (COMPLETED) 10 mg, Oral, Once, On Fri01/28/24 at 1715, For 1 dose 1717 (Given - Provid er: Laly Raines RN) Scheduled Medication Order 01/28/2024 01/29/2024 01/30/2024 oxyCODONE (Roxicodone) immediate release tablet 10 mg (COMPLETED) 10 mg, Oral, Once, On Alyce 01/29/24 at 2345, For 1 dose 2348 (Given - Provider: Francois Sanchez RN) Scheduled Medication Order 01/28/2024 01/29/2024 01/30/2024 oxyCODONE (Roxicodone) immediate release tablet 10 mg (COMPLETED) 10 mg, Oral, Once, On 01/30/24 at 2310, For 1 dose 2307 (Given - Provid er: Harriet Gutiérrez RN) FOR RECORDS PERTAINING TO PATIENTS WHO ARE OR HAVE BEEN ENROLLED IN A CHEMICAL DEPENDENCY/SUBSTANCEABUSE PROGRAM, SOME INFORMATION MAY BE OMITTED. This clinical summary was aggregated from multiple sources. Caution should be exercised in using it in the provision of clinical care. This summary normalizes information from multiple sources, and as a consequence, information in this document may materially change the coding, format and clinical context of patient data. In addition, data may be omitted in some cases. CLINICAL DECISIONS SHOULD BE BASED ON THE PRIMARY CLINICAL RECORDS. [employer] provides no warranty or guarantee of the accuracy or completeness of information in this document.
--- NOTE | 2024-10-30 09:40 | CT_ITS ---
PROCEDURE: SINUS/FACIAL BONE 10/30/2024 REASON FOR EXAM: SINUSITIS TECHNIQUE: SINUS/FACIAL BONE Coronal and Sagittal reconstruction series were provided. One or more dose reduction techniques were used (e.g., Automated exposure control, adjustment of the mA and/or kV according to patient size, use of iterative reconstruction technique). RADIATION DOSE SUMMARY: CTDlvol: 33.1 mGy DLP: 817 mGycm COMPARISON: None FINDINGS: Frontal: Unremarkable. The fronto ethmoidal recesses are patent bilaterally. Ethmoid: Minimal mucosal thickening at the anterior aspect of the left ethmoid air cells. Sphenoid: Unremarkable. The sphenoethmoidal recesses are patent bilaterally. Maxillary: Postoperative changes along the medial wall of the maxillary sinuses. Calcification along the inferior wall of the right maxillary sinus measuring 1.3 cm. The ostiomeatal complexes are patent bilaterally. Turbinates: Unremarkable Nasal Septum: Slight rightward deviation of the anterior nasal septum Mastoids/Middle Ears: No mastoid effusion. Atherosclerotic calcification of the intracranial arteries. Status post right cataract extraction. Limited evaluation of the brain is unremarkable. Degenerative changes of the visualized cervical spine, with calcification surrounding the odontoid process. CT/Sinus/Facial Bone IMPRESSION: 1. Calcification measuring 1.3 cm in the right maxillary sinus, which could be the result of chronic sinusitis. 2. Otherwise unremarkable exam. There are postoperative changes, without drai nage pathway obstruction. Reading Location: [id number]
== END | disposition home or self-care (01) ==
LOC: CT 09:31
PROVIDERS: PCP Family Medicine
DX: J32.8 Other chronic sinusitis (principal)
CPT/HCPCS: 70486